=== PATIENT | male | born 1935 | race Caucasian/White ===

== ENCOUNTER 2016-04-09 21:33 | Inpatient (IN) | payer MEDICARE, BC ==
[2016-04-09] MEDS ORDERED: IV VANCOMYCIN PER PHARMACY 1 EACH MISC MISCELLANE PRN (22:04)
[2016-04-09] MEDS ORDERED: ACETAMINOPHEN TAB 325 MG TAB PO STA (22:04)
[2016-04-09] MEDS ORDERED: PIPERACILLIN-TAZOBACTAM 3.375 GM in DEXTROSE/WATER 1 50ML.BAG IVPB STA (22:04)
--- NOTE | 2016-04-09 22:09 | ED ---
Fever HPI - General Chief Complaint: Recheck/Abnormal Lab/Rx Stated Complaint: Fever Time Seen by Provider: 04/09/16 21:39 Source: patient, EMS, RN notes reviewed Mode of arrival: EMS Limitations: no limitations - History of Present Illness Initial Comments: This patient is a 80-year-old man who comes in to be evaluated for 2 days of fever. The patient states that the symptoms started yesterday in the afternoon. He also states he is feeling more fatigued. The patient is concerned he may have urinary tract infection. Patient has history of having to perform intermittent straight cath due to what sounds like neurogenic bladder. The patient had not noted any change in his urine. Patient is denying other symptoms of infection. MD Complaint: fever Onset/Timin -: days(s) Temperature Source: subjective Associated Symptoms: chills Treatments Prior to Arrival: none - Related Data Home Medications Medication Instructions Recorded Confirmed Furosemide [Lasix] 20 mg PO BID 07/17/15 11/17/15 ALPRAZolam [Xanax] 0.25 mg PO TID 11/17/15 11/17/15 Previous Rx's Medication Instructions Recorded Acetaminophen Tab [Tylenol] 650 mg PO Q6HR PRN #0 tab 07/21/15 Aspirin EC [Ecotrin Low Dose] 81 mg PO DAILY #30 tablet. 07/21/15 Insulin NPH Hum/Reg Insulin Hm See Protocol SQ AC-TID #1 vial 07/21/15 [NovoLIN 70-30 100 UNIT/ML VIAL] Nitroglycerin Sl Tabs [Nitrostat] 0.4 mg SUBLINGUAL Q5M PRN #25 tab 07/21/15 Atorvastatin [Lipitor] 40 mg PO DAILY #30 tab 11/20/15 Clopidogrel [Plavix] 75 mg PO DAILY #30 tab 11/20/15 Isosorbide Mononitrate ER [Imdur] 30 mg PO DAILY #30 tab.er.24h 11/20/15 Levofloxacin [Levaquin] 750 mg PO DAILY #7 tab 11/20/15 Lisinopril [Zestril] 5 mg PO BID #60 tab 11/20/15 Metoprolol Tartrate [Lopressor] 25 mg PO BID #60 tab 11/20/15 Allergies Allergy/AdvReac Type Severity Reaction Status Date / Time Iodinated Contrast Media - AdvReac Rash/Hives Verified 11/17/15 22:51 Oral and Review of Systems ROS Statement: Those systems with pertinent positive or pertinent negative responses have been documented in the HPI. ROS Other: All systems not noted in ROS Statement are negative. Constitutional: Reports: fever, chills, weakness Eyes: Denies: eye pain ENT: Denies: throat pain, congestion Respiratory: Denies: cough, dyspnea, hemoptysis Cardiovascular: Denies: chest pain, edema, syncope Endocrine: Reports: fatigue Gastrointestinal: Denies: abdominal pain, nausea, vomiting, diarrhea Genitourinary: Reports: as per HPI. Denies: hematuria, testicular pain Musculoskeletal: Denies: back pain Skin: Denies: rash Neurological: Denies: headache, weakness Past Medical History Past Medical History: Coronary Artery Disease (CAD), Chest Pain / Angina, CVA/ TIA, Diabetes Mellitus, Hypertension, Myocardial Infarction ([place]), Vascular Disorder Additional Past Medical History / Comment(s): URINARY RETENTION from effects from stroke REQUIRING SELF CATH,NEUROPATHY, PER OLD HX: PVD, X3 PR'S [id number]- 2007, NEUROPATHY, CVA/TIA- left arm weakness Last Myocardial Infarction Date:: 2007 History of Any Multi-Drug Resistant Organisms: None Reported Past Surgical History: Coronary Bypass/CABG, Heart Catheterization Additional Past Surgical History / Comment(s): 5 VESSLEL BYPASS 2006, stent RT leg , nimisha CATARACT SX-LENS IMPLANT Past Anesthesia/Blood Transfusion Reactions: No Reported Reaction Date of Last Stent Placement:: 2011 Past Psychological History: No Psychological Hx Reported Smoking Status: Former smoker Past Alcohol Use History: None Reported Additional Past Alcohol Use History / Comment(s): smoked for 23 yrs- quit smoking 2007- smoked 2 PPD. Heavy etoh in the past - not current. Quit 40 years ago. Past Drug Use History: None Reported - Past Family History Brother(s) Family Medical History: Myocardial Infarction ([place]) Mother Family Medical History: Diabetes Mellitus Additional Family Medical History / Comment(s): AT AGE 93 Father Family Medical History: Myocardial Infarction ([place]) Additional Family Medical History / Comment(s): AT AGE 83 FROM [place]. General Exam General appearance: alert, in no apparent distress Head exam: Present: atraumatic, normocephalic Eye exam: Present: normal appearance. Absent: scleral icterus, conjunctival injection ENT exam: Present: mucous membranes dry Neck exam: Present: normal inspection. Absent: meningismus Respiratory exam: Present: normal lung sounds bilaterally. Absent: respiratory distress, wheezes, rales, rhonchi, stridor Cardiovascular Exam: Present: normal rhythm, tachycardia, normal heart sounds. Absent: systolic murmur, diastolic murmur, rubs, gallop GI/Abdominal exam: Present: soft. Absent: distended, tenderness, guarding, rebound, mass Extremities exam: Present: normal inspection, normal capillary refill. Absent: pedal edema, calf tenderness Back exam: Absent: CVA tenderness (R), CVA tenderness (L) Neurological exam: Present: alert, oriented X3 Skin exam: Present: warm, dry, intact, normal color. Absent: rash Course Vital Signs 04/09/16 04/10/16 04/10/16 21:37 00:06 01:46 Temperature 102.2 F H 100.2 F H Pulse Rate 107 H 88 88 Respiratory 16 20 20 Rate Blood Pressure 120/51 117/48 O2 Sat by Pulse 97 97 Oximetry 04/10/16 04/10/16 04/10/16 02:13 03:06 03:33 Temperature 97.7 F Pulse Rate 85 72 76 Respiratory 18 20 18 Rate Blood Pressure 116/56 142/61 114/50 O2 Sat by Pulse 98 94 L Oximetry 04/10/16 04:38 Temperature 97.5 F L Pulse Rate 78 Respiratory 20 Rate Blood Pressure 127/51 O2 Sat by Pulse 98 Oximetry Medical Decision Making - Medical Decision Making Patient is 80-year-old man who presents with fever and is found to have urinary tract infection. I had arranged admission for the patient. He had started antibiotics. While he was waiting for a room here, he developed substernal pain that radiated towards the neck, which sounded very typical for angina. Patient given morphine, nitroglycerin, heparin started. The EKG did show some ST depressions in leads V3-V6, concerning for ischemia. The patient did have resolution of the symptoms and his EKG showed improvement in the ST depressions. Cardiology consultation is added. The patient's repeat troponin is stable. - Lab Data Result diagrams: 04/10/16 02:58 04/10/16 02:58 Lab Results 04/09/16 04/09/16 04/09/16 Range/Units 21:50 21:50 21:50 WBC 17.3 H (3.8-10.6) k/uL RBC 4.59 (4.30-5.90) m/uL Hgb 12.3 L (13.0-17.5) gm/dL Hct 37.6 L (39.0-53.0) % MCV 81.8 (80.0-100.0) fL MCH 26.8 (25.0-35.0) pg MCHC 32.7 (31.0-37.0) g/dL RDW 15.4 (11.5-15.5) % Plt Count 158 (150-450) k/uL Neutrophils % 87 % Lymphocytes % 7 % Monocytes % 5 % Eosinophils % 0 % Basophils % 0 % Neutrophils # 15.0 H (1.3-7.7) k/uL Lymphocytes # 1.2 (1.0-4.8) k/uL Monocytes # 0.9 (0-1.0) k/uL Eosinophils # 0.0 (0-0.7) k/uL Basophils # 0.1 (0-0.2) k/uL PT (9.0-12.0) sec INR (<1.1) APTT (22.0-30.0) sec Sodium 140 (137-145) mmol/L Potassium 4.6 (3.5-5.1) mmol/L Chloride 104 (98-107) mmol/L Carbon Dioxide 22 (22-30) mmol/L Anion Gap 14 mmol/L BUN 57 H (9-20) mg/dL Creatinine 1.50 H (0.66-1.25) mg/dL Est GFR (MDRD) Af Amer 55 (>60 ml/min/1.73 sqM) Est GFR (MDRD) Non-Af 45 (>60 ml/min/1.73 sqM) Glucose 201 H (74-99) mg/dL Plasma Lactic Acid Trevor (0.7-2.0) mmol/L Calcium 9.2 (8.4-10.2) mg/dL Total Bilirubin 0.9 (0.2-1.3) mg/dL AST 27 (17-59) U/L ALT 39 (21-72) U/L Alkaline Phosphatase 114 (38-126) U/L Total Creatine Kinase 133 (55-170) U/L CK-MB (CK-2) 2.1 (0.0-2.4) ng/mL CK-MB (CK-2) Rel Index 1.6 Troponin I 0.414 H* (0.000-0.034) ng/mL Total Protein 7.2 (6.3-8.2) g/dL Albumin 3.9 (3.5-5.0) g/dL Cortisol 49 ug/dL Urine Color Urine Appearance (Clear) Urine pH (5.0-8.0) Ur Specific [place] (1.001-1.035) Urine Protein (Negative) Urine Glucose (UA) (Negative) Urine Ketones (Negative) Urine Blood (Negative) Urine Nitrate (Negative) Urine Bilirubin (Negative) Urine Urobilinogen (<2.0) mg/dL Ur Leukocyte Esterase (Negative) Urine RBC (0-5) /hpf Urine WBC (0-5) /hpf Urine WBC Clumps (None) /hpf Ur Squamous Epith Cells (0-4) /hpf Amorphous Sediment (None) /hpf Urine Bacteria (None) /hpf Urine Mucus (None) /hpf 04/09/16 04/09/16 04/09/16 Range/Units 21:50 21:50 21:50 WBC (3.8-10.6) k/uL RBC (4.30-5.90) m/uL Hgb (13.0-17.5) gm/dL Hct (39.0-53.0) % MCV (80.0-100.0) fL MCH (25.0-35.0) pg MCHC (31.0-37.0) g/dL RDW (11.5-15.5) % Plt Count (150-450) k/uL Neutrophils % % Lymphocytes % % Monocytes % % Eosinophils % % Basophils % % Neutrophils # (1.3-7.7) k/uL Lymphocytes # (1.0-4.8) k/uL Monocytes # (0-1.0) k/uL Eosinophils # (0-0.7) k/uL Basophils # (0-0.2) k/uL PT 11.7 (9.0-12.0) sec INR 1.2 (<1.1) APTT 25.7 (22.0-30.0) sec Sodium (137-145) mmol/L Potassium (3.5-5.1) mmol/L Chloride (98-107) mmol/L Carbon Dioxide (22-30) mmol/L Anion Gap mmol/L BUN (9-20) mg/dL Creatinine (0.66-1.25) mg/dL Est GFR (MDRD) Af Amer (>60 ml/min/1.73 sqM) Est GFR (MDRD) Non-Af (>60 ml/min/1.73 sqM) Glucose (74-99) mg/dL Plasma Lactic Acid Trevor 1.2 (0.7-2.0) mmol/L Calcium (8.4-10.2) mg/dL Total Bilirubin (0.2-1.3) mg/dL AST (17-59) U/L ALT (21-72) U/L Alkaline Phosphatase (38-126) U/L Total Creatine Kinase (55-170) U/L CK-MB (CK-2) (0.0-2.4) ng/mL CK-MB (CK-2) Rel Index Troponin I (0.000-0.034) ng/mL Total Protein (6.3-8.2) g/dL Albumin (3.5-5.0) g/dL Cortisol ug/dL Urine Color Yellow Urine Appearance Cloudy (Clear) Urine pH 5.5 (5.0-8.0) Ur Specific [place] 1.009 (1.001-1.035) Urine Protein 1+ H (Negative) Urine Glucose (UA) Negative (Negative) Urine Ketones Negative (Negative) Urine Blood Moderate H (Negative) Urine Nitrate Positive (Negative) Urine Bilirubin Negative (Negative) Urine Urobilinogen <2.0 (<2.0) mg/dL Ur Leukocyte Esterase Large H (Negative) Urine RBC 5 (0-5) /hpf Urine WBC 96 H (0-5) /hpf Urine WBC Clumps Few H (None) /hpf Ur Squamous Epith Cells <1 (0-4) /hpf Amorphous Sediment Rare H (None) /hpf Urine Bacteria Few H (None) /hpf Urine Mucus Rare H (None) /hpf - EKG Data -: EKG Interpreted by Tx EKG shows normal: sinus rhythm, axis (Normal), intervals (The PA interval was 232 ms consistent with a first-degree AV block other intervals normal), QRS complexes (Normal), ST-T waves (Normal) Critical Care Time Critical Care Time: Yes (45 minutes) Disposition Clinical Impression: Urinary tract infection, Sepsis, Acute coronary syndrome Disposition: ADMITTED IP TO THIS HOSP Condition: Serious
[2016-04-09] MEDS ORDERED: VANCOMYCIN 1,250 MG in SODIUM CHLORIDE 0.9% 250 ML IVPB ONE (22:30)
[2016-04-09 22:38] LABS: Basophils # (A) 0.1 k/uL (0-0.2); Basophils % (A) 0 %; CH 27.4; CHCM 33.6; Eosinophils % (A) 0 %; HCT 37.6 % (39.0-53.0); HDW 2.66; HGB 12.3 gm/dL (13.0-17.5); Luc # (Auto) 0.13; Luc % (Auto) 1; Lymphocytes # (A) 1.2 k/uL (1.0-4.8); Lymphocytes % (A) 7 %; MCH 26.8 pg (25.0-35.0); MCHC 32.7 g/dL (31.0-37.0); MCV 81.8 fL (80.0-100.0); Mean Platelet Volume 7.7; Monocytes # (A) 0.9 k/uL (0-1.0); Monocytes % (A) 5 %; Neutrophils % (A) 87 %; RBC 4.59 m/uL (4.30-5.90); RDW 15.4 % (11.5-15.5); WBC 17.3 k/uL (3.8-10.6); WBC (Perox) 17.29
[2016-04-09 22:44] LABS: Amorphous Sediment,Urine Rare /hpf; Appearance,Urine Cloudy (Clear); Bacteria,Urine Few /hpf; Bilirubin,Urine Negative (Negative); Glucose,Urine (UA) Negative (Negative); Ketones,Urine Negative (Negative); Leukocyte Esterase,Urine Large (Negative); Mucus,Urine Rare /hpf; Nitrite,Urine Positive (Negative); PH, Urine 5.5 (5.0-8.0); Particle Count 50505; Protein,Urine 1+ (Negative); RBC,Urine 5 /hpf (0-5); Specific Gravity,Urine 1.009 (1.001-1.035); Squamous Epithelial Cell,Urine <1 /hpf (0-4); UA Billing (MACRO vs. MICRO) MICRO; Urobilinogen,Urine <2.0 mg/dL (<2.0); WBC,Urine 96 /hpf (0-5)
[2016-04-09 22:46] LABS: INR 1.2 (<1.1); Partial Thromboplastin Time 25.7 sec (22.0-30.0); Prothrombin Time 11.7 sec (9.0-12.0)
[2016-04-09 22:48] LABS: Calcium 9.2 mg/dL (8.4-10.2); Potassium 4.6 mmol/L (3.5-5.1); Total Bilirubin 0.9 mg/dL (0.2-1.3); Total Protein 7.2 g/dL (6.3-8.2)
--- NOTE | 2016-04-09 23:06 | XR ---
EXAMINATION TYPE: XR chest 1V portable DATE OF EXAM: 04/09/2016 10:58 PM COMPARISON: 11/17/2015 HISTORY: Fever history of CAD [place] hypertension. TECHNIQUE: Single frontal view of the chest is obtained. FINDINGS: Mild chronic changes are noted in both lungs with scarring and atelectasis in the left lung base. There is no focal air space opacity, pleural effusion, or pneumothorax seen. The cardiac silhouette size is within normal limits. Postsurgical changes of sternotomy are present. The osseous structures are intact. IMPRESSION: 1. No active pulmonary infiltrates. 2. No significant interval change.
[2016-04-09 23:12] LABS: Creatine Kinase MB 2.1 ng/mL (0.0-2.4)
[2016-04-09 23:14] LABS: Troponin I 0.414 ng/mL (0.000-0.034)
[2016-04-09] MEDS ORDERED: NALOXONE 0.4 MG/ML 1 ML VIAL IV PRN (23:52)
[2016-04-09] MEDS ORDERED: DOCUSATE 100 MG CAP PO PRN (23:52)
[2016-04-09] MEDS ORDERED: ONDANSETRON 4 MG/2 ML VIAL IVP PRN (23:52)
[2016-04-10] MEDS ORDERED: HYDROcodone/APAP 5-325MG 1 EACH TAB PO STA
[2016-04-10] MEDS: ACETAMINOPHEN TAB 325 MG TAB PO PRN ×2 (00:08→16:13)
[2016-04-10] MEDS ORDERED: ASPIRIN 81 MG CHEW PO STA (01:11)
[2016-04-10] MEDS ORDERED: HEPARIN SODIUM,PORCINE 5,000 UNIT/ML 1 ML VIAL IV ONE (01:12)
[2016-04-10] MEDS ORDERED: HEPARIN SODIUM,PORCINE 5,000 UNIT/ML 1 ML VIAL IV PRN (01:12)
[2016-04-10] MEDS: NITROGLYCERIN SL TABS 0.4 MG TAB SUBLINGUAL PRN ×2 (01:14→01:19)
[2016-04-10] MEDS ORDERED: HEPARIN SODIUM,PORCINE/D5W PMX 25,000 UNIT in DEXTROSE/WATER 1 500ML.BAG IV SCH (01:15)
[2016-04-10] MEDS ORDERED: MORPHINE SULFATE 4 MG/ML SYRINGE IV STA ×2 (01:27→02:48)
[2016-04-10] MEDS ORDERED: NITROGLYCERIN-D5W PMX 50 MG in DEXTROSE/WATER 1 250ML.BAG IV SCH ×2 (03:00→14:30)
[2016-04-10 03:13] LABS: Basophils % (A) 0 %; CH 26.6; CHCM 31.5; Eosinophils % (A) 0 %; HCT 35.3 % (39.0-53.0); HDW 2.46; HGB 11.2 gm/dL (13.0-17.5); Luc # (Auto) 0.17; Luc % (Auto) 1; Lymphocytes # (A) 2.4 k/uL (1.0-4.8); Lymphocytes % (A) 15 %; MCH 26.9 pg (25.0-35.0); MCHC 31.7 g/dL (31.0-37.0); MCV 84.8 fL (80.0-100.0); Mean Platelet Volume 7.2; Monocytes # (A) 0.6 k/uL (0-1.0); Monocytes % (A) 4 %; Neutrophils % (A) 80 %; RBC 4.17 m/uL (4.30-5.90); RDW 14.9 % (11.5-15.5); WBC 16.2 k/uL (3.8-10.6); WBC (Perox) 16.94
[2016-04-10 03:47] LABS: Creatine Kinase MB 1.6 ng/mL (0.0-2.4); Troponin I 0.349 ng/mL (0.000-0.034)
[2016-04-10 04:06] LABS: Calcium 8.4 mg/dL (8.4-10.2); Potassium 4.4 mmol/L (3.5-5.1)
[2016-04-10 08:32] LABS: Glucose,Whole Blood 219 mg/dL (75-99)
[2016-04-10] MEDS ORDERED: ISOSORBIDE MONONITRATE ER 30 MG TAB.ER.24H PO SCH (09:00)
[2016-04-10] MEDS ORDERED: METOPROLOL TARTRATE 25 MG TAB PO SCH (09:00)
[2016-04-10 10:07] LABS: Creatine Kinase MB 3.3 ng/mL (0.0-2.4); Troponin I 0.415 ng/mL (0.000-0.034)
[2016-04-10 13:23] LABS: Hemoglobin A1C 9.3 % (4.2-6.1)
[2016-04-10] MEDS: SODIUM CHLORIDE 0.9% 500 ML IV SCH ×4 (14:05→15:08)
[2016-04-10] MEDS: SODIUM CHLORIDE 0.9% 1,000 ML IV SCH ×3 (14:30→16:04)
[2016-04-10] MEDS: INSULIN LISPRO (humaLOG) 300 UNIT/3 ML VIAL SQ SCH ×4 (15:09→21:13)
[2016-04-10 15:23] VITALS: BMI 24.2
[2016-04-10] MEDS: HYDROmorphone 1 MG/ML 1 ML SYRINGE IVP PRN (15:31)
[2016-04-10] MEDS: PIPERACILLIN-TAZOBACTAM 3.375 GM in DEXTROSE/WATER 1 50ML.BAG IVPB SCH ×2 (15:36→18:39)
[2016-04-10] MEDS: ASPIRIN 81 MG CHEW PO SCH (15:41)
[2016-04-10] MEDS: FAMOTIDINE 20 MG TAB PO SCH ×2 (15:41→20:22)
[2016-04-10] MEDS: FUROSEMIDE 20 MG TAB PO SCH ×2 (15:41→20:21)
[2016-04-10] MEDS: ATORVASTATIN 40 MG TAB PO SCH (15:41)
[2016-04-10] MEDS: ALPRAZolam 0.25 MG TAB PO SCH ×3 (15:41→21:13)
[2016-04-10] MEDS: LISINOPRIL 5 MG TAB PO SCH ×2 (15:42→20:21)
[2016-04-10] MEDS ORDERED: TEMAZEPAM 15 MG CAP PO PRN (15:55)
[2016-04-10] MEDS ORDERED: HYDROcodone/APAP 5-325MG 1 EACH TAB PO PRN (15:55)
--- NOTE | 2016-04-10 15:57 | P.CRDCN ---
History of Present Illness History of present illness: 80-year-old male patient presenting with 2 days of fever and UTI. While in the emergency room he started experiencing chest discomfort radiating to the jaw. He was treated with IV nitroglycerin and IV heparin and the discomfort resolved. He states that when he came back up here he started experiencing chest discomfort once again. He is currently on IV nitro and heparin At this time he has a history of fever for the last 2 days he has received IV antibiotics he has a UTI no nausea vomiting diarrhea no muscular skeletal discomfort no dizziness lightheadedness no undue shortness of breath he's complain of chest discomfort with associated ECG changes while on heparin and nitro Medication list was reviewed and as documented in the chart. He did not receive his cardiac medications while he was in the emergency room Cardiac catheterization from June 2015 revealed severe triple-vessel coronary artery disease with a patent SVG to the diagonal, patent MEZA to the LAD but occluded saphenous vein graft to the OM and RCA 2-D echo last year shows left ventricular ejection fraction of 50% Labs are reviewed. White count is elevated at 16.2, platelets are normal, BUN 52 creatinine 1.7 Troponins are abnormal a 0.4, 0.3, 0.4 Impression Urinary tract infection on IV antibiotics with elevated white count and febrile state Chest discomfort associated with ST depression and abnormal chronic enzymes initially relieved with nitroglycerin and IV heparin Hypertension. Patient just got his medications Acute myocardial infarction with ST depression associated with chest discomfort despite IV nitro and heparin Suggest Continue aspirin and Plavix, increase metoprolol Increase lisinopril Blood pressure control I spoke to Dr. Calles regarding coronary angiogram given the fact that he continues to have recurrent chest discomfort with ECG changes despite IV heparin and nitroglycerin Past Medical History Past Medical History: Coronary Artery Disease (CAD), Chest Pain / Angina, CVA/ TIA, Diabetes Mellitus, Hypertension, Myocardial Infarction ([place]), Vascular Disorder Additional Past Medical History / Comment(s): URINARY RETENTION from effects from stroke REQUIRING SELF CATH,NEUROPATHY, PER OLD HX: PVD, X3 DE'S [id number]- 2007, NEUROPATHY, CVA/TIA- left arm weakness Last Myocardial Infarction Date:: 2007 History of Any Multi-Drug Resistant Organisms: None Reported Past Surgical History: Coronary Bypass/CABG, Heart Catheterization Additional Past Surgical History / Comment(s): 5 VESSLEL BYPASS 2006, stent RT leg , nimisha CATARACT SX-LENS IMPLANT Past Anesthesia/Blood Transfusion Reactions: No Reported Reaction Date of Last Stent Placement:: 2011 Past Psychological History: No Psychological Hx Reported Smoking Status: Former smoker Past Alcohol Use History: None Reported Additional Past Alcohol Use History / Comment(s): smoked for 23 yrs- quit smoking 2007- smoked 2 PPD. Heavy etoh in the past - not current. Quit 40 years ago. Past Drug Use History: None Reported - Past Family History Brother(s) Family Medical History: Myocardial Infarction ([place]) Mother Family Medical History: Diabetes Mellitus Additional Family Medical History / Comment(s): AT AGE 93 Father Family Medical History: Myocardial Infarction ([place]) Additional Family Medical History / Comment(s): AT AGE 83 FROM [place]. Medications and Allergies Home Medications Medication Instructions Recorded Confirmed Type ALPRAZolam [Xanax] 0.25 mg PO TID 11/17/15 04/10/16 History Furosemide [Lasix] 40 mg PO DAILY 04/10/16 04/10/16 History Lisinopril [Zestril] 5 mg PO DAILY 04/10/16 04/10/16 History Pregabalin [Lyrica] 25 mg PO DAILY 04/10/16 04/10/16 History Allergies Allergy/AdvReac Type Severity Reaction Status Date / Time Iodinated Contrast Media - AdvReac Rash/Hives Verified 04/10/16 11:21 Oral and Physical Exam Vitals: Vital Signs Temp Pulse Resp BP Pulse Ox 04/10/16 14:41 102 H 186/84 97 04/10/16 13:52 101.5 F H 04/10/16 13:47 114 H 18 179/85 96 04/10/16 12:46 100 20 147/67 95 04/10/16 11:46 106 H 20 191/77 99 04/10/16 11:45 100.4 F H 04/10/16 10:46 90 20 161/64 100 04/10/16 09:46 76 20 136/66 97 04/10/16 08:46 82 20 164/108 90 L 04/10/16 07:46 74 18 143/57 94 L 04/10/16 06:46 78 16 150/86 98 04/10/16 04:38 97.5 F L 78 20 127/51 98 04/10/16 03:33 76 18 114/50 94 L 04/10/16 03:06 72 20 142/61 98 04/10/16 02:13 97.7 F 85 18 116/56 04/10/16 01:46 88 20 117/48 97 04/10/16 00:06 100.2 F H 88 20 120/51 97 Intake and Output 04/10/16 04/10/16 04/10/16 06:59 14:59 22:59 Output Total 1000 Balance -1000 Output: Urine 1000 Uretheral (Alves) 1000 Other: Weight 68.039 kg Patient Weight 04/11/16 06:59 Weight 68.039 kg Results 04/10/16 02:58 04/10/16 02:58 Cardiac Enzymes 04/10/16 04/10/16 Range/Units 02:58 08:46 CK-MB (CK-2) 1.6 3.3 H* (0.0-2.4) ng/mL Troponin I 0.349 H* 0.415 H* (0.000-0.034) ng/mL Coagulation 04/10/16 04/10/16 Range/Units 08:46 14:55 APTT 34.8 H 29.8 (22.0-30.0) sec CBC 04/10/16 Range/Units 02:58 WBC 16.2 H (3.8-10.6) k/uL RBC 4.17 L (4.30-5.90) m/uL Hgb 11.2 L (13.0-17.5) gm/dL Hct 35.3 L (39.0-53.0) % Plt Count 168 (150-450) k/uL Comprehensive Metabolic Panel 04/10/16 Range/Units 02:58 Sodium 142 (137-145) mmol/L Potassium 4.4 (3.5-5.1) mmol/L Chloride 110 H (98-107) mmol/L Carbon Dioxide 18 L (22-30) mmol/L BUN 52 H (9-20) mg/dL Creatinine 1.70 H (0.66-1.25) mg/dL Glucose 216 H (74-99) mg/dL Calcium 8.4 (8.4-10.2) mg/dL Current Medications Generic Name Dose Route Start Last Admin Trade Name Freq PRN Reason Stop Dose Admin Acetaminophen 650 mg 04/09/16 23:52 04/10/16 00:08 Tylenol Tab PO 650 mg Q6HR PRN Administration Mild Pain or Fever > 100.5 Acetaminophen/Hydrocodone Bitart 1 each 04/10/16 15:55 [place] 5-325 PO Q6HR PRN Pain Alprazolam 0.25 mg 04/10/16 09:00 04/10/16 15:41 Xanax PO 0.25 mg TID KODY Administration Aspirin 81 mg 04/10/16 09:00 04/10/16 15:41 Aspirin PO 81 mg DAILY KODY Administration Atorvastatin Calcium 40 mg 04/10/16 09:00 04/10/16 15:41 Lipitor PO 40 mg DAILY KODY Administration Clopidogrel Bisulfate 75 mg 04/10/16 09:00 Plavix PO DAILY [facility] Docusate Sodium 100 mg 04/09/16 23:52 Colace PO BID PRN Constipation Famotidine 20 mg 04/10/16 09:00 04/10/16 15:41 Pepcid PO 20 mg BID KODY Administration Furosemide 20 mg 04/10/16 09:00 04/10/16 15:41 Lasix PO 20 mg BID KODY Administration Heparin Sodium (Porcine) 0 unit 04/10/16 01:12 Heparin IV PER PROTOCOL PRN Low PTT Protocol Hydromorphone HCl 0.5 mg 04/10/16 15:14 04/10/16 15:31 Dilaudid IVP 0.5 mg Q4HR PRN Administration Pain Sodium Chloride 1,000 mls @ 125 mls/hr 04/09/16 23:45 04/10/16 14:48 Saline 0.9% IV Not Given .Q8H [facility] Piperacillin/Tazobactam/ 50 mls @ 12.5 mls/hr 04/10/16 08:00 04/10/16 15:36 Dextrose 3.375 gm/ IV Solution IVPB Not Given Q8HR [facility] Heparin Sodium/Dextrose 25,000 500 mls @ 16.32 mls/hr 04/10/16 01:15 01:22 unit/ IV Solution IV 12 units/kg/hr .Q24H [facility] 16.32 mls/hr Protocol Administration 12 UNITS/KG/HR Vancomycin HCl 1,250 mg/ 250 mls @ 125 mls/hr 04/10/16 23:00 Sodium Chloride IVPB Q24H [facility] Nitroglycerin/Dextrose 50 mg/ 250 mls @ 6 mls/hr 04/10/16 14:30 IV Solution IV .Q24H [facility] Protocol 20 MCG/MIN Insulin Human Lispro 0 unit 04/10/16 07:30 04/10/16 15:36 Humalog SQ Not Given ACHS [facility] Protocol Lisinopril 5 mg 04/10/16 09:00 04/10/16 15:42 Zestril PO 5 mg BID [facility] Administration Metoprolol Tartrate 25 mg 04/10/16 09:00 04/10/16 15:42 Lopressor PO 25 mg BID [facility] Administration Naloxone HCl 0.2 mg 04/09/16 23:52 Narcan IV Q2M PRN Opioid Reversal Nitroglycerin 0.4 mg 04/09/16 23:54 04/10/16 01:19 Nitrostat SUBLINGUAL 0.4 mg Q5M PRN Administration Chest Pain Ondansetron HCl 4 mg 04/09/16 23:52 Zofran IVP Q8HR PRN Nausea And Vomiting Pantoprazole Sodium 40 mg 04/11/16 07:30 Protonix PO AC-BRKFST [facility] Pregabalin 25 mg 04/11/16 09:00 Lyrica PO DAILY [facility] Temazepam 15 mg 04/10/16 15:55 Restoril PO HS PRN Insomnia Intake and Output 04/10/16 04/10/16 04/10/16 06:59 14:59 22:59 Output Total 1000 Balance -1000 Output: Urine 1000 Uretheral (Alves) 1000 Other: Weight 68.039 kg Patient Weight 04/11/16 06:59 Weight 68.039 kg 04/10/16 02:58 04/10/16 02:58
[2016-04-10] MEDS: METOPROLOL TARTRATE 50 MG TAB PO SCH ×2 (16:13→21:13)
[2016-04-10] MEDS: CLOPIDOGREL 75 MG TAB PO SCH (16:13)
[2016-04-10] MEDS ORDERED: METOPROLOL TARTRATE 25 MG TAB PO STA (16:15)
[2016-04-10] MEDS ORDERED: diphenhydrAMINE 50 MG/ML 1 ML VIAL IVP STA (16:25)
[2016-04-10] MEDS ORDERED: FAMOTIDINE 20 MG/2 ML VIAL IV STA (16:25)
[2016-04-10] MEDS ORDERED: methylPREDNISolone SOD SUCCI 125 MG/2 ML VIAL IV STA (16:25)
[2016-04-10] MEDS ORDERED: IV FLUID CONTINUATION 925 ML IV ONE (16:45)
[2016-04-10] MEDS ORDERED: IV FLUID CONTINUATION 950 ML IV ONE (16:45)
[2016-04-10] MEDS ORDERED: LIDOCAINE 2% INJ 20 MG/ML (20 ML MDV) ONE (16:46)
[2016-04-10] MEDS ORDERED: methylPREDNISolone SOD SUCCI 125 MG/2 ML VIAL ONE (16:51)
[2016-04-10] MEDS ORDERED: diphenhydrAMINE 50 MG/ML 1 ML VIAL ONE (16:51)
[2016-04-10] MEDS ORDERED: methylPREDNISolone SOD SUCCI 125 MG/2 ML VIAL IVP ONE (16:55)
[2016-04-10] MEDS ORDERED: diphenhydrAMINE 50 MG/ML 1 ML VIAL IVP ONE (16:55)
[2016-04-10] MEDS ORDERED: LIDOCAINE 2% INJ 20 MG/ML SQ ONE (17:08)
[2016-04-10] MEDS ORDERED: IODIXANOL 320 MG/ML 100 ML INTRAARTER ONE (17:35)
[2016-04-10] MEDS ORDERED: RX INFO: IV CONTRAST WAS GIVEN 1 EACH MISC MISCELLANE PRN (17:38)
[2016-04-10] MEDS ORDERED: SODIUM CHLORIDE 0.9% 1,000 ML IV SCH (17:45)
[2016-04-10 18:15] LABS: Glucose,Whole Blood 219 mg/dL (75-99)
--- NOTE | 2016-04-10 18:52 | HP ---
DATE OF ADMISSION: I am covering for Dr. Duff. The chief complaints are feeling weak and afebrile. HISTORY OF PRESENT ILLNESS: This 80-year-old gentleman with a past medical history of multiple medical problems of CVA, TIA, history of CAD, diabetes mellitus, history of hypertension, history of myocardial infarction, history of urinary retention, CAD, CABG, history of cardiac catheterization, history of nicotine dependence being followed by Dr. Duff and Dr. Garcias in the outpatient setting was complaining of fever and weakness for the last 2 days. The patient apparently had intermittent straight catheterization for neurogenic bladder. The patient came to the [place] emergency room and was evaluated. Patient has elevated white count and elevated creatinine and also features of UTI. Patient admitted for further evaluation and treatment. Patient also complained of chest pain, which is felt in the anterior part of the chest which is rather pressure-type of pain without any radiating or associated symptoms. The patient received multiple medications for the pain. The troponins were also elevated to 0.414 and 0.415 indicating acute xnw-TQ-[id number] myocardial infarction. EKG showed left LVH and as well as diffuse ST-T changes. PAST MEDICAL HISTORY: History of CAD, history of CVA, TIA, history of diabetes, hypertension, myocardial infarction, history of urinary retention, history of neurogenic bladder, history of CAD, CABG, cardiac catheterization. Medications prior to admission include home medications are: 1. Lyrica 25 mg p.o. daily. 2. Nitrostat 0.4 sublingual p.r.n. 3. Lopressor 25 mg p.o. b.i.d. 4. Zestril 5 mg p.o. daily. 5. Imdur 30 mg p.o. daily. 6. Novolin N 70/30 t.i.d. 7. Lasix 40 mg p.o. daily. 8. Plavix 75 mg p.o. daily. 9. Lipitor 40 mg daily. 10. Ecotrin 81 mg p.o. daily. 11. Tylenol 650 q.6 p.r.n. 12. Xanax 0.25 t.i.d. ALLERGIES: IODINATED CONTRAST DYES. FAMILY HISTORY: History of diabetes in the family. SOCIAL HISTORY: Previous history of smoking. No history of smoking or alcohol intake. REVIEW OF SYSTEMS: ENT: No diminished hearing or diminished vision. CARDIOVASCULAR: As mentioned earlier. RESPIRATORY: No cough. GI: No nausea. : As mentioned earlier. NERVOUS SYSTEM: No numbness or weakness. ALLERGY/IMMUNOLOGY: No asthma or hayfever. MUSCULOSKELETAL: As mentioned earlier. HEMATOLOGY: No history of anemia. ENDOCRINE: No diabetes or hypothyroidism. CONSTITUTIONAL: As mentioned earlier. DERMATOLOGY: Negative. PSYCHIATRY: As mentioned earlier. PHYSICAL EXAM: The patient is alert and oriented x3. Pulse is 114, blood pressure 170/85, respirations 18, temperature 101.5, pulse ox 96% on 2 L. HEENT: Conjunctivae normal, oral mucosa moist. NECK: No jugular venous distension, no carotid bruit, no lymph node enlargement. CARDIOVASCULAR: S1, S2, muffled. No S3, no S4. RESPIRATORY: Breath sounds diminished at the bases. A few scattered rhonchi, no crackles. Abdomen is soft, nontender. No mass palpable. No hepatitis. EXTREMITIES: Legs no edema, no swelling. NERVOUS SYSTEM: Higher functions as mentioned. Moves all 4 limbs. No focal motor deficits. LYMPHATICS: No lymph node enlargement in the neck, axillae or groin. SKIN: No ulcerations, bleeding or rashes. JOINTS: No active deformity. LABS: WBC is 16.8, hemoglobin is 11.2, creatinine is 1.6. Accu-Cheks are noted. Troponins are noted. ASSESSMENT: 1. Acute chest pain with possible acute [id number] myocardial infarction with troponin 0.414. 2. Possible urinary tract infection with sepsis, present on admission, possibly during . 3. Increased creatinine, possibly acute on chronic kidney failure. 4. Anemia, normocytic. 5. Increased WBC. 6. History of coronary artery disease, coronary artery bypass grafting. 7. History of cerebrovascular accident, transient ischemic attack. 8. Diabetes mellitus type 2. 9. Hypertension. 10. History of myocardial infarction. 11. History of urinary retention with self-catheterization. 12. Remote history of nicotine dependence. 13. Remote history of Ethyl alcohol. 14. FULL CODE. RECOMMENDATION: In this 80-year-old gentleman who presented with multiple complex medical issues, will monitor the patient closely. Continue with the current medications. Continue with the symptomatic treatment. Continue with antiplatelet agents and beta blockers. We will follow the patient closely with Cardiology. The patient was started on Zosyn and vanco. Will obtain the cultures. Guarded prognosis because of multiple complex medical issues. Further recommendations to follow. Discussed with the patient. Home medications are reconciliation was performed last night. Dr. Fred Duff will follow. [facility]
[2016-04-10 20:56] LABS: Glucose,Whole Blood 248 mg/dL (75-99)
[2016-04-11] MEDS: VANCOMYCIN 1,250 MG in SODIUM CHLORIDE 0.9% 250 ML IVPB SCH ×2 (02:03→21:56)
[2016-04-11] MEDS: SODIUM CHLORIDE 0.9% 1,000 ML IV SCH ×4 (02:11→15:54)
[2016-04-11] MEDS: PIPERACILLIN-TAZOBACTAM 3.375 GM in DEXTROSE/WATER 1 50ML.BAG IVPB SCH ×4 (04:06→23:15)
[2016-04-11 06:14] LABS: Basophils % (A) 0 %; CH 26.5; CHCM 30.3; Eosinophils % (A) 0 %; HCT 38.5 % (39.0-53.0); HDW 2.58; HGB 11.9 gm/dL (13.0-17.5); Hypochromasia Moderate; Luc # (Auto) 0.04; Luc % (Auto) 0; Lymphocytes % (A) 8 %; MCH 27.3 pg (25.0-35.0); MCV 87.9 fL (80.0-100.0); Mean Platelet Volume 7.1; Monocytes # (A) 0.3 k/uL (0-1.0); Monocytes % (A) 3 %; Neutrophils # (A) 10.6 k/uL (1.3-7.7); Neutrophils % (A) 88 %; RBC 4.38 m/uL (4.30-5.90); RDW 15.3 % (11.5-15.5); WBC (Perox) 12.51
[2016-04-11 06:25] LABS: Glucose,Whole Blood 301 mg/dL (75-99)
[2016-04-11 06:26] LABS: Calcium 8.4 mg/dL (8.4-10.2); Potassium 4.4 mmol/L (3.5-5.1)
[2016-04-11] MEDS: INSULIN LISPRO (humaLOG) 300 UNIT/3 ML VIAL SQ SCH ×4 (06:48→21:47)
[2016-04-11] MEDS ORDERED: PANTOPRAZOLE 40 MG TABLET PO SCH (07:30)
[2016-04-11] MEDS: ALPRAZolam 0.25 MG TAB PO SCH ×3 (09:10→21:47)
[2016-04-11] MEDS: METOPROLOL TARTRATE 50 MG TAB PO SCH ×2 (09:11→21:47)
[2016-04-11] MEDS: ISOSORBIDE MONONITRATE ER 30 MG TAB.ER.24H PO SCH (09:11)
[2016-04-11] MEDS: ATORVASTATIN 40 MG TAB PO SCH (09:11)
[2016-04-11] MEDS: ASPIRIN 81 MG CHEW PO SCH (09:11)
[2016-04-11] MEDS: CLOPIDOGREL 75 MG TAB PO SCH (09:11)
[2016-04-11] MEDS: FAMOTIDINE 20 MG TAB PO SCH (09:11)
[2016-04-11] MEDS: FUROSEMIDE 20 MG TAB PO SCH (09:11)
[2016-04-11] MEDS: LISINOPRIL 5 MG TAB PO SCH ×2 (09:11→21:47)
[2016-04-11] MEDS: PREGABALIN 25 MG CAP PO SCH (09:12)
--- NOTE | 2016-04-11 09:21 | P.NPCON ---
History of Present Illness - Reason for Consult acute renal failure - History of Present Illness Reason for consultation: Acute kidney injury History of present illness: Patient is a 80-year-old male seen in renal consultation for acute kidney injury. 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 Creatinine today is 1.4. He does have history of urinary retention and performs self catheterizations at home. He presented with fever as well as a urinary tract infection. He did complete course of oral antibiotics at home but is unsure as to the name of the antibiotic. He is currently maintained on IV Zosyn and vancomycin. He subsequently developed chest pain and underwent a cardiac catheterization on April 10. No interventions were done but he was noted to have disease of the circumflex. Currently denies any active chest pain or shortness of breath. Denies any vomiting or diarrhea. Appetite is fair. Does take pain medications [id number] but is unsure of the name. Admits to good urine output. No hematuria or dysuria. Vital signs are stable. General: The patient appeared well nourished and normally developed. HEENT: Head exam is unremarkable. Neck is without jugular venous distension. LUNGS: Lungs are clear to auscultation and percussion. Breath sounds decreased. HEART: Rate and Rhythm are regular. First and second heart sounds normal. No murmurs, rubs or gallops. ABDOMEN: Abdominal exam reveals normal bowel sounds. Non-tender and non- distended. No evidence of peritonitis. EXTREMITITES: No clubbing, cyanosis, or edema. Past Medical History Past Medical History: Coronary Artery Disease (CAD), Chest Pain / Angina, CVA/ TIA, Diabetes Mellitus, Hypertension, Myocardial Infarction (MS), Vascular Disorder Additional Past Medical History / Comment(s): URINARY RETENTION from effects from stroke REQUIRING SELF CATH,NEUROPATHY, PER OLD HX: PVD, X3 MS'S [id number]- 2007, NEUROPATHY, CVA/TIA- left arm weakness Last Myocardial Infarction Date:: 2007 History of Any Multi-Drug Resistant Organisms: None Reported Past Surgical History: Coronary Bypass/CABG, Heart Catheterization Additional Past Surgical History / Comment(s): 5 VESSLEL BYPASS 2006, stent RT leg , nimisha CATARACT SX-LENS IMPLANT Past Anesthesia/Blood Transfusion Reactions: No Reported Reaction Date of Last Stent Placement:: 2011 Past Psychological History: No Psychological Hx Reported Smoking Status: Former smoker Past Alcohol Use History: None Reported Additional Past Alcohol Use History / Comment(s): smoked for 23 yrs- quit smoking 2007- smoked 2 PPD. Heavy etoh in the past - not current. Quit 40 years ago. Past Drug Use History: None Reported - Past Family History Brother(s) Family Medical History: Myocardial Infarction (MS) Mother Family Medical History: Diabetes Mellitus Additional Family Medical History / Comment(s): AT AGE 93 Father Family Medical History: Myocardial Infarction (MS) Additional Family Medical History / Comment(s): AT AGE 83 FROM MS. Medications and Allergies Home Medications Medication Instructions Recorded Confirmed Type ALPRAZolam [Xanax] 0.25 mg PO TID 11/17/15 04/10/16 History Furosemide [Lasix] 40 mg PO DAILY 04/10/16 04/10/16 History Lisinopril [Zestril] 5 mg PO DAILY 04/10/16 04/10/16 History Pregabalin [Lyrica] 25 mg PO DAILY 04/10/16 04/10/16 History Allergies Allergy/AdvReac Type Severity Reaction Status Date / Time Iodinated Contrast Media - AdvReac Rash/Hives Verified 04/10/16 11:21 Oral and Physical Exam Vitals: Vital Signs Temp Pulse Pulse Resp BP BP Pulse Ox 04/11/16 04:00 97.0 F L 73 16 171/73 92 L 04/11/16 00:00 98.1 F 65 17 140/63 96 04/10/16 20:45 76 16 145/63 93 L 04/10/16 20:00 97.4 F L 76 16 126/60 94 L 04/10/16 19:15 76 16 109/56 04/10/16 18:45 76 16 138/64 04/10/16 18:30 74 16 120/57 04/10/16 18:15 77 16 158/74 04/10/16 18:00 97.1 F L 72 12 123/60 04/10/16 17:26 20 04/10/16 16:23 99.8 F H 04/10/16 16:00 112 H 16 04/10/16 14:45 101.4 F H 112 H 16 191/79 95 04/10/16 14:41 102 H 186/84 97 01/22/17 13:52 101.5 F H 04/10/16 13:47 114 H 18 179/85 96 04/10/16 12:46 100 20 147/67 95 04/10/16 11:46 106 H 20 191/77 99 04/10/16 11:45 100.4 F H 04/10/16 10:46 90 20 161/64 100 04/10/16 09:46 76 20 136/66 97 Intake and Output 04/10/16 04/11/16 04/11/16 22:59 06:59 14:59 Intake Total 100 1300 100 Output Total 1700 Balance 100 -400 100 Intake: IV 100 1300 Piperacillin-Tazobactam 3 50 .375 gm In Dextrose/Water 1 50ml.bag @ 12.5 mls/hr IVPB Q8HR [facility] Rx#: [id number] Sodium Chloride 0.9% 1, 1000 000 ml @ 100 mls/hr IV . Q10H [facility] Rx#:[id number] Vancomycin 1,250 mg In 250 Sodium Chloride 0.9% 250 ml @ 125 mls/hr IVPB Q24H [facility] Rx#:[id number] Oral 100 Output: Urine 1700 Uretheral (Alves) 400 Other: Voiding Method Indwelling Catheter Indwelling Catheter # Bowel Movements 1 Weight 68 kg Results - Lab Results Most recent lab results Calcium 8.4 mg/dL (8.4-10.2) 04/11/16 05:47 04/11/16 05:47 04/11/16 05:47 Assessment and Plan Plan: Assessment: #1. Nonoliguric acute kidney injury mostly prerenal in nature secondary to sepsis and NSTEMI. Creatinine was 1.7 yesterday and is improved to 1.4 today. #2. Chronic kidney disease stage III secondary to diabetic kidney disease with baseline creatinine in the range of 1.2-1.4. #3. Chronic urinary retention. Patient performs self catheterizations. #4. Non-ST elevated myocardial infarction. #5. Urinary tract infection. #6. Hypertension with chronic kidney disease. #7. Diastolic CHF. #8. Hyperchloremic metabolic acidosis secondary to IV fluids. Plan: I will decrease rate of IV fluids to 75 mL an hour. Avoid nephrotoxic agents and hypotensive episodes. Follow-up cultures. Currently on antibiotics. Monitor vancomycin levels. It appears patient will need intervention to the circumflex. At that time, fluids will continue at 75 mL an hour. I will also give him 4 doses of Mucomyst. Continue to monitor renal function and urine output. Start oral sodium bicarbonate 650 mg twice daily. Thank you for the consultation. I will continue to follow the patient with you during his hospital stay.
[2016-04-11] MEDS: SODIUM BICARBONATE TAB 650 MG TAB PO SCH ×2 (10:25→21:47)
[2016-04-11 11:38] LABS: Glucose,Whole Blood 301 mg/dL (75-99)
--- NOTE | 2016-04-11 12:23 | P.PN ---
Subjective Principal diagnosis: Urinary tract infection; acute non-ST elevation myocardial infarction Patient is 80-year-old white male with complex medical history admitted with sepsis secondary to of urinary tract infection, chest pain secondary to acute non-ST elevation myocardial infarction, and acute on chronic renal failure. Last night patient underwent heart catheterization with evidence of disease of the circumflex, no interventions were done. Patient is evaluated from selective care unit. Denies chills, fevers, nausea, vomiting, shortness of breath, chest pain, abdominal pain, constipation, or diarrhea. Alves catheter has been inserted, urine output adequate. Afebrile. WBC decreased to 12. Hemoglobin stable at 11.9. Creatinine decreased to 1.4. Glucose 315. Objective - Vital Signs Vital signs: Vital Signs Temp 96.9 F L 04/11/16 08:00 Pulse 78 04/11/16 08:00 Resp 16 04/11/16 04:00 BP 175/70 04/11/16 08:00 Pulse Ox 94 L 04/11/16 08:00 Intake & Output 04/10/16 04/11/16 04/11/16 18:59 06:59 18:59 Intake Total 100 1300 100 Output Total 1000 1700 Balance -900 -400 100 Weight 68.039 kg 68 kg Intake: IV 100 1300 Piperacillin-Tazobactam 3 50 .375 gm In Dextrose/Water 1 50ml.bag @ 12.5 mls/hr IVPB Q8HR [facility] Rx#: [id number] Sodium Chloride 0.9% 1, 1000 000 ml @ 100 mls/hr IV . Q10H [facility] Rx#:[id number] Vancomycin 1,250 mg In 250 Sodium Chloride 0.9% 250 ml @ 125 mls/hr IVPB Q24H [facility] Rx#:[id number] Oral 100 Output: Urine 1000 1700 Uretheral (Alves) 1000 400 Other: Voiding Method Indwelling Catheter Indwelling Catheter Indwelling Catheter # Bowel Movements 1 - Exam GENERAL: Pt awake and alert, well-appearing, well-nourished, and in no acute distress. HEAD: Atraumatic, normocephalic. EYES: Pupils equal and round. Sclera anicteric, conjunctiva are normal. ENT: Moist mucous membranes. NECK:Normal range of motion, supple without lymphadenopathy or JVD. LUNGS: Breath sounds clear to auscultation bilaterally. No wheezes, rales, or rhonchi. HEART: Heart S1, S2, no S3 or S4. Regular rate and rhythm. No murmurs, rubs or gallops. ABDOMEN: Soft, nontender, nondistended, normoactive bowel sounds. No guarding, no rebound. No masses or organomegaly appreciated. EXTREMITIES: 2+ peripheral pulses. No edema. No calf tenderness. NEUROLOGICAL: Pt oriented x 3. Cranial nerves II through XII grossly intact. Strength and sensation grossly intact. PSYCH: Normal mood, normal affect. SKIN: Warm, dry, intact. Normal turgor. No rashes or lesions. - Labs CBC & Chem 7: 04/11/16 05:47 04/11/16 05:47 Labs: Abnormal Lab Results - Last 24 Hours (Table) 04/10/16 04/10/16 04/10/16 Range/Units 02:58 18:11 20:54 WBC (3.8-10.6) k/uL Hgb (13.0-17.5) gm/dL Hct (39.0-53.0) % Neutrophils # (1.3-7.7) k/uL Chloride (98-107) mmol/L Carbon Dioxide (22-30) mmol/L BUN (9-20) mg/dL Creatinine (0.66-1.25) mg/dL Glucose (74-99) mg/dL POC Glucose (mg/dL) 219 H 248 H (75-99) mg/dL Hemoglobin A1c 9.3 H (4.2-6.1) % 04/11/16 04/11/16 04/11/16 Range/Units 05:47 05:47 06:23 WBC 12.0 H (3.8-10.6) k/uL Hgb 11.9 L (13.0-17.5) gm/dL Hct 38.5 L (39.0-53.0) % Neutrophils # 10.6 H (1.3-7.7) k/uL Chloride 111 H (98-107) mmol/L Carbon Dioxide 18 L (22-30) mmol/L BUN 43 H (9-20) mg/dL Creatinine 1.40 H (0.66-1.25) mg/dL Glucose 315 H (74-99) mg/dL POC Glucose (mg/dL) 301 H (75-99) mg/dL Hemoglobin A1c (4.2-6.1) % 04/11/16 Range/Units 11:37 WBC (3.8-10.6) k/uL Hgb (13.0-17.5) gm/dL Hct (39.0-53.0) % Neutrophils # (1.3-7.7) k/uL Chloride (98-107) mmol/L Carbon Dioxide (22-30) mmol/L BUN (9-20) mg/dL Creatinine (0.66-1.25) mg/dL Glucose (74-99) mg/dL POC Glucose (mg/dL) 301 H (75-99) mg/dL Hemoglobin A1c (4.2-6.1) % Assessment and Plan Plan: Impression and plan: 1. Acute chest pain secondary to acute non-ST elevation myocardial infarction status post heart catheterization with no intervention at this point. Patient will need intervention once infection is cleared. Cardiology consult in place, recommendations noted. Continue Imdur. 2. Sepsis suspect secondary to urinary tract infection, present on admission. Continue IV antibiotics in the form of Zosyn and vancomycin. Await results of urine and blood cultures. 3. Acute renal failure secondary to sepsis and non-STEMI. Creatinine improved from 1.7-1.4. Nephrology consult in place, recommendations noted. IV fluids has been cut down to 75 mL an hour, patient has been started on sodium bicarbonate. Patient will be given 4 doses of Mucomyst. 4. Chronic kidney failure, stage III secondary to diabetic kidney disease with baseline creatinine in the range of 1.2-1.4. 5. Anemia, normocytic. 6. Leukocytosis. 7. History of coronary artery disease and coronary artery bypass grafting. Continue aspirin. 8. History of cerebrovascular accident, transient ischemic attack. Continue aspirin and Plavix. 9. Diabetes mellitus type 2. Continue Accu-Cheks before meals at bedtime with Humalog sliding scale. Continue consistent carbohydrate diet. Consult to childbirth educator in place. 10. Hypertension with chronic kidney disease. Continue metoprolol, lisinopril.. 11. Chronic diastolic congestive heart failure. Ejection fraction 50%. Continue Lasix. 12. Hyperchloremic metabolic acidosis secondary to IV fluids. IV fluids has been decreased to 75 mL an hour. 13. Hyperlipidemia. Continue Lipitor. 14. 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 Continue Lyrica. 15. History of myocardial infarction. 16. History of neurogenic bladder and urinary retention with self- catheterization. 17. History of remote alcohol abuse. 18. DVT prophylaxis. Continue subcu heparin. Continue pneumatic compression sleeves. 19. GI prophylaxis. Continue Pepcid. 20. Repeat CBC and BMP in a.m. The above impression and plan have been discussed and directed by Dr. Duff. Beatrice KIMBROUGH acting as scribe for Dr. Duff.
--- NOTE | 2016-04-11 13:02 | CC ---
DATE OF SERVICE: PERFORMING PHYSICIAN: Caden Garcias M.D. job development specialist. PROCEDURE PERFORMED: 1. Selective left and right coronary angiogram. 2. SVG to diag angiogram. 3. MEZA to LAD angiogram. INDICATION: This is a pleasant 80-year-old gentleman who is known to have coronary artery disease, peripheral arterial disease, hypertension, and dyslipidemia presented to the hospital complaining of chest discomfort. The last heart catheterization was performed in June 2015 and at that point it showed severe disease involving the left and right coronary system with patent venograph to diagonal and patent MEZA to the LAD. These are the two grafts identified at that time. This time he presented to the hospital with symptoms of UTI, but he was experiencing chest discomfort and EKG changes consistent with ischemia. He was seen and evaluated by Dr. Le who recommended proceeding with a heart catheterization. Approach: Right common femoral artery. COMPLICATIONS: None. Level of sedation: Moderate. PROCEDURE DESCRIPTION: After obtaining an informed consent, the patient was brought to the cardiac cath lab radiology technician. The right common femoral artery was cannulated using micropuncture technique. The micropuncture wire passed easily. Then I placed 6 Mongolian sheath in the right common femoral artery. After that, I did selective left and right coronary angiogram using JL4 and JR4 catheters. SVG to diagonal angiogram and MEZA to LAD angiogram was performed using the JR4 catheter. The procedure was completed without any complication. SELECTIVE CORONARY ANGIOGRAM: 1. The left main is a moderate caliber vessel. The distal left main has critical disease, appeared to be in the range of 70%. It bifurcates into the left anterior descending artery, and left circumflex. 2. The left circumflex: The ostial and proximal left circumflex has a tight lesion appeared to have a tight lesion appeared to be in the range of 80% to 90%. The mid left circumflex and distal left circumflex appeared to have mild disease only. In the proximal portion, the left circumflex gives rise into 2 small diagonal branches obtuse marginal branches. Distally bifurcates into PDA branch and PLV branches. 3. Left anterior descending artery: 100% occluded from the ostium. 4. The RCA is 100% occluded in the midportion. CORONARY BYPASS ANGIOGRAM: 1. Vein graft to diagonal is patent. 2. MEZA to LAD is patent. CONCLUSION: 1. Severe left main coronary artery disease. 2. Occluded right coronary artery. 3. The left internal mammary artery to the left anterior descending coronary artery is patent. 4. The saphenous vein graft to diagonal is patent. 5. The saphenous vein graft to left circumflex seems to be occluded. POSTPROCEDURE MANAGEMENT: The patient will benefit from PCI of the left circumflex coronary artery which seems to unprotected. I will do that once his UTI symptoms have improved and also once he is hydrated enough in view of the chronic kidney disease. At the same time, we will maximize medical treatment at this point.
--- NOTE | 2016-04-11 14:59 | P.PN ---
Subjective Principal diagnosis: Fever and UTI This is a pleasant 80-year-old gentleman who presented to the hospital with 2 days of fever and UTI. While in the emergency room patient started experiencing some chest discomfort with radiation to the jaw. He was treated with IV nitroglycerin and heparin and the discomfort resolved. On arrival to the floor patient again began developing chest pain, had associated EKG changes in spite of being on nitroglycerin and heparin drips, for this reason patient was taken to the cardiac catheterization lab. Cardiac catheterization revealed severe left main coronary artery disease with occluded right coronary artery, left internal mammary artery to the LAD was patent, SVG to the diagonal patent, SVG to the circumflex occluded. It is felt that the patient would benefit from PCI of the left circumflex artery which seems to be unprotected. Once the symptoms of UTI and fever have subsided this will be performed. Overall patient was seen and examined today, denies any further chest discomfort. BUN is 43, creatinine 1.4. Blood pressure 160/70, heart rate in the 60s. Objective - Vital Signs Vital signs: Vital Signs Temp 96.9 F L 04/11/16 08:00 Pulse 65 04/11/16 12:00 Resp 16 04/11/16 04:00 BP 164/70 04/11/16 12:00 Pulse Ox 95 04/11/16 12:00 Intake & Output 04/10/16 04/11/16 04/11/16 18:59 06:59 18:59 Intake Total 100 1300 750 Output Total 1000 1700 Balance -900 -400 750 Weight 68.039 kg 68 kg 68 kg Intake: IV 100 1300 650 Piperacillin-Tazobactam 3 50 50 .375 gm In Dextrose/Water 1 50ml.bag @ 12.5 mls/hr IVPB Q8HR [facility] Rx#: [id number] Sodium Chloride 0.9% 1, 1000 600 000 ml @ 100 mls/hr IV . Q10H [facility] Rx#:[id number] Vancomycin 1,250 mg In 250 Sodium Chloride 0.9% 250 ml @ 125 mls/hr IVPB Q24H [facility] Rx#:[id number] Oral 100 Output: Urine 1000 1700 Uretheral (Alves) 1000 400 Other: Voiding Method Indwelling Catheter Indwelling Catheter Indwelling Catheter # Bowel Movements 1 - Exam PHYSICAL EXAMINATION: HEENT: Head is atraumatic, normocephalic. Pupils equal, round. Neck is supple. There is no elevated jugular venous pressure. HEART EXAMINATION: Heart S1, S2 normal. No murmur or gallop heard. CHEST EXAMINATION: Lungs are clear to auscultation and precussion. No chest wall tenderness is noted on palpation or with deep breathing. ABDOMEN: Soft, nontender. Bowel sounds are heard. No organomegaly noted. Right groin soft, no evidence of any hematoma. EXTREMITIES: 2+ peripheral pulses with no evidence of peripheral edema and no calf tenderness noted. NEUROLOGIC patient is awake, alert and oriented -3. . - Labs CBC & Chem 7: 04/11/16 05:47 04/11/16 05:47 Labs: Abnormal Lab Results - Last 24 Hours (Table) 04/10/16 04/10/16 04/11/16 Range/Units 18:11 20:54 05:47 WBC 12.0 H (3.8-10.6) k/uL Hgb 11.9 L (13.0-17.5) gm/dL Hct 38.5 L (39.0-53.0) % Neutrophils # 10.6 H (1.3-7.7) k/uL Chloride (98-107) mmol/L Carbon Dioxide (22-30) mmol/L BUN (9-20) mg/dL Creatinine (0.66-1.25) mg/dL Glucose (74-99) mg/dL POC Glucose (mg/dL) 219 H 248 H (75-99) mg/dL 04/11/16 04/11/16 04/11/16 Range/Units 05:47 06:23 11:37 WBC (3.8-10.6) k/uL Hgb (13.0-17.5) gm/dL Hct (39.0-53.0) % Neutrophils # (1.3-7.7) k/uL Chloride 111 H (98-107) mmol/L Carbon Dioxide 18 L (22-30) mmol/L BUN 43 H (9-20) mg/dL Creatinine 1.40 H (0.66-1.25) mg/dL Glucose 315 H (74-99) mg/dL POC Glucose (mg/dL) 301 H 301 H (75-99) mg/dL Assessment and Plan (1) S/P cardiac cath Status: Acute (2) Acute coronary syndrome Status: Acute (3) Sepsis Status: Acute (4) Urinary tract infection Status: Acute (5) Diabetes mellitus Status: Acute (6) Fever Status: Acute Plan: From cardiology's perspective, we'll continue the patient on his current medications. Once he is stable from a sepsis and UTI perspective, he will undergo circumflex stenting. DNP note has been reviewed, I agree with a documented findings and plan of care. Patient was seen and examined.
--- NOTE | 2016-04-11 16:02 | CDI ---
In responding to this query, please exercise your independent professional judgment. The [facility] Coding Staff and Clinical Documentation Specialists appreciate your assistance in clarifying documentation, maintaining compliance with coding guidelines, accurately documenting patients condition and capturing severity of illness. The fact that a question is asked does not imply that any particular answer is desired or expected. Communication forms are a method of clarifying documentation and are not made part of the Legal Health Record. Thank you in advance for your clarification. Last Revision, January [address] [facility] [address] Documentation Clarification Form Date: 04/11/2016 3:56:00 PM From: Mitzy Gupta Admit Date: 04/09/2016 11:52:00 PM Patient Name: Fred Patton Visit Number: [id number] Dr. Fred Duff and Beatrice Patterson NP History/Risk Factors: Patient self caths Urinary retention Neurogenic bladder CVA history Diabetes Mellitus type 2 Clinical Indicators: Vital Signs: temp 102.2, hr 107, rr 16 WBC: 17.3 Urinalysis: cloudy, 1+ protein, moderate blood, +nitrate, large leuks, wbc 96 Urine Culture: gram negative bacilli (preliminary report) Treatment: Antibiotics: IV Zosyn, IV Vancomycin IV fluids Please document the condition that these clinical indicators signify, whether Present on Admission, and cause if known: UTI If due to catheter, device or implant, please document Contaminated specimen Unable to determine Other Please document in your progress notes and discharge summary in order to capture severity of illness and risk of mortality. Include clinical findings that support your diagnosis. FYI: Press F11 to launch patient chart. Place X here if this finding has no clinical significance, is not applicable or if you are not able to provide any additional documentation. TUAN
[2016-04-11 16:55] LABS: Glucose,Whole Blood 258 mg/dL (75-99)
[2016-04-11 20:45] LABS: Glucose,Whole Blood 209 mg/dL (75-99)
[2016-04-11] MEDS: HEPARIN SODIUM,PORCINE 5,000 UNIT/ML 1 ML VIAL SQ SCH (21:46)
[2016-04-12] MEDS: SODIUM CHLORIDE 0.9% 1,000 ML IV SCH ×2 (05:54→17:22)
[2016-04-12 06:22] LABS: Glucose,Whole Blood 284 mg/dL (75-99)
[2016-04-12] MEDS: INSULIN LISPRO (humaLOG) 300 UNIT/3 ML VIAL SQ SCH ×6 (06:35→20:37)
[2016-04-12 06:56] LABS: Basophils % (A) 0 %; CH 27.2; Eosinophils % (A) 0 %; HCT 36.5 % (39.0-53.0); HDW 2.85; HGB 11.8 gm/dL (13.0-17.5); Luc # (Auto) 0.09; Luc % (Auto) 1; Lymphocytes # (A) 1.4 k/uL (1.0-4.8); Lymphocytes % (A) 11 %; MCH 26.8 pg (25.0-35.0); MCHC 32.2 g/dL (31.0-37.0); MCV 83.1 fL (80.0-100.0); Mean Platelet Volume 7.8; Monocytes # (A) 0.8 k/uL (0-1.0); Monocytes % (A) 6 %; Neutrophils # (A) 10.9 k/uL (1.3-7.7); Neutrophils % (A) 82 %; RBC 4.39 m/uL (4.30-5.90); RDW 15.5 % (11.5-15.5); WBC 13.3 k/uL (3.8-10.6); WBC (Perox) 13.13
[2016-04-12 07:08] LABS: Calcium 8.4 mg/dL (8.4-10.2); Potassium 4.1 mmol/L (3.5-5.1)
[2016-04-12] MEDS: PIPERACILLIN-TAZOBACTAM 3.375 GM in DEXTROSE/WATER 1 50ML.BAG IVPB SCH ×3 (08:46→23:57)
[2016-04-12] MEDS: ASPIRIN 81 MG CHEW PO SCH (08:53)
[2016-04-12] MEDS: ALPRAZolam 0.25 MG TAB PO SCH (08:53)
[2016-04-12] MEDS: CLOPIDOGREL 75 MG TAB PO SCH (08:53)
[2016-04-12] MEDS: ATORVASTATIN 40 MG TAB PO SCH (08:53)
[2016-04-12] MEDS: FAMOTIDINE 20 MG TAB PO SCH (08:54)
[2016-04-12] MEDS: LISINOPRIL 5 MG TAB PO SCH (08:56)
[2016-04-12] MEDS: ISOSORBIDE MONONITRATE ER 30 MG TAB.ER.24H PO SCH (08:56)
[2016-04-12] MEDS: HEPARIN SODIUM,PORCINE 5,000 UNIT/ML 1 ML VIAL SQ SCH ×2 (08:56→20:36)
[2016-04-12] MEDS: METOPROLOL TARTRATE 50 MG TAB PO SCH ×2 (08:57→20:36)
[2016-04-12] MEDS: SODIUM BICARBONATE TAB 650 MG TAB PO SCH ×2 (08:57→20:36)
[2016-04-12] MEDS: PREGABALIN 25 MG CAP PO SCH (08:57)
--- NOTE | 2016-04-12 09:35 | P.PN ---
Subjective Patient is seen in follow-up for acute kidney injury on chronic kidney disease. 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 Renal function is mildly worsened today with creatinine at 1.6. He underwent a cardiac catheterization in April 10 which revealed diffuse coronary artery disease. He will require another catheterization this admission for intervention of the left circumflex coronary artery. Currently resting in bed. Denies any active chest pain or shortness of breath. Admits to good urine output. Vital signs are stable. General: The patient appeared well nourished and normally developed. HEENT: Head exam is unremarkable. Neck is without jugular venous distension. LUNGS: Lungs are clear to auscultation and percussion. Breath sounds decreased. HEART: Rate and Rhythm are regular. First and second heart sounds normal. No murmurs, rubs or gallops. ABDOMEN: Abdominal exam reveals normal bowel sounds. Non-tender and non- distended. No evidence of peritonitis. EXTREMITITES: No clubbing, cyanosis, or edema. Objective - Vital Signs Vital signs: Vital Signs Temp 97.5 F L 04/12/16 07:44 Pulse 89 04/12/16 07:44 Resp 28 H 04/12/16 07:44 BP 178/80 04/12/16 08:13 Pulse Ox 93 L 04/12/16 07:44 Intake & Output 04/11/16 04/12/16 04/12/16 18:59 06:59 18:59 Intake Total 1030 350 180 Output Total 2100 750 Balance 1030 -1750 -570 Weight 68 kg 67.5 kg Intake: IV 650 110 Piperacillin-Tazobactam 3 50 50 .375 gm In Dextrose/Water 1 50ml.bag @ 12.5 mls/hr IVPB Q8HR [facility] Rx#: [id number] Sodium Chloride 0.9% 1, 600 000 ml @ 100 mls/hr IV . Q10H [facility] Rx#:[id number] Vancomycin 1,250 mg In 60 Sodium Chloride 0.9% 250 ml @ 125 mls/hr IVPB Q24H [facility] Rx#:[id number] Oral 380 240 180 Output: Urine 2100 750 Other: Voiding Method Indwelling Catheter Indwelling Catheter Indwelling Catheter - Labs CBC & Chem 7: 04/12/16 06:37 04/12/16 06:37 Labs: Abnormal Lab Results - Last 24 Hours (Table) 04/11/16 04/11/16 04/11/16 Range/Units 11:37 16:53 20:42 WBC (3.8-10.6) k/uL Hgb (13.0-17.5) gm/dL Hct (39.0-53.0) % Neutrophils # (1.3-7.7) k/uL Chloride (98-107) mmol/L Carbon Dioxide (22-30) mmol/L BUN (9-20) mg/dL Creatinine (0.66-1.25) mg/dL Glucose (74-99) mg/dL POC Glucose (mg/dL) 301 H 258 H 209 H (75-99) mg/dL 04/12/16 04/12/16 04/12/16 Range/Units 06:17 06:37 06:37 WBC 13.3 H (3.8-10.6) k/uL Hgb 11.8 L (13.0-17.5) gm/dL Hct 36.5 L (39.0-53.0) % Neutrophils # 10.9 H (1.3-7.7) k/uL Chloride 110 H (98-107) mmol/L Carbon Dioxide 20 L (22-30) mmol/L BUN 40 H (9-20) mg/dL Creatinine 1.60 H (0.66-1.25) mg/dL Glucose 288 H (74-99) mg/dL POC Glucose (mg/dL) 284 H (75-99) mg/dL Assessment and Plan Plan: Assessment: #1. Nonoliguric acute kidney injury mostly prerenal in nature secondary to sepsis and NSTEMI. Renal function worsened with creatinine at 1.6 today. This is related to an element of contrast-induced nephropathy which she received on April 10. #2. Chronic kidney disease stage III secondary to diabetic kidney disease with baseline creatinine in the range of 1.2-1.4. #3. Chronic urinary retention. Patient performs self catheterizations. Currently has a Alves catheter. #4. Non-ST elevated myocardial infarction. #5. Urinary tract infection. Urine culture positive for gram-negative bacilli. #6. Hypertension with chronic kidney disease. #7. Diastolic CHF. #8. Hyperchloremic metabolic acidosis secondary to IV fluids. Plan: I will decrease rate of IV fluids to 50 mL an hour. Avoid nephrotoxic agents and hypotensive episodes. Hold diuretics. Follow-up cultures. Currently on antibiotics. Monitor vancomycin levels. It appears patient will need intervention to the circumflex. At that time, fluids will continue at 75 mL an hour. I will also give him 4 doses of Mucomyst. Continue to monitor renal function and urine output. Maintain oral sodium bicarbonate 650 mg twice daily.
[2016-04-12] MEDS: FUROSEMIDE 20 MG TAB PO SCH (10:22)
[2016-04-12 11:50] LABS: Glucose,Whole Blood 222 mg/dL (75-99)
--- NOTE | 2016-04-12 12:23 | P.PN ---
Subjective Principal diagnosis: Urinary tract infection; acute non-ST elevation myocardial infarction Patient is 80-year-old white male with complex medical history admitted with sepsis secondary to of urinary tract infection, chest pain secondary to acute non-ST elevation myocardial infarction, and acute on chronic renal failure. Patient is status post heart catheterization with evidence of severe left main coronary artery disease with occluded right coronary artery, left internal mammary artery to the LAD was patent, SVG to the diagonal patent, SVG to the circumflex occluded. Plan to perform PCI of the left circumflex artery 1 to and fever has subsided. Upon examination, patient denies chills, fevers, nausea, vomiting, shortness of breath, chest pain, abdominal pain, constipation , or diarrhea. Urine output adequate. Afebrile. WBC increased to 13.3 from 12. Hemoglobin stable at 11.8. Creatinine increased to 1.6. Urine culture positive for Klebsiella pneumoniae. Objective - Vital Signs Vital signs: Vital Signs Temp 97.1 F L 04/12/16 11:06 Pulse 67 04/12/16 11:06 Resp 20 04/12/16 11:06 BP 158/66 04/12/16 11:06 Pulse Ox 91 L 04/12/16 11:06 Intake & Output 04/11/16 04/12/16 04/12/16 18:59 06:59 18:59 Intake Total 1030 350 180 Output Total 2100 750 Balance 1030 -1750 -570 Weight 68 kg 67.5 kg Intake: IV 650 110 Piperacillin-Tazobactam 3 50 50 .375 gm In Dextrose/Water 1 50ml.bag @ 12.5 mls/hr IVPB Q8HR [facility] Rx#: [id number] Sodium Chloride 0.9% 1, 600 000 ml @ 100 mls/hr IV . Q10H [facility] Rx#:[id number] Vancomycin 1,250 mg In 60 Sodium Chloride 0.9% 250 ml @ 125 mls/hr IVPB Q24H [facility] Rx#:[id number] Oral 380 240 180 Output: Urine 2100 750 Other: Voiding Method Indwelling Catheter Indwelling Catheter Indwelling Catheter - Exam GENERAL: Pt awake and alert, well-appearing, well-nourished, and in no acute distress. HEAD: Atraumatic, normocephalic. EYES: Pupils equal and round. Sclera anicteric, conjunctiva are normal. ENT: Moist mucous membranes. NECK:Normal range of motion, supple without lymphadenopathy or JVD. LUNGS: Breath sounds clear to auscultation bilaterally. No wheezes, rales, or rhonchi. HEART: Heart S1, S2, no S3 or S4. Regular rate and rhythm. No murmurs, rubs or gallops. ABDOMEN: Soft, nontender, nondistended, normoactive bowel sounds. No guarding, no rebound. No masses or organomegaly appreciated. EXTREMITIES: 2+ peripheral pulses. No edema. No calf tenderness. NEUROLOGICAL: Pt oriented x 3. Cranial nerves II through XII grossly intact. Strength and sensation grossly intact. PSYCH: Normal mood, normal affect. SKIN: Warm, dry, intact. Normal turgor. No rashes or lesions. - Labs CBC & Chem 7: 04/12/16 06:37 04/12/16 06:37 Labs: Abnormal Lab Results - Last 24 Hours (Table) 04/11/16 04/11/16 04/12/16 Range/Units 16:53 20:42 06:17 WBC (3.8-10.6) k/uL Hgb (13.0-17.5) gm/dL Hct (39.0-53.0) % Neutrophils # (1.3-7.7) k/uL Chloride (98-107) mmol/L Carbon Dioxide (22-30) mmol/L BUN (9-20) mg/dL Creatinine (0.66-1.25) mg/dL Glucose (74-99) mg/dL POC Glucose (mg/dL) 258 H 209 H 284 H (75-99) mg/dL 04/12/16 04/12/16 04/12/16 Range/Units 06:37 06:37 11:47 WBC 13.3 H (3.8-10.6) k/uL Hgb 11.8 L (13.0-17.5) gm/dL Hct 36.5 L (39.0-53.0) % Neutrophils # 10.9 H (1.3-7.7) k/uL Chloride 110 H (98-107) mmol/L Carbon Dioxide 20 L (22-30) mmol/L BUN 40 H (9-20) mg/dL Creatinine 1.60 H (0.66-1.25) mg/dL Glucose 288 H (74-99) mg/dL POC Glucose (mg/dL) 222 H (75-99) mg/dL Assessment and Plan Plan: Impression and plan: 1. Acute chest pain secondary to acute non-ST elevation myocardial infarction status post heart catheterization with no intervention at this point. Patient will need intervention once infection is cleared. Cardiology consult in place, recommendations noted. 2. Sepsis suspect secondary to urinary tract infection, present on admission. Continue IV antibiotics in the form of Zosyn. Will discontinue vancomycin. Urine culture with evidence of Klebsiella pneumoniae. 3. Acute renal failure secondary to sepsis and non-STEMI and contrast induced. Creatinine slightly worsened to 1.6 from 1.4. Nephrology consult in place, recommendations noted. Continue sodium bicarbonate. Patient will be given 4 doses of Mucomyst. 4. Chronic kidney failure, stage III secondary to diabetic kidney disease with baseline creatinine in the range of 1.2-1.4. 5. Anemia, normocytic. 6. Leukocytosis. WBC increased to 13.3 from 12. 7. History of coronary artery disease and coronary artery bypass grafting. Continue aspirin. 8. History of cerebrovascular accident, transient ischemic attack. Continue aspirin and Plavix. 9. Diabetes mellitus type 2. Initiate Lantus protocol. Continue Accu-Cheks before meals at bedtime with Humalog sliding scale. Continue consistent carbohydrate diet. Consult to patient educator in place. 10. Hypertension with chronic kidney disease. Continue metoprolol, lisinopril. 11. Chronic diastolic congestive heart failure. Ejection fraction 50%. Lasix at this time has been discontinued secondary to renal failure. 12. Hyperchloremic metabolic acidosis secondary to IV fluids. IV fluids has been decreased to 50 mL an hour. 13. Hyperlipidemia. Continue Lipitor. 14. 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 Continue Lyrica. 15. History of myocardial infarction. 16. History of neurogenic bladder and urinary retention with self- catheterization. 17. History of remote alcohol abuse. 18. DVT prophylaxis. Continue subcu heparin. Continue pneumatic compression sleeves. 19. GI prophylaxis. Continue Pepcid. 20. Repeat CBC and BMP in a.m. The above impression and plan have been discussed and directed by Dr. Duff. Beatrice KIMBROUGH acting as scribe for Dr. Duff.
[2016-04-12] MEDS ORDERED: NITROGLYCERIN SL TABS 0.4 MG TAB SUBLINGUAL PRN (14:15)
[2016-04-12] MEDS ORDERED: SODIUM CHLORIDE 0.9% 1,000 ML in EMPTY BAG 1 BAG IV ONE (14:15)
[2016-04-12] MEDS ORDERED: ALPRAZolam 0.25 MG TAB PO PRN (14:15)
[2016-04-12] MEDS ORDERED: ASPIRIN 325 MG TAB PO STA (14:15)
[2016-04-12] MEDS ORDERED: ATORVASTATIN 80 MG TAB PO STA (14:15)
[2016-04-12] MEDS ORDERED: ALPRAZolam 0.5 MG TAB PO PRN (14:15)
--- NOTE | 2016-04-12 14:18 | P.PN ---
Subjective Principal diagnosis: Fever and UTI This is a pleasant 80-year-old gentleman who presented to the hospital with 2 days of fever and UTI. While in the emergency room patient started experiencing some chest discomfort with radiation to the jaw. He was treated with IV nitroglycerin and heparin and the discomfort resolved. On arrival to the floor patient again began developing chest pain, had associated EKG changes in spite of being on nitroglycerin and heparin drips, for this reason patient was taken to the cardiac catheterization lab. Cardiac catheterization revealed severe left main coronary artery disease with occluded right coronary artery, left internal mammary artery to the LAD was patent, SVG to the diagonal patent, SVG to the circumflex occluded. It is felt that the patient would benefit from PCI of the left circumflex artery which seems to be unprotected. Patient has remained afebrile, white blood cell count today 13, creatinine 1.6. Currently receiving IV fluids at 75 mL an hour. Blood pressure 178/80 earlier this morning, 158/66 now. We will add Norvasc to his medication regime and decrease the Lisinopril to once daily. Patient will be scheduled tomorrow to undergo intervention of the circumflex artery by Dr. Calles. The risks and the benefits were explained to the patient in detail. We will check lytes BUN and creatinine in the morning. Objective - Vital Signs Vital signs: Vital Signs Temp 97.1 F L 04/12/16 11:06 Pulse 79 04/12/16 12:00 Resp 20 04/12/16 11:06 BP 158/66 04/12/16 11:06 Pulse Ox 91 L 04/12/16 11:06 Intake & Output 04/11/16 04/12/16 04/12/16 18:59 06:59 18:59 Intake Total 1030 350 180 Output Total 2100 750 Balance 1030 1750 -570 Weight 68 kg 67.5 kg Intake: IV 650 110 Piperacillin-Tazobactam 3 50 50 .375 gm In Dextrose/Water 1 50ml.bag @ 12.5 mls/hr IVPB Q8HR [facility] Rx#: [id number] Sodium Chloride 0.9% 1, 600 000 ml @ 100 mls/hr IV . Q10H [facility] Rx#:[id number] Vancomycin 1,250 mg In 60 Sodium Chloride 0.9% 250 ml @ 125 mls/hr IVPB Q24H [facility] Rx#:[id number] Oral 380 240 180 Output: Urine 2100 750 Other: Voiding Method Indwelling Catheter Indwelling Catheter Indwelling Catheter - Exam PHYSICAL EXAMINATION: HEENT: Head is atraumatic, normocephalic. Pupils equal, round. Neck is supple. There is no elevated jugular venous pressure. HEART EXAMINATION: Heart S1, S2 normal. No murmur or gallop heard. CHEST EXAMINATION: Lungs are clear to auscultation and precussion. No chest wall tenderness is noted on palpation or with deep breathing. ABDOMEN: Soft, nontender. Bowel sounds are heard. No organomegaly noted. Right groin soft, no evidence of any hematoma. EXTREMITIES: 2+ peripheral pulses with no evidence of peripheral edema and no calf tenderness noted. NEUROLOGIC patient is awake, alert and oriented -3. . - Labs CBC & Chem 7: 04/12/16 06:37 04/12/16 06:37 Labs: Abnormal Lab Results - Last 24 Hours (Table) 04/11/16 04/11/16 04/12/16 Range/Units 16:53 20:42 06:17 WBC (3.8-10.6) k/uL Hgb (13.0-17.5) gm/dL Hct (39.0-53.0) % Neutrophils # (1.3-7.7) k/uL Chloride (98-107) mmol/L Carbon Dioxide (22-30) mmol/L BUN (9-20) mg/dL Creatinine (0.66-1.25) mg/dL Glucose (74-99) mg/dL POC Glucose (mg/dL) 258 H 209 H 284 H (75-99) mg/dL 04/12/16 04/12/16 04/12/16 Range/Units 06:37 06:37 11:47 WBC 13.3 H (3.8-10.6) k/uL Hgb 11.8 L (13.0-17.5) gm/dL Hct 36.5 L (39.0-53.0) % Neutrophils # 10.9 H (1.3-7.7) k/uL Chloride 110 H (98-107) mmol/L Carbon Dioxide 20 L (22-30) mmol/L BUN 40 H (9-20) mg/dL Creatinine 1.60 H (0.66-1.25) mg/dL Glucose 288 H (74-99) mg/dL POC Glucose (mg/dL) 222 H (75-99) mg/dL Assessment and Plan (1) S/P cardiac cath Status: Acute (2) Acute coronary syndrome Status: Acute (3) Sepsis Status: Acute (4) Urinary tract infection Status: Acute (5) Diabetes mellitus Status: Acute (6) Fever Status: Acute Plan: From cardiology's perspective, we will add Norvasc to the patient's medication regime, decreased LLOYD inhibitor to once daily. Check lytes BUN and creatinine in the morning. Patient will be scheduled tomorrow to undergo PCI of the circumflex artery by Dr. Calles. DNP note has been reviewed, I agree with a documented findings and plan of care. Patient was seen and examined.
[2016-04-12 16:44] LABS: Glucose,Whole Blood 97 mg/dL (75-99)
[2016-04-12] MEDS: amLODIPine 10 MG TAB PO SCH (17:20)
[2016-04-12 20:34] LABS: Glucose,Whole Blood 155 mg/dL (75-99)
[2016-04-12] MEDS: ACETYLCYSTEINE 800 MG/4 ML VIAL PO SCH (20:37)
[2016-04-12] MEDS ORDERED: INSULIN GLARGINE 100 UNIT/ML 10 ML VIAL SQ SCH (21:00)
[2016-04-12] MEDS ORDERED: VANCOMYCIN TROUGH DUE 1 EACH MISC MISCELLANE ONE (22:00)
[2016-04-13] MEDS: PIPERACILLIN-TAZOBACTAM 3.375 GM in DEXTROSE/WATER 1 50ML.BAG IVPB SCH ×3 (00:20→17:13)
[2016-04-13] MEDS: INSULIN LISPRO (humaLOG) 300 UNIT/3 ML VIAL SQ SCH ×7 (06:33→21:35)
[2016-04-13] MEDS: SODIUM CHLORIDE 0.9% 1,000 ML IV SCH ×2 (06:34→21:33)
[2016-04-13 06:37] LABS: Basophils % (A) 0 %; CH 26.8; CHCM 32.1; Eosinophils # (A) 0.2 k/uL (0-0.7); Eosinophils % (A) 2 %; HCT 37.6 % (39.0-53.0); HDW 2.76; HGB 11.6 gm/dL (13.0-17.5); Luc # (Auto) 0.15; Luc % (Auto) 1; Lymphocytes # (A) 1.7 k/uL (1.0-4.8); Lymphocytes % (A) 16 %; MCH 25.9 pg (25.0-35.0); MCHC 30.9 g/dL (31.0-37.0); MCV 83.9 fL (80.0-100.0); Mean Platelet Volume 6.9; Monocytes # (A) 0.6 k/uL (0-1.0); Monocytes % (A) 5 %; Neutrophils # (A) 8.2 k/uL (1.3-7.7); Neutrophils % (A) 76 %; RBC 4.48 m/uL (4.30-5.90); RDW 15.3 % (11.5-15.5); WBC 10.7 k/uL (3.8-10.6); WBC (Perox) 10.99
[2016-04-13] MEDS: HEPARIN SODIUM,PORCINE 5,000 UNIT/ML 1 ML VIAL SQ SCH ×2 (06:39→21:32)
[2016-04-13] MEDS: ISOSORBIDE MONONITRATE ER 30 MG TAB.ER.24H PO SCH (06:40)
[2016-04-13] MEDS: LISINOPRIL 5 MG TAB PO SCH (06:40)
[2016-04-13] MEDS: ASPIRIN 81 MG CHEW PO SCH (06:40)
[2016-04-13] MEDS: FAMOTIDINE 20 MG TAB PO SCH (06:40)
[2016-04-13] MEDS: ATORVASTATIN 40 MG TAB PO SCH (06:40)
[2016-04-13] MEDS: CLOPIDOGREL 75 MG TAB PO SCH (06:40)
[2016-04-13] MEDS: amLODIPine 10 MG TAB PO SCH (06:40)
[2016-04-13] MEDS: ACETYLCYSTEINE 800 MG/4 ML VIAL PO SCH ×2 (06:40→22:00)
[2016-04-13] MEDS: METOPROLOL TARTRATE 50 MG TAB PO SCH ×2 (06:41→21:33)
[2016-04-13] MEDS: PREGABALIN 25 MG CAP PO SCH (06:41)
[2016-04-13 06:48] LABS: Calcium 8.9 mg/dL (8.4-10.2); Potassium 3.7 mmol/L (3.5-5.1)
[2016-04-13 06:57] LABS: Glucose,Whole Blood 225 mg/dL (75-99)
[2016-04-13] MEDS: SODIUM BICARBONATE TAB 650 MG TAB PO SCH ×2 (07:31→21:33)
[2016-04-13] MEDS ORDERED: methylPREDNISolone SOD SUCCI 125 MG/2 ML VIAL IVP ONE (08:15)
--- NOTE | 2016-04-13 09:17 | P.PN ---
Subjective Patient is seen in follow-up for acute kidney injury on chronic kidney disease. 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 Renal function is improved today with creatinine down to 1.48. He underwent a cardiac catheterization in April 10 which revealed diffuse coronary artery disease. He will require another catheterization this admission for intervention of the left circumflex coronary artery. Currently resting in bed. Denies any active chest pain or shortness of breath. Admits to good urine output. Vital signs are stable. General: The patient appeared well nourished and normally developed. HEENT: Head exam is unremarkable. Neck is without jugular venous distension. LUNGS: Lungs are clear to auscultation and percussion. Breath sounds decreased. HEART: Rate and Rhythm are regular. First and second heart sounds normal. No murmurs, rubs or gallops. ABDOMEN: Abdominal exam reveals normal bowel sounds. Non-tender and non- distended. No evidence of peritonitis. EXTREMITITES: No clubbing, cyanosis, or edema. Objective - Vital Signs Vital signs: Vital Signs Temp 97.8 F 04/13/16 08:57 Pulse 84 04/13/16 08:34 Resp 16 04/13/16 08:57 BP 154/72 04/13/16 08:57 Pulse Ox 91 L 04/13/16 08:57 Intake & Output 04/12/16 04/13/16 04/13/16 18:59 06:59 18:59 Intake Total 624 700 Output Total 1750 1800 Balance -1126 -1100 Weight 70.6 kg Intake: IV 700 0.9 600 Piperacillin-Tazobactam 3 100 .375 gm In Dextrose/Water 1 50ml.bag @ 12.5 mls/hr IVPB Q8HR [facility] Rx#: [id number] Oral 624 Output: Urine 1750 1800 Other: Voiding Method Indwelling Catheter Indwelling Catheter Indwelling Catheter - Labs CBC & Chem 7: 04/13/16 05:55 04/13/16 05:55 Labs: Abnormal Lab Results - Last 24 Hours (Table) 04/12/16 04/12/16 04/13/16 Range/Units 11:47 20:32 05:55 WBC 10.7 H (3.8-10.6) k/uL Hgb 11.6 L (13.0-17.5) gm/dL Hct 37.6 L (39.0-53.0) % MCHC 30.9 L (31.0-37.0) g/dL Neutrophils # 8.2 H (1.3-7.7) k/uL BUN (9-20) mg/dL Creatinine (0.66-1.25) mg/dL Glucose (74-99) mg/dL POC Glucose (mg/dL) 222 H 155 H (75-99) mg/dL 04/13/16 04/13/16 Range/Units 05:55 06:56 WBC (3.8-10.6) k/uL Hgb (13.0-17.5) gm/dL Hct (39.0-53.0) % MCHC (31.0-37.0) g/dL Neutrophils # (1.3-7.7) k/uL BUN 26 H (9-20) mg/dL Creatinine 1.48 H (0.66-1.25) mg/dL Glucose 220 H (74-99) mg/dL POC Glucose (mg/dL) 225 H (75-99) mg/dL Assessment and Plan Plan: Assessment: #1. Nonoliguric acute kidney injury mostly prerenal in nature secondary to sepsis and NSTEMI. Also component of contrast-induced nephropathy (cath April 10). Renal function improved with creatinine at 1.48 today. #2. Chronic kidney disease stage III secondary to diabetic kidney disease with baseline creatinine in the range of 1.2-1.4. #3. Chronic urinary retention. Patient performs self catheterizations. Currently has a Alves catheter. #4. Non-ST elevated myocardial infarction. #5. Urinary tract infection. Urine culture positive for Klebsiella. #6. Hypertension with chronic kidney disease. #7. Diastolic CHF. #8. Hyperchloremic metabolic acidosis secondary to IV fluids. Improved. Plan: Maintain normal saline to be run at 75 mL an hour. Avoid nephrotoxic agents and hypotensive episodes. Hold diuretics. Currently on antibiotics. Monitor vancomycin levels. It appears patient will need intervention to the circumflex - possibly today - continue IV fluids at 75 mL an hour. Also receiving mucomyst. Continue to monitor renal function and urine output. Maintain oral sodium bicarbonate 650 mg twice daily. Continue to monitor renal function and urine output closely.
[2016-04-13 12:15] LABS: Glucose,Whole Blood 249 mg/dL (75-99)
--- NOTE | 2016-04-13 12:58 | P.PN ---
Subjective Principal diagnosis: Urinary tract infection; acute non-ST elevation myocardial infarction Patient is 80-year-old white male with complex medical history admitted with sepsis secondary to of urinary tract infection, chest pain secondary to acute non-ST elevation myocardial infarction, and acute on chronic renal failure. Patient is status post heart catheterization with evidence of severe left main coronary artery disease with occluded right coronary artery, left internal mammary artery to the LAD was patent, SVG to the diagonal patent, SVG to the circumflex occluded. Plan to perform PCI of the left circumflex artery today or tomorrow. Upon examination, patient denies chills, fevers, nausea, vomiting, shortness of breath, chest pain, abdominal pain, constipation, or diarrhea. Urine output adequate. Afebrile. WBC to 10.7. Hemoglobin stable at 11.6. Creatinine improved to 1.48 from 1.6. Urine culture positive for Klebsiella pneumoniae. Objective - Vital Signs Vital signs: Vital Signs Temp 97.8 F 04/13/16 08:57 Pulse 84 04/13/16 08:34 Resp 16 04/13/16 08:57 BP 154/72 04/13/16 08:57 Pulse Ox 91 L 04/13/16 08:57 Intake & Output 04/12/16 04/13/16 04/13/16 18:59 06:59 18:59 Intake Total 624 700 Output Total 1750 1800 Balance -1126 -1100 Weight 70.6 kg Intake: IV 700 0.9 600 Piperacillin-Tazobactam 3 100 .375 gm In Dextrose/Water 1 50ml.bag @ 12.5 mls/hr IVPB Q8HR [facility] Rx#: [id number] Oral 624 Output: Urine 1750 1800 Other: Voiding Method Indwelling Catheter Indwelling Catheter Indwelling Catheter - Exam GENERAL: Pt awake and alert, well-appearing, well-nourished, and in no acute distress. HEAD: Atraumatic, normocephalic. EYES: Pupils equal and round. Sclera anicteric, conjunctiva are normal. ENT: Moist mucous membranes. NECK:Normal range of motion, supple without lymphadenopathy or JVD. LUNGS: Breath sounds clear to auscultation bilaterally. No wheezes, rales, or rhonchi. HEART: Heart S1, S2, no S3 or S4. Regular rate and rhythm. No murmurs, rubs or gallops. ABDOMEN: Soft, nontender, nondistended, normoactive bowel sounds. No guarding, no rebound. No masses or organomegaly appreciated. EXTREMITIES: 2+ peripheral pulses. No edema. No calf tenderness. NEUROLOGICAL: Pt oriented x 3. Cranial nerves II through XII grossly intact. Strength and sensation grossly intact. PSYCH: Normal mood, normal affect. SKIN: Warm, dry, intact. Normal turgor. No rashes or lesions. - Labs CBC & Chem 7: 04/13/16 05:55 04/13/16 05:55 Labs: Abnormal Lab Results - Last 24 Hours (Table) 04/12/16 04/13/16 04/13/16 Range/Units 20:32 05:55 05:55 WBC 10.7 H (3.8-10.6) k/uL Hgb 11.6 L (13.0-17.5) gm/dL Hct 37.6 L (39.0-53.0) % MCHC 30.9 L (31.0-37.0) g/dL Neutrophils # 8.2 H (1.3-7.7) k/uL BUN 26 H (9-20) mg/dL Creatinine 1.48 H (0.66-1.25) mg/dL Glucose 220 H (74-99) mg/dL POC Glucose (mg/dL) 155 H (75-99) mg/dL 04/13/16 04/13/16 Range/Units 06:56 12:05 WBC (3.8-10.6) k/uL Hgb (13.0-17.5) gm/dL Hct (39.0-53.0) % MCHC (31.0-37.0) g/dL Neutrophils # (1.3-7.7) k/uL BUN (9-20) mg/dL Creatinine (0.66-1.25) mg/dL Glucose (74-99) mg/dL POC Glucose (mg/dL) 225 H 249 H (75-99) mg/dL Assessment and Plan Plan: Impression and plan: 1. Acute chest pain secondary to acute non-ST elevation myocardial infarction status post heart catheterization with findings of severe left main coronary artery disease with occluded right coronary artery, left internal mammary artery to the LAD was patent, SVG to the diagonal patent, SVG to circumflex occluded. Patient is scheduled for heart catheterization today for PCI of the left circumflex artery. Cardiology consult in place, recommendations noted. 2. Sepsis suspect secondary to urinary tract infection, present on admission, suspect secondary to history of neurogenic bladder with self-catheterization. Continue IV antibiotics in the form of Zosyn. Urine culture with evidence of Klebsiella pneumoniae. 3. Acute renal failure secondary to sepsis and non-STEMI and contrast induced. Creatinine improved to 1.48 from 1.6. Nephrology consult in place, recommendations noted. Continue sodium bicarbonate. 4. Chronic kidney failure, stage III secondary to diabetic kidney disease with baseline creatinine in the range of 1.2-1.4. 5. Anemia, normocytic. 6. Leukocytosis. WBC decreased to 10.7 from 13.3. 7. History of coronary artery disease and coronary artery bypass grafting. Continue aspirin. 8. History of cerebrovascular accident, transient ischemic attack. Continue aspirin and Plavix. 9. Diabetes mellitus type 2, blood sugars uncontrolled. Increase Lantus to 25 units at bedtime. Continue Accu-Cheks before meals at bedtime with Humalog sliding scale. Continue consistent carbohydrate diet. Consult to nurse educator in place. 10. Hypertension with chronic kidney disease. Continue metoprolol, lisinopril. 11. Chronic diastolic congestive heart failure. Ejection fraction 50%. Lasix at this time has been discontinued secondary to renal failure. 12. Hyperchloremic metabolic acidosis secondary to IV fluids. IV fluids has increased to 75 mL an hour pending heart catheterization. Continue Mucomyst. 13. Hyperlipidemia. Continue Lipitor. 14. 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 Continue Lyrica. 15. History of myocardial infarction. 16. History of neurogenic bladder and urinary retention with self- catheterization. 17. History of remote alcohol abuse. 18. DVT prophylaxis. Continue subcu heparin. Continue pneumatic compression sleeves. 19. GI prophylaxis. Continue Pepcid. 20. Repeat CBC and BMP in a.m. The above impression and plan have been discussed and directed by Dr. Duff. Beatrice KIMBROUGH acting as scribe for Dr. Duff.
--- NOTE | 2016-04-13 15:45 | P.PN ---
Subjective Principal diagnosis: Fever and UTI This is a pleasant 80-year-old gentleman who presented to the hospital with 2 days of fever and UTI. While in the emergency room patient started experiencing some chest discomfort with radiation to the jaw. He was treated with IV nitroglycerin and heparin and the discomfort resolved. On arrival to the floor patient again began developing chest pain, had associated EKG changes in spite of being on nitroglycerin and heparin drips, for this reason patient was taken to the cardiac catheterization lab. Cardiac catheterization revealed severe left main coronary artery disease with occluded right coronary artery, left internal mammary artery to the LAD was patent, SVG to the diagonal patent, SVG to the circumflex occluded. It is felt that the patient would benefit from PCI of the left circumflex artery which seems to be unprotected. Patient has remained afebrile, white blood cell count today 10, creatinine 1.4. Currently receiving IV fluids at 75 mL an hour. Patient was originally scheduled to undergo cardiac catheterization today, this will be performed tomorrow morning now first case by Dr. Calles. Objective - Vital Signs Vital signs: Vital Signs Temp 97.8 F 04/13/16 08:57 Pulse 84 04/13/16 08:34 Resp 16 04/13/16 08:57 BP 154/72 04/13/16 08:57 Pulse Ox 91 L 04/13/16 08:57 Intake & Output 04/12/16 04/13/16 04/13/16 18:59 06:59 18:59 Intake Total 624 700 Output Total 1750 1800 Balance -1126 -1100 Weight 70.6 kg Intake: IV 700 0.9 600 Piperacillin-Tazobactam 3 100 .375 gm In Dextrose/Water 1 50ml.bag @ 12.5 mls/hr IVPB Q8HR [facility] Rx#: [id number] Oral 624 Output: Urine 1750 1800 Other: Voiding Method Indwelling Catheter Indwelling Catheter Indwelling Catheter - Exam PHYSICAL EXAMINATION: HEENT: Head is atraumatic, normocephalic. Pupils equal, round. Neck is supple. There is no elevated jugular venous pressure. HEART EXAMINATION: Heart S1, S2 normal. No murmur or gallop heard. CHEST EXAMINATION: Lungs are clear to auscultation and precussion. No chest wall tenderness is noted on palpation or with deep breathing. ABDOMEN: Soft, nontender. Bowel sounds are heard. No organomegaly noted. Right groin soft, no evidence of any hematoma. EXTREMITIES: 2+ peripheral pulses with no evidence of peripheral edema and no calf tenderness noted. NEUROLOGIC patient is awake, alert and oriented -3. . - Labs CBC & Chem 7: 04/13/16 05:55 04/13/16 05:55 Labs: Abnormal Lab Results - Last 24 Hours (Table) 04/12/16 04/13/16 04/13/16 Range/Units 20:32 05:55 05:55 WBC 10.7 H (3.8-10.6) k/uL Hgb 11.6 L (13.0-17.5) gm/dL Hct 37.6 L (39.0-53.0) % MCHC 30.9 L (31.0-37.0) g/dL Neutrophils # 8.2 H (1.3-7.7) k/uL BUN 26 H (9-20) mg/dL Creatinine 1.48 H (0.66-1.25) mg/dL Glucose 220 H (74-99) mg/dL POC Glucose (mg/dL) 155 H (75-99) mg/dL 04/13/16 04/13/16 Range/Units 06:56 12:05 WBC (3.8-10.6) k/uL Hgb (13.0-17.5) gm/dL Hct (39.0-53.0) % MCHC (31.0-37.0) g/dL Neutrophils # (1.3-7.7) k/uL BUN (9-20) mg/dL Creatinine (0.66-1.25) mg/dL Glucose (74-99) mg/dL POC Glucose (mg/dL) 225 H 249 H (75-99) mg/dL Assessment and Plan (1) S/P cardiac cath Status: Acute (2) Acute coronary syndrome Status: Acute (3) Sepsis Status: Acute (4) Urinary tract infection Status: Acute (5) Diabetes mellitus Status: Acute (6) Fever Status: Acute Plan: From cardiology's perspective, patient will undergo PCI tomorrow morning at 7: 30. DNP note has been reviewed, I agree with a documented findings and plan of care. Patient was seen and examined.
[2016-04-13 17:30] LABS: Glucose,Whole Blood 223 mg/dL (75-99)
[2016-04-13] MEDS: INSULIN GLARGINE 100 UNIT/ML 10 ML VIAL SQ SCH (21:32)
[2016-04-13 21:36] LABS: Glucose,Whole Blood 146 mg/dL (75-99)
[2016-04-14] MEDS: HYDROmorphone 1 MG/ML 1 ML SYRINGE IVP PRN (00:15)
[2016-04-14] MEDS: predniSONE 10 MG TAB PO SCH ×4 (05:44→20:59)
[2016-04-14] MEDS: diphenhydrAMINE 25 MG CAP PO SCH ×4 (05:44→20:59)
[2016-04-14 05:58] LABS: Glucose,Whole Blood 127 mg/dL (75-99)
[2016-04-14] MEDS: INSULIN LISPRO (humaLOG) 300 UNIT/3 ML VIAL SQ SCH ×7 (06:04→21:00)
[2016-04-14] MEDS: ATORVASTATIN 40 MG TAB PO SCH (06:07)
[2016-04-14] MEDS: PREGABALIN 25 MG CAP PO SCH (06:07)
[2016-04-14] MEDS: ISOSORBIDE MONONITRATE ER 30 MG TAB.ER.24H PO SCH (06:07)
[2016-04-14] MEDS: SODIUM BICARBONATE TAB 650 MG TAB PO SCH ×2 (06:07→20:59)
[2016-04-14] MEDS: FAMOTIDINE 20 MG TAB PO SCH (06:08)
[2016-04-14] MEDS: METOPROLOL TARTRATE 50 MG TAB PO SCH ×2 (06:08→21:00)
[2016-04-14] MEDS: LISINOPRIL 5 MG TAB PO SCH (06:08)
[2016-04-14] MEDS: HEPARIN SODIUM,PORCINE 5,000 UNIT/ML 1 ML VIAL SQ SCH ×2 (06:08→21:01)
[2016-04-14] MEDS: ASPIRIN 81 MG CHEW PO SCH (06:08)
[2016-04-14] MEDS: amLODIPine 10 MG TAB PO SCH (06:08)
[2016-04-14] MEDS: CLOPIDOGREL 75 MG TAB PO SCH (06:08)
[2016-04-14 06:29] LABS: Basophils % (A) 0 %; CH 26.8; Eosinophils # (A) 0.2 k/uL (0-0.7); Eosinophils % (A) 2 %; HCT 35.6 % (39.0-53.0); HDW 2.76; HGB 11.5 gm/dL (13.0-17.5); Luc # (Auto) 0.19; Luc % (Auto) 2; Lymphocytes # (A) 1.4 k/uL (1.0-4.8); Lymphocytes % (A) 13 %; MCH 27.1 pg (25.0-35.0); MCHC 32.2 g/dL (31.0-37.0); MCV 84.2 fL (80.0-100.0); Mean Platelet Volume 6.6; Monocytes # (A) 0.6 k/uL (0-1.0); Monocytes % (A) 6 %; Neutrophils # (A) 8.2 k/uL (1.3-7.7); Neutrophils % (A) 77 %; RBC 4.23 m/uL (4.30-5.90); RDW 15.5 % (11.5-15.5); WBC 10.6 k/uL (3.8-10.6); WBC (Perox) 11.36
[2016-04-14 06:46] LABS: Calcium 8.9 mg/dL (8.4-10.2); Potassium 3.8 mmol/L (3.5-5.1)
[2016-04-14] MEDS ORDERED: IV FLUID CONTINUATION 1,000 ML IV ONE (07:23)
[2016-04-14] MEDS ORDERED: MIDAZOLAM 2 MG/2 ML VIAL IV ONE (07:45)
[2016-04-14] MEDS ORDERED: MIDAZOLAM 2 MG/2 ML VIAL ONE (07:46)
[2016-04-14] MEDS ORDERED: LIDOCAINE 2% INJ 20 MG/ML SQ ONE (07:50)
[2016-04-14] MEDS ORDERED: BIVALIRUDIN 250 MG in SODIUM CHLORIDE 0.9% 50 ML IV ONE (07:53)
[2016-04-14] MEDS ORDERED: BIVALIRUDIN BOLUS 250 MG/50 ML IV ONE (07:53)
[2016-04-14] MEDS ORDERED: HYDROmorphone 2 MG/ML 1 ML SYRINGE ONE (08:22)
[2016-04-14] MEDS: HYDROmorphone 2 MG/ML 1 ML SYRINGE IV ONE (08:24)
[2016-04-14] MEDS ORDERED: CLOPIDOGREL 75 MG TAB ONE (09:27)
[2016-04-14] MEDS ORDERED: ATROPINE SULFATE 0.1 MG/ML 10ML SYRINGE IV PRN (09:33)
[2016-04-14] MEDS ORDERED: MAG HYDROX/AL HYDROX/SIMETH 30 ML CUP PO PRN (09:33)
[2016-04-14] MEDS ORDERED: ZOLPIDEM 5 MG TAB PO PRN (09:33)
[2016-04-14] MEDS ORDERED: RX INFO: IV CONTRAST WAS GIVEN 1 EACH MISC MISCELLANE PRN (09:33)
[2016-04-14] MEDS ORDERED: NITROGLYCERIN SL TABS 0.4 MG TAB SUBLINGUAL PRN (09:33)
[2016-04-14] MEDS ORDERED: CLOPIDOGREL 75 MG TAB PO ONE (09:36)
[2016-04-14] MEDS ORDERED: SODIUM CHLORIDE 0.9% 1,000 ML IV ONE (09:36)
[2016-04-14] MEDS ORDERED: IODIXANOL 320 MG/ML 100 ML INTRAARTER ONE (09:37)
[2016-04-14] MEDS ORDERED: SODIUM CHLORIDE 0.9% 1,000 ML IV SCH (09:45)
--- NOTE | 2016-04-14 10:24 | PTCA ---
DATE OF SERVICE: 04/14/2016 PERFORMING PHYSICIAN: Caden Garcias M.D., Senior Production Manager. PROCEDURE PERFORMED: Unsuccessful balloon angioplasty of the proximal left circumflex coronary artery. INDICATION: This is a pleasant 80-year-old gentleman who came into the hospital 2 days ago with acute [id number] myocardial infarction. He underwent a heart catheterization and was found to have critical disease involving heavily calcified unprotected left circumflex coronary artery. APPROACH: Right common femoral artery. COMPLICATIONS: None. LEVEL OF SEDATION: Moderate. PROCEDURE DESCRIPTION: After obtaining an informed consent, the patient was brought to the Cardiac Braille Teacher. The right groin was prepped in the usual sterile fashion with local analgesia was achieved by injecting 2% Xylocaine subcutaneously into the right groin. The right common femoral artery was cannulated using micropuncture technique. The micropuncture wire passed easily, then I placed 6 Swazi sheath in the right common femoral artery. Subsequently, I did start anticoagulation using Angiomax. After that, I took JL 3.5 guiding catheter and the left main was engaged. I wired the left circumflex using a whisper wire. I tried initially to advance 2.0 x 12 mm balloon and I was unable. Then I tried 1.5 and I was unable. Then I tried 1.2 and I was able to do balloon angioplasty of the ostial and proximal left circumflex. Subsequently, I ballooned it using 20 x 12 mm balloon. I tried to advance 2.75 x 18 mm stent and I was unable to d it. I did use a silva wire, which was a run-through wire and I was unable. I attempted using different stent, which was the Promus and I was unable as well. Then I tried Integrity stent and I was unable. I tried also the guideliner and I was unable to cross the lesion with a stent. At that point, I decided to stop. POSTPROCEDURE MANAGEMENT: 1. Dual antiplatelet therapy. 2. Risk factor modifications. 3. Follow up with the patient.
--- NOTE | 2016-04-14 11:19 | P.PN ---
Subjective Patient is seen in follow-up for acute kidney injury on chronic kidney disease. 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 Renal function is relatively stable today with creatinine at 1.57. He underwent a cardiac catheterization in April 10 which revealed diffuse coronary artery disease. He underwent another cardiac catheterization today but the stent could not be placed. Currently resting in bed. Denies any active chest pain or shortness of breath. He is nonoliguric. Vital signs are stable. General: The patient appeared well nourished and normally developed. HEENT: Head exam is unremarkable. Neck is without jugular venous distension. LUNGS: Lungs are clear to auscultation and percussion. Breath sounds decreased. HEART: Rate and Rhythm are regular. First and second heart sounds normal. No murmurs, rubs or gallops. ABDOMEN: Abdominal exam reveals normal bowel sounds. Non-tender and non- distended. No evidence of peritonitis. EXTREMITITES: No clubbing, cyanosis, or edema. Objective - Vital Signs Vital signs: Vital Signs Temp 97.7 F 04/14/16 10:13 Pulse 72 04/14/16 10:30 Resp 16 04/14/16 10:30 BP 167/72 04/14/16 10:30 Pulse Ox 93 L 04/14/16 10:30 Intake & Output 04/13/16 04/14/16 04/14/16 18:59 06:59 18:59 Intake Total 1100 690 295.55 Output Total 800 700 Balance 300 -10 295.55 Weight 65.7 kg Intake: IV 350 690 295.55 0.9 300 640 Piperacillin-Tazobactam 3 50 50 .375 gm In Dextrose/Water 1 50ml.bag @ 12.5 mls/hr IVPB Q8HR [facility] Rx#: [id number] Oral 750 0 Output: Urine 800 700 Other: Voiding Method Indwelling Catheter Indwelling Catheter Indwelling Catheter - Labs CBC & Chem 7: 04/14/16 06:03 04/14/16 06:03 Labs: Abnormal Lab Results - Last 24 Hours (Table) 04/13/16 04/13/16 04/13/16 Range/Units 12:05 17:13 21:35 RBC (4.30-5.90) m/uL Hgb (13.0-17.5) gm/dL Hct (39.0-53.0) % Neutrophils # (1.3-7.7) k/uL Sodium (137-145) mmol/L BUN (9-20) mg/dL Creatinine (0.66-1.25) mg/dL Glucose (74-99) mg/dL POC Glucose (mg/dL) 249 H 223 H 146 H (75-99) mg/dL 04/14/16 04/14/16 04/14/16 Range/Units 05:55 06:03 06:03 RBC 4.23 L (4.30-5.90) m/uL Hgb 11.5 L (13.0-17.5) gm/dL Hct 35.6 L (39.0-53.0) % Neutrophils # 8.2 H (1.3-7.7) k/uL Sodium 146 H (137-145) mmol/L BUN 22 H (9-20) mg/dL Creatinine 1.57 H (0.66-1.25) mg/dL Glucose 132 H (74-99) mg/dL POC Glucose (mg/dL) 127 H (75-99) mg/dL Assessment and Plan Plan: Assessment: #1. Nonoliguric acute kidney injury mostly prerenal in nature secondary to sepsis and NSTEMI. Also component of contrast-induced nephropathy (cath April 10). Renal function stable. #2. Chronic kidney disease stage III secondary to diabetic kidney disease with baseline creatinine in the range of 1.2-1.4. #3. Chronic urinary retention. Patient performs self catheterizations. Currently has a Alves catheter. #4. Coronary artery disease status post cardiac catheterization on April 10 as well as April 14. #5. Urinary tract infection. Urine culture positive for Klebsiella. #6. Hypertension with chronic kidney disease. #7. Diastolic CHF. #8. Hyperchloremic metabolic acidosis secondary to IV fluids. Improved. Plan: Maintain normal saline to be run at 75 mL an hour. Avoid nephrotoxic agents and hypotensive episodes. Hold diuretics. Complete course of Mucomyst. Last dose today. Continue to monitor renal function and urine output. Maintain oral sodium bicarbonate 650 mg twice daily. Continue to monitor renal function and urine output closely.
[2016-04-14] MEDS: SODIUM CHLORIDE 0.9% 1,000 ML IV SCH (11:22)
[2016-04-14] MEDS: PIPERACILLIN-TAZOBACTAM 3.375 GM in DEXTROSE/WATER 1 50ML.BAG IVPB SCH ×3 (11:22→23:42)
[2016-04-14] MEDS: ACETYLCYSTEINE 800 MG/4 ML VIAL PO SCH (11:27)
[2016-04-14 11:52] LABS: Glucose,Whole Blood 174 mg/dL (75-99)
--- NOTE | 2016-04-14 12:19 | P.PN ---
Subjective Principal diagnosis: Urinary tract infection; acute non-ST elevation myocardial infarction Patient is 80-year-old white male with complex medical history admitted with sepsis secondary to of urinary tract infection, chest pain secondary to acute non-ST elevation myocardial infarction, and acute on chronic renal failure. Patient underwent heart catheterization on 04/10/2016 with evidence of critical disease involving heavily calcified unprotected left circumflex coronary artery. This morning patient underwent another heart catheterization with unsuccessful balloon angioplasty of the proximal left circumflex coronary artery. Upon examination, patient denies chills, fevers, nausea, vomiting, shortness of breath, chest pain, abdominal pain, constipation, or diarrhea. Right groin puncture site dry and intact. Urine output adequate. Afebrile. WBC to 10.6. Hemoglobin stable at 11.5. Creatinine 1.57 from 1.48 yesterday. Patient continues on IV antibiotics for urine culture positive for Klebsiella pneumoniae. Objective - Vital Signs Vital signs: Vital Signs Temp 97.8 F 04/14/16 11:48 Pulse 74 04/14/16 11:48 Resp 16 04/14/16 11:48 BP 186/77 04/14/16 11:48 Pulse Ox 94 L 04/14/16 11:48 Intake & Output 04/13/16 04/14/16 04/14/16 18:59 06:59 18:59 Intake Total 1100 690 295.55 Output Total 800 700 Balance 300 -10 295.55 Weight 65.7 kg Intake: IV 350 690 295.55 0.9 300 640 Piperacillin-Tazobactam 3 50 50 .375 gm In Dextrose/Water 1 50ml.bag @ 12.5 mls/hr IVPB Q8HR [facility] Rx#: [id number] Oral 750 0 Output: Urine 800 700 Other: Voiding Method Indwelling Catheter Indwelling Catheter Indwelling Catheter - Exam GENERAL: Pt awake and alert, well-appearing, well-nourished, and in no acute distress. HEAD: Atraumatic, normocephalic. EYES: Pupils equal and round. Sclera anicteric, conjunctiva are normal. ENT: Moist mucous membranes. NECK:Normal range of motion, supple without lymphadenopathy or JVD. LUNGS: Breath sounds clear to auscultation bilaterally. No wheezes, rales, or rhonchi. HEART: Heart S1, S2, no S3 or S4. Regular rate and rhythm. No murmurs, rubs or gallops. ABDOMEN: Soft, nontender, nondistended, normoactive bowel sounds. No guarding, no rebound. No masses or organomegaly appreciated. EXTREMITIES: 2+ peripheral pulses. No edema. No calf tenderness. Right groin puncture site dry, intact, soft. NEUROLOGICAL: Pt oriented x 3. Cranial nerves II through XII grossly intact. Strength and sensation grossly intact. PSYCH: Normal mood, normal affect. SKIN: Warm, dry, intact. Normal turgor. No rashes or lesions. - Labs CBC & Chem 7: 04/14/16 06:03 04/14/16 06:03 Labs: Abnormal Lab Results - Last 24 Hours (Table) 04/13/16 04/13/16 04/13/16 Range/Units 12:05 17:13 21:35 RBC (4.30-5.90) m/uL Hgb (13.0-17.5) gm/dL Hct (39.0-53.0) % Neutrophils # (1.3-7.7) k/uL Sodium (137-145) mmol/L BUN (9-20) mg/dL Creatinine (0.66-1.25) mg/dL Glucose (74-99) mg/dL POC Glucose (mg/dL) 249 H 223 H 146 H (75-99) mg/dL 04/14/16 04/14/16 04/14/16 Range/Units 05:55 06:03 06:03 RBC 4.23 L (4.30-5.90) m/uL Hgb 11.5 L (13.0-17.5) gm/dL Hct 35.6 L (39.0-53.0) % Neutrophils # 8.2 H (1.3-7.7) k/uL Sodium 146 H (137-145) mmol/L BUN 22 H (9-20) mg/dL Creatinine 1.57 H (0.66-1.25) mg/dL Glucose 132 H (74-99) mg/dL POC Glucose (mg/dL) 127 H (75-99) mg/dL 04/14/16 Range/Units 11:45 RBC (4.30-5.90) m/uL Hgb (13.0-17.5) gm/dL Hct (39.0-53.0) % Neutrophils # (1.3-7.7) k/uL Sodium (137-145) mmol/L BUN (9-20) mg/dL Creatinine (0.66-1.25) mg/dL Glucose (74-99) mg/dL POC Glucose (mg/dL) 174 H (75-99) mg/dL Assessment and Plan Plan: Impression and plan: 1. Acute chest pain secondary to acute non-ST elevation myocardial infarction status post heart catheterization on 04/10/2016 with findings of critical disease involving heavily calcified unprotected left circumflex coronary artery. Patient is status post heart catheterization on 04/14/2016 was unsuccessful balloon angioplasty of the proximal left circumflex coronary artery. Cardiology consult in place, recommendations noted. 2. Sepsis suspect secondary to urinary tract infection, present on admission, suspect secondary to history of neurogenic bladder with self-catheterization. Continue IV antibiotics in the form of Zosyn. Urine culture with evidence of Klebsiella pneumoniae. 3. Acute renal failure secondary to sepsis and non-STEMI and contrast induced. Creatinine 1.57 from 1.48 yesterday. Nephrology consult in place, recommendations noted. Continue sodium bicarbonate. Continue IV fluids at 75 mL an hour. 4. Chronic kidney failure, stage III secondary to diabetic kidney disease with baseline creatinine in the range of 1.2-1.4. 5. Anemia, normocytic. 6. Leukocytosis, present on admission, resolved. 7. History of coronary artery disease and coronary artery bypass grafting. Continue aspirin and Plavix. 8. History of cerebrovascular accident, transient ischemic attack. Continue aspirin and Plavix. 9. Diabetes mellitus type 2, blood sugars better controlled. Continue Lantus 25 units at bedtime. Continue Accu-Cheks before meals at bedtime with Humalog sliding scale. Continue consistent carbohydrate diet. Consult to nursing educator in place. 10. Hypertension with chronic kidney disease. Continue metoprolol, lisinopril , and Norvasc. 11. Chronic diastolic congestive heart failure. Ejection fraction 50%. Lasix at this time has been discontinued secondary to renal failure. 12. Hyperchloremic metabolic acidosis secondary to IV fluids, improved. 13. Hyperlipidemia. Continue Lipitor. 14. 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 Continue Lyrica. 15. History of myocardial infarction. 16. History of neurogenic bladder and urinary retention with self- catheterization. 17. History of remote alcohol abuse. 18. DVT prophylaxis. Continue subcu heparin. Continue pneumatic compression sleeves. 19. GI prophylaxis. Continue Pepcid. 20. Repeat CBC and BMP in a.m. The above impression and plan have been discussed and directed by Dr. Duff. Beatrice KIMBROUGH acting as scribe for Dr. Duff.
[2016-04-14 16:55] LABS: Glucose,Whole Blood 170 mg/dL (75-99)
[2016-04-14 20:41] LABS: Glucose,Whole Blood 208 mg/dL (75-99)
[2016-04-14] MEDS: INSULIN GLARGINE 100 UNIT/ML 10 ML VIAL SQ SCH (21:00)
[2016-04-14 23:55] LABS: Glucose,Whole Blood 246 mg/dL (75-99)
[2016-04-15] MEDS: SODIUM CHLORIDE 0.9% 1,000 ML IV SCH ×5 (05:21→21:30)
[2016-04-15 06:28] LABS: Calcium 8.6 mg/dL (8.4-10.2); Potassium 3.7 mmol/L (3.5-5.1)
[2016-04-15 06:31] LABS: Glucose,Whole Blood 219 mg/dL (75-99)
[2016-04-15 06:56] LABS: Basophils % (A) 0 %; CH 26.9; CHCM 32.3; Eosinophils % (A) 0 %; HCT 34.1 % (39.0-53.0); HDW 2.78; HGB 10.7 gm/dL (13.0-17.5); Luc # (Auto) 0.16; Luc % (Auto) 1; Lymphocytes # (A) 1.1 k/uL (1.0-4.8); Lymphocytes % (A) 9 %; MCH 26.2 pg (25.0-35.0); MCHC 31.3 g/dL (31.0-37.0); MCV 83.7 fL (80.0-100.0); Mean Platelet Volume 6.8; Monocytes # (A) 0.6 k/uL (0-1.0); Monocytes % (A) 5 %; Neutrophils # (A) 10.7 k/uL (1.3-7.7); Neutrophils % (A) 85 %; RBC 4.07 m/uL (4.30-5.90); RDW 15.4 % (11.5-15.5); WBC 12.7 k/uL (3.8-10.6); WBC (Perox) 13.32
[2016-04-15] MEDS: PIPERACILLIN-TAZOBACTAM 3.375 GM in DEXTROSE/WATER 1 50ML.BAG IVPB SCH ×2 (07:05→19:19)
[2016-04-15] MEDS: HEPARIN SODIUM,PORCINE 5,000 UNIT/ML 1 ML VIAL SQ SCH ×2 (07:06→21:28)
[2016-04-15] MEDS: diphenhydrAMINE 25 MG CAP PO SCH ×2 (07:06→21:29)
[2016-04-15] MEDS: PREGABALIN 25 MG CAP PO SCH (07:06)
[2016-04-15] MEDS: LISINOPRIL 5 MG TAB PO SCH (07:06)
[2016-04-15] MEDS: SODIUM BICARBONATE TAB 650 MG TAB PO SCH ×2 (07:07→21:23)
[2016-04-15] MEDS: ATORVASTATIN 40 MG TAB PO SCH (07:07)
[2016-04-15] MEDS: ISOSORBIDE MONONITRATE ER 30 MG TAB.ER.24H PO SCH (07:07)
[2016-04-15] MEDS: amLODIPine 10 MG TAB PO SCH (07:07)
[2016-04-15] MEDS: METOPROLOL TARTRATE 50 MG TAB PO SCH ×2 (07:07→21:23)
[2016-04-15] MEDS: predniSONE 10 MG TAB PO SCH ×2 (07:07→21:29)
[2016-04-15] MEDS: ASPIRIN 81 MG CHEW PO SCH (07:08)
[2016-04-15] MEDS: CLOPIDOGREL 75 MG TAB PO SCH (07:08)
[2016-04-15] MEDS: INSULIN LISPRO (humaLOG) 300 UNIT/3 ML VIAL SQ SCH ×7 (07:08→21:27)
[2016-04-15] MEDS: FAMOTIDINE 20 MG TAB PO SCH (07:08)
--- NOTE | 2016-04-15 07:54 | P.PN ---
Subjective Patient is seen in follow-up for acute kidney injury on chronic kidney disease. 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 Renal function is improved today with creatinine at 1.4. He underwent a cardiac catheterization in April 10 which revealed diffuse coronary artery disease. He underwent another cardiac catheterization on April 14 but the stent could not be placed. Currently resting in bed. Denies any active chest pain or shortness of breath. He is nonoliguric. Vital signs are stable. General: The patient appeared well nourished and normally developed. HEENT: Head exam is unremarkable. Neck is without jugular venous distension. LUNGS: Lungs are clear to auscultation and percussion. Breath sounds decreased. HEART: Rate and Rhythm are regular. First and second heart sounds normal. No murmurs, rubs or gallops. ABDOMEN: Abdominal exam reveals normal bowel sounds. Non-tender and non- distended. No evidence of peritonitis. EXTREMITITES: No clubbing, cyanosis, or edema. Objective - Vital Signs Vital signs: Vital Signs Temp 97.5 F L 04/15/16 04:00 Pulse 72 04/15/16 04:00 Resp 17 04/15/16 04:00 BP 148/71 04/15/16 04:00 Pulse Ox 98 04/15/16 04:00 Intake & Output 04/14/16 04/15/16 04/15/16 18:59 06:59 18:59 Intake Total 515.55 850 Output Total 1300 700 Balance -784.45 150 Weight 66 kg Intake: IV 295.55 850 0.9 800 Piperacillin-Tazobactam 3 50 .375 gm In Dextrose/Water 1 50ml.bag @ 12.5 mls/hr IVPB Q8HR [facility] Rx#: [id number] Oral 220 Output: Urine 1300 700 Other: Voiding Method Indwelling Catheter Indwelling Catheter - Labs CBC & Chem 7: 04/15/16 05:49 04/15/16 05:49 Labs: Abnormal Lab Results - Last 24 Hours (Table) 04/14/16 04/14/16 04/14/16 Range/Units 11:45 16:42 20:32 WBC (3.8-10.6) k/uL RBC (4.30-5.90) m/uL Hgb (13.0-17.5) gm/dL Hct (39.0-53.0) % Neutrophils # (1.3-7.7) k/uL Chloride (98-107) mmol/L BUN (9-20) mg/dL Creatinine (0.66-1.25) mg/dL Glucose (74-99) mg/dL POC Glucose (mg/dL) 174 H 170 H 208 H (75-99) mg/dL 04/14/16 04/15/16 04/15/16 Range/Units 23:41 05:49 05:49 WBC 12.7 H (3.8-10.6) k/uL RBC 4.07 L (4.30-5.90) m/uL Hgb 10.7 L (13.0-17.5) gm/dL Hct 34.1 L (39.0-53.0) % Neutrophils # 10.7 H (1.3-7.7) k/uL Chloride 108 H (98-107) mmol/L BUN 24 H (9-20) mg/dL Creatinine 1.40 H (0.66-1.25) mg/dL Glucose 218 H (74-99) mg/dL POC Glucose (mg/dL) 246 H (75-99) mg/dL 04/15/16 Range/Units 06:25 WBC (3.8-10.6) k/uL RBC (4.30-5.90) m/uL Hgb (13.0-17.5) gm/dL Hct (39.0-53.0) % Neutrophils # (1.3-7.7) k/uL Chloride (98-107) mmol/L BUN (9-20) mg/dL Creatinine (0.66-1.25) mg/dL Glucose (74-99) mg/dL POC Glucose (mg/dL) 219 H (75-99) mg/dL Assessment and Plan Plan: Assessment: #1. Nonoliguric acute kidney injury mostly prerenal in nature secondary to sepsis and NSTEMI. Also component of contrast-induced nephropathy (cath April 10 and April 14). Renal function stable. #2. Chronic kidney disease stage III secondary to diabetic kidney disease with baseline creatinine in the range of 1.2-1.4. #3. Chronic urinary retention. Patient performs self catheterizations. Currently has a Alves catheter. #4. Coronary artery disease status post cardiac catheterization on April 10 as well as April 14. #5. Urinary tract infection. Urine culture positive for Klebsiella. #6. Hypertension with chronic kidney disease. #7. Diastolic CHF. #8. Hyperchloremic metabolic acidosis secondary to IV fluids. Improved. Plan: Decrease normal saline to be run at 50 mL an hour. Avoid nephrotoxic agents and hypotensive episodes. Hold diuretics. S/p mucomyst. Continue to monitor renal function and urine output. Maintain oral sodium bicarbonate 650 mg twice daily. Continue to monitor renal function and urine output closely.
[2016-04-15] MEDS ORDERED: LIDOCAINE 2% INJ 20 MG/ML (20 ML MDV) ONE (11:27)
[2016-04-15] MEDS ORDERED: methylPREDNISolone SOD SUCCI 125 MG/2 ML VIAL ONE (11:27)
[2016-04-15] MEDS ORDERED: MIDAZOLAM 2 MG/2 ML VIAL ONE ×2 (11:27→12:14)
[2016-04-15] MEDS ORDERED: diphenhydrAMINE 50 MG/ML 1 ML VIAL ONE (11:27)
[2016-04-15] MEDS ORDERED: methylPREDNISolone SOD SUCCI 125 MG/2 ML VIAL IV ONE (11:50)
[2016-04-15] MEDS ORDERED: diphenhydrAMINE 50 MG/ML 1 ML VIAL IVP ONE (11:51)
[2016-04-15] MEDS ORDERED: MIDAZOLAM 2 MG/2 ML VIAL IV ONE ×2 (11:52)
[2016-04-15] MEDS ORDERED: LIDOCAINE 2% INJ 20 MG/ML SQ ONE (11:57)
[2016-04-15] MEDS ORDERED: BIVALIRUDIN BOLUS 250 MG/50 ML IV ONE (12:10)
[2016-04-15] MEDS ORDERED: BIVALIRUDIN 250 MG in SODIUM CHLORIDE 0.9% 50 ML IV ONE (12:13)
[2016-04-15] MEDS: MIDAZOLAM 2 MG/2 ML VIAL IV ONE ×2 (12:18→12:59)
[2016-04-15] MEDS ORDERED: HYDROmorphone 2 MG/ML 1 ML SYRINGE IV ONE ×2 (12:36→12:38)
[2016-04-15] MEDS ORDERED: HYDROmorphone 2 MG/ML 1 ML SYRINGE ONE (12:37)
[2016-04-15] MEDS: HYDROmorphone 2 MG/ML 1 ML SYRINGE IV ONE ×2 (12:41→12:42)
[2016-04-15] MEDS ORDERED: fentaNYL (PF) 50 MCG/ML 2 ML AMP ONE (12:43)
[2016-04-15] MEDS ORDERED: fentaNYL (PF) 50 MCG/ML 2 ML AMP IV ONE (12:44)
[2016-04-15] MEDS ORDERED: CLOPIDOGREL 75 MG TAB ONE (12:57)
[2016-04-15] MEDS ORDERED: NITROGLYCERIN 1000MCG/10ML SYRINGE INTRACORON ONE (13:04)
[2016-04-15] MEDS ORDERED: FLUMAZENIL 0.1 MG/ML 5 ML VIAL IVP ONE (13:10)
[2016-04-15] MEDS: FLUMAZENIL 0.1 MG/ML 5 ML VIAL IVP ONE ×2 (13:13→13:15)
[2016-04-15] MEDS ORDERED: CLOPIDOGREL 75 MG TAB PO ONE (13:19)
[2016-04-15] MEDS ORDERED: ATROPINE SULFATE 0.1 MG/ML 10ML SYRINGE IV PRN (13:24)
[2016-04-15] MEDS ORDERED: MAG HYDROX/AL HYDROX/SIMETH 30 ML CUP PO PRN (13:24)
[2016-04-15] MEDS ORDERED: ZOLPIDEM 5 MG TAB PO PRN (13:24)
[2016-04-15] MEDS ORDERED: NITROGLYCERIN SL TABS 0.4 MG TAB SUBLINGUAL PRN (13:24)
[2016-04-15] MEDS ORDERED: RX INFO: IV CONTRAST WAS GIVEN 1 EACH MISC MISCELLANE PRN (13:24)
--- NOTE | 2016-04-15 13:24 | P.PN ---
Subjective Principal diagnosis: Urinary tract infection; acute non-ST elevation myocardial infarction Patient is 80-year-old white male with complex medical history admitted with sepsis secondary to of urinary tract infection, chest pain secondary to acute non-ST elevation myocardial infarction, and acute on chronic renal failure. Patient underwent heart catheterization on 04/10/2016 with evidence of critical disease involving heavily calcified unprotected left circumflex coronary artery. On 04/14/2016, underwent another heart catheterization with unsuccessful balloon angioplasty of the proximal left circumflex coronary artery. Patient is scheduled to undergo another cardiac catheterization today. Upon examination, patient denies chills, fevers, nausea, vomiting, shortness of breath, chest pain, abdominal pain, constipation, or diarrhea. Right groin puncture site dry and intact. Urine output adequate. Afebrile. WBC increased to 12.7. Hemoglobin stable at 10.7. Creatinine decreased to 1.4 from 1.57 yesterday. Patient continues on IV antibiotics for urine culture positive for Klebsiella pneumoniae. Objective - Vital Signs Vital signs: Vital Signs Temp 97.8 F 04/15/16 11:30 Pulse 61 04/15/16 08:09 Resp 17 04/15/16 11:30 BP 165/74 04/15/16 11:30 Pulse Ox 94 L 04/15/16 11:30 Intake & Output 04/14/16 04/15/16 04/15/16 18:59 06:59 18:59 Intake Total 515.55 850 Output Total 1300 700 Balance -784.45 150 Weight 66 kg Intake: IV 295.55 850 0.9 800 Piperacillin-Tazobactam 3 50 .375 gm In Dextrose/Water 1 50ml.bag @ 12.5 mls/hr IVPB Q8HR [facility] Rx#: [id number] Oral 220 Output: Urine 1300 700 Other: Voiding Method Indwelling Catheter Indwelling Catheter Indwelling Catheter - Exam GENERAL: Pt awake and alert, well-appearing, well-nourished, and in no acute distress. HEAD: Atraumatic, normocephalic. EYES: Pupils equal and round. Sclera anicteric, conjunctiva are normal. ENT: Moist mucous membranes. NECK:Normal range of motion, supple without lymphadenopathy or JVD. LUNGS: Breath sounds clear to auscultation bilaterally. No wheezes, rales, or rhonchi. HEART: Heart S1, S2, no S3 or S4. Regular rate and rhythm. No murmurs, rubs or gallops. ABDOMEN: Soft, nontender, nondistended, normoactive bowel sounds. No guarding, no rebound. No masses or organomegaly appreciated. EXTREMITIES: 2+ peripheral pulses. No edema. No calf tenderness. Right groin puncture site dry, intact, soft. NEUROLOGICAL: Pt oriented x 3. Cranial nerves II through XII grossly intact. Strength and sensation grossly intact. PSYCH: Normal mood, normal affect. SKIN: Warm, dry, intact. Normal turgor. No rashes or lesions. - Labs CBC & Chem 7: 04/15/16 05:49 04/15/16 05:49 Labs: Abnormal Lab Results - Last 24 Hours (Table) 04/14/16 04/14/16 04/14/16 Range/Units 16:42 20:32 23:41 WBC (3.8-10.6) k/uL RBC (4.30-5.90) m/uL Hgb (13.0-17.5) gm/dL Hct (39.0-53.0) % Neutrophils # (1.3-7.7) k/uL Chloride (98-107) mmol/L BUN (9-20) mg/dL Creatinine (0.66-1.25) mg/dL Glucose (74-99) mg/dL POC Glucose (mg/dL) 170 H 208 H 246 H (75-99) mg/dL 04/15/16 04/15/16 04/15/16 Range/Units 05:49 05:49 06:25 WBC 12.7 H (3.8-10.6) k/uL RBC 4.07 L (4.30-5.90) m/uL Hgb 10.7 L (13.0-17.5) gm/dL Hct 34.1 L (39.0-53.0) % Neutrophils # 10.7 H (1.3-7.7) k/uL Chloride 108 H (98-107) mmol/L BUN 24 H (9-20) mg/dL Creatinine 1.40 H (0.66-1.25) mg/dL Glucose 218 H (74-99) mg/dL POC Glucose (mg/dL) 219 H (75-99) mg/dL Assessment and Plan Plan: Impression and plan: 1. Acute chest pain secondary to acute non-ST elevation myocardial infarction status post heart catheterization on 04/10/2016 with findings of critical disease involving heavily calcified unprotected left circumflex coronary artery. Patient is status post heart catheterization on 04/14/2016 with unsuccessful balloon angioplasty of the proximal left circumflex coronary artery. Patient is scheduled for another heart catheterization today. Cardiology consult in place, recommendations noted. 2. Sepsis suspect secondary to urinary tract infection, present on admission, suspect secondary to history of neurogenic bladder with self-catheterization. Continue IV antibiotics in the form of Zosyn. Urine culture with evidence of Klebsiella pneumoniae. 3. Acute renal failure secondary to sepsis and non-STEMI and contrast induced. Creatinine 1.4 from 1.57. Nephrology consult in place, recommendations noted. Continue sodium bicarbonate. Continue IV fluids at 50 mL an hour. 4. Chronic kidney failure, stage III secondary to diabetic kidney disease with baseline creatinine in the range of 1.2-1.4. 5. Anemia, normocytic. 6. Leukocytosis, suspect reactive. WBC 12.7. 7. History of coronary artery disease and coronary artery bypass grafting. Continue aspirin and Plavix. 8. History of cerebrovascular accident, transient ischemic attack. Continue aspirin and Plavix. 9. Diabetes mellitus type 2, blood sugars better controlled. Continue Lantus 25 units at bedtime. Continue Accu-Cheks before meals at bedtime with Humalog sliding scale. Continue consistent carbohydrate diet. Consult to masseur/masseuse in place. 10. Hypertension with chronic kidney disease. Continue metoprolol, lisinopril , and Norvasc. 11. Chronic diastolic congestive heart failure. Ejection fraction 50%. Lasix at this time has been discontinued secondary to renal failure. 12. Hyperchloremic metabolic acidosis secondary to IV fluids, improved. 13. Hyperlipidemia. Continue Lipitor. 14. 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 Continue Lyrica. 15. History of myocardial infarction. 16. History of neurogenic bladder and urinary retention with self- catheterization. 17. History of remote alcohol abuse. 18. DVT prophylaxis. Continue subcu heparin. Continue pneumatic compression sleeves. 19. GI prophylaxis. Continue Pepcid. 20. Repeat CBC and BMP in a.m. The above impression and plan have been discussed and directed by Dr. Duff. Beatrice KIMBROUGH acting as scribe for Dr. Duff.
[2016-04-15] MEDS ORDERED: IODIXANOL 320 MG/ML 100 ML INTRAARTER ONE (13:27)
[2016-04-15] MEDS ORDERED: SODIUM CHLORIDE 0.9% 1,000 ML IV SCH (13:30)
--- NOTE | 2016-04-15 14:24 | PCN ---
DATE OF PROCEDURE: April 15, 2016. Performing physician: Caden Garcias M.D., call center agent. PROCEDURE PERFORMED: 1. Successful placement of transvenous temporary pacemaker. 2. An atherectomy of the left main and left circumflex coronary artery. 3. Successful stenting of the distal left main and proximal left circumflex using 2.75 x 28 mm Xience DARVIN with a good angiographic results. 4. Successful stenting of the ostial and proximal left main coronary artery using a 3.0 x 12 mm Xience DARVIN with a good angiographic results. INDICATION: This is a pleasant 80-year-old gentleman who was admitted to the hospital with acute non-ST elevation myocardial infarction and underwent a heart catheterization and was found to have critical disease involving unprotected left circumflex coronary artery. He underwent yesterday an attempted angioplasty of the left circumflex but because of the artery was heavily calcified it was unsuccessful. He was brought today to undergo an atherectomy of the left circumflex and left main. Approach: Right common femoral artery. COMPLICATIONS: None. Level of sedation: Moderate. PROCEDURE DESCRIPTION: After obtaining informed consent, the patient was brought to the cardiac analytical lab analyst. The right common femoral artery was cannulated using micropuncture technique. Micropuncture passed easily. Then I placed 6 [place] sheath in the right common femoral artery. Subsequently, I placed a 6 [place] sheath in the right common femoral vein. After that, I did a place transvenous temporary pacemaker in the right ventricle. At that point, anticoagulation was initiated using Angiomax. After that, I engaged the left main using JL 3.5 guiding catheter. I wired the left circumflex using a Whisper wire. Then I did exchange my Whisper into ViperWire using 1.5 cm over the wire balloon. After that, I did multiple runs of orbital atherectomy of the left main and left circumflex. I did use the CSI device. Subsequently I did balloon angioplasty using 2.5 x 12 mm balloon. After that, I deployed in left circumflex 2.75 x 28 mm Xience DARVIN, where the stent was positioned under fluoroscopy guidance, then it was deployed under 14 atmospheres for 20 seconds. After that, I post dilated that stent using 2.75 mm NC balloon. The following angiogram showed what seems to be haziness, and also tight lesion in the left main, which I decided to stent. So I deployed 3.0 x 12 mm stent, which was inflated under 12 atmospheres for 20 seconds. Then the area of overlap between the 2 stents was dilated using stent balloon. The procedure was completed without any complication. POSTPROCEDURE MANAGEMENT: 1. Dual antiplatelet therapy. 2. Risk factor modifications. 3. Follow up with the patient.
[2016-04-15 17:13] LABS: Glucose,Whole Blood 210 mg/dL (75-99)
[2016-04-15 20:35] LABS: Glucose,Whole Blood 288 mg/dL (75-99)
[2016-04-15] MEDS: INSULIN GLARGINE 100 UNIT/ML 10 ML VIAL SQ SCH (21:24)
[2016-04-16] MEDS: PIPERACILLIN-TAZOBACTAM 3.375 GM in DEXTROSE/WATER 1 50ML.BAG IVPB SCH ×3 (02:12→17:31)
[2016-04-16 06:59] LABS: Glucose,Whole Blood 197 mg/dL (75-99)
[2016-04-16] MEDS: INSULIN LISPRO (humaLOG) 300 UNIT/3 ML VIAL SQ SCH ×7 (07:07→22:39)
[2016-04-16] MEDS: LISINOPRIL 5 MG TAB PO SCH (08:39)
[2016-04-16] MEDS: predniSONE 10 MG TAB PO SCH ×2 (08:39→22:41)
[2016-04-16] MEDS: PREGABALIN 25 MG CAP PO SCH (08:39)
[2016-04-16] MEDS: SODIUM BICARBONATE TAB 650 MG TAB PO SCH ×2 (08:39→22:39)
[2016-04-16] MEDS: METOPROLOL TARTRATE 50 MG TAB PO SCH (08:39)
[2016-04-16] MEDS: amLODIPine 10 MG TAB PO SCH (08:41)
[2016-04-16] MEDS: CLOPIDOGREL 75 MG TAB PO SCH (08:41)
[2016-04-16] MEDS: ASPIRIN 81 MG CHEW PO SCH (08:41)
[2016-04-16] MEDS: ATORVASTATIN 40 MG TAB PO SCH (08:41)
[2016-04-16] MEDS: FAMOTIDINE 20 MG TAB PO SCH (08:42)
[2016-04-16] MEDS: ISOSORBIDE MONONITRATE ER 30 MG TAB.ER.24H PO SCH (08:42)
[2016-04-16] MEDS: HEPARIN SODIUM,PORCINE 5,000 UNIT/ML 1 ML VIAL SQ SCH ×2 (08:42→22:41)
[2016-04-16] MEDS: diphenhydrAMINE 25 MG CAP PO SCH ×2 (08:45→22:41)
[2016-04-16 08:50] LABS: Anion Gap 15 mmol/L; Blood Urea Nitrogen 26 mg/dL (9-20); Calcium 8.9 mg/dL (8.4-10.2); Carbon Dioxide 23 mmol/L (22-30); Chloride 109 mmol/L (98-107); Glucose 165 mg/dL (74-99); Non-African American GFR(MDRD) 52 (>60 ml/min/1.73 sqM); Potassium 3.9 mmol/L (3.5-5.1); Sodium 147 mmol/L (137-145)
[2016-04-16 08:52] LABS: Basophils % (A) 0 %; CH 26.7; CHCM 31.7; Eosinophils % (A) 0 %; HCT 36.3 % (39.0-53.0); HDW 2.82; HGB 11.5 gm/dL (13.0-17.5); Hypochromasia Slight; Luc # (Auto) 0.13; Luc % (Auto) 1; Lymphocytes % (A) 15 %; MCH 26.8 pg (25.0-35.0); MCHC 31.6 g/dL (31.0-37.0); MCV 84.8 fL (80.0-100.0); Mean Platelet Volume 7.1; Monocytes # (A) 0.7 k/uL (0-1.0); Monocytes % (A) 5 %; Neutrophils # (A) 10.5 k/uL (1.3-7.7); Neutrophils % (A) 79 %; RBC 4.28 m/uL (4.30-5.90); RDW 15.7 % (11.5-15.5); WBC 13.3 k/uL (3.8-10.6); WBC (Perox) 14.07
--- NOTE | 2016-04-16 09:41 | P.PN ---
Subjective Patient is seen in follow-up for acute kidney injury on chronic kidney disease. 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 Renal function is improved today with creatinine at 1.32. He underwent a cardiac catheterization in April 10 which revealed diffuse coronary artery disease. He underwent another cardiac catheterization on April 14 but the stent could not be placed due to calcified vessel. He underwent placement of a transvenous temporary pacemaker as well as atherectomy of the left main and left circumflex coronary artery along with stenting of the distal left main and proximal left circumflex artery on April 15. Currently resting in bed. Denies any active chest pain or shortness of breath. He is nonoliguric. Vital signs are stable. General: The patient appeared well nourished and normally developed. HEENT: Head exam is unremarkable. Neck is without jugular venous distension. LUNGS: Lungs are clear to auscultation and percussion. Breath sounds decreased. HEART: Rate and Rhythm are regular. First and second heart sounds normal. No murmurs, rubs or gallops. ABDOMEN: Abdominal exam reveals normal bowel sounds. Non-tender and non- distended. No evidence of peritonitis. EXTREMITITES: No clubbing, cyanosis, or edema. Objective - Vital Signs Vital signs: Vital Signs Temp 97.1 F L 04/16/16 08:00 Pulse 76 04/16/16 08:00 Resp 14 04/16/16 04:00 BP 156/74 04/16/16 08:00 Pulse Ox 95 04/16/16 08:00 Intake & Output 04/15/16 04/16/16 04/16/16 18:59 06:59 18:59 Intake Total 410 50 Balance 410 50 Weight 66.3 kg Intake: IV 188 50 Piperacillin-Tazobactam 3 50 .375 gm In Dextrose/Water 1 50ml.bag @ 12.5 mls/hr IVPB Q8HR [facility] Rx#: [id number] Oral 222 Other: Voiding Method Indwelling Catheter Indwelling Catheter - Labs CBC & Chem 7: 04/16/16 08:04 04/16/16 08:04 Labs: Abnormal Lab Results - Last 24 Hours (Table) 04/15/16 04/15/16 04/16/16 Range/Units 17:05 20:29 06:52 WBC (3.8-10.6) k/uL RBC (4.30-5.90) m/uL Hgb (13.0-17.5) gm/dL Hct (39.0-53.0) % RDW (11.5-15.5) % Neutrophils # (1.3-7.7) k/uL Sodium (137-145) mmol/L Chloride (98-107) mmol/L BUN (9-20) mg/dL Creatinine (0.66-1.25) mg/dL Glucose (74-99) mg/dL POC Glucose (mg/dL) 210 H 288 H 197 H (75-99) mg/dL 04/16/16 04/16/16 Range/Units 08:04 08:04 WBC 13.3 H (3.8-10.6) k/uL RBC 4.28 L (4.30-5.90) m/uL Hgb 11.5 L (13.0-17.5) gm/dL Hct 36.3 L (39.0-53.0) % RDW 15.7 H (11.5-15.5) % Neutrophils # 10.5 H (1.3-7.7) k/uL Sodium 147 H (137-145) mmol/L Chloride 109 H (98-107) mmol/L BUN 26 H (9-20) mg/dL Creatinine 1.32 H (0.66-1.25) mg/dL Glucose 165 H (74-99) mg/dL POC Glucose (mg/dL) (75-99) mg/dL Assessment and Plan Plan: Assessment: #1. Nonoliguric acute kidney injury mostly prerenal in nature secondary to sepsis and NSTEMI. Also component of contrast-induced nephropathy (cath April 10 and April 14; left main and circumflex stents placed on April 15) . Renal function stable. #2. Chronic kidney disease stage III secondary to diabetic kidney disease with baseline creatinine in the range of 1.2-1.4. #3. Chronic urinary retention. Patient performs self catheterizations. Currently has a Alves catheter. #4. Coronary artery disease status post cardiac catheterization on April 10 as well as April 14. Stents placed on April 15. #5. Urinary tract infection. Urine culture positive for Klebsiella. #6. Hypertension with chronic kidney disease. #7. Diastolic CHF. #8. Hyperchloremic metabolic acidosis secondary to IV fluids. Improved. #9. Hypernatremia. Plan: I will change IV fluids to half-normal saline to be run at 75 mL an hour. Avoid nephrotoxic agents and hypotensive episodes. Hold diuretics. S/p mucomyst. Continue to monitor renal function and urine output. Maintain oral sodium bicarbonate 650 mg twice daily. Continue to monitor renal function and urine output closely.
[2016-04-16 12:39] LABS: Glucose,Whole Blood 87 mg/dL (75-99)
[2016-04-16] MEDS: SODIUM CHLORIDE 0.45% 1,000 ML IV SCH (12:52)
[2016-04-16] MEDS ORDERED: LISINOPRIL 5 MG TAB PO STA (14:22)
--- NOTE | 2016-04-16 14:22 | P.PN ---
Subjective This is a pleasant 80-year-old male patient who was admitted to the hospital with acute non-ST elevation myocardial infarction and underwent heart catheterization and was found to have critical disease involving left circumflex. On he underwent an attempted angioplasty of the left circumflex but because the artery was heavily calcified it was unsuccessful. Yesterday he underwent repeat catheterization with arthrectomy of the left main and left circumflex coronary arteries and successful stenting of the distal left main and proximal left circumflex and successful stenting of the ostial and proximal left main. Upon examination today, patient is resting comfortably in bed. He denies complaints of chest discomfort, shortness of breath, palpitations, dizziness or edema. Objective - Vital Signs Vital signs: Vital Signs Temp 97.1 F L 04/16/16 08:00 Pulse 76 04/16/16 08:00 Resp 14 04/16/16 04:00 BP 156/74 04/16/16 08:00 Pulse Ox 95 04/16/16 08:00 Intake & Output 04/15/16 04/16/16 04/16/16 18:59 06:59 18:59 Intake Total 410 50 Balance 410 50 Weight 66.3 kg Intake: IV 188 50 Piperacillin-Tazobactam 3 50 .375 gm In Dextrose/Water 1 50ml.bag @ 12.5 mls/hr IVPB Q8HR [facility] Rx#: [id number] Oral 222 Other: Voiding Method Indwelling Catheter Indwelling Catheter Indwelling Catheter - Exam PHYSICAL EXAMINATION: HEENT: Head is atraumatic, normocephalic. Pupils equal, round. Neck is supple. There is no elevated jugular venous pressure. HEART EXAMINATION: Heart sounds regular, S1 and S2 normal. No murmur or gallop heard. CHEST EXAMINATION: Lungs are clear to auscultation and precussion. No chest wall tenderness is noted on palpation or with deep breathing. ABDOMEN: Soft, nontender. Bowel sounds are heard. No organomegaly noted. EXTREMITIES: 2+ peripheral pulses with no evidence of peripheral edema and no calf tenderness noted. NEUROLOGIC patient is awake, alert and oriented x3. . - Labs CBC & Chem 7: 04/16/16 08:04 04/16/16 08:04 Labs: Abnormal Lab Results - Last 24 Hours (Table) 04/15/16 04/15/16 04/16/16 Range/Units 17:05 20:29 06:52 WBC (3.8-10.6) k/uL RBC (4.30-5.90) m/uL Hgb (13.0-17.5) gm/dL Hct (39.0-53.0) % RDW (11.5-15.5) % Neutrophils # (1.3-7.7) k/uL Sodium (137-145) mmol/L Chloride (98-107) mmol/L BUN (9-20) mg/dL Creatinine (0.66-1.25) mg/dL Glucose (74-99) mg/dL POC Glucose (mg/dL) 210 H 288 H 197 H (75-99) mg/dL 04/16/16 04/16/16 Range/Units 08:04 08:04 WBC 13.3 H (3.8-10.6) k/uL RBC 4.28 L (4.30-5.90) m/uL Hgb 11.5 L (13.0-17.5) gm/dL Hct 36.3 L (39.0-53.0) % RDW 15.7 H (11.5-15.5) % Neutrophils # 10.5 H (1.3-7.7) k/uL Sodium 147 H (137-145) mmol/L Chloride 109 H (98-107) mmol/L BUN 26 H (9-20) mg/dL Creatinine 1.32 H (0.66-1.25) mg/dL Glucose 165 H (74-99) mg/dL POC Glucose (mg/dL) (75-99) mg/dL Assessment and Plan Plan: Assessment and plan #1 acute non-ST elevation myocardial infarction, status post arthrectomy and stenting of the left main and left circumflex #2 urinary tract infection #3 diabetes #4 hypertension Dredge Operator perspective, will increase lisinopril to 10 mg daily, stop metoprolol and start the patient on carvedilol 6.25 mg by mouth twice a day. Despite patient to be discharged within the next 24 hours. Further recommendations to follow. WELL DRILL OPERATOR note has been reviewed, I agree with a documented findings and plan of care. Patient was seen and examined.
[2016-04-16 17:20] LABS: Glucose,Whole Blood 182 mg/dL (75-99)
[2016-04-16] MEDS: CARVEDILOL 6.25 MG TAB PO SCH (17:31)
--- NOTE | 2016-04-16 20:13 | PN ---
DATE OF SERVICE: 04/16/2016 I am covering for Dr. Duff. This 80-year-old gentleman was admitted with urinary tract infection and sepsis, ST segment elevation myocardial infarction, had cardiac catheterization. On the second attempt the patient underwent multiple stenting procedures, including atherectomy of the left main, left circumflex coronary artery and stenting of the distal left main and proximal left circumflex and as well as stenting of the ostium and proximal left main coronary artery also. The patient also underwent a temporary transvenous pacemaker during the procedure. Patient has been closely monitored at this time. As far as the UTIs concerned, the patient has grown Klebsiella pneumonia, which is poly sensitive except to ampicillin and nitrofurantoin. The patient also requiring Alves catheter. Patient does self-catheterization at home. The patient was started on Zosyn. PAST MEDICAL HISTORY: Reviewed. REVIEW OF SYSTEMS: CARDIOVASCULAR: As mentioned earlier. RESPIRATORY: As mentioned earlier. GI: As mentioned earlier. : No dysuria. NERVOUS SYSTEM: No numbness, weakness. Current medications are reviewed and include: 1. Tylenol 650 q.6 p.r.n. 2. [place] 5 mg q.6 p.r.n. 3. Maalox 30 mL q.4 p.r.n. 4. Xanax 0.5 q.6. 5. Norvasc 10 mg. 6. Aspirin 81 mg. 7. Lipitor. 8. Atropine. 9. Coreg. 10. Plavix. 11. Benadryl. 12. Colace. 13. Pepcid. 14. Heparin. 15. Dilaudid. 16. Lantus. 17. Humalog to scale. 18. Imdur. 19. Zestril. 20. Narcan. 21. Nitrostat. 22. Zofran. 23. Zosyn IV. 24. Ambien. PHYSICAL EXAMINATION: The patient is alert and oriented x3. Pulse is 76, blood pressure 150/74, respirations 20, temperature 97.1, pulse ox 94% on room air. HEENT: Conjunctivae normal. NECK: No jugular venous distention. CARDIOVASCULAR: S1 and S2, muffled. RESPIRATORY: Breath sounds diminished at the bases. A few scattered rhonchi and crackles. ABDOMEN: Soft, nontender. No mass palpable. LEGS: No edema, no swelling. NERVOUS SYSTEM: Higher function as mentioned. Moves all four limbs. No focal motor deficits. LYMPHATIC: No lymphadenopathy in the neck, axillae or groin. SKIN: No ulcer, rash or bleeding. LABS: WBC 13, hemoglobin 11.4. Sodium 147, creatinine is 1.32. ASSESSMENT: 1. Acute non-ST segment elevation myocardial infarction, status post cardiac catheterization and stenting of the left distal main and proximal left circumflex and as well as ostial and proximal left main coronary artery. 2. Status post atherectomy. 3. Urinary tract infection with sepsis, possible Klebsiella pneumonia, present on admission. 4. Increased creatinine, possibly acute on chronic kidney failure stage III. 5. Anemia, normocytic. 6. Increased WBC. 7. History of coronary artery disease, coronary artery bypass grafting. 8. History of cerebrovascular accident, transient ischemic attack. 9. Diabetes mellitus type 2. 10. Hypertension. 11. History of myocardial infarction. 12. History of urinary retention, self-catheterization. 13. Remote history nicotine dependence. 14. History of remote history of EtOH. 15. FULL CODE. 16. Mild hyponatremia. RECOMMENDATIONS AND DISCUSSION: In this 80-year-old gentleman who presented. Continue the current medications, continue symptomatic treatment. Continue dual antiplatelet treatment. Otherwise, at this time I would also recommend repeat labs. Increase ambulation. Closely follow with cardiology. Dual antiplatelet treatment. Continue with Lipitor. Guarded prognosis. Further recommendations to follow.
[2016-04-16 22:17] LABS: Glucose,Whole Blood 225 mg/dL (75-99)
[2016-04-16] MEDS: INSULIN GLARGINE 100 UNIT/ML 10 ML VIAL SQ SCH (22:40)
[2016-04-17 00:12] VITALS: RESP 16
[2016-04-17] MEDS: PIPERACILLIN-TAZOBACTAM 3.375 GM in DEXTROSE/WATER 1 50ML.BAG IVPB SCH ×2 (01:28→10:30)
[2016-04-17] MEDS: SODIUM CHLORIDE 0.45% 1,000 ML IV SCH ×2 (01:32→12:35)
[2016-04-17 06:22] LABS: Glucose,Whole Blood 107 mg/dL (75-99)
[2016-04-17 06:54] LABS: Anion Gap 10 mmol/L; Blood Urea Nitrogen 24 mg/dL (9-20); Calcium 8.6 mg/dL (8.4-10.2); Carbon Dioxide 26 mmol/L (22-30); Chloride 109 mmol/L (98-107); Glucose 95 mg/dL (74-99); Non-African American GFR(MDRD) 53 (>60 ml/min/1.73 sqM); Potassium 3.2 mmol/L (3.5-5.1); Sodium 145 mmol/L (137-145)
[2016-04-17] MEDS: INSULIN LISPRO (humaLOG) 300 UNIT/3 ML VIAL SQ SCH ×4 (07:06→12:37)
[2016-04-17] MEDS: CARVEDILOL 6.25 MG TAB PO SCH (07:07)
[2016-04-17] MEDS ORDERED: POTASSIUM CHLORIDE ER 20 MEQ TAB.ER PO STA (08:37)
[2016-04-17] MEDS ORDERED: LISINOPRIL 10 MG TAB PO SCH (09:00)
--- NOTE | 2016-04-17 09:10 | P.PN ---
Subjective Patient is seen in follow-up for acute kidney injury on chronic kidney disease. 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 Renal function is improved today with creatinine at 1.32. He underwent a cardiac catheterization in April 10 which revealed diffuse coronary artery disease. He underwent another cardiac catheterization on April 14 but the stent could not be placed due to calcified vessel. He underwent placement of a transvenous temporary pacemaker as well as atherectomy of the left main and left circumflex coronary artery along with stenting of the distal left main and proximal left circumflex artery on April 15. Currently resting in bed. Denies any active chest pain or shortness of breath. He is nonoliguric. Vital signs are stable. General: The patient appeared well nourished and normally developed. HEENT: Head exam is unremarkable. Neck is without jugular venous distension. LUNGS: Lungs are clear to auscultation and percussion. Breath sounds decreased. HEART: Rate and Rhythm are regular. First and second heart sounds normal. No murmurs, rubs or gallops. ABDOMEN: Abdominal exam reveals normal bowel sounds. Non-tender and non- distended. No evidence of peritonitis. EXTREMITITES: No clubbing, cyanosis, or edema. Objective - Vital Signs Vital signs: Vital Signs Temp 97.8 F 04/17/16 04:00 Pulse 79 04/17/16 04:00 Resp 16 04/17/16 04:00 BP 161/80 04/17/16 04:00 Pulse Ox 95 04/17/16 04:00 Intake & Output 04/16/16 04/17/16 04/17/16 18:59 06:59 18:59 Intake Total 50 180 Output Total 500 Balance -450 180 Weight 65.8 kg Intake: IV 50 Piperacillin-Tazobactam 3 50 .375 gm In Dextrose/Water 1 50ml.bag @ 12.5 mls/hr IVPB Q8HR [facility] Rx#: [id number] Oral 180 Output: Urine 500 Other: Voiding Method Indwelling Catheter Self-Catheterization - Labs CBC & Chem 7: 04/16/16 08:04 04/17/16 06:19 Labs: Abnormal Lab Results - Last 24 Hours (Table) 04/16/16 04/16/16 04/17/16 Range/Units 17:11 22:14 05:58 Potassium (3.5-5.1) mmol/L Chloride (98-107) mmol/L BUN (9-20) mg/dL Creatinine (0.66-1.25) mg/dL POC Glucose (mg/dL) 182 H 225 H 107 H (75-99) mg/dL 04/17/16 Range/Units 06:19 Potassium 3.2 L (3.5-5.1) mmol/L Chloride 109 H (98-107) mmol/L BUN 24 H (9-20) mg/dL Creatinine 1.30 H (0.66-1.25) mg/dL POC Glucose (mg/dL) (75-99) mg/dL Assessment and Plan Plan: Assessment: #1. Nonoliguric acute kidney injury mostly prerenal in nature secondary to sepsis and NSTEMI. Also component of contrast-induced nephropathy (cath April 10 and April 14; left main and circumflex stents placed on April 15) . Renal function stable. #2. Chronic kidney disease stage III secondary to diabetic kidney disease with baseline creatinine in the range of 1.2-1.4. #3. Chronic urinary retention. Patient performs self catheterizations. Currently has a Alves catheter. #4. Coronary artery disease status post cardiac catheterization on April 10 as well as April 14. Stents placed on April 15. #5. Urinary tract infection. Urine culture positive for Klebsiella. #6. Hypertension with chronic kidney disease. #7. Diastolic CHF. #8. Hyperchloremic metabolic acidosis secondary to IV fluids. Improved. #9. Hypernatremia. Improving. Plan: Continue half-normal saline to be run at 75 mL an hour. Avoid nephrotoxic agents and hypotensive episodes. Hold diuretics. S/p mucomyst. Continue to monitor renal function and urine output. Maintain oral sodium bicarbonate 650 mg twice daily. Continue to monitor renal function and urine output closely. Stable to be discharged home from nephrology standpoint. Repeat basic metabolic panel in 1 week and to follow-up as an outpatient in the next 1-2 weeks.
[2016-04-17] MEDS: amLODIPine 10 MG TAB PO SCH (09:23)
[2016-04-17] MEDS: CLOPIDOGREL 75 MG TAB PO SCH (09:23)
[2016-04-17] MEDS: ASPIRIN 81 MG CHEW PO SCH (09:23)
[2016-04-17] MEDS: HEPARIN SODIUM,PORCINE 5,000 UNIT/ML 1 ML VIAL SQ SCH (09:23)
[2016-04-17] MEDS: ATORVASTATIN 40 MG TAB PO SCH (09:23)
[2016-04-17] MEDS: FAMOTIDINE 20 MG TAB PO SCH (09:24)
[2016-04-17] MEDS: predniSONE 10 MG TAB PO SCH (09:24)
[2016-04-17] MEDS: ISOSORBIDE MONONITRATE ER 30 MG TAB.ER.24H PO SCH (09:24)
[2016-04-17] MEDS: SODIUM BICARBONATE TAB 650 MG TAB PO SCH (09:24)
[2016-04-17] MEDS: diphenhydrAMINE 25 MG CAP PO SCH (09:24)
[2016-04-17] MEDS: PREGABALIN 25 MG CAP PO SCH (09:24)
[2016-04-17 09:29] VITALS: TEMP 96.4
[2016-04-17] MEDS ORDERED: CARVEDILOL 6.25 MG TAB PO ONE (11:00)
[2016-04-17 12:07] LABS: Glucose,Whole Blood 116 mg/dL (75-99)
--- NOTE | 2016-04-17 13:55 | PN ---
Mr. Fox is doing well. He denies any chest discomfort, dizziness, lightheadedness. He is afebrile, 96.4 degrees Fahrenheit. His pulse rate is in the 70s. His blood pressure is still elevated and I increased the dose of carvedilol as well as Lisinopril. Head and neck examination is normal. Heart sounds are normal. Lungs are clear to auscultation. He is very anxious and wants to leave. IMPRESSION: 1. Non- ST segment elevation myocardial infarction, cardiac catheterization and percutaneous intervention. 2. Diabetes. 3. Uncontrolled hypertension. SUGGEST: Continue aspirin and atorvastatin. Increase carvedilol to 12.5 mg twice daily. Continue Plavix. Continue isosorbide and increase Lisinopril to 10 mg daily. Follow up with primary check scaler next week and further maximization of antihypertensive therapy.
[2016-04-17 14:22] VITALS: BP 181/81; PULSE 81
[2016-04-17] MEDS ORDERED: CARVEDILOL 12.5 MG TAB PO SCH (17:30)
--- NOTE | 2016-04-18 14:57 | DS ---
DATE OF ADMISSION: 04/09/2016 DATE OF DISCHARGE: 04/17/2016 DATE OF SERVICE: 04/17/2016 FINAL DIAGNOSES: 1. Acute non-ST elevation myocardial infarction as well as cardiac catheterization and stenting of the left distal main and as proximal left circumflex as well as ostial and proximal left main coronary artery. 2. Status post atherectomy. 3. Urinary tract infection with sepsis, possibly with Klebsiella pneumonia, present on admission. 4. Increased creatinine, possible acute on chronic baseline kidney failure with chronic kidney disease stage III. 5. Anemia, normocytic anemia of chronic disease. 6. Increased WBC, possibly secondary to sepsis. 7. History of coronary artery disease, coronary artery bypass grafting. 8. History of cerebrovascular accident and transient ischemic attack. 9. Diabetes mellitus type 2. 10. Hypertension. 11. History of myocardial infarction. 12. History of urinary retention and self-catheterization. 13. Remote history of nicotine dependence. 14. Mild hyponatremia, possibly hypovolemic. 15. Remote history of Ethyl alcohol. 16. FULL CODE. DISCHARGE DISPOSITION: The patient will be discharged in a stable condition with guarded prognosis. Total time taken of 35 minutes. Discharged cleared by Cardiology. HISTORY OF PRESENT ILLNESS: This 80-year-old gentleman with a past medical history of multiple medical problems followed by Dr. Duff in the outpatient setting, admitted with features of known ST-elevated myocardial infarction. Patient had cardiac catheterization in two sessions. The patient had as detailed above. The patient improved significantly. Patient also with CHF features treated also. Overall the patient made significant improvement. Cardiology saw the patient. Dr. Laughlin also saw the patient in consultation. Currently, on exam vitals are stable. CARDIOVASCULAR SYSTEM: S1, S2, muffled. ABDOMEN: Soft. NERVOUS SYSTEM: No focal deficits. The patient will be discharged in a stable condition: 1. Diet is cardiac. 2. Activity limited until followup. 3. Follow up with Dr. Garcias in 1 week. 4. Follow up with Dr. Fred Duff in 2 to 3 days. 5. Followup labs CBC, BMP with Dr. Duff. Medications are: 1. Xanax 0.25 t.i.d. p.r.n. 2. Tylenol 650 q.6 p.r.n. 3. Augmentin 500 mg one p.o. b.i.d. for 3 more days. 4. Ecotrin 81 mg p.o. daily. 5. Lipitor 40 mg p.o. daily. 6. Coreg 12.5 mg b.i.d. 7. Plavix 75 mg p.o. daily. 8. Lasix 40 mg p.o. daily. 9. Lantus 25 units subQ q.h.s. 10. NPH a.c. t.i.d. as before. 11. Imdur ER 30 mg p.o. daily. 12. Zestril 10 mg p.o. daily. 13. Nitrostat 0.4 sublingual p.r.n. 14. Lyrica 25 mg p.o. daily. 15. Norvasc 10 mg daily. 16. Prednisone 10 mg p.o. b.i.d. for 10 days to be continued in the outpatient setting.
== END 2016-04-17 15:38 | disposition home or self-care (01) | DRG 246 ==
LOC: EC 21:33 → 6SEL 23:52
PROVIDERS: ADMIT Family Medicine; ATTEND Family Medicine
PROC: 4A023N7 Measurement of Cardiac Sampling and Pressure, Left Heart, Percutaneous Approach (ICD-10-PCS; 2016-04-10)
PROC: B212YZZ Fluoroscopy of Single Coronary Artery Bypass Graft using Other Contrast (ICD-10-PCS; 2016-04-10)
PROC: B218YZZ Fluoroscopy of Left Internal Mammary Bypass Graft using Other Contrast (ICD-10-PCS; 2016-04-10)
PROC: B211YZZ Fluoroscopy of Multiple Coronary Arteries using Other Contrast (ICD-10-PCS; 2016-04-10)
PROC: 02703ZZ Dilation of Coronary Artery, One Artery, Percutaneous Approach (ICD-10-PCS; 2016-04-14)
PROC: 027135Z Dilation of Coronary Artery, Two Arteries with Two Drug-eluting Intraluminal Devices, Percutaneous Approach (ICD-10-PCS; principal; 2016-04-15 12:00)
PROC: X2C1361 Extirpation of Matter from Coronary Artery, Two Arteries using Orbital Atherectomy Technology, Percutaneous Approach, New Technology Group 1 (ICD-10-PCS; 2016-04-15 12:00)
DX: I21.4 Non-ST elevation (NSTEMI) myocardial infarction (principal); A41.9 Sepsis, unspecified organism; R65.20 Severe sepsis without septic shock; N17.9 Acute kidney failure, unspecified; E87.0 Hyperosmolality and hypernatremia; E87.2 Acidosis; I50.32 Chronic diastolic (congestive) heart failure; I25.810 Atherosclerosis of coronary artery bypass graft(s) without angina pectoris; I13.0 Hypertensive heart and chronic kidney disease with heart failure and stage 1 through stage 4 chronic kidney disease, or unspecified chronic kidney disease; I69.954 Hemiplegia and hemiparesis following unspecified cerebrovascular disease affecting left non-dominant side; T83.511A Infection and inflammatory reaction due to indwelling urethral catheter, initial encounter; N39.0 Urinary tract infection, site not specified; E11.22 Type 2 diabetes mellitus with diabetic chronic kidney disease; N18.3 Chronic kidney disease, stage 3 (moderate); E11.40 Type 2 diabetes mellitus with diabetic neuropathy, unspecified; D63.8 Anemia in other chronic diseases classified elsewhere; B96.1 Klebsiella pneumoniae [K. pneumoniae] as the cause of diseases classified elsewhere; E78.5 Hyperlipidemia, unspecified; I25.10 Atherosclerotic heart disease of native coronary artery without angina pectoris; I25.2 Old myocardial infarction; N14.1 Nephropathy induced by other drugs, medicaments and biological substances; N31.9 Neuromuscular dysfunction of bladder, unspecified; T50.8X5A Adverse effect of diagnostic agents, initial encounter; R33.8 Other retention of urine; E11.51 Type 2 diabetes mellitus with diabetic peripheral angiopathy without gangrene; I69.998 Other sequelae following unspecified cerebrovascular disease; Z79.02 Long term (current) use of antithrombotics/antiplatelets; Z79.4 Long term (current) use of insulin; Z79.82 Long term (current) use of aspirin; Z79.899 Other long term (current) drug therapy; Z87.891 Personal history of nicotine dependence; Z95.1 Presence of aortocoronary bypass graft; Z91.041 Radiographic dye allergy status
CPT/HCPCS: 36415; 51702; 71010; 80048; 80053; 80202; 81001; 82533; 82550; 82553; 83036; 83605; 84484; 85025; 85347; 85610; 85730; 87040; 87077; 87086; 87186; 92920; 93005; 93455; 96365; 96366; 96367; 96375; 96376; 99291

== ENCOUNTER 2016-07-19 15:59 | Emergency (ER) | payer MEDICARE, BC ==
[2016-07-19] MEDS ORDERED: HYDROcodone/APAP 5-325MG 1 EACH TAB PO STA (16:14)
--- NOTE | 2016-07-19 16:19 | ED ---
Extremity Problem HPI - General Chief complaint: Extremity Problem,Nontraumatic Stated complaint: Left Leg Pain Time Seen by Provider: 07/19/16 16:10 Source: patient, EMS, RN notes reviewed Mode of arrival: EMS Limitations: no limitations - History of Present Illness Initial comments: 80-year-old male presents emergency Department chief complaint left leg pain. Patient states she's had ongoing left leg pain but was worse today. Patient states that he took a nap. When had the increased pain primarily in his foot states it radiates up and also leg. Patient states that he has diabetic neuropathy. Patient did not take anything for the pain. He states he cannot tolerate this pain and so he called EMS. Patient denies any trauma. Patient denies any changes discoloration patient states that he has NO KNOWN DRUG ALLERGIES. Patient denies any back pain. Patient denies saddle anesthesias or urinary incontinence or retention - Related Data Home Medications Medication Instructions Recorded Confirmed Furosemide [Lasix] 40 mg PO DAILY 04/10/16 07/19/16 Previous Rx's Medication Instructions Recorded Insulin NPH Hum/Reg Insulin Hm See Protocol SQ AC-TID #1 vial 07/21/15 [NovoLIN 70-30 100 UNIT/ML VIAL] Nitroglycerin Sl Tabs [Nitrostat] 0.4 mg SUBLINGUAL Q5M PRN #25 tab 07/21/15 Atorvastatin [Lipitor] 40 mg PO DAILY #30 tab 11/20/15 Clopidogrel [Plavix] 75 mg PO DAILY #30 tab 11/20/15 Isosorbide Mononitrate ER [Imdur] 30 mg PO DAILY #30 tab.er.24h 11/20/15 Carvedilol [Coreg*] 12.5 mg PO BID-W/MEALS #60 tab 04/17/16 Lisinopril [Zestril] 10 mg PO DAILY #30 tab 04/17/16 amLODIPine [Norvasc] 10 mg PO DAILY #30 tab 04/17/16 Allergies Allergy/AdvReac Type Severity Reaction Status Date / Time Iodinated Contrast Media - AdvReac Rash/Hives Verified 07/19/16 16:41 Oral and Review of Systems ROS Statement: Those systems with pertinent positive or pertinent negative responses have been documented in the HPI. ROS Other: All systems not noted in ROS Statement are negative. Past Medical History Past Medical History: Coronary Artery Disease (CAD), Chest Pain / Angina, CVA/ TIA, Diabetes Mellitus, Hypertension, Myocardial Infarction ([place]), Vascular Disorder Additional Past Medical History / Comment(s): URINARY RETENTION from effects from stroke REQUIRING SELF CATH,NEUROPATHY, PER OLD HX: PVD, X3 [place] [id number]- 2007, NEUROPATHY, CVA/TIA- left arm weakness Last Myocardial Infarction Date:: 2007 History of Any Multi-Drug Resistant Organisms: None Reported Past Surgical History: Coronary Bypass/CABG, Heart Catheterization Additional Past Surgical History / Comment(s): 5 VESSLEL BYPASS 2006, stent RT leg , nimisha CATARACT SX-LENS IMPLANT, angioplasty june 2016 Past Anesthesia/Blood Transfusion Reactions: No Reported Reaction Date of Last Stent Placement:: 2011 Past Psychological History: No Psychological Hx Reported Smoking Status: Former smoker Past Alcohol Use History: Rare Additional Past Alcohol Use History / Comment(s): smoked for 23 yrs- quit smoking 2007- smoked 2 PPD. Heavy etoh in the past - not current. Quit 40 years ago. Past Drug Use History: None Reported - Past Family History Brother(s) Family Medical History: Myocardial Infarction ([place]) Mother Family Medical History: Diabetes Mellitus Additional Family Medical History / Comment(s): AT AGE 93 Father Family Medical History: Myocardial Infarction ([place]) Additional Family Medical History / Comment(s): AT AGE 83 FROM [place]. General Exam Limitations: no limitations General appearance: alert, in no apparent distress Respiratory exam: Present: normal lung sounds bilaterally. Absent: respiratory distress, wheezes, rales, rhonchi, stridor Cardiovascular Exam: Present: regular rate, normal rhythm, normal heart sounds. Absent: systolic murmur, diastolic murmur, rubs, gallop, clicks Extremities exam: Present: other (Left leg there is tenderness noted to the foot no obvious deformity no erythema pedal pulses equal bilaterally +2 years old scars noted to left lower leg there is no calf tenderness patient has full range of motion all joints and full strength.) Back exam: Present: full ROM. Absent: tenderness, paraspinal tenderness, vertebral tenderness Neurological exam: Present: alert, oriented X3, CN II-XII intact, reflexes normal. Absent: motor sensory deficit Course Vital Signs 07/19/16 07/19/16 16:06 16:22 Temperature 98 F 98.2 F Pulse Rate 79 76 Respiratory 18 16 Rate Blood Pressure 142/63 116/54 O2 Sat by Pulse 91 L 98 Oximetry Medical Decision Making - Medical Decision Making 80-year-old male presented for left leg pain. Patient states pain is improved after [place]. Patient states that he has had pain like this in the past. Patient ultrasound, x-ray within normal is. Patient has pedal pulses palpable and March on his foot. Patient's pulses are palpable to me and nursing staff. Patient will be discharged at this time with follow-up return parameters were discussed. Family In the room agrees to plan. Disposition Clinical Impression: Pain in left leg, Neuropathy Disposition: HOME SELF-CARE Condition: Stable Instructions: Leg Pain (ED) Additional Instructions: Please return to the Emergency Department if symptoms worsen or any other concerns. Time of Disposition: 17:14
[2016-07-19 16:23] VITALS: TEMP 98.2
--- NOTE | 2016-07-19 16:35 | XR ---
Left foot HISTORY: Difficulty walking, diabetic. Pain 3 views of the left foot correlated to prior exam one February 2018 No significant interval change is evident. Degenerative changes present at the first metatarsophalang eal joint. Alignment and bone mineralization, joint spaces are stable. No evident periostitis to sugg est osteomyelitis. Enthesophyte present at the insertion of the Achilles tendon. IMPRESSION: Stable exam. Additional findings above.
--- NOTE | 2016-07-19 17:18 | US ---
EXAMINATION TYPE: US venous doppler duplex LE LT DATE OF EXAM: 07/19/2016 4:15 PM COMPARISON: Left lower extremity venous ultrasound June 18, 2013 CLINICAL HISTORY: Pain. Left leg pain, no swelling, no h/o dvt SIDE PERFORMED: Left TECHNIQUE: The lower extremity deep venous system is examined utilizing real time linear array sonog janie with graded compression, doppler sonography and color-flow sonography. VESSELS IMAGED: External Iliac Vein (EIV) Common Femoral Vein Deep Femoral Vein Greater Saphenous Vein * Femoral Vein Popliteal Vein Small Saphenous Vein * Proximal Calf Veins (* superficial vessels) Left Leg: Appears negative for DVT Grayscale, color doppler, spectral doppler imaging performed of the deep veins of the lower extremiti es. There is normal flow, compressibility, vascular waveforms bilaterally IMPRESSION: No ultrasound evidence for acute DVT in the left lower extremity on today's study. No sig nificant change from prior.
[2016-07-19 17:28] VITALS: BP 107/52; PULSE 67; RESP 18
== END 2016-07-19 17:28 | disposition home or self-care (01) ==
LOC: EC 15:59
DX: M79.605 Pain in left leg (principal); E11.40 Type 2 diabetes mellitus with diabetic neuropathy, unspecified; I25.2 Old myocardial infarction; I25.10 Atherosclerotic heart disease of native coronary artery without angina pectoris; Z87.891 Personal history of nicotine dependence; Z79.899 Other long term (current) drug therapy; Z91.041 Radiographic dye allergy status
CPT/HCPCS: 99284

== ENCOUNTER 2016-07-20 10:08 | Inpatient (IN) | payer MEDICARE, BC ==
[2016-07-20] MEDS ORDERED: SODIUM CHLORIDE 0.9% 1,000 ML IV STA ×3 (10:22→11:37)
[2016-07-20 10:23] LABS: Glucose,Whole Blood 596 mg/dL (75-99)
--- NOTE | 2016-07-20 10:26 | ED ---
General Adult HPI - General Stated complaint: Weakness Time Seen by Provider: 07/20/16 10:15 Source: patient, RN notes reviewed Mode of arrival: EMS Limitations: no limitations - History of Present Illness Initial comments: Patient is a pleasant 80-year-old male presenting to the emergency department complaining of left-sided weakness. Patient is a poor historian. Patient states he has had chronic left leg weakness for over a year. Patient states it just started yesterday morning when he woke. Patient states it has been persistent since that time. Patient states he is unable to stand up to Cath himself. Patient complains of weakness of both the left leg and left arm. Patient states left arm may be new. No confusion. No neck or back pain. No visual problems. Patient states he was in the hospital for the same problem yesterday - Related Data Home Medications Medication Instructions Recorded Confirmed Furosemide [Lasix] 40 mg PO DAILY 04/10/16 07/20/16 HYDROcodone/APAP 5-325MG [[place] 1 tab PO Q8H PRN 07/20/16 07/20/16 5-325] Previous Rx's Medication Instructions Recorded Insulin NPH Hum/Reg Insulin Hm See Protocol SQ AC-TID #1 vial 07/21/15 [NovoLIN 70-30 100 UNIT/ML VIAL] Nitroglycerin Sl Tabs [Nitrostat] 0.4 mg SUBLINGUAL Q5M PRN #25 tab 07/21/15 Atorvastatin [Lipitor] 40 mg PO DAILY #30 tab 11/20/15 Clopidogrel [Plavix] 75 mg PO DAILY #30 tab 11/20/15 Isosorbide Mononitrate ER [Imdur] 30 mg PO DAILY #30 tab.er.24h 11/20/15 Carvedilol [Coreg*] 12.5 mg PO BID-W/MEALS #60 tab 04/17/16 Lisinopril [Zestril] 10 mg PO DAILY #30 tab 04/17/16 amLODIPine [Norvasc] 10 mg PO DAILY #30 tab 04/17/16 Allergies Allergy/AdvReac Type Severity Reaction Status Date / Time Iodinated Contrast Media - AdvReac Rash/Hives Verified 07/20/16 11:07 Oral and Review of Systems ROS Statement: Those systems with pertinent positive or pertinent negative responses have been documented in the HPI. ROS Other: All systems not noted in ROS Statement are negative. Constitutional: Denies: fever Eyes: Denies: eye pain ENT: Denies: ear pain Respiratory: Denies: cough Cardiovascular: Denies: chest pain Endocrine: Denies: fatigue Gastrointestinal: Denies: abdominal pain Genitourinary: Reports: urgency Musculoskeletal: Denies: back pain Skin: Denies: rash Neurological: Reports: weakness, paresthesias. Denies: headache, confusion Past Medical History Past Medical History: Coronary Artery Disease (CAD), Chest Pain / Angina, CVA/ TIA, Diabetes Mellitus, Hypertension, [place]ocardial Infarction ([place]), Vascular Disorder Additional Past Medical History / Comment(s): URINARY RETENTION from effects from stroke REQUIRING SELF CATH,NEUROPATHY, PER OLD HX: PVD, X3 [place] [id number]- 2007, NEUROPATHY, CVA/TIA- left arm weakness Last Myocardial Infarction Date:: 2007 History of Any Multi-Drug Resistant Organisms: None Reported Past Surgical History: Coronary Bypass/CABG, Heart Catheterization Additional Past Surgical History / Comment(s): 5 VESSLEL BYPASS 2006, stent RT leg , nimisha CATARACT SX-LENS IMPLANT, angioplasty june 2016 Past Anesthesia/Blood Transfusion Reactions: No Reported Reaction Date of Last Stent Placement:: 2011 Past Psychological History: No Psychological Hx Reported Smoking Status: Former smoker Past Alcohol Use History: Rare Additional Past Alcohol Use History / Comment(s): smoked for 23 yrs- quit smoking 2007- smoked 2 PPD. Heavy etoh in the past - not current. Quit 40 years ago. Past Drug Use History: None Reported - Past Family History Brother(s) Family Medical History: Myocardial Infarction ([place]) Mother Family Medical History: Diabetes Mellitus Additional Family Medical History / Comment(s): AT AGE 93 Father Family Medical History: Myocardial Infarction ([place]) Additional Family Medical History / Comment(s): AT AGE 83 FROM [place]. General Exam Limitations: no limitations General appearance: alert, in no apparent distress Head exam: Present: atraumatic Eye exam: Present: normal appearance, PERRL, EOMI. Absent: nystagmus ENT exam: Present: normal oropharynx Neck exam: Present: normal inspection Respiratory exam: Present: normal lung sounds bilaterally Cardiovascular Exam: Present: regular rate, normal rhythm GI/Abdominal exam: Present: soft. Absent: tenderness Extremities exam: Present: normal inspection Back exam: Present: normal inspection. Absent: tenderness Neurological exam: Present: alert, CN II-XII intact. Absent: motor sensory deficit Expanded Speech: Present: fluid speech Cranial nerves: EOM's Intact: Normal, Facial Sensation: Normal Sensory exam: Upper Extremity Light Touch: Normal, Lower Extremity Light Touch: Normal Motor strength exam: RUE: 5, LUE: 5, RLE: 5, LLE: 5 Psychiatric exam: Present: normal affect, normal mood Skin exam: Present: normal color Course Vital Signs 07/20/16 07/20/16 10:36 10:51 Temperature 97 F L Pulse Rate 77 76 Respiratory 20 18 Rate Blood Pressure 190/78 161/70 O2 Sat by Pulse 100 Oximetry EKG Findings - EKG Comments: EKG Findings:: Normal sinus rhythm at 80. MI 180. QRS 112. QT 398. QTC 459. Normal axis. Normal QRS. Nonspecific ST-T. Medical Decision Making - Medical Decision Making Patient reevaluated and resting comfortably in bed. Patient and family were updated on results and plan. Case was discussed with Dr. Duff, who will admit his patient with consult for Dr. Neff. IV insulin drip will be started. Patient does qualify for severe sepsis criteria. IV antibiotics will be started. Lactic acid will be added. - Lab Data Result diagrams: 07/20/16 10:20 07/20/16 10:20 Lab Results 07/20/16 07/20/16 07/20/16 Range/Units 10:20 10:20 10:20 WBC 12.4 H (3.8-10.6) k/uL RBC 4.44 (4.30-5.90) m/uL Hgb 12.0 L (13.0-17.5) gm/dL Hct 37.8 L (39.0-53.0) % MCV 85.0 (80.0-100.0) fL MCH 27.1 (25.0-35.0) pg MCHC 31.8 (31.0-37.0) g/dL RDW 14.1 (11.5-15.5) % Plt Count 277 (150-450) k/uL Neutrophils % 83 % Lymphocytes % 12 % Monocytes % 3 % Eosinophils % 1 % Basophils % 0 % Neutrophils # 10.3 H (1.3-7.7) k/uL Lymphocytes # 1.5 (1.0-4.8) k/uL Monocytes # 0.4 (0-1.0) k/uL Eosinophils # 0.1 (0-0.7) k/uL Basophils # 0.0 (0-0.2) k/uL PT (9.0-12.0) sec INR (<1.1) APTT (22.0-30.0) sec Sodium 129 L (137-145) mmol/L Potassium 5.4 H (3.5-5.1) mmol/L Chloride 93 L (98-107) mmol/L Carbon Dioxide 24 (22-30) mmol/L Anion Gap 12 mmol/L BUN 81 H* (9-20) mg/dL Creatinine 2.08 H (0.66-1.25) mg/dL Est GFR (MDRD) Af Amer 38 (>60 ml/min/1.73 sqM) Est GFR (MDRD) Non-Af 31 (>60 ml/min/1.73 sqM) Glucose 604 H* (74-99) mg/dL POC Glucose (mg/dL) (75-99) mg/dL POC Glu [place] ID Calcium 9.9 (8.4-10.2) mg/dL Phosphorus 4.2 (2.5-4.5) mg/dL Magnesium 2.5 H (1.6-2.3) mg/dL Total Bilirubin 0.8 (0.2-1.3) mg/dL AST 11 L (17-59) U/L ALT 23 (21-72) U/L Alkaline Phosphatase 149 H (38-126) U/L Total Creatine Kinase 21 L (55-170) U/L CK-MB (CK-2) 0.8 (0.0-2.4) ng/mL CK-MB (CK-2) Rel Index 3.8 Troponin I <0.012 (0.000-0.034) ng/mL Total Protein 7.6 (6.3-8.2) g/dL Albumin 4.1 (3.5-5.0) g/dL Free T4 1.65 (0.78-2.19) ng/dL Urine Color Urine Appearance (Clear) Urine pH (5.0-8.0) Ur Specific [place] (1.001-1.035) Urine Protein (Negative) Urine Glucose (UA) (Negative) Urine Ketones (Negative) Urine Blood (Negative) Urine Nitrite (Negative) Urine Bilirubin (Negative) Urine Urobilinogen (<2.0) mg/dL Ur Leukocyte Esterase (Negative) Urine WBC (0-5) /hpf Urine WBC Clumps (None) /hpf Ur Squamous Epith Cells (0-4) /hpf Urine Bacteria (None) /hpf Hyaline Casts (0-2) /lpf Urine Mucus (None) /hpf Acetone, Qual Positive (Negative) 07/20/16 07/20/16 07/20/16 Range/Units 10:20 10:22 10:45 WBC (3.8-10.6) k/uL RBC (4.30-5.90) m/uL Hgb (13.0-17.5) gm/dL Hct (39.0-53.0) % MCV (80.0-100.0) fL MCH (25.0-35.0) pg MCHC (31.0-37.0) g/dL RDW (11.5-15.5) % Plt Count (150-450) k/uL Neutrophils % % Lymphocytes % % Monocytes % % Eosinophils % % Basophils % % Neutrophils # (1.3-7.7) k/uL Lymphocytes # (1.0-4.8) k/uL Monocytes # (0-1.0) k/uL Eosinophils # (0-0.7) k/uL Basophils # (0-0.2) k/uL PT 11.1 (9.0-12.0) sec INR 1.1 (<1.1) APTT 24.1 (22.0-30.0) sec Sodium (137-145) mmol/L Potassium (3.5-5.1) mmol/L Chloride (98-107) mmol/L Carbon Dioxide (22-30) mmol/L Anion Gap mmol/L BUN (9-20) mg/dL Creatinine (0.66-1.25) mg/dL Est GFR (MDRD) Af Amer (>60 ml/min/1.73 sqM) Est GFR (MDRD) Non-Af (>60 ml/min/1.73 sqM) Glucose (74-99) mg/dL POC Glucose (mg/dL) 596 H (75-99) mg/dL POC Glu [place] ID Charisse Ovalle Calcium (8.4-10.2) mg/dL Phosphorus (2.5-4.5) mg/dL Magnesium (1.6-2.3) mg/dL Total Bilirubin (0.2-1.3) mg/dL AST (17-59) U/L ALT (21-72) U/L Alkaline Phosphatase (38-126) U/L Total Creatine Kinase (55-170) U/L CK-MB (CK-2) (0.0-2.4) ng/mL CK-MB (CK-2) Rel Index Troponin I (0.000-0.034) ng/mL Total Protein (6.3-8.2) g/dL Albumin (3.5-5.0) g/dL Free T4 (0.78-2.19) ng/dL Urine Color Light Yellow Urine Appearance Cloudy (Clear) Urine pH 5.0 (5.0-8.0) Ur Specific [place] 1.013 (1.001-1.035) Urine Protein Trace H (Negative) Urine Glucose (UA) 4+ H (Negative) Urine Ketones Trace H (Negative) Urine Blood Trace H (Negative) Urine Nitrite Negative (Negative) Urine Bilirubin Negative (Negative) Urine Urobilinogen <2.0 (<2.0) mg/dL Ur Leukocyte Esterase Large H (Negative) Urine WBC 176 H (0-5) /hpf Urine WBC Clumps Occasional H (None) /hpf Ur Squamous Epith Cells 1 (0-4) /hpf Urine Bacteria Few H (None) /hpf Hyaline Casts 6 H (0-2) /lpf Urine Mucus Rare H (None) /hpf Acetone, Qual (Negative) - Radiology Data Radiology results: report reviewed (Computed tomography scan of the brain reveals no acute process. Age-related atrophy and chronic small vessel changes noted.), image reviewed (Chest x-ray shows no acute process) Critical Care Time Critical Care Time: Yes Total Critical Care Time: 34 Disposition Clinical Impression: Urinary tract infection, Diabetic ketoacidosis, Dehydration, Severe sepsis Disposition: ADMITTED IP TO THIS [facility] Condition: Serious
[2016-07-20 10:45] LABS: Basophils % (A) 0 %; CH 27.4; CHCM 32.4; Eosinophils # (A) 0.1 k/uL (0-0.7); Eosinophils % (A) 1 %; HCT 37.8 % (39.0-53.0); HDW 2.69; Luc # (Auto) 0.14; Luc % (Auto) 1; Lymphocytes # (A) 1.5 k/uL (1.0-4.8); Lymphocytes % (A) 12 %; MCH 27.1 pg (25.0-35.0); MCHC 31.8 g/dL (31.0-37.0); Mean Platelet Volume 7.1; Monocytes # (A) 0.4 k/uL (0-1.0); Monocytes % (A) 3 %; Neutrophils # (A) 10.3 k/uL (1.3-7.7); Neutrophils % (A) 83 %; RBC 4.44 m/uL (4.30-5.90); RDW 14.1 % (11.5-15.5); WBC 12.4 k/uL (3.8-10.6); WBC (Perox) 12.44
[2016-07-20 10:52] LABS: INR 1.1 (<1.1); Partial Thromboplastin Time 24.1 sec (22.0-30.0); Prothrombin Time 11.1 sec (9.0-12.0)
[2016-07-20 11:04] LABS: Appearance,Urine Cloudy (Clear); Bacteria,Urine Few /hpf; Bilirubin,Urine Negative (Negative); Glucose,Urine (UA) 4+ (Negative); Ketones,Urine Trace (Negative); Leukocyte Esterase,Urine Large (Negative); Mucus,Urine Rare /hpf; Nitrite,Urine Negative (Negative); Particle Count 5735; Protein,Urine Trace (Negative); Specific Gravity,Urine 1.013 (1.001-1.035); Squamous Epithelial Cell,Urine 1 /hpf (0-4); UA Billing (MACRO vs. MICRO) MICRO; Urobilinogen,Urine <2.0 mg/dL (<2.0); WBC,Urine 176 /hpf (0-5)
[2016-07-20 11:06] LABS: Creatine Kinase 21 U/L (55-170)
[2016-07-20 11:08] LABS: ALT 23 U/L (21-72); AST 11 U/L (17-59); Alkaline Phosphatase 149 U/L (38-126); Anion Gap 12 mmol/L; Calcium 9.9 mg/dL (8.4-10.2); Carbon Dioxide 24 mmol/L (22-30); Chloride 93 mmol/L (98-107); Magnesium 2.5 mg/dL (1.6-2.3); Non-African American GFR(MDRD) 31 (>60 ml/min/1.73 sqM); Phosphorous 4.2 mg/dL (2.5-4.5); Potassium 5.4 mmol/L (3.5-5.1); Sodium 129 mmol/L (137-145); Total Bilirubin 0.8 mg/dL (0.2-1.3); Total Protein 7.6 g/dL (6.3-8.2)
[2016-07-20 11:20] LABS: Creatine Kinase MB 0.8 ng/mL (0.0-2.4); Troponin I <0.012 ng/mL (0.000-0.034)
[2016-07-20 11:21] LABS: Blood Urea Nitrogen 81 mg/dL (9-20); Glucose 604 mg/dL (74-99)
--- NOTE | 2016-07-20 11:22 | CT ---
EXAMINATION TYPE: CT brain wo con DATE OF EXAM: 07/20/2016 11:09 AM COMPARISON: 02/17/2014 HISTORY: Generalized weakness CT DLP: [address] of the brain was performed. The ventricles, basal cisterns and sulci overlying the cerebral convexities demonstrate moderate enla rgement. Remote insult left occipital lobe. There is no evidence for intracranial hemorrhage or sulcal effacement. There is decreased attenuation about the periventricular white matter and deep white matter of both c erebral hemispheres, compatible with chronic small vessel ischemia. Differential diagnosis does inclu de demyelination. No mass effects are seen.No midline shift. Osseous calvarium is intact. If symptoms persist consider MRI. IMPRESSION: 1. Age related atrophic and chronic small vessel ischemic change without acute intracranial process s een at this time.
--- NOTE | 2016-07-20 11:23 | XR ---
EXAMINATION TYPE: XR chest 2V DATE OF EXAM: 07/20/2016 11:13 AM COMPARISON: 04/09/2016 HISTORY: Shortness of breath TECHNIQUE: Frontal and lateral views of the chest are obtained. FINDINGS: Scattered senescent parenchymal changes noted. Hyperinflation compatible with COPD. No evidence for infiltrate. No evidence for atelectasis. Heart size is stable. Mediastinal structures are stable and grossly unremarkable. No evidence for hilar prominence. Degenerative changes dorsal spine. IMPRESSION: 1. No evidence for acute pulmonary disease.
[2016-07-20] MEDS ORDERED: SODIUM CHLORIDE 0.9% 1,000 ML IV ONE (11:35)
[2016-07-20] MEDS ORDERED: INSULIN REGULAR BOLUS (FROM DRIP BAG) IV ONE (11:35)
[2016-07-20] MEDS ORDERED: INSULIN REGULAR 100 UNIT in SODIUM CHLORIDE 0.9% 100 ML IV SCH (11:45)
[2016-07-20] MEDS ORDERED: SODIUM CHLORIDE 0.9% 1,000 ML IV SCH (11:45)
[2016-07-20 12:13] LABS: Glucose,Whole Blood 554 mg/dL (75-99)
[2016-07-20 12:38] LABS: Glucose,Whole Blood 499 mg/dL (75-99)
[2016-07-20 13:05] LABS: Glucose,Whole Blood 442 mg/dL (75-99)
[2016-07-20 13:45] LABS: Glucose,Whole Blood 396 mg/dL (75-99)
[2016-07-20 14:02] LABS: Glucose,Whole Blood 360 mg/dL (75-99)
[2016-07-20 14:50] VITALS: BMI 23.0
[2016-07-20 14:52] LABS: Phosphorous 3.1 mg/dL (2.5-4.5); Potassium 4.2 mmol/L (3.5-5.1)
--- NOTE | 2016-07-20 15:22 | P.GSHP ---
History of Present Illness H&P Date: 07/20/16 Chief Complaint: Left-sided weakness This 80-year-old gentleman lives at home. He takes care of his own blood sugars at home, but appears to have been doing a poor job of it. He was admitted with sugars in the 500s. He tells me that the sugars had been going up and he had not really attended to it. He has a long history of some weakness of the left leg. He feels that this has gotten somewhat worse during this. Of time and he is barely able to walk. He feels that there is some numbness of his left arm. This does not appear to be an acute episode but more a gradual progression. - Constitutional Constitutional: Reports fatigue, Reports weakness, Denies chills, Denies fever - EENT Eyes: denies blurred vision, denies pain Ears, nose, mouth and throat: Denies headache, Denies sore throat - Cardiovascular Cardiovascular: Reports decreased exercise tolerance, Denies chest pain, Denies edema, Denies orthopnea, Denies paroxysmal nocturnal dyspnea, Denies shortness of breath - Respiratory Respiratory: Denies cough, Denies dyspnea, Denies hemoptysis - Gastrointestinal Gastrointestinal: Denies abdominal pain, Denies coffee ground emesis, Denies diarrhea, Denies hematemesis, Denies jaundice, Denies melena, Denies nausea, Denies vomiting - Genitourinary (Female) Genitourinary: Denies dysuria, Denies hematuria - Genitourinary (Male) Genitourinary: Denies dysuria, Denies hematuria - Musculoskeletal Musculoskeletal: Denies myalgias - Integumentary Integumentary: Denies pruritus, Denies rash - Neurological Comment: See chief complaint. Patient denies visual or speech deficits Neurological: Reports numbness, Reports weakness, Denies paresthesias, Denies transient paralysis - Psychiatric Psychiatric: Denies anxiety, Denies depression - Endocrine Endocrine: Denies fatigue, Denies weight change Past Medical History Past Medical History: Coronary Artery Disease (CAD), Chest Pain / Angina, CVA/ TIA, Diabetes Mellitus, Hypertension, Myocardial Infarction ([place]), Renal Disease , Vascular Disorder Additional Past Medical History / Comment(s): URINARY RETENTION pt thinks possible from effects from stroke as well as L arm/leg weakness, REQUIRING SELF CATH, IDDM type II, bilateral NEUROPATHY hands and feet, PVD, [place]'S with last one being 04/09/16, CKD stage III, normocytic anemia, UTIs. Last Myocardial Infarction Date:: 2016 History of Any Multi-Drug Resistant Organisms: None Reported Past Surgical History: Coronary Bypass/CABG, Heart Catheterization, Heart Catheterization With Stent Additional Past Surgical History / Comment(s): 5 VESSLEL BYPASS 2006, stent RT leg , arthrectomy/stent March 2016, bilateral cataract removal with lens implants. Past Anesthesia/Blood Transfusion Reactions: No Reported Reaction Date of Last Stent Placement:: 2016 Past Psychological History: No Psychological Hx Reported Additional Psychological History / Comment(s): Pt resides with his spouse. His kosude-tb-ogj is their evp sales and is with them daily. Pt normally can ambulate with a walker. He no longer drives. His evp sales takes him to appts. His evp sales manages his medications. Smoking Status: Former smoker Past Alcohol Use History: Rare Additional Past Alcohol Use History / Comment(s): smoked for many yrs- quit smoking 2008- smoked 2 PPD. Heavy etoh in the past - not current-quit 40 years ago. Past Drug Use History: None Reported - Past Family History Brother(s) Family Medical History: Myocardial Infarction ([place]) Mother Family Medical History: Diabetes Mellitus Additional Family Medical History / Comment(s): AT AGE 93 Father Family Medical History: Myocardial Infarction ([place]) Additional Family Medical History / Comment(s): AT AGE 83 FROM [place]. Medications and Allergies Home Medications Medication Instructions Recorded Confirmed Type Furosemide [Lasix] 40 mg PO DAILY 04/10/16 07/20/16 History HYDROcodone/APAP 5-325MG [Ivel 1 tab PO Q8H PRN 07/20/16 07/20/16 History 5-325] Allergies Allergy/AdvReac Type Severity Reaction Status Date / Time Iodinated Contrast Media - AdvReac Rash/Hives Verified 07/20/16 11:07 Oral and Surgical - Exam Osteopathic Statement: *. No significant issues noted on an osteopathic structural exam other than those noted in the History and Physical/Consult. Vital Signs Temp Pulse Resp BP 97 F L 77 20 190/78 07/20/16 10:36 07/20/16 10:36 07/20/16 10:36 07/20/16 10:36 - General well developed, well nourished, no distress - Eyes normal ocular movement, no icteric - ENT no hearing loss, no congestion - Neck no masses, trachea midline carotid bruit: left - Respiratory normal respiratory effort, clear to auscultation - Abdomen Abdomen: soft, non tender, no guarding, no rigid, no rebound - Integumentary no rash, no abnormal pigmentation - Neurologic no disoriented, no combative - Psychiatric oriented to time, oriented to person, oriented to place, speech is normal, memory intact Results - Labs 07/20/16 10:20 07/20/16 14:04 Abnormal Lab Results - Last 24 Hours (Table) 07/20/16 07/20/16 07/20/16 Range/Units 12:03 12:34 13:03 BUN (9-20) mg/dL Creatinine (0.66-1.25) mg/dL Glucose (74-99) mg/dL POC Glucose (mg/dL) 554 H 499 H 442 H (75-99) mg/dL 07/20/16 07/20/16 07/20/16 Range/Units 13:24 14:00 14:04 BUN 67 H (9-20) mg/dL Creatinine 1.68 H (0.66-1.25) mg/dL Glucose 330 H (74-99) mg/dL POC Glucose (mg/dL) 396 H 360 H (75-99) mg/dL Diabetes panel 07/20/16 Range/Units 14:04 Sodium 137 (137-145) mmol/L Potassium 4.2 (3.5-5.1) mmol/L Chloride 103 (98-107) mmol/L Carbon Dioxide 24 (22-30) mmol/L BUN 67 H (9-20) mg/dL Creatinine 1.68 H (0.66-1.25) mg/dL Glucose 330 H (74-99) mg/dL Calcium panel 07/20/16 Range/Units 14:04 Phosphorus 3.1 (2.5-4.5) mg/dL Pituitary panel 07/20/16 Range/Units 14:04 Sodium 137 (137-145) mmol/L Potassium 4.2 (3.5-5.1) mmol/L Chloride 103 (98-107) mmol/L Carbon Dioxide 24 (22-30) mmol/L BUN 67 H (9-20) mg/dL Creatinine 1.68 H (0.66-1.25) mg/dL Glucose 330 H (74-99) mg/dL Adrenal panel 07/20/16 Range/Units 14:04 Sodium 137 (137-145) mmol/L Potassium 4.2 (3.5-5.1) mmol/L Chloride 103 (98-107) mmol/L Carbon Dioxide 24 (22-30) mmol/L BUN 67 H (9-20) mg/dL Creatinine 1.68 H (0.66-1.25) mg/dL Glucose 330 H (74-99) mg/dL Assessment and Plan (1) Weakness of left side of body Status: Acute Plan: This patient's symptoms are a bit vague. He is a poor historian. They seem to be somewhat more insidious in onset than acute. It is possible that this is a progression due to his elevated blood sugars. I would recommend a carotid duplex. He tells me this was done recently and the family service caseworker's office. Depending on the findings of this duplex we would consider whether or not to perform an MRA. I do feel that his other general medical problems are far more pressing at this time. I will be happy to follow him as an outpatient once he is stabilized. I am quite concerned about his ability to take care of himself at home.
[2016-07-20] MEDS ORDERED: INSULIN NPH 300 UNIT/3 ML VIAL SQ ONE (15:26)
[2016-07-20] MEDS ORDERED: D5-0.45% NACL WITH KCL 20MEQ/L 1,000 ML IV SCH (15:30)
[2016-07-20 15:32] LABS: Glucose,Whole Blood 290 mg/dL (75-99)
[2016-07-20] MEDS ORDERED: NITROGLYCERIN SL TABS 0.4 MG TAB SUBLINGUAL PRN (15:44)
[2016-07-20 16:02] LABS: Glucose,Whole Blood 286 mg/dL (75-99)
[2016-07-20 16:29] LABS: Glucose,Whole Blood 249 mg/dL (75-99)
[2016-07-20] MEDS: INSULIN LISPRO (humaLOG) 300 UNIT/3 ML VIAL SQ SCH ×3 (17:18→21:34)
[2016-07-20] MEDS: ISOSORBIDE MONONITRATE ER 30 MG TAB.ER.24H PO SCH (17:19)
[2016-07-20] MEDS: ATORVASTATIN 40 MG TAB PO SCH (17:19)
[2016-07-20] MEDS: CLOPIDOGREL 75 MG TAB PO SCH (17:19)
[2016-07-20] MEDS: amLODIPine 10 MG TAB PO SCH (17:19)
[2016-07-20] MEDS: CARVEDILOL 12.5 MG TAB PO SCH (17:19)
[2016-07-20 18:49] LABS: Phosphorous 2.9 mg/dL (2.5-4.5); Potassium 4.3 mmol/L (3.5-5.1)
[2016-07-20] MEDS: INSULIN GLARGINE 100 UNIT/ML 10 ML VIAL SQ SCH (21:14)
[2016-07-20] MEDS: HYDROcodone/APAP 5-325MG 1 EACH TAB PO PRN (21:27)
[2016-07-20] MEDS: HEPARIN SODIUM,PORCINE 5,000 UNIT/ML 1 ML VIAL SQ SCH (21:28)
[2016-07-20 21:36] LABS: Glucose,Whole Blood 171 mg/dL (75-99)
[2016-07-20] MEDS: SODIUM CHLORIDE 0.9% 1,000 ML IV SCH (21:43)
[2016-07-21 06:20] LABS: Glucose,Whole Blood 122 mg/dL (75-99)
[2016-07-21] MEDS: INSULIN LISPRO (humaLOG) 300 UNIT/3 ML VIAL SQ SCH ×7 (06:38→21:26)
[2016-07-21] MEDS: CARVEDILOL 12.5 MG TAB PO SCH ×2 (06:49→17:34)
[2016-07-21] MEDS: ATORVASTATIN 40 MG TAB PO SCH (08:42)
[2016-07-21] MEDS: ISOSORBIDE MONONITRATE ER 30 MG TAB.ER.24H PO SCH (08:42)
[2016-07-21] MEDS: FAMOTIDINE 20 MG TAB PO SCH (08:42)
[2016-07-21] MEDS: CLOPIDOGREL 75 MG TAB PO SCH (08:42)
[2016-07-21] MEDS: amLODIPine 10 MG TAB PO SCH (08:42)
[2016-07-21] MEDS: HEPARIN SODIUM,PORCINE 5,000 UNIT/ML 1 ML VIAL SQ SCH ×2 (08:43→20:29)
[2016-07-21] MEDS: HYDROcodone/APAP 5-325MG 1 EACH TAB PO PRN ×2 (08:51→20:29)
[2016-07-21 09:57] LABS: Basophils % (A) 0 %; CH 27.5; CHCM 33.8; Eosinophils # (A) 0.1 k/uL (0-0.7); Eosinophils % (A) 1 %; HCT 31.4 % (39.0-53.0); HGB 10.6 gm/dL (13.0-17.5); Luc # (Auto) 0.17; Luc % (Auto) 2; Lymphocytes # (A) 1.8 k/uL (1.0-4.8); Lymphocytes % (A) 15 %; MCH 27.5 pg (25.0-35.0); MCHC 33.7 g/dL (31.0-37.0); MCV 81.8 fL (80.0-100.0); Mean Platelet Volume 6.9; Monocytes # (A) 0.6 k/uL (0-1.0); Monocytes % (A) 5 %; Neutrophils % (A) 77 %; RBC 3.84 m/uL (4.30-5.90); WBC 11.7 k/uL (3.8-10.6); WBC (Perox) 11.47
[2016-07-21 10:01] LABS: Anion Gap 8 mmol/L; Blood Urea Nitrogen 47 mg/dL (9-20); Calcium 9.1 mg/dL (8.4-10.2); Carbon Dioxide 25 mmol/L (22-30); Chloride 108 mmol/L (98-107); Glucose 154 mg/dL (74-99); Non-African American GFR(MDRD) 54 (>60 ml/min/1.73 sqM); Potassium 4.4 mmol/L (3.5-5.1); Sodium 141 mmol/L (137-145)
[2016-07-21 10:49] LABS: Hemoglobin A1C 13.5 % (4.2-6.1)
[2016-07-21 11:34] LABS: Glucose,Whole Blood 160 mg/dL (75-99)
--- NOTE | 2016-07-21 12:33 | P.CRDCN ---
History of Present Illness Consult date: 07/21/16 Chief complaint: stroke History of present illness: This is a pleasant 80-year-old gentleman with a past medical history significant for CAD and prior bypass and stenting with the loss the stent of the left circumflex was performed a few months ago, hypertension, dyslipidemia, as well as multiple comorbid conditions presented to the emergency room complaining of left sided weakness. The patient was in his usual state of health until about a few days ago when he suddenly felt left arm and left leg weakness. It seems that the left leg is more pronounced than the left arm. Beside that he noticed some slurred speech. No visual disturbance. He did not have any symptoms of chest pain or discomfort or difficulty breathing. The patient is known to have carotid artery disease where the loss carotid duplex study was performed in January 2016 in our office and showed an intermediate bilateral carotid disease. He just underwent carotid Doppler Study recently as well as in the office and we will obtain a copy. The patient I did not hear any carotid bruit. But definitely the patient has left arm and left leg weakness. He has been maintaining normal sinus mechanism during his hospitalization. I do feel that we need to do a carotid CTA for the patient. We'll await for the input from the neurology service. We'll continue following up with him. Past Medical History Past Medical History: Coronary Artery Disease (CAD), Chest Pain / Angina, CVA/ TIA, Diabetes Mellitus, Hypertension, Myocardial Infarction ([place]), Renal Disease , Vascular Disorder Additional Past Medical History / Comment(s): URINARY RETENTION pt thinks possible from effects from stroke as well as L arm/leg weakness, REQUIRING SELF CATH, IDDM type II, bilateral NEUROPATHY hands and feet, PVD, [place]'S with last one being 04/09/16, CKD stage III, normocytic anemia, UTIs. Last Myocardial Infarction Date:: 2016 History of Any Multi-Drug Resistant Organisms: None Reported Past Surgical History: Coronary Bypass/CABG, Heart Catheterization, Heart Catheterization With Stent Additional Past Surgical History / Comment(s): 5 VESSLEL BYPASS 2006, stent RT leg , arthrectomy/stent March 2016, bilateral cataract removal with lens implants. Past Anesthesia/Blood Transfusion Reactions: No Reported Reaction Date of Last Stent Placement:: 2016 Past Psychological History: No Psychological Hx Reported Additional Psychological History / Comment(s): Pt resides with his spouse. His flcinc-ot-fay is their associate professor and is with them daily. Pt normally can ambulate with a walker. He no longer drives. His associate professor takes him to app. His associate professor manages his medications. Smoking Status: Former smoker Past Alcohol Use History: Rare Additional Past Alcohol Use History / Comment(s): smoked for many yrs- quit smoking 2008- smoked 2 PPD. Heavy etoh in the past - not current-quit 40 years ago. Past Drug Use History: None Reported - Past Family History Brother(s) Family Medical History: Myocardial Infarction ([place]) Mother Family Medical History: Diabetes Mellitus Additional Family Medical History / Comment(s): AT AGE 93 Father Family Medical History: Myocardial Infarction ([place]) Additional Family Medical History / Comment(s): AT AGE 83 FROM [place]. Medications and Allergies Home Medications Medication Instructions Recorded Confirmed Type Furosemide [Lasix] 40 mg PO DAILY 04/10/16 07/20/16 History HYDROcodone/APAP 5-325MG [[place] 1 tab PO Q8H PRN 07/20/16 07/20/16 History 5-325] Allergies Allergy/AdvReac Type Severity Reaction Status Date / Time Iodinated Contrast Media - AdvReac Rash/Hives Verified 07/20/16 11:07 Oral and Physical Exam Vitals: Vital Signs Temp Pulse Pulse Resp BP BP Pulse Ox 07/21/16 11:52 70 17 95/50 95 07/21/16 08:00 96.8 F L 73 18 132/56 96 07/21/16 04:00 97.1 F L 75 16 130/61 94 L 07/21/16 00:00 97.5 F L 72 17 103/55 97 07/20/16 20:00 97.4 F L 68 16 140/67 97 07/20/16 16:00 89 18 07/20/16 13:44 97.2 F L 89 18 188/76 07/20/16 12:47 97.5 F L 85 18 161/67 97 Intake and Output 07/20/16 07/21/16 07/21/16 22:59 06:59 14:59 Intake Total 880 800 Output Total 1500 800 Balance -620 -800 800 Intake: Intake, IV Titration 160 80 Amount Sodium Chloride 0.9% 1, 160 80 000 ml @ 20 mls/hr IV . Q24H [facility] Rx#:[id number] Oral 720 720 Output: Urine 1500 800 Uretheral (Alves) 500 Other: Voiding Method Indwelling Catheter Indwelling Catheter Indwelling Catheter # Voids 0 1 - Constitutional General appearance: no acute distress - Respiratory Respiratory: bilateral: CTA - Cardiovascular Rhythm: regular Heart sounds: normal: S1, S2 Results 07/21/16 09:29 07/21/16 09:29 CBC 07/21/16 Range/Units 09:29 WBC 11.7 H (3.8-10.6) k/uL RBC 3.84 L (4.30-5.90) m/uL Hgb 10.6 L (13.0-17.5) gm/dL Hct 31.4 L (39.0-53.0) % Plt Count 243 (150-450) k/uL Comprehensive Metabolic Panel 07/20/16 07/20/16 07/21/16 Range/Units 14:04 18:16 09:29 Sodium 137 138 141 (137-145) mmol/L Potassium 4.2 4.3 4.4 (3.5-5.1) mmol/L Chloride 103 105 108 H (98-107) mmol/L Carbon Dioxide 24 25 25 (22-30) mmol/L BUN 67 H 62 H 47 H (9-20) mg/dL Creatinine 1.68 H 1.43 H 1.29 H (0.66-1.25) mg/dL Glucose 330 H 246 H 154 H (74-99) mg/dL Calcium 9.1 (8.4-10.2) mg/dL Current Medications Generic Name Dose Route Start Last Admin Trade Name Freq PRN Reason Stop Dose Admin Hydrocodone Bitart/Acetaminophen 1 each 07/20/16 15:44 07/21/16 08:51 [place] 5-325 PO 1 each Q8H PRN Administration Pain Amlodipine Besylate 10 mg 07/20/16 16:00 07/21/16 08:42 Norvasc PO 10 mg DAILY [facility] Administration Atorvastatin Calcium 40 mg 07/20/16 16:00 07/21/16 08:42 Lipitor PO 40 mg DAILY K[facility] Administration Carvedilol 12.5 mg 07/20/16 17:30 07/21/16 06:49 Coreg PO 12.5 mg BID-W/MEALS [facility] Administration Clopidogrel Bisulfate 75 mg 07/20/16 16:00 07/21/16 08:42 Plavix PO 75 mg DAILY [facility] Administration Famotidine 20 mg 07/21/16 09:00 07/21/16 08:42 Pepcid PO 20 mg DAILY K[facility] Administration Heparin Sodium (Porcine) 5,000 unit 07/20/16 21:00 07/21/16 08:43 Heparin SQ 5,000 unit Q12HR [facility] Administration Ceftriaxone Sodium 1,000 mg/ 50 mls @ 100 mls/hr 07/20/16 21:00 07/21/16 09: 07 Sodium Chloride IVPB 100 mls/hr Q12HR [facility] Administration Sodium Chloride 1,000 mls @ 20 mls/hr 07/20/16 21:16 07/20/16 21:43 Saline 0.9% IV 20 mls/hr .Q24H [facility] Administration Insulin Glargine 18 unit 07/20/16 21:00 07/20/16 21:14 Lantus SQ 18 unit HS K[facility] Administration Insulin Human Lispro 6 unit 07/20/16 17:30 07/21/16 12:05 Humalog SQ 6 unit AC-TID K[facility] Administration Insulin Human Lispro 0 unit 07/20/16 17:30 07/21/16 12:06 Humalog SQ 1 unit ACHS K[facility] Administration Protocol Isosorbide Mononitrate 30 mg 07/20/16 16:00 07/21/16 08:42 Imdur PO 30 mg DAILY K[facility] Administration Nitroglycerin 0.4 mg 07/20/16 15:44 Nitrostat SUBLINGUAL Q5M PRN Chest Pain Intake and Output 07/20/16 07/21/16 07/21/16 22:59 06:59 14:59 Intake Total 880 800 Output Total 1500 800 Balance -620 -800 800 Intake: Intake, IV Titration 160 80 Amount Sodium Chloride 0.9% 1, 160 80 000 ml @ 20 mls/hr IV . Q24H [facility] Rx#:[id number] Oral 720 720 Output: Urine 1500 800 Uretheral (Alves) 500 Other: Voiding Method Indwelling Catheter Indwelling Catheter Indwelling Catheter # Voids 0 1 07/21/16 09:29 07/21/16 09:29 Assessment and Plan Plan: Assessment #1 left sided weakness #2 known bilateral carotid disease #3 CAD and prior revascularization #4 multiple comorbid conditions Plan #1 I would suggest proceeding with a carotid CTA #2 continue the current medical treatment #3 follow-up with the patient
[2016-07-21] MEDS ORDERED: RX INFO: IV CONTRAST WAS GIVEN 1 EACH MISC MISCELLANE PRN (15:11)
--- NOTE | 2016-07-21 15:16 | P.HPIM ---
History of Present Illness H&P Date: 07/21/16 Chief Complaint: Left-sided weakness Patient is a 80-year-old male, patient of Dr. Duff in the outpatient setting, with complex medical history significant for coronary artery disease with stent placement and previous coronary artery bypass surgery, myocardial infarction, neuropathy, peripheral vascular disease, urinary tract infection with sepsis, chronic kidney disease stage III, anemia of chronic disease, CVA and TIA, diabetes mellitus type 2, hypertension, urinary retention and self catheterization. Patient presented to the emergency department with complaints of left upper and lower extremity weakness and numbness more so in the left leg. Patient does have a history of chronic weakness to left upper and lower extremity from previous CVA. CT of brain with no acute process. Chest x-ray with no evidence of acute cardiopulmonary process. Patient was found to have evidence of a urinary tract infection, diabetic ketoacidosis, dehydration, and severe sepsis. Patient was started on the DKA protocol, fluid resuscitated with 2.5 L of fluids, started on IV antibiotics and admitted to the selective care unit with consult to vascular surgeon and cardiology service. Upon examination, patient is just getting back from ambulating with a walker in the room requiring 2 person assist. Patient complains of left lower extremity numbness and burning. Patient states he does have a history of neuropathy and is being treated with Neurontin. Patient denies chills, fevers, nausea, vomiting, shortness of breath, chest pain, or abdominal pain. Patient reports decreased appetite for about a week. Patient is afebrile. Blood pressure 132/ 56. Oxygen 96% on room air. WBC decreased to 11.7. Hemoglobin 10.6 from 12 yesterday. BUN and creatinine improved from yesterday. Patient has been transitioned off the DKA protocol to subcu insulin. Preliminary urine and blood cultures pending. Patient has been evaluated by Dr. Neff from vascular service who recommended a carotid duplex if not already done. Per chart, had a carotid artery duplex done in January 2016 with evidence of an intermediate bilateral carotid disease; patient recently underwent another carotid Doppler with results pending from [facility] network [facility] office. Aerial Sprayer recommended that patient undergo a carotid CTA. Neurology consult in place, recommendations pending. Past Medical History Past Medical History: Coronary Artery Disease (CAD), Chest Pain / Angina, CVA/ TIA, Diabetes Mellitus, Hypertension, Myocardial Infarction ([place]), Renal Disease , Vascular Disorder Additional Past Medical History / Comment(s): URINARY RETENTION pt thinks possible from effects from stroke as well as L arm/leg weakness, REQUIRING SELF CATH, IDDM type II, bilateral NEUROPATHY hands and feet, PVD, [place]'S with last one being 04/09/16, CKD stage III, normocytic anemia, UTIs. Last Myocardial Infarction Date:: 2016 History of Any Multi-Drug Resistant Organisms: None Reported Past Surgical History: Coronary Bypass/CABG, Heart Catheterization, Heart Catheterization With Stent Additional Past Surgical History / Comment(s): 5 VESSLEL BYPASS 2006, stent RT leg , arthrectomy/stent March 2016, bilateral cataract removal with lens implants. Past Anesthesia/Blood Transfusion Reactions: No Reported Reaction Date of Last Stent Placement:: 2016 Past Psychological History: No Psychological Hx Reported Additional Psychological History / Comment(s): Pt resides with his spouse. His otbosk-li-sgr is their servicenow administrator and is with them daily. Pt normally can ambulate with a walker. He no longer drives. His servicenow administrator takes him to app. His servicenow administrator manages his medications. Smoking Status: Former smoker Past Alcohol Use History: Rare Additional Past Alcohol Use History / Comment(s): smoked for many yrs- quit smoking 2008- smoked 2 PPD. Heavy etoh in the past - not current-quit 40 years ago. Past Drug Use History: None Reported - Past Family History Brother(s) Family Medical History: Myocardial Infarction ([place]) Mother Family Medical History: Diabetes Mellitus Additional Family Medical History / Comment(s): AT AGE 93 Father Family Medical History: Myocardial Infarction ([place]) Additional Family Medical History / Comment(s): AT AGE 83 FROM [place]. Medications and Allergies Home Medications Medication Instructions Recorded Confirmed Type Furosemide [Lasix] 40 mg PO DAILY 04/10/16 07/20/16 History HYDROcodone/APAP 5-325MG [[place] 1 tab PO Q8H PRN 07/20/16 07/20/16 History 5-325] Allergies Allergy/AdvReac Type Severity Reaction Status Date / Time Iodinated Contrast Media - AdvReac Rash/Hives Verified 07/20/16 11:07 Oral and Physical Exam Vitals: Vital Signs Temp Pulse Resp BP Pulse Ox 07/21/16 11:52 70 17 95/50 95 07/21/16 08:00 96.8 F L 73 18 132/56 96 07/21/16 04:00 97.1 F L 75 16 130/61 94 L 07/21/16 00:00 97.5 F L 72 17 103/55 97 07/20/16 20:00 97.4 F L 68 16 140/67 97 07/20/16 16:00 89 18 Intake and Output 07/20/16 07/21/16 07/21/16 22:59 06:59 14:59 Intake Total 880 800 Output Total 1500 800 Balance -620 -800 800 Intake: Intake, IV Titration 160 80 Amount Sodium Chloride 0.9% 1, 160 80 000 ml @ 20 mls/hr IV . Q24H [facility] Rx#:[id number] Oral 720 720 Output: Urine 1500 800 Uretheral (Alves) 500 Other: Voiding Method Indwelling Catheter Indwelling Catheter Indwelling Catheter # Voids 0 1 GENERAL: Pt awake and alert, frail looking, in no acute distress. HEAD: Atraumatic, normocephalic. EYES: Pupils equal, round, and reactive to light, extraocular movements intact, sclera anicteric, conjunctiva are normal. ENT: Moist mucous membranes. NECK:Supple without lymphadenopathy or JVD. LUNGS: Breath sounds clear to auscultation bilaterally. No wheezes, rales, or rhonchi. HEART: Heart S1, S2, no S3 or S4. Regular rate and rhythm. No murmurs, rubs or gallops. ABDOMEN: Soft, nontender, nondistended, normoactive bowel sounds. No guarding, no rebound. No masses or organomegaly appreciated. EXTREMITIES: 2+ peripheral pulses. No edema.No calf tenderness. NEUROLOGICAL: Pt oriented x 3. No gross focal deficits. Decreased strength and sensation to left lower extremity. PSYCH: Normal mood, normal affect. SKIN: Warm, dry, intact. Normal turgor. No rashes or lesions. Results CBC & Chem 7: 07/21/16 09:29 07/21/16 09:29 Labs: Abnormal Lab Results - Last 24 Hours (Table) 07/20/16 07/20/16 07/20/16 Range/Units 14:04 15:11 15:58 WBC (3.8-10.6) k/uL RBC (4.30-5.90) m/uL Hgb (13.0-17.5) gm/dL Hct (39.0-53.0) % Neutrophils # (1.3-7.7) k/uL Chloride (98-107) mmol/L BUN 67 H (9-20) mg/dL Creatinine 1.68 H (0.66-1.25) mg/dL Glucose 330 H (74-99) mg/dL POC Glucose (mg/dL) 290 H 286 H (75-99) mg/dL 07/20/16 07/20/16 07/20/16 Range/Units 16:26 18:16 21:32 WBC (3.8-10.6) k/uL RBC (4.30-5.90) m/uL Hgb (13.0-17.5) gm/dL Hct (39.0-53.0) % Neutrophils # (1.3-7.7) k/uL Chloride (98-107) mmol/L BUN 62 H (9-20) mg/dL Creatinine 1.43 H (0.66-1.25) mg/dL Glucose 246 H (74-99) mg/dL POC Glucose (mg/dL) 249 H 171 H (75-99) mg/dL 07/21/16 07/21/16 07/21/16 Range/Units 06:18 09:29 09:29 WBC 11.7 H (3.8-10.6) k/uL RBC 3.84 L (4.30-5.90) m/uL Hgb 10.6 L (13.0-17.5) gm/dL Hct 31.4 L (39.0-53.0) % Neutrophils # 9.0 H (1.3-7.7) k/uL Chloride 108 H (98-107) mmol/L BUN 47 H (9-20) mg/dL Creatinine 1.29 H (0.66-1.25) mg/dL Glucose 154 H (74-99) mg/dL POC Glucose (mg/dL) 122 H (75-99) mg/dL 07/21/16 Range/Units 11:32 WBC (3.8-10.6) k/uL RBC (4.30-5.90) m/uL Hgb (13.0-17.5) gm/dL Hct (39.0-53.0) % Neutrophils # (1.3-7.7) k/uL Chloride (98-107) mmol/L BUN (9-20) mg/dL Creatinine (0.66-1.25) mg/dL Glucose (74-99) mg/dL POC Glucose (mg/dL) 160 H (75-99) mg/dL Microbiology - Last 24 Hours (Table) 07/20/16 11:55 Blood Culture - Preliminary Blood No Growth after 24 hours Chest x-ray: report reviewed CT Scan - head: report reviewed Thrombosis Risk Factor Assmnt - DVT/VTE Prophylaxis DVT/VTE Prophylaxis: Pharmacologic Prophylaxis ordered - Choose All That Apply Any of the Below Risk Factors Present?: Yes Each Factor Represents 1 point: Sepsis (< 1month) Other Risk Factors: Yes Each Risk Factor Represents 3 Points: Age 75 years or older Other congenital or acquired thrombophilia - If yes, enter type in comment: No Thrombosis Risk Factor Assessment Total Risk Factor Score: 4 Thrombosis Risk Factor Assessment Level: Moderate Risk Assessment and Plan Plan: Impression: 1. Diabetic ketoacidosis, present on admission, suspect secondary to sepsis and poor oral intake. 2. Severe sepsis suspected secondary to urinary tract infection in a patient with chronic urinary retention who self caths at home. Urine and blood culture pending. Continue IV ceftriaxone. 3. Acute kidney failure suspect secondary to intravascular volume depletion secondary to dehydration. Creatinine 1.29 from 1.43 yesterday. 4. Anemia of chronic disease suspect secondary to renal disease. Continue to monitor. 5. Diabetes mellitus, insulin requiring, uncontrolled. Hemoglobin A1c 13.5. ContinueLantus 18 units subcu at bedtime, Humalog 6 units before meals 3 times a day, Humalog sliding scale, consistent carbohydrate diet. Consult commercial attache in place. 6. Acute on chronic upper and lower left extremity weakness, present on admission. Report from recent ultrasound carotid Doppler requested. Patient may benefit from carotid CTA. Consult neurology. 7. Bilateral carotid disease. 8. Coronary artery disease with previous stent placement and history of coronary artery bypass grafting. 9. Chronic kidney disease stage III, secondary to diabetic kidney disease with baseline creatinine in the range of 1.2-1.4.. 10. History of cerebrovascular accident and transient ischemic attack. Continue aspirin and Plavix. 11. History of chronic diastolic congestive heart failure. 12. History of recent urinary tract infection with sepsis with Klebsiella pneumoniae.of urinary tract infection with sepsis. 13. Hypertension with chronic kidney disease. Continue Coreg 12.5 mg by mouth daily, Norvasc 10 mg daily. 14. Chronic diastolic congestive heart failure. Last known ejection fraction 50%. Lasix currently on hold for acute renal failure. 15. Hyperlipidemia. Continue Lipitor 40 mg PO daily. 16. 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 16. History of neurogenic bladder and urinary retention from previous CVA with self-catheterization. Alves catheter has been placed. 17. History of remote alcohol abuse. 18. DVT prophylaxis. Continue subcu heparin. Continue bilateral МАРИНА hose. 19. GI prophylaxis. Continue Pepcid. 20. Repeat CBC and BMP in a.m. The above impression and plan have been discussed and directed by Dr. Duff. Beatrice KIMBROUGH acting as scribe for Dr. Duff.
[2016-07-21] MEDS ORDERED: diphenhydrAMINE 50 MG/ML 1 ML VIAL IVP ONE (15:19)
[2016-07-21] MEDS ORDERED: FAMOTIDINE 20 MG/2 ML VIAL IV ONE (15:19)
[2016-07-21] MEDS ORDERED: methylPREDNISolone SOD SUCCI 125 MG/2 ML VIAL IV ONE (15:19)
[2016-07-21] MEDS ORDERED: diphenhydrAMINE 50 MG/ML 1 ML VIAL ONE (15:43)
[2016-07-21 17:15] LABS: Glucose,Whole Blood 157 mg/dL (75-99)
--- NOTE | 2016-07-21 17:17 | CT ---
EXAMINATION TYPE: CT angio neck DATE OF EXAM: 07/21/2016 5:10 PM COMPARISON: NONE HISTORY: Patient poor historian. Patient has carotid stenosis. CT DLP: 349 mGycm CONTRAST: CTA cervical carotids is performed with IV Contrast, patient injected with 65 mL of Visipaque 320. Contrast CTA of the cervical carotids was performed 3-D reconstruction imaging obtained at a separate workstation. Right carotid system: Mild plaque is seen of the right common carotid artery. There is moderate plaq ue also noted at the carotid bulb and proximal right ICA. Estimated diameter reduction is greater th an 70%. ECA is patent. Right vertebral artery appears unremarkable. Left carotid system: Mild plaque is seen of the left common carotid artery. There is mild plaque als o noted at the carotid bulb. Estimated diameter reduction is 50%. ECA is patent. Left vertebral ar maria esther appears unremarkable. Emphysematous changes upper lobes. IMPRESSION: 1. Estimated diameter reduction Right ICA 70% 2. Estimated diameter reduction Left ICA 50%
--- NOTE | 2016-07-21 18:23 | P.CNNES ---
History of Present Illness Consult date: 07/21/16 Reason for Consult: Patient being evaluated for left-sided weakness. History of Present Illness: This patient is a 80-year-old right-handed white male who was admitted to Hospital with symptoms of acute on chronic left sided weakness. Apparently he has a complicated past medical history with multiple medical conditions including severe diabetes mellitus and coronary artery disease. Patient was brought into the emergency room yesterday and was noted to be in DKA. His blood sugars were over 600. He was treated and admitted to the hospital. He complained of left arm and leg weakness as well as increasing paresthesias involving the left arm and leg. He states he was unable to walk with his walker for 2 days prior to admission. He states that there was weakness in the leg as well as severe pain. He also had some amount of slurred speech off and on over the last 24 hours. Patient does have a history of bilateral carotid artery disease. He was seen by vascular surgery who recommended a CTA angiogram. This was completed today and the right ICA 70% stenosis in the left ICA 50% stenosis. Patient was sent for a computed tomography scan of the brain on admission through the ER. CAT scan revealed age-related atrophy and chronic small vessel ischemic changes. No acute intracranial process was detected. Patient states he continues to have left arm and leg weakness. There is also numbness associated with the symptom. He does have uncontrolled diabetes mellitus and his hemoglobin A1c this admission is noted to be 13.5. Patient apparently has not been compliant in controlling his diabetes at home. He does have several stroke risk factors. He has a history of having undergone 5 vessel coronary artery bypass grafting in the past. He does complain of pain in the left leg which may be secondary to diabetic neuropathy. He does not experience the same pain in the right leg. He is unable to take Neurontin due to side effects. Apparently the pain is been treated with Narco. Patient does have history of previous stroke which she suffered several years ago. He has been on Plavix and aspirin for secondary stroke prevention. He should continue on the same. He does require further diabetic education to bring his blood sugars under better control. This may be contributing to diabetic neuropathy pain. Given his multiple stroke risk factors would recommend MRI of the brain for further evaluation. His overall prognosis at this time remains very guarded. Patient is now admitted and neurology has been consulted for further evaluation and recommendations. Review of Systems Constitutional: Denies chills, Denies fever Eyes: denies blurred vision, denies pain Ears, nose, mouth and throat: Denies headache, Denies sore throat Cardiovascular: Denies chest pain, Denies shortness of breath Respiratory: Denies cough Gastrointestinal: Denies abdominal pain, Denies diarrhea, Denies nausea, Denies vomiting Musculoskeletal: Denies myalgias Integumentary: Denies pruritus, Denies rash Neurological: Reports burning pain, Reports tingling, Denies numbness, Denies weakness Psychiatric: Denies anxiety, Denies depression Endocrine: Denies fatigue, Denies weight change Past Medical History Past Medical History: Coronary Artery Disease (CAD), Chest Pain / Angina, CVA/ TIA, Diabetes Mellitus, Hypertension, Myocardial Infarction ([place]), Renal Disease , Vascular Disorder Additional Past Medical History / Comment(s): URINARY RETENTION pt thinks possible from effects from stroke as well as L arm/leg weakness, REQUIRING SELF CATH, IDDM type II, bilateral NEUROPATHY hands and feet, PVD, [place]'S with last one being 04/09/16, CKD stage III, normocytic anemia, UTIs. Last Myocardial Infarction Date:: 2016 History of Any Multi-Drug Resistant Organisms: None Reported Past Surgical History: Coronary Bypass/CABG, Heart Catheterization, Heart Catheterization With Stent Additional Past Surgical History / Comment(s): 5 VESSLEL BYPASS 2006, stent RT leg , arthrectomy/stent March 2016, bilateral cataract removal with lens implants. Past Anesthesia/Blood Transfusion Reactions: No Reported Reaction Date of Last Stent Placement:: 2016 Past Psychological History: No Psychological Hx Reported Additional Psychological History / Comment(s): Pt resides with his spouse. His rgvmtu-zu-[id number] is their corporate relations manager and is with them daily. Pt normally can ambulate with a walker. He no longer drives. His corporate relations manager takes him to app. His corporate relations manager manages his medications. Smoking Status: Former smoker Past Alcohol Use History: Rare Additional Past Alcohol Use History / Comment(s): smoked for many yrs- quit smoking 2008- smoked 2 PPD. Heavy etoh in the past - not current-quit 40 years ago. Past Drug Use History: None Reported - Past Family History Brother(s) Family Medical History: Myocardial Infarction ([place]) Mother Family Medical History: Diabetes Mellitus Additional Family Medical History / Comment(s): AT AGE 93 Father Family Medical History: Myocardial Infarction ([place]) Additional Family Medical History / Comment(s): AT AGE 83 FROM [place]. Medications and Allergies Home Medications Medication Instructions Recorded Confirmed Type Furosemide [Lasix] 40 mg PO DAILY 04/10/16 07/20/16 History HYDROcodone/APAP 5-325MG [[place] 1 tab PO Q8H PRN 07/20/16 07/20/16 History 5-325] Allergies Allergy/AdvReac Type Severity Reaction Status Date / Time Iodinated Contrast Media - AdvReac Rash/Hives Verified 07/20/16 11:07 Oral and Physical Examination - Vital Signs Vital Signs: Vital Signs Temp Pulse Resp BP Pulse Ox 07/21/16 15:34 97 F L 77 17 133/76 95 07/21/16 15:23 70 17 07/21/16 11:52 70 17 95/50 95 07/21/16 08:00 96.8 F L 73 18 132/56 96 07/21/16 04:00 97.1 F L 75 16 130/61 94 L 07/21/16 00:00 97.5 F L 72 17 103/55 97 07/20/16 20:00 97.4 F L 68 16 140/67 97 Intake and Output 07/21/16 07/21/16 07/21/16 06:59 14:59 22:59 Intake Total 800 Output Total 800 Balance -800 800 Intake: Intake, IV Titration 80 Amount Sodium Chloride 0.9% 1, 80 000 ml @ 20 mls/hr IV . Q24H [facility] Rx#:[id number] Oral 720 Output: Urine 800 Other: Voiding Method Indwelling Catheter Indwelling Catheter Indwelling Catheter # Voids 1 - Constitutional General appearance: average body habitus, cooperative - EENT EENT: PERRL, mucous membranes moist - Respiratory Respiratory: lungs clear, normal breath sounds - Cardiovascular Cardiovascular: regular rate, normal S1, normal S2 Extremities: no peripheral edema bilaterally - Gastrointestinal Gastrointestinal: normoactive bowel sounds - Integumentary Integumentary: normal - Neurologic Cranial nerve examination: PERRL, EOMI, VFF, V1/V2/V3 grossly intact, face symmetric, tongue midline, intact gag reflex, intact corneal reflex, normal palatal elevation Speech examination: intact Sensorimotor examination: intact Detailed motor examination: grossly full strength in all extremities Reflex and gait examination: intact Reflexes: 1+: ankle, bicep, knee, tricep - Musculoskeletal Musculoskeletal: no pain - Psychiatric Psychiatric: mood/affect appropriate, cooperative Results - Laboratory Findings CBC and BMP: 07/21/16 09:29 07/21/16 09:29 Abnormal Lab Findings: Abnormal Labs 07/20/16 07/20/16 07/20/16 12:03 12:34 13:03 WBC RBC Hgb Hct Neutrophils # Chloride BUN Creatinine Glucose POC Glucose (mg/dL) 554 H 499 H 442 H 07/20/16 07/20/16 07/20/16 13:24 14:00 14:04 WBC RBC Hgb Hct Neutrophils # Chloride BUN 67 H Creatinine 1.68 H Glucose 330 H POC Glucose (mg/dL) 396 H 360 H 07/20/16 07/20/16 07/20/16 15:11 15:58 16:26 WBC RBC Hgb Hct Neutrophils # Chloride BUN Creatinine Glucose POC Glucose (mg/dL) 290 H 286 H 249 H 07/20/16 07/20/16 07/21/16 18:16 21:32 06:18 WBC RBC Hgb Hct Neutrophils # Chloride BUN 62 H Creatinine 1.43 H Glucose 246 H POC Glucose (mg/dL) 171 H 122 H 07/21/16 07/21/16 07/21/16 09:29 09:29 11:32 WBC 11.7 H RBC 3.84 L Hgb 10.6 L Hct 31.4 L Neutrophils # 9.0 H Chloride 108 H BUN 47 H Creatinine 1.29 H Glucose 154 H POC Glucose (mg/dL) 160 H Assessment and Plan (1) Acute right arterial ischemic stroke, MCA (middle cerebral artery) Status: Acute Code(s): I63.511 - CEREB INFRC D/T UNSP OCCLS OR STENOS OF RIGHT MID CEREB ART (2) Diabetic ketoacidosis Status: Acute Code(s): E13.10 - OTH DIABETES MELLITUS WITH KETOACIDOSIS WITHOUT COMA (3) Weakness of left side of body Status: Acute Code(s): R53.1 - WEAKNESS (4) Diabetes mellitus Status: Acute Code(s): E11.9 - TYPE 2 DIABETES MELLITUS WITHOUT COMPLICATIONS (5) Neuropathy Status: Acute Code(s): G62.9 - POLYNEUROPATHY, UNSPECIFIED Plan: This patient is a 80-year-old male who was admitted hospital with symptoms of acute on chronic worsening of left-sided weakness. He complained of left leg and arm weakness as well as numbness mostly involving his left lower extremity. He has a history of uncontrolled diabetes mellitus. His hemoglobin A1c on admission was 13.5. In admission he was found to have evidence of diabetic ketoacidosis with blood sugars over 600. Apparently he has been noncompliant in taking his diabetic medications at home. He underwent a computed tomography scan of the brain which failed to reveal any acute changes. He underwent a CTA angiogram of the neck today but results are as noted above. Patient continues to have symptoms of left-sided leg weakness and numbness. As noted computed tomography scan of the brain failed to reveal any acute stroke or hemorrhage. We would recommend MRI of the brain for further evaluation. As a history of previous stroke and should continue on Plavix and aspirin for secondary stroke prevention. Would recommend very tight control of his diabetes and blood sugars. He had been candidate for diabetic education. Patient has been seen by vascular surgery and their recommendations have been noted. Will await further recommendations from cardiology. His overall prognosis at this time remains very guarded. Time with Patient: Greater than 30
[2016-07-21] MEDS: INSULIN GLARGINE 100 UNIT/ML 10 ML VIAL SQ SCH (20:28)
[2016-07-21 21:24] LABS: Glucose,Whole Blood 335 mg/dL (75-99)
[2016-07-22] MEDS: SODIUM CHLORIDE 0.9% 1,000 ML IV SCH ×2 (05:56→21:02)
[2016-07-22 06:30] LABS: Glucose,Whole Blood 311 mg/dL (75-99)
[2016-07-22] MEDS: CARVEDILOL 12.5 MG TAB PO SCH ×2 (06:51→17:08)
[2016-07-22] MEDS: INSULIN LISPRO (humaLOG) 300 UNIT/3 ML VIAL SQ SCH ×7 (06:52→20:54)
[2016-07-22] MEDS: CLOPIDOGREL 75 MG TAB PO SCH (07:51)
[2016-07-22] MEDS: ATORVASTATIN 40 MG TAB PO SCH (07:51)
[2016-07-22] MEDS: HEPARIN SODIUM,PORCINE 5,000 UNIT/ML 1 ML VIAL SQ SCH ×2 (07:51→20:53)
[2016-07-22] MEDS: amLODIPine 10 MG TAB PO SCH (07:51)
[2016-07-22] MEDS: ISOSORBIDE MONONITRATE ER 30 MG TAB.ER.24H PO SCH (07:51)
[2016-07-22] MEDS: FAMOTIDINE 20 MG TAB PO SCH (07:52)
--- NOTE | 2016-07-22 11:47 | MR ---
EXAMINATION TYPE: MR brain wo con DATE OF EXAM: 07/22/2016 11:32 AM. COMPARISON: Previous study dated 02/18/2014. HISTORY: Left-sided weakness. Technique: Multiplanar, multiecho imaging of the brain was obtained without intravenous contrast. FINDINGS: There are generalized changes of sulcal prominence and ventriculomegaly, compatible with a trophic change. Midline structures are unremarkable. There is a normal craniocervical junction. Echoplanar diffusion imaging is normal. There are normal vascular flow voids. The orbits are unremarkable. There is no evidence of a CP angle mass lesion. There is evidence of a left occipital infarct. This is unchanged from previous. A right thalamic lacu luca infarct is less obvious on today's examination. There is both confluent and punctate periventricu lar white matter change. This has not changed appreciably from the previous study. There is no mass e ffect, midline shift or intracranial blood. IMPRESSION: 1. NO ACUTE INTRACRANIAL ABNORMALITY. 2. EVIDENCE OF OLD INFARCTS IN THE LEFT OCCIPITAL LOBE WELL THE RIGHT THALAMUS. 3. ATROPHIC CHANGE. 4. BOTH PUNCTATE AND CONFLUENT PERIVENTRICULAR WHITE MATTER CHANGE COMPATIBLE WITH A COMBINATION OF S MALL VESSEL DISEASE AND CHRONIC ISCHEMIC CHANGE.
[2016-07-22 11:49] LABS: Glucose,Whole Blood 355 mg/dL (75-99)
[2016-07-22 12:38] LABS: Anion Gap 14 mmol/L; Blood Urea Nitrogen 42 mg/dL (9-20); Calcium 9.6 mg/dL (8.4-10.2); Carbon Dioxide 20 mmol/L (22-30); Chloride 106 mmol/L (98-107); Glucose 346 mg/dL (74-99); Non-African American GFR(MDRD) 53 (>60 ml/min/1.73 sqM); Sodium 140 mmol/L (137-145)
--- NOTE | 2016-07-22 13:12 | P.PN ---
Subjective Principal diagnosis: Left-sided weakness This gentleman is currently sitting up in bed in no apparent distress. Denies any questions or concerns at this point. Objective - Vital Signs Vital signs: Vital Signs Temp 97 F L 07/22/16 07:48 Pulse 75 07/22/16 11:49 Resp 16 07/22/16 11:49 BP 135/77 07/22/16 11:49 Pulse Ox 96 07/22/16 11:49 Intake & Output 07/21/16 07/22/16 07/22/16 18:59 06:59 18:59 Intake Total 800 450 480 Balance 800 450 480 Weight 58.967 kg Intake: Intake, IV Titration 80 210 Amount Sodium Chloride 0.9% 1, 80 160 000 ml @ 20 mls/hr IV . Q24H [facility] Rx#:[id number] cefTRIAXone 1,000 mg In 50 Sodium Chloride 0.9% 50 ml @ 100 mls/hr IVPB Q12HR [facility] Rx#:[id number] Oral 720 240 480 Other: Voiding Method Indwelling Catheter Indwelling Catheter Indwelling Catheter - Constitutional General appearance: Present: cooperative, no acute distress - Respiratory Details: On sounds diminished bilaterally. Respirations even, nonlabored. Currently on room air. - Cardiovascular Details: S1, S2 present. Regular rate and rhythm, normal sinus rhythm on telemetry. - Gastrointestinal Gastrointestinal Comment(s): Abdomen soft, nontender, nondistended. Active bowel sounds 4 quadrants. Tolerating diet. - Genitourinary Genitourinary Comment(s): Leak present draining clear, yellow urine. - Musculoskeletal Musculoskeletal: Present: strength equal bilaterally - Psychiatric Psychiatric Comment(s): Alert and oriented to person, place. Unsure of date. Psychiatric: Present: appropriate affect, intact judgment & insight - Allied health notes Allied health notes reviewed: nursing - Labs CBC & Chem 7: 07/21/16 09:29 07/21/16 09:29 Labs: Abnormal Lab Results - Last 24 Hours (Table) 07/21/16 07/21/16 07/22/16 Range/Units 17:03 21:22 06:28 POC Glucose (mg/dL) 157 H 335 H 311 H (75-99) mg/dL 07/22/16 Range/Units 11:47 POC Glucose (mg/dL) 355 H (75-99) mg/dL Microbiology - Last 24 Hours (Table) 07/20/16 11:55 Blood Culture - Preliminary Blood No Growth after 24 hours - Imaging and Cardiology CTA of the neck reviewed. Carotid Dopplers from cardiology office dated January 2016 reviewed. Assessment and Plan (1) Weakness of left side of body Status: Acute Plan: The patient was seen and examined. He is currently doing well, states he's feeling much better than when he came in. The plan was discussed with Dr. Neff. Carotid duplex from cardiology office in January 2016 was reviewed. CTA of the neck was reviewed. We feel that this patient has other medical problems which need to be addressed at this time, however the patient should follow up with Dr. Neff one week after discharge secondary to the findings on the CTA of his neck. His discharge plan was updated as such. Time with Patient: Greater than 30
[2016-07-22 13:41] LABS: Basophils % (A) 0 %; CH 27.1; CHCM 32.2; Eosinophils % (A) 0 %; HCT 35.3 % (39.0-53.0); HGB 11.7 gm/dL (13.0-17.5); Luc # (Auto) 0.08; Luc % (Auto) 1; Lymphocytes # (A) 1.1 k/uL (1.0-4.8); Lymphocytes % (A) 6 %; MCH 27.9 pg (25.0-35.0); MCV 84.5 fL (80.0-100.0); Mean Platelet Volume 7.2; Monocytes # (A) 0.6 k/uL (0-1.0); Monocytes % (A) 3 %; Neutrophils % (A) 90 %; RBC 4.17 m/uL (4.30-5.90); RDW 13.9 % (11.5-15.5); WBC 17.8 k/uL (3.8-10.6); WBC (Perox) 17.59
--- NOTE | 2016-07-22 14:52 | P.PN ---
Subjective A pleasant 80-year-old gentleman with a past medical history significant for CAD and prior bypass and stenting hypertension, and dyslipidemia ABDs. Send to the emergency room Department with complaints of left-sided weakness. He also noticed some slurred speech. Patient is known to have carotid artery disease last carotid duplex study performed in January 2016 showed intermediate bilateral carotid disease. He underwent a carotid CTA that showed estimated reduction of the right ICA to be 70% and left ICA to be 50 %. Upon examination today, patient is resting comfortably in bed. He says he feels quite a bit better. He feels his strength is improving. Objective - Vital Signs Vital signs: Vital Signs Temp 97 F L 07/22/16 07:48 Pulse 75 07/22/16 11:49 Resp 16 07/22/16 11:49 BP 135/77 07/22/16 11:49 Pulse Ox 96 07/22/16 11:49 Intake & Output 07/21/16 07/22/16 07/22/16 18:59 06:59 18:59 Intake Total 440 495 2256 Balance 364 284 0398 Weight 58.967 kg Intake: Intake, IV Titration 80 210 50 Amount Sodium Chloride 0.9% 1, 80 160 000 ml @ 20 mls/hr IV . Q24H [facility] Rx#:[id number] cefTRIAXone 1,000 mg In 50 50 Sodium Chloride 0.9% 50 ml @ 100 mls/hr IVPB Q12HR [facility] Rx#:[id number] Oral 720 240 960 Other: Voiding Method Indwelling Catheter Indwelling Catheter Indwelling Catheter - Exam PHYSICAL EXAMINATION: HEENT: Head is atraumatic, normocephalic. Pupils equal, round. Neck is supple. There is no elevated jugular venous pressure. HEART EXAMINATION: Heart sounds regular, S1 and S2 normal. No murmur or gallop heard. CHEST EXAMINATION: Lungs are clear to auscultation and precussion. No chest wall tenderness is noted on palpation or with deep breathing. ABDOMEN: Soft, nontender. Bowel sounds are heard. No organomegaly noted. EXTREMITIES: 2+ peripheral pulses with no evidence of peripheral edema and no calf tenderness noted. NEUROLOGIC patient is awake, alert and oriented x3. . - Labs CBC & Chem 7: 07/22/16 12:15 07/22/16 12:15 Labs: Abnormal Lab Results - Last 24 Hours (Table) 07/21/16 07/21/16 07/22/16 Range/Units 17:03 21:22 06:28 WBC (3.8-10.6) k/uL RBC (4.30-5.90) m/uL Hgb (13.0-17.5) gm/dL Hct (39.0-53.0) % Neutrophils # (1.3-7.7) k/uL Carbon Dioxide (22-30) mmol/L BUN (9-20) mg/dL Creatinine (0.66-1.25) mg/dL Glucose (74-99) mg/dL POC Glucose (mg/dL) 157 H 335 H 311 H (75-99) mg/dL 07/22/16 07/22/16 07/22/16 Range/Units 11:47 12:15 12:15 WBC 17.8 H (3.8-10.6) k/uL RBC 4.17 L (4.30-5.90) m/uL Hgb 11.7 L (13.0-17.5) gm/dL Hct 35.3 L (39.0-53.0) % Neutrophils # 16.0 H (1.3-7.7) k/uL Carbon Dioxide 20 L (22-30) mmol/L BUN 42 H (9-20) mg/dL Creatinine 1.30 H (0.66-1.25) mg/dL Glucose 346 H (74-99) mg/dL POC Glucose (mg/dL) 355 H (75-99) mg/dL Microbiology - Last 24 Hours (Table) 07/20/16 11:55 Blood Culture - Preliminary Blood No Growth after 48 hours Assessment and Plan Plan: Assessment and plan #1 left-sided weakness #2 Bilateral carotid disease, right greater than left #3 coronary artery disease #4 diabetes From a cardiac standpoint, we agree that further follow-up as an outpatient regarding CTA of the carotids is necessary. Patient may require carotid stenting in the future. Further recommendations to follow. MARKETING TECHNOLOGY COORDINATOR note has been reviewed, I agree with a documented findings and plan of care. Patient was seen and examined.
--- NOTE | 2016-07-22 16:06 | P.PN ---
Subjective Patient is a 80-year-old male, patient of Dr. Duff in the outpatient setting, with complex medical history significant for coronary artery disease with stent placement and previous coronary artery bypass surgery, myocardial infarction, neuropathy, peripheral vascular disease, urinary tract infection with sepsis, chronic kidney disease stage III, anemia of chronic disease, CVA and TIA, diabetes mellitus type 2, hypertension, urinary retention and self catheterization. Patient presented to the emergency department with complaints of left upper and lower extremity weakness and numbness more so in the left leg. Patient does have a history of chronic weakness to left upper and lower extremity from previous CVA. CT of brain with no acute process. Chest x-ray with no evidence of acute cardiopulmonary process. Patient was found to have evidence of a urinary tract infection, diabetic ketoacidosis, dehydration, and severe sepsis. Patient was started on the DKA protocol, fluid resuscitated with 2.5 L of fluids, started on IV antibiotics and admitted to the selective care unit with consult to vascular surgeon and cardiology service. Upon examination, patient is just getting back from ambulating with a walker in the room requiring 2 person assist. Patient complains of left lower extremity numbness and burning. Patient states he does have a history of neuropathy and is being treated with Neurontin. Patient denies chills, fevers, nausea, vomiting, shortness of breath, chest pain, or abdominal pain. Patient reports decreased appetite for about a week. Patient is afebrile. Blood pressure 132/ 56. Oxygen 96% on room air. WBC decreased to 11.7. Hemoglobin 10.6 from 12 yesterday. BUN and creatinine improved from yesterday. Patient has been transitioned off the DKA protocol to subcu insulin. Preliminary urine and blood cultures pending. Patient has been evaluated by Dr. Neff from vascular service who recommended a carotid duplex if not already done. Per chart, had a carotid artery duplex done in January 2016 with evidence of an intermediate bilateral carotid disease; patient recently underwent another carotid Doppler with results pending from sheeter waxer operator office. Broadband Engineer recommended that patient undergo a carotid CTA. Neurology consult in place, recommendations pending. 07/22/2016: Patient is evaluated on selective care unit. Patient continues to complain of left lower extremity numbness and burning. Patient reports overall improvement since admission. No new complaints overnight. Patient did undergo a CTA of the carotids with evidence of 70% stenosis to the right ICA and 50% stenosis to the left ICA. MRI of brain with no evidence of intracranial abnormality; evidence of old infarcts in the left occipital lobe as well as the right; atrophic change; small vessel disease and chronic ischemic changes. Dr. Neff from cardiovascular service has evaluated patient and is recommending the patient follow-up one week after discharge to discuss findings on CTA of neck as patient may require carotid stenting in the future. Labs reviewed: WBC increased to 17.8; hemoglobin stable at 11.7; creatinine stable at 1.3; blood sugars elevated in the 300s; preliminary urine culture with gram-negative bacilli, strep agalactiae. Afebrile. Blood pressure 135/77. 98% on room air. Did have a discussion with mother who states the patient is unable to manage insulin pump at home and she has concerns that he is unable to self cath at home secondary to weakness. Objective - Vital Signs Vital signs: Vital Signs Temp 97.3 F L 07/22/16 15:26 Pulse 80 07/22/16 15:26 Resp 16 07/22/16 15:26 BP 135/66 07/22/16 15:26 Pulse Ox 98 07/22/16 15:26 Intake & Output 07/21/16 07/22/16 07/22/16 18:59 06:59 18:59 Intake Total 274 001 0774 Balance 979 604 3873 Weight 58.967 kg Intake: Intake, IV Titration 80 210 50 Amount Sodium Chloride 0.9% 1, 80 160 000 ml @ 20 mls/hr IV . Q24H [facility] Rx#:[id number] cefTRIAXone 1,000 mg In 50 50 Sodium Chloride 0.9% 50 ml @ 100 mls/hr IVPB Q12HR [facility] Rx#:[id number] Oral 720 240 960 Other: Voiding Method Indwelling Catheter Indwelling Catheter Indwelling Catheter - Exam GENERAL: Pt awake and alert, frail looking, in no acute distress. HEAD: Atraumatic, normocephalic. EYES: Pupils equal, round, and reactive to light, extraocular movements intact, sclera anicteric, conjunctiva are normal. ENT: Moist mucous membranes. NECK:Supple without lymphadenopathy or JVD. LUNGS: Breath sounds clear to auscultation bilaterally. No wheezes, rales, or rhonchi. HEART: Heart S1, S2, no S3 or S4. Regular rate and rhythm. No murmurs, rubs or gallops. ABDOMEN: Soft, nontender, nondistended, normoactive bowel sounds. No guarding, no rebound. No masses or organomegaly appreciated. EXTREMITIES: 2+ peripheral pulses. No edema.No calf tenderness. NEUROLOGICAL: Pt oriented x 3. No gross focal deficits. Decreased strength and sensation to left lower extremity. PSYCH: Normal mood, normal affect. SKIN: Warm, dry, intact. Normal turgor. No rashes or lesions. - Labs CBC & Chem 7: 07/22/16 12:15 07/22/16 12:15 Labs: Abnormal Lab Results - Last 24 Hours (Table) 07/21/16 07/21/16 07/22/16 Range/Units 17:03 21:22 06:28 WBC (3.8-10.6) k/uL RBC (4.30-5.90) m/uL Hgb (13.0-17.5) gm/dL Hct (39.0-53.0) % Neutrophils # (1.3-7.7) k/uL Carbon Dioxide (22-30) mmol/L BUN (9-20) mg/dL Creatinine (0.66-1.25) mg/dL Glucose (74-99) mg/dL POC Glucose (mg/dL) 157 H 335 H 311 H (75-99) mg/dL 07/22/16 07/22/16 07/22/16 Range/Units 11:47 12:15 12:15 WBC 17.8 H (3.8-10.6) k/uL RBC 4.17 L (4.30-5.90) m/uL Hgb 11.7 L (13.0-17.5) gm/dL Hct 35.3 L (39.0-53.0) % Neutrophils # 16.0 H (1.3-7.7) k/uL Carbon Dioxide 20 L (22-30) mmol/L BUN 42 H (9-20) mg/dL Creatinine 1.30 H (0.66-1.25) mg/dL Glucose 346 H (74-99) mg/dL POC Glucose (mg/dL) 355 H (75-99) mg/dL Microbiology - Last 24 Hours (Table) 07/20/16 11:55 Blood Culture - Preliminary Blood No Growth after 48 hours Assessment and Plan Plan: Impression: 1. Diabetic ketoacidosis, present on admission, suspect secondary to sepsis and poor oral intake, resolved. 2. Severe sepsis suspected secondary to urinary tract infection in a patient with chronic urinary retention who self caths at home. Continue to follow urine culture and blood culture. Continue IV ceftriaxone. 3. Acute kidney failure suspect secondary to intravascular volume depletion secondary to dehydration, resolved. Creatinine stable at 1.3. 4. Anemia of chronic disease suspect secondary to renal disease. Continue to monitor. 5. Diabetes mellitus, insulin requiring, uncontrolled. Hemoglobin A1c 13.5. Increase Lantus to 23 units subcu at bedtime, increase Humalog to 10 units before meals 3 times a day, continue Humalog sliding scale, consistent carbohydrate diet. Consult asthma educator in place for concerns of inability to take care of insulin pump at home. 6. Acute on chronic upper and lower left extremity weakness, present on admission. MRI of brain with no acute process. Neurology on consult, recommendations noted. 7. Bilateral carotid artery disease, right greater than left. Follow-up with Dr. Neff in the outpatient setting for possible stenting. 8. Coronary artery disease with previous stent placement and history of coronary artery bypass grafting. 9. Chronic kidney disease stage III, secondary to diabetic kidney disease with baseline creatinine in the range of 1.2-1.4.. 10. History of cerebrovascular accident and transient ischemic attack. Continue aspirin and Plavix. 11. History of chronic diastolic congestive heart failure. 12. History of recent urinary tract infection with sepsis with Klebsiella pneumoniae.of urinary tract infection with sepsis. 13. Hypertension with chronic kidney disease. Continue Coreg 12.5 mg by mouth daily, Norvasc 10 mg daily. 14. Chronic diastolic congestive heart failure. Last known ejection fraction 50%. Lasix currently on hold for acute renal failure. 15. Hyperlipidemia. Continue Lipitor 40 mg PO daily. 16. 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 Continue Neurontin. 16. History of neurogenic bladder and urinary retention from previous CVA with self-catheterization. Alves catheter has been placed. 17. History of remote alcohol abuse. 18. DVT prophylaxis. Continue subcu heparin. Continue bilateral МАРИНА hose. 19. GI prophylaxis. Continue Pepcid. 20. Repeat CBC and BMP in a.m. The above impression and plan have been discussed and directed by Dr. Duff. Beatrice KIMBROUGH acting as scribe for Dr. Duff.
[2016-07-22 16:31] LABS: Glucose,Whole Blood 350 mg/dL (75-99)
[2016-07-22] MEDS: HYDROcodone/APAP 5-325MG 1 EACH TAB PO PRN (17:07)
--- NOTE | 2016-07-22 17:18 | P.PN ---
Subjective This patient is a 80-year-old right-handed white male who was seen in neurology consultation yesterday for evaluation of left-sided weakness and some slurred speech. Patient was admitted for possibility of TIA versus stroke diagnosis. He was sent for MRI of the brain today which was completed and reveals no evidence of acute intracranial abnormality. There was evidence of an old left occipital lobe stroke as well as an old right thalamic infarct. Confluent periventricular white matter ischemic changes were noted. We reviewed the results of the MRI today with the patient. He has a known history of carotid artery disease and his last carotid duplex study performed in January 2016 revealed intermediate bilateral carotid disease. He underwent a carotid CTA Thang Marcelino study which revealed right ICA to be 70% and left ICA to be 50% stenosis. He is being followed by Dr. Asencio from vascular surgery for this condition. Patient has noted some improvement with this left-sided weakness today. We reviewed the MRI once again which fails to reveal any evidence of acute stroke. Patient will be following up with cardiology and vascular surgery in the outpatient setting. Patient continues to have difficulty with left lower extremity numbness and burning pain. This is likely secondary to his neuropathy. He should follow-up with vascular surgery. We are recommending tight control of his diabetes. He does have an insulin pump and may require reeducation. We will continue close neurological follow-up for the patient. His overall prognosis remains guarded. Objective - Vital Signs Vital signs: Vital Signs Temp 97 F L 07/22/16 07:48 Pulse 75 07/22/16 11:49 Resp 16 07/22/16 14:55 BP 135/77 07/22/16 11:49 Pulse Ox 96 07/22/16 11:49 Intake & Output 07/21/16 07/22/16 07/22/16 18:59 06:59 18:59 Intake Total 519 641 5914 Balance 573 312 6719 Weight 58.967 kg Intake: Intake, IV Titration 80 210 50 Amount Sodium Chloride 0.9% 1, 80 160 000 ml @ 20 mls/hr IV . Q24H [facility] Rx#:[id number] cefTRIAXone 1,000 mg In 50 50 Sodium Chloride 0.9% 50 ml @ 100 mls/hr IVPB Q12HR [facility] Rx#:[id number] Oral 720 240 960 Other: Voiding Method Indwelling Catheter Indwelling Catheter Indwelling Catheter - Exam Physical examination: PHYSICAL EXAMINATION: Patient is resting comfortably in bed. VITAL SIGNS: Blood pressure is [135/77]. Heart rate is [75]. Respiration is [16] . Temperature is [97.0]. HEENT: Head is atraumatic, neck is supple, there were no carotid bruits. CHEST: Lungs are clear to auscultation and percussion. CARDIAC: S1, S2 normal rate and rhythm. There is no murmur. ABDOMEN: Soft and nontender. Bowel sounds are present. EXTREMITIES: There is no pedal edema. Peripheral pulses are present. Neurological examination: Patient's neurological examination is unchanged from yesterday. He continues to experience pain in his left lower extremity. - Labs CBC & Chem 7: 07/22/16 12:15 07/22/16 12:15 Labs: Abnormal Lab Results - Last 24 Hours (Table) 07/21/16 07/21/16 07/22/16 Range/Units 17:03 21:22 06:28 WBC (3.8-10.6) k/uL RBC (4.30-5.90) m/uL Hgb (13.0-17.5) gm/dL Hct (39.0-53.0) % Neutrophils # (1.3-7.7) k/uL Carbon Dioxide (22-30) mmol/L BUN (9-20) mg/dL Creatinine (0.66-1.25) mg/dL Glucose (74-99) mg/dL POC Glucose (mg/dL) 157 H 335 H 311 H (75-99) mg/dL 07/22/16 07/22/16 07/22/16 Range/Units 11:47 12:15 12:15 WBC 17.8 H (3.8-10.6) k/uL RBC 4.17 L (4.30-5.90) m/uL Hgb 11.7 L (13.0-17.5) gm/dL Hct 35.3 L (39.0-53.0) % Neutrophils # 16.0 H (1.3-7.7) k/uL Carbon Dioxide 20 L (22-30) mmol/L BUN 42 H (9-20) mg/dL Creatinine 1.30 H (0.66-1.25) mg/dL Glucose 346 H (74-99) mg/dL POC Glucose (mg/dL) 355 H (75-99) mg/dL Microbiology - Last 24 Hours (Table) 07/20/16 11:55 Blood Culture - Preliminary Blood No Growth after 48 hours Assessment and Plan (1) Acute right arterial ischemic stroke, MCA (middle cerebral artery) Status: Acute Code(s): I63.511 - CEREB INFRC D/T UNSP OCCLS OR STENOS OF RIGHT MID CEREB ART (2) Diabetic ketoacidosis Status: Acute Code(s): E13.10 - OTH DIABETES MELLITUS WITH KETOACIDOSIS WITHOUT COMA (3) Weakness of left side of body Status: Acute Code(s): R53.1 - WEAKNESS (4) Diabetes mellitus Status: Acute Code(s): E11.9 - TYPE 2 DIABETES MELLITUS WITHOUT COMPLICATIONS (5) Neuropathy Status: Acute Code(s): G62.9 - POLYNEUROPATHY, UNSPECIFIED Plan: This patient is a 80-year-old gentleman who was admitted for symptoms of acute left-sided weakness and slurred speech. He was admitted for a workup for possible TIA versus stroke. He underwent a CTA angiogram results of which are noted above. He has a left ICA stenosis of 50% and right ICA stenosis of 70%. He is being followed closely by vascular surgery. They're recommending outpatient follow-up for the patient. Patient was sent for MRI of the brain today further evaluation of acute stroke. MRI reveals no acute intracranial abnormality. Old infarction in the left occipital and right thalamic region was noted. We reviewed the results of the MRI today with the patient. He is to continue with ongoing therapy both inpatient and as outpatient. We will maintain him on aspirin therapy for secondary stroke prevention. Patient's left leg pain is felt to be secondary to history of neuropathy. He may continue on gabapentin as before. We will continue close neurological follow- up with the patient during this admission.
[2016-07-22] MEDS ORDERED: INSULIN GLARGINE 100 UNIT/ML 10 ML VIAL SQ SCH ×3 (17:45→21:00)
--- NOTE | 2016-07-22 18:52 | EEG ---
DATE OF SERVICE: 07/22/2016 INDICATION FOR EXAMINATION: This patient is a 80-year-old male being evaluated for acute TIA and left-sided symptoms of weakness and numbness. AGE: 80. EEG FINDINGS: A routine 21-channel awake digital EEG recording was accomplished utilizing the 10-20 international system with bipolar and referential montages. The background activity in the most alert resting state consists of a low to medium amplitude, fairly well developed and well sustained 6 Hz activity over the posterior head regions. This posterior rhythm attenuates to eye opening. There is a small amount of low amplitude 18-20 Hz beta activity seen maximally over the anterior head regions. Muscle and movement artifact was observed on a few occasions during the tracing. Hyperventilation was not performed. Photic stimulation at flash frequencies of 2-30 Hz produced a minimal occipital driving response. No epileptiform discharges were seen. IMPRESSION: This EEG is moderately abnormal in a diffuse fashion due to slowing of the EEG background. The EEG failed to reveal any focal, lateralized or epileptiform abnormalities. Clinical correlation is recommended.
[2016-07-22 20:54] LABS: Glucose,Whole Blood 312 mg/dL (75-99)
[2016-07-23] MEDS: HYDROcodone/APAP 5-325MG 1 EACH TAB PO PRN ×2 (00:27→12:16)
[2016-07-23 05:37] LABS: Glucose,Whole Blood 286 mg/dL (75-99)
[2016-07-23 05:46] LABS: Basophils % (A) 0 %; CH 27.2; CHCM 33.4; Eosinophils # (A) 0.1 k/uL (0-0.7); Eosinophils % (A) 1 %; HCT 34.2 % (39.0-53.0); HDW 2.89; HGB 11.5 gm/dL (13.0-17.5); Luc # (Auto) 0.13; Luc % (Auto) 1; Lymphocytes # (A) 1.6 k/uL (1.0-4.8); Lymphocytes % (A) 14 %; MCH 27.7 pg (25.0-35.0); MCHC 33.8 g/dL (31.0-37.0); Mean Platelet Volume 6.9; Monocytes # (A) 0.5 k/uL (0-1.0); Monocytes % (A) 4 %; Neutrophils % (A) 80 %; RBC 4.16 m/uL (4.30-5.90); RDW 14.1 % (11.5-15.5); WBC 11.3 k/uL (3.8-10.6); WBC (Perox) 11.78
[2016-07-23 06:04] LABS: Anion Gap 9 mmol/L; Blood Urea Nitrogen 39 mg/dL (9-20); Calcium 9.5 mg/dL (8.4-10.2); Carbon Dioxide 25 mmol/L (22-30); Chloride 105 mmol/L (98-107); Glucose 287 mg/dL (74-99); Non-African American GFR(MDRD) 58 (>60 ml/min/1.73 sqM); Potassium 4.4 mmol/L (3.5-5.1); Sodium 139 mmol/L (137-145)
[2016-07-23] MEDS: INSULIN LISPRO (humaLOG) 300 UNIT/3 ML VIAL SQ SCH ×4 (07:07→12:18)
[2016-07-23] MEDS: CARVEDILOL 12.5 MG TAB PO SCH (07:07)
[2016-07-23 09:25] VITALS: RESP 18
[2016-07-23] MEDS: amLODIPine 10 MG TAB PO SCH (09:25)
[2016-07-23] MEDS: ATORVASTATIN 40 MG TAB PO SCH (09:25)
[2016-07-23] MEDS: FAMOTIDINE 20 MG TAB PO SCH (09:26)
[2016-07-23] MEDS: ISOSORBIDE MONONITRATE ER 30 MG TAB.ER.24H PO SCH (09:26)
[2016-07-23] MEDS: CLOPIDOGREL 75 MG TAB PO SCH (09:26)
[2016-07-23] MEDS: HEPARIN SODIUM,PORCINE 5,000 UNIT/ML 1 ML VIAL SQ SCH (09:26)
[2016-07-23 11:42] VITALS: BP 141/65; PULSE 65; TEMP 96.9
[2016-07-23 11:53] LABS: Glucose,Whole Blood 255 mg/dL (75-99)
--- NOTE | 2016-07-23 12:17 | P.PN ---
Subjective A pleasant 80-year-old gentleman with a past medical history significant for CAD and prior bypass and stenting hypertension, and dyslipidemia ABDs. Send to the emergency room Department with complaints of left-sided weakness. He also noticed some slurred speech. Patient is known to have carotid artery disease last carotid duplex study performed in January 2016 showed intermediate bilateral carotid disease. He underwent a carotid CTA that showed estimated reduction of the right ICA to be 70% and left ICA to be 50 %. Upon examination today, patient is resting comfortably in bed. He is quite anxious to go home. Objective - Vital Signs Vital signs: Vital Signs Temp 96.9 F L 07/23/16 11:41 Pulse 65 07/23/16 11:41 Resp 18 07/23/16 11:41 BP 141/65 07/23/16 11:41 Pulse Ox 96 07/23/16 11:41 Intake & Output 07/22/16 07/23/16 07/23/16 18:59 06:59 18:59 Intake Total 1610 750 200 Output Total 1400 Balance 1610 -650 200 Weight 58.967 kg 62.6 kg Intake: IV 90 Sodium Chloride 0.9% 1, 40 000 ml @ 20 mls/hr IV . Q24H [facility] Rx#:[id number] cefTRIAXone 1,000 mg In 50 Sodium Chloride 0.9% 50 ml @ 100 mls/hr IVPB Q12HR [facility] Rx#:[id number] Intake, IV Titration 50 Amount cefTRIAXone 1,000 mg In 50 Sodium Chloride 0.9% 50 ml @ 100 mls/hr IVPB Q12HR [facility] Rx#:[id number] Oral 1560 660 200 Output: Urine 1400 Other: Voiding Method Indwelling Catheter Indwelling Catheter Indwelling Catheter # Voids 2 - Exam PHYSICAL EXAMINATION: HEENT: Head is atraumatic, normocephalic. Pupils equal, round. Neck is supple. There is no elevated jugular venous pressure. HEART EXAMINATION: Heart sounds regular, S1 and S2 normal. No murmur or gallop heard. CHEST EXAMINATION: Lungs are clear to auscultation and precussion. No chest wall tenderness is noted on palpation or with deep breathing. ABDOMEN: Soft, nontender. Bowel sounds are heard. No organomegaly noted. EXTREMITIES: 2+ peripheral pulses with no evidence of peripheral edema and no calf tenderness noted. NEUROLOGIC patient is awake, alert and oriented x3. . - Labs CBC & Chem 7: 07/23/16 05:35 07/23/16 05:35 Labs: Abnormal Lab Results - Last 24 Hours (Table) 07/22/16 07/22/16 07/22/16 Range/Units 12:15 12:15 16:29 WBC 17.8 H (3.8-10.6) k/uL RBC 4.17 L (4.30-5.90) m/uL Hgb 11.7 L (13.0-17.5) gm/dL Hct 35.3 L (39.0-53.0) % Neutrophils # 16.0 H (1.3-7.7) k/uL Carbon Dioxide 20 L (22-30) mmol/L BUN 42 H (9-20) mg/dL Creatinine 1.30 H (0.66-1.25) mg/dL Glucose 346 H (74-99) mg/dL POC Glucose (mg/dL) 350 H (75-99) mg/dL 07/22/16 07/23/16 07/23/16 Range/Units 20:51 05:34 05:35 WBC 11.3 H (3.8-10.6) k/uL RBC 4.16 L (4.30-5.90) m/uL Hgb 11.5 L (13.0-17.5) gm/dL Hct 34.2 L (39.0-53.0) % Neutrophils # 9.0 H (1.3-7.7) k/uL Carbon Dioxide (22-30) mmol/L BUN (9-20) mg/dL Creatinine (0.66-1.25) mg/dL Glucose (74-99) mg/dL POC Glucose (mg/dL) 312 H 286 H (75-99) mg/dL 07/23/16 07/23/16 Range/Units 05:35 11:46 WBC (3.8-10.6) k/uL RBC (4.30-5.90) m/uL Hgb (13.0-17.5) gm/dL Hct (39.0-53.0) % Neutrophils # (1.3-7.7) k/uL Carbon Dioxide (22-30) mmol/L BUN 39 H (9-20) mg/dL Creatinine (0.66-1.25) mg/dL Glucose 287 H (74-99) mg/dL POC Glucose (mg/dL) 255 H (75-99) mg/dL Microbiology - Last 24 Hours (Table) 07/20/16 11:55 Blood Culture - Preliminary Blood No Growth after 48 hours Assessment and Plan Plan: Assessment and plan #1 left-sided weakness #2 Bilateral carotid disease, right greater than left #3 coronary artery disease #4 diabetes From a cardiac standpoint, we agree that further follow-up as an outpatient regarding CTA of the carotids is necessary. Patient may require carotid stenting in the future. He is stable for discharge from our stand-point. We will follow-up as an outpatient. 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 Patient was seen and examined.
--- NOTE | 2016-07-23 14:27 | P.DS ---
Providers Date of admission: 07/20/16 11:35 Attending physician: Fred Duff Consults: 07/20/16 11:39 Consult Physician Urgent Consulting Provider: Hemal Neff Consult Reason/Comments: Peripheral vascular disease Do you want consulting provider notified?: Yes 07/21/16 08:30 Consult Physician Urgent Consulting Provider: Caden Garcias Consult Reason/Comments: vascular disease Do you want consulting provider notified?: Yes 07/21/16 15:51 Consult Physician Urgent Consulting Provider: Lucero Jack Consult Reason/Comments: extremity weakness, possible cta carotids? Do you want consulting provider notified?: Yes Primary care physician: Fred Duff Hospital Course: 80-year-old gentleman is admitted to the hospital with progressive worsening of left-sided weakness. Patient currently has had a previous stroke with the some residual weakness on the left lower x-ray. At baseline patient does state to have no significant abnormalities with ambulation is able to get around his house with a walker. There was some concerns over slurred speech hence was admitted to the hospital for evaluation of CVA. Patient apparently was also noted to be in DKA per the previous notes A carotid study was noted to have a right ICA of 70% left ICA 50% stenosis MRI was done which revealed old stroke no acute strokes were noted. Today in cross coverage for Dr. Duff patient was seen at bedside states to be doing well denies having any fevers headaches blurry vision nausea vomiting any new focal signs of weakness or numbness Gen. appearance oriented 3 does not appear to be in distress Heart S1-S2 heard no murmurs appreciated No carotid bruit appreciated Air movement is diminished however no wheezing rhonchi or crackles appreciated Abdomen soft nontender no organomegaly Alves catheters in place Lower extremity is no edema noted Neuro cranial nerves to till 12 grossly intact muscle strength on the left lower extremities 4 out of 5 left upper x-ray is 4 out of 5 in distal strength right upper and lower extremities are 5 out of 5 Discharge diagnosis #1 DKA on admission which is improved #2 acute metabolic encephalopathy secondary to above #3 history of CVA with left-sided weakness with an acute component however is improved at this time #4 CAD #5 carotid stenosis #6 urinary retention with self-catheterization. Continue Alves till evaluation with the home care on Monday Follow-up with Dr. Duff in 1 week Follow-up with Dr. Calles for evaluation of carotid disease in 4 weeks Levemir is increased 28 units NovoLog 10 3 times a day Patient Condition at Discharge: Serious Plan - Discharge Summary New Discharge Prescriptions: Insulin Glargine [Lantus] 28 unit SQ HS #1 vial Discharge Medication List Nitroglycerin Sl Tabs [Nitrostat] 0.4 mg SUBLINGUAL Q5M PRN #25 tab 07/21/15 [Rx ] Atorvastatin [Lipitor] 40 mg PO DAILY #30 tab 11/20/15 [Rx] Clopidogrel [Plavix] 75 mg PO DAILY #30 tab 11/20/15 [Rx] Isosorbide Mononitrate ER [Imdur] 30 mg PO DAILY #30 tab.er.24h 11/20/15 [Rx] Furosemide [Lasix] 40 mg PO DAILY 04/10/16 [History] Carvedilol [Coreg*] 12.5 mg PO BID-W/MEALS #60 tab 04/17/16 [Rx] Lisinopril [Zestril] 10 mg PO DAILY #30 tab 04/17/16 [Rx] amLODIPine [Norvasc] 10 mg PO DAILY #30 tab 04/17/16 [Rx] HYDROcodone/APAP 5-325MG [[place] 5-325] 1 tab PO Q8H PRN 07/20/16 [History] Famotidine [Pepcid] 20 mg PO DAILY tab 07/23/16 [Rx] INSULIN LISPRO (humaLOG) [humaLOG (formulary)] 0 unit SQ ACHS vial 07/23/16 [Rx ] INSULIN LISPRO (humaLOG) [humaLOG (formulary)] 10 unit SQ AC-TID vial 07/23/16 [Rx] Insulin Glargine [Lantus] 28 unit SQ HS #1 vial 07/23/16 [Rx] Follow up Appointment(s)/Referral(s): Caden Garcias MD [STAFF PHYSICIAN] - 4 Weeks (Please call to make an appointment) Fred Duff DO [Primary Care Provider] - 1-2 days Hemal Neff DO [Doctor of Osteopathic Medicine] - 1 Week Activity/Diet/Wound Care/Special Instructions: Home Care - [facility] - [phone]
== END 2016-07-23 15:27 | disposition home health service (06) | DRG 871 ==
LOC: EC 10:08 → 6SEL 11:35
PROVIDERS: ADMIT Family Medicine; ATTEND Family Medicine
PROC: 0T9B70Z Drainage of Bladder with Drainage Device, Via Natural or Artificial Opening (ICD-10-PCS; principal; 2016-07-20)
DX: A41.9 Sepsis, unspecified organism (principal); G93.41 Metabolic encephalopathy; E13.10 Other specified diabetes mellitus with ketoacidosis without coma; N17.9 Acute kidney failure, unspecified; I50.32 Chronic diastolic (congestive) heart failure; I13.0 Hypertensive heart and chronic kidney disease with heart failure and stage 1 through stage 4 chronic kidney disease, or unspecified chronic kidney disease; I69.354 Hemiplegia and hemiparesis following cerebral infarction affecting left non-dominant side; N39.0 Urinary tract infection, site not specified; I65.23 Occlusion and stenosis of bilateral carotid arteries; R65.20 Severe sepsis without septic shock; N18.3 Chronic kidney disease, stage 3 (moderate); T50.1X5A Adverse effect of loop [high-ceiling] diuretics, initial encounter; R33.8 Other retention of urine; N31.8 Other neuromuscular dysfunction of bladder; I69.398 Other sequelae of cerebral infarction; E11.51 Type 2 diabetes mellitus with diabetic peripheral angiopathy without gangrene; E11.40 Type 2 diabetes mellitus with diabetic neuropathy, unspecified; R47.81 Slurred speech; T38.3X6A Underdosing of insulin and oral hypoglycemic [antidiabetic] drugs, initial encounter; R26.2 Difficulty in walking, not elsewhere classified; I67.9 Cerebrovascular disease, unspecified; I25.10 Atherosclerotic heart disease of native coronary artery without angina pectoris; D63.8 Anemia in other chronic diseases classified elsewhere; E86.0 Dehydration; E11.22 Type 2 diabetes mellitus with diabetic chronic kidney disease; E78.5 Hyperlipidemia, unspecified; I25.2 Old myocardial infarction; Z79.899 Other long term (current) drug therapy; Z98.42 Cataract extraction status, left eye; Z98.41 Cataract extraction status, right eye; Z96.1 Presence of intraocular lens; Z95.5 Presence of coronary angioplasty implant and graft; Z95.1 Presence of aortocoronary bypass graft; Z83.3 Family history of diabetes mellitus; Z82.49 Family history of ischemic heart disease and other diseases of the circulatory system; Z87.891 Personal history of nicotine dependence; Z91.041 Radiographic dye allergy status; Z79.4 Long term (current) use of insulin; Z71.3 Dietary counseling and surveillance; Z86.19 Personal history of other infectious and parasitic diseases; Z87.440 Personal history of urinary (tract) infections; Z91.14 Patient's other noncompliance with medication regimen; Z95.820 Peripheral vascular angioplasty status with implants and grafts; Z91.19 Patient's noncompliance with other medical treatment and regimen; Z96.0 Presence of urogenital implants; Z79.02 Long term (current) use of antithrombotics/antiplatelets; Z79.82 Long term (current) use of aspirin; Z79.891 Long term (current) use of opiate analgesic
CPT/HCPCS: 36415; 51798; 70450; 70498; 70551; 71020; 80048; 80051; 80053; 81001; 82009; 82550; 82553; 82565; 82947; 83036; 83605; 83735; 84100; 84439; 84443; 84481; 84484; 84520; 85025; 85610; 85730; 87040; 87077; 87086; 87186; 93005; 95819; 96360; 99291

== ENCOUNTER 2018-04-14 13:57 | Observation (INO) | payer MEDICARE, BC ==
--- NOTE | 2018-04-14 23:04 | XR ---
EXAMINATION TYPE: 2 views chest DATE OF EXAM: 04/14/2018 COMPARISON: 07/20/2016 HISTORY: 82-year-old male with dizziness and diarrhea FINDINGS: Median sternotomy wires are present with post-CABG RIBS. Heart upper limits of normal in size. The de nsities over the lungs likely due to portable technique and underpenetration. Strandy atelectasis low er lungs. No definite consolidation or pleural effusion. IMPRESSION: Limited portable exam. Post-CABG changes. Borderline heart size. No definite acute process.
[2018-04-14] MEDS ORDERED: ACETAMINOPHEN TAB 325 MG TAB PO PRN (23:10)
[2018-04-14] MEDS ORDERED: HYDROcodone/APAP 5-325MG 1 EACH TAB PO PRN (23:10)
[2018-04-14] MEDS ORDERED: ONDANSETRON 4 MG/2 ML VIAL IVP PRN (23:11)
[2018-04-14] MEDS ORDERED: MORPHINE SULFATE 4 MG/ML SYRINGE IVP PRN (23:11)
[2018-04-14] MEDS ORDERED: SODIUM CHLORIDE 0.9% 1,000 ML IV SCH (23:15)
[2018-04-14 23:30] VITALS: BMI 24.3
[2018-04-15] MEDS ORDERED: CARVEDILOL 12.5 MG TAB PO STA (00:05)
[2018-04-15 00:26] LABS: Appearance,Urine Cloudy (Clear); Bacteria,Urine Few /hpf; Bilirubin,Urine Negative (Negative); Blood,Urine Negative (Negative); Color,Urine Yellow; Glucose,Urine (UA) 1+ (Negative); Hyaline Casts,Urine 3 /lpf (0-2); Ketones,Urine Negative (Negative); Leukocyte Esterase,Urine Large (Negative); Nitrite,Urine Negative (Negative); Protein,Urine Negative (Negative); RBC,Urine <1 /hpf (0-5); Specific Gravity,Urine 1.009 (1.001-1.035); Urobilinogen,Urine <2.0 mg/dL (<2.0); WBC,Urine 24 /hpf (0-5)
[2018-04-15 00:43] LABS: Albumin 4.2 g/dL (3.5-5.0); Calcium 9.8 mg/dL (8.4-10.2); Potassium 5.2 mmol/L (3.5-5.1); Total Bilirubin 0.6 mg/dL (0.2-1.3); Total Protein 7.5 g/dL (6.3-8.2)
[2018-04-15 00:51] LABS: Creatine Kinase 32 U/L (55-170); Creatine Kinase MB 0.7 ng/mL (0.0-2.4); Troponin I <0.012 ng/mL (0.000-0.034)
[2018-04-15 01:01] LABS: INR 0.9 (<1.2); Partial Thromboplastin Time 23.7 sec (22.0-30.0); Prothrombin Time 10.2 sec (9.0-12.0)
[2018-04-15 01:54] VITALS: RESP 16; TEMP 98
[2018-04-15 05:52] LABS: Basophils % (A) 0 %; Eosinophils # (A) 0.3 k/uL (0-0.7); Eosinophils % (A) 3 %; HCT 38.8 % (39.0-53.0); Lymphocytes # (A) 2.2 k/uL (1.0-4.8); Lymphocytes % (A) 24 %; MCH 28.8 pg (25.0-35.0); MCHC 33.4 g/dL (31.0-37.0); MCV 86.1 fL (80.0-100.0); Mean Platelet Volume 6.8; Monocytes # (A) 0.4 k/uL (0-1.0); Monocytes % (A) 5 %; Neutrophils # (A) 6.2 k/uL (1.3-7.7); Neutrophils % (A) 67 %; Platelet Count 198 k/uL (150-450); RDW 14.2 % (11.5-15.5); WBC 9.2 k/uL (3.8-10.6)
[2018-04-15 07:06] LABS: Glucose,Whole Blood 192 mg/dL (75-99)
[2018-04-15 07:26] VITALS: BP 133/62; PULSE 62
[2018-04-15] MEDS: INSULIN ASPART 100 UNIT/ML 1 ML 10 ML VIAL SQ SCH ×2 (08:25→13:51)
[2018-04-15] MEDS ORDERED: NITROGLYCERIN SL TABS 0.4 MG TAB SUBLINGUAL PRN (14:42)
--- NOTE | 2018-04-15 15:18 | P.CRDCN ---
History of Present Illness Consult date: 04/15/18 Chief complaint: Presyncopal History of present illness: This is a pleasant 82-year-old gentleman with history of coronary artery disease and multiple coronary artery stenting who I follow in the office as an outpatient, peripheral vascular disease, carotid disease, as well as multiple comorbid conditions who was admitted to the hospital with presyncope. The patient has been doing very well from the cardiac vascular standpoint of view, and he has been compensating very well for the last few years. He was in his usual state of health until yesterday when he did have an episode of diarrhea and subsequently he felt weak and about to lose his consciousness. He did not have a clear-cut syncope. No symptoms of chest pain or chest discomfort. No shortness of breath. No feeling of heart racing or fluttering. The workup overall came in to be unremarkable. The EKG showed sinus bradycardia with a resting heart rate in the 50s. He is on carvedilol for that. The cardiac enzymes came in to be unremarkable. From a cardiac vascular standpoint of view, I do feel that the patient can be discharged home. I we lowered the dose of Coreg to 6.25 mg by mouth twice a day and increase the dose of Imdur to 60 mg by mouth daily. Past Medical History Past Medical History: Coronary Artery Disease (CAD), Chest Pain / Angina, CVA/ TIA, Diabetes Mellitus, Hypertension, Myocardial Infarction ([place]), Renal Disease , Vascular Disorder Additional Past Medical History / Comment(s): URINARY RETENTION pt thinks possible from effects from stroke as well as L arm/leg weakness, REQUIRING SELF CATH, IDDM type II, bilateral NEUROPATHY hands and feet, PVD, [place]'S with last one being 04/09/16, CKD stage III, normocytic anemia, UTIs. Last Myocardial Infarction Date:: 2016 History of Any Multi-Drug Resistant Organisms: None Reported Past Surgical History: Coronary Bypass/CABG, Heart Catheterization, Heart Catheterization With Stent Additional Past Surgical History / Comment(s): 5 VESSLEL BYPASS 2006, stent RT leg , arthrectomy/stent March 2016, bilateral cataract removal with lens implants. Past Anesthesia/Blood Transfusion Reactions: No Reported Reaction Date of Last Stent Placement:: 2016 Past Psychological History: No Psychological Hx Reported Additional Psychological History / Comment(s): Pt resides with his spouse. His [id number] is their hand folder and is with them daily. Pt normally can ambulate with a walker. He no longer drives. His hand folder takes him to [facility]. His hand folder manages his medications. Smoking Status: Former smoker Past Alcohol Use History: Rare Additional Past Alcohol Use History / Comment(s): smoked for many yrs- quit smoking 2008- smoked 2 PPD. Heavy etoh in the past - not current-quit 40 years ago. Past Drug Use History: None Reported - Past Family History Brother(s) Family Medical History: Myocardial Infarction ([place]) Mother Family Medical History: Diabetes Mellitus Additional Family Medical History / Comment(s): AT AGE 93 Father Family Medical History: Myocardial Infarction ([place]) Additional Family Medical History / Comment(s): AT AGE 83 FROM [place]. Medications and Allergies Home Medications Medication Instructions Recorded Confirmed Type Nitroglycerin Sl Tabs [Nitrostat] 0.4 mg SUBLINGUAL Q5M PRN #25 tab 07/21/15 Rx Atorvastatin [Lipitor] 40 mg PO DAILY #30 tab 11/20/15 04/14/18 Rx Clopidogrel [Plavix] 75 mg PO DAILY #30 tab 11/20/15 04/14/18 Rx Isosorbide Mononitrate ER [Imdur] 30 mg PO DAILY #30 tab.er.24h 11/20/15 Rx Furosemide [Lasix] 40 mg PO DAILY 04/10/16 04/14/18 History Carvedilol [Coreg*] 12.5 mg PO BID-W/MEALS #60 tab 04/17/16 04/14/18 Rx Lisinopril [Zestril] 10 mg PO DAILY #30 tab 04/17/16 04/14/18 Rx amLODIPine [Norvasc] 10 mg PO DAILY #30 tab 04/17/16 04/14/18 Rx Insulin NPH Hum/Reg Insulin Hm See Protocol SQ DIRECTED 04/14/18 04/14/18 History [Novolin 70-30 Flexpen] Allergies Allergy/AdvReac Type Severity Reaction Status Date / Time Iodinated Contrast- Oral and AdvReac Rash/Hives Verified 04/14/18 23:32 IV Dye Physical Exam Vitals: Vital Signs Temp Pulse Resp BP Pulse Ox 04/15/18 07:24 98.0 F 62 16 133/62 98 04/15/18 01:00 98.0 F 71 16 126/73 98 04/14/18 22:00 98.3 F 73 18 179/67 99 Intake and Output 04/15/18 04/15/18 04/15/18 06:59 14:59 22:59 Intake Total 540 Output Total 475 Balance 65 Intake: Intake, IV Titration 300 Amount Sodium Chloride 0.9% 1, 300 000 ml @ 50 mls/hr IV . Q20H [facility] Rx#:[id number] Oral 240 Output: Urine 475 Uretheral (Alves) 475 Other: Voiding Method Self-Catheterization Self-Catheterization # Voids 1 Weight 68.18 kg - Constitutional General appearance: no acute distress - Respiratory Respiratory: bilateral: CTA - Cardiovascular Rhythm: regular Heart sounds: normal: S1, S2 Results 04/14/18 13:45 04/14/18 13:45 Cardiac Enzymes 04/14/18 04/14/18 Range/Units 13:45 13:45 AST 17 (17-59) U/L CK-MB (CK-2) 0.7 (0.0-2.4) ng/mL Troponin I <0.012 (0.000-0.034) ng/mL Coagulation 04/14/18 Range/Units 13:45 PT 10.2 (9.0-12.0) sec APTT 23.7 (22.0-30.0) sec CBC 04/14/18 Range/Units 13:45 WBC 9.2 (3.8-10.6) k/uL RBC 4.50 (4.30-5.90) m/uL Hgb 13.0 (13.0-17.5) gm/dL Hct 38.8 L (39.0-53.0) % Plt Count 198 (150-450) k/uL Comprehensive Metabolic Panel 04/14/18 Range/Units 13:45 Sodium 141 (137-145) mmol/L Potassium 5.2 H (3.5-5.1) mmol/L Chloride 103 (98-107) mmol/L Carbon Dioxide 26 (22-30) mmol/L BUN 41 H (9-20) mg/dL Creatinine 2.11 H (0.66-1.25) mg/dL Glucose 196 H (74-99) mg/dL Calcium 9.8 (8.4-10.2) mg/dL AST 17 (17-59) U/L ALT 25 (21-72) U/L Alkaline Phosphatase 100 (38-126) U/L Total Protein 7.5 (6.3-8.2) g/dL Albumin 4.2 (3.5-5.0) g/dL Current Medications Generic Name Dose Route Start Last Admin Trade Name Freq PRN Reason Stop Dose Admin Acetaminophen 650 mg 04/14/18 23:10 Tylenol Tab PO Q6HR PRN Fever and/ or Pain Hydrocodone Bitart/Acetaminophen 1 each 04/14/18 23:10 04/14/18 23:19 [place] 5-325 PO 1 each Q4HR PRN Administration Pain Amlodipine Besylate 10 mg 04/16/18 09:00 Norvasc PO DAILY [facility] Clopidogrel Bisulfate 75 mg 04/16/18 09:00 Plavix PO DAILY K[facility] Sodium Chloride 1,000 mls @ 50 mls/hr 04/14/18 23:15 04/14/18 23:19 Saline 0.9% IV 50 mls/hr .Q20H K[facility] Administration Insulin Aspart 0 unit 04/15/18 07:30 04/15/18 13:51 Novolog SQ 2 unit ACHS K[facility] Administration Protocol Morphine Sulfate 4 mg 04/14/18 23:11 Morphine Sulfate (Inj) IVP Q4HR PRN Severe Pain Nitroglycerin 0.4 mg 04/15/18 14:42 Nitrostat SUBLINGUAL Q5M PRN Chest Pain Ondansetron HCl 4 mg 04/14/18 23:11 Zofran IVP Q8HR PRN Nausea And Vomiting Intake and Output 04/15/18 04/15/18 04/15/18 06:59 14:59 22:59 Intake Total 540 Output Total 475 Balance 65 Intake: Intake, IV Titration 300 Amount Sodium Chloride 0.9% 1, 300 000 ml @ 50 mls/hr IV . Q20H [facility] Rx#:[id number] Oral 240 Output: Urine 475 Uretheral (Alves) 475 Other: Voiding Method Self-Catheterization Self-Catheterization # Voids 1 Weight 68.18 kg 04/14/18 13:45 04/14/18 13:45 Assessment and Plan Assessment: Assessment #1 presyncope #2 diarrhea which has improved #3 coronary artery disease and prior stenting #4 carotid disease #5 sinus bradycardia Plan #1 the patient can be discharged home #2 I will decrease the dose of Coreg to 6.25 mg by mouth twice a day #3 increase the dose of Imdur to 60 mg by mouth daily
[2018-04-15] MEDS ORDERED: CARVEDILOL 12.5 MG TAB PO SCH (17:30)
[2018-04-15] MEDS ORDERED: CARVEDILOL 6.25 MG TAB PO SCH (17:30)
--- NOTE | 2018-04-15 18:00 | P.DS ---
Providers Date of admission: 04/14/18 19:45 Attending physician: Fred Duff Consults: 04/14/18 23:53 Consult Physician Routine Consulting Provider: Caden Garcias Consult Reason/Comments: syncope Do you want consulting provider notified?: Yes, Notify in am Primary care physician: Fred Duff [place] Hospital Course: Patient left AGAINST MEDICAL ADVICE Plan - Discharge Summary Discharge Rx Participant: Yes New Discharge Prescriptions: No Action Nitroglycerin Sl Tabs [Nitrostat] 0.4 mg SUBLINGUAL Q5M PRN #25 tab PRN Reason: Chest Pain Atorvastatin [Lipitor] 40 mg PO DAILY #30 tab Clopidogrel [Plavix] 75 mg PO DAILY #30 tab Isosorbide Mononitrate ER [Imdur] 30 mg PO DAILY #30 tab.er.24h Furosemide [Lasix] 40 mg PO DAILY Carvedilol [Coreg*] 12.5 mg PO BID-W/MEALS #60 tab Lisinopril [Zestril] 10 mg PO DAILY #30 tab amLODIPine [Norvasc] 10 mg PO DAILY #30 tab Insulin NPH Hum/Reg Insulin Hm [Novolin 70-30 Flexpen] See Protocol SQ DIRECTED Discharge Medication List Nitroglycerin Sl Tabs [Nitrostat] 0.4 mg SUBLINGUAL Q5M PRN #25 tab 07/21/15 [Rx ] Atorvastatin [Lipitor] 40 mg PO DAILY #30 tab 11/20/15 [Rx] Clopidogrel [Plavix] 75 mg PO DAILY #30 tab 11/20/15 [Rx] Isosorbide Mononitrate ER [Imdur] 30 mg PO DAILY #30 tab.er.24h 11/20/15 [Rx] Furosemide [Lasix] 40 mg PO DAILY 04/10/16 [History] Carvedilol [Coreg*] 12.5 mg PO BID-W/MEALS #60 tab 04/17/16 [Rx] Lisinopril [Zestril] 10 mg PO DAILY #30 tab 04/17/16 [Rx] amLODIPine [Norvasc] 10 mg PO DAILY #30 tab 04/17/16 [Rx] Insulin NPH Hum/Reg Insulin Hm [Novolin 70-30 Flexpen] See Protocol SQ DIRECTED 04/14/18 [History] Follow up Appointment(s)/Referral(s): Caden Garcias MD [STAFF PHYSICIAN] - 3 Weeks (Office Closed please call and schedule an appointment in 3-4 weeks.) Fred Duff DO [Primary Care Provider] - 1 Week (Office Closed please call and schedule an appointment in 1 week.) Patient Instructions/Handouts: Syncope (DC) Discharge Disposition: Left Against Medical Advice
--- NOTE | 2018-04-15 18:00 | P.HPIM ---
History of Present Illness 82-year-old the gentleman with history of coronary artery disease peripheral vascular disease came in with the few episodes of diarrhea which resolved at this time, resulting in some lightheadedness and near syncopal episode without any actual syncope. Patient was not started on any of his antidepressants medications patient is on Lasix, amlodipine, Coreg, LLOYD inhibitor. Once he started on these medications patient can become lightheaded again patient's orthostatic vitals are negative. I wanted to start some of these medications and titrate them by tomorrow. And probably discharge at that time but patient declined to stay wanted to leave AGAINST MEDICAL ADVICE. Coreg dose was decreased by Dr. Garcias because of mild sinus bradycardia. Patient's baseline creatinine is around 1.6 now around 2.1 probably because left Lasix and LLOYD inhibitor may have contributed to his lightheadedness along with diarrhea. Review of Systems REVIEW OF SYSTEMS: CONSTITUTIONAL: No fever, no malaise, no fatigue. HEENT: No recent visual problems or hearing problems. Denied any sore throat. CARDIOVASCULAR: No chest pain, orthopnea, PND, no palpitations, no syncope. PULMONARY: No shortness of breath, no cough, no hemoptysis. GASTROINTESTINAL: No diarrhea, no nausea, no vomiting, no abdominal pain. NEUROLOGICAL: No headaches, no weakness, no numbness. HEMATOLOGICAL: Denies any bleeding or petechiae. GENITOURINARY: Denies any burning micturition, frequency, or urgency. MUSCULOSKELETAL/RHEUMATOLOGICAL: Denies any joint pain, swelling, or any muscle pain. ENDOCRINE: Denies any polyuria or polydipsia. The rest of the 14-point review of systems is negative. Past Medical History Past Medical History: Coronary Artery Disease (CAD), Chest Pain / Angina, CVA/ TIA, Diabetes Mellitus, Hypertension, Myocardial Infarction ([place]), Renal Disease , Vascular Disorder Additional Past Medical History / Comment(s): URINARY RETENTION pt thinks possible from effects from stroke as well as L arm/leg weakness, REQUIRING SELF CATH, IDDM type II, bilateral NEUROPATHY hands and feet, PVD, [place]'S with last one being 04/09/16, CKD stage III, normocytic anemia, UTIs. Last Myocardial Infarction Date:: 2016 History of Any Multi-Drug Resistant Organisms: None Reported Past Surgical History: Coronary Bypass/CABG, Heart Catheterization, Heart Catheterization With Stent Additional Past Surgical History / Comment(s): 5 VESSLEL BYPASS 2006, stent RT leg , arthrectomy/stent March 2016, bilateral cataract removal with lens implants. Past Anesthesia/Blood Transfusion Reactions: No Reported Reaction Date of Last Stent Placement:: 2016 Past Psychological History: No Psychological Hx Reported Additional Psychological History / Comment(s): Pt resides with his spouse. His [id number] is their welder assembler and is with them daily. Pt normally can ambulate with a walker. He no longer drives. His welder assembler takes him to [employer]. His welder assembler manages his medications. Smoking Status: Former smoker Past Alcohol Use History: Rare Additional Past Alcohol Use History / Comment(s): smoked for many yrs- quit smoking 2008- smoked 2 PPD. Heavy etoh in the past - not current-quit 40 years ago. Past Drug Use History: None Reported - Past Family History Brother(s) Family Medical History: Myocardial Infarction ([place]) Mother Family Medical History: Diabetes Mellitus Additional Family Medical History / Comment(s): AT AGE 93 Father Family Medical History: Myocardial Infarction ([place]) Additional Family Medical History / Comment(s): AT AGE 83 FROM [place]. Medications and Allergies Home Medications Medication Instructions Recorded Confirmed Type Nitroglycerin Sl Tabs [Nitrostat] 0.4 mg SUBLINGUAL Q5M PRN #25 tab 07/21/15 Rx Atorvastatin [Lipitor] 40 mg PO DAILY #30 tab 11/20/15 04/14/18 Rx Clopidogrel [Plavix] 75 mg PO DAILY #30 tab 11/20/15 04/14/18 Rx Isosorbide Mononitrate ER [Imdur] 30 mg PO DAILY #30 tab.er.24h 11/20/15 Rx Furosemide [Lasix] 40 mg PO DAILY 04/10/16 04/14/18 History Carvedilol [Coreg*] 12.5 mg PO BID-W/MEALS #60 tab 04/17/16 04/14/18 Rx Lisinopril [Zestril] 10 mg PO DAILY #30 tab 04/17/16 04/14/18 Rx amLODIPine [Norvasc] 10 mg PO DAILY #30 tab 04/17/16 04/14/18 Rx Insulin NPH Hum/Reg Insulin Hm See Protocol SQ DIRECTED 04/14/18 04/14/18 History [Novolin 70-30 Flexpen] Allergies Allergy/AdvReac Type Severity Reaction Status Date / Time Iodinated Contrast- Oral and AdvReac Rash/Hives Verified 04/14/18 23:32 IV Dye Physical Exam Vitals: Vital Signs Temp Pulse Resp BP Pulse Ox 04/15/18 07:24 98.0 F 62 16 133/62 98 04/15/18 01:00 98.0 F 71 16 126/73 98 04/14/18 22:00 98.3 F 73 18 179/67 99 Intake and Output 04/15/18 04/15/18 04/15/18 06:59 14:59 22:59 Intake Total 540 Output Total 475 Balance 65 Intake: Intake, IV Titration 300 Amount Sodium Chloride 0.9% 1, 300 000 ml @ 50 mls/hr IV . Q20H KODY Rx#:[id number] Oral 240 Output: Urine 475 Uretheral (Alves) 475 Other: Voiding Method Self-Catheterization Self-Catheterization # Voids 1 Weight 68.18 kg PHYSICAL EXAMINATION: GENERAL: The patient is alert and oriented x3, not in any acute distress. Well developed, well nourished. HEENT: Pupils are round and equally reacting to light. EOMI. No scleral icterus. No conjunctival pallor. Normocephalic, atraumatic. No pharyngeal erythema. No thyromegaly. CARDIOVASCULAR: S1 and S2 present. No murmurs, rubs, or gallops. PULMONARY: Chest is clear to auscultation, no wheezing or crackles. ABDOMEN: Soft, nontender, nondistended, normoactive bowel sounds. No palpable organomegaly. MUSCULOSKELETAL: No joint swelling or deformity. EXTREMITIES: No cyanosis, clubbing, or pedal edema. NEUROLOGICAL: Gross neurological examination did not reveal any focal deficits. SKIN: No rashes. Results CBC & Chem 7: 04/14/18 13:45 04/14/18 13:45 Labs: Abnormal Lab Results - Last 24 Hours (Table) 04/14/18 04/14/18 04/14/18 Range/Units 13:45 13:45 13:45 Hct 38.8 L (39.0-53.0) % Potassium 5.2 H (3.5-5.1) mmol/L BUN 41 H (9-20) mg/dL Creatinine 2.11 H (0.66-1.25) mg/dL Glucose 196 H (74-99) mg/dL POC Glucose (mg/dL) (75-99) mg/dL Total Creatine Kinase 32 L (55-170) U/L Urine Glucose (UA) (Negative) Ur Leukocyte Esterase (Negative) Urine WBC (0-5) /hpf Urine WBC Clumps (None) /hpf Urine Bacteria (None) /hpf Hyaline Casts (0-2) /lpf 04/14/18 04/15/18 Range/Units 13:45 07:03 Hct (39.0-53.0) % Potassium (3.5-5.1) mmol/L BUN (9-20) mg/dL Creatinine (0.66-1.25) mg/dL Glucose (74-99) mg/dL POC Glucose (mg/dL) 192 H (75-99) mg/dL Total Creatine Kinase (55-170) U/L Urine Glucose (UA) 1+ H (Negative) Ur Leukocyte Esterase Large H (Negative) Urine WBC 24 H (0-5) /hpf Urine WBC Clumps Few H (None) /hpf Urine Bacteria Few H (None) /hpf Hyaline Casts 3 H (0-2) /lpf Thrombosis Risk Factor Assmnt - Choose All That Apply Any of the Below Risk Factors Present?: No Other Risk Factors: Yes Each Risk Factor Represents 3 Points: Age 75 years or older Thrombosis Risk Factor Assessment Total Risk Factor Score: 3 Thrombosis Risk Factor Assessment Level: Moderate Risk Assessment and Plan Plan: -Near syncopal episode and dizziness probably secondary to his diarrhea which improved now which also resulted in acute renal failure. Patient's medications need to be titrated in spite of not getting any of his antidepressants medications patient blood pressure remained near normal wanted to start some of his medications titrated these medications by tomorrow but patient declined to stay may leave AGAINST MEDICAL ADVICE. -Mild sinus bradycardia beta jaylyn dose was recommended to cut down same thing was informed to the patient -Mild acute renal failure on chronic kidney disease stage 3-4: I did not have enough time to address acute renal failure issue as patient doesn't want to stay in the hospital. -Diabetic nephropathy -Type 2 diabetes mellitus -Hyperlipidemia Of coronary artery disease -Peripheral vascular disease The patient's leaves AMA I requested him to follow with Dr. Fred Duff and Dr. Garcias closely as an outpatient
[2018-04-16] MEDS ORDERED: ISOSORBIDE MONONITRATE ER 30 MG TAB.ER.24H PO SCH (09:00)
[2018-04-16] MEDS ORDERED: CLOPIDOGREL 75 MG TAB PO SCH (09:00)
[2018-04-16] MEDS ORDERED: amLODIPine 10 MG TAB PO SCH (09:00)
[2018-04-16] MEDS ORDERED: ISOSORBIDE MONONITRATE ER 60 MG TAB.ER.24H PO SCH (09:00)
== END 2018-04-15 15:50 | disposition left against medical advice (07) ==
LOC: EC 13:57 → 4SSUR 19:45
PROVIDERS: ADMIT Family Medicine; ATTEND Family Medicine
DX: R55 Syncope and collapse (principal); N17.9 Acute kidney failure, unspecified; I25.10 Atherosclerotic heart disease of native coronary artery without angina pectoris; R42 Dizziness and giddiness; R19.7 Diarrhea, unspecified; R00.1 Bradycardia, unspecified; I12.9 Hypertensive chronic kidney disease with stage 1 through stage 4 chronic kidney disease, or unspecified chronic kidney disease; N18.4 Chronic kidney disease, stage 4 (severe); E11.22 Type 2 diabetes mellitus with diabetic chronic kidney disease; E11.21 Type 2 diabetes mellitus with diabetic nephropathy; E11.42 Type 2 diabetes mellitus with diabetic polyneuropathy; E11.51 Type 2 diabetes mellitus with diabetic peripheral angiopathy without gangrene; E78.5 Hyperlipidemia, unspecified; I69.354 Hemiplegia and hemiparesis following cerebral infarction affecting left non-dominant side; R33.9 Retention of urine, unspecified; D64.9 Anemia, unspecified; I65.29 Occlusion and stenosis of unspecified carotid artery; Z79.02 Long term (current) use of antithrombotics/antiplatelets; Z79.899 Other long term (current) drug therapy; Z79.4 Long term (current) use of insulin; Z91.041 Radiographic dye allergy status; I25.2 Old myocardial infarction; Z95.1 Presence of aortocoronary bypass graft; Z95.5 Presence of coronary angioplasty implant and graft; Z87.440 Personal history of urinary (tract) infections; Z98.42 Cataract extraction status, left eye; Z98.41 Cataract extraction status, right eye; Z96.1 Presence of intraocular lens; Z95.828 Presence of other vascular implants and grafts; Z87.891 Personal history of nicotine dependence; Z82.49 Family history of ischemic heart disease and other diseases of the circulatory system; Z83.3 Family history of diabetes mellitus; Z53.21 Procedure and treatment not carried out due to patient leaving prior to being seen by health care provider
CPT/HCPCS: 99285; 36415; 86900; 86901; 80053; 82550; 82553; 84484; 85025; 85610; 85730; 86850; 81001; 71046; G0378 ×2

== ENCOUNTER 2018-06-13 17:03 | Inpatient (IN) | payer MEDICARE, BC ==
[2018-06-13] MEDS ORDERED: SODIUM CHLORIDE 0.9% 1,000 ML IV STA (17:07)
--- NOTE | 2018-06-13 17:23 | ED ---
Weakness HPI - General Chief complaint: Weakness Stated complaint: Weakness Time Seen by Provider: 06/13/18 17:04 Source: patient, EMS, RN notes reviewed, old records reviewed Mode of arrival: EMS Limitations: no limitations - History of Present Illness Initial comments: This is a 2-year-old male the ER for evaluation. Patient's coming to ER from home. Patient presents today with a history of self-catheterization known urinary tract infection, states he has had fevers and continues to feel weak lightheaded and dizzy with a decreased appetite. Patient is on a second antibiotic for known infection and he feels like his symptoms of just progressiv radha getting worse. Denies any shortness of breath cough or congestion no body aches or pains no abdominal pain. MD Complaint: generalized weakness -: days(s) Location: generalized Severity: moderate Severity scale (1-10): 6 Quality: other (No pain) Consistency: constant Improves with: none Worsens with: none Context: recent illness Associated Symptoms: fever/chills, loss of appetite - Related Data Home Medications Medication Instructions Recorded Confirmed Furosemide [Lasix] 40 mg PO DAILY 04/10/16 06/13/18 Insulin NPH Hum/Reg Insulin Hm See Protocol SQ DIRECTED 04/14/18 06/13/18 [Novolin 70-30 Flexpen] Nitrofurantoin Monohyd/M-Cryst 100 mg PO BID 06/13/18 06/13/18 [Macrobid] Previous Rx's Medication Instructions Recorded Clopidogrel [Plavix] 75 mg PO DAILY #30 tab 11/20/15 Isosorbide Mononitrate ER [Imdur] 30 mg PO DAILY #30 tab.er.24h 11/20/15 Lisinopril [Zestril] 10 mg PO DAILY #30 tab 04/17/16 amLODIPine [Norvasc] 10 mg PO DAILY #30 tab 04/17/16 Allergies Allergy/AdvReac Type Severity Reaction Status Date / Time Iodinated Contrast- Oral and AdvReac Rash/Hives Verified 06/13/18 17:53 IV Dye Review of Systems ROS Statement: Those systems with pertinent positive or pertinent negative responses have been documented in the HPI. ROS Other: All systems not noted in ROS Statement are negative. Past Medical History Past Medical History: Coronary Artery Disease (CAD), Chest Pain / Angina, CVA/TIA, Diabetes Mellitus, Hypertension, Myocardial Infarction ([place]), Renal Disease, Vascular Disorder Additional Past Medical History / Comment(s): URINARY RETENTION pt thinks possible from effects from stroke as well as L arm/leg weakness, REQUIRING SELF CATH, IDDM type II, bilateral NEUROPATHY hands and feet, PVD, [place]'S with last one being 04/09/16, CKD stage III, normocytic anemia, UTIs. Last Myocardial Infarction Date:: 2016 History of Any Multi-Drug Resistant Organisms: None Reported Past Surgical History: Coronary Bypass/CABG, Heart Catheterization, Heart Cathet erization With Stent Additional Past Surgical History / Comment(s): 5 VESSLEL BYPASS 2006, stent RT leg , arthrectomy/stent March 2016, bilateral cataract removal with lens implants. Past Anesthesia/Blood Transfusion Reactions: No Reported Reaction Date of Last Stent Placement:: 2016 Past Psychological History: No Psychological Hx Reported Smoking Status: Former smoker Past Alcohol Use History: None Reported Past Drug Use History: None Reported - Past Family History Brother(s) Family Medical History: Myocardial Infarction ([place]) Mother Family Medical History: Diabetes Mellitus Additional Family Medical History / Comment(s): AT AGE 93 Father Family Medical History: Myocardial Infarction ([place]) Additional Family Medical History / Comment(s): AT AGE 83 FROM [place]. General Exam Limitations: no limitations General appearance: alert, in no apparent distress Head exam: Present: atraumatic, normocephalic, normal inspection Eye exam: Present: normal appearance, PERRL, EOMI. Absent: scleral icterus, conjunctival injection, periorbital swelling ENT exam: Present: normal exam, mucous membranes dry Neck exam: Present: normal inspection. Absent: tenderness, meningismus, lymphadenopathy Respiratory exam: Present: normal lung sounds bilaterally. Absent: respiratory distress, wheezes, rales, rhonchi, stridor Cardiovascular Exam: Present: regular rate, normal rhythm, normal heart sounds. Absent: systolic murmur, diastolic murmur, rubs, gallop, clicks GI/Abdominal exam: Present: soft, normal bowel sounds. Absent: distended, tenderness, guarding, rebound, rigid Extremities exam: Present: normal inspection, full ROM, normal capillary refill. Absent: tenderness, pedal edema, joint swelling, calf tenderness Back exam: Present: normal inspection Neurological exam: Present: alert, oriented X3, CN II-XII intact Psychiatric exam: Present: normal affect, normal mood Skin exam: Present: warm, dry, intact, normal color. Absent: rash Course Vital Signs 06/13/18 17:09 Temperature 98.8 F Pulse Rate 92 Respiratory 18 Rate Blood Pressure 160/65 - Reevaluation(s) Reevaluation #1: 06/13/18 19:13 Medical record is reviewed Reevaluation #2: 06/13/18 19:13 Patient still continuing to feel better with hydration EKG Findings - EKG Comments: EKG Findings:: EKG shows normal sinus rhythm rate of 90, MN 194, QRS 04, QTc 450 Medical Decision Making - Medical Decision Making 82 male the ER for weakness known UTI on a second antibiotic. Patient still has positive urinary tract infection in the ER will culture and place patient on IV antibiotics. Patient does have significant white count at 25, will admit for failure of outpatient treatment - Lab Data Result diagrams: 06/13/18 17:29 06/13/18 17:29 Lab Results 06/13/18 06/13/18 06/13/18 Range/Units 17:29 17:29 17:29 WBC 25.8 H (3.8-10.6) k/uL RBC 4.19 L (4.30-5.90) m/uL Hgb 11.5 L (13.0-17.5) gm/dL Hct 35.8 L (39.0-53.0) % MCV 85.4 (80.0-100.0) fL MCH 27.5 (25.0-35.0) pg MCHC 32.2 (31.0-37.0) g/dL RDW 13.8 (11.5-15.5) % Plt Count 181 (150-450) k/uL Neutrophils % 93 % Lymphocytes % 4 % Monocytes % 2 % Eosinophils % 0 % Basophils % 0 % Neutrophils # 24.1 H (1.3-7.7) k/uL Lymphocytes # 0.9 L (1.0-4.8) k/uL Monocytes # 0.6 (0-1.0) k/uL Eosinophils # 0.0 (0-0.7) k/uL Basophils # 0.1 (0-0.2) k/uL PT (9.0-12.0) sec INR (<1.2) APTT (22.0-30.0) sec Sodium 136 L (137-145) mmol/L Potassium 5.2 H (3.5-5.1) mmol/L Chloride 105 (98-107) mmol/L Carbon Dioxide 20 L (22-30) mmol/L Anion Gap 11 mmol/L BUN 47 H (9-20) mg/dL Creatinine 1.89 H (0.66-1.25) mg/dL Est GFR (CKD-EPI)AfAm 38 (>60 ml/min/1.73 sqM) Est GFR (CKD-EPI)NonAf 33 (>60 ml/min/1.73 sqM) Glucose 353 H (74-99) mg/dL Plasma Lactic Acid Trevor 1.9 (0.7-2.0) mmol/L Calcium 9.2 (8.4-10.2) mg/dL Phosphorus 3.2 (2.5-4.5) mg/dL Magnesium 1.8 (1.6-2.3) mg/dL Total Bilirubin 0.5 (0.2-1.3) mg/dL AST 20 (17-59) U/L ALT 29 (21-72) U/L Alkaline Phosphatase 95 (38-126) U/L Troponin I (0.000-0.034) ng/mL NT-Pro-B Natriuret Pep pg/mL Total Protein 6.4 (6.3-8.2) g/dL Albumin 3.6 (3.5-5.0) g/dL Urine Color Urine Appearance (Clear) Urine pH (5.0-8.0) Ur Specific [place] (1.001-1.035) Urine Protein (Negative) Urine Glucose (UA) (Negative) Urine Ketones (Negative) Urine Blood (Negative) Urine Nitrite (Negative) Urine Bilirubin (Negative) Urine Urobilinogen (<2.0) mg/dL Ur Leukocyte Esterase (Negative) Urine WBC (0-5) /hpf Urine WBC Clumps (None) /hpf Ur Squamous Epith Cells (0-4) /hpf Urine Bacteria (None) /hpf Hyaline Casts (0-2) /lpf Urine Mucus (None) /hpf 06/13/18 06/13/18 06/13/18 Range/Units 17:29 17:29 17:29 WBC (3.8-10.6) k/uL RBC (4.30-5.90) m/uL Hgb (13.0-17.5) gm/dL Hct (39.0-53.0) % MCV (80.0-100.0) fL MCH (25.0-35.0) pg MCHC (31.0-37.0) g/dL RDW (11.5-15.5) % Plt Count (150-450) k/uL Neutrophils % % Lymphocytes % % Monocytes % % Eosinophils % % Basophils % % Neutrophils # (1.3-7.7) k/uL Lymphocytes # (1.0-4.8) k/uL Monocytes # (0-1.0) k/uL Eosinophils # (0-0.7) k/uL Basophils # (0-0.2) k/uL PT 11.0 (9.0-12.0) sec INR 1.0 (<1.2) APTT 25.7 (22.0-30.0) sec Sodium (137-145) mmol/L Potassium (3.5-5.1) mmol/L Chloride (98-107) mmol/L Carbon Dioxide (22-30) mmol/L Anion Gap mmol/L BUN (9-20) mg/dL Creatinine (0.66-1.25) mg/dL Est GFR (CKD-EPI)AfAm (>60 ml/min/1.73 sqM) Est GFR (CKD-EPI)NonAf (>60 ml/min/1.73 sqM) Glucose (74-99) mg/dL Plasma Lactic Acid Trevor (0.7-2.0) mmol/L Calcium (8.4-10.2) mg/dL Phosphorus (2.5-4.5) mg/dL Magnesium (1.6-2.3) mg/dL Total Bilirubin (0.2-1.3) mg/dL AST (17-59) U/L ALT (21-72) U/L Alkaline Phosphatase (38-126) U/L Troponin I <0.012 (0.000-0.034) ng/mL NT-Pro-B Natriuret Pep pg/mL Total Protein (6.3-8.2) g/dL Albumin (3.5-5.0) g/dL Urine Color Yellow Urine Appearance Cloudy (Clear) Urine pH 5.0 (5.0-8.0) Ur Specific [place] 1.014 (1.001-1.035) Urine Protein 1+ H (Negative) Urine Glucose (UA) 3+ H (Negative) Urine Ketones Trace H (Negative) Urine Blood Negative (Negative) Urine Nitrite Negative (Negative) Urine Bilirubin Negative (Negative) Urine Urobilinogen <2.0 (<2.0) mg/dL Ur Leukocyte Esterase Large H (Negative) Urine WBC 65 H (0-5) /hpf Urine WBC Clumps Moderate H (None) /hpf Ur Squamous Epith Cells <1 (0-4) /hpf Urine Bacteria Many H (None) /hpf Hyaline Casts 4 H (0-2) /lpf Urine Mucus Rare H (None) /hpf 06/13/18 Range/Units 17:29 WBC (3.8-10.6) k/uL RBC (4.30-5.90) m/uL Hgb (13.0-17.5) gm/dL Hct (39.0-53.0) % MCV (80.0-100.0) fL MCH (25.0-35.0) pg MCHC (31.0-37.0) g/dL RDW (11.5-15.5) % Plt Count (150-450) k/uL Neutrophils % % Lymphocytes % % Monocytes % % Eosinophils % % Basophils % % Neutrophils # (1.3-7.7) k/uL Lymphocytes # (1.0-4.8) k/uL Monocytes # (0-1.0) k/uL Eosinophils # (0-0.7) k/uL Basophils # (0-0.2) k/uL PT (9.0-12.0) sec INR (<1.2) APTT (22.0-30.0) sec Sodium (137-145) mmol/L Potassium (3.5-5.1) mmol/L Chloride (98-107) mmol/L Carbon Dioxide (22-30) mmol/L Anion Gap mmol/L BUN (9-20) mg/dL Creatinine (0.66-1.25) mg/dL Est GFR (CKD-EPI)AfAm (>60 ml/min/1.73 sqM) Est GFR (CKD-EPI)NonAf (>60 ml/min/1.73 sqM) Glucose (74-99) mg/dL Plasma Lactic Acid Trevor (0.7-2.0) mmol/L Calcium (8.4-10.2) mg/dL Phosphorus (2.5-4.5) mg/dL Magnesium (1.6-2.3) mg/dL Total Bilirubin (0.2-1.3) mg/dL AST (17-59) U/L ALT (21-72) U/L Alkaline Phosphatase (38-126) U/L Troponin I (0.000-0.034) ng/mL NT-Pro-B Natriuret Pep 2150 pg/mL Total Protein (6.3-8.2) g/dL Albumin (3.5-5.0) g/dL Urine Color Urine Appearance (Clear) Urine pH (5.0-8.0) Ur Specific [place] (1.001-1.035) Urine Protein (Negative) Urine Glucose (UA) (Negative) Urine Ketones (Negative) Urine Blood (Negative) Urine Nitrite (Negative) Urine Bilirubin (Negative) Urine Urobilinogen (<2.0) mg/dL Ur Leukocyte Esterase (Negative) Urine WBC (0-5) /hpf Urine WBC Clumps (None) /hpf Ur Squamous Epith Cells (0-4) /hpf Urine Bacteria (None) /hpf Hyaline Casts (0-2) /lpf Urine Mucus (None) /hpf - Radiology Data Radiology results: report reviewed (Chest x-rays negative for acute disease), image reviewed Disposition Clinical Impression: Weakness, UTI (urinary tract infection), Failure of outpatient treatment Disposition: ADMITTED IP TO THIS [facility] Condition: Fair Is patient prescribed a controlled substance at d/c from ED?: No Referrals: Fred Duff DO [Primary Care Provider] - 1-2 days
[2018-06-13 17:57] LABS: Basophils # (A) 0.1 k/uL (0-0.2); Basophils % (A) 0 %; Eosinophils % (A) 0 %; HCT 35.8 % (39.0-53.0); HGB 11.5 gm/dL (13.0-17.5); Lymphocytes # (A) 0.9 k/uL (1.0-4.8); Lymphocytes % (A) 4 %; MCH 27.5 pg (25.0-35.0); MCHC 32.2 g/dL (31.0-37.0); MCV 85.4 fL (80.0-100.0); Mean Platelet Volume 6.9; Monocytes # (A) 0.6 k/uL (0-1.0); Monocytes % (A) 2 %; Neutrophils # (A) 24.1 k/uL (1.3-7.7); Neutrophils % (A) 93 %; Platelet Count 181 k/uL (150-450); RBC 4.19 m/uL (4.30-5.90); RDW 13.8 % (11.5-15.5); WBC 25.8 k/uL (3.8-10.6)
[2018-06-13 17:59] LABS: Appearance,Urine Cloudy (Clear); Bacteria,Urine Many /hpf; Bilirubin,Urine Negative (Negative); Blood,Urine Negative (Negative); Color,Urine Yellow; Glucose,Urine (UA) 3+ (Negative); Hyaline Casts,Urine 4 /lpf (0-2); Ketones,Urine Trace (Negative); Leukocyte Esterase,Urine Large (Negative); Mucus,Urine Rare /hpf; Nitrite,Urine Negative (Negative); Protein,Urine 1+ (Negative); Specific Gravity,Urine 1.014 (1.001-1.035); Squamous Epithelial Cell,Urine <1 /hpf (0-4); Urobilinogen,Urine <2.0 mg/dL (<2.0)
[2018-06-13 18:04] LABS: Albumin 3.6 g/dL (3.5-5.0); Calcium 9.2 mg/dL (8.4-10.2); Magnesium 1.8 mg/dL (1.6-2.3); Phosphorus 3.2 mg/dL (2.5-4.5); Potassium 5.2 mmol/L (3.5-5.1); Total Bilirubin 0.5 mg/dL (0.2-1.3); Total Protein 6.4 g/dL (6.3-8.2)
[2018-06-13 18:09] LABS: Partial Thromboplastin Time 25.7 sec (22.0-30.0)
--- NOTE | 2018-06-13 19:07 | XR ---
EXAMINATION TYPE: XR chest 2V DATE OF EXAM: 06/13/2018 COMPARISON: 04/14/2018 HISTORY: Weakness TECHNIQUE: Frontal and lateral views of the chest are obtained. FINDINGS: Heart size is normal. Lungs are clear of consolidation. There are sternal wires. There are chest leads. Bony thorax is intact. There is no heart failure. IMPRESSION: No active cardiopulmonary disease. No adverse change compared to old exam. There is khurram ring of the minimal pleural reaction on the left side compared to old exam.
[2018-06-13] MEDS ORDERED: SODIUM CHLORIDE 0.9% 1,000 ML IV ONE (19:11)
[2018-06-13] MEDS ORDERED: AMPICILLIN-SULBACTAM 1.5 GM in SODIUM CHLORIDE 0.9% 50 ML IVPB STA (19:11)
[2018-06-13] MEDS: NITROGLYCERIN SL TABS 0.4 MG TAB SUBLINGUAL PRN ×2 (21:27→22:49)
[2018-06-13 21:32] LABS: Glucose,Whole Blood 307 mg/dL (75-99)
[2018-06-13] MEDS: GABAPENTIN 100 MG CAP PO PRN (22:50)
[2018-06-13] MEDS ORDERED: INSULIN ASPART (NovoLOG) 100 UNIT/ML VIAL SQ ONE (22:57)
[2018-06-14] MEDS: AMPICILLIN-SULBACTAM 3 GM in SODIUM CHLORIDE 0.9% 100 ML IVPB SCH ×4 (01:23→17:47)
[2018-06-14 04:28] VITALS: BMI 23.8
[2018-06-14 07:24] LABS: Glucose,Whole Blood 197 mg/dL (75-99)
[2018-06-14] MEDS: GABAPENTIN 100 MG CAP PO PRN (08:52)
[2018-06-14] MEDS: INSULIN ASPART (NovoLOG) 100 UNIT/ML VIAL SQ SCH ×4 (08:52→20:48)
[2018-06-14] MEDS: ACETAMINOPHEN TAB 325 MG TAB PO PRN (08:56)
[2018-06-14] MEDS ORDERED: ENOXAPARIN 40 MG/0.4 ML SYRINGE SQ SCH (09:00)
[2018-06-14 12:10] LABS: Glucose,Whole Blood 191 mg/dL (75-99)
[2018-06-14] MEDS: INSULN ASP PRT/INSULIN ASPART 100 UNIT/ML 10 ML VIAL SQ SCH ×2 (12:35→17:51)
[2018-06-14] MEDS: NITROGLYCERIN SL TABS 0.4 MG TAB SUBLINGUAL PRN ×2 (16:08→18:19)
[2018-06-14 17:01] LABS: Glucose,Whole Blood 254 mg/dL (75-99)
[2018-06-14 18:26] LABS: Hemoglobin A1C 11.3 % (4.0-6.0)
[2018-06-14 19:05] LABS: Glucose,Whole Blood 214 mg/dL (75-99)
[2018-06-14 20:12] LABS: Glucose,Whole Blood 179 mg/dL (75-99)
--- NOTE | 2018-06-15 00:25 | HP ---
HISTORY AND PHYSICAL I am covering for Dr. Duff. DATE OF SERVICE: 06/14/2018. CHIEF COMPLAINT: Weakness. HISTORY OF PRESENT ILLNESS: This 82-year-old gentleman with a past medical history of multiple medical problems including history of CAD, chest pain, history of CVA, TIA, diabetes, hypertension, myocardial infarction, history of CAD, CABG, history of CAD and stent, being followed by Dr. Duff in the outpatient setting was apparently treated for UTI recently. The patient had fevers and the patient also had self catheterization for urinary obstruction. Because of increasing weakness and tiredness patient came to [facility] and was admitted for further evaluation and treatment. Features of UTI suspected. Cultures are pending. The patient was started on broad spectrum IV antibiotics. There is no history headache or loss of consciousness or seizures. PAST MEDICAL HISTORY: History of CAD, history of CVA, TIA, diabetes mellitus type 2, hypertension, history of myocardial infarction, history of urinary retention. MEDICATIONS: Prior to admission include home medications are: 1. Macrobid 100 mg p.o. b.i.d. 2. Norvasc 10 mg p.o. daily. 3. Zestril 10 mg p.o. 4. Imdur 30 mg p.o. daily. 5. Insulin NPH 70/30 p.r.n. 6. Lasix 40 mg. 7. Plavix 10 mg p.o. daily. ALLERGIES: IODINATED CONTRAST DYES. FAMILY HISTORY: History of diabetes in the family. SOCIAL HISTORY: Previous history of smoking. No history of current smoking or alcohol intake. REVIEW OF SYSTEMS: ENT: No diminished hearing or vision. CARDIOVASCULAR: No angina. GI: As mentioned. : As mentioned. LEGS: No edema. NERVOUS: No numbness or weakness. ALLERGY: No hayfever. MUSCULOSKELETAL: As mentioned. ENDOCRINE: Diabetes. CONSTITUTIONAL: As mentioned earlier. HEMATOLOGY: Negative. PSYCHIATRY: As mentioned. PHYSICAL EXAMINATION: Alert oriented x3. Pulse is 99. Blood pressure 160/77, respirations 19, temperature 99.1, pulse ox 94% on room air. HEENT: Conjunctivae normal. NECK: No JVD. CARDIOVASCULAR: S1 and S2 muffled. LUNGS: Breath sounds diminished in the bases. Scattered rhonchi and crackles. ABDOMEN: Soft, nontender. No mass palpable. LEGS: No edema. No swelling. NERVOUS SYSTEM: Higher functions as mentioned. Moves all limbs equally. SKIN: No rashes. JOINTS: No arthropathy. LABS: WBC 24.8, hemoglobin 11, sodium 130, potassium 5.2, creatinine is 1.89, glucose 307. UA noted. ASSESSMENT: 1. Acute urinary tract infection with sepsis present on admission with failure of outpatient treatment. 2. Urinary obstruction, on self-catheterization. 3. Diabetes type 2. 4. Increased creatinine with chronic kidney disease stage III. 5. Hyponatremia. 6. Hyperkalemia. 7. History of CAD. 8. History of cerebrovascular accident, transient ischemic attack. 9. Diabetes mellitus type 2. 10.Hypertension. 11.History of myocardial infarction. 12.History of vascular disorder with peripheral vascular disease. 13.History of CAD, CABG, stent. RECOMMENDATIONS AND DISCUSSION: This 82-year-old gentleman presented with multiple complex medical issues. Will monitor the patient closely, continue the current management and continue with broad-spectrum IV antibiotics. Obtain cultures. Also recommend resume home medications. DVT prophylaxis. Guarded prognosis because of multiple complex medical issues. Further recommendations to follow. MMODL / IJN: [id number] /
[2018-06-15] MEDS: AMPICILLIN-SULBACTAM 3 GM in SODIUM CHLORIDE 0.9% 100 ML IVPB SCH (05:00)
[2018-06-15 06:43] LABS: Glucose,Whole Blood 151 mg/dL (75-99)
[2018-06-15] MEDS: INSULIN ASPART (NovoLOG) 100 UNIT/ML VIAL SQ SCH ×4 (07:54→20:27)
[2018-06-15] MEDS: INSULN ASP PRT/INSULIN ASPART 100 UNIT/ML 10 ML VIAL SQ SCH ×2 (07:55→17:21)
[2018-06-15] MEDS: ISOSORBIDE MONONITRATE ER 30 MG TAB.ER.24H PO SCH (07:56)
[2018-06-15] MEDS: amLODIPine 10 MG TAB PO SCH (07:56)
[2018-06-15] MEDS: CLOPIDOGREL 75 MG TAB PO SCH (07:56)
[2018-06-15] MEDS: LISINOPRIL 10 MG TAB PO SCH (07:56)
[2018-06-15] MEDS: FUROSEMIDE 40 MG TAB PO SCH (07:57)
[2018-06-15] MEDS: ENOXAPARIN 30 MG/0.3 ML SYRINGE SQ SCH (07:57)
[2018-06-15] MEDS: GABAPENTIN 100 MG CAP PO PRN ×2 (08:51→19:12)
[2018-06-15] MEDS ORDERED: ENOXAPARIN 40 MG/0.4 ML SYRINGE SQ SCH (09:00)
--- NOTE | 2018-06-15 09:54 | P.CONS ---
History of Present Illness - Reason for Consult Consult date: 06/15/18 UTI - History of Present Illness This is an 82-year-old male who gives history of doing self- catheterization for the past 5 years due to urinary retention. He does not follow with a urologist. He states he came in the hospital due to weakness, fever and chills, lightheadedness and dizziness with decreased appetite. He states he has chronic decubitus increased appetite. He progressively was getting worse and came into [facility] emergency center for evaluation. He was afebrile, white count of 25.8, hemoglobin 11.5, platelet count 181. Sodium 136, potassium 5.2, chloride 105, CO2 20, BUN 47, creatinine 1.89. Blood sugars running in the 300s, hemoglobin A1c 11.3. ProBNP 2149, urinalysis was cloudy, leukoesterase moderate, white cells 65, wbc clumps moderate, bacteria many. Urine culture is positive for gram-negative bacilli and blood culture showing no growth after 24 hours. Patient did have an outpatient urine culture on June 06 that was klebsiella pansensitive except for ampicillin. A chest x-ray showed no acute cardiopulmonary process. Patient states he is still not feeling much improvement since he has been admitted. He continues to have decreased appetite and generalized weakness. He did have a recent fall where he lost his balance and cause injury to the left hand. Regarding his diabetes, he states for the past couple months his blood sugars up and running in the 200s consistently. He does not keep track of his hemoglobin A1c. Review of Systems All systems: negative Constitutional: Reports anorexia, Reports chills, Reports fatigue, Reports fever, Reports lethargy, Reports malaise, Reports poor appetite, Reports weakness Eyes: denies blurred vision, denies pain Ears, nose, mouth and throat: Denies dysphagia, Denies headache, Denies nasal congestion, Denies nasal discharge, Denies sore throat, Denies vertigo Cardiovascular: Denies chest pain, Denies shortness of breath Respiratory: Denies cough Gastrointestinal: Reports loss of appetite, Denies abdominal pain, Denies diarrhea, Denies nausea, Denies vomiting Genitourinary: Reports urinary retention, Denies dysuria, Denies flank pain Musculoskeletal: Reports gait dysfunction, Reports muscle weakness, Denies myalgias Integumentary: Reports wounds, Denies pruritus, Denies rash Neurological: Denies aphasia, Denies change in mentation, Denies confusion, Denies head injury, Denies numbness, Denies seizures, Denies weakness Psychiatric: Denies anxiety, Denies depression Endocrine: Denies fatigue, Denies weight change Past Medical History Past Medical History: Coronary Artery Disease (CAD), Chest Pain / Angina, CVA/TIA, Diabetes Mellitus, Hypertension, Myocardial Infarction (NE), Renal Disease, Vascular Disorder Additional Past Medical History / Comment(s): URINARY RETENTION pt thinks possible from effects from stroke as well as L arm/leg weakness, REQUIRING SELF CATH, IDDM type II, bilateral NEUROPATHY hands and feet, PVD, NE'S with last one being 04/09/16, CKD stage III, normocytic anemia, UTIs. Last Myocardial Infarction Date:: 2016 History of Any Multi-Drug Resistant Organisms: None Reported Past Surgical History: Coronary Bypass/CABG, Heart Catheterization, Heart Catheterization With Stent Additional Past Surgical History / Comment(s): 5 VESSLEL BYPASS 2006, stent RT leg , arthrectomy/stent March 2016, bilateral cataract removal with lens implants. Past Anesthesia/Blood Transfusion Reactions: No Reported Reaction Date of Last Stent Placement:: 2016 Past Psychological History: No Psychological Hx Reported Additional Psychological History / Comment(s): Pt resides with his spouse. His [id number] is their size worker and is with them daily. Pt normally can amb ulate with a walker. He no longer drives. His size worker takes him to appts. His size worker manages his medications. Smoking Status: Former smoker Past Alcohol Use History: None Reported Additional Past Alcohol Use History / Comment(s): Patient was a smoker one to 2 packs per day for 56 years and quit 10 years ago. Heavy etoh in the past - not current-quit 40 years ago. He denies any alcohol intake at this time. No mar ijuana or illicit drug use. 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 He lives at home with his . No pets in the home and no recent travel. He was in the [employer] stationed in [place]. Past Drug Use History: None Reported - Past Family History Brother(s) Family Medical History: Myocardial Infarction (NE) Mother Family Medical History: Diabetes Mellitus Additional Family Medical History / Comment(s): AT AGE 93 Father Family Medical History: Myocardial Infarction (NE) Additional Family Medical History / Comment(s): AT AGE 83 FROM NE. Medications and Allergies Home Medications Medication Instructions Recorded Confirmed Type Clopidogrel [Plavix] 75 mg PO DAILY #30 tab 11/20/15 06/13/18 Rx Isosorbide Mononitrate ER [Imdur] 30 mg PO DAILY #30 tab.er.24h 11/20/15 06/13/18 Rx Furosemide [Lasix] 40 mg PO DAILY 04/10/16 06/13/18 History Lisinopril [Zestril] 10 mg PO DAILY #30 tab 04/17/16 06/13/18 Rx amLODIPine [Norvasc] 10 mg PO DAILY #30 tab 04/17/16 06/13/18 Rx Insulin NPH Hum/Reg Insulin Hm See Protocol SQ DIRECTED 04/14/18 06/13/18 History [Novolin 70-30 Flexpen] Nitrofurantoin Monohyd/M-Cryst 100 mg PO BID 06/13/18 06/13/18 History [Macrobid] Allergies Allergy/AdvReac Type Severity Reaction Status Date / Time Iodinated Contrast- Oral and AdvReac Rash/Hives Verified 06/13/18 17:53 IV Dye Physical Exam Vitals: Vital Signs Temp Pulse Resp BP Pulse Ox 06/15/18 07:00 98.8 F 80 16 147/65 93 L 06/15/18 01:09 98.6 F 90 16 162/70 92 L 06/14/18 22:08 99.6 F 06/14/18 18:18 99.1 F 99 19 160/67 93 L 06/14/18 16:30 88 115/61 06/14/18 14:54 98.9 F 70 16 117/50 98 Intake and Output 06/14/18 06/15/18 06/15/18 22:59 06:59 14:59 Output Total 820 600 Balance -820 -600 Output: Urine 820 600 Uretheral (Alves) 600 Other: Voiding Method Self-Catheterization Gen: This is a thin 82-year-old male. Patient is resting in bed and appears to be tired but in no acute distress. HEENT: Head is atraumatic, normocephalic. Pupils equal, round. Sclerae is anicteric. Conjunctiva pink. Mucous members of the mouth are moist. Dentures are in place. NECK: Supple. No JVD. No lymphadenopathy. No thyromegaly. LUNGS: Clear to auscultation. No wheezes or rhonchi. No intercostal retracti ons. HEART: Regular rate and rhythm. No murmur. ABDOMEN: Soft. Bowel sounds are present. No masses. No tenderness. No suprapubic tenderness. No flank tenderness. EXTREMITIES: No pedal edema. No calf tenderness. Dorsalis pedis +1 bilaterally. NEUROLOGICAL: Patient is awake, alert and oriented x3. Cranial nerves 2 through 12 are grossly intact. Results Results: Laboratory Results WBC 25.8 k/uL (3.8-10.6) H 06/13/18 17: RBC 4.19 m/uL (4.30-5.90) L 06/13/18 17:29 Hgb 11.5 gm/dL (13.0-17.5) L 06/13/18 17: Hct 35.8 % (39.0-53.0) L 06/13/18 17: MCV 85.4 fL (80.0-100.0) 06/13/18 17: MCH 27.5 pg (25.0-35.0) 06/13/18 17: MCHC 32.2 g/dL (31.0-37.0) 06/13/18 17:29 RDW 13.8 % (11.5-15.5) 06/13/18 17:29 Plt Count 181 k/uL (150-450) 06/13/18 17:29 Neutrophils % 93 % 06/13/18 17: Lymphocytes % 4 % 06/13/18 17:29 Monocytes % 2 % 06/13/18 17:29 Eosinophils % 0 % 06/13/18 17: Basophils % 0 % 06/13/18 17:29 Neutrophils # 24.1 k/uL (1.3-7.7) H 06/13/18 17:29 Lymphocytes # 0.9 k/uL (1.0-4.8) L 06/13/18 17: Monocytes # 0.6 k/uL (0-1.0) 06/13/18 17: Eosinophils # 0.0 k/uL (0-0.7) 06/13/18 17:29 Basophils # 0.1 k/uL (0-0.2) 06/13/18 17:29 PT 11.0 sec (9.0-12.0) 06/13/18 17: INR 1.0 (<1.2) 06/13/18 17:29 APTT 25.7 sec (22.0-30.0) 06/13/18 17:29 Sodium 136 mmol/L (137-145) L 06/13/18 17:29 Potassium 5.2 mmol/L (3.5-5.1) H 06/13/18 17:29 Chloride 105 mmol/L (98-107) 06/13/18 17:29 Carbon Dioxide 20 mmol/L (22-30) L 06/13/18 17:29 Anion Gap 11 mmol/L 06/13/18 17:29 BUN 47 mg/dL (9-20) H 06/13/18 17:29 Creatinine 1.89 mg/dL (0.66-1.25) H 06/13/18 17:29 Est GFR (CKD-EPI)AfAm 38 (>60 ml/min/1.73 sqM) 06/13/18 17:29 Est GFR (CKD-EPI)NonAf 33 (>60 ml/min/1.73 sqM) 06/13/18 17:29 Glucose 353 mg/dL (74-99) H 06/13/18 17:29 POC Glucose (mg/dL) 151 mg/dL (75-99) H 06/15/18 06:42 POC Glu [employer] Resources District Manager ID Mita Fay 06/15/18 06:[address] Glu mg/dL 278 06/14/18 07:30 Hemoglobin A1c 11.3 % (4.0-6.0) H 06/14/18 07:30 Plasma Lactic Acid Trevor 1.9 mmol/L (0.7-2.0) 06/13/18 17:29 Calcium 9.2 mg/dL (8.4-10.2) 06/13/18 17:29 Phosphorus 3.2 mg/dL (2.5-4.5) 06/13/18 17:29 Magnesium 1.8 mg/dL (1.6-2.3) 06/13/18 17:29 Total Bilirubin 0.5 mg/dL (0.2-1.3) 06/13/18 17:29 AST 20 U/L (17-59) 06/13/18 17:29 ALT 29 U/L (21-72) 06/13/18 17:29 Alkaline Phosphatase 95 U/L (38-126) 06/13/18 17:29 Troponin I <0.012 ng/mL (0.000-0.034) 06/13/18 17: NT-Pro-B Natriuret Pep 2150 pg/mL 06/13/18 17:29 Total Protein 6.4 g/dL (6.3-8.2) 06/13/18 17: Albumin 3.6 g/dL (3.5-5.0) 06/13/18 17: Urine Color Yellow 06/13/18 17:29 Urine Appearance Cloudy (Clear) 06/13/18 17:29 Urine pH 5.0 (5.0-8.0) 06/13/18 17:29 Ur Specific Gilbert 1.014 (1.001-1.035) 06/13/18 17:29 Urine Protein 1+ (Negative) H 06/13/18 17:29 Urine Glucose (UA) 3+ (Negative) H 06/13/18 17:29 Urine Ketones Trace (Negative) H 06/13/18 17: Urine Blood Negative (Negative) 06/13/18 17: Urine Nitrite Negative (Negative) 06/13/18 17:29 Urine Bilirubin Negative (Negative) 06/13/18 17:29 Urine Urobilinogen <2.0 mg/dL (<2.0) 06/13/18 17:29 Ur Leukocyte Esterase Large (Negative) H 06/13/18 17:29 Urine WBC 65 /hpf (0-5) H 06/13/18 17:29 Urine WBC Clumps Moderate /hpf (None) H 06/13/18 17:29 Ur Squamous Epith Cells <1 /hpf (0-4) 06/13/18 17:29 Urine Bacteria Many /hpf (None) H 06/13/18 17:29 Hyaline Casts 4 /lpf (0-2) H 06/13/18 17:29 Urine Mucus Rare /hpf (None) H 06/13/18 17:29 CBC & Chem 7: 06/13/18 17:29 06/13/18 17:29 Labs: Abnormal Lab Results - Last 24 Hours (Table) 06/14/18 06/14/18 06/14/18 Range/Units 07:30 12:06 16:58 POC Glucose (mg/dL) 191 H 254 H (75-99) mg/dL Hemoglobin A1c 11.3 H (4.0-6.0) % 06/14/18 06/14/18 06/15/18 Range/Units 19:04 20:10 06:42 POC Glucose (mg/dL) 214 H 179 H 151 H (75-99) mg/dL Hemoglobin A1c (4.0-6.0) % Microbiology - Last 24 Hours (Table) 06/13/18 17:29 Blood Culture - Preliminary Blood No Growth after 24 hours 06/13/18 17:29 Urine Culture - Preliminary Urine,Voided Gram Neg Bacilli Assessment and Plan Plan: This is an 82-year-old male who presents to the hospital with signs of sepsis secondary to catheter associated urinary tract infection from self-cath eterization. He has been on Unasyn which will be changed to Rocephin as patient had a recent outpatient urine culture positive for Klebsiella that was pansensitive except for ampicillin. Urine culture on this admission is showing gram-negative bacilli. Blood cultures no growth after 24 hours. The patient understands he needs in improved blood sugar control. Continue supportive care. Further recommendations as patient progresses. The above dictated assessment and findings were discussed with Dr. Fan. The impression and plan of care have been directed as dictated. Aydee Rodriguez nurse practitioner acting as scribe for Dr. Fan.
[2018-06-15 11:08] LABS: Glucose,Whole Blood 236 mg/dL (75-99)
[2018-06-15] MEDS ORDERED: ARTIFICIAL TEARS-HYPROMELLOSE DROPS 15 ML BTL BOTH EYES PRN (15:42)
[2018-06-15 17:15] LABS: Glucose,Whole Blood 205 mg/dL (75-99)
--- NOTE | 2018-06-15 17:44 | PN ---
PROGRESS NOTE I am covering for Dr. Duff. DATE OF SERVICE: 06/15/2018 This 82-year-old gentleman who was admitted with UTI with failure of outpatient treatment has been closely monitored. Patient was started on IV antibiotics. The cultures showed gram-negative bacilli, but final ID is pending. No chest pain. No palpitations. No fever. PHYSICAL EXAMINATION: Alert and oriented x3. Pulse 82, blood pressure 161/67, respirations 15, temperature 97.5, pulse ox 94% on room air. HEENT: Conjunctivae normal. NECK: No jugular venous distention. CARDIOVASCULAR SYSTEM: S1, S2 muffled. RESPIRATORY SYSTEM: Breath sounds diminished at the bases. No rhonchi. No crackles. ABDOMEN: Soft, non-tender. No mass palpable. LEGS: No edema. No swelling. NERVOUS SYSTEM: Higher functions as mentioned earlier. Moves all 4 limbs. No focal motor or sensory deficit. LYMPHATICS: No lymph node palpable in neck, axillae or groin. SKIN: No ulcer, rash, bleeding. JOINTS: No active deforming arthropathy. REVIEW OF SYSTEMS: CARDIOVASCULAR SYSTEM: No angina, palpitations. RESPIRATORY SYSTEM: As mentioned earlier. GI: As mentioned earlier. : As mentioned earlier. NERVOUS SYSTEM: Diffusely weak. CURRENT MEDICATIONS: Reviewed. They include: 1. Tylenol 650 q.6 p.r.n. 2. Norvasc 5 mg. 3. Artificial Tears. 4. Rocephin 1 gram daily. 5. Plavix 75 mg daily. 6. Lovenox 30 mg subcutaneously. 7. Lasix 40 mg p.o. daily. 8. Neurontin 100 mg p.o. t.i.d. 9. NovoLog Mix. 10.Imdur. 11.Zestril. LABS: WBC 25.8, hemoglobin 11.5, sodium 136, potassium 5.2, creatinine 1.89. Glucose noted. UA noted. ASSESSMENT: 1. Acute urinary tract infection with sepsis, present on admission, with failure of outpatient treatment. 2. Urinary obstruction, on self-catheterization. 3. Increased white count. 4. Anemia, normocytic; anemia of chronic disease. 5. Hyponatremia. 6. Mild hyperkalemia. 7. Increased creatinine with chronic kidney disease, stage III. 8. Diabetes mellitus, type 2, uncontrolled, with hemoglobin A1c 11.3. 9. Hypercalcemia. 10.History of coronary artery disease. 11.History of cerebrovascular accident, transient ischemic attack. 12.Hypertension. 13.History of myocardial infarction. 14.History of vascular disorder with peripheral vascular disease. 15.History of coronary artery disease, coronary artery bypass grafting, stent. RECOMMENDATIONS AND DISCUSSION: In this 82-year-old gentleman who presented with multiple complex medical issues, we will monitor the patient closely, continue the current management, continue with symptomatic treatment. I recommend continuing with IV Rocephin. I would also recommend continuing with antibiotics and follow the cultures. I would also recommend insulin because of uncontrolled hemoglobin A1c. I would recommend 20 Lantus and meal coverage also. The prognosis is guarded because of multiple complex medical issues. Further recommendations to follow. The patient will be ideally discharged home on probably a single dose of long-acting insulin at this time. RUIZ / CHAPARRITA: [id number] /
[2018-06-15 18:17] LABS: Basophils % (A) 0 %; Eosinophils # (A) 0.2 k/uL (0-0.7); Eosinophils % (A) 2 %; HCT 35.3 % (39.0-53.0); HGB 11.8 gm/dL (13.0-17.5); Lymphocytes # (A) 1.3 k/uL (1.0-4.8); Lymphocytes % (A) 13 %; MCH 28.2 pg (25.0-35.0); MCHC 33.5 g/dL (31.0-37.0); MCV 84.3 fL (80.0-100.0); Mean Platelet Volume 7.4; Monocytes # (A) 0.4 k/uL (0-1.0); Monocytes % (A) 4 %; Neutrophils # (A) 8.4 k/uL (1.3-7.7); Neutrophils % (A) 80 %; Platelet Count 171 k/uL (150-450); RBC 4.19 m/uL (4.30-5.90); RDW 13.8 % (11.5-15.5); WBC 10.5 k/uL (3.8-10.6)
[2018-06-15 18:33] LABS: Calcium 8.8 mg/dL (8.4-10.2); Potassium 4.3 mmol/L (3.5-5.1)
[2018-06-15 20:01] LABS: Glucose,Whole Blood 173 mg/dL (75-99)
[2018-06-15] MEDS: INSULIN DETEMIR (LEVEMIR) 100 UNIT/ML SYR SQ SCH (20:29)
[2018-06-15] MEDS: ACETAMINOPHEN TAB 325 MG TAB PO PRN (20:34)
--- NOTE | 2018-06-15 23:16 | P.CON ---
Consult Note - . Consult date: 06/15/18 Assessment/Plan:: This is an 82-year-old male who gives history of doing self- catheterization for the past 5 years due to urinary retention. He does not follow with a urologist. He states he came in the hospital due to weakness, fever and chills, lightheadedness and dizziness with decreased appetite. He states he has chronic decubitus increased appetite. He progressively was getting worse and came into [facility] emergency center for evaluation. He was afebrile, white count of 25.8, hemoglobin 11.5, platelet count 181. Sodium 136, potassium 5.2, chloride 105, CO2 20, BUN 47, creatinine 1.89. Blood sugars running in the 300s, hemoglobin A1c 11.3. ProBNP 2149, urinalysis was cloudy, leukoesterase moderate, white cells 65, wbc clumps moderate, bacteria many. Urine culture is positive for gram-negative bacilli and blood culture showing no growth after 24 hours. Patient did have an outpatient urine culture on June 06 that was klebsiella pansensitive except for ampicillin. A chest x-ray showed no acute cardiopulmonary process. Patient states he is still not feeling much improvement since he has been admitted. He continues to have decreased appetite and generalized weakness. He did have a recent fall where he lost his balance and cause injury to the left hand. Regarding his diabetes, he states for the past couple months his blood sugars up and running in the 200s consistently. He does not keep track of his hemoglobin A1c. Please see the consult note as dictated by nurse practitioner Delilah Aydee Rodriguez. 82-year-old male who has urinary retention and utilizes straight catheterization 5 times per day. Relates that he uses a fresh catheter every time it does use a fresh package of lubricant every time. Presents to Hospital evidence of gram- negative sepsis and gram-negative urinary tract infection. He is starting to feel better once hydration and antibiotic therapy has occurred. He did have a fall before admission and feels much more stable now. He does have chronic hyperglycemia and elevated hemoglobin A1c. We discussed the elevated blood sugar results in clinic. Which then increases urinary tract infections. Hopefully he will be able to have improved glucose control which may reduce his infections. He has a highly susceptible Klebsiella and likely will be discharged home on oral therapy such as cefuroxime when ready. I agree with evaluation, assessment and plan as dictated by nurse practitioner Mrs. Aydee Rodriguez.
[2018-06-16] MEDS: ACETAMINOPHEN TAB 325 MG TAB PO PRN ×2 (02:14→18:52)
[2018-06-16 07:06] LABS: Glucose,Whole Blood 83 mg/dL (75-99)
[2018-06-16 07:35] LABS: Basophils % (A) 0 %; Eosinophils # (A) 0.2 k/uL (0-0.7); Eosinophils % (A) 2 %; HCT 35.2 % (39.0-53.0); HGB 11.1 gm/dL (13.0-17.5); Lymphocytes # (A) 1.5 k/uL (1.0-4.8); Lymphocytes % (A) 17 %; MCHC 31.5 g/dL (31.0-37.0); MCV 82.4 fL (80.0-100.0); Mean Platelet Volume 6.9; Monocytes # (A) 0.5 k/uL (0-1.0); Monocytes % (A) 6 %; Neutrophils # (A) 6.7 k/uL (1.3-7.7); Neutrophils % (A) 74 %; Platelet Count 194 k/uL (150-450); RBC 4.27 m/uL (4.30-5.90); RDW 13.5 % (11.5-15.5); WBC 9.1 k/uL (3.8-10.6)
[2018-06-16 07:41] LABS: Calcium 8.9 mg/dL (8.4-10.2); Potassium 4.1 mmol/L (3.5-5.1)
[2018-06-16] MEDS: INSULIN ASPART (NovoLOG) 100 UNIT/ML VIAL SQ SCH ×4 (08:08→20:50)
[2018-06-16] MEDS: INSULN ASP PRT/INSULIN ASPART 100 UNIT/ML 10 ML VIAL SQ SCH ×3 (08:08→12:07)
[2018-06-16] MEDS: CLOPIDOGREL 75 MG TAB PO SCH (08:18)
[2018-06-16] MEDS: LISINOPRIL 10 MG TAB PO SCH (08:18)
[2018-06-16] MEDS: ISOSORBIDE MONONITRATE ER 30 MG TAB.ER.24H PO SCH (08:19)
[2018-06-16] MEDS: ENOXAPARIN 30 MG/0.3 ML SYRINGE SQ SCH (08:19)
[2018-06-16] MEDS: amLODIPine 10 MG TAB PO SCH (08:19)
[2018-06-16] MEDS: FUROSEMIDE 40 MG TAB PO SCH (08:19)
[2018-06-16 11:57] LABS: Glucose,Whole Blood 247 mg/dL (75-99)
[2018-06-16 17:10] LABS: Glucose,Whole Blood 190 mg/dL (75-99)
[2018-06-16] MEDS: GABAPENTIN 100 MG CAP PO PRN (18:56)
[2018-06-16 20:16] LABS: Glucose,Whole Blood 205 mg/dL (75-99)
[2018-06-16] MEDS ORDERED: LISINOPRIL 10 MG TAB PO STA (20:40)
[2018-06-16] MEDS: INSULIN DETEMIR (LEVEMIR) 100 UNIT/ML SYR SQ SCH (20:50)
--- NOTE | 2018-06-16 22:12 | PN ---
PROGRESS NOTE I am covering for Dr. Duff. DATE OF SERVICE: 06/16/2018 DATE OF SERVICE: This 82-year-old gentleman admitted with UTI, had Klebsiella pneumoniae which is sensitive to multiple antibiotics. No chest pain. No palpitations. No fever. EXAM: Alert and oriented x3. Pulse 73, blood pressure is 174/69, respiratory 20, Temperature 98.2, pulse ox 94% on room air. HEENT: Conjunctivae normal. NECK: No jugular venous distention. CARDIOVASCULAR: S1, S2 muffled. RESPIRATORY: Breath sounds diminished in the bases. No rhonchi. No crackles. ABDOMEN is soft, nontender. No mass palpable. LEGS are no edema. No swelling. CENTRAL NERVOUS SYSTEM: No focal deficits. LABS: Labs are at this time WBC 9.1, hemoglobin 11.1 otherwise noted. ASSESSMENT: 1. Acute urinary tract infection with sepsis present on admission with failure of outpatient treatment with Klebsiella pneumonia. Related to possibly self catheterization. 2. Ureteral obstruction, self catheterization. 3. Increased WBC. 4. Anemia, normocytic anemia chronic disease. 5. Hyponatremia. 6. Mild hyperkalemia. 7. Increased creatinine with chronic kidney disease stage III. 8. Diabetes type 2, uncontrolled, with hemoglobin A1c 11.3. 9. Hypercalcemia. 10.History of coronary artery disease. 11.History of cerebrovascular accident, transient ischemic attack. 12.Hypertension. 13.History of myocardial infarction. 14.History of vascular disorder with peripheral vascular disease. 15.Coronary artery disease, coronary artery bypass grafting, stent. RECOMMENDATIONS AND DISCUSSION: Recommend to continue current medications, continue to monitor, and symptomatic treatment. Currently the blood sugar is better controlled. I would recommend continue the antibiotics and closely follow with you. Currently patient is on Rocephin. Will closely follow with Infectious Disease. Guarded prognosis. Further recommendations to follow. MMODL / IJN: [id number] /
--- NOTE | 2018-06-17 00:20 | P.PN ---
Subjective Progress Note Date: 06/16/18 This is an 82-year-old male who gives history of doing self- catheterization for the past 5 years due to urinary retention. He does not follow with a urologist. He states he came in the hospital due to weakness, fever and chills, lightheadedness and dizziness with decreased appetite. He states he has chronic decubitus increased appetite. He progressively was getting worse and came into [facility] emergency center for evaluation. He was afebrile, white count of 25.8, hemoglobin 11.5, platelet count 181. Sodium 136, potassium 5.2, chloride 105, CO2 20, BUN 47, creatinine 1.89. Blood sugars running in the 300s, hemoglobin A1c 11.3. ProBNP 2149, urinalysis was cloudy, leukoesterase moderate, white cells 65, wbc clumps moderate, bacteria many. Urine culture is positive for gram-negative bacilli and blood culture showing no growth after 24 hours. Patient did have an outpatient urine culture on June 06 that was klebsiella pansensitive except for ampicillin. A chest x-ray showed no acute cardiopulmonary process. Patient states he is still not feeling much improvement since he has been admitted. He continues to have decreased appetite and generalized weakness. He did have a recent fall where he lost his balance and cause injury to the left hand. Regarding his diabetes, he states for the past couple months his blood sugars up and running in the 200s consistently. He does not keep track of his hemoglobin A1c. 06/16/2018 the patient is feeling somewhat better. He is denying intramucosal. He is working to improve his appetite. He's having no difficulty with straight catheterization. Objective - Vital Signs Vital signs: Vital Signs Temp 98.2 F 06/16/18 19:33 Pulse 90 06/16/18 19:33 Resp 18 06/16/18 19:33 BP 174/62 06/16/18 19:33 Pulse Ox 93 L 06/16/18 19:33 Intake & Output 06/16/18 06/16/18 06/17/18 06:59 18:59 06:59 Intake Total 430 100 540 Output Total 1500 1000 300 Balance -1070 -900 240 Intake: Intake, IV Titration 150 100 Amount cefTRIAXone 1 gm In 150 100 Sodium Chloride 0.9% 50 ml @ 100 mls/hr IVPB Q24HR [facility] Rx#:[id number] Oral 280 540 Output: Urine 1500 1000 300 Straight 300 Uretheral (Alves) 1500 500 Other: Voiding Method Self-Catheterization Self-Catheterization Self-Catheterization - Exam Gen: This is a thin 82-year-old male. Patient is resting in bed and appears to be tired but in no acute distress. HEENT: Head is atraumatic, normocephalic. Pupils equal, round. Sclerae is anicteric. Conjunctiva pink. Mucous members of the mouth are moist. Dentures are in place. NECK: Supple. No JVD. No lymphadenopathy. No thyromegaly. LUNGS: Clear to auscultation. No wheezes or rhonchi. No intercostal retractions. HEART: Regular rate and rhythm. No murmur. ABDOMEN: Soft. Bowel sounds are present. No masses. No tenderness. No suprapubic tenderness. No flank tenderness. EXTREMITIES: No pedal edema. No calf tenderness. Dorsalis pedis +1 bilaterally. NEUROLOGICAL: Patient is awake, alert and oriented x3 - Labs CBC & Chem 7: 06/16/18 06:27 06/16/18 06:27 Labs: Abnormal Lab Results - Last 24 Hours (Table) 06/16/18 06/16/18 06/16/18 Range/Units 06:27 06:27 11:45 RBC 4.27 L (4.30-5.90) m/uL Hgb 11.1 L (13.0-17.5) gm/dL Hct 35.2 L (39.0-53.0) % Chloride 112 H (98-107) mmol/L BUN 27 H (9-20) mg/dL Glucose 73 L (74-99) mg/dL POC Glucose (mg/dL) 247 H (75-99) mg/dL 06/16/18 06/16/18 Range/Units 17:08 20:04 RBC (4.30-5.90) m/uL Hgb (13.0-17.5) gm/dL Hct (39.0-53.0) % Chloride (98-107) mmol/L BUN (9-20) mg/dL Glucose (74-99) mg/dL POC Glucose (mg/dL) 190 H 205 H (75-99) mg/dL Microbiology - Last 24 Hours (Table) 06/13/18 17:29 Blood Culture - Preliminary Blood No Growth after 72 hours Laboratory Results WBC 9.1 k/uL (3.8-10.6) 06/16/18 06:27 RBC 4.27 m/uL (4.30-5.90) L 06/16/18 06:27 Hgb 11.1 gm/dL (13.0-17.5) L 06/16/18 06:27 Hct 35.2 % (39.0-53.0) L 06/16/18 06:27 MCV 82.4 fL (80.0-100.0) 06/16/18 06:27 MCH 26.0 pg (25.0-35.0) 06/16/18 06: MCHC 31.5 g/dL (31.0-37.0) 06/16/18 06:27 RDW 13.5 % (11.5-15.5) 06/16/18 06:27 Plt Count 194 k/uL (150-450) 06/16/18 06:27 Neutrophils % 74 % 06/16/18 06:27 Lymphocytes % 17 % 06/16/18 06:27 Monocytes % 6 % 06/16/18 06:27 Eosinophils % 2 % 06/16/18 06:27 Basophils % 0 % 06/16/18 06:27 Neutrophils # 6.7 k/uL (1.3-7.7) 06/16/18 06:27 Lymphocytes # 1.5 k/uL (1.0-4.8) 06/16/18 06:27 Monocytes # 0.5 k/uL (0-1.0) 06/16/18 06:27 Eosinophils # 0.2 k/uL (0-0.7) 06/16/18 06:27 Basophils # 0.0 k/uL (0-0.2) 06/16/18 06:27 PT 11.0 sec (9.0-12.0) 06/13/18 17: INR 1.0 (<1.2) 06/13/18 17:29 APTT 25.7 sec (22.0-30.0) 06/13/18 17:29 Sodium 142 mmol/L (137-145) 06/16/18 06:27 Potassium 4.1 mmol/L (3.5-5.1) 06/16/18 06:27 Chloride 112 mmol/L (98-107) H 06/16/18 06:27 Carbon Dioxide 22 mmol/L (22-30) 06/16/18 06:27 Anion Gap 8 mmol/L 06/16/18 06:27 BUN 27 mg/dL (9-20) H 06/16/18 06:27 Creatinine 1.17 mg/dL (0.66-1.25) 06/16/18 06:27 Est GFR (CKD-EPI)AfAm 67 (>60 ml/min/1.73 sqM) 06/16/18 06:27 Est GFR (CKD-EPI)NonAf 58 (>60 ml/min/1.73 sqM) 06/16/18 06:27 Glucose 73 mg/dL (74-99) L 06/16/18 06:27 POC Glucose (mg/dL) 205 mg/dL (75-99) H 06/16/18 20:04 POC Glu [employer] Associate Maty Fuentes 06/16/18 20:[address] Glu mg/dL 278 06/14/18 07:30 Hemoglobin A1c 11.3 % (4.0-6.0) H 06/14/18 07:30 Plasma Lactic Acid Trevor 1.9 mmol/L (0.7-2.0) 06/13/18 17:29 Calcium 8.9 mg/dL (8.4-10.2) 06/16/18 06:27 Phosphorus 3.2 mg/dL (2.5-4.5) 06/13/18 17:29 Magnesium 1.8 mg/dL (1.6-2.3) 06/13/18 17:29 Total Bilirubin 0.5 mg/dL (0.2-1.3) 06/13/18 17:29 AST 20 U/L (17-59) 06/13/18 17:29 ALT 29 U/L (21-72) 06/13/18 17:29 Alkaline Phosphatase 95 U/L (38-126) 06/13/18 17:29 Troponin I <0.012 ng/mL (0.000-0.034) 06/13/18 17:29 NT-Pro-B Natriuret Pep 2150 pg/mL 06/13/18 17:29 Total Protein 6.4 g/dL (6.3-8.2) 06/13/18 17: Albumin 3.6 g/dL (3.5-5.0) 06/13/18 17: Urine Color Yellow 06/13/18 17:29 Urine Appearance Cloudy (Clear) 06/13/18 17: Urine pH 5.0 (5.0-8.0) 06/13/18 17: Ur Specific [place] 1.014 (1.001-1.035) 06/13/18 17: Urine Protein 1+ (Negative) H 06/13/18 17: Urine Glucose (UA) 3+ (Negative) H 06/13/18 17: Urine Ketones Trace (Negative) H 06/13/18 17: Urine Blood Negative (Negative) 06/13/18 17: Urine Nitrite Negative (Negative) 06/13/18 17: Urine Bilirubin Negative (Negative) 06/13/18 17: Urine Urobilinogen <2.0 mg/dL (<2.0) 06/13/18 17:29 Ur Leukocyte Esterase Large (Negative) H 06/13/18 17:29 Urine WBC 65 /hpf (0-5) H 06/13/18 17:29 Urine WBC Clumps Moderate /hpf (None) H 06/13/18 17:29 Ur Squamous Epith Cells <1 /hpf (0-4) 06/13/18 17:29 Urine Bacteria Many /hpf (None) H 06/13/18 17: Hyaline Casts 4 /lpf (0-2) H 06/13/18 17:29 Urine Mucus Rare /hpf (None) H 06/13/18 17:29 Microbiology 06/13/18 17:29 Blood Blood Culture - Preliminary No Growth after 72 hours 06/13/18 17:29 Urine,Voided Urine Culture - Final Klebsiella pneumoniae Assessment and Plan (1) Acute urinary tract infection Narrative/Plan: 82-year-old male who has urinary retention and utilizes straight catheterization 5 times per day. Relates that he uses a fresh catheter every time it does use a fresh package of lubricant every time. Presents to Hospital evidence of gram- negative sepsis and gram-negative urinary tract infection. He is starting to feel better once hydration and antibiotic therapy has occurred. He did have a fall before admission and feels much more stable now. He does have chronic hyperglycemia and elevated hemoglobin A1c. We discussed the elevated blood sugar results in clinic. Which then increases urinary tract infections. Hopefully he will be able to have improved glucose control which may reduce his infections. He has a highly susceptible Klebsiella and likely will be discharged home on oral therapy such as cefuroxime when ready. 06/16/2018 patient is feeling somewhat better today. He is tolerating nutrition better. Blood sugars remained somewhat high but they are improving. We again discussed the importance of improved glucose control to reduce the risk of infection. He is using a fresh catheter every time. He does not reuse the packets of lubricants all of which help reduce the risk of infection. Transition to oral antibiotic therapy and for discharge likely tomorrow if there are no other acute changes. Current Visit: No Status: Acute Priority: High Code(s): N39.0 - URINARY TRACT INFECTION, SITE NOT SPECIFIED SNOMED Code(s): 971887421 (2) Urinary retention Current Visit: No Status: Acute Priority: Medium Code(s): R33.9 - RETENTION OF URINE, UNSPECIFIED SNOMED Code(s): 491540612
[2018-06-17 01:54] VITALS: RESP 16
[2018-06-17 07:11] LABS: Glucose,Whole Blood 108 mg/dL (75-99)
[2018-06-17 08:08] LABS: Basophils % (A) 0 %; Eosinophils # (A) 0.2 k/uL (0-0.7); Eosinophils % (A) 2 %; HCT 35.7 % (39.0-53.0); HGB 11.2 gm/dL (13.0-17.5); Lymphocytes # (A) 1.7 k/uL (1.0-4.8); Lymphocytes % (A) 20 %; MCH 26.1 pg (25.0-35.0); MCHC 31.3 g/dL (31.0-37.0); MCV 83.4 fL (80.0-100.0); Mean Platelet Volume 7.1; Monocytes # (A) 0.5 k/uL (0-1.0); Monocytes % (A) 5 %; Neutrophils % (A) 70 %; Platelet Count 219 k/uL (150-450); RBC 4.29 m/uL (4.30-5.90); RDW 13.6 % (11.5-15.5); WBC 8.5 k/uL (3.8-10.6)
[2018-06-17 08:26] LABS: Potassium 3.9 mmol/L (3.5-5.1)
[2018-06-17 08:29] VITALS: BP 167/72; PULSE 71; TEMP 98.7
[2018-06-17] MEDS: CLOPIDOGREL 75 MG TAB PO SCH (08:37)
[2018-06-17] MEDS: ISOSORBIDE MONONITRATE ER 30 MG TAB.ER.24H PO SCH (08:37)
[2018-06-17] MEDS: amLODIPine 10 MG TAB PO SCH (08:37)
[2018-06-17] MEDS: FUROSEMIDE 40 MG TAB PO SCH (08:37)
[2018-06-17] MEDS: ENOXAPARIN 30 MG/0.3 ML SYRINGE SQ SCH (08:37)
[2018-06-17] MEDS: INSULIN ASPART (NovoLOG) 100 UNIT/ML VIAL SQ SCH ×2 (08:38→12:01)
[2018-06-17] MEDS: ACETAMINOPHEN TAB 325 MG TAB PO PRN (08:42)
[2018-06-17] MEDS: GABAPENTIN 100 MG CAP PO PRN (08:42)
[2018-06-17 11:58] LABS: Glucose,Whole Blood 125 mg/dL (75-99)
[2018-06-17] MEDS ORDERED: LISINOPRIL 10 MG TAB PO SCH (21:00)
--- NOTE | 2018-06-18 00:12 | DS ---
DISCHARGE SUMMARY DATE OF SERVICE: 06/17/2018. FINAL DIAGNOSES: 1. Acute urinary tract infection with sepsis present on admission with failure of outpatient treatment with Klebsiella pneumonia related possibly to self catheterization. 2. Urinary obstructions self catheterization. 3. Increased WBC. 4. Anemia, normocytic anemia of chronic disease. 5. Hyponatremia. 6. Mild hyperkalemia. 7. Increased creatinine with chronic kidney stage III. 8. Diabetes type 2, uncontrolled with a hemoglobin A1c 11.2. 9. Hypercalcemia. 10.History of coronary artery disease. 11.History of cerebrovascular accident, transient ischemic attack. 12.Hypertension. 13.History of myocardial infarction. 14.History of vascular disorder with peripheral vascular disease. 15.History of coronary artery disease, coronary artery bypass grafting, stent. DISCHARGE DISPOSITION: The patient is being discharged in stable condition with guarded prognosis. HISTORY OF PRESENT ILLNESS: This 82-year-old gentleman with past medical history of multiple medical problems as mentioned earlier being followed by in the outpatient setting, presented with UTI, Klebsiella grown from the culture, treated with IV antibiotic, Dr. Fan, Infectious Disease saw the patient and care was coordinated. The patient improved significantly but however the blood sugar is uncontrolled. The patient is rather noncompliant with medications. Recommended sterile techniques for self catheterization. On exam vitals are stable. Cardiovascular: S1, S2. Abdomen soft. Nervous System: No focal deficits. DISCHARGE ADVICE AND MEDICATIONS: 1. Diet is cardiac diet. 2. Activity limited until followup. 3. Follow up with Dr. Duff in 2-3 days. MEDICATIONS ARE: As follows medications are: 1. Lasix 40 mg p.o. daily. 2. Insulin NPH as before . 3. Ceftin 500 mg p.o. b.i.d. 4. Imdur 30 mg. 5. Levemir 20 units subcu q.h.s. 6. Norvasc 10 mg p.o. daily. 7. Plavix 75 mg daily. 8. Zestril 10 mg p.o. daily. Once again, the patient is being discharged in stable condition with guarded prognosis. MMODL / IJN: [id number] / MTDD
== END 2018-06-17 15:46 | disposition home or self-care (01) | DRG 698 ==
LOC: EC 17:03 → 4SSUR 19:11
PROVIDERS: ADMIT Hospitalist; ATTEND Hospitalist
DX: T83.518A Infection and inflammatory reaction due to other urinary catheter, initial encounter (principal); A41.89 Other specified sepsis; E87.1 Hypo-osmolality and hyponatremia; D63.8 Anemia in other chronic diseases classified elsewhere; E11.22 Type 2 diabetes mellitus with diabetic chronic kidney disease; E11.51 Type 2 diabetes mellitus with diabetic peripheral angiopathy without gangrene; E11.65 Type 2 diabetes mellitus with hyperglycemia; E83.52 Hypercalcemia; E87.5 Hyperkalemia; I12.9 Hypertensive chronic kidney disease with stage 1 through stage 4 chronic kidney disease, or unspecified chronic kidney disease; I25.10 Atherosclerotic heart disease of native coronary artery without angina pectoris; I25.2 Old myocardial infarction; N18.3 Chronic kidney disease, stage 3 (moderate); Z79.02 Long term (current) use of antithrombotics/antiplatelets; Z79.899 Other long term (current) drug therapy; Z82.49 Family history of ischemic heart disease and other diseases of the circulatory system; Z83.3 Family history of diabetes mellitus; Z86.73 Personal history of transient ischemic attack (TIA), and cerebral infarction without residual deficits; Z87.891 Personal history of nicotine dependence; Z91.14 Patient's other noncompliance with medication regimen; Z95.1 Presence of aortocoronary bypass graft; Z95.5 Presence of coronary angioplasty implant and graft; Z96.1 Presence of intraocular lens; Z98.41 Cataract extraction status, right eye; Z98.42 Cataract extraction status, left eye; Z91.041 Radiographic dye allergy status; Z79.4 Long term (current) use of insulin; N13.9 Obstructive and reflux uropathy, unspecified
CPT/HCPCS: 36415; 71046; 80048; 80053; 81001; 83036; 83605; 83735; 83880; 84100; 84484; 85025; 85610; 85730; 87040; 87077; 87086; 87186; 93005; 96361; 96365; 99285

== ENCOUNTER 2021-05-08 17:54 | Inpatient (IN) | payer MEDICARE, BC ==
[2021-05-08] MEDS ORDERED: SODIUM CHLORIDE 0.9% 1,000 ML IV STA ×2 (18:23→20:38)
[2021-05-08] MEDS ORDERED: HYDROmorphone 1 MG/ML 1 ML SYRINGE IVP STA (18:23)
--- NOTE | 2021-05-08 18:26 | ED ---
Weakness HPI - General Chief complaint: Weakness Stated complaint: weakness Time Seen by Provider: 05/08/21 18:00 Source: patient, EMS, RN notes reviewed, old records reviewed Mode of arrival: EMS Limitations: no limitations - History of Present Illness Initial comments: This is an 85-year-old male with a history of multiple medical issues including peripheral neuropathy heart disease who presented by EMS with complaints of lower extremity weakness which is worse than usual today. He was unable himself out of bed today. EMS was called he was no trauma reported. Patient is complaining of 10/10 bilateral foot pain he believes is secondary to his neuropathy. He did not take any medications since this morning No fevers chills nausea vomiting sweats no chest pain of note patient does self cath himself. MD Complaint: generalized weakness, difficulty walking - Related Data Home Medications Medication Instructions Recorded Confirmed Furosemide [Lasix] 40 mg PO DAILY 04/10/16 06/13/18 Insulin NPH Hum/Reg Insulin Hm See Protocol SQ DIRECTED 04/14/18 06/13/18 [Novolin 70-30 Flexpen] Previous Rx's Medication Instructions Recorded Clopidogrel [Plavix] 75 mg PO DAILY #30 tab 11/20/15 Isosorbide Mononitrate ER [Imdur] 30 mg PO DAILY #30 tab.er.24h 11/20/15 amLODIPine [Norvasc] 10 mg PO DAILY #30 tab 04/17/16 lisinopriL [Zestril] 10 mg PO DAILY #30 tab 04/17/16 Cefuroxime Axetil [Ceftin] 500 mg PO BID #14 tab 06/17/18 Insulin Detemir (Levemir) [Levemir] 20 unit SQ HS #1 vial 06/17/18 Allergies Allergy/AdvReac Type Severity Reaction Status Date / Time Iodinated Contrast Media AdvReac Rash/Hives Verified 05/08/21 18:02 Review of Systems ROS Statement: Those systems with pertinent positive or pertinent negative responses have been documented in the HPI. ROS Other: All systems not noted in ROS Statement are negative. Past Medical History Past Medical History: Coronary Artery Disease (CAD), Chest Pain / Angina, CVA/TIA, Diabetes Mellitus, Hypertension, Myocardial Infarction (LA), Renal Disease, Vascular Disorder Additional Past Medical History / Comment(s): URINARY RETENTION pt thinks possible from effects from stroke as well as L arm/leg weakness, REQUIRING SELF CATH, IDDM type II, bilateral NEUROPATHY hands and feet, PVD, LA'S with last one being 04/09/16, CKD stage III, normocytic anemia, UTIs. Last Myocardial Infarction Date:: 2016 History of Any Multi-Drug Resistant Organisms: None Reported Past Surgical History: Coronary Bypass/CABG, Heart Catheterization, Heart Catheterization With Stent Additional Past Surgical History / Comment(s): 5 VESSLEL BYPASS 2006, stent RT leg , arthrectomy/stent March 2016, bilateral cataract removal with lens implants. Past Anesthesia/Blood Transfusion Reactions: No Reported Reaction Date of Last Stent Placement:: 2016 Past Psychological History: No Psychological Hx Reported Smoking Status: Never smoker Past Alcohol Use History: None Reported Past Drug Use History: None Reported - Past Family History Brother(s) Family Medical History: Myocardial Infarction ([place]) Mother Family Medical History: Diabetes Mellitus Additional Family Medical History / Comment(s): AT AGE 93 Father Family Medical History: Myocardial Infarction ([place]) Additional Family Medical History / Comment(s): AT AGE 83 FROM [place]. General Exam - General Exam Comments Initial Comments: This is a well-developed well-nourished awake alert oriented 3 male Limitations: no limitations General appearance: alert, in no apparent distress Head exam: Present: atraumatic, normocephalic, normal inspection Eye exam: Present: normal appearance, PERRL, EOMI. Absent: scleral icterus, conjunctival injection, periorbital swelling ENT exam: Present: mucous membranes dry Neck exam: Present: normal inspection. Absent: tenderness, meningismus, lymphadenopathy Respiratory exam: Present: normal lung sounds bilaterally. Absent: respiratory distress, wheezes, rales, rhonchi, stridor Cardiovascular Exam: Present: regular rate, normal rhythm, normal heart sounds. Absent: systolic murmur, diastolic murmur, rubs, gallop, clicks GI/Abdominal exam: Present: soft, normal bowel sounds. Absent: distended, tenderness, guarding, rebound, rigid, bruit, pulsatile mass Rectal exam: Present: deferred exam: Present: normal inspection Extremities exam: Present: full ROM, normal capillary refill, other (Stasis dermatitis changes). Absent: tenderness, pedal edema, joint swelling, calf tenderness Back exam: Present: normal inspection Neurological exam: Present: alert, oriented X3, CN II-XII intact Psychiatric exam: Present: normal affect, normal mood Skin exam: Present: warm, dry, intact, normal color. Absent: rash Course Vital Signs 05/08/21 17:55 Temperature 98.3 F Pulse Rate 72 Respiratory 18 Rate Blood Pressure 125/46 O2 Sat by Pulse 98 Oximetry Medical Decision Making - Medical Decision Making I did discuss findings with patient family patient does demonstrate evidence of UTI as well as dehydration and the aforementioned weakness. Patient will be admitted to Dr. Obrien's group. - Lab Data Result diagrams: 05/08/21 18:56 05/08/21 18:56 Lab Results 05/08/21 05/08/21 05/08/21 Range/Units 18:56 18:56 18:56 WBC 6.2 (3.8-10.6) k/uL RBC 4.35 (4.30-5.90) m/uL Hgb 12.2 L (13.0-17.5) gm/dL Hct 37.3 L (39.0-53.0) % MCV 85.8 (80.0-100.0) fL MCH 28.1 (25.0-35.0) pg MCHC 32.7 (31.0-37.0) g/dL RDW 14.0 (11.5-15.5) % Plt Count 221 (150-450) k/uL MPV 7.4 Neutrophils % 70 % Lymphocytes % 16 % Monocytes % 9 % Eosinophils % 2 % Basophils % 1 % Neutrophils # 4.4 (1.3-7.7) k/uL Lymphocytes # 1.0 (1.0-4.8) k/uL Monocytes # 0.6 (0-1.0) k/uL Eosinophils # 0.1 (0-0.7) k/uL Basophils # 0.1 (0-0.2) k/uL Sodium 135 L (137-145) mmol/L Potassium 4.5 (3.5-5.1) mmol/L Chloride 103 (98-107) mmol/L Carbon Dioxide 23 (22-30) mmol/L Anion Gap 9 mmol/L BUN 44 H (9-20) mg/dL Creatinine 1.80 H (0.66-1.25) mg/dL Est GFR (CKD-EPI)AfAm 39 (>60 ml/min/1.73 sqM) Est GFR (CKD-EPI)NonAf 34 (>60 ml/min/1.73 sqM) Glucose 204 H (74-99) mg/dL Calcium 9.0 (8.4-10.2) mg/dL Magnesium 2.1 (1.6-2.3) mg/dL Total Bilirubin 0.5 (0.2-1.3) mg/dL AST 21 (17-59) U/L ALT 16 (4-49) U/L Alkaline Phosphatase 113 (38-126) U/L Creatine Kinase 37 L (55-170) U/L Troponin I (0.000-0.034) ng/mL Total Protein 6.7 (6.3-8.2) g/dL Albumin 3.4 L (3.5-5.0) g/dL Urine Color Light Yellow Urine Appearance Cloudy (Clear) Urine pH 5.5 (5.0-8.0) Ur Specific [place] 1.008 (1.001-1.035) Urine Protein Trace H (Negative) Urine Glucose (UA) 2+ H (Negative) Urine Ketones Negative (Negative) Urine Blood Negative (Negative) Urine Nitrite Negative (Negative) Urine Bilirubin Negative (Negative) Urine Urobilinogen <2.0 (<2.0) mg/dL Ur Leukocyte Esterase Large H (Negative) Urine RBC 2 (0-5) /hpf Urine WBC 81 H (0-5) /hpf Urine Bacteria Many H (None) /hpf Urine Mucus Rare H (None) /hpf 05/08/21 Range/Units 18:56 WBC (3.8-10.6) k/uL RBC (4.30-5.90) m/uL Hgb (13.0-17.5) gm/dL Hct (39.0-53.0) % MCV (80.0-100.0) fL MCH (25.0-35.0) pg MCHC (31.0-37.0) g/dL RDW (11.5-15.5) % Plt Count (150-450) k/uL MPV Neutrophils % % Lymphocytes % % Monocytes % % Eosinophils % % Basophils % % Neutrophils # (1.3-7.7) k/uL Lymphocytes # (1.0-4.8) k/uL Monocytes # (0-1.0) k/uL Eosinophils # (0-0.7) k/uL Basophils # (0-0.2) k/uL Sodium (137-145) mmol/L Potassium (3.5-5.1) mmol/L Chloride (98-107) mmol/L Carbon Dioxide (22-30) mmol/L Anion Gap mmol/L BUN (9-20) mg/dL Creatinine (0.66-1.25) mg/dL Est GFR (CKD-EPI)AfAm (>60 ml/min/1.73 sqM) Est GFR (CKD-EPI)NonAf (>60 ml/min/1.73 sqM) Glucose (74-99) mg/dL Calcium (8.4-10.2) mg/dL Magnesium (1.6-2.3) mg/dL Total Bilirubin (0.2-1.3) mg/dL AST (17-59) U/L ALT (4-49) U/L Alkaline Phosphatase (38-126) U/L Creatine Kinase (55-170) U/L Troponin I 0.023 (0.000-0.034) ng/mL Total Protein (6.3-8.2) g/dL Albumin (3.5-5.0) g/dL Urine Color Urine Appearance (Clear) Urine pH (5.0-8.0) Ur Specific [place] (1.001-1.035) Urine Protein (Negative) Urine Glucose (UA) (Negative) Urine Ketones (Negative) Urine Blood (Negative) Urine Nitrite (Negative) Urine Bilirubin (Negative) Urine Urobilinogen (<2.0) mg/dL Ur Leukocyte Esterase (Negative) Urine RBC (0-5) /hpf Urine WBC (0-5) /hpf Urine Bacteria (None) /hpf Urine Mucus (None) /hpf - Radiology Data Radiology results: report reviewed (Imaging reviewed no acute findings.), image reviewed Disposition Clinical Impression: Urinary tract infection, Dehydration, Weakness, Renal insufficiency Disposition: [facility] Condition: Fair Referrals: Fred Duff DO [Primary Care Provider] - 1-2 days
[2021-05-08] MEDS ORDERED: LIDOCAINE URO-JET JELLY 2% 5 ML KIT URETHRAL ONE (18:58)
[2021-05-08 19:07] LABS: Basophils # (A) 0.1 k/uL (0-0.2); Basophils % (A) 1 %; Eosinophils # (A) 0.1 k/uL (0-0.7); Eosinophils % (A) 2 %; HCT 37.3 % (39.0-53.0); HGB 12.2 gm/dL (13.0-17.5); Lymphocytes % (A) 16 %; MCH 28.1 pg (25.0-35.0); MCHC 32.7 g/dL (31.0-37.0); MCV 85.8 fL (80.0-100.0); Mean Platelet Volume 7.4; Monocytes # (A) 0.6 k/uL (0-1.0); Monocytes % (A) 9 %; Neutrophils # (A) 4.4 k/uL (1.3-7.7); Neutrophils % (A) 70 %; Platelet Count 221 k/uL (150-450); RBC 4.35 m/uL (4.30-5.90); WBC 6.2 k/uL (3.8-10.6)
[2021-05-08 19:16] LABS: Albumin 3.4 g/dL (3.5-5.0); Magnesium 2.1 mg/dL (1.6-2.3); Potassium 4.5 mmol/L (3.5-5.1); Total Bilirubin 0.5 mg/dL (0.2-1.3); Total Protein 6.7 g/dL (6.3-8.2)
[2021-05-08 19:29] LABS: Appearance,Urine Cloudy (Clear); Bacteria,Urine Many /hpf; Bilirubin,Urine Negative (Negative); Blood,Urine Negative (Negative); Color,Urine Light Yellow; Glucose,Urine (UA) 2+ (Negative); Ketones,Urine Negative (Negative); Leukocyte Esterase,Urine Large (Negative); Mucus,Urine Rare /hpf; Nitrite,Urine Negative (Negative); PH, Urine 5.5 (5.0-8.0); Protein,Urine Trace (Negative); RBC,Urine 2 /hpf (0-5); Specific Gravity,Urine 1.008 (1.001-1.035); Urobilinogen,Urine <2.0 mg/dL (<2.0); WBC,Urine 81 /hpf (0-5)
--- NOTE | 2021-05-08 20:03 | XR ---
EXAMINATION TYPE: XR chest 2V DATE OF EXAM: 05/08/2021 COMPARISON: 06/13/2018 HISTORY: Weakness TECHNIQUE: FINDINGS: There is some mild linear interstitial density in the left mid and lower lung field. Right lung is clear. There are sternal wires. There is no heart failure. Heart size is normal. There is no pleural effusion. IMPRESSION: Mild subsegmental atelectasis or scarring in the left midlung without much change compare d to old exam. No heart failure.
[2021-05-08] MEDS ORDERED: cefTRIAXone IN SWFI 1,000 MG/10 ML SYRINGE IVP STA (20:32)
[2021-05-08] MEDS ORDERED: NALOXONE 0.4 MG/ML 1 ML VIAL IV PRN (20:35)
[2021-05-08 22:56] LABS: Glucose,Whole Blood 223 mg/dL (75-99)
[2021-05-08] MEDS: INSULIN DETEMIR (LEVEMIR) 100 UNIT/ML SYR SQ SCH (23:06)
[2021-05-09] MEDS: ACETAMINOPHEN TAB 325 MG TAB PO PRN ×3 (05:52→23:54)
[2021-05-09 07:05] LABS: Glucose,Whole Blood 166 mg/dL (75-99)
[2021-05-09] MEDS: HYDROcodone/APAP 5-325MG 1 EACH TAB PO PRN ×2 (08:41→16:30)
[2021-05-09] MEDS: INSULIN ASPART (NovoLOG) 100 UNIT/ML VIAL SQ SCH ×4 (08:42→20:47)
[2021-05-09] MEDS ORDERED: amLODIPine 10 MG TAB PO SCH (09:00)
[2021-05-09 10:46] LABS: Basophils % (A) 0 %; Eosinophils % (A) 0 %; HCT 34.9 % (39.0-53.0); HGB 11.3 gm/dL (13.0-17.5); Lymphocytes # (A) 1.2 k/uL (1.0-4.8); Lymphocytes % (A) 25 %; MCH 27.8 pg (25.0-35.0); MCHC 32.5 g/dL (31.0-37.0); MCV 85.7 fL (80.0-100.0); Mean Platelet Volume 7.4; Monocytes # (A) 0.4 k/uL (0-1.0); Monocytes % (A) 7 %; Neutrophils # (A) 3.2 k/uL (1.3-7.7); Neutrophils % (A) 65 %; Platelet Count 204 k/uL (150-450); RBC 4.08 m/uL (4.30-5.90); RDW 14.5 % (11.5-15.5)
[2021-05-09 10:59] LABS: African American GFR (CKD) 42 (>60 ml/min/1.73 sqM); Anion Gap 8 mmol/L; Blood Urea Nitrogen 44 mg/dL (9-20); C Reactive Protein 3.9 mg/dL (<1.0); Calcium 8.3 mg/dL (8.4-10.2); Carbon Dioxide 24 mmol/L (22-30); Chloride 104 mmol/L (98-107); Glucose 138 mg/dL (74-99); LDH 335 U/L (313-618); Non-African American GFR(CKD) 36 (>60 ml/min/1.73 sqM); Potassium 4.1 mmol/L (3.5-5.1); Sodium 136 mmol/L (137-145)
[2021-05-09] MEDS: CHOLECALCIFEROL 25 MCG (1000 IU) TABLET PO SCH (11:00)
[2021-05-09 11:24] LABS: Glucose,Whole Blood 116 mg/dL (75-99)
[2021-05-09] MEDS: CLOPIDOGREL 75 MG TAB PO SCH (11:44)
[2021-05-09] MEDS: ASCORBIC ACID 500 MG TAB PO SCH (11:44)
[2021-05-09] MEDS: ISOSORBIDE MONONITRATE ER 30 MG TAB.ER.24H PO SCH (11:44)
[2021-05-09] MEDS: FUROSEMIDE 40 MG TAB PO SCH (11:44)
[2021-05-09] MEDS: lisinopriL 10 MG TAB PO SCH (11:44)
[2021-05-09] MEDS: amLODIPine 10 MG TAB PO SCH (11:44)
[2021-05-09] MEDS: ENOXAPARIN 30 MG/0.3 ML SYRINGE SQ SCH (11:45)
--- NOTE | 2021-05-09 12:11 | P.HPIM ---
History of Present Illness H&P Date: 05/09/21 Chief Complaint: Weakness 85-year-old male with a history of multiple medical issues including peripheral neuropathy, CAD, CVA/TIA, diabetes mellitus, hypertension, who presented by EMS with complaints of lower extremity weakness which is worse than usual today. He was unable himself out of bed today. EMS was called he was no trauma reported. Patient is complaining of 10/10 bilateral foot pain he believes is secondary to his neuropathy. He did not take any medications since this morning No fevers chills nausea vomiting sweats no chest pain of note patient does self cath himself. Workup in ED reveals a positive UA; blood work reveals sodium of 135, potassium of 4.5, BUN 44/1.80, blood glucose of 204, MCV 66.2, hemoglobin 12.2 and platelet count of 221; chest x-ray is unremarkable; COVID-19 PCR is positive Patient is admitted for further treatment of UTI and renal insufficiency Review of Systems REVIEW OF SYSTEMS: CONSTITUTIONAL: No fever, no malaise, no fatigue. HEENT: No recent visual problems or hearing problems. Denied any sore throat. CARDIOVASCULAR: No chest pain, orthopnea, PND, no palpitations, no syncope. PULMONARY: No shortness of breath, no cough, no hemoptysis. GASTROINTESTINAL: No diarrhea, no nausea, no vomiting, no abdominal pain. NEUROLOGICAL: No headaches, no weakness, no numbness. HEMATOLOGICAL: Denies any bleeding or petechiae. GENITOURINARY: Denies any burning micturition, frequency, or urgency. MUSCULOSKELETAL/RHEUMATOLOGICAL: Denies any joint pain, swelling, or any muscle pain. ENDOCRINE: Denies any polyuria or polydipsia. The rest of the 14-point review of systems is negative. Past Medical History Past Medical History: Coronary Artery Disease (CAD), Chest Pain / Angina, CVA/TIA, Diabetes Mellitus, Hypertension, Myocardial Infarction ([place]), Renal Disease, Vascular Disorder Additional Past Medical History / Comment(s): URINARY RETENTION pt thinks possible from effects from stroke as well as L arm/leg weakness, REQUIRING SELF CATH, IDDM type II, bilateral NEUROPATHY hands and feet, PVD, [place]'S with last one being 04/09/16, CKD stage III, normocytic anemia, UTIs. Last Myocardial Infarction Date:: 2016 History of Any Multi-Drug Resistant Organisms: None Reported Past Surgical History: Coronary Bypass/CABG, Heart Catheterization, Heart Catheterization With Stent Additional Past Surgical History / Comment(s): 5 VESSLEL BYPASS 2006, stent RT leg , arthrectomy/stent March 2016, bilateral cataract removal with lens implants. Past Anesthesia/Blood Transfusion Reactions: No Reported Reaction Date of Last Stent Placement:: 2016 Past Psychological History: No Psychological Hx Reported Additional Psychological History / Comment(s): Pt resides with his spouse. His xdhvby-mr-pqf is their pipeline inspector and is with them daily. Pt normally can ambulate with a walker. He no longer drives. His pipeline inspector takes him to [employer] His pipeline inspector manages his medications. Smoking Status: Never smoker Past Alcohol Use History: None Reported Additional Past Alcohol Use History / Comment(s): Patient was a smoker one to 2 packs per day for 56 years and quit 10 years ago. Heavy etoh in the past - not current-quit 40 years ago. He denies any alcohol intake at this time. No marijuana or illicit drug use. 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 He lives at home with his . No pets in the home and no recent travel. He was in the [employer] stationed in [facility]. Past Drug Use History: None Reported - Past Family History Brother(s) Family Medical History: Myocardial Infarction ([place]) Mother Family Medical History: Diabetes Mellitus Additional Family Medical History / Comment(s): AT AGE 93 Father Family Medical History: Myocardial Infarction ([place]) Additional Family Medical History / Comment(s): AT AGE 83 FROM [place]. Medications and Allergies Home Medications Medication Instructions Recorded Confirmed Type Clopidogrel [Plavix] 75 mg PO DAILY #30 tab 11/20/15 05/09/21 Rx Isosorbide Mononitrate ER [Imdur] 30 mg PO DAILY #30 tab.er.24h 11/20/15 05/09/21 Rx Furosemide [Lasix] 40 mg PO DAILY 04/10/16 05/09/21 History amLODIPine [Norvasc] 10 mg PO DAILY #30 tab 04/17/16 05/09/21 Rx lisinopriL [Zestril] 10 mg PO DAILY #30 tab 04/17/16 05/09/21 Rx Atorvastatin [Lipitor] 40 mg PO HS 05/09/21 05/09/21 History Insulin Aspart Protam & Aspart 10 unit SQ DAILY 05/09/21 05/09/21 History [NovoLOG MIX 70-30 Flexpen] Insulin Aspart Protam & Aspart 12 unit SQ HS 05/09/21 05/09/21 History [NovoLOG MIX 70-30 Flexpen] Insulin Aspart Protam & Aspart See Protocol SQ HS 05/09/21 05/09/21 History [NovoLOG MIX 70-30 Flexpen] Levothyroxine Sodium [Synthroid] 50 mcg PO AC-BRKFST 05/09/21 05/09/21 History carvediloL [Coreg] 6.25 mg PO BID 05/09/21 05/09/21 History Allergies Allergy/AdvReac Type Severity Reaction Status Date / Time Iodinated Contrast Media AdvReac Rash/Hives Verified 05/09/21 09:43 Physical Exam Vitals: Vital Signs Temp Pulse Pulse Resp BP BP Pulse Ox 05/09/21 05:55 99.0 F 87 17 159/68 93 L 05/09/21 02:00 100.6 F H 88 18 172/75 92 L 05/08/21 22:20 96 17 05/08/21 21:40 98.5 F 96 17 169/69 91 L 05/08/21 20:53 97.6 F 79 18 145/74 92 L 05/08/21 17:55 98.3 F 72 18 125/46 98 Intake and Output 05/08/21 05/09/21 05/09/21 22:59 06:59 14:59 Intake Total 700 Balance 700 Intake: Intake, IV Titration 700 Amount Sodium Chloride 0.9% 1, 700 000 ml @ 100 mls/hr IV . Q10H STA Rx#:[id number] Other: Voiding Method Indwelling Catheter Weight 65.771 kg PHYSICAL EXAMINATION: GENERAL: The patient is alert and oriented x3, not in any acute distress. Well developed, well nourished. HEENT: Pupils are round and equally reacting to light. EOMI. No scleral icterus. No conjunctival pallor. Normocephalic, atraumatic. No pharyngeal erythema. No thyromegaly. CARDIOVASCULAR: S1 and S2 present. No murmurs, rubs, or gallops. PULMONARY: Chest is clear to auscultation, no wheezing or crackles. ABDOMEN: Soft, nontender, nondistended, normoactive bowel sounds. No palpable organomegaly. MUSCULOSKELETAL: No joint swelling or deformity. EXTREMITIES: No cyanosis, clubbing, or pedal edema. NEUROLOGICAL: Gross neurological examination did not reveal any focal deficits. SKIN: No rashes. Results CBC & Chem 7: 05/09/21 10:25 05/09/21 10:25 Labs: Abnormal Lab Results - Last 24 Hours (Table) 05/08/21 05/08/21 05/08/21 Range/Units 18:56 18:56 18:56 Hgb 12.2 L (13.0-17.5) gm/dL Hct 37.3 L (39.0-53.0) % Sodium 135 L (137-145) mmol/L BUN 44 H (9-20) mg/dL Creatinine 1.80 H (0.66-1.25) mg/dL Glucose 204 H (74-99) mg/dL POC Glucose (mg/dL) (75-99) mg/dL Creatine Kinase 37 L (55-170) U/L Albumin 3.4 L (3.5-5.0) g/dL Urine Protein Trace H (Negative) Urine Glucose (UA) 2+ H (Negative) Ur Leukocyte Esterase Large H (Negative) Urine WBC 81 H (0-5) /hpf Urine Bacteria Many H (None) /hpf Urine Mucus Rare H (None) /hpf Coronavirus (PCR) (Not Detectd) 05/08/21 05/08/21 05/09/21 Range/Units 20:41 22:47 07:03 Hgb (13.0-17.5) gm/dL Hct (39.0-53.0) % Sodium (137-145) mmol/L BUN (9-20) mg/dL Creatinine (0.66-1.25) mg/dL Glucose (74-99) mg/dL POC Glucose (mg/dL) 223 H 166 H (75-99) mg/dL Creatine Kinase (55-170) U/L Albumin (3.5-5.0) g/dL Urine Protein (Negative) Urine Glucose (UA) (Negative) Ur Leukocyte Esterase (Negative) Urine WBC (0-5) /hpf Urine Bacteria (None) /hpf Urine Mucus (None) /hpf Coronavirus (PCR) Detected A (Not Detectd) Microbiology - Last 24 Hours (Table) 05/08/21 18:56 Urine Culture - Preliminary Urine,Voided Thrombosis Risk Factor Assmnt - Choose All That Apply Other Risk Factors: Yes Each Risk Factor Represents 3 Points: Age 75 years or older Thrombosis Risk Factor Assessment Total Risk Factor Score: 3 Thrombosis Risk Factor Assessment Level: Moderate Risk Assessment and Plan Assessment: 1. COVID-19 infection - Patient doesn't exhibit any respiratory symptoms at this time; patient reports that he is agreeable to vitamin treatment for COVID-19 but would not be willing if needed to be initiated on Remdesivir; we will order inflammatory markers including calcitonin, CRP, LDH, d-dimer, ferritin; further recommendations once testing is available - Patient will be initiated on subcu Lovenox and COVID-19 vitamin cocktail - Pulmonary consult for any further recommendations 2. UTI; patient is placed on ceftriaxone 1 g IV daily; we will monitor CBC and pro-calcitonin; further recommendations once urine culture is available 3. Acute renal injury; IV fluid hydration with normal saline; monitor strict SARATH's, daily weights, renal function and electrolytes; avoid nephrotoxins and hypotension; we will hold lisinopril if renal function deteriorates 4. Weakness/debility; likely related to COVID-19 infection 5. Hyperglycemia/diabetes mellitus type 2; uncontrolled; we will continue with home regimen; monitor Accu-Cheks every before meals and at bedtime with insulin sliding scale 6. Hypertension; amlodipine 10 mg daily, lisinopril 10 mg daily and Imdur 30 mg daily; plan to hold lisinopril if renal function deteriorates 7. CAD/CHF; patient remains on Plavix, Imdur and Lasix 40 mg daily; we will hold Lasix if renal function deteriorates DVT prophylaxis; SCDs/subcu Lovenox CODE STATUS; DO NOT RESUSCITATE
[2021-05-09 16:26] LABS: Glucose,Whole Blood 196 mg/dL (75-99)
--- NOTE | 2021-05-09 17:01 | P.CNPUL ---
History of Present Illness Consult date: 05/09/21 Requesting physician: See Obrien Reason for consult: other Chief complaint: Urinary tract infection, dehydration, and weakness. History of present illness: Pulmonary consult dated 05/09/2021. 85-year-old male who sees Dr. Fred Duff is a primary. The patient presented to the emergency room, yesterday, complaining of weakness. The patient was noted to have a urinary tract infection. He is being treated with Rocephin for the UTI. He did test positive for coronavirus. He is un-vaccinated. He denies any symptoms related to coronavirus infection, such as shortness of breath, chest congestion, cough, and fever. The patient's primary issues related to leg pain, generalized weakness, and difficulty walking. The patient is a DO NOT RESUSCITATE patient. The patient is not on any supplemental oxygen. He is getting saline at 10 mL an hour. He is also getting IV Rocephin as mentioned above. He has a history of coronary disease, angina, CVA, diabetes, hypertension, myocardial infarction, urinary retention, neuropathy, stage III chronic kidney disease, and anemia. The patient has also had bypass grafting, and heart catheterization with stents. White count 5, hemoglobin 11.3, hematocrit 34.9, and platelet count 204,000. D-dimer is 0.71. Sodium 136, potassium 4.1, chlorides 104, CO2 24, anion gap 8, BUN 44, creatinine 1.70. C- reactive protein is 3.9. Calcium 8.3, and LDH is 335. Urinalysis was positive for trace protein, large positive leukocyte esterase, 81 WBCs, and many bacteria. Testing for coronavirus was positive. Chest x-ray was essentially normal save for some very mild atelectasis in the left midlung. This was not a new finding. Review of Systems REVIEW OF SYSTEMS: CONSTITUTIONAL: Weakness NEUROLOGIC: [ Negative.] HEENT: [ Negative.] CARDIAC: [Negative.] PULMONARY: [Negative.] GI: [Negative.] : Possible bladder infection. RHEUMATOLOGIC: Leg pain IMMUNOLOGIC: [ Negative.] ENDOCRINE: [Negative. ] DERMATOLOGIC: [Negative.] Past Medical History Past Medical History: Coronary Artery Disease (CAD), Chest Pain / Angina, CVA/TIA, Diabetes Mellitus, Hypertension, Myocardial Infarction ([place]), Renal Disease, Vascular Disorder Additional Past Medical History / Comment(s): URINARY RETENTION pt thinks possible from effects from stroke as well as L arm/leg weakness, REQUIRING SELF CATH, IDDM type II, bilateral NEUROPATHY hands and feet, PVD, [place]'S with last one being 04/09/16, CKD stage III, normocytic anemia, UTIs. Last Myocardial Infarction Date:: 2016 History of Any Multi-Drug Resistant Organisms: None Reported Past Surgical History: Coronary Bypass/CABG, Heart Catheterization, Heart Catheterization With Stent Additional Past Surgical History / Comment(s): 5 VESSLEL BYPASS 2006, stent RT leg , arthrectomy/stent March 2016, bilateral cataract removal with lens implants. Past Anesthesia/Blood Transfusion Reactions: No Reported Reaction Date of Last Stent Placement:: 2016 Past Psychological History: No Psychological Hx Reported Additional Psychological History / Comment(s): Pt resides with his spouse. His urcyxv-ad-nxe is their fresh foods technician and is with them daily. Pt normally can ambulate with a walker. He no longer drives. His fresh foods technician takes him to app. His fresh foods technician manages his medications. Smoking Status: Never smoker Past Alcohol Use History: None Reported Additional Past Alcohol Use History / Comment(s): Patient was a smoker one to 2 packs per day for 56 years and quit 10 years ago. Heavy etoh in the past - not current-quit 40 years ago. He denies any alcohol intake at this time. No marijuana or illicit drug use. 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 He lives at home with his . No pets in the home and no recent travel. He was in the [employer] stationed in [facility]. Past Drug Use History: None Reported - Past Family History Brother(s) Family Medical History: Myocardial Infarction ([place]) Mother Family Medical History: Diabetes Mellitus Additional Family Medical History / Comment(s): AT AGE 93 Father Family Medical History: Myocardial Infarction ([place]) Additional Family Medical History / Comment(s): AT AGE 83 FROM [place]. Medications and Allergies Home Medications Medication Instructions Recorded Confirmed Type Clopidogrel [Plavix] 75 mg PO DAILY #30 tab 11/20/15 05/09/21 Rx Isosorbide Mononitrate ER [Imdur] 30 mg PO DAILY #30 tab.er.24h 11/20/15 2 Rx Furosemide [Lasix] 40 mg PO DAILY 04/10/16 05/09/21 History amLODIPine [Norvasc] 10 mg PO DAILY #30 tab 04/17/16 05/09/21 Rx lisinopriL [Zestril] 10 mg PO DAILY #30 tab 04/17/16 05/09/21 Rx Atorvastatin [Lipitor] 40 mg PO HS 05/09/21 05/09/21 History Insulin Aspart Protam & Aspart 10 unit SQ DAILY 05/09/21 05/09/21 History [NovoLOG MIX 70-30 Flexpen] Insulin Aspart Protam & Aspart 12 unit SQ HS 05/09/21 05/09/21 History [NovoLOG MIX 70-30 Flexpen] Insulin Aspart Protam & Aspart See Protocol SQ HS 05/09/21 05/09/21 History [NovoLOG MIX 70-30 Flexpen] Levothyroxine Sodium [Synthroid] 50 mcg PO AC-BRKFST 05/09/21 05/09/21 History carvediloL [Coreg] 6.25 mg PO BID 05/09/21 05/09/21 History Allergies Allergy/AdvReac Type Severity Reaction Status Date / Time Iodinated Contrast Media AdvReac Rash/Hives Verified 05/09/21 09:43 Physical Exam Osteopathic Statement: *. No significant issues noted on an osteopathic structural exam other than those noted in the History and Physical/Consult. Vitals: Vital Signs Temp Pulse Pulse Resp BP BP Pulse Ox 05/09/21 14:20 98.5 F 69 17 146/69 90 L 05/09/21 08:48 98.8 F 72 17 128/66 92 L 05/09/21 05:55 99.0 F 87 17 159/68 93 L 05/09/21 02:00 100.6 F H 88 18 172/75 92 L 05/08/21 22:20 96 17 05/08/21 21:40 98.5 F 96 17 169/69 91 L 05/08/21 20:53 97.6 F 79 18 145/74 92 L 05/08/21 17:55 98.3 F 72 18 125/46 98 Intake and Output 05/09/21 05/09/21 05/09/21 06:59 14:59 22:59 Intake Total 700 Balance 700 Intake: Intake, IV Titration 700 Amount Sodium Chloride 0.9% 1, 700 000 ml @ 100 mls/hr IV . Q10H STA Rx#:[id number] No acute distress, oriented 3. Currently not on any supplemental oxygen. HEENT examination is grossly unremarkable. Neck supple. Full range of motion. No adenopathy thyromegaly or neck vein distention. Cardiovascular examination reveals regular rhythm rate. S1-S2 normal. No S3 or S4. No discernible murmur noted. Heart rate 69 bpm. Lungs reveal clear breath sounds. Breath sounds are equal bilaterally. No adventitious lung sounds including wheezes rhonchi or crackles. Room air saturation is 93%. Abdomen soft bowel sounds are heard. No masses or tenderness. Extremities are intact. No cyanosis clubbing or edema. Skin is without rash or lesion. Neurologic examination is brief but nonfocal. Results - Laboratory Findings CBC and BMP: 05/09/21 10:25 05/09/21 10:25 PT/INR, D-dimer D-Dimer 0.71 mg/L FEU (<0.60) H 05/09/21 10:25 Abnormal lab findings: Abnormal Labs 05/08/21 05/08/21 05/08/21 18:56 18:56 18:56 RBC Hgb 12.2 L Hct 37.3 L D-Dimer Sodium 135 L BUN 44 H Creatinine 1.80 H Glucose 204 H POC Glucose (mg/dL) Calcium Creatine Kinase 37 L C-Reactive Protein Albumin 3.4 L Urine Protein Trace H Urine Glucose (UA) 2+ H Ur Leukocyte Esterase Large H Urine WBC 81 H Urine Bacteria Many H Urine Mucus Rare H Coronavirus (PCR) 05/08/21 05/08/21 05/09/21 20:41 22:47 07:03 RBC Hgb Hct D-Dimer Sodium BUN Creatinine Glucose POC Glucose (mg/dL) 223 H 166 H Calcium Creatine Kinase C-Reactive Protein Albumin Urine Protein Urine Glucose (UA) Ur Leukocyte Esterase Urine WBC Urine Bacteria Urine Mucus Coronavirus (PCR) Detected A 05/09/21 05/09/21 05/09/21 10:25 10:25 10:25 RBC 4.08 L Hgb 11.3 L Hct 34.9 L D-Dimer 0.71 H Sodium 136 L BUN 44 H Creatinine 1.70 H Glucose 138 H POC Glucose (mg/dL) Calcium 8.3 L Creatine Kinase C-Reactive Protein 3.9 H Albumin Urine Protein Urine Glucose (UA) Ur Leukocyte Esterase Urine WBC Urine Bacteria Urine Mucus Coronavirus (PCR) 05/09/21 05/09/21 11:22 16:23 RBC Hgb Hct D-Dimer Sodium BUN Creatinine Glucose POC Glucose (mg/dL) 116 H 196 H Calcium Creatine Kinase C-Reactive Protein Albumin Urine Protein Urine Glucose (UA) Ur Leukocyte Esterase Urine WBC Urine Bacteria Urine Mucus Coronavirus (PCR) - Diagnostic Findings Chest x-ray: image reviewed Assessment and Plan Assessment: Urinary tract infection, currently on Rocephin. Patient tested positive for coronavirus, likely incidental. History of CAD, with previous bypass grafting, as well as catheterization with stent placement. Prior history of myocardial infarction. History of diabetes with diabetic neuropathy. History of CVA. History of hypertension. History of stage III chronic kidney disease. History of urinary retention. History of anemia. Plan: Plan dated 05/09/2021. The patient is currently on vitamin C, vitamin D3, and zinc. The patient is getting Lovenox, for DVT prophylaxis. The patient does not need Decadron. The patient is getting Rocephin for suspected urinary tract infection. Microbiology is currently pending or negative. We will continue to follow make recommendations were appropriate. Chest x-ray stable. No additional recommendations at this time. Prognosis is guarded. Time with Patient: Less than 30
[2021-05-09 20:47] LABS: Glucose,Whole Blood 92 mg/dL (75-99)
[2021-05-09] MEDS: INSULIN DETEMIR (LEVEMIR) 100 UNIT/ML SYR SQ SCH (20:47)
[2021-05-10 07:24] LABS: Glucose,Whole Blood 56 mg/dL (75-99)
[2021-05-10] MEDS: INSULIN ASPART (NovoLOG) 100 UNIT/ML VIAL SQ SCH ×4 (07:55→21:54)
[2021-05-10] MEDS: ASCORBIC ACID 500 MG TAB PO SCH (08:04)
[2021-05-10] MEDS: CHOLECALCIFEROL 25 MCG (1000 IU) TABLET PO SCH (08:04)
[2021-05-10] MEDS: ACETAMINOPHEN TAB 325 MG TAB PO PRN (08:05)
[2021-05-10] MEDS: FUROSEMIDE 40 MG TAB PO SCH (08:05)
[2021-05-10] MEDS: ISOSORBIDE MONONITRATE ER 30 MG TAB.ER.24H PO SCH (08:05)
[2021-05-10] MEDS: ENOXAPARIN 30 MG/0.3 ML SYRINGE SQ SCH (08:05)
[2021-05-10] MEDS: CLOPIDOGREL 75 MG TAB PO SCH (08:05)
[2021-05-10] MEDS: lisinopriL 10 MG TAB PO SCH (08:05)
[2021-05-10] MEDS: amLODIPine 10 MG TAB PO SCH (08:05)
[2021-05-10 08:29] LABS: Glucose,Whole Blood 97 mg/dL (75-99)
[2021-05-10 10:26] LABS: African American GFR (CKD) 45.2 (60.0-200.0); Anion Gap 14.9 mmol/L (10.00-18.00); BUN/Creat Ratio 23.31 Ratio (12.00-20.00); Blood Urea Nitrogen 37.3 mg/dL (9.0-27.0); Calcium 8.7 mg/dL (8.7-10.3); Carbon Dioxide 21.1 mmol/L (20.0-27.5); Potassium 4.1 mmol/L (3.5-5.5)
[2021-05-10 11:42] LABS: Glucose,Whole Blood 134 mg/dL (75-99)
--- NOTE | 2021-05-10 12:08 | P.PN ---
Subjective Progress Note Date: 05/10/21 Principal diagnosis: Weakness, COVID-19 infection 85-year-old male who sees Dr. Fred Duff is a primary. The patient presented to the emergency room, yesterday, complaining of weakness. The patient was noted to have a urinary tract infection. He is being treated with Rocephin for the UTI. He did test positive for coronavirus. He is un-vaccinated. He denies any symptoms related to coronavirus infection, such as shortness of breath, chest congestion, cough, and fever. The patient's primary issues related to leg pain, generalized weakness, and difficulty walking. The patient is a DO NOT RESUSCITATE patient. The patient is not on any supplemental oxygen. He is gett ing saline at 10 mL an hour. He is also getting IV Rocephin as mentioned above. He has a history of coronary disease, angina, CVA, diabetes, hypertension, myocardial infarction, urinary retention, neuropathy, stage III chronic kidney disease, and anemia. The patient has also had bypass grafting, and heart catheterization with stents. White count 5, hemoglobin 11.3, hematocrit 34.9, and platelet count 204,000. D-dimer is 0.71. Sodium 136, potassium 4.1, chlorides 104, CO2 24, anion gap 8, BUN 44, creatinine 1.70. C-reactive protein is 3.9. Calcium 8.3, and LDH is 335. Urinalysis was positive for trace protein, large positive leukocyte esterase, 81 WBCs, and many bacteria. Testing for coronavirus was positive. Chest x-ray was essentially normal save for some very mild atelectasis in the left midlung. This was not a new finding. On 05/10/2021 patient seen in follow-up on medical surgical floor, on 3 L of oxygen patient's pulse ox is 97%, lung sounds are diminished, no rhonchi or crackles were appreciated on today's exam, the nursing staff noted that patient doesn't desaturate when the FiO2 was turned down to 2 L. Patient reports a mild cough, but no respiratory distress. No couplets or chest discomfort, he is being treated for an acute urinary tract infection, he did have episodes of low- grade fever with a T-max of 100.5F overnight. Vital signs have been stable ot [facility]. His chest x-ray showed mild subsegmental atelectasis or scarring in the left midlung. Her calcitonin level was negative at 0.13. His LDH was within normal limits at 335, and CRP was 3.9. LFTs were within normal limits, today's labs have been reviewed, electric lites are within normal limits, his creatinine is improving and is down to 1.6, BUN is 37. Patient is currently on Rocephin for antibiotic coverage, currently on home dose Lasix 20 mg daily. Reports no nausea or vomiting. Appears weak. Patient denies being vaccinated against COVID 19 Objective - Vital Signs Vital signs: Vital Signs Temp 100.2 F H 05/10/21 10:00 Pulse 74 05/10/21 10:00 Resp 18 05/10/21 10:00 BP 128/65 05/10/21 10:00 Pulse Ox 97 05/10/21 10:00 Intake & Output 05/09/21 05/10/21 05/10/21 18:59 06:59 18:59 Intake Total 600 600 Output Total 1100 2100 Balance -1100 600 -1500 Intake: Oral 600 600 Output: Urine 1100 2100 Other: Voiding Method Indwelling Catheter # Voids 3 - Exam GENERAL EXAM: Alert, 85-year-old white male, appears weak, requires assistance to sit up in bed satting 97% on 3 L comfortable in no apparent distress. HEAD: Normocephalic/atraumatic. EYES: Normal reaction of pupils, equal size. Conjunctiva pink, sclera white. NOSE: Clear with pink turbinates. THROAT: No erythema or exudates. NECK: No masses, no JVD, no thyroid enlargement, no adenopathy. CHEST: No chest wall deformity. Symmetrical expansion. LUNGS: Equal air entry with bibasilar crackles CVS: Regular rate and rhythm, normal S1 and S2, no gallops, no murmurs, no rubs ABDOMEN: Soft, nontender. No hepatosplenomegaly, normal bowel sounds, no guarding or rigidity. EXTREMITIES: No clubbing, no edema, no cyanosis, 2+ pulses and upper and lower extremities. MUSCULOSKELETAL: Muscle strength and tone normal. SPINE: No scoliosis or deformity SKIN: No rashes CENTRAL NERVOUS SYSTEM: Alert and oriented -3. No focal deficits, tone is normal in all 4 extremities. PSYCHIATRIC: Alert and oriented -3. Appropriate affect. Intact judgment and insight. - Labs CBC & Chem 7: 05/09/21 10:25 05/10/21 05:56 Labs: Abnormal Lab Results - Last 24 Hours (Table) 05/09/21 05/09/21 05/10/21 Range/Units 10:25 16:23 05:56 BUN 37.3 H (9.0-27.0) mg/dL Creatinine 1.6 H (0.6-1.5) mg/dL Est GFR (CKD-EPI)AfAm 45.2 L (60.0-200.0) Est GFR (CKD-EPI)NonAf 39.0 L (60.0-200.0) BUN/Creatinine Ratio 23.31 H (12.00-20.00) Ratio Glucose 49 L* (70-110) mg/dL POC Glucose (mg/dL) 196 H (75-99) mg/dL Procalcitonin 0.13 H (0.02-0.09) ng/mL 05/10/21 05/10/21 Range/Units 07:23 11:40 BUN (9.0-27.0) mg/dL Creatinine (0.6-1.5) mg/dL Est GFR (CKD-EPI)AfAm (60.0-200.0) Est GFR (CKD-EPI)NonAf (60.0-200.0) BUN/Creatinine Ratio (12.00-20.00) Ratio Glucose (70-110) mg/dL POC Glucose (mg/dL) 56 L 134 H (75-99) mg/dL Procalcitonin (0.02-0.09) ng/mL Microbiology - Last 24 Hours (Table) 05/08/21 18:56 Urine Culture - Preliminary Urine,Voided Gram Neg Bacilli Assessment and Plan Plan: Assessment: #1. Acute COVID-19 infection, without clear evidence of pneumonia on the chest x-ray, time of symptom onset is unclear, patient is not a candidate for Remdesivir. Patient is not vaccinated against COVID-19. Patient presented to the emergency department primarily with symptoms of weakness and was discovered to have a urinary tract infection. Does report a mild cough and fever, but no shortness of breath. #2. Acute urinary tract infection currently on Rocephin, urine cultures positiv e for gram-negative bacilli #3. History of CAD with previous bypass grafting, and previous stent placement #4. Prior history of myocardial infarction #5. History of diabetes with diabetic neuropathy #6. History of CVA #7. History of hypertension #8. History of stage III chronic kidney disease #9. History of urinary retention Plan: Vital signs are stable Patient is currently on 2 L of oxygen Reports mild cough, and continues to be febrile Continue antibiotics for acute urinary tract infection We'll obtain a follow-up chest x-ray tomorrow, and follow up inflammatory markers and d-dimer Continue multivitamins, continue prophylactic anticoagulation We'll continue to follow his clinical course and make further recommendations I performed a history & physical examination of the patient and discussed their management with my nurse practitioner, Denisa Kiser. I reviewed the nurse practitioner's note and agree with the documented findings and plan of care. Lung sounds are positive for dim breath sounds throughout the lung bernal. The findings and the impression was discussed with the patient. I attest to the documentation by the nurse practitioner. Time with Patient: Less than 30
--- NOTE | 2021-05-10 15:33 | P.PN ---
Subjective Progress Note Date: 05/10/21 85-year-old male with a history of multiple medical issues including peripheral neuropathy, CAD, CVA/TIA, diabetes mellitus, hypertension, who presented by EMS with complaints of lower extremity weakness which is worse than usual today. He was unable himself out of bed today. EMS was called he was no trauma reported. Patient is complaining of 10/10 bilateral foot pain he believes is secondary to his neuropathy. He did not take any medications since this morning No fevers chills nausea vomiting sweats no chest pain of note patient does self cath himself. Workup in ED reveals a positive UA; blood work reveals sodium of 135, potassium of 4.5, BUN 44/1.80, blood glucose of 204, MCV 66.2, hemoglobin 12.2 and platelet count of 221; chest x-ray is unremarkable; COVID-19 PCR is positive Patient is admitted for further treatment of UTI and renal insufficiency 05/10/2021 Patient is seen in follow-up this morning continues to be closely monitored by pulmonary for COVID-19. Patient continues on 2-3 L via nasal cannula and continues with weakness. Will evaluate for home oxygen and also have PT/OT evaluate the patient for possible ECF. Patient will continue on IV antibiotics in the form of ceftriaxone for urinary tract infection with preliminary culture showing gram-negative bacilli and will await finalization. Patient to continue with indwelling Alves catheter as he normally performs straight catheterizations in the outpatient setting. Patient denies chest pain or worsening shortness of breath. Patient continues with intermittent low-grade temps of 100.2 max and will continue to monitor closely. Venous Doppler along with chest x-ray and repeat labs ordered for the a.m. We'll also order sputum culture which is currently pending. Review of systems: Constitutional: reports of fatigue, no reports of fever, or chills Cardiovascular: No reports of chest pain or palpitations Respiratory: No reports of worsening shortness of breath and cough, with no worsening GI: No reports of nausea, vomiting, or diarrhea : No reports of dysuria or retention Neurovascular: reports of generalized weakness All medications have been reviewed Active Medications Acetaminophen (Acetaminophen Tab 325 Mg Tab) 650 mg PO Q6HR PRN PRN Reason: Mild Pain or Fever > 100.5 Last Admin: 05/10/21 08:05 Dose: 650 mg Documented by: Hydrocodone Bitart/Acetaminophen (Hydrocodone/Apap 5-325mg 1 Each Tab) 1 each PO Q6HR PRN PRN Reason: Pain Last Admin: 05/09/21 16:30 Dose: 1 each Documented by: Amlodipine Besylate (Amlodipine 10 Mg Tab) 10 mg PO DAILY [facility] Last Admin: 05/10/21 08:05 Dose: 10 mg Documented by: Ascorbic Acid (Ascorbic Acid 500 Mg Tab) 500 mg PO DAILY [facility] Last Admin: 05/10/21 08:04 Dose: 500 mg Documented by: Cholecalciferol (Cholecalciferol 25 Mcg (1000 Iu) Tablet) 50 mcg PO DAILY [facility] Last Admin: 05/10/21 08:04 Dose: 50 mcg Documented by: Clopidogrel Bisulfate (Clopidogrel 75 Mg Tab) 75 mg PO DAILY [facility] Last Admin: 05/10/21 08:05 Dose: 75 mg Documented by: Enoxaparin Sodium (Enoxaparin 30 Mg/0.3 Ml Syringe) 30 mg SQ DAILY [facility] Last Admin: 05/10/21 08:05 Dose: 30 mg Documented by: Furosemide (Furosemide 40 Mg Tab) 40 mg PO DAILY [facility] Last Admin: 05/10/21 08:05 Dose: 40 mg Documented by: Ceftriaxone Sodium 1 gm/ (Sodium Chloride) 50 mls @ 100 mls/hr IVPB Q24HR [facility] Last Admin: 05/10/21 08:05 Dose: 100 mls/hr Documented by: Insulin Aspart (Insulin Aspart (Novolog) 100 Unit/Ml Vial) 0 unit SQ ACHS [facility]; Protocol Last Admin: 05/10/21 12:16 Dose: Not Given Documented by: Insulin Detemir (Insulin Detemir (Levemir) 100 Unit/Ml Syr) 20 unit SQ HS [facility] Last Admin: 05/09/21 20:47 Dose: 20 unit Documented by: Isosorbide Mononitrate (Isosorbide Mononitrate Er 30 Mg Tab.Er.24h) 30 mg PO DAILY [facility] Last Admin: 05/10/21 08:05 Dose: 30 mg Documented by: Lisinopril (Lisinopril 10 Mg Tab) 10 mg PO DAILY [facility] Last Admin: 05/10/21 08:05 Dose: 10 mg Documented by: Naloxone HCl (Naloxone 0.4 Mg/Ml 1 Ml Vial) 0.2 mg IV Q2M PRN PRN Reason: Opioid Reversal PHYSICAL EXAMINATION: GENERAL: The patient is alert and oriented, well developed, well nourished. Thin built HEENT: Pupils are round and equally reacting to light. EOMI. does have scleral icterus. No conjunctival pallor. Normocephalic, atraumatic. No pharyngeal erythema. No thyromegaly. CARDIOVASCULAR: S1 and S2 muffled PULMONARY: diminished breath sounds bilaterally with Few scattered rhonchi noted. ABDOMEN: soft. non-Tender on palpation. Non-distended, normoactive bowel sounds. No palpable organomegaly. MUSCULOSKELETAL: No joint swelling or deformity. EXTREMITIES: No cyanosis, clubbing, or pedal edema. NEUROLOGICAL: Gross neurological examination did not reveal any focal deficits. Diffusely weak SKIN: No rashes. Assessment: COVID-19 infection Acute urinary tract infection, present on admission Acute renal injury with chronic kidney disease stage III Weakness debility possibly related to COVID-19 infection History of urinary retention and straight caths in the outpatient setting Diabetes mellitus type 2 uncontrolled with hyperglycemia Hypertension Coronary artery disease history dvt prophylaxis GI prophylaxis No code Plan: Recommend to continue with current medications and symptomatic treatment. Patient continues with 3 L via nasal cannula are following. Patient was COVID- 19 positive and continues on the cutaneous Lovenox and will continue. Patient's plan was to return home although is extremely weak and will have physical therapy evaluate the patient for possible ECF. Continue with indwelling Alves catheter for now as he normally straight cath throughout the day. Recommend continue Accu-Cheks before meals and at bedtime closely and encourage oral intake. Patient is weak and will have physical therapy evaluate the patient for possible ECF versus home care. Repeat labs and chest x-ray ordered for a.m. Due to multiple complex medical issues, prognosis is guarded. The impression and plan of care has been dictated by Hanh Dyson, nurse practitioner as directed. MD Luann I have performed a history and examination and MDM of this patient, discussed the same with the dictator, and agree with the dictator's assessment and plan as written ,documented as a scribe. Based on total visit time, I have performed more than 50% of the visit. Any additional findings or plans will be noted. Objective - Vital Signs Vital signs: Vital Signs Temp 100.2 F H 05/10/21 10:00 Pulse 74 05/10/21 10:00 Resp 18 05/10/21 10:00 BP 128/65 05/10/21 10:00 Pulse Ox 97 05/10/21 10:00 Intake & Output 05/09/21 05/10/21 05/10/21 18:59 06:59 18:59 Intake Total 600 1200 Output Total 1100 2100 Balance -1100 600 -900 Intake: Oral 600 1200 Output: Urine 1100 2100 Other: Voiding Method Indwelling Catheter # Voids 3 - Labs CBC & Chem 7: 05/09/21 10:25 05/10/21 05:56 Labs: Abnormal Lab Results - Last 24 Hours (Table) 05/09/21 05/09/21 05/10/21 Range/Units 10:25 16:23 05:56 BUN 37.3 H (9.0-27.0) mg/dL Creatinine 1.6 H (0.6-1.5) mg/dL Est GFR (CKD-EPI)AfAm 45.2 L (60.0-200.0) Est GFR (CKD-EPI)NonAf 39.0 L (60.0-200.0) BUN/Creatinine Ratio 23.31 H (12.00-20.00) Ratio Glucose 49 L* (70-110) mg/dL POC Glucose (mg/dL) 196 H (75-99) mg/dL Procalcitonin 0.13 H (0.02-0.09) ng/mL 05/10/21 05/10/21 Range/Units 07:23 11:40 BUN (9.0-27.0) mg/dL Creatinine (0.6-1.5) mg/dL Est GFR (CKD-EPI)AfAm (60.0-200.0) Est GFR (CKD-EPI)NonAf (60.0-200.0) BUN/Creatinine Ratio (12.00-20.00) Ratio Glucose (70-110) mg/dL POC Glucose (mg/dL) 56 L 134 H (75-99) mg/dL Procalcitonin (0.02-0.09) ng/mL Microbiology - Last 24 Hours (Table) 05/08/21 18:56 Urine Culture - Preliminary Urine,Voided Gram Neg Bacilli
[2021-05-10] MEDS: HYDROcodone/APAP 5-325MG 1 EACH TAB PO PRN (16:47)
[2021-05-10 20:14] LABS: Glucose,Whole Blood 264 mg/dL (75-99)
[2021-05-10 21:20] LABS: Glucose,Whole Blood 204 mg/dL (75-99)
[2021-05-10] MEDS: INSULIN DETEMIR (LEVEMIR) 100 UNIT/ML SYR SQ SCH (21:54)
[2021-05-11 07:17] LABS: Glucose,Whole Blood 52 mg/dL (75-99)
[2021-05-11 07:57] LABS: Glucose,Whole Blood 112 mg/dL (75-99)
--- NOTE | 2021-05-11 08:39 | XR ---
EXAMINATION TYPE: XR chest 1V portable DATE OF EXAM: 05/11/2021 COMPARISON: X-ray dated 05/08/2021 HISTORY: Covid 19 TECHNIQUE: Single frontal view of the chest is obtained. FINDINGS: More apparent heterogeneous opacity in the left mid to lower lung zone. Grossly unremarkable remainde r of the lungs. No sizable pleural effusion or definite pneumothorax. Unchanged cardiomediastinal silhouette, aortic atherosclerotic calcifications and sternotomy sutures. No gross aggressive bone lesion. IMPRESSION: More apparent heterogeneous opacity in the left mid to lower lung zone as described above, recommend follow-up to complete resolution.
--- NOTE | 2021-05-11 08:42 | US ---
EXAMINATION TYPE: US venous doppler duplex LE DATE OF EXAM: 05/11/2021 7:32 AM COMPARISON: LLE US CLINICAL HISTORY: elevated d-dimer. Elevated d dimer. SIDE PERFORMED: Bilateral TECHNIQUE: The lower extremity deep venous system is examined utilizing real time linear array sonog janie with graded compression, doppler sonography and color-flow sonography. VESSELS IMAGED BILATERALLY: Common Femoral Vein Deep Femoral Vein Greater Saphenous Vein * Femoral Vein Popliteal Vein Small Saphenous Vein * Proximal Calf Veins (* superficial vessels) Right Leg: No evidence of DVT in veins imaged at this time. Left Leg: No evidence of DVT in veins imaged at this time. IMPRESSION: No evidence of DVT of the lower extremities down to the upper calf bilaterally.
[2021-05-11 09:15] LABS: Basophils # (A) 0.01 X 10*3/uL (0.00-0.10); Basophils % (A) 0.2 %; Eosinophils # (A) 0.03 X 10*3/uL (0.04-0.35); Eosinophils % (A) 0.6 %; HCT 38.8 % (39.6-50.0); HGB 12.2 g/dL (13.0-17.0); Immature Grans, Automated 0.6 %; Lymphocytes # (A) 1.63 X 10*3/uL (0.90-5.00); Lymphocytes % (A) 35.2 %; MCH 26.5 pg (27.0-32.0); MCHC 31.4 g/dL (32.0-37.0); MCV 84.3 fL (80.0-97.0); Mean Platelet Volume 9.6 fL (9.5-12.2); Monocytes # (A) 0.43 X 10*3/uL (0.20-1.00); Monocytes % (A) 9.3 %; NRBC Per 100 WBC 0 /100 WBCS (0.0-0.0); Neutrophils % (A) 54.1 %; Platelet Count 167 X 10*3/uL (140-440); RDW 14.4 % (11.5-14.5); WBC 4.63 X 10*3/uL (4.50-10.00)
[2021-05-11 09:17] LABS: Anion Gap 13.5 mmol/L (10.00-18.00); BUN/Creat Ratio 21.76 Ratio (12.00-20.00); C Reactive Protein 5.2 mg/dL (0.00-0.80); Calcium 8.6 mg/dL (8.7-10.3); Carbon Dioxide 25.5 mmol/L (20.0-27.5); Non-African American GFR(CKD) 36.2 (60.0-200.0); Potassium 4.5 mmol/L (3.5-5.5)
[2021-05-11 10:10] VITALS: BP 154/64; PULSE 79; RESP 16; TEMP 99.5
[2021-05-11] MEDS: INSULIN ASPART (NovoLOG) 100 UNIT/ML VIAL SQ SCH ×2 (10:16→12:33)
[2021-05-11] MEDS: CHOLECALCIFEROL 25 MCG (1000 IU) TABLET PO SCH (10:19)
[2021-05-11] MEDS: ENOXAPARIN 30 MG/0.3 ML SYRINGE SQ SCH (10:19)
[2021-05-11] MEDS: ASCORBIC ACID 500 MG TAB PO SCH (10:19)
[2021-05-11] MEDS: amLODIPine 10 MG TAB PO SCH (10:20)
[2021-05-11] MEDS: FUROSEMIDE 40 MG TAB PO SCH (10:20)
[2021-05-11] MEDS: lisinopriL 10 MG TAB PO SCH (10:20)
[2021-05-11] MEDS: CLOPIDOGREL 75 MG TAB PO SCH (10:20)
[2021-05-11] MEDS: ISOSORBIDE MONONITRATE ER 30 MG TAB.ER.24H PO SCH (10:21)
--- NOTE | 2021-05-11 10:46 | CDI ---
Documentation Clarification Form Date: 05/11/2021 10:33:39 AM From: Cathi Centeno CCS, CCDS Admit Date: 05/10/2021 09:04:00 AM Patient Name: Fred Patton Visit Number: [id number] Discharge Date: ATTENTION: The Clinical Documentation Specialists (CDI) and [facility] Coding Staff appreciate your assistance in clarifying documentation. Please respond to the clarification below the line at the bottom and electronically sign. The CDI & [facility] Coding staff will review the response and follow-up if needed. Please note: Queries are made part of the Legal Health Record. If you have any questions, please contact the author of this message via ITS. Dr. Janice Oakley: CHF is documented in the 05/09 History & Physical without further specificity. Additional information regarding the Type & Acuity of CHF is requested. 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 Clinical Indicators: Presented to the ED on 05/08 via EMS with weakness & difficulty walking. Admit with UTI and Dehydration. 05/08 VS: T 98.3, P 72, R 18, BP 125/46, PO 98 RA - 92 RA, BMI: 23.4 05/08 LAB: Hgb 12.2, Hct 37.3; Na 135, BUN 44, Creatinine 1.80, Glucose 204, Creatine Kinase 37, albumin 3.4. BNP: not done. 05/08 CXR: Mild subsegmental atelectasis or scarring in the left mid lung without much change compared to old exam. No heart failure. No ECHO since 07/18/15: Systolic function is low normal EF 500-55%, Mild mitral & tricuspid regurgitation, no evidence of pulmonary hypertension. Treatment 05/08: Blood glucose monitoring, Fall precautions, Insulin sliding scale, Neuro Assessment, urinary straight catheter, O2 2Lnc, IV Dilaudid 1 mg x1, IV Na Cl 130 mls/hr q7H, IV Rocephin 1,000 mg x1, IV Na Cl 100 mls/hr q10H, po Plavix, Lasix, Imdur, Zestril Daily. Home meds: Insulin sq, Zestril, Coreg, Synthroid, Imdur, Lasix 40 mg Daily, Plavix, Lipitor, Norvasc In your professional opinion, can you please clarify the Acuity and Type of CHF if known? [ ] Acute Systolic Heart Failure [ ] Chronic Systolic Heart Failure [ ] Acute on Chronic Systolic Heart Failure [ ] Other, please specify [ ] Unable to determine (Template Last Revised: April 2020) Unable to determine MTDD
[2021-05-11 11:45] LABS: Glucose,Whole Blood 96 mg/dL (75-99)
--- NOTE | 2021-05-11 11:58 | P.PN ---
Subjective Progress Note Date: 05/11/21 85-year-old male who sees Dr. Fred Duff is a primary. The patient presented to the emergency room, yesterday, complaining of weakness. The patient was noted to have a urinary tract infection. He is being treated with Rocephin for the UTI. He did test positive for coronavirus. He is un-vaccinated. He denies any symptoms related to coronavirus infection, such as shortness of breath, chest congestion, cough, and fever. The patient's primary issues related to leg pain, generalized weakness, and difficulty walking. The patient is a DO NOT RESUSCITATE patient. The patient is not on any supplemental oxygen. He is getting saline at 10 mL an hour. He is also getting IV Rocephin as mentioned above. He has a history of coronary disease, angina, CVA, diabetes, hypertension, myocardial infarction, urinary retention, neuropathy, stage III chronic kidney disease, and anemia. The patient has also had bypass grafting, and heart catheterization with stents. White count 5, hemoglobin 11.3, hemat ocrit 34.9, and platelet count 204,000. D-dimer is 0.71. Sodium 136, potassium 4.1, chlorides 104, CO2 24, anion gap 8, BUN 44, creatinine 1.70. C-reactive protein is 3.9. Calcium 8.3, and LDH is 335. Urinalysis was positive for trace protein, large positive leukocyte esterase, 81 WBCs, and many bacteria. Testing for coronavirus was positive. Chest x-ray was essentially normal save for some very mild atelectasis in the left midlung. This was not a new finding. On 05/10/2021 patient seen in follow-up on medical surgical floor, on 3 L of oxygen patient's pulse ox is 97%, lung sounds are diminished, no rhonchi or crackles were appreciated on today's exam, the nursing staff noted that patient doesn't desaturate when the FiO2 was turned down to 2 L. Patient reports a mild cough, but no respiratory distress. No couplets or chest discomfort, he is being treated for an acute urinary tract infection, he did have episodes of low- grade fever with a T-max of 100.5F overnight. Vital signs have been stable otherwise. His chest x-ray showed mild subsegmental atelectasis or scarring in the left midlung. Her calcitonin level was negative at 0.13. His LDH was within normal limits at 335, and CRP was 3.9. LFTs were within normal limits, today's labs have been reviewed, electric lites are within normal limits, his creatinine is improving and is down to 1.6, BUN is 37. Patient is currently on Rocephin for antibiotic coverage, currently on home dose Lasix 20 mg daily. Reports no nausea or vomiting. Appears weak. Patient denies being vaccinated against COVID 19 The patient is seen today 05/11/2021 in follow-up on the regular medical floor. He is currently resting fairly comfortably in bed. He denies any worsening shortness of breath, cough or congestion. He is maintaining O2 saturations in the 90s on room air. His chest x-ray had shown a left lower lobe infiltrate. He really has no pulmonary complaints. He was found to be positive for COVID- 19. He is also found to have a urinary tract infection secondary to Klebsiella pneumonia. Remains on ceftriaxone. White count 4.6. Hemoglobin 12.2. D-dimer 0.72. Sodium 142. Potassium 4.5. Creatinine 1.7. Glucose 57. C-reactive protein 5.2. LDH 157. Lovenox for DVT prophylaxis. Remains on vitamin supplements. Chest x-ray continues to show opacity in the left mid to lower lung field. Dopplers of the lower extremity were negative for DVT. Objective - Vital Signs Vital signs: Vital Signs Temp 99.5 F 05/11/21 10:00 Pulse 79 05/11/21 10:00 Resp 16 05/11/21 10:00 BP 154/64 05/11/21 10:00 Pulse Ox 98 05/11/21 10:00 Intake & Output 05/10/21 05/11/21 05/11/21 18:59 06:59 18:59 Intake Total 1200 600 Output Total 2100 800 Balance -900 -800 600 Intake: Oral 1200 600 Output: Urine 2100 800 Other: Voiding Method Indwelling Catheter Indwelling Catheter - Exam GENERAL EXAM: Alert, pleasant, weak 85-year-old male patient, on room air, c omfortable in no apparent distress. HEAD: Normocephalic. EYES: Normal reaction of pupils, equal size. NOSE: Clear with pink turbinates. THROAT: No erythema or exudates. NECK: No masses, no JVD. CHEST: No chest wall deformity. LUNGS: Equal air entry with crackles in the left lung base. CVS: S1 and S2 normal with no audible murmur, regular rhythm. ABDOMEN: No hepatosplenomegaly, normal bowel sounds, no guarding or rigidity. SPINE: No scoliosis or deformity SKIN: No rashes CENTRAL NERVOUS SYSTEM: No focal deficits, tone is normal in all 4 extremities. EXTREMITIES: There is no peripheral edema. No clubbing, no cyanosis. Peripheral pulses are intact. - Labs CBC & Chem 7: 05/11/21 05:19 05/11/21 05:19 Labs: Abnormal Lab Results - Last 24 Hours (Table) 05/10/21 05/10/21 05/11/21 Range/Units 20:12 21:19 05:19 Hgb (13.0-17.0) g/dL Hct (39.6-50.0) % MCH (27.0-32.0) pg MCHC (32.0-37.0) g/dL Eosinophils # (0.04-0.35) X 10*3/uL D-Dimer 0.72 H (<0.60) mg/L FEU BUN (9.0-27.0) mg/dL Creatinine (0.6-1.5) mg/dL Est GFR (CKD-EPI)AfAm (60.0-200.0) Est GFR (CKD-EPI)NonAf (60.0-200.0) BUN/Creatinine Ratio (12.00-20.00) Ratio Glucose (70-110) mg/dL POC Glucose (mg/dL) 264 H 204 H (75-99) mg/dL Calcium (8.7-10.3) mg/dL C-Reactive Protein (0.00-0.80) mg/dL 05/11/21 05/11/21 05/11/21 Range/Units 05:19 05:19 07:16 Hgb 12.2 L (13.0-17.0) g/dL Hct 38.8 L (39.6-50.0) % MCH 26.5 L (27.0-32.0) pg MCHC 31.4 L (32.0-37.0) g/dL Eosinophils # 0.03 L (0.04-0.35) X 10*3/uL D-Dimer (<0.60) mg/L FEU BUN 37.0 H (9.0-27.0) mg/dL Creatinine 1.7 H (0.6-1.5) mg/dL Est GFR (CKD-EPI)AfAm 42.0 L (60.0-200.0) Est GFR (CKD-EPI)NonAf 36.2 L (60.0-200.0) BUN/Creatinine Ratio 21.76 H (12.00-20.00) Ratio Glucose 57 L (70-110) mg/dL POC Glucose (mg/dL) 52 L (75-99) mg/dL Calcium 8.6 L (8.7-10.3) mg/dL C-Reactive Protein 5.20 H (0.00-0.80) mg/dL 05/11/21 Range/Units 07:55 Hgb (13.0-17.0) g/dL Hct (39.6-50.0) % MCH (27.0-32.0) pg MCHC (32.0-37.0) g/dL Eosinophils # (0.04-0.35) X 10*3/uL D-Dimer (<0.60) mg/L FEU BUN (9.0-27.0) mg/dL Creatinine (0.6-1.5) mg/dL Est GFR (CKD-EPI)AfAm (60.0-200.0) Est GFR (CKD-EPI)NonAf (60.0-200.0) BUN/Creatinine Ratio (12.00-20.00) Ratio Glucose (70-110) mg/dL POC Glucose (mg/dL) 112 H (75-99) mg/dL Calcium (8.7-10.3) mg/dL C-Reactive Protein (0.00-0.80) mg/dL Microbiology - Last 24 Hours (Table) 05/08/21 18:56 Urine Culture - Final Urine,Voided Klebsiella pneumoniae Assessment and Plan Assessment: 1 Acute COVID-19 infection, without clear evidence of pneumonia on the chest x- ray, time of symptom onset is unclear, patient is not a candidate for Remdesivir. Patient is not vaccinated against COVID-19. Patient presented to the emergency department primarily with symptoms of weakness and was discovered to have a urinary tract infection. Does report a mild cough and fever, but no shortness of breath. 2 Acute urinary tract infection currently on Rocephin, urine cultures positive for Klebsiella pneumoniae 3 History of CAD with previous bypass grafting, and previous stent placement 4 Prior history of myocardial infarction 5 History of diabetes with diabetic neuropathy 6 History of CVA 7 History of hypertension 8 History of stage III chronic kidney disease 9 History of urinary retention Plan: The patient was seen and evaluated Chest x-ray and labs reviewed Remains on room air Continued on ceftriaxone for Klebsiella pneumoniae UTI Lovenox for DVT prophylaxis Vitamin supplements PT/OT to evaluate for possible subacute rehab versus home with home care Cleared for discharge once cleared medically I, the cosigning physician, performed a history & physical examination of the patient. Lungs sounds with crackles in the left lung base. Maintaining good O2 saturations in the 90s on room air. I discussed the assessment and plan of care with my nurse practitioner, Maribel Ramos. I attest to the above note as dictated by her. I have personally seen and examined the patient, performed the documentation and the assessment and plan as written. Number of minutes spent on the visit: 10.
[2021-05-11] MEDS ORDERED: INSULIN DETEMIR (LEVEMIR) 100 UNIT/ML SYR SQ SCH (21:00)
--- NOTE | 2021-05-13 12:57 | P.DS ---
Providers Date of admission: 05/10/21 09:04 Expected date of discharge: 05/11/21 Attending physician: Fred Duff Consults: 05/09/21 09:20 Consult Physician Routine Consulting Provider: Lee Abel Consult Reason/Comments: COVID 19 infection Do you want consulting provider notified?: Yes Primary care physician: Fred Duff Hospital Course: Final Diagnoses: Acute COVID-19 infection Acute hypoxic respiratory failure secondary to the above Acute on chronic kidney disease, stage III Acute UTI with Klebsiella pneumonia in a patient with history of urinary retention CAD with history of NM, CABG Hypertension Diabetes mellitus II Diabetic neuropathy History of CVA Hospital course: This is an 85-year-old gentleman admitted with acute COVID-19 infection, acute UTI and multiple other medical issues. Maintained on Covid cocktail, ceftriaxone for Klebsiella pneumoniae UTI. Significant clinical improvement. Patient will require O2 at discharge; O2 sat at rest 94%, 84% on room air with exertion. Cleared by pulmonary for discharge. Patient will be discharged home today in a stable condition with guarded prognosis. The impression and plan of care has been dictated as directed. : I performed a history and examination of this patient, discussed the same with the dictator. I agree with the dictator's note ,documented as a scribe. Any additional findings or plans will be noted. Patient Condition at Discharge: Stable Plan - Discharge Summary Discharge Rx Participant: Yes New Discharge Prescriptions: New Cefuroxime Axetil [Ceftin] 500 mg PO BID 5 Days #10 tab Acetaminophen Tab [Tylenol] 650 mg PO Q6HR PRN tab PRN Reason: Mild Pain Or Fever > 100.5 Continue Clopidogrel [Plavix] 75 mg PO DAILY #30 tab Isosorbide Mononitrate ER [Imdur] 30 mg PO DAILY #30 tab.er.24h Furosemide [Lasix] 40 mg PO DAILY lisinopriL [Zestril] 10 mg PO DAILY #30 tab amLODIPine [Norvasc] 10 mg PO DAILY #30 tab Levothyroxine Sodium [Synthroid] 50 mcg PO AC-BRKFST Insulin Aspart Protam & Aspart [NovoLOG MIX 70-30 Flexpen] 12 unit SQ HS carvediloL [Coreg] 6.25 mg PO BID Atorvastatin [Lipitor] 40 mg PO HS Insulin Aspart Protam & Aspart [NovoLOG MIX 70-30 Flexpen] 10 unit SQ DAILY Insulin Aspart Protam & Aspart [NovoLOG MIX 70-30 Flexpen] See Protocol SQ HS Discharge Medication List Clopidogrel [Plavix] 75 mg PO DAILY #30 tab 11/20/15 [Rx] Isosorbide Mononitrate ER [Imdur] 30 mg PO DAILY #30 tab.er.24h 11/20/15 [Rx] Furosemide [Lasix] 40 mg PO DAILY 04/10/16 [History] amLODIPine [Norvasc] 10 mg PO DAILY #30 tab 04/17/16 [Rx] lisinopriL [Zestril] 10 mg PO DAILY #30 tab 04/17/16 [Rx] Atorvastatin [Lipitor] 40 mg PO HS 05/09/21 [History] Insulin Aspart Protam & Aspart [NovoLOG MIX 70-30 Flexpen] 10 unit SQ DAILY 05/09/21 [History] Insulin Aspart Protam & Aspart [NovoLOG MIX 70-30 Flexpen] 12 unit SQ HS 05/09/21 [History] Insulin Aspart Protam & Aspart [NovoLOG MIX 70-30 Flexpen] See Protocol SQ HS 05/09/21 [History] Levothyroxine Sodium [Synthroid] 50 mcg PO AC-BRKFST 05/09/21 [History] carvediloL [Coreg] 6.25 mg PO BID 05/09/21 [History] Acetaminophen Tab [Tylenol] 650 mg PO Q6HR PRN tab 05/11/21 [Rx] Cefuroxime Axetil [Ceftin] 500 mg PO BID 5 Days #10 tab 05/11/21 [Rx] Follow up Appointment(s)/Referral(s): Fred Duff DO [Primary Care Provider] - 05/18/21 10:50 am [facility] [NON-STAFF] - As Needed (oxygen) Care,Kate Senior [NON-STAFF] - As Needed Discharge Disposition: HOME SELF-CARE
== END 2021-05-11 16:29 | disposition home or self-care (01) | DRG 177 ==
LOC: EC 17:54 → 4SSUR 20:35 → OBSVTOIN 05-10 09:04
PROVIDERS: ADMIT Family Medicine; ATTEND Family Medicine
DX: U07.1 COVID-19 (principal); J96.01 Acute respiratory failure with hypoxia; N39.0 Urinary tract infection, site not specified; I13.0 Hypertensive heart and chronic kidney disease with heart failure and stage 1 through stage 4 chronic kidney disease, or unspecified chronic kidney disease; J98.11 Atelectasis; N17.9 Acute kidney failure, unspecified; Z66 Do not resuscitate; N18.30 Chronic kidney disease, stage 3 unspecified; B96.1 Klebsiella pneumoniae [K. pneumoniae] as the cause of diseases classified elsewhere; R33.9 Retention of urine, unspecified; E11.22 Type 2 diabetes mellitus with diabetic chronic kidney disease; E11.42 Type 2 diabetes mellitus with diabetic polyneuropathy; E11.51 Type 2 diabetes mellitus with diabetic peripheral angiopathy without gangrene; E11.65 Type 2 diabetes mellitus with hyperglycemia; E86.0 Dehydration; I25.10 Atherosclerotic heart disease of native coronary artery without angina pectoris; I25.2 Old myocardial infarction; D63.1 Anemia in chronic kidney disease; I50.9 Heart failure, unspecified; Z95.820 Peripheral vascular angioplasty status with implants and grafts; Z79.02 Long term (current) use of antithrombotics/antiplatelets; Z79.4 Long term (current) use of insulin; Z79.890 Hormone replacement therapy; Z79.899 Other long term (current) drug therapy; Z82.49 Family history of ischemic heart disease and other diseases of the circulatory system; Z83.3 Family history of diabetes mellitus; Z86.73 Personal history of transient ischemic attack (TIA), and cerebral infarction without residual deficits; Z87.891 Personal history of nicotine dependence; Z95.1 Presence of aortocoronary bypass graft; Z95.5 Presence of coronary angioplasty implant and graft; Z96.1 Presence of intraocular lens; Z98.41 Cataract extraction status, right eye; Z98.42 Cataract extraction status, left eye; Z98.890 Other specified postprocedural states; Z91.041 Radiographic dye allergy status
CPT/HCPCS: 36415; 71045; 71046; 80048; 80053; 81001; 82550; 82728; 83615; 83735; 84145; 84484; 85025; 85379; 86140; 87077; 87086; 87186; 87635; 93970; 96361; 96374; 99285

== ENCOUNTER 2021-05-14 10:46 | Inpatient (IN) | payer MEDICARE, BC ==
[2021-05-14] MEDS ORDERED: SODIUM CHLORIDE 0.9% 500 ML 500 ML IV STA (11:04)
--- NOTE | 2021-05-14 11:09 | ED ---
Weakness HPI - General Source: RN notes reviewed <Ronak Bradley - Last Filed: 05/14/21 14:59> <Pamela Morocho - Last Filed: 05/16/21 23:46> - General Stated complaint: Weakness Time Seen by Provider: 05/14/21 10:57 - History of Present Illness Initial comments: This is a pleasant 85-year-old male who presents emergency department complaining generalized weakness. Patient states he was seen here early in the week and was put on antibiotics for urinary tract infection. Patient does use a self catheter for BPH. Patient also diabetic. Patient has been taking the Atarax appropriately but states last night he had a hard time getting up and felt generally weak. He denied any chest pain or shortness of breath. Patient states that he has had this happen before and had to have a Alves catheter placed with didn't have to get up as often. Patient denies any fever. No headache, no fever or chills, no changes in vision or hearing, no sore throat or difficulty with speech, no neck pain, no chest pain or shortness of breath, no abdominal pain, no nausea or vomiting, no changes in urination or bowel movements, no numbness or tingling, no extremity pain, no skin rashes or lesions. Patient is oxygen dependent, 2 L/m nasal cannula (Ronak Bradley) - Related Data Home Medications Medication Instructions Recorded Confirmed Furosemide [Lasix] 40 mg PO DAILY 04/10/16 05/14/21 Atorvastatin [Lipitor] 40 mg PO HS 05/09/21 05/14/21 Insulin Aspart Protam & Aspart 10 unit SQ DAILY 05/09/21 05/14/21 [NovoLOG MIX 70-30 Flexpen] Insulin Aspart Protam & Aspart 12 unit SQ HS 05/09/21 05/14/21 [NovoLOG MIX 70-30 Flexpen] Insulin Aspart Protam & Aspart See Protocol SQ HS 05/09/21 05/14/21 [NovoLOG MIX 70-30 Flexpen] Levothyroxine Sodium [Synthroid] 50 mcg PO AC-BRKFST 05/09/21 05/14/21 carvediloL [Coreg] 6.25 mg PO BID 05/09/21 05/14/21 lisinopriL [Zestril] 5 mg PO DAILY 05/14/21 05/14/21 Previous Rx's Medication Instructions Recorded Clopidogrel [Plavix] 75 mg PO DAILY #30 tab 11/20/15 Isosorbide Mononitrate ER [Imdur] 30 mg PO DAILY #30 tab.er.24h 11/20/15 amLODIPine [Norvasc] 10 mg PO DAILY #30 tab 04/17/16 Acetaminophen Tab [Tylenol] 650 mg PO Q6HR PRN tab 05/11/21 Cefuroxime Axetil [Ceftin] 500 mg PO BID 5 Days #10 tab 05/11/21 Allergies Allergy/AdvReac Type Severity Reaction Status Date / Time Iodinated Contrast Media AdvReac Rash/Hives Verified 05/14/21 11:25 Review of Systems ROS Other: All systems not noted in ROS Statement are negative. <Ronak Bradley - Last Filed: 05/14/21 14:59> ROS Other: All systems not noted in ROS Statement are negative. <Pamela Morocho - Last Filed: 05/16/21 23:46> ROS Statement: Those systems with pertinent positive or pertinent negative responses have been documented in the HPI. Past Medical History Past Medical History: Coronary Artery Disease (CAD), Chest Pain / Angina, CVA/T IA, Diabetes Mellitus, Hypertension, Myocardial Infarction (ND), Renal Disease, Vascular Disorder Additional Past Medical History / Comment(s): URINARY RETENTION pt thinks pos sible from effects from stroke as well as L arm/leg weakness, REQUIRING SELF CATH, IDDM type II, bilateral NEUROPATHY hands and feet, PVD, ND'S with last one being 04/09/16, CKD stage III, normocytic anemia, UTIs. Last Myocardial Infarction Date:: 2016 History of Any Multi-Drug Resistant Organisms: None Reported Past Surgical History: Coronary Bypass/CABG, Heart Catheterization, Heart Catheterization With Stent Additional Past Surgical History / Comment(s): 5 VESSLEL BYPASS 2006, stent RT leg , arthrectomy/stent March 2016, bilateral cataract removal with lens implants. Past Anesthesia/Blood Transfusion Reactions: No Reported Reaction Date of Last Stent Placement:: 2016 Past Psychological History: No Psychological Hx Reported Additional Psychological History / Comment(s): Pt resides with his spouse. His [id number] is their chef de partie and is with them daily. Pt normally can ambulate with a walker. He no longer drives. His chef de partie takes him to appts. His chef de partie manages his medications. Smoking Status: Never smoker Past Alcohol Use History: None Reported Additional Past Alcohol Use History / Comment(s): Patient was a smoker one to 2 packs per day for 56 years and quit 10 years ago. Heavy etoh in the past - not current-quit 40 years ago. He denies any alcohol intake at this time. No marijuana or illicit drug use. 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 He lives at home with his . No pets in the home and no recent travel. He was in the [employer] stationed in [facility]. Past Drug Use History: None Reported - Past Family History Brother(s) Family Medical History: Myocardial Infarction (ND) Mother Family Medical History: Diabetes Mellitus Additional Family Medical History / Comment(s): AT AGE 93 Father Family Medical History: Myocardial Infarction (ND) Additional Family Medical History / Comment(s): AT AGE 83 FROM [place]. <Ronak Bradley - Last Filed: 05/14/21 14:59> General Exam General appearance: alert, in no apparent distress Head exam: Present: atraumatic, normocephalic, normal inspection Eye exam: Present: normal appearance, PERRL, EOMI. Absent: scleral icterus, conjunctival injection, periorbital swelling ENT exam: Present: normal exam, normal oropharynx, mucous membranes moist, TM's normal bilaterally Neck exam: Present: normal inspection. Absent: tenderness, meningismus, lymphadenopathy Respiratory exam: Present: normal lung sounds bilaterally. Absent: respiratory distress, wheezes, rales, rhonchi, stridor Cardiovascular Exam: Present: regular rate, normal rhythm, normal heart sounds. Absent: systolic murmur, diastolic murmur, rubs, gallop, clicks GI/Abdominal exam: Present: soft, normal bowel sounds. Absent: distended, tenderness, guarding, rebound, rigid Extremities exam: Present: normal inspection, full ROM, normal capillary refill. Absent: tenderness, pedal edema, joint swelling, calf tenderness Back exam: Present: normal inspection, CVA tenderness (R), CVA tenderness (L), other (Patient has tenderness to palpation across the lower abdomen, most prominently in the suprapubic area.) Neurological exam: Present: alert, oriented X3, CN II-XII intact Psychiatric exam: Present: normal affect, normal mood Skin exam: Present: warm, dry, intact, normal color. Absent: rash <KirkRonak - Last Filed: 05/14/21 14:59> - General Exam Comments Initial Comments: Deconditioned appearing elderly male in minimal distress. Patient appears to be L but not toxic. Capillary refill is 3-4 seconds. (Ronak Bradley) Course <KirkRonak - Last Filed: 05/14/21 14:59> Vital Signs 05/14/21 05/14/21 05/14/21 11:08 12:23 13:40 Temperature 98.4 F Pulse Rate 74 82 Respiratory 18 18 Rate Blood Pressure 158/51 161/85 O2 Sat by Pulse 100 94 L 85 L Oximetry 05/14/21 05/14/21 05/14/21 13:42 14:18 17:35 Temperature Pulse Rate 85 68 Respiratory 18 18 Rate Blood Pressure 161/98 154/90 O2 Sat by Pulse 95 100 100 Oximetry - Reevaluation(s) Reevaluation #1: 05/14/21 1300 Medical record is reviewed Symptoms are improved patient really has no significant complaints other than generalized weakness. Patient now on 2 L nasal oxygen which he wears at home. Patient is informed of results and questions answered Patient in no distress 05/14/21 14:48 Patient reevaluated again at 2:48 PM and is stable for admission. Case was discussed with the attending physician. (Ronak Bradley) EKG Findings - EKG Comments: EKG Findings:: EKG reveals an indeterminate axis, right bundle branch block, rate of 77, QRS duration 148 ms, QTC of IA interval normal. Patient has an RSR pattern in V1, V2, V3. Nonspecific changes. Patient does have a change in morphology from the previous EKG in 2019 <Ronak Bradley - Last Filed: 05/14/21 14:59> Medical Decision Making - Lab Data Result diagrams: 05/14/21 11:49 05/14/21 11:49 <KirkRonak - Last Filed: 05/14/21 14:59> - Lab Data Result diagrams: 05/14/21 11:49 05/14/21 11:49 <Pamela Morocho - Last Filed: 05/16/21 23:46> - Medical Decision Making Patient presented with generalized fatigue, stated that he was being treated for urinary tract infection. Urinalysis here is actually getting better. However the patient tested positive for COVID-19 as well as having an elevated troponin. Patient has nonspecific EKG changes when compared to the previous study. Discussed with the patient's PCP. Patient be admitted with cardiology consultation. The case was discussed in detail with ED attending physician. Presentation, findings, treatment plan discussed in detail. All findings discussed with patient, all questions answered. Patient's clinical presentation is not consistent with infectious process of the cardiopulmonary etiology. Does not seem to be consistent with pulmonary embolism. (Ronak Bradley) I was available for consultation in the emergency department. The history and physical exam were done by the midlevel provider. I was consulted for this patients care. I reviewed the case with the midlevel provider and based on their presentation of the patient, I agree with the assessment, medical decision making and plan of care as documented. Chart was dictated using [email or web address] dictation software. Attempts were made to correct any dictation errors however some typographical errors may persist. Patient was seen during a national state of emergency due to the Covid-19 pandemic. (Pamela Morocho) - Lab Data Lab Results 05/14/21 05/14/21 05/14/21 Range/Units 11:46 11:49 11:49 WBC 3.7 L (3.8-10.6) k/uL RBC 4.14 L (4.30-5.90) m/uL Hgb 11.6 L (13.0-17.5) gm/dL Hct 35.4 L (39.0-53.0) % MCV 85.6 (80.0-100.0) fL MCH 28.1 (25.0-35.0) pg MCHC 32.8 (31.0-37.0) g/dL RDW 14.0 (11.5-15.5) % Plt Count 132 L (150-450) k/uL MPV 7.4 Neutrophils % 60 % Lymphocytes % 30 % Monocytes % 8 % Eosinophils % 1 % Basophils % 1 % Neutrophils # 2.2 (1.3-7.7) k/uL Lymphocytes # 1.1 (1.0-4.8) k/uL Monocytes # 0.3 (0-1.0) k/uL Eosinophils # 0.0 (0-0.7) k/uL Basophils # 0.0 (0-0.2) k/uL Sodium 138 (137-145) mmol/L Potassium 5.0 (3.5-5.1) mmol/L Chloride 105 (98-107) mmol/L Carbon Dioxide 23 (22-30) mmol/L Anion Gap 10 mmol/L BUN 60 H (9-20) mg/dL Creatinine 1.91 H (0.66-1.25) mg/dL Est GFR (CKD-EPI)AfAm 36 (>60 ml/min/1.73 sqM) Est GFR (CKD-EPI)NonAf 32 (>60 ml/min/1.73 sqM) Glucose 156 H (74-99) mg/dL Plasma Lactic Acid Tervor (0.7-2.0) mmol/L Calcium 8.7 (8.4-10.2) mg/dL Total Bilirubin 0.6 (0.2-1.3) mg/dL AST 59 (17-59) U/L ALT 35 (4-49) U/L Alkaline Phosphatase 114 (38-126) U/L Troponin I (0.000-0.034) ng/mL NT-Pro-B Natriuret Pep pg/mL Total Protein 6.7 (6.3-8.2) g/dL Albumin 3.2 L (3.5-5.0) g/dL Lipase 111 (23-300) U/L Procalcitonin (0.02-0.09) ng/mL Urine Color Yellow Urine Appearance Clear (Clear) Urine pH 5.0 (5.0-8.0) Ur Specific Rexford 1.012 (1.001-1.035) Urine Protein 1+ H (Negative) Urine Glucose (UA) Negative (Negative) Urine Ketones Trace H (Negative) Urine Blood Trace H (Negative) Urine Nitrite Negative (Negative) Urine Bilirubin Negative (Negative) Urine Urobilinogen <2.0 (<2.0) mg/dL Ur Leukocyte Esterase Negative (Negative) Urine RBC 1 (0-5) /hpf Urine WBC 3 (0-5) /hpf Ur Squamous Epith Cells <1 (0-4) /hpf Hyaline Casts 3 H (0-2) /lpf Urine Mucus Rare H (None) /hpf Coronavirus (PCR) (Not Detectd) 05/14/21 05/14/21 05/14/21 Range/Units 11:49 11:49 11:49 WBC (3.8-10.6) k/uL RBC (4.30-5.90) m/uL Hgb (13.0-17.5) gm/dL Hct (39.0-53.0) % MCV (80.0-100.0) fL MCH (25.0-35.0) pg MCHC (31.0-37.0) g/dL RDW (11.5-15.5) % Plt Count (150-450) k/uL MPV Neutrophils % % Lymphocytes % % Monocytes % % Eosinophils % % Basophils % % Neutrophils # (1.3-7.7) k/uL Lymphocytes # (1.0-4.8) k/uL Monocytes # (0-1.0) k/uL Eosinophils # (0-0.7) k/uL Basophils # (0-0.2) k/uL Sodium (137-145) mmol/L Potassium (3.5-5.1) mmol/L Chloride (98-107) mmol/L Carbon Dioxide (22-30) mmol/L Anion Gap mmol/L BUN (9-20) mg/dL Creatinine (0.66-1.25) mg/dL Est GFR (CKD-EPI)AfAm (>60 ml/min/1.73 sqM) Est GFR (CKD-EPI)NonAf (>60 ml/min/1.73 sqM) Glucose (74-99) mg/dL Plasma Lactic Acid Trevor 1.0 (0.7-2.0) mmol/L Calcium (8.4-10.2) mg/dL Total Bilirubin (0.2-1.3) mg/dL AST (17-59) U/L ALT (4-49) U/L Alkaline Phosphatase (38-126) U/L Troponin I 0.069 H* (0.000-0.034) ng/mL NT-Pro-B Natriuret Pep 2860 pg/mL Total Protein (6.3-8.2) g/dL Albumin (3.5-5.0) g/dL Lipase (23-300) U/L Procalcitonin (0.02-0.09) ng/mL Urine Color Urine Appearance (Clear) Urine pH (5.0-8.0) Ur Specific Rexford (1.001-1.035) Urine Protein (Negative) Urine Glucose (UA) (Negative) Urine Ketones (Negative) Urine Blood (Negative) Urine Nitrite (Negative) Urine Bilirubin (Negative) Urine Urobilinogen (<2.0) mg/dL Ur Leukocyte Esterase (Negative) Urine RBC (0-5) /hpf Urine WBC (0-5) /hpf Ur Squamous Epith Cells (0-4) /hpf Hyaline Casts (0-2) /lpf Urine Mucus (None) /hpf Coronavirus (PCR) (Not Detectd) 05/14/21 05/14/21 Range/Units 11:49 12:21 WBC (3.8-10.6) k/uL RBC (4.30-5.90) m/uL Hgb (13.0-17.5) gm/dL Hct (39.0-53.0) % MCV (80.0-100.0) fL MCH (25.0-35.0) pg MCHC (31.0-37.0) g/dL RDW (11.5-15.5) % Plt Count (150-450) k/uL MPV Neutrophils % % Lymphocytes % % Monocytes % % Eosinophils % % Basophils % % Neutrophils # (1.3-7.7) k/uL Lymphocytes # (1.0-4.8) k/uL Monocytes # (0-1.0) k/uL Eosinophils # (0-0.7) k/uL Basophils # (0-0.2) k/uL Sodium (137-145) mmol/L Potassium (3.5-5.1) mmol/L Chloride (98-107) mmol/L Carbon Dioxide (22-30) mmol/L Anion Gap mmol/L BUN (9-20) mg/dL Creatinine (0.66-1.25) mg/dL Est GFR (CKD-EPI)AfAm (>60 ml/min/1.73 sqM) Est GFR (CKD-EPI)NonAf (>60 ml/min/1.73 sqM) Glucose (74-99) mg/dL Plasma Lactic Acid Trevor (0.7-2.0) mmol/L Calcium (8.4-10.2) mg/dL Total Bilirubin (0.2-1.3) mg/dL AST (17-59) U/L ALT (4-49) U/L Alkaline Phosphatase (38-126) U/L Troponin I (0.000-0.034) ng/mL NT-Pro-B Natriuret Pep pg/mL Total Protein (6.3-8.2) g/dL Albumin (3.5-5.0) g/dL Lipase (23-300) U/L Procalcitonin 0.17 H (0.02-0.09) ng/mL Urine Color Urine Appearance (Clear) Urine pH (5.0-8.0) Ur Specific [place] (1.001-1.035) Urine Protein (Negative) Urine Glucose (UA) (Negative) Urine Ketones (Negative) Urine Blood (Negative) Urine Nitrite (Negative) Urine Bilirubin (Negative) Urine Urobilinogen (<2.0) mg/dL Ur Leukocyte Esterase (Negative) Urine RBC (0-5) /hpf Urine WBC (0-5) /hpf Ur Squamous Epith Cells (0-4) /hpf Hyaline Casts (0-2) /lpf Urine Mucus (None) /hpf Coronavirus (PCR) Detected A (Not Detectd) Disposition Time of Disposition: 14:46 <Ronak Bradley - Last Filed: 05/14/21 14:59> <Pamela Morocho - Last Filed: 05/16/21 23:46> Clinical Impression: COVID-19, General weakness, Elevated troponin Disposition: ADMITTED IP TO THIS HOSP Condition: Fair
[2021-05-14 11:58] LABS: Basophils % (A) 1 %; Eosinophils % (A) 1 %; HCT 35.4 % (39.0-53.0); HGB 11.6 gm/dL (13.0-17.5); Lymphocytes # (A) 1.1 k/uL (1.0-4.8); Lymphocytes % (A) 30 %; MCH 28.1 pg (25.0-35.0); MCHC 32.8 g/dL (31.0-37.0); MCV 85.6 fL (80.0-100.0); Mean Platelet Volume 7.4; Monocytes # (A) 0.3 k/uL (0-1.0); Monocytes % (A) 8 %; Neutrophils # (A) 2.2 k/uL (1.3-7.7); Neutrophils % (A) 60 %; Platelet Count 132 k/uL (150-450); RBC 4.14 m/uL (4.30-5.90); WBC 3.7 k/uL (3.8-10.6)
[2021-05-14] MEDS ORDERED: MORPHINE SULFATE 4 MG/ML SYRINGE IV STA (12:17)
[2021-05-14] MEDS ORDERED: ONDANSETRON 4 MG/2 ML VIAL IVP STA (12:17)
[2021-05-14 12:18] LABS: Appearance,Urine Clear (Clear); Bilirubin,Urine Negative (Negative); Blood,Urine Trace (Negative); Color,Urine Yellow; Glucose,Urine (UA) Negative (Negative); Hyaline Casts,Urine 3 /lpf (0-2); Ketones,Urine Trace (Negative); Leukocyte Esterase,Urine Negative (Negative); Mucus,Urine Rare /hpf; Nitrite,Urine Negative (Negative); Protein,Urine 1+ (Negative); RBC,Urine 1 /hpf (0-5); Specific Gravity,Urine 1.012 (1.001-1.035); Squamous Epithelial Cell,Urine <1 /hpf (0-4); Urobilinogen,Urine <2.0 mg/dL (<2.0); WBC,Urine 3 /hpf (0-5)
--- NOTE | 2021-05-14 12:18 | CT ---
EXAMINATION TYPE: CT abdomen pelvis wo con DATE OF EXAM: 05/14/2021 COMPARISON: None HISTORY: pain CT DLP: 486.2 mGycm Examination of the solid and hollow viscera is limited given the lack of contrast. FINDINGS: LUNG BASES: No evidence for nodule. No evidence for infiltrate. LIVER/GB: The gallbladder is unremarkable. No space-occupying hepatic lesion. PANCREAS: No pancreatic mass identified. No inflammatory process seen. SPLEEN: No evidence for splenomegaly. No intrasplenic lesions seen. ADRENALS: No adrenal nodules identified. No evidence for thickening. KIDNEYS: No evidence for renal mass. Small nonobstructing renal calculi are seen bilaterally. Vascula r calcifications are also noted. No hydronephrosis. Alves balloon catheter is in place. BOWEL: Appendix has a normal appearance. No evidence of bowel obstruction. No inflammatory process. Lymph nodes: No evidence for adenopathy greater than 1 cm. Abdominal aorta: Atheromatous changes seen. No evidence for aneurysm. Genital organs: No significant abnormality. Other: No significant abnormality. IMPRESSION: 1. No acute intra-abdominal process seen at this time.
--- NOTE | 2021-05-14 12:25 | XR ---
EXAMINATION TYPE: XR chest 1V DATE OF EXAM: 05/14/2021 HISTORY: Shortness of breath. COMPARISON: 05/11/2021 TECHNIQUE: Single view of the chest is submitted. FINDINGS: Demonstrated are scattered senescent parenchymal change. Persistent lingular infiltrate identified. The heart is stable. Hilar and mediastinal structures are within normal limits. Degenerative changes are seen of the dorsal spine. IMPRESSION: 1. Persistent lingular infiltrate identified.
[2021-05-14 12:26] LABS: Albumin 3.2 g/dL (3.5-5.0); Calcium 8.7 mg/dL (8.4-10.2); Total Bilirubin 0.6 mg/dL (0.2-1.3); Total Protein 6.7 g/dL (6.3-8.2)
[2021-05-14] MEDS ORDERED: ASPIRIN 81 MG PO STA (13:37)
[2021-05-14] MEDS ORDERED: NALOXONE 0.4 MG/ML 1 ML VIAL IV PRN (14:50)
[2021-05-14] MEDS ORDERED: ALBUTEROL HFA INHALER INHALATION PRN (14:50)
[2021-05-14] MEDS ORDERED: ACETAMINOPHEN TAB 325 MG TAB PO PRN (14:50)
[2021-05-14] MEDS ORDERED: ONDANSETRON 4 MG/2 ML VIAL IVP PRN (14:50)
[2021-05-14] MEDS ORDERED: ENOXAPARIN 80 MG/0.8 ML SYRINGE SQ SCH (15:00)
[2021-05-14] MEDS: ENOXAPARIN 30 MG/0.3 ML SYRINGE SQ SCH (17:36)
[2021-05-14] MEDS: dexAMETHasone 2 MG TAB PO SCH (17:36)
[2021-05-14 20:34] LABS: Glucose,Whole Blood 138 mg/dL (75-99)
[2021-05-14] MEDS: INSULN ASP PRT/INSULIN ASPART 100 UNIT/ML 10 ML VIAL SQ SCH ×2 (20:39→20:52)
[2021-05-14] MEDS: INSULIN ASPART (NovoLOG) 100 UNIT/ML VIAL SQ SCH (20:42)
[2021-05-14] MEDS: carvediloL 6.25 MG TAB PO SCH (20:42)
[2021-05-14] MEDS ORDERED: ATORVASTATIN 40 MG TAB PO SCH (21:00)
[2021-05-14 22:02] VITALS: RESP 16
[2021-05-15 00:27] VITALS: TEMP 98.2
[2021-05-15] MEDS: carvediloL 6.25 MG TAB PO SCH (06:26)
[2021-05-15] MEDS: INSULIN ASPART (NovoLOG) 100 UNIT/ML VIAL SQ SCH ×2 (06:26→12:38)
[2021-05-15 06:27] LABS: Glucose,Whole Blood 200 mg/dL (75-99)
[2021-05-15] MEDS ORDERED: LEVOTHYROXINE 50 MCG TAB PO SCH (07:30)
[2021-05-15] MEDS ORDERED: INSULN ASP PRT/INSULIN ASPART 100 UNIT/ML 10 ML VIAL SQ SCH (09:00)
[2021-05-15] MEDS ORDERED: amLODIPine 10 MG TAB PO SCH (09:00)
[2021-05-15] MEDS ORDERED: ISOSORBIDE MONONITRATE ER 30 MG TAB.ER.24H PO SCH (09:00)
[2021-05-15] MEDS ORDERED: CLOPIDOGREL 75 MG TAB PO SCH (09:00)
--- NOTE | 2021-05-15 09:33 | P.HPIM ---
History of Present Illness Patient is 85-year-old male came in with the comments of generalized weakness unable to take care of himself at home. Patient was discharged couple days ago after he was treated for COVID-19. Patient the denied any fever chills. P [place] doesn't have any chest pain patient has mildly elevated troponin of 0.06 not high enough to say acute myocardial infarction EKG showed some nonspecific ST-T wave changes and right bundle branch block changes. Patient was a valid by cardiology they're not recommending any further workup regarding cardiac perspective and they do not believe patient has an acute myocardial infarction. Patient the lives with his who has Parkinson's cannot take care of him as well. Patient at was evaluated by physical therapy and occupational therapy before his discharge and they recommended home physical therapy. I'm consulting physical therapy again here if they cleared him for discharge with home care patient will be discharged are as patient will end up staying in the hospital to be placed in subacute rehabilitation. There is no other symptoms at this time. She was discharged on Kristi Derrell presently on 2 L and saturating at 98% probably will not need that 2 L either. REVIEW OF SYSTEMS: CONSTITUTIONAL: No feve. HEENT: No recent visual problems or hearing problems. Denied any sore throat. CARDIOVASCULAR: No chest pain, orthopnea, PND, no palpitations, no syncope. PULMONARY: No shortness of breath, no cough, no hemoptysis. GASTROINTESTINAL: No diarrhea, no nausea, no vomiting, no abdominal pain. NEUROLOGICAL: No headaches, no weakness, no numbness. HEMATOLOGICAL: Denies any bleeding or petechiae. GENITOURINARY: Denies any burning micturition, frequency, or urgency. MUSCULOSKELETAL/RHEUMATOLOGICAL: Denies any joint pain, swelling, or any muscle pain. ENDOCRINE: Denies any polyuria or polydipsia. The rest of the 14-point review of systems is negative. PHYSICAL EXAMINATION: GENERAL: The patient is alert and oriented x3, not in any acute distress. Well d eveloped, well nourished. HEENT: Pupils are round and equally reacting to light. EOMI. No scleral icterus. No conjunctival pallor. Normocephalic, atraumatic. No pharyngeal erythema. No thyromegaly. CARDIOVASCULAR: S1 and S2 present. No murmurs, rubs, or gallops. PULMONARY: Chest is clear to auscultation, no wheezing or crackles. ABDOMEN: Soft, nontender, nondistended, normoactive bowel sounds. No palpable organomegaly. MUSCULOSKELETAL: No joint swelling or deformity. EXTREMITIES: No cyanosis, clubbing, or pedal edema. NEUROLOGICAL: Gross neurological examination did not reveal any focal deficits. SKIN: No rashes. Assessment and plan - generalized weakness: Secondary to his hospitalization and COVID-19 which was recent, plan as mentioned above physical therapy outpatient therapy evaluation depending on that evaluation patient will be discharged with home PT today or if needed patient will be discharged on Monday to subacute rehabilitation. Recent urinary tract infection with Klebsiella for which patient is on Ceftin which she will complete the course of therapy. -Chronic kidney disease is stage IV second possible diabetic nephropathy next and-type 2 diabetes mellitus -Highly in normal potassium levels patient is on lisinopril because of this I'm going to repeat the basic metabolic profile as an outpatient to make sure patient is not becoming hypokalemic. Next and-hypertension patient on multiple medications including amlodipine and lisinopril and a beta jaylyn -Coronary artery disease with history of MT and CABG in the past -Type 2 diabetes mellitus -Diabetic neuropathy and nephropathy DVT prophylaxis: Lovenox if he stays in the hospital Past Medical History Past Medical History: Coronary Artery Disease (CAD), Chest Pain / Angina, CVA/TIA, Diabetes Mellitus, Hypertension, Myocardial Infarction ([place]), Renal Disease, Vascular Disorder Additional Past Medical History / Comment(s): urinary retention requiring self- catheterization, pt thinks possible from effects from stroke as well as L arm/leg weakness, IDDM type II, bilateral neuropathy of hands and feet, PVD, [place] - 04/09/16, CKD stage III, normocytic anemia, UTIs Last Myocardial Infarction Date:: 2016 History of Any Multi-Drug Resistant Organisms: None Reported Past Surgical History: Coronary Bypass/CABG, Heart Catheterization, Heart Catheterization With Stent Additional Past Surgical History / Comment(s): 5 VESSEL BYPASS 2006, stent RT leg , arthrectomy/stent March 2016, bilateral cataract removal with lens implants Past Anesthesia/Blood Transfusion Reactions: No Reported Reaction Date of Last Stent Placement:: 2016 Past Psychological History: No Psychological Hx Reported Smoking Status: Former smoker Past Drug Use History: None Reported - Past Family History Brother(s) Family Medical History: Myocardial Infarction ([place]) Mother Family Medical History: Diabetes Mellitus Additional Family Medical History / Comment(s): AT AGE 93 Father Family Medical History: Myocardial Infarction ([place]) Additional Family Medical History / Comment(s): AT AGE 83 FROM [place]. Medications and Allergies Home Medications Medication Instructions Recorded Confirmed Type Clopidogrel [Plavix] 75 mg PO DAILY #30 tab 11/20/15 05/14/21 Rx Isosorbide Mononitrate ER [Imdur] 30 mg PO DAILY #30 tab.er.24h 11/20/15 05/14/21 Rx Furosemide [Lasix] 40 mg PO DAILY 04/10/16 05/14/21 History amLODIPine [Norvasc] 10 mg PO DAILY #30 tab 04/17/16 05/14/21 Rx Atorvastatin [Lipitor] 40 mg PO HS 05/09/21 05/14/21 History Insulin Aspart Protam & Aspart 10 unit SQ DAILY 05/09/21 05/14/21 History [NovoLOG MIX 70-30 Flexpen] Insulin Aspart Protam & Aspart 12 unit SQ HS 05/09/21 05/14/21 History [NovoLOG MIX 70-30 Flexpen] Insulin Aspart Protam & Aspart See Protocol SQ HS 05/09/21 05/14/21 History [NovoLOG MIX 70-30 Flexpen] Levothyroxine Sodium [Synthroid] 50 mcg PO AC-BRKFST 05/09/21 05/14/21 History carvediloL [Coreg] 6.25 mg PO BID 05/09/21 05/14/21 History Acetaminophen Tab [Tylenol] 650 mg PO Q6HR PRN tab 05/11/21 05/14/21 Rx Cefuroxime Axetil [Ceftin] 500 mg PO BID 5 Days #10 tab 05/11/21 05/14/21 Rx lisinopriL [Zestril] 5 mg PO DAILY 05/14/21 05/14/21 History Allergies Allergy/AdvReac Type Severity Reaction Status Date / Time Iodinated Contrast Media AdvReac Rash/Hives Verified 05/14/21 11:25 Physical Exam Vitals: Vital Signs Temp Pulse Pulse Resp BP BP Pulse Ox 05/15/21 04:00 98.2 F 56 L 16 142/66 98 05/15/21 00:00 98.2 F 60 16 134/61 97 05/14/21 20:00 98.7 F 71 16 178/73 99 05/14/21 17:35 68 18 154/90 100 05/14/21 14:18 85 18 161/98 100 05/14/21 13:42 95 05/14/21 13:40 85 L 05/14/21 12:23 82 18 161/85 94 L 05/14/21 11:08 98.4 F 74 18 158/51 100 Intake and Output 05/14/21 05/15/21 05/15/21 22:59 06:59 14:59 Intake Total 10 Output Total 350 Balance 10 -350 Intake: IV 10 Invasive Line 1 10 Output: Urine 350 Other: Voiding Method Indwelling Catheter Indwelling Catheter Weight 63.503 kg Results CBC & Chem 7: 05/14/21 11:49 05/14/21 11:49 Labs: Abnormal Lab Results - Last 24 Hours (Table) 05/14/21 05/14/21 05/14/21 Range/Units 11:46 11:49 11:49 WBC 3.7 L (3.8-10.6) k/uL RBC 4.14 L (4.30-5.90) m/uL Hgb 11.6 L (13.0-17.5) gm/dL Hct 35.4 L (39.0-53.0) % Plt Count 132 L (150-450) k/uL BUN 60 H (9-20) mg/dL Creatinine 1.91 H (0.66-1.25) mg/dL Glucose 156 H (74-99) mg/dL POC Glucose (mg/dL) (75-99) mg/dL Troponin I (0.000-0.034) ng/mL Albumin 3.2 L (3.5-5.0) g/dL Procalcitonin (0.02-0.09) ng/mL Urine Protein 1+ H (Negative) Urine Ketones Trace H (Negative) Urine Blood Trace H (Negative) Hyaline Casts 3 H (0-2) /lpf Urine Mucus Rare H (None) /hpf Coronavirus (PCR) (Not Detectd) 05/14/21 05/14/21 05/14/21 Range/Units 11:49 11:49 12:21 WBC (3.8-10.6) k/uL RBC (4.30-5.90) m/uL Hgb (13.0-17.5) gm/dL Hct (39.0-53.0) % Plt Count (150-450) k/uL BUN (9-20) mg/dL Creatinine (0.66-1.25) mg/dL Glucose (74-99) mg/dL POC Glucose (mg/dL) (75-99) mg/dL Troponin I 0.069 H* (0.000-0.034) ng/mL Albumin (3.5-5.0) g/dL Procalcitonin 0.17 H (0.02-0.09) ng/mL Urine Protein (Negative) Urine Ketones (Negative) Urine Blood (Negative) Hyaline Casts (0-2) /lpf Urine Mucus (None) /hpf Coronavirus (PCR) Detected A (Not Detectd) 05/14/21 05/14/21 05/14/21 Range/Units 16:22 18:51 20:31 WBC (3.8-10.6) k/uL RBC (4.30-5.90) m/uL Hgb (13.0-17.5) gm/dL Hct (39.0-53.0) % Plt Count (150-450) k/uL BUN (9-20) mg/dL Creatinine (0.66-1.25) mg/dL Glucose (74-99) mg/dL POC Glucose (mg/dL) 138 H (75-99) mg/dL Troponin I 0.068 H* 0.067 H* (0.000-0.034) ng/mL Albumin (3.5-5.0) g/dL Procalcitonin (0.02-0.09) ng/mL Urine Protein (Negative) Urine Ketones (Negative) Urine Blood (Negative) Hyaline Casts (0-2) /lpf Urine Mucus (None) /hpf Coronavirus (PCR) (Not Detectd) 05/15/21 Range/Units 06:24 WBC (3.8-10.6) k/uL RBC (4.30-5.90) m/uL Hgb (13.0-17.5) gm/dL Hct (39.0-53.0) % Plt Count (150-450) k/uL BUN (9-20) mg/dL Creatinine (0.66-1.25) mg/dL Glucose (74-99) mg/dL POC Glucose (mg/dL) 200 H (75-99) mg/dL Troponin I (0.000-0.034) ng/mL Albumin (3.5-5.0) g/dL Procalcitonin (0.02-0.09) ng/mL Urine Protein (Negative) Urine Ketones (Negative) Urine Blood (Negative) Hyaline Casts (0-2) /lpf Urine Mucus (None) /hpf Coronavirus (PCR) (Not Detectd) Thrombosis Risk Factor Assmnt - Choose All That Apply Any of the Below Risk Factors Present?: No Other Risk Factors: Yes Each Risk Factor Represents 3 Points: Age 75 years or older Other congenital or acquired thrombophilia - If yes, enter type in comment: No Thrombosis Risk Factor Assessment Total Risk Factor Score: 3 Thrombosis Risk Factor Assessment Level: Moderate Risk
--- NOTE | 2021-05-15 09:33 | P.DS ---
Providers Date of admission: 05/14/21 14:51 Attending physician: Fred Duff Consults: 05/14/21 14:50 Consult Physician Urgent Consulting Provider: Caden Garcias Consult Reason/Comments: Elevated troponin Do you want consulting provider notified?: Yes Primary care physician: Fred Duff Hospital Course: Possible discharge after evaluation with physical therapy and occupational therapy please refer to my history of present illness from today for further details Patient Condition at Discharge: Fair Plan - Discharge Summary Discharge Rx Participant: Yes New Discharge Prescriptions: No Action Clopidogrel [Plavix] 75 mg PO DAILY #30 tab Isosorbide Mononitrate ER [Imdur] 30 mg PO DAILY #30 tab.er.24h Furosemide [Lasix] 40 mg PO DAILY amLODIPine [Norvasc] 10 mg PO DAILY #30 tab Levothyroxine Sodium [Synthroid] 50 mcg PO AC-BRKFST Insulin Aspart Protam & Aspart [NovoLOG MIX 70-30 Flexpen] 12 unit SQ HS Cefuroxime Axetil [Ceftin] 500 mg PO BID 5 Days #10 tab lisinopriL [Zestril] 5 mg PO DAILY carvediloL [Coreg] 6.25 mg PO BID Atorvastatin [Lipitor] 40 mg PO HS Insulin Aspart Protam & Aspart [NovoLOG MIX 70-30 Flexpen] 10 unit SQ DAILY Insulin Aspart Protam & Aspart [NovoLOG MIX 70-30 Flexpen] See Protocol SQ HS Acetaminophen Tab [Tylenol] 650 mg PO Q6HR PRN tab PRN Reason: Mild Pain Or Fever > 100.5 Discharge Medication List Clopidogrel [Plavix] 75 mg PO DAILY #30 tab 11/20/15 [Rx] Isosorbide Mononitrate ER [Imdur] 30 mg PO DAILY #30 tab.er.24h 11/20/15 [Rx] Furosemide [Lasix] 40 mg PO DAILY 04/10/16 [History] amLODIPine [Norvasc] 10 mg PO DAILY #30 tab 04/17/16 [Rx] Atorvastatin [Lipitor] 40 mg PO HS 05/09/21 [History] Insulin Aspart Protam & Aspart [NovoLOG MIX 70-30 Flexpen] 10 unit SQ DAILY 05/09/21 [History] Insulin Aspart Protam & Aspart [NovoLOG MIX 70-30 Flexpen] 12 unit SQ HS 05/09/21 [History] Insulin Aspart Protam & Aspart [NovoLOG MIX 70-30 Flexpen] See Protocol SQ HS 05/09/21 [History] Levothyroxine Sodium [Synthroid] 50 mcg PO AC-BRKFST 05/09/21 [History] carvediloL [Coreg] 6.25 mg PO BID 05/09/21 [History] Acetaminophen Tab [Tylenol] 650 mg PO Q6HR PRN tab 05/11/21 [Rx] Cefuroxime Axetil [Ceftin] 500 mg PO BID 5 Days #10 tab 05/11/21 [Rx] lisinopriL [Zestril] 5 mg PO DAILY 05/14/21 [History] Follow up Appointment(s)/Referral(s): Fred Duff DO [Primary Care Provider] - 3 Days Ambulatory/Diagnostic Orders: Basic Metabolic Panel [LAB.AMB] Time Frame: 3 Days, Location: None Selected Discharge Disposition: HOME WITH HOME HEALTH SERVICES
[2021-05-15] MEDS: dexAMETHasone 2 MG TAB PO SCH (09:44)
[2021-05-15] MEDS: ENOXAPARIN 30 MG/0.3 ML SYRINGE SQ SCH (10:54)
[2021-05-15 11:53] LABS: Glucose,Whole Blood 246 mg/dL (75-99)
[2021-05-15 13:42] VITALS: BP 139/64; PULSE 57
--- NOTE | 2021-05-15 14:55 | CONS ---
CONSULTATION Fred Patton is an 85-year-old gentleman who was admitted to the hospital and is positive for COVID. This gentleman has history of CAD, prior bypass surgery and PCI, but CAD has been stable. He does not have any anginal symptoms. He was discharged a few days ago after being treated for COVID pneumonia. He comes into the hospital this time complaining of generalized weakness and lack of energy. He has no chest pain or shortness of breath. Troponin profile does not suggest myocardial injury. He is resting comfortably without symptoms with room-air oxygen saturation of about 94%. PAST MEDICAL HISTORY: 1. CAD with prior bypass surgery and PCI. 2. Hypertension. 3. Hyperlipidemia. 4. Type 2 diabetes mellitus. MEDICATIONS: Medications at home include Plavix, Imdur, Lasix, amlodipine, Lipitor, insulin, levothyroxine, carvedilol. ALLERGIES: IODINE. PHYSICAL EXAMINATION: Blood pressure is 138/70, pulse rate is 58 per minute, regular. HEENT unremarkable. Fundus was not examined. Neck is supple. There is no JVD. I do not hear a carotid bruit. Heart exam reveals S1, S2 with a short systolic murmur. No significant gallops. Lungs revealed decent air entry. Abdomen is soft, nontender. Lower extremities reveal diminished pulses. Central nervous system grossly within normal limits. EKG revealed sinus mechanism with a right bundle branch block pattern and repolarization abnormality. Laboratory data reveal that his troponin profile is not suggestive of myocardial injury; the numbers are all 0.063 values. IMPRESSION: 1. Generalized weakness. 2. Stable coronary artery disease with no evidence of any acute myocardial injury. 3. History of recent COVID pneumonia. RECOMMENDATIONS: From a cardiac standpoint, no intervention is necessary. Same medical regimen. He can be discharged and he may benefit from some physical therapy to improve his conditioning and strength for his muscles. Patient can be discharged today. MMODL / IJN: [id number] /
[2021-05-15] MEDS ORDERED: HEPARIN SODIUM,PORCINE/PF 5,000 UNIT/0.5 ML SYRINGE SQ SCH (16:00)
== END 2021-05-15 14:00 | disposition home health service (06) | DRG 178 ==
LOC: EC 10:46 → 3SCARD 14:51
PROVIDERS: ADMIT Family Medicine; ATTEND Family Medicine
DX: U07.1 COVID-19 (principal); N39.0 Urinary tract infection, site not specified; N18.4 Chronic kidney disease, stage 4 (severe); R53.1 Weakness; I12.9 Hypertensive chronic kidney disease with stage 1 through stage 4 chronic kidney disease, or unspecified chronic kidney disease; E11.22 Type 2 diabetes mellitus with diabetic chronic kidney disease; I25.10 Atherosclerotic heart disease of native coronary artery without angina pectoris; E11.51 Type 2 diabetes mellitus with diabetic peripheral angiopathy without gangrene; I45.10 Unspecified right bundle-branch block; N40.0 Benign prostatic hyperplasia without lower urinary tract symptoms; E78.5 Hyperlipidemia, unspecified; E11.40 Type 2 diabetes mellitus with diabetic neuropathy, unspecified; I25.2 Old myocardial infarction; Z79.02 Long term (current) use of antithrombotics/antiplatelets; Z79.4 Long term (current) use of insulin; Z79.890 Hormone replacement therapy; Z79.899 Other long term (current) drug therapy; Z82.49 Family history of ischemic heart disease and other diseases of the circulatory system; Z83.3 Family history of diabetes mellitus; Z86.73 Personal history of transient ischemic attack (TIA), and cerebral infarction without residual deficits; Z87.01 Personal history of pneumonia (recurrent); Z87.891 Personal history of nicotine dependence; Z95.1 Presence of aortocoronary bypass graft; Z96.1 Presence of intraocular lens; Z98.41 Cataract extraction status, right eye; Z98.42 Cataract extraction status, left eye; Z99.81 Dependence on supplemental oxygen; Z91.041 Radiographic dye allergy status; Z95.820 Peripheral vascular angioplasty status with implants and grafts
CPT/HCPCS: 36415; 71045; 74176; 80053; 81001; 83605; 83690; 83880; 84100; 84145; 84484; 85025; 87635; 93005; 96361; 96374; 96375; 99285

== ENCOUNTER 2021-05-17 16:05 | Inpatient (IN) | payer MEDICARE, BC ==
[2021-05-17] MEDS ORDERED: SODIUM CHLORIDE 0.9% 1,000 ML IV STA (16:30)
[2021-05-17] MEDS ORDERED: SODIUM CHLORIDE 0.9% 500 ML 500 ML IV STA (16:30)
--- NOTE | 2021-05-17 16:34 | ED ---
Weakness HPI - General Stated complaint: covid+, weakness Time Seen by Provider: 05/17/21 16:08 Source: EMS, RN notes reviewed, old records reviewed Mode of arrival: EMS - History of Present Illness Initial comments: 85-year-old male was diagnosed with COVID-19 3 days ago for an I EMS today because of generalized weakness he apparently fell and could not get himself up the floor. He did sustain an abrasion to left forearm as well as right great toe. He's not been eating and drinking very well. He is been refusing wears oxygen at home he was 88% on room air per paramedics this did improve to 96 on oxygen. He purely slipped off the bed and could not get up. His could not assist him. He was found have a temperature 101.2 blood pressure is 180/96 to have a right bundle-branch block. Glucose levels around 300. No nausea no vomiting no other current complaints MD Complaint: generalized weakness - Related Data Home Medications Medication Instructions Recorded Confirmed Furosemide [Lasix] 40 mg PO DAILY 04/10/16 05/14/21 Atorvastatin [Lipitor] 40 mg PO HS 05/09/21 05/14/21 Insulin Aspart Protam & Aspart 10 unit SQ DAILY 05/09/21 05/14/21 [NovoLOG MIX 70-30 Flexpen] Insulin Aspart Protam & Aspart 12 unit SQ HS 05/09/21 05/14/21 [NovoLOG MIX 70-30 Flexpen] Insulin Aspart Protam & Aspart See Protocol SQ HS 05/09/21 05/14/21 [NovoLOG MIX 70-30 Flexpen] Levothyroxine Sodium [Synthroid] 50 mcg PO AC-BRKFST 05/09/21 05/14/21 carvediloL [Coreg] 6.25 mg PO BID 05/09/21 05/14/21 lisinopriL [Zestril] 5 mg PO DAILY 05/14/21 05/14/21 Previous Rx's Medication Instructions Recorded Clopidogrel [Plavix] 75 mg PO DAILY #30 tab 11/20/15 Isosorbide Mononitrate ER [Imdur] 30 mg PO DAILY #30 tab.er.24h 11/20/15 amLODIPine [Norvasc] 10 mg PO DAILY #30 tab 04/17/16 Acetaminophen Tab [Tylenol] 650 mg PO Q6HR PRN tab 05/11/21 Cefuroxime Axetil [Ceftin] 500 mg PO BID 5 Days #10 tab 05/11/21 Allergies Allergy/AdvReac Type Severity Reaction Status Date / Time Iodinated Contrast Media AdvReac Rash/Hives Verified 05/14/21 11:25 Review of Systems ROS Statement: Those systems with pertinent positive or pertinent negative responses have been documented in the HPI. ROS Other: All systems not noted in ROS Statement are negative. Past Medical History Past Medical History: Coronary Artery Disease (CAD), Chest Pain / Angina, CVA/TIA, Diabetes Mellitus, Hypertension, Myocardial Infarction ([place]), Renal Disease, Vascular Disorder Additional Past Medical History / Comment(s): urinary retention requiring self- catheterization, pt thinks possible from effects from stroke as well as L arm/leg weakness, IDDM type II, bilateral neuropathy of hands and feet, PVD, [place] - 04/09/16, CKD stage III, normocytic anemia, UTIs Last Myocardial Infarction Date:: 2016 History of Any Multi-Drug Resistant Organisms: None Reported Past Surgical History: Coronary Bypass/CABG, Heart Catheterization, Heart Catheterization With Stent Additional Past Surgical History / Comment(s): 5 VESSEL BYPASS 2006, stent RT leg , arthrectomy/stent March 2016, bilateral cataract removal with lens implants Past Anesthesia/Blood Transfusion Reactions: No Reported Reaction Date of Last Stent Placement:: 2016 Past Psychological History: No Psychological Hx Reported Smoking Status: Former smoker Past Drug Use History: None Reported - Past Family History Brother(s) Family Medical History: Myocardial Infarction ([place]) Mother Family Medical History: Diabetes Mellitus Additional Family Medical History / Comment(s): AT AGE 93 Father Family Medical History: Myocardial Infarction ([place]) Additional Family Medical History / Comment(s): AT AGE 83 FROM [place]. General Exam - General Exam Comments Initial Comments: Well-developed well-nourished awake alert somewhat confused male Limitations: altered mental status General appearance: alert, anxious Head exam: Present: atraumatic, normocephalic, normal inspection Eye exam: Present: normal appearance, PERRL, EOMI. Absent: scleral icterus, conjunctival injection, periorbital swelling ENT exam: Present: mucous membranes dry Neck exam: Present: normal inspection, full ROM, other. Absent: tenderness, meningismus, lymphadenopathy Respiratory exam: Present: decreased breath sounds (No stridor JVD or bruits). Absent: respiratory distress, wheezes, rales, rhonchi, stridor Cardiovascular Exam: Present: regular rate, normal rhythm, normal heart sounds. Absent: systolic murmur, diastolic murmur, rubs, gallop, clicks GI/Abdominal exam: Present: soft, normal bowel sounds. Absent: distended, tenderness, guarding, rebound, rigid Rectal exam: Present: deferred Extremities exam: Present: full ROM, normal capillary refill, other (Skin also seen to the proximal lateral forearm with evidence of avulsion injury to the great toe and a right). Absent: tenderness, pedal edema, joint swelling, calf tenderness Back exam: Present: normal inspection. Absent: tenderness Neurological exam: Present: alert, altered, CN II-XII intact Psychiatric exam: Present: normal affect, anxious Skin exam: Present: warm, dry, normal color. Absent: intact, rash Course Vital Signs 05/17/21 16:27 Temperature 101.5 F H Pulse Rate 86 Respiratory 20 Rate O2 Sat by Pulse 97 Oximetry Medical Decision Making - Medical Decision Making I did discuss the case with Dr. Duff patient will be admitted he does have a history of UTI urine is pending at this time patient does have a fever started - Lab Data Result diagrams: 05/17/21 17:07 05/17/21 17:07 Lab Results 05/17/21 05/17/21 05/17/21 Range/Units 17:07 17:07 17:07 WBC 6.9 (3.8-10.6) k/uL RBC 4.55 (4.30-5.90) m/uL Hgb 12.7 L (13.0-17.5) gm/dL Hct 38.3 L (39.0-53.0) % MCV 84.1 (80.0-100.0) fL MCH 27.9 (25.0-35.0) pg MCHC 33.1 (31.0-37.0) g/dL RDW 13.9 (11.5-15.5) % Plt Count 194 (150-450) k/uL MPV 7.9 Neutrophils % 77 % Lymphocytes % 14 % Monocytes % 7 % Eosinophils % 0 % Basophils % 1 % Neutrophils # 5.3 (1.3-7.7) k/uL Lymphocytes # 1.0 (1.0-4.8) k/uL Monocytes # 0.5 (0-1.0) k/uL Eosinophils # 0.0 (0-0.7) k/uL Basophils # 0.1 (0-0.2) k/uL D-Dimer (<0.60) mg/L FEU Sodium 136 L (137-145) mmol/L Potassium 5.1 (3.5-5.1) mmol/L Chloride 104 (98-107) mmol/L Carbon Dioxide 20 L (22-30) mmol/L Anion Gap 12 mmol/L BUN 95 H (9-20) mg/dL Creatinine 2.15 H (0.66-1.25) mg/dL Est GFR (CKD-EPI)AfAm 32 (>60 ml/min/1.73 sqM) Est GFR (CKD-EPI)NonAf 27 (>60 ml/min/1.73 sqM) Glucose 286 H (74-99) mg/dL Plasma Lactic Acid Trevor 1.3 (0.7-2.0) mmol/L Calcium 8.7 (8.4-10.2) mg/dL Magnesium 2.5 H (1.6-2.3) mg/dL Total Bilirubin 0.8 (0.2-1.3) mg/dL AST 48 (17-59) U/L ALT 36 (4-49) U/L Alkaline Phosphatase 116 (38-126) U/L Ammonia <9 (<30) umol/L Creatine Kinase 73 (55-170) U/L Troponin I (0.000-0.034) ng/mL Total Protein 7.0 (6.3-8.2) g/dL Albumin 3.6 (3.5-5.0) g/dL 05/17/21 05/17/21 Range/Units 17:07 17:07 WBC (3.8-10.6) k/uL RBC (4.30-5.90) m/uL Hgb (13.0-17.5) gm/dL Hct (39.0-53.0) % MCV (80.0-100.0) fL MCH (25.0-35.0) pg MCHC (31.0-37.0) g/dL RDW (11.5-15.5) % Plt Count (150-450) k/uL MPV Neutrophils % % Lymphocytes % % Monocytes % % Eosinophils % % Basophils % % Neutrophils # (1.3-7.7) k/uL Lymphocytes # (1.0-4.8) k/uL Monocytes # (0-1.0) k/uL Eosinophils # (0-0.7) k/uL Basophils # (0-0.2) k/uL D-Dimer 1.30 H (<0.60) mg/L FEU Sodium (137-145) mmol/L Potassium (3.5-5.1) mmol/L Chloride (98-107) mmol/L Carbon Dioxide (22-30) mmol/L Anion Gap mmol/L BUN (9-20) mg/dL Creatinine (0.66-1.25) mg/dL Est GFR (CKD-EPI)AfAm (>60 ml/min/1.73 sqM) Est GFR (CKD-EPI)NonAf (>60 ml/min/1.73 sqM) Glucose (74-99) mg/dL Plasma Lactic Acid Trevor (0.7-2.0) mmol/L Calcium (8.4-10.2) mg/dL Magnesium (1.6-2.3) mg/dL Total Bilirubin (0.2-1.3) mg/dL AST (17-59) U/L ALT (4-49) U/L Alkaline Phosphatase (38-126) U/L Ammonia (<30) umol/L Creatine Kinase (55-170) U/L Troponin I 0.035 H* (0.000-0.034) ng/mL Total Protein (6.3-8.2) g/dL Albumin (3.5-5.0) g/dL - EKG Data -: EKG Interpreted by Sc EKG Comments: Sinus rhythm 88 appear of QRS duration 1 4070 QT since QTC 393/439 possible left atrial enlargement rate exodeviation right bundle-branch block pattern - Radiology Data Radiology results: report reviewed (Image reviewed no acute findings), image reviewed Disposition Clinical Impression: Dehydration, Febrile illness, acute, Suspected UTI, Acute kidney injury, Failure to thrive in adult Disposition: ADMITTED IP TO THIS [facility] Condition: Fair Referrals: Fred Duff DO [Primary Care Provider] - 1-2 days
[2021-05-17 17:21] LABS: Basophils # (A) 0.1 k/uL (0-0.2); Basophils % (A) 1 %; Eosinophils % (A) 0 %; HCT 38.3 % (39.0-53.0); HGB 12.7 gm/dL (13.0-17.5); Lymphocytes % (A) 14 %; MCH 27.9 pg (25.0-35.0); MCHC 33.1 g/dL (31.0-37.0); MCV 84.1 fL (80.0-100.0); Mean Platelet Volume 7.9; Monocytes # (A) 0.5 k/uL (0-1.0); Monocytes % (A) 7 %; Neutrophils # (A) 5.3 k/uL (1.3-7.7); Neutrophils % (A) 77 %; Platelet Count 194 k/uL (150-450); RBC 4.55 m/uL (4.30-5.90); RDW 13.9 % (11.5-15.5); WBC 6.9 k/uL (3.8-10.6)
[2021-05-17] MEDS ORDERED: ACETAMINOPHEN TAB 325 MG TAB PO STA (17:22)
[2021-05-17 17:32] LABS: Albumin 3.6 g/dL (3.5-5.0); Calcium 8.7 mg/dL (8.4-10.2); Magnesium 2.5 mg/dL (1.6-2.3); Potassium 5.1 mmol/L (3.5-5.1); Total Bilirubin 0.8 mg/dL (0.2-1.3)
[2021-05-17 17:34] LABS: Lactic Acid, Venous 1.3 mmol/L (0.7-2.0)
--- NOTE | 2021-05-17 18:20 | XR ---
EXAMINATION TYPE: XR chest 2V DATE OF EXAM: 05/17/2021 COMPARISON: 05/14/2021 HISTORY: Weakness TECHNIQUE: 2 views FINDINGS: There is no heart failure nor confluent pneumonic infiltrate. There are sternal wires. Cost ophrenic angles are clear. There are chest leads. There is some coarsening of the interstitial markin gs. IMPRESSION: Mild pulmonary fibrotic changes. No obvious heart failure. No significant change.
--- NOTE | 2021-05-17 18:30 | CT ---
EXAMINATION TYPE: CT brain wo con DATE OF EXAM: 05/17/2021 COMPARISON: 07/20/2016 HISTORY: ams, confusion, +covid CT DLP: 1133.4 mGycm Automated exposure control for dose reduction was used. There is some cerebral cortical atrophy. There is no mass effect nor midline shift. There is enlargem ent of the ventricles. There is hypodensity in the left medial occipital lobe related to old infarct. The calvarium is intact. The skull base is intact. There is normal aeration of the mastoid sinuses. IMPRESSION: Cerebral atrophy and chronic small vessel ischemia. 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 No sign ificant change compared to old exam.
[2021-05-17] MEDS ORDERED: cefTRIAXone IN SWFI 1,000 MG/10 ML SYRINGE IVP STA (19:07)
[2021-05-17] MEDS ORDERED: NALOXONE 0.4 MG/ML 1 ML VIAL IV PRN (19:08)
[2021-05-17] MEDS ORDERED: ACETAMINOPHEN TAB 325 MG TAB PO PRN (19:08)
[2021-05-17 21:10] LABS: Appearance,Urine Clear (Clear); Bilirubin,Urine Negative (Negative); Blood,Urine Negative (Negative); Color,Urine Light Yellow; Glucose,Urine (UA) Trace (Negative); Ketones,Urine Negative (Negative); Leukocyte Esterase,Urine Negative (Negative); Nitrite,Urine Negative (Negative); PH, Urine 5.5 (5.0-8.0); Protein,Urine Trace (Negative); Specific Gravity,Urine 1.011 (1.001-1.035); Urobilinogen,Urine <2.0 mg/dL (<2.0)
[2021-05-17] MEDS: carvediloL 6.25 MG TAB PO SCH ×2 (23:00→23:15)
[2021-05-17] MEDS: ATORVASTATIN 40 MG TAB PO SCH (23:15)
[2021-05-17] MEDS: INSULN ASP PRT/INSULIN ASPART 100 UNIT/ML 10 ML VIAL SQ SCH (23:51)
[2021-05-17] MEDS: SODIUM CHLORIDE 0.9% 1,000 ML IV SCH (23:52)
[2021-05-18] MEDS: amLODIPine 10 MG TAB PO SCH (08:04)
[2021-05-18] MEDS: CLOPIDOGREL 75 MG TAB PO SCH (08:04)
[2021-05-18] MEDS: SODIUM CHLORIDE 0.9% 1,000 ML IV SCH ×3 (08:04→20:52)
[2021-05-18] MEDS: LEVOTHYROXINE 50 MCG TAB PO SCH (08:04)
[2021-05-18] MEDS: carvediloL 6.25 MG TAB PO SCH ×2 (08:05→17:43)
[2021-05-18] MEDS: ISOSORBIDE MONONITRATE ER 30 MG TAB.ER.24H PO SCH (08:05)
[2021-05-18 08:25] LABS: Glucose,Whole Blood 241 mg/dL (75-99)
[2021-05-18] MEDS ORDERED: lisinopriL 5 MG TAB PO SCH (09:00)
[2021-05-18] MEDS ORDERED: FUROSEMIDE 40 MG TAB PO SCH (09:00)
[2021-05-18] MEDS: INSULN ASP PRT/INSULIN ASPART 100 UNIT/ML 10 ML VIAL SQ SCH ×2 (10:12→20:52)
[2021-05-18] MEDS ORDERED: ACETAMINOPHEN TAB 325 MG TAB PO PRN (12:23)
--- NOTE | 2021-05-18 12:56 | P.HPIM ---
History of Present Illness H&P Date: 05/18/21 Chief Complaint: Increasing weakness, status post fall This is an 85-year-old gentleman with past medical history of recent covid, recent uti,CAD,AK, CABG, CVA, chronic urinary retention with self- catheterization , recurrent UTIs -history of Klebsiella, chronic kidney disease stage IV, chronic anemia diabetes mellitus, chronic neuropathy in hands and feet, hypertension, hyperlipidemia, peripheral vascular disease and multiple other medical issues presented to the ER via EMS secondary to increasing generalized weakness, status post fall and could not get up off the floor. Patient has O2 at home and has been refusing to wear O2, 88% on room air upon paramedics arrival. T-max 101.5, WBC within normal limits. Denies nausea vomiting or diarrhea. EKG sinus with right bundle branch block. Troponin 0.035, decreased from prior admission. Denies chest pain, palpitations. Hemoglobin 12.7, platelets 194. D-dimer 1.3 (recent Covid). Sodium 136, potassium 5.1, bicarb 20, BUN 95, creatinine 2.15, hyperglycemic with blood sugars mid 200s to 280s, lactic acid 1.3, phosphorus 5.6,, magnesium 2.5, creatinine kinase 73. UA reported trace glucose, trace protein and negative for nitrate, negative leukocytes. Past Medical History Past Medical History: Coronary Artery Disease (CAD), Chest Pain / Angina, CVA/TIA, Diabetes Mellitus, Hypertension, Myocardial Infarction (AK), Renal Disease, Vascular Disorder Additional Past Medical History / Comment(s): Pt recently admitted to [facility] on 05/14/21 with generalized weakness/UTI/Klebsiella/abnormal potassium levels. Other hx: Urinary retention requiring self-catheterization, pt thinks possible from effects from stroke as well as L arm/leg weakness, IDDM type II, bilateral neuropathy of hands and feet, PVD, AK - 04/09/16, diabetic nephropathy CKD stage III/IV, normocytic anemia, UTIs Last Myocardial Infarction Date:: 2016 History of Any Multi-Drug Resistant Organisms: None Reported Past Surgical History: Coronary Bypass/CABG, Heart Catheterization, Heart Catheterization With Stent Additional Past Surgical History / Comment(s): 5 VESSEL BYPASS 2006, stent RT leg , arthrectomy/stent March 2016, bilateral cataract removal with lens implants Past Anesthesia/Blood Transfusion Reactions: No Reported Reaction Date of Last Stent Placement:: 2017 Smoking Status: Former smoker - Past Family History Brother(s) Family Medical History: Myocardial Infarction (AK) Mother Family Medical History: Diabetes Mellitus Additional Family Medical History / Comment(s): AT AGE 93 Father Family Medical History: Myocardial Infarction (AK) Additional Family Medical History / Comment(s): AT AGE 83 FROM AK. Medications and Allergies Home Medications Medication Instructions Recorded Confirmed Type Clopidogrel [Plavix] 75 mg PO DAILY #30 tab 11/20/15 05/17/21 Rx Isosorbide Mononitrate ER [Imdur] 30 mg PO DAILY #30 tab.er.24h 11/20/15 05/17/21 Rx Furosemide [Lasix] 40 mg PO DAILY 04/10/16 05/17/21 History amLODIPine [Norvasc] 10 mg PO DAILY #30 tab 04/17/16 05/17/21 Rx Atorvastatin [Lipitor] 40 mg PO HS 05/09/21 05/17/21 History Insulin Aspart Protam & Aspart 10 unit SQ DAILY 05/09/21 05/17/21 History [NovoLOG MIX 70-30 Flexpen] Insulin Aspart Protam & Aspart 12 unit SQ HS 05/09/21 05/17/21 History [NovoLOG MIX 70-30 Flexpen] Insulin Aspart Protam & Aspart See Protocol SQ HS 05/09/21 05/17/21 History [NovoLOG MIX 70-30 Flexpen] Levothyroxine Sodium [Synthroid] 50 mcg PO AC-BRKFST 05/09/21 05/17/21 History carvediloL [Coreg] 6.25 mg PO BID-W/MEALS 05/09/21 05/17/21 History Acetaminophen Tab [Tylenol] 650 mg PO Q6HR PRN tab 05/11/21 05/17/21 Rx lisinopriL [Zestril] 5 mg PO DAILY 05/14/21 05/17/21 History Allergies Allergy/AdvReac Type Severity Reaction Status Date / Time Iodinated Contrast Media AdvReac Rash/Hives Verified 05/17/21 21:09 Physical Exam Vitals: Vital Signs Temp Pulse Resp BP Pulse Ox 05/18/21 09:02 98.8 F 76 16 125/67 96 05/18/21 06:00 79 18 123/80 98 05/18/21 05:09 60 16 117/60 99 05/18/21 04:00 78 20 138/98 97 05/17/21 22:33 72 16 147/90 96 05/17/21 21:33 99.3 F 72 16 139/90 96 05/17/21 20:33 75 18 128/51 95 05/17/21 18:33 74 16 134/117 96 05/17/21 16:27 101.5 F H 86 20 97 Intake and Output 05/17/21 05/18/21 05/18/21 22:59 06:59 14:59 Output Total 700 800 Balance -700 -800 Output: Urine 700 800 Other: # Voids 1 Weight 70.307 kg 70.307 kg PHYSICAL EXAM: VITAL SIGNS: As above GENERAL: Sitting up in bed, no acute distress HEENT: Conjunctivae normal. eyes normal. Oral mucosa moist NECK: No JVD. No thyroid enlargement. No LNs CARDIOVASCULAR: S1, S2 regular. Systolic murmur RESPIRATION: Breath sounds diminished in the bases. No rhonchi or crackles. No bronchial breathing. ABDOMEN: Soft, nontender.No guarding. no masses palpable. No rebound, r igidity, guarding .Bowel sounds heard. LEGS: No edema. no swelling. Diminished pulses. PSYCHIATRY: Alert and oriented X3, mood and affect normal. NERVOUS SYSTEM: Cranial N 2-12 grossly normal. Moves all 4 limbs. Diffuse weakness, No focal deficits. Strength and sensation grossly intact.. Skin: Warm and dry, no rash Results CBC & Chem 7: 05/17/21 17:07 05/17/21 17:07 Labs: Abnormal Lab Results - Last 24 Hours (Table) 05/17/21 05/17/21 05/17/21 Range/Units 17:07 17:07 17:07 Hgb 12.7 L (13.0-17.5) gm/dL Hct 38.3 L (39.0-53.0) % D-Dimer (<0.60) mg/L FEU Sodium 136 L (137-145) mmol/L Carbon Dioxide 20 L (22-30) mmol/L BUN 95 H (9-20) mg/dL Creatinine 2.15 H (0.66-1.25) mg/dL Glucose 286 H (74-99) mg/dL POC Glucose (mg/dL) (75-99) mg/dL Magnesium 2.5 H (1.6-2.3) mg/dL Troponin I 0.035 H* (0.000-0.034) ng/mL Urine Protein (Negative) Urine Glucose (UA) (Negative) 05/17/21 05/17/21 05/18/21 Range/Units 17:07 20:40 08:21 Hgb (13.0-17.5) gm/dL Hct (39.0-53.0) % D-Dimer 1.30 H (<0.60) mg/L FEU Sodium (137-145) mmol/L Carbon Dioxide (22-30) mmol/L BUN (9-20) mg/dL Creatinine (0.66-1.25) mg/dL Glucose (74-99) mg/dL POC Glucose (mg/dL) 241 H (75-99) mg/dL Magnesium (1.6-2.3) mg/dL Troponin I (0.000-0.034) ng/mL Urine Protein Trace H (Negative) Urine Glucose (UA) Trace H (Negative) Thrombosis Risk Factor Assmnt - Choose All That Apply Any of the Below Risk Factors Present?: Yes Other Risk Factors: Yes Each Risk Factor Represents 3 Points: Age 75 years or older Other congenital or acquired thrombophilia - If yes, enter type in comment: No Thrombosis Risk Factor Assessment Total Risk Factor Score: 3 Thrombosis Risk Factor Assessment Level: Moderate Risk Assessment and Plan Assessment: Increasing generalized weakness, status post fall,slip with inability to regain standing back up independently. Possible Recurrent acute UTI, cultures pending, in a patient with chronic urinary retention,self caths 5 times a day Recent UTI with Klebsiella pneumonia in a patient with history of urinary retention Chronic hypoxic respiratory failure, ER report states patient refusing to wear O2 at home, 88% on room air per paramedics. Dehydration Acute on Chronic kidney disease, stage IV, baseline 1.5 Abnormal troponin, secondary to the above, decreased from recent admission Hyponatremia Recent COVID-19 infection CAD with history of [place], CABG Hypertension Diabetes mellitus II Diabetic neuropathy History of CVA Diabetic neuropathy and nephropathy Plan: Continue on current medication regime ,monitoring and symptomatic treatment. VQ, D-dimer more elevated than on prior admission( recent Covid).Urine and blood cultures ordered. Alves catheter ordered. IV fluids, antibiotics. GI prophylaxis with PPI. PT/OT consulted for potential subacute rehab at discharge. Social work consulted, spouse has parkinson's disease. Prognosis guarded given multiple complex medical issues. The impression and plan of care has been dictated as directed. : I performed a history and examination of this patient, discussed the same with the dictator. I agree with the dictator's note ,documented as a scribe. Any additional findings or plans will be noted.
[2021-05-18] MEDS: PANTOPRAZOLE 40 MG/10 ML VIAL IVP SCH (13:27)
[2021-05-18] MEDS: traMADol 50 MG TAB PO PRN ×2 (13:28→23:56)
[2021-05-18] MEDS: ENOXAPARIN 40 MG/0.4 ML SYRINGE SQ SCH (14:38)
--- NOTE | 2021-05-18 14:48 | NM ---
EXAMINATION TYPE: NM pul perfusion DATE OF EXAM: 05/18/2021 COMPARISON: Chest x-ray dated 05/17/2021 HISTORY: Elevated d-dimer and cough Following administration of 5.2 mCi Tc 99m MAA. Images obtained post injection. FINDINGS: There is decreased uptake at the apical segment of the right upper lobe. Subsegmental small defects a re noted in the left upper lobe noted on the posterior image. IMPRESSION: Nondiagnostic for pulmonary embolus
--- NOTE | 2021-05-18 15:30 | US ---
EXAMINATION TYPE: US venous doppler duplex LE BI DATE OF EXAM: 05/18/2021 3:21 PM COMPARISON: Recent ultrasound 10 days ago CLINICAL HISTORY: bilateral leg pain. pain SIDE PERFORMED: Bilateral TECHNIQUE: The lower extremity deep venous system is examined utilizing real time linear array sonog janie with graded compression, doppler sonography and color-flow sonography. VESSELS IMAGED: Common Femoral Vein Deep Femoral Vein Greater Saphenous Vein * Femoral Vein Popliteal Vein Small Saphenous Vein * Proximal Calf Veins (* superficial vessels) Right Leg: Negative for DVT Left Leg: Negative for DVT Grayscale, color doppler, spectral doppler imaging performed of the deep veins of the bilateral lower extremities. There is normal flow, compressibility, vascular waveforms. IMPRESSION: No acute DVT in either lower extremity. No significant change from prior.
[2021-05-18 17:48] LABS: Glucose,Whole Blood 174 mg/dL (75-99)
[2021-05-18 20:35] LABS: Glucose,Whole Blood 162 mg/dL (75-99)
[2021-05-18] MEDS: ATORVASTATIN 40 MG TAB PO SCH (20:52)
[2021-05-19] MEDS: SODIUM CHLORIDE 0.9% 1,000 ML IV SCH ×3 (04:26→13:03)
[2021-05-19 06:20] LABS: Glucose,Whole Blood 136 mg/dL (75-99)
[2021-05-19] MEDS: LEVOTHYROXINE 50 MCG TAB PO SCH (06:27)
[2021-05-19] MEDS: carvediloL 6.25 MG TAB PO SCH ×2 (06:27→16:13)
[2021-05-19 07:23] LABS: Basophils # (A) 0.1 k/uL (0-0.2); Basophils % (A) 1 %; Eosinophils % (A) 1 %; HCT 37.6 % (39.0-53.0); HGB 11.7 gm/dL (13.0-17.5); Hypochromasia Slight; Lymphocytes # (A) 1.2 k/uL (1.0-4.8); Lymphocytes % (A) 26 %; MCH 27.2 pg (25.0-35.0); MCHC 31.1 g/dL (31.0-37.0); MCV 87.3 fL (80.0-100.0); Mean Platelet Volume 7.6; Monocytes # (A) 0.3 k/uL (0-1.0); Monocytes % (A) 6 %; Neutrophils # (A) 2.9 k/uL (1.3-7.7); Neutrophils % (A) 65 %; Platelet Count 170 k/uL (150-450); RBC 4.31 m/uL (4.30-5.90); RDW 14.3 % (11.5-15.5); WBC 4.5 k/uL (3.8-10.6)
[2021-05-19 07:40] LABS: Calcium 8.3 mg/dL (8.4-10.2); Potassium 5.4 mmol/L (3.5-5.1)
[2021-05-19] MEDS: INSULN ASP PRT/INSULIN ASPART 100 UNIT/ML 10 ML VIAL SQ SCH ×2 (09:20→20:59)
[2021-05-19] MEDS: PANTOPRAZOLE 40 MG/10 ML VIAL IVP SCH (09:20)
[2021-05-19] MEDS: ENOXAPARIN 40 MG/0.4 ML SYRINGE SQ SCH (09:20)
[2021-05-19] MEDS: amLODIPine 10 MG TAB PO SCH (09:21)
[2021-05-19] MEDS: CLOPIDOGREL 75 MG TAB PO SCH (09:21)
[2021-05-19] MEDS: ISOSORBIDE MONONITRATE ER 30 MG TAB.ER.24H PO SCH (09:21)
[2021-05-19 12:06] LABS: Glucose,Whole Blood 185 mg/dL (75-99)
[2021-05-19 15:17] VITALS: BMI 24.3
[2021-05-19 17:16] LABS: Glucose,Whole Blood 172 mg/dL (75-99)
--- NOTE | 2021-05-19 17:24 | P.PN ---
Subjective Progress Note Date: 05/19/21 This is an 85-year-old gentleman with past medical history of recent covid, recent uti,CAD,[place], CABG, CVA, chronic urinary retention with self- catheterization , recurrent UTIs -history of Klebsiella, chronic kidney disease stage IV, chronic anemia diabetes mellitus, chronic neuropathy in hands and feet, hypertension, hyperlipidemia, peripheral vascular disease and multiple other medical issues presented to the ER via EMS secondary to increasing generalized weakness, status post fall and could not get up off the floor. Patient has O2 at home and has been refusing to wear O2, 88% on room air upon paramedics arrival. T-max 101.5, WBC within normal limits. Denies nausea vomiting or diarrhea. EKG sinus with right bundle branch block. Troponin 0.035, decreased from prior admission. Denies chest pain, palpitations. Hemoglobin 12.7, platelets 194. D-dimer 1.3 (recent Covid). Sodium 136, potassium 5.1, bicarb 20, BUN 95, creatinine 2.15, hyperglycemic with blood sugars mid 200s to 280s, lactic acid 1.3, phosphorus 5.6,, magnesium 2.5, creatinine kinase 73. UA reported trace glucose, trace protein and negative for nitrate, negative leukocytes. 05-19-21 reports interrupted sleep, tired. Denies nausea vomiting or diarrhea. Denies abdominal pain. Denies chest pain, palpitations or shortness of breath. Afebrile normal WBC. Continues on IV fluid hydration with sodium normalized, renal function improving, new baseline. Blood sugars controlled. VQ reported nondiagnostic for pulmonary embolism, Doppler bilateral lower extremities reported negative for DVT. Covid PCR positive. Maintaining O2 sats in the low 90s on room air. Objective - Vital Signs Vital signs: Vital Signs Temp 97.8 F 05/18/21 23:41 Pulse 71 05/19/21 16:00 Resp 16 05/19/21 16:00 BP 160/94 05/19/21 12:00 Pulse Ox 91 L 05/19/21 16:00 Intake & Output 05/18/21 05/19/21 05/19/21 18:59 06:59 18:59 Output Total 1600 800 600 Balance -1600 -800 -600 Weight 70.307 kg 70.307 kg Output: Urine 1600 800 600 Uretheral (Alves) 800 Other: Voiding Method Indwelling Catheter Indwelling Catheter - Exam PHYSICAL EXAM: VITAL SIGNS: As above GENERAL: Sitting up in bed, tired, arousable ,no acute distress HEENT: Conjunctivae normal. eyes normal. Oral mucosa moist NECK: No JVD. No thyroid enlargement. No LNs CARDIOVASCULAR: S1, S2 regular. Systolic murmur RESPIRATION: Breath sounds diminished in the bases. No rhonchi or crackles. ABDOMEN: Soft, nontender.No guarding. no masses palpable. No rebound, rigidity, guarding .Bowel sounds heard. LEGS: No edema. no swelling. Diminished pulses. PSYCHIATRY: Alert and oriented X2, mood and affect normal. NERVOUS SYSTEM: Cranial N 2-12 grossly normal. Moves all 4 limbs. Diffuse weakness, No focal deficits. Strength and sensation grossly intact.. Skin: Warm and dry, no rash - Labs CBC & Chem 7: 05/19/21 06:53 05/19/21 06:53 Labs: Abnormal Lab Results - Last 24 Hours (Table) 05/18/21 05/18/21 05/19/21 Range/Units 17:47 20:33 04:30 Hgb (13.0-17.5) gm/dL Hct (39.0-53.0) % Potassium (3.5-5.1) mmol/L Chloride (98-107) mmol/L BUN (9-20) mg/dL Creatinine (0.66-1.25) mg/dL Glucose (74-99) mg/dL POC Glucose (mg/dL) 174 H 162 H (75-99) mg/dL Calcium (8.4-10.2) mg/dL Coronavirus (PCR) Detected A (Not Detectd) 05/19/21 05/19/21 05/19/21 Range/Units 06:18 06:53 06:53 Hgb 11.7 L (13.0-17.5) gm/dL Hct 37.6 L (39.0-53.0) % Potassium 5.4 H (3.5-5.1) mmol/L Chloride 114 H (98-107) mmol/L BUN 59 H (9-20) mg/dL Creatinine 1.41 H (0.66-1.25) mg/dL Glucose 133 H (74-99) mg/dL POC Glucose (mg/dL) 136 H (75-99) mg/dL Calcium 8.3 L (8.4-10.2) mg/dL Coronavirus (PCR) (Not Detectd) 05/19/21 Range/Units 11:35 Hgb (13.0-17.5) gm/dL Hct (39.0-53.0) % Potassium (3.5-5.1) mmol/L Chloride (98-107) mmol/L BUN (9-20) mg/dL Creatinine (0.66-1.25) mg/dL Glucose (74-99) mg/dL POC Glucose (mg/dL) 185 H (75-99) mg/dL Calcium (8.4-10.2) mg/dL Coronavirus (PCR) (Not Detectd) Microbiology - Last 24 Hours (Table) 05/17/21 17:07 Blood Culture - Preliminary Blood No Growth after 24 hours Assessment and Plan Assessment: Acute Covid 19 infection, in a patient with recent Covid initially detected on 05/08/21. Increasing generalized weakness, status post fall,slip with inability to regain standing back up independently. Possible Recurrent acute UTI, cultures pending, in a patient with chronic urinary retention,self caths 5 times a day Recent UTI with Klebsiella pneumonia in a patient with history of urinary retention Chronic hypoxic respiratory failure, ER report states patient refusing to wear O2 at home, 88% on room air per paramedics. Dehydration Acute on Chronic kidney disease, stage IV, baseline 1.5 Abnormal troponin, secondary to the above, decreased from recent admission Hyponatremia CAD with history of [place], CABG Hypertension Diabetes mellitus II Diabetic neuropathy History of CVA Diabetic neuropathy and nephropathy Plan: Continue on current medication regime ,monitoring and symptomatic treatment. COVID PCR positive, Inflammatory markers added on, pulmonary consulted. Urine and blood cultures pending. IV fluids decreased, empiric antibiotics. PT recommending subacute rehab at discharge. Prognosis guarded given multiple complex medical issues. The impression and plan of care has been dictated as directed. : I performed a history and examination of this patient, discussed the same with the dictator. I agree with the dictator's note ,documented as a scribe. Any additional findings or plans will be noted.
[2021-05-19] MEDS: DEXAMETHASONE SOD PHOSPHATE 10 MG/ML 1 ML VIAL IVP SCH (18:05)
[2021-05-19] MEDS: CHOLECALCIFEROL 25 MCG (1000 IU) TABLET PO SCH (18:06)
[2021-05-19] MEDS: traMADol 50 MG TAB PO PRN (18:08)
[2021-05-19] MEDS: ZINC SULFATE 220 MG CAP PO SCH (18:09)
[2021-05-19 20:55] LABS: Glucose,Whole Blood 226 mg/dL (75-99)
[2021-05-19] MEDS: ATORVASTATIN 40 MG TAB PO SCH (20:58)
[2021-05-19] MEDS: ASCORBIC ACID 500 MG TAB PO SCH (20:58)
[2021-05-20 06:02] LABS: Glucose,Whole Blood 204 mg/dL (75-99)
[2021-05-20] MEDS: carvediloL 6.25 MG TAB PO SCH ×2 (06:35→16:59)
[2021-05-20] MEDS: LEVOTHYROXINE 50 MCG TAB PO SCH (06:35)
[2021-05-20] MEDS: CHOLECALCIFEROL 25 MCG (1000 IU) TABLET PO SCH (09:16)
[2021-05-20] MEDS: CLOPIDOGREL 75 MG TAB PO SCH (09:16)
[2021-05-20] MEDS: ISOSORBIDE MONONITRATE ER 30 MG TAB.ER.24H PO SCH (09:16)
[2021-05-20] MEDS: ASCORBIC ACID 500 MG TAB PO SCH ×2 (09:16→20:55)
[2021-05-20] MEDS: PANTOPRAZOLE 40 MG/10 ML VIAL IVP SCH (09:16)
[2021-05-20] MEDS: DEXAMETHASONE SOD PHOSPHATE 10 MG/ML 1 ML VIAL IVP SCH (09:16)
[2021-05-20] MEDS: ZINC SULFATE 220 MG CAP PO SCH (09:16)
[2021-05-20] MEDS: amLODIPine 10 MG TAB PO SCH (09:16)
[2021-05-20] MEDS: INSULN ASP PRT/INSULIN ASPART 100 UNIT/ML 10 ML VIAL SQ SCH ×2 (09:17→12:18)
[2021-05-20] MEDS: ENOXAPARIN 40 MG/0.4 ML SYRINGE SQ SCH (09:17)
[2021-05-20] MEDS: traMADol 50 MG TAB PO PRN ×2 (09:29→20:55)
[2021-05-20 11:28] LABS: Glucose,Whole Blood 398 mg/dL (75-99)
--- NOTE | 2021-05-20 12:39 | P.CNPUL ---
<Rachel,Maribel - Last Filed: 05/20/21 12:27> History of Present Illness Consult date: 05/20/21 Requesting physician: Fred Duff Reason for consult: dyspnea, abnormal CXR/CT Chief complaint: Generalized weakness, falls History of present illness: This is an 85-year-old male patient who follows with Dr. Duff as his primary care physician. He has a history of coronary disease, angina, CVA, diabetes, hypertension, myocardial infarction, urinary retention, neuropathy, stage III chronic kidney disease, and anemia. The patient has also had bypass grafting, and heart catheterization with stents. He's had frequent admissions to the hospital recently for dehydration, weakness, and had tested positive for COVID- 19. He was initially positive on 05/08/2019. He performs self catheterizations and frequent UTI secondary to Klebsiella pneumoniae, Chest x-ray reveals some mild pulmonary fibrotic changes. No significant change compared to previous on 05/14/2021. Computed tomography scan of the brain revealed cerebral peripheral atrophy and chronic small vessel ischemia. 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 No acute abnormalities. VQ scan room was nondiagnostic for pulmonary embolus. Dopplers of the lower extremities are negative for DVT. White count 4.5. Hemoglobin 11.7. Platelets 170,000. D-dimer 0.72. Sodium 143. Potassium 5.4. BUN 59. Creatinine 1.41. Glucose 133. Ferritin 604. LDH 393. C-reactive protein 5.1. Crohn advised by PCR positive. He is seen today in consultation on the selective care unit. He is currently resting flat in bed. Awake and alert in no acute distress. Denies any worsening shortness of breath, cough or congestion. He is maintaining O2 saturations in the mid to upper 90s on 2 L/m per nasal cannula. His been afebrile. Hemodynamically stable. He's been initiated on ceftriaxone, Decadron, Lovenox, vitamin supplements. Review of Systems REVIEW OF SYSTEMS: CONSTITUTIONAL: Denies weakness with falls. Denies any recent significant weight loss or weight gain. EYES: Denies change in vision. EARS, NOSE, MOUTH, THROAT: Denies headaches, denies sore throat. CARDIOVASCULAR: Denies chest pain, palpitations or syncopal episodes. RESPIRATORY: Denies shortness of breath, cough, congestion or hemoptysis. GASTROINTESTINAL: Denies change in appetite, denies abdominal pain GENITOURINARY: Denies hematuria, denies infections. MUSKULOSKELETAL: Denies pain, denies swelling. INTEGUMENTARY: Denies rash, denies eczema. NEUROLOGICAL: Denies recent memory loss, no recent seizure activity. PSYCHIATRIC: Denies anxiety, denies depression. HEMATOLOGIC/LYMPHATIC: Denies anemia, denies enlarged lymph nodes. Past Medical History Past Medical History: Coronary Artery Disease (CAD), Chest Pain / Angina, CVA/TIA, Diabetes Mellitus, Hypertension, Myocardial Infarction (MT), Renal Disease, Vascular Disorder Additional Past Medical History / Comment(s): Pt recently admitted to [facility] on 05/14/21 with generalized weakness/UTI/Klebsiella/abnormal potassium levels. Other hx: Urinary retention requiring self-catheterization, pt thinks possible from effects from stroke as well as L arm/leg weakness, IDDM type II, bilateral neuropathy of hands and feet, PVD, MT - 04/09/16, diabetic nephropathy CKD stage III/IV, normocytic anemia, UTIs Last Myocardial Infarction Date:: 2016 History of Any Multi-Drug Resistant Organisms: None Reported Past Surgical History: Coronary Bypass/CABG, Heart Catheterization, Heart Catheterization With Stent Additional Past Surgical History / Comment(s): 5 VESSEL BYPASS 2006, stent RT leg , arthrectomy/stent March 2016, bilateral cataract removal with lens implants Past Anesthesia/Blood Transfusion Reactions: No Reported Reaction Date of Last Stent Placement:: 2016 Smoking Status: Former smoker - Past Family History Brother(s) Family Medical History: Myocardial Infarction (MT) Mother Family Medical History: Diabetes Mellitus Additional Family Medical History / Comment(s): AT AGE 93 Father Family Medical History: Myocardial Infarction (MT) Additional Family Medical History / Comment(s): AT AGE 83 FROM MT. Medications and Allergies Home Medications Medication Instructions Recorded Confirmed Type Clopidogrel [Plavix] 75 mg PO DAILY #30 tab 11/20/15 05/17/21 Rx Isosorbide Mononitrate ER [Imdur] 30 mg PO DAILY #30 tab.er.24h 11/20/15 05/17/21 Rx Furosemide [Lasix] 40 mg PO DAILY 04/10/16 05/17/21 History amLODIPine [Norvasc] 10 mg PO DAILY #30 tab 04/17/16 05/17/21 Rx Atorvastatin [Lipitor] 40 mg PO HS 05/09/21 05/17/21 History Insulin Aspart Protam & Aspart 10 unit SQ DAILY 05/09/21 05/17/21 History [NovoLOG MIX 70-30 Flexpen] Insulin Aspart Protam & Aspart 12 unit SQ HS 05/09/21 05/17/21 History [NovoLOG MIX 70-30 Flexpen] Insulin Aspart Protam & Aspart See Protocol SQ HS 05/09/21 05/17/21 History [NovoLOG MIX 70-30 Flexpen] Levothyroxine Sodium [Synthroid] 50 mcg PO AC-BRKFST 05/09/21 05/17/21 History carvediloL [Coreg] 6.25 mg PO BID-W/MEALS 05/09/21 05/17/21 History Acetaminophen Tab [Tylenol] 650 mg PO Q6HR PRN tab 05/11/21 05/17/21 Rx lisinopriL [Zestril] 5 mg PO DAILY 05/14/21 05/17/21 History Allergies Allergy/AdvReac Type Severity Reaction Status Date / Time Iodinated Contrast Media AdvReac Rash/Hives Verified 05/17/21 21:09 Physical Exam Vitals: Vital Signs Temp Pulse Resp BP Pulse Ox 05/20/21 12:00 97.3 F L 73 16 166/88 97 05/20/21 08:00 76 16 140/66 96 05/20/21 06:37 160/74 05/20/21 03:35 78 16 144/64 90 L 05/20/21 02:00 16 05/19/21 23:10 71 16 135/60 91 L 05/19/21 20:00 97.9 F 70 16 151/67 91 L 05/19/21 16:00 71 16 91 L Intake and Output 05/19/21 05/20/21 05/20/21 22:59 06:59 14:59 Intake Total 368 480 120 Output Total 600 600 Balance -232 -120 120 Intake: Intake, IV Titration 50 Amount Sodium Chloride 0.9% 1, 50 000 ml @ 50 mls/hr IV . Q20H [facility] Rx#:[id number] Oral 318 480 120 Output: Urine 600 600 Other: Voiding Method Indwelling Catheter Indwelling Catheter Indwelling Catheter Weight 70.307 kg GENERAL EXAM: Alert, frail, on 85-year-old gentleman, on 2 L nasal cannula, comfortable in no apparent distress. HEAD: Normocephalic. EYES: Normal reaction of pupils, equal size. NOSE: Clear with pink turbinates. THROAT: No erythema or exudates. NECK: No masses, no JVD. CHEST: No chest wall deformity. LUNGS: Equal air entry with faint crackles in the posterior base. CVS: S1 and S2 normal with no audible murmur, regular rhythm. ABDOMEN: No hepatosplenomegaly, normal bowel sounds, no guarding or rigidity. SPINE: No scoliosis or deformity SKIN: No rashes CENTRAL NERVOUS SYSTEM: No focal deficits, tone is normal in all 4 extremities. EXTREMITIES: There is no peripheral edema. No clubbing, no cyanosis. Peripheral pulses are intact. Results - Laboratory Findings CBC and BMP: 05/19/21 06:53 05/19/21 06:53 PT/INR, D-dimer D-Dimer 0.72 mg/L FEU (<0.60) H 05/19/21 17:24 Abnormal lab findings: Abnormal Labs 05/17/21 05/17/21 05/17/21 17:07 17:07 17:07 Hgb 12.7 L Hct 38.3 L D-Dimer Sodium 136 L Potassium Chloride Carbon Dioxide 20 L BUN 95 H Creatinine 2.15 H Glucose 286 H POC Glucose (mg/dL) Calcium Magnesium 2.5 H Ferritin Troponin I 0.035 H* C-Reactive Protein Urine Protein Urine Glucose (UA) Coronavirus (PCR) 05/17/21 05/17/21 05/18/21 17:07 20:40 08:21 Hgb Hct D-Dimer 1.30 H Sodium Potassium Chloride Carbon Dioxide BUN Creatinine Glucose POC Glucose (mg/dL) 241 H Calcium Magnesium Ferritin Troponin I C-Reactive Protein Urine Protein Trace H Urine Glucose (UA) Trace H Coronavirus (PCR) 05/18/21 05/18/21 05/19/21 17:47 20:33 04:30 Hgb Hct D-Dimer Sodium Potassium Chloride Carbon Dioxide BUN Creatinine Glucose POC Glucose (mg/dL) 174 H 162 H Calcium Magnesium Ferritin Troponin I C-Reactive Protein Urine Protein Urine Glucose (UA) Coronavirus (PCR) Detected A 05/19/21 05/19/21 05/19/21 06:18 06:53 06:53 Hgb 11.7 L Hct 37.6 L D-Dimer Sodium Potassium 5.4 H Chloride 114 H Carbon Dioxide BUN 59 H Creatinine 1.41 H Glucose 133 H POC Glucose (mg/dL) 136 H Calcium 8.3 L Magnesium Ferritin Troponin I C-Reactive Protein Urine Protein Urine Glucose (UA) Coronavirus (PCR) 05/19/21 05/19/21 05/19/21 11:35 17:14 17:24 Hgb Hct D-Dimer Sodium Potassium Chloride Carbon Dioxide BUN Creatinine Glucose POC Glucose (mg/dL) 185 H 172 H Calcium Magnesium Ferritin 604.0 H Troponin I C-Reactive Protein Urine Protein Urine Glucose (UA) Coronavirus (PCR) 05/19/21 05/19/21 05/19/21 17:24 17:24 20:54 Hgb Hct D-Dimer 0.72 H Sodium Potassium Chloride Carbon Dioxide BUN Creatinine Glucose POC Glucose (mg/dL) 226 H Calcium Magnesium Ferritin Troponin I C-Reactive Protein 5.1 H Urine Protein Urine Glucose (UA) Coronavirus (PCR) 05/20/21 05/20/21 06:00 11:26 Hgb Hct D-Dimer Sodium Potassium Chloride Carbon Dioxide BUN Creatinine Glucose POC Glucose (mg/dL) 204 H 398 H Calcium Magnesium Ferritin Troponin I C-Reactive Protein Urine Protein Urine Glucose (UA) Coronavirus (PCR) - Diagnostic Findings Chest x-ray: image reviewed Assessment and Plan Assessment: 1 Generalized weakness with falls secondary to dehydration and ongoing COVID-19 infection 2 Acute on chronic renal failure, history of stage III chronic kidney disease 3 Recurrent urinary tract infection currently on Rocephin, recent urine cultures positive for Klebsiella pneumoniae 4 History of CAD with previous bypass grafting, and previous stent placement 5 Prior history of myocardial infarction 6 History of diabetes with diabetic neuropathy 7 History of CVA 8 History of hypertension 9 History of urinary retention with self-catheterization Plan: The patient was seen and evaluated Chest x-ray and labs reviewed Stable from the pulmonary standpoint Continue Decadron, Lovenox, vitamin supplements We will continue to follow and make further recommendations based on his clinical status I, the cosigning physician, performed a history & physical examination of the patient. Lungs sounds with faint crackles in the posterior bases. Maintaining good O2 saturations in the 90s on 2 L/m per nasal cannula. I discussed the assessment and plan of care with my nurse practitioner, Maribel Ramos. I attest to the above consultation as dictated by her. I have personally seen and examined the patient, performed the documentation and the assessment and plan as written. Number of minutes spent on the visit: 20. <Uday Baez - Last Filed: 05/20/21 13:02> Physical Exam Vitals: Vital Signs Temp Pulse Resp BP Pulse Ox 05/20/21 12:00 97.3 F L 73 16 166/88 97 05/20/21 08:00 76 16 140/66 96 05/20/21 06:37 160/74 05/20/21 03:35 78 16 144/64 90 L 05/20/21 02:00 16 05/19/21 23:10 71 16 135/60 91 L 05/19/21 20:00 97.9 F 70 16 151/67 91 L 05/19/21 16:00 71 16 91 L Intake and Output 05/19/21 05/20/21 05/20/21 22:59 06:59 14:59 Intake Total 368 480 240 Output Total 600 600 Balance -232 -120 240 Intake: Intake, IV Titration 50 Amount Sodium Chloride 0.9% 1, 50 000 ml @ 50 mls/hr IV . Q20H [facility] Rx#:[id number] Oral 318 480 240 Output: Urine 600 600 Other: Voiding Method Indwelling Catheter Indwelling Catheter Indwelling Catheter Weight 70.307 kg Results - Laboratory Findings CBC and BMP: 05/19/21 06:53 05/19/21 06:53 PT/INR, D-dimer D-Dimer 0.72 mg/L FEU (<0.60) H 05/19/21 17:24 Abnormal lab findings: Abnormal Labs 05/17/21 05/17/21 05/17/21 17:07 17:07 17:07 Hgb 12.7 L Hct 38.3 L D-Dimer Sodium 136 L Potassium Chloride Carbon Dioxide 20 L BUN 95 H Creatinine 2.15 H Glucose 286 H POC Glucose (mg/dL) Calcium Magnesium 2.5 H Ferritin Troponin I 0.035 H* C-Reactive Protein Urine Protein Urine Glucose (UA) Coronavirus (PCR) 05/17/21 05/17/21 05/18/21 17:07 20:40 08:21 Hgb Hct D-Dimer 1.30 H Sodium Potassium Chloride Carbon Dioxide BUN Creatinine Glucose POC Glucose (mg/dL) 241 H Calcium Magnesium Ferritin Troponin I C-Reactive Protein Urine Protein Trace H Urine Glucose (UA) Trace H Coronavirus (PCR) 05/18/21 05/18/21 05/19/21 17:47 20:33 04:30 Hgb Hct D-Dimer Sodium Potassium Chloride Carbon Dioxide BUN Creatinine Glucose POC Glucose (mg/dL) 174 H 162 H Calcium Magnesium Ferritin Troponin I C-Reactive Protein Urine Protein Urine Glucose (UA) Coronavirus (PCR) Detected A 05/19/21 05/19/21 05/19/21 06:18 06:53 06:53 Hgb 11.7 L Hct 37.6 L D-Dimer Sodium Potassium 5.4 H Chloride 114 H Carbon Dioxide BUN 59 H Creatinine 1.41 H Glucose 133 H POC Glucose (mg/dL) 136 H Calcium 8.3 L Magnesium Ferritin Troponin I C-Reactive Protein Urine Protein Urine Glucose (UA) Coronavirus (PCR) 05/19/21 05/19/21 05/19/21 11:35 17:14 17:24 Hgb Hct D-Dimer Sodium Potassium Chloride Carbon Dioxide BUN Creatinine Glucose POC Glucose (mg/dL) 185 H 172 H Calcium Magnesium Ferritin 604.0 H Troponin I C-Reactive Protein Urine Protein Urine Glucose (UA) Coronavirus (PCR) 05/19/21 05/19/21 05/19/21 17:24 17:24 20:54 Hgb Hct D-Dimer 0.72 H Sodium Potassium Chloride Carbon Dioxide BUN Creatinine Glucose POC Glucose (mg/dL) 226 H Calcium Magnesium Ferritin Troponin I C-Reactive Protein 5.1 H Urine Protein Urine Glucose (UA) Coronavirus (PCR) 05/20/21 05/20/21 06:00 11:26 Hgb Hct D-Dimer Sodium Potassium Chloride Carbon Dioxide BUN Creatinine Glucose POC Glucose (mg/dL) 204 H 398 H Calcium Magnesium Ferritin Troponin I C-Reactive Protein Urine Protein Urine Glucose (UA) Coronavirus (PCR) Assessment and Plan Assessment: I have personally seen and examined the patient and reviewed the documentation. I performed a joint evaluation with the nurse practitioner in this evaluation was done more than 30 minutes. I fully agree with the documentation above and the plan of care. The patient's overall respiratory status is stable. Nevertheless, the patient has multiple medical problems and comorbidities. He came in with dehydration and acute kidney injury which is improving. No clear indication of another recurrent UTI although this is something that needs to be watched for. His correlation infections chronic and his test remains positive. Nevertheless, no signs of any further respiratory decompensation. Week performance status. Consider placement.
[2021-05-20 16:46] LABS: Glucose,Whole Blood 327 mg/dL (75-99)
[2021-05-20] MEDS: INSULIN ASPART (NovoLOG) 100 UNIT/ML VIAL SQ SCH ×2 (16:59→20:55)
[2021-05-20] MEDS: SODIUM CHLORIDE 0.9% 1,000 ML IV SCH (17:03)
[2021-05-20 20:40] LABS: Glucose,Whole Blood 217 mg/dL (75-99)
[2021-05-20] MEDS: ATORVASTATIN 40 MG TAB PO SCH (20:55)
[2021-05-20] MEDS ORDERED: INSULN ASP PRT/INSULIN ASPART 100 UNIT/ML 10 ML VIAL SQ SCH (21:00)
[2021-05-21 06:14] LABS: Glucose,Whole Blood 139 mg/dL (75-99)
[2021-05-21] MEDS: INSULIN ASPART (NovoLOG) 100 UNIT/ML VIAL SQ SCH ×2 (06:32→12:15)
[2021-05-21] MEDS: LEVOTHYROXINE 50 MCG TAB PO SCH (06:32)
[2021-05-21] MEDS: carvediloL 6.25 MG TAB PO SCH (06:32)
[2021-05-21] MEDS: SODIUM CHLORIDE 0.9% 1,000 ML IV SCH (06:33)
[2021-05-21] MEDS ORDERED: PANTOPRAZOLE 40 MG TABLET PO SCH (07:30)
[2021-05-21] MEDS ORDERED: INSULN ASP PRT/INSULIN ASPART 100 UNIT/ML 10 ML VIAL SQ SCH (09:00)
[2021-05-21 09:52] VITALS: TEMP 97.8
[2021-05-21] MEDS: ZINC SULFATE 220 MG CAP PO SCH (09:52)
[2021-05-21] MEDS: CHOLECALCIFEROL 25 MCG (1000 IU) TABLET PO SCH (09:52)
[2021-05-21] MEDS: CLOPIDOGREL 75 MG TAB PO SCH (09:52)
[2021-05-21] MEDS: amLODIPine 10 MG TAB PO SCH (09:52)
[2021-05-21] MEDS: ISOSORBIDE MONONITRATE ER 30 MG TAB.ER.24H PO SCH (09:52)
[2021-05-21] MEDS: ENOXAPARIN 40 MG/0.4 ML SYRINGE SQ SCH (09:52)
[2021-05-21] MEDS: ASCORBIC ACID 500 MG TAB PO SCH (09:52)
[2021-05-21] MEDS: DEXAMETHASONE SOD PHOSPHATE 10 MG/ML 1 ML VIAL IVP SCH (09:53)
[2021-05-21] MEDS ORDERED: FUROSEMIDE 40 MG TAB PO SCH (11:30)
--- NOTE | 2021-05-21 11:34 | P.DS ---
Providers Date of admission: 05/17/21 19:08 Expected date of discharge: 05/21/21 Attending physician: Fred Duff Consults: 05/19/21 17:11 Consult Physician Routine Consulting Provider: Uday Baez Consult Reason/Comments: Covid Do you want consulting provider notified?: Yes Primary care physician: Fred uDff [facility] Course: Final Diagnoses: Ongoing Covid 19 infection, in a patient with recent Covid initially detected on 05/08/21. Chest x-ray reported no significant change from prior on 05/14/2021. Acute on chronic hypoxic respiratory failure, ER report states patient refusing to wear O2 at home, 88% on room air per paramedics. Increasing generalized weakness, status post fall,slip with inability to regain standing back up independently. Recurrent acute UTI, ruled out, culture reported no growth after 18 hours, in a patient with chronic urinary retention,self caths 5 times a day Recent UTI with Klebsiella pneumonia in a patient with history of urinary reten tion Dehydration, improved with IV fluid hydration Acute on Chronic kidney disease, stage IV, baseline 1.5 Abnormal troponin, secondary to the above, decreased from recent admission Hyponatremia CAD with history of NH, CABG Hypertension Diabetes mellitus II Diabetic neuropathy History of CVA Diabetic neuropathy and nephropathy Hospital course:This is an 85-year-old gentleman with past medical history of recent covid, recent uti,CAD,NH, CABG, CVA, chronic urinary retention with self- catheterization , recurrent UTIs -history of Klebsiella, chronic kidney disease stage IV, chronic anemia diabetes mellitus, chronic neuropathy in hands and feet, hypertension, hyperlipidemia, peripheral vascular disease and multiple other medical issues presented to the ER via EMS secondary to increasing gene ralized weakness, status post fall and could not get up off the floor. Patient has O2 at home and has been refusing to wear O2, 88% on room air upon paramedics arrival. T-max 101.5, WBC within normal limits. Denies nausea vomiting or diarrhea. EKG sinus with right bundle branch block. Troponin 0.035, decreased from prior admission. Denies chest pain, palpitations. Hemoglobin 12.7, platelets 194. D-dimer 1.3 (recent Covid). Sodium 136, potassium 5.1, bicarb 20, BUN 95, creatinine 2.15, hyperglycemic with blood sugars mid 200s to 280s, lactic acid 1.3, phosphorus 5.6,, magnesium 2.5, creatinine kinase 73. UA reported trace glucose, trace protein and negative for nitrate, negative leukocytes. 3 reports interrupted sleep, tired. Denies nausea vomiting or diarrhea. Denies abdominal pain. Denies chest pain, palpitations or shortness of breath. Afebrile normal WBC. Continues on IV fluid hydration with sodium normalized, renal function improving, new baseline. Blood sugars controlled. VQ reported nondiagnostic for pulmonary embolism, Doppler bilateral lower extremities reported negative for DVT. Covid PCR positive. Maintaining O2 sats in the low 90s on room air. Hemodynamically stable . Maintained on vitamin supplements, Decadron . Ceftriaxone discontinued as urine culture reported no growth .Afebrile .Maintaining O2 sats in the high 90s on 2 L nasal cannula.Significant clinical improvement. Cleared by pulmonary for discharge. Recent creatinine 1.41, repeat BMP in progress. Denies chest pain, palpitations or increasing shortness of breath. Patient will be discharged to [facility] subacute rehab today in a stable condition with guarded prognosis. The impression and plan of care has been dictated as directed. : I performed a history and examination of this patient, discussed the same with the dictator. I agree with the dictator's note ,documented as a scribe. Any additional findings or plans will be noted. Patient Condition at Discharge: Stable Plan - Discharge Summary Discharge Rx Participant: No New Discharge Prescriptions: New Dexamethasone [Decadron] 6 mg PO DAILY #7 tablet Zinc Sulfate [Orazinc] 220 mg PO DAILY cap Pantoprazole [Protonix] 40 mg PO AC-BRKFST tab Cholecalciferol [Vitamin D3 (25 Mcg = 1000 Iu)] 50 mcg PO DAILY tablet traMADol HCl [Ultram] 50 mg PO TID PRN #9 tab PRN Reason: Moderate Pain Ascorbic Acid [Vitamin C] 500 mg PO BID tab INSULIN LISPRO (HumaLOG) [humaLOG] 0 unit SQ ACHS #10 ml Continue Clopidogrel [Plavix] 75 mg PO DAILY #30 tab Isosorbide Mononitrate ER [Imdur] 30 mg PO DAILY #30 tab.er.24h Furosemide [Lasix] 40 mg PO DAILY amLODIPine [Norvasc] 10 mg PO DAILY #30 tab Levothyroxine Sodium [Synthroid] 50 mcg PO AC-BRKFST Insulin Aspart Protam & Aspart [NovoLOG MIX 70-30 Flexpen] 12 unit SQ HS lisinopriL [Zestril] 5 mg PO DAILY carvediloL [Coreg] 6.25 mg PO BID-W/MEALS Atorvastatin [Lipitor] 40 mg PO HS Insulin Aspart Protam & Aspart [NovoLOG MIX 70-30 Flexpen] 10 unit SQ DAILY Insulin Aspart Protam & Aspart [NovoLOG MIX 70-30 Flexpen] See Protocol SQ HS Acetaminophen Tab [Tylenol] 650 mg PO Q6HR PRN tab PRN Reason: Mild Pain Or Fever > 100.5 Discharge Medication List Clopidogrel [Plavix] 75 mg PO DAILY #30 tab 11/20/15 [Rx] Isosorbide Mononitrate ER [Imdur] 30 mg PO DAILY #30 tab.er.24h 11/20/15 [Rx] Furosemide [Lasix] 40 mg PO DAILY 04/10/16 [History] amLODIPine [Norvasc] 10 mg PO DAILY #30 tab 04/17/16 [Rx] Atorvastatin [Lipitor] 40 mg PO HS 05/09/21 [History] Insulin Aspart Protam & Aspart [NovoLOG MIX 70-30 Flexpen] 10 unit SQ DAILY 05/09/21 [History] Insulin Aspart Protam & Aspart [NovoLOG MIX 70-30 Flexpen] 12 unit SQ HS 05/09/21 [History] Insulin Aspart Protam & Aspart [NovoLOG MIX 70-30 Flexpen] See Protocol SQ HS 05/09/21 [History] Levothyroxine Sodium [Synthroid] 50 mcg PO AC-BRKFST 05/09/21 [History] carvediloL [Coreg] 6.25 mg PO BID-W/MEALS 05/09/21 [History] Acetaminophen Tab [Tylenol] 650 mg PO Q6HR PRN tab 05/11/21 [Rx] lisinopriL [Zestril] 5 mg PO DAILY 05/14/21 [History] Ascorbic Acid [Vitamin C] 500 mg PO BID tab 05/21/21 [Rx] Cholecalciferol [Vitamin D3 (25 Mcg = 1000 Iu)] 50 mcg PO DAILY tablet 05/21/21 [Rx] Dexamethasone [Decadron] 6 mg PO DAILY #7 tablet 05/21/21 [Rx] INSULIN LISPRO (HumaLOG) [humaLOG] 0 unit SQ ACHS #10 ml 05/21/21 [Rx] Pantoprazole [Protonix] 40 mg PO AC-BRKFST tab 05/21/21 [Rx] Zinc Sulfate [Orazinc] 220 mg PO DAILY cap 05/21/21 [Rx] traMADol HCl [Ultram] 50 mg PO TID PRN #9 tab 05/21/21 [Rx] Follow up Appointment(s)/Referral(s): Fred Duff DO [Primary Care Provider] - 1 Week (After discharge from subacute rehab) Kate Alvarez [NON-STAFF] - Activity/Diet/Wound Care/Special Instructions: Creatinine pending [facility] CBC,BMP in 3 days Discharge Disposition: TRANSFER TO SNF/ECF
[2021-05-21 11:55] LABS: Glucose,Whole Blood 230 mg/dL (75-99)
[2021-05-21 12:15] VITALS: BP 193/83; PULSE 75; RESP 16
[2021-05-21] MEDS ORDERED: lisinopriL 5 MG TAB PO SCH (12:30)
[2021-05-21 12:39] LABS: Calcium 8.4 mg/dL (8.4-10.2); Potassium 5.1 mmol/L (3.5-5.1)
--- NOTE | 2021-05-21 14:17 | P.PN ---
<Denisa Kiser M - Last Filed: 05/21/21 14:09> Subjective Progress Note Date: 05/21/21 Principal diagnosis: Generalized weakness, falls This is an 85-year-old male patient who follows with Dr. Duff as his primary care physician. He has a history of coronary disease, angina, CVA, diabetes, hypertension, myocardial infarction, urinary retention, neuropathy, stage III chronic kidney disease, and anemia. The patient has also had bypass grafting, and heart catheterization with stents. He's had frequent admissions to the hospital recently for dehydration, weakness, and had tested positive for COVID- 19. He was initially positive on 05/08/2019. He performs self catheterizations and frequent UTI secondary to Klebsiella pneumoniae, Chest x-ray reveals some mild pulmonary fibrotic changes. No significant change compared to previous on 05/14/2021. Computed tomography scan of the brain revealed cerebral peripheral atrophy and chronic small vessel ischemia. 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 No acute abnormalities. VQ scan room was nondiagnostic for pulmonary embolus. Dopplers of the lower extremities are negative for DVT. White count 4.5. Hemoglobin 11.7. Platelets 170,000. D-dimer 0.72. Sodium 143. Potassium 5.4. BUN 59. Creatinine 1.41. Glucose 133. Ferritin 604. LDH 393. C-reactive protein 5.1. Crohn advised by PCR positive. He is seen today in co nsultation on the selective care unit. He is currently resting flat in bed. Awake and alert in no acute distress. Denies any worsening shortness of breath, cough or congestion. He is maintaining O2 saturations in the mid to upper 90s on 2 L/m per nasal cannula. His been afebrile. Hemodynamically stable. He's been initiated on ceftriaxone, Decadron, Lovenox, vitamin supplements. On 05/21/2021 patient seen in follow-up on selective care unit, he is resting in bed, continues of oxygen his pulse ox is 97%, he denies any worsening dyspnea, occasional cough, no phlegm production, no chest discomfort, denies any acute events overnight, has no specific complaints. His lower extremity Dopplers were completed showing no evidence of DVT. He remains on prophylactic dose of Lovenox, and Decadron 6 mg daily. Denies nausea vomiting or diarrhea, tolerating oral intake, his renal function is improving on today's labs. His repeat urinalysis showed no clear evidence of urinary tract infection. Objective - Vital Signs Vital signs: Vital Signs Temp 97.8 F 05/21/21 09:49 Pulse 75 05/21/21 12:00 Resp 16 05/21/21 12:00 BP 193/83 05/21/21 12:00 Pulse Ox 92 L 05/21/21 12:00 Intake & Output 05/20/21 05/21/21 05/21/21 18:59 06:59 18:59 Intake Total 950 485 780 Output Total 1200 650 Balance -250 485 130 Weight 70.307 kg Intake: Intake, IV Titration 50 Amount cefTRIAXone 1 gm In 50 Sodium Chloride 0.9% 50 ml @ 100 mls/hr IVPB Q24HR [facility] Rx#:[id number] Oral 900 485 780 Output: Urine 1200 650 Other: Voiding Method Indwelling Catheter Indwelling Catheter Indwelling Catheter - Exam GENERAL EXAM: Alert, very pleasant 85-year-old white male, resting in bed, currently on 2 L of oxygen pulse ox is 97% comfortable in no apparent distress. HEAD: Normocephalic/atraumatic. EYES: Normal reaction of pupils, equal size. Conjunctiva pink, sclera white. NOSE: Clear with pink turbinates. THROAT: No erythema or exudates. NECK: No masses, no JVD, no thyroid enlargement, no adenopathy. CHEST: No chest wall deformity. Symmetrical expansion. LUNGS: Equal air entry with no crackles, wheeze, rhonchi or dullness. CVS: Regular rate and rhythm, normal S1 and S2, no gallops, no murmurs, no rubs ABDOMEN: Soft, nontender. No hepatosplenomegaly, normal bowel sounds, no guarding or rigidity. EXTREMITIES: No clubbing, no edema, no cyanosis, 2+ pulses and upper and lower extremities. MUSCULOSKELETAL: Muscle strength and tone normal. SPINE: No scoliosis or deformity SKIN: No rashes CENTRAL NERVOUS SYSTEM: Alert and oriented -3. No focal deficits, tone is normal in all 4 extremities. PSYCHIATRIC: Alert and oriented -3. Appropriate affect. Intact judgment and insight. - Labs CBC & Chem 7: 05/19/21 06:53 05/21/21 10:59 Labs: Abnormal Lab Results - Last 24 Hours (Table) 05/20/21 05/20/21 05/21/21 Range/Units 16:45 20:35 06:11 Chloride (98-107) mmol/L BUN (9-20) mg/dL Creatinine (0.66-1.25) mg/dL Glucose (74-99) mg/dL POC Glucose (mg/dL) 327 H 217 H 139 H (75-99) mg/dL 05/21/21 05/21/21 Range/Units 10:59 11:54 Chloride 113 H (98-107) mmol/L BUN 33 H (9-20) mg/dL Creatinine 1.31 H (0.66-1.25) mg/dL Glucose 221 H (74-99) mg/dL POC Glucose (mg/dL) 230 H (75-99) mg/dL Microbiology - Last 24 Hours (Table) 05/18/21 15:35 Urine Culture - Final Urine,Catheterized 05/17/21 17:07 Blood Culture - Preliminary Blood No Growth after 72 hours Assessment and Plan Plan: Assessment: 1 Generalized weakness with falls secondary to dehydration and ongoing COVID-19 infection 2 Acute on chronic renal failure, history of stage III chronic kidney disease 3 Recurrent urinary tract infection currently on Rocephin, recent urine cultures positive for Klebsiella pneumoniae 4 History of CAD with previous bypass grafting, and previous stent placement 5 Prior history of myocardial infarction 6 History of diabetes with diabetic neuropathy 7 History of CVA 8 History of hypertension 9 History of urinary retention with self-catheterization Plan: Patient has remained stable from pulmonary perspective No worsening dyspnea, or hypoxia Vital signs have been stable Weaning FiO2 Today's labs have been noted Increase activity as tolerated Continue Decadron, continue prophylactic anticoagulation and multivitamins Repeat urinalysis showed no clear evidence of urinary tract infection Patient is being considered for discharge to subacute rehab possibly today I have personally seen and examined the patient, performed the documentation and the assessment and plan as written. Number of minutes spent on the visit: [10] Time with Patient: Less than 30 <Uday Baez - Last Filed: 05/21/21 15:29> Objective - Vital Signs Vital signs: Vital Signs Temp 97.8 F 05/21/21 09:49 Pulse 75 05/21/21 12:00 Resp 16 05/21/21 12:00 BP 193/83 05/21/21 12:00 Pulse Ox 92 L 05/21/21 12:00 Intake & Output 05/20/21 05/21/21 05/21/21 18:59 06:59 18:59 Intake Total 950 485 780 Output Total 1200 1100 Balance -250 485 -320 Weight 70.307 kg Intake: Intake, IV Titration 50 Amount cefTRIAXone 1 gm In 50 Sodium Chloride 0.9% 50 ml @ 100 mls/hr IVPB Q24HR [facility] Rx#:[id number] Oral 900 485 780 Output: Urine 1200 1100 Other: Voiding Method Indwelling Catheter Indwelling Catheter Indwelling Catheter - Labs CBC & Chem 7: 05/19/21 06:53 05/21/21 10:59 Labs: Abnormal Lab Results - Last 24 Hours (Table) 05/20/21 05/20/21 05/21/21 Range/Units 16:45 20:35 06:11 Chloride (98-107) mmol/L BUN (9-20) mg/dL Creatinine (0.66-1.25) mg/dL Glucose (74-99) mg/dL POC Glucose (mg/dL) 327 H 217 H 139 H (75-99) mg/dL 05/21/21 05/21/21 Range/Units 10:59 11:54 Chloride 113 H (98-107) mmol/L BUN 33 H (9-20) mg/dL Creatinine 1.31 H (0.66-1.25) mg/dL Glucose 221 H (74-99) mg/dL POC Glucose (mg/dL) 230 H (75-99) mg/dL Microbiology - Last 24 Hours (Table) 05/18/21 15:35 Urine Culture - Final Urine,Catheterized 05/17/21 17:07 Blood Culture - Preliminary Blood No Growth after 72 hours Assessment and Plan Plan: I have personally seen and examined the patient and reviewed the documentation. I performed a joint evaluation with the nurse practitioner in this evaluation was done more than 150 minutes. I fully agree with the documentation above and the plan of CARE.
--- NOTE | 2021-05-21 16:06 | P.PN ---
Subjective Progress Note Date: 05/20/21 This is an 85-year-old gentleman with past medical history of recent covid, recent uti,CAD,MO, CABG, CVA, chronic urinary retention with self- catheterization , recurrent UTIs -history of Klebsiella, chronic kidney disease stage IV, chronic anemia diabetes mellitus, chronic neuropathy in hands and feet, hypertension, hyperlipidemia, peripheral vascular disease and multiple other medical issues presented to the ER via EMS secondary to increasing generalized weakness, status post fall and could not get up off the floor. Patient has O2 at home and has been refusing to wear O2, 88% on room air upon paramedics arrival. T-max 101.5, WBC within normal limits. Denies nausea vomiting or diarrhea. EKG sinus with right bundle branch block. Troponin 0.035, decreased from prior admission. Denies chest pain, palpitations. Hemoglobin 12.7, platelets 194. D-dimer 1.3 (recent Covid). Sodium 136, potassium 5.1, bicarb 20, BUN 95, creatinine 2.15, hyperglycemic with blood sugars mid 200s to 280s, lactic acid 1.3, phosphorus 5.6,, magnesium 2.5, creatinine kinase 73. UA reported trace glucose, trace protein and negative for nitrate, negative leukocytes. 05-19-21 reports interrupted sleep, tired. Denies nausea vomiting or diarrhea. Denies abdominal pain. Denies chest pain, palpitations or shortness of breath. Afebrile normal WBC. Continues on IV fluid hydration with sodium normalized, renal function improving, new baseline. Blood sugars controlled. VQ reported nondiagnostic for pulmonary embolism, Doppler bilateral lower extremities reported negative for DVT. Covid PCR positive. Maintaining O2 sats in the low 90s on room air. 05/20/2021 continues on Covid cocktail, maintaining O2 sats in the 90s on 2 L nasal cannula. Afebrile. Final urine culture pending currently on empiric ceft riaxone. Denies chest pain, palpitations or increased shortness of breath. Objective - Vital Signs Vital signs: Vital Signs Temp 97.3 F L 05/20/21 12:00 Pulse 73 05/20/21 12:00 Resp 16 05/20/21 12:00 BP 166/88 05/20/21 12:00 Pulse Ox 97 05/20/21 12:00 Intake & Output 03/05/1105/20/21 05/20/21 18:59 06:59 18:59 Intake Total 118 730 240 Output Total 600 1200 Balance -482 -470 240 Weight 70.307 kg Intake: Intake, IV Titration 50 Amount Sodium Chloride 0.9% 1, 50 000 ml @ 50 mls/hr IV . Q20H [facility] Rx#:[id number] Oral 118 680 240 Output: Urine 600 1200 Other: Voiding Method Indwelling Catheter Indwelling Catheter Indwelling Catheter - Exam PHYSICAL EXAM: VITAL SIGNS: As above GENERAL: Alert and oriented 2 ,Sitting up in bed, tired, NAD HEENT: Conjunctivae normal. eyes normal. Oral mucosa moist NECK: supple, No JVD. CARDIOVASCULAR: S1, S2 regular. Systolic murmur RESPIRATION: Breath sounds diminished in the bases. ABDOMEN: Soft, nontender.No guarding. No rebound, rigidity, guarding .Bowel sounds heard. LEGS: No edema. no swelling. Diminished pulses. NERVOUS SYSTEM: Cranial N 2-12 grossly normal.Diffuse weakness, No focal deficits. Strength and sensation grossly intact. Skin: Warm and dry, no rash - Labs CBC & Chem 7: 05/19/21 06:53 05/21/21 10:59 Labs: Abnormal Lab Results - Last 24 Hours (Table) 05/19/21 05/19/21 05/19/21 Range/Units 17:14 17:24 17:24 D-Dimer 0.72 H (<0.60) mg/L FEU POC Glucose (mg/dL) 172 H (75-99) mg/dL Ferritin 604.0 H (22.0-322.0) ng/mL C-Reactive Protein (<1.0) mg/dL 05/19/21 05/19/21 05/20/21 Range/Units 17:24 20:54 06:00 D-Dimer (<0.60) mg/L FEU POC Glucose (mg/dL) 226 H 204 H (75-99) mg/dL Ferritin (22.0-322.0) ng/mL C-Reactive Protein 5.1 H (<1.0) mg/dL 05/20/21 Range/Units 11:26 D-Dimer (<0.60) mg/L FEU POC Glucose (mg/dL) 398 H (75-99) mg/dL Ferritin (22.0-322.0) ng/mL C-Reactive Protein (<1.0) mg/dL Microbiology - Last 24 Hours (Table) 05/18/21 15:35 Urine Culture - Preliminary Urine,Catheterized 05/17/21 17:07 Blood Culture - Preliminary Blood No Growth after 48 hours Assessment and Plan Assessment: Ongoing Covid 19 infection, in a patient with recent Covid initially detected on 05/08/21. Acute on chronic hypoxic respiratory failure, secondary to the above Increasing generalized weakness, status post fall,slip with inability to regain standing back up independently. Possible Recurrent acute UTI, cultures pending, in a patient with chronic urinary retention,self caths 5 times a day Recent UTI with Klebsiella pneumonia in a patient with history of urinary retention Dehydration Acute on Chronic kidney disease, stage IV, baseline 1.5 Abnormal troponin, secondary to the above, decreased from recent admission Hyponatremia CAD with history of MO, CABG Hypertension Diabetes mellitus II Diabetic neuropathy History of CVA Diabetic neuropathy and nephropathy Plan: Continue on current medication regime ,monitoring and symptomatic treatment. Continues on Covid cocktail. Urine and blood cultures finalizing.empiric antibiotics. Discharge planning in progress pending pulmonary clearance. The impression and plan of care has been dictated as directed. : I performed a history and examination of this patient, discussed the same with the dictator. I agree with the dictator's note ,documented as a scribe. Any additional findings or plans will be noted.
== END 2021-05-21 15:50 | DRG 177 ==
LOC: EC 16:05 → 3SCARD 19:08
PROVIDERS: ADMIT Family Medicine; ATTEND Family Medicine
DX: U07.1 COVID-19 (principal); J96.21 Acute and chronic respiratory failure with hypoxia; N17.9 Acute kidney failure, unspecified; N39.0 Urinary tract infection, site not specified; N18.4 Chronic kidney disease, stage 4 (severe); I69.354 Hemiplegia and hemiparesis following cerebral infarction affecting left non-dominant side; I45.10 Unspecified right bundle-branch block; E11.22 Type 2 diabetes mellitus with diabetic chronic kidney disease; E11.40 Type 2 diabetes mellitus with diabetic neuropathy, unspecified; E86.0 Dehydration; R62.7 Adult failure to thrive; E11.51 Type 2 diabetes mellitus with diabetic peripheral angiopathy without gangrene; E11.65 Type 2 diabetes mellitus with hyperglycemia; I12.9 Hypertensive chronic kidney disease with stage 1 through stage 4 chronic kidney disease, or unspecified chronic kidney disease; E78.5 Hyperlipidemia, unspecified; R29.6 Repeated falls; D63.1 Anemia in chronic kidney disease; S50.812A Abrasion of left forearm, initial encounter; S90.411A Abrasion, right great toe, initial encounter; W19.XXXA Unspecified fall, initial encounter; R33.9 Retention of urine, unspecified; I25.119 Atherosclerotic heart disease of native coronary artery with unspecified angina pectoris; Z96.1 Presence of intraocular lens; Z87.440 Personal history of urinary (tract) infections; I25.2 Old myocardial infarction; Z79.02 Long term (current) use of antithrombotics/antiplatelets; Z79.4 Long term (current) use of insulin; Z79.890 Hormone replacement therapy; Z79.899 Other long term (current) drug therapy; Z82.49 Family history of ischemic heart disease and other diseases of the circulatory system; Z83.3 Family history of diabetes mellitus; Z87.891 Personal history of nicotine dependence; Z95.1 Presence of aortocoronary bypass graft; Z95.5 Presence of coronary angioplasty implant and graft; Z98.41 Cataract extraction status, right eye; Z98.42 Cataract extraction status, left eye; Z91.041 Radiographic dye allergy status
CPT/HCPCS: 36415; 70450; 71046; 78580; 80048; 80053; 81003; 82140; 82550; 82728; 83605; 83615; 83735; 83880; 84484; 85025; 85379; 86140; 87040; 87086; 87635; 93005; 93970; 96361; 96374; 99285

== ENCOUNTER 2021-06-07 01:38 | Inpatient (IN) | payer MEDICARE, BC ==
[2021-06-07] MEDS ORDERED: SODIUM CHLORIDE 0.9% 1,000 ML IV STA (01:43)
[2021-06-07] MEDS ORDERED: SODIUM CHLORIDE 0.9% 500 ML 500 ML IV STA (01:43)
--- NOTE | 2021-06-07 02:15 | ED ---
Chest Pain HPI - General Chief Complaint: Chest Pain Stated Complaint: Fall, confusion, chest pain Time Seen by Provider: 06/07/21 01:40 Source: EMS, RN notes reviewed, old records reviewed Mode of arrival: EMS Limitations: no limitations - History of Present Illness Initial Comments: This is an 85-year-old male to the ER for evaluation. Patient presents today for eval and weakness. Patient does have recent hospital admission for similar type symptoms. Patient not acting appropriately feels weak and short of breath occasional chest pain no current chest pain. No fever cough or congestion, no nausea vomiting or diarrhea patient has history of diabetes high blood pressure prior [place] CAD - Related Data Home Medications Medication Instructions Recorded Confirmed Furosemide [Lasix] 40 mg PO DAILY 04/10/16 05/17/21 Atorvastatin [Lipitor] 40 mg PO HS 05/09/21 05/17/21 Insulin Aspart Protam & Aspart 10 unit SQ DAILY 05/09/21 05/17/21 [NovoLOG MIX 70-30 Flexpen] Insulin Aspart Protam & Aspart 12 unit SQ HS 05/09/21 05/17/21 [NovoLOG MIX 70-30 Flexpen] Insulin Aspart Protam & Aspart See Protocol SQ HS 05/09/21 05/17/21 [NovoLOG MIX 70-30 Flexpen] Levothyroxine Sodium [Synthroid] 50 mcg PO AC-BRKFST 05/09/21 05/17/21 carvediloL [Coreg] 6.25 mg PO BID-W/MEALS 05/09/21 05/17/21 lisinopriL [Zestril] 5 mg PO DAILY 05/14/21 05/17/21 Previous Rx's Medication Instructions Recorded Clopidogrel [Plavix] 75 mg PO DAILY #30 tab 11/20/15 Isosorbide Mononitrate ER [Imdur] 30 mg PO DAILY #30 tab.er.24h 11/20/15 amLODIPine [Norvasc] 10 mg PO DAILY #30 tab 04/17/16 Acetaminophen Tab [Tylenol] 650 mg PO Q6HR PRN tab 05/11/21 Ascorbic Acid [Vitamin C] 500 mg PO BID tab 05/21/21 Cholecalciferol [Vitamin D3 (25 50 mcg PO DAILY tablet 05/21/21 Mcg = 1000 Iu)] Dexamethasone [Decadron] 6 mg PO DAILY #7 tablet 05/21/21 INSULIN LISPRO (HumaLOG) [humaLOG] 0 unit SQ ACHS #10 ml 05/21/21 Pantoprazole [Protonix] 40 mg PO AC-BRKFST tab 05/21/21 Zinc Sulfate [Orazinc] 220 mg PO DAILY cap 05/21/21 traMADol HCl [Ultram] 50 mg PO TID PRN #9 tab 05/21/21 Allergies Allergy/AdvReac Type Severity Reaction Status Date / Time Iodinated Contrast Media AdvReac Rash/Hives Verified 05/17/21 21:09 Review of Systems ROS Statement: Those systems with pertinent positive or pertinent negative responses have been documented in the HPI. ROS Other: All systems not noted in ROS Statement are negative. EKG Findings - EKG Comments: EKG Findings:: EKG shows sinus rhythm 89 OR 180 QRS 136 QTc 454 Past Medical History Past Medical History: Coronary Artery Disease (CAD), Chest Pain / Angina, CVA/TIA, Diabetes Mellitus, Hypertension, Myocardial Infarction (VT), Renal Disease, Vascular Disorder Additional Past Medical History / Comment(s): Pt recently admitted to [facility] on 05/14/21 with generalized weakness/UTI/Klebsiella/abnormal potassium levels. Other hx: Urinary retention requiring self-catheterization, pt thinks possible from effects from stroke as well as L arm/leg weakness, IDDM type II, bilateral neuropathy of hands and feet, PVD, VT - 04/09/16, diabetic nephropathy CKD stage III/IV, normocytic anemia, UTIs Last Myocardial Infarction Date:: 2016 History of Any Multi-Drug Resistant Organisms: None Reported Past Surgical History: Coronary Bypass/CABG, Heart Catheterization, Heart Catheterization With Stent Additional Past Surgical History / Comment(s): 5 VESSEL BYPASS 2006, stent RT leg , arthrectomy/stent March 2016, bilateral cataract removal with lens implants Past Anesthesia/Blood Transfusion Reactions: No Reported Reaction Date of Last Stent Placement:: 2016 Past Psychological History: No Psychological Hx Reported Smoking Status: Former smoker - Past Family History Brother(s) Family Medical History: Myocardial Infarction (VT) Mother Family Medical History: Diabetes Mellitus Additional Family Medical History / Comment(s): AT AGE 93 Father Family Medical History: Myocardial Infarction (VT) Additional Family Medical History / Comment(s): AT AGE 83 FROM VT. General Exam General appearance: alert, in no apparent distress Head exam: Present: atraumatic, normocephalic, normal inspection Eye exam: Present: normal appearance, PERRL, EOMI. Absent: scleral icterus, conjunctival injection, periorbital swelling ENT exam: Present: normal exam, mucous membranes moist Neck exam: Present: normal inspection. Absent: tenderness, meningismus, lymphadenopathy Respiratory exam: Present: normal lung sounds bilaterally. Absent: respiratory distress, wheezes, rales, rhonchi, stridor Cardiovascular Exam: Present: regular rate, normal rhythm, normal heart sounds. Absent: systolic murmur, diastolic murmur, rubs, gallop, clicks GI/Abdominal exam: Present: soft, normal bowel sounds. Absent: distended, tenderness, guarding, rebound, rigid Extremities exam: Present: normal inspection, full ROM, normal capillary refill. Absent: tenderness, pedal edema, joint swelling, calf tenderness Back exam: Present: normal inspection Neurological exam: Present: alert, oriented X3, CN II-XII intact Psychiatric exam: Present: normal affect, normal mood Skin exam: Present: warm, dry, intact, normal color. Absent: rash Course Vital Signs 06/07/21 06/07/21 01:45 01:52 Temperature 99.4 F 99.4 F Pulse Rate 90 91 Respiratory 18 18 Rate Blood Pressure 120/53 120/53 O2 Sat by Pulse 94 L 94 L Oximetry - Reevaluation(s) Reevaluation #1: 06/07/21 03:39 Medical record is reviewed Reevaluation #2: 06/07/21 03:39 Patient denying chest pain or shortness of breath Reevaluation #3: 06/07/21 03:39 Patient informed results and questions answered - Consultations Consultation #1: Spoke with [facility] regarding findings and agreed to admit this patient Chest Pain MDM - MDM 85 male DF for evaluation patient Dese for evaluation regards to some weakness. Patient found to have some dehydration significantly elevated troponin no EKG c hanges. Patient. Will be admitted For trending of troponin cardiology evaluation Disposition Clinical Impression: Tachycardia, Urinary retention, Dehydration, Weakness Disposition: ADMITTED IP TO THIS HOSP Condition: Good Is patient prescribed a controlled substance at d/c from ED?: No Referrals: Fred Duff DO [Primary Care Provider] - 1-2 days
[2021-06-07 02:45] LABS: Partial Thromboplastin Time 23.7 sec (22.0-30.0); Prothrombin Time 11.1 sec (9.0-12.0)
--- NOTE | 2021-06-07 02:47 | XR ---
EXAMINATION TYPE: XR chest 1V portable DATE OF EXAM: 06/07/2021 COMPARISON: 05/17/2021 HISTORY: Weakness TECHNIQUE: FINDINGS: There is no heart failure no confluent pneumonic infiltrate. Costophrenic angles are clear. There are sternal wires. There are chest leads. IMPRESSION: No active cardiopulmonary disease. There is clearing of the mild pulmonary interstitial i nfiltrate in the lower lung bernal compared to old exam
[2021-06-07 02:53] LABS: Basophils # (A) 0.1 k/uL (0-0.2); Basophils % (A) 1 %; Eosinophils % (A) 0 %; HGB 10.9 gm/dL (13.0-17.5); Lymphocytes # (A) 0.6 k/uL (1.0-4.8); Lymphocytes % (A) 4 %; MCHC 33.1 g/dL (31.0-37.0); MCV 84.6 fL (80.0-100.0); Monocytes # (A) 0.4 k/uL (0-1.0); Monocytes % (A) 2 %; Neutrophils % (A) 93 %; Platelet Count 127 k/uL (150-450); RDW 15.5 % (11.5-15.5); WBC 16.2 k/uL (3.8-10.6)
[2021-06-07 02:55] LABS: Albumin 2.7 g/dL (3.5-5.0); Calcium 8.2 mg/dL (8.4-10.2); Magnesium 1.9 mg/dL (1.6-2.3); Phosphorus 2.6 mg/dL (2.5-4.5); Potassium 4.2 mmol/L (3.5-5.1); Total Bilirubin 1.2 mg/dL (0.2-1.3); Total Protein 5.4 g/dL (6.3-8.2)
[2021-06-07] MEDS ORDERED: LORazepam 2 MG/ML INJ IV PRN (03:35)
[2021-06-07] MEDS ORDERED: ONDANSETRON 4 MG/2 ML VIAL IVP PRN (03:35)
[2021-06-07] MEDS ORDERED: NALOXONE 0.4 MG/ML 1 ML VIAL IV PRN (03:35)
[2021-06-07 03:40] LABS: Appearance,Urine Turbid (Clear); Bacteria,Urine Moderate /hpf; Bilirubin,Urine Negative (Negative); Blood,Urine Negative (Negative); Color,Urine Yellow; Glucose,Urine (UA) 3+ (Negative); Ketones,Urine Negative (Negative); Leukocyte Esterase,Urine Large (Negative); Mucus,Urine Occasional /hpf; Nitrite,Urine Negative (Negative); Protein,Urine 3+ (Negative); RBC,Urine 25 /hpf (0-5); Specific Gravity,Urine 1.015 (1.001-1.035); Urobilinogen,Urine <2.0 mg/dL (<2.0); WBC,Urine 122 /hpf (0-5)
[2021-06-07] MEDS: SODIUM CHLORIDE 0.9% 1,000 ML IV SCH ×3 (05:33→19:29)
[2021-06-07] MEDS ORDERED: HEPARIN SODIUM 1,000 UN/ML (10ML VL) IV ONE (09:41)
[2021-06-07] MEDS: HEPARIN SOD,PORK IN 0.45% NACL 25,000 UNIT in 0.45% NACL 1 250ML.BAG IV SCH (10:17)
[2021-06-07] MEDS: PANTOPRAZOLE 40 MG/10 ML VIAL IVP SCH (10:21)
[2021-06-07] MEDS: MORPHINE SULFATE 4 MG/ML SYRINGE IV PRN ×2 (10:22→23:38)
[2021-06-07] MEDS: ASPIRIN 81 MG PO SCH (10:26)
[2021-06-07] MEDS: carvediloL 3.125 MG TAB PO SCH ×2 (10:26→18:55)
--- NOTE | 2021-06-07 10:49 | P.CRDCN ---
History of Present Illness Consult date: 06/07/21 History of present illness: HISTORY OF PRESENT ILLNESS: This is a 85-year-old male with a past medical history significant for coronary artery disease with previous CABG and PCI, diabetes, hypertension, hyperlipidemia, TIA, and hypothyroidism. Patient follows in the office with Dr. Garcias. We have been asked to see the patient in consultation for abnormal troponins. Patient examined at the bedside. The patient presented to the hospital with generalized weakness and symptoms of a urinary tract infection. The patient denies having any chest pain or pressure. No shortness of breath. No nausea or vomiting. Denies dizziness or lightheadedness. The patient does report tenderness to his bilateral lower extremities. * EKG reveals sinus mechanism with right bundle branch block * Chest xray no active cardiopulmonary disease. There is clearing of mild pulmonary interstitial infiltrates in the lower lung field compared to old exam. * Laboratory data: WBC 16.2. Hemoglobin 10.9. Platelet count 127. Sodium 131. Potassium 4.2. BUN 53. Creatinine 1.52. Lactic acid 1.5. troponin 0.512. 1.270. 4.150. BNP 8790. * Current home cardiac medications include: medication list not updated at the time of this dictation * Most recent echocardiogram obtained in August 2019 revealed ejection fraction 55%, [id number] mitral regurgitation, mild tricuspid regurgitation * Cardiac catheterization history: 2016 revealing severe left main coronary mindy ry disease. Occluded RCA. MEZA to LAD patent. Saphenous vein graft to diagonal was patent. Saphenous vein graft to left circumflex appears to be occluded. The patient underwent PCI to the left circumflex. REVIEW OF SYSTEMS: At the time of my exam: CONSTITUTIONAL: Denies fever or chills. HEENT: Denies blurred vision, vision changes, or eye pain. Denies hemoptysis CARDIOVASCULAR: Denies chest pain. Denies orthopnea. Denies PND. Denies palpitations RESPIRATORY: Denies shortness of breath. GASTROINTESTINAL: Denies abdominal pain. Denies nausea or vomiting. HEMATOLOGIC: Denies bleeding disorders. GENITOURINARY: Denies any blood in urine. SKIN: Denies pruitis. Denies rash. PHYSICAL EXAM: VITAL SIGNS: Reviewed. GENERAL: Well-developed in no acute distress. HEENT: Head is normocephalic. Pupils are equal, round. Sclerae anicteric. Mucous membranes of the mouth are moist. Neck supple. No JVD or thyromegaly LUNGS: Respirations even and unlabored. Lungs diminished to auscultation bilaterally. HEART: Regular rate and rhythm. S1 and S2 heard. ABDOMEN: Soft. Nondistended. Nontender. EXTREMITIES: Normal range of motion. No clubbing or cyanosis. Peripheral pulses intact. Trace lower extremity edema with chronic discoloration and venous wounds NEUROLOGIC: Awake and alert. Oriented x 3. ASSESSMENT: Urinary tract infection Leukocytosis Abnormal troponins, may be secondary to infectious process, cannot rule out non- STEMI Coronary artery disease with previous CABG and PCI Chronic kidney disease Hypertension Hyperlipidemia Diabetes History of TIA Hypothyroidism PLAN: Obtain 2D echo to assess cardiac structure and function Begin IV heparin Begin aspirin, lipitor, and coreg Resume additional home cardiac medications when medication reconciliation is completed Continue with treatment of UTI NPO at midnight Repeat EKG in AM Will re-evaluate patient tomorrow to determine if patient will require a cardiac cath Further recommendations pending patient course Nurse practitioner note has been reviewed by physician. Signing provider agrees with the documented findings, assessment, and plan of care. Past Medical History Past Medical History: Coronary Artery Disease (CAD), Chest Pain / Angina, CVA/TIA, Diabetes Mellitus, Hypertension, Myocardial Infarction ([place]), Renal Disease, Vascular Disorder Additional Past Medical History / Comment(s): Pt recently admitted to [facility] on 05/14/21 with generalized weakness/UTI/Klebsiella/abnormal potassium levels. Other hx: Urinary retention requiring self-catheterization, pt thinks possible from effects from stroke as well as L arm/leg weakness, IDDM type II, bilateral neuropathy of hands and feet, PVD, [place] - 04/09/16, diabetic nephropathy CKD stage III/IV, normocytic anemia, UTIs Last Myocardial Infarction Date:: 2016 History of Any Multi-Drug Resistant Organisms: None Reported Past Surgical History: Coronary Bypass/CABG, Heart Catheterization, Heart Catheterization With Stent Additional Past Surgical History / Comment(s): 5 VESSEL BYPASS 2006, stent RT leg , arthrectomy/stent March 2016, bilateral cataract removal with lens implants Past Anesthesia/Blood Transfusion Reactions: No Reported Reaction Date of Last Stent Placement:: 2016 Past Psychological History: No Psychological Hx Reported Smoking Status: Former smoker - Past Family History Brother(s) Family Medical History: Myocardial Infarction ([place]) Mother Family Medical History: Diabetes Mellitus Additional Family Medical History / Comment(s): AT AGE 93 Father Family Medical History: Myocardial Infarction ([place]) Additional Family Medical History / Comment(s): AT AGE 83 FROM [place]. Medications and Allergies Home Medications Medication Instructions Recorded Confirmed Type Clopidogrel [Plavix] 75 mg PO DAILY #30 tab 11/20/15 05/17/21 Rx Isosorbide Mononitrate ER [Imdur] 30 mg PO DAILY #30 tab.er.24h 11/20/15 05/17/21 Rx Furosemide [Lasix] 40 mg PO DAILY 04/10/16 05/17/21 History amLODIPine [Norvasc] 10 mg PO DAILY #30 tab 04/17/16 05/17/21 Rx Atorvastatin [Lipitor] 40 mg PO HS 05/09/21 05/17/21 History Insulin Aspart Protam & Aspart 10 unit SQ DAILY 05/09/21 05/17/21 History [NovoLOG MIX 70-30 Flexpen] Insulin Aspart Protam & Aspart 12 unit SQ HS 05/09/21 05/17/21 History [NovoLOG MIX 70-30 Flexpen] Insulin Aspart Protam & Aspart See Protocol SQ HS 05/09/21 05/17/21 History [NovoLOG MIX 70-30 Flexpen] Levothyroxine Sodium [Synthroid] 50 mcg PO AC-BRKFST 05/09/21 05/17/21 History carvediloL [Coreg] 6.25 mg PO BID-W/MEALS 05/09/21 05/17/21 History Acetaminophen Tab [Tylenol] 650 mg PO Q6HR PRN tab 05/11/21 05/17/21 Rx lisinopriL [Zestril] 5 mg PO DAILY 05/14/21 05/17/21 History Ascorbic Acid [Vitamin C] 500 mg PO BID tab 05/21/21 Rx Cholecalciferol [Vitamin D3 (25 50 mcg PO DAILY tablet 05/21/21 Rx Mcg = 1000 Iu)] Dexamethasone [Decadron] 6 mg PO DAILY #7 tablet 05/21/21 Rx INSULIN LISPRO (HumaLOG) [humaLOG] 0 unit SQ ACHS #10 ml 05/21/21 Rx Pantoprazole [Protonix] 40 mg PO AC-BRKFST tab 05/21/21 Rx Zinc Sulfate [Orazinc] 220 mg PO DAILY cap 05/21/21 Rx traMADol HCl [Ultram] 50 mg PO TID PRN #9 tab 05/21/21 Rx Allergies Allergy/AdvReac Type Severity Reaction Status Date / Time Iodinated Contrast Media Allergy Rash/Hives Verified 06/07/21 09:53 Physical Exam Vitals: Vital Signs Temp Pulse Resp BP Pulse Ox 06/07/21 10:27 78 18 135/59 97 06/07/21 06:04 82 18 116/60 95 06/07/21 05:30 90 18 119/57 95 06/07/21 03:43 80 18 125/51 97 06/07/21 01:52 99.4 F 91 18 120/53 94 L 06/07/21 01:45 99.4 F 90 18 120/53 94 L Intake and Output 06/06/21 06/07/21 06/07/21 22:59 06:59 14:59 Other: Weight 72.575 kg Results 06/07/21 02:06 06/07/21 02:06 Cardiac Enzymes 06/07/21 06/07/21 06/07/21 Range/Units 02:06 02:06 04:55 AST 25 (17-59) U/L Troponin I 0.512 H* 1.270 H* (0.000-0.034) ng/mL 06/07/21 Range/Units 07:31 AST (17-59) U/L Troponin I 4.150 H* (0.000-0.034) ng/mL Coagulation 06/07/21 Range/Units 02:06 PT 11.1 (9.0-12.0) sec APTT 23.7 (22.0-30.0) sec CBC 06/07/21 Range/Units 02:06 WBC 16.2 H (3.8-10.6) k/uL RBC 3.90 L (4.30-5.90) m/uL Hgb 10.9 L (13.0-17.5) gm/dL Hct 33.0 L (39.0-53.0) % Plt Count 127 L (150-450) k/uL Comprehensive Metabolic Panel 06/07/21 Range/Units 02:06 Sodium 131 L (137-145) mmol/L Potassium 4.2 (3.5-5.1) mmol/L Chloride 100 (98-107) mmol/L Carbon Dioxide 26 (22-30) mmol/L BUN 53 H (9-20) mg/dL Creatinine 1.52 H (0.66-1.25) mg/dL Glucose 318 H (74-99) mg/dL Calcium 8.2 L (8.4-10.2) mg/dL AST 25 (17-59) U/L ALT 20 (4-49) U/L Alkaline Phosphatase 107 (38-126) U/L Total Protein 5.4 L (6.3-8.2) g/dL Albumin 2.7 L (3.5-5.0) g/dL Current Medications Generic Name Dose Route Start Last Admin Trade Name Freq PRN Reason Stop Dose Admin Aspirin 81 mg 06/07/21 09:45 06/07/21 10:26 Aspirin 81 Mg PO 81 mg DAILY [facility] Administration Atorvastatin Calcium 80 mg 06/07/21 21:00 Atorvastatin 80 Mg Tab PO HS KODY Carvedilol 3.125 mg 06/07/21 09:45 06/07/21 10:26 Carvedilol 3.125 Mg Tab PO 3.125 mg BID-W/MEALS [facility] Administration Heparin Sodium (Porcine) 0 unit 06/07/21 09:41 Heparin Sodium 1,000 Un/Ml (10ml Vl) IV PER PROTOCOL PRN Low PTT Protocol Sodium Chloride 1,000 mls @ 130 mls/hr 06/07/21 03:45 06/07/21 05:33 Saline 0.9% IV Not Given .[id number] [facility] Heparin Sodium/Sodium Chloride 250 mls @ 8.709 mls/hr 06/07/21 09:45 06/07/21 10:17 25,000 unit/ Sodium Chloride IV 12 units/kg/hr .Q24H KODY 8.709 mls/hr Administration Protocol 12 UNITS/KG/HR Lorazepam 0.5 mg 06/07/21 03:35 Lorazepam 2 Mg/Ml Inj IV Q6HR PRN Anxiety Morphine Sulfate 4 mg 06/07/21 03:35 06/07/21 10:22 Morphine Sulfate 4 Mg/Ml Syringe IV 4 mg Q4HR PRN Administration Severe Pain Naloxone HCl 0.2 mg 06/07/21 03:35 Naloxone 0.4 Mg/Ml 1 Ml Vial IV Q2M PRN Opioid Reversal Ondansetron HCl 4 mg 06/07/21 03:35 Ondansetron 4 Mg/2 Ml Vial IVP Q8HR PRN Nausea And Vomiting Pantoprazole Sodium 40 mg 06/07/21 09:00 06/07/21 10:21 Pantoprazole 40 Mg/10 Ml Vial IVP 40 mg DAILY KODY Administration Intake and Output 06/06/21 06/07/21 06/07/21 22:59 06:59 14:59 Other: Weight 72.575 kg 06/07/21 02:06 06/07/21 02:06
[2021-06-07 15:29] LABS: Chol/HDL Ratio 2.39 Ratio; LDL Cholesterol,Calculated 37.9 mg/dL (0.0-131.0)
--- NOTE | 2021-06-07 15:37 | P.HPIM ---
History of Present Illness H&P Date: 06/07/21 Chief Complaint: Chest pain, increasing weakness This is an 85-year-old gentleman with past medical history of covid (05/11), CAD,[place], CABG, CVA, chronic urinary retention with self-catheterization , recurrent UTIs -history of Klebsiella, chronic kidney disease stage IV, chronic anemia diabetes mellitus, chronic neuropathy in hands and feet, hypertension, hyperlipidemia, peripheral vascular disease and multiple other medical issues presented to the ER with increasing generalized weakness accompanied by shortness of breath, occasional intermittent chest pain. Denies fever or chills. Denies cough or congestion. Denies nausea vomiting or diarrhea. Denies abdominal pain. Currently denies chest pain, palpitations. Denies lightheadedness dizziness or focal deficits. Reports she did well in rehab 2 weeks, returned home, progressive weakness and sustained another fall.Troponin 0.512, 1.270, 4.150. EKG reported sinus with right bundle branch block. ProBNP 8790. Chest x-ray reported no acute cardiopulmonary disease, clearing of mild pulmonary interstitial infiltrate in the lower lung bernal compared to prior exam.T-max 99.4, WBC 16.2. Sodium 131 BUN 53, creatinine 1.52 ( baseline creatinine 1.5), glucose 318. UA reported moderate bacteria, few WBC clumps, 122 WBCs, large leukocyte esterase, negative for nitrates with 3+ glucose. Review of Systems ROS Statement: Those systems with pertinent positive or pertinent negative responses have been documented in the HPI. ROS Other: All systems not noted in ROS Statement are negative. Past Medical History Past Medical History: Coronary Artery Disease (CAD), Chest Pain / Angina, CVA/TIA, Diabetes Mellitus, Hypertension, Myocardial Infarction ([place]), Renal Disease, Vascular Disorder Additional Past Medical History / Comment(s): Pt recently admitted to [facility] on 05/14/21 with generalized weakness/UTI/Klebsiella/abnormal potassium levels. Other hx: Urinary retention requiring self-catheterization, pt thinks possible from effects from stroke as well as L arm/leg weakness, IDDM type II, bilateral neuropathy of hands and feet, PVD, [place] - 04/09/16, diabetic nephropathy CKD stage III/IV, normocytic anemia, UTIs Last Myocardial Infarction Date:: 2016 History of Any Multi-Drug Resistant Organisms: None Reported Past Surgical History: Coronary Bypass/CABG, Heart Catheterization, Heart Catheterization With Stent Additional Past Surgical History / Comment(s): 5 VESSEL BYPASS 2006, stent RT leg , arthrectomy/stent March 2016, bilateral cataract removal with lens implants Past Anesthesia/Blood Transfusion Reactions: No Reported Reaction Date of Last Stent Placement:: 2016 Past Psychological History: No Psychological Hx Reported Smoking Status: Former smoker - Past Family History Brother(s) Family Medical History: Myocardial Infarction ([place]) Mother Family Medical History: Diabetes Mellitus Additional Family Medical History / Comment(s): AT AGE 93 Father Family Medical History: Myocardial Infarction ([place]) Additional Family Medical History / Comment(s): AT AGE 83 FROM [place]. Medications and Allergies Home Medications Medication Instructions Recorded Confirmed Type Clopidogrel [Plavix] 75 mg PO DAILY #30 tab 11/20/15 06/07/21 Rx Isosorbide Mononitrate ER [Imdur] 30 mg PO DAILY #30 tab.er.24h 11/20/15 06/07/21 Rx Furosemide [Lasix] 40 mg PO DAILY 04/10/16 06/07/21 History amLODIPine [Norvasc] 10 mg PO DAILY #30 tab 04/17/16 06/07/21 Rx Atorvastatin [Lipitor] 40 mg PO HS 05/09/21 06/07/21 History Insulin Aspart Protam & Aspart 10 unit SQ DAILY 05/09/21 06/07/21 History [NovoLOG MIX 70-30 Flexpen] Insulin Aspart Protam & Aspart 12 unit SQ HS 05/09/21 06/07/21 History [NovoLOG MIX 70-30 Flexpen] Insulin Aspart Protam & Aspart See Protocol SQ HS 05/09/21 06/07/21 History [NovoLOG MIX 70-30 Flexpen] Levothyroxine Sodium [Synthroid] 50 mcg PO AC-BRKFST 05/09/21 06/07/21 History carvediloL [Coreg] 6.25 mg PO BID-W/MEALS 05/09/21 06/07/21 History Acetaminophen Tab [Tylenol] 650 mg PO Q6HR PRN tab 05/11/21 06/07/21 Rx lisinopriL [Zestril] 5 mg PO DAILY 05/14/21 06/07/21 History Ascorbic Acid [Vitamin C] 500 mg PO BID tab 05/21/21 06/07/21 Rx Cholecalciferol [Vitamin D3 (25 50 mcg PO DAILY tablet 05/21/21 06/07/21 Rx Mcg = 1000 Iu)] Pantoprazole [Protonix] 40 mg PO AC-BRKFST tab 05/21/21 06/07/21 Rx Zinc Sulfate [Orazinc] 220 mg PO DAILY cap 05/21/21 06/07/21 Rx traMADol HCl [Ultram] 50 mg PO TID PRN #9 tab 05/21/21 06/07/21 Rx Allergies Allergy/AdvReac Type Severity Reaction Status Date / Time Iodinated Contrast Media Allergy Rash/Hives Verified 06/07/21 09:53 Physical Exam Vitals: Vital Signs Temp Pulse Resp BP Pulse Ox 06/07/21 10:27 78 18 135/59 97 06/07/21 06:04 82 18 116/60 95 06/07/21 05:30 90 18 119/57 95 06/07/21 03:43 80 18 125/51 97 06/07/21 01:52 99.4 F 91 18 120/53 94 L 06/07/21 01:45 99.4 F 90 18 120/53 94 L Intake and Output 06/06/21 06/07/21 06/07/21 22:59 06:59 14:59 Other: Weight 72.575 kg 72.575 kg PHYSICAL EXAM: VITAL SIGNS: As above GENERAL: Sitting up in bed, no acute distress HEENT: Conjunctivae normal. eyes normal. Oral mucosa moist NECK: No JVD. No thyroid enlargement. No LNs CARDIOVASCULAR: S1, S2 regular. Systolic murmur RESPIRATION: Breath sounds diminished in the bases. No rhonchi or crackles. No bronchial breathing. ABDOMEN: Soft, nontender.No guarding. no masses palpable. No rebound, rigidity, guarding .Bowel sounds heard. LEGS: Claudication of bilateral lower extremities with trace edema. Diminished pulses. PSYCHIATRY: Alert and oriented X3, mood and affect normal. NERVOUS SYSTEM: Cranial N 2-12 grossly normal. Diffuse weakness, No focal deficits. Strength and sensation grossly intact. Skin: Warm and dry, no rash Results CBC & Chem 7: 06/07/21 02:06 06/07/21 02:06 Labs: Abnormal Lab Results - Last 24 Hours (Table) 06/07/21 06/07/21 06/07/21 Range/Units 02:06 02:06 02:06 WBC 16.2 H (3.8-10.6) k/uL RBC 3.90 L (4.30-5.90) m/uL Hgb 10.9 L (13.0-17.5) gm/dL Hct 33.0 L (39.0-53.0) % Plt Count 127 L (150-450) k/uL Neutrophils # 15.0 H (1.3-7.7) k/uL Lymphocytes # 0.6 L (1.0-4.8) k/uL Sodium 131 L (137-145) mmol/L BUN 53 H (9-20) mg/dL Creatinine 1.52 H (0.66-1.25) mg/dL Glucose 318 H (74-99) mg/dL Calcium 8.2 L (8.4-10.2) mg/dL Troponin I 0.512 H* (0.000-0.034) ng/mL Total Protein 5.4 L (6.3-8.2) g/dL Albumin 2.7 L (3.5-5.0) g/dL Urine Protein (Negative) Urine Glucose (UA) (Negative) Ur Leukocyte Esterase (Negative) Urine RBC (0-5) /hpf Urine WBC (0-5) /hpf Urine WBC Clumps (None) /hpf Urine Bacteria (None) /hpf Urine Mucus (None) /hpf 06/07/21 06/07/21 06/07/21 Range/Units 03:04 04:55 07:31 WBC (3.8-10.6) k/uL RBC (4.30-5.90) m/uL Hgb (13.0-17.5) gm/dL Hct (39.0-53.0) % Plt Count (150-450) k/uL Neutrophils # (1.3-7.7) k/uL Lymphocytes # (1.0-4.8) k/uL Sodium (137-145) mmol/L BUN (9-20) mg/dL Creatinine (0.66-1.25) mg/dL Glucose (74-99) mg/dL Calcium (8.4-10.2) mg/dL Troponin I 1.270 H* 4.150 H* (0.000-0.034) ng/mL Total Protein (6.3-8.2) g/dL Albumin (3.5-5.0) g/dL Urine Protein 3+ H (Negative) Urine Glucose (UA) 3+ H (Negative) Ur Leukocyte Esterase Large H (Negative) Urine RBC 25 H (0-5) /hpf Urine WBC 122 H (0-5) /hpf Urine WBC Clumps Few H (None) /hpf Urine Bacteria Moderate H (None) /hpf Urine Mucus Occasional H (None) /hpf Microbiology - Last 24 Hours (Table) 06/07/21 03:04 Urine Culture - Preliminary Urine,Voided Thrombosis Risk Factor Assmnt - Choose All That Apply Any of the Below Risk Factors Present?: Yes Each Factor Represents 1 point: Obesity (BMI >25) Other Risk Factors: Yes Each Risk Factor Represents 3 Points: Age 75 years or older Other congenital or acquired thrombophilia - If yes, enter type in comment: No Thrombosis Risk Factor Assessment Total Risk Factor Score: 4 Thrombosis Risk Factor Assessment Level: Moderate Risk Assessment and Plan Assessment: Progressive generalized weakness, status post fall in a patient with history of falls, recently completed 2 weeks of rehab. Elevated troponins, with vague complaints of chest pain.Possible NSTEMI, Cardiology following Possible acute UTI in a patient with history of urinary retention with chronic urinary retention,self caths 5 times a day, cx pending. Leukocytosis secondary to the above Diabetes mellitus II, hyperglycemic Chronic kidney disease, stage IV, baseline 1.5 Abnormal troponin, secondary to the above, decreased from recent admission Hyponatremia Recent COVID-19 infection CAD with history of [place], CABG Hypertension Diabetic neuropathy History of CVA Plan: Continue on current medication regime ,monitoring and symptomatic treatment. Empiric antibiotics for possible acute UTI, cultures pending. NovoLog sliding scale with adjusted long-acting insulin dose to accomodate NPO status at midnight for potential cardiac cath. as per cardiology. Anticoagulated on IV heparin, maintained on beta jaylyn, statin, aspirin. Echo pending. The impression and plan of care has been dictated as directed. : I performed a history and examination of this patient, discussed the same with the dictator. I agree with the dictator's note ,documented as a scribe. Any additional findings or plans will be noted.
[2021-06-07] MEDS: CHOLECALCIFEROL 25 MCG (1000 IU) TABLET PO SCH (16:28)
[2021-06-07] MEDS: LEVOTHYROXINE 50 MCG TAB PO SCH (16:29)
[2021-06-07] MEDS: ZINC SULFATE 220 MG CAP PO SCH (16:29)
[2021-06-07] MEDS: ACETAMINOPHEN TAB 325 MG TAB PO PRN (17:11)
[2021-06-07 17:16] LABS: Glucose,Whole Blood 265 mg/dL (75-99)
[2021-06-07] MEDS: INSULIN ASPART (NovoLOG) 100 UNIT/ML VIAL SQ SCH ×2 (18:55→21:12)
[2021-06-07] MEDS: INSULIN DETEMIR (LEVEMIR) 100 UNIT/ML SYR SQ SCH (18:56)
[2021-06-07 20:08] LABS: Glucose,Whole Blood 223 mg/dL (75-99)
[2021-06-07] MEDS: ATORVASTATIN 80 MG TAB PO SCH (21:11)
[2021-06-07] MEDS: ASCORBIC ACID 500 MG TAB PO SCH (21:12)
[2021-06-08] MEDS: HEPARIN SOD,PORK IN 0.45% NACL 25,000 UNIT in 0.45% NACL 1 250ML.BAG IV SCH (04:28)
[2021-06-08 06:11] LABS: Glucose,Whole Blood 53 mg/dL (75-99)
[2021-06-08 06:29] LABS: Glucose,Whole Blood 56 mg/dL (75-99)
[2021-06-08] MEDS: INSULIN ASPART (NovoLOG) 100 UNIT/ML VIAL SQ SCH ×4 (06:32→20:22)
[2021-06-08] MEDS: carvediloL 3.125 MG TAB PO SCH ×2 (06:36→15:39)
[2021-06-08] MEDS: LEVOTHYROXINE 50 MCG TAB PO SCH (06:36)
[2021-06-08 06:48] LABS: Glucose,Whole Blood 65 mg/dL (75-99)
[2021-06-08] MEDS: INSULIN DETEMIR (LEVEMIR) 100 UNIT/ML SYR SQ SCH (06:54)
[2021-06-08 07:04] LABS: Glucose,Whole Blood 88 mg/dL (75-99)
[2021-06-08 07:58] LABS: Basophils # (A) 0.3 k/uL (0-0.2); Basophils % (A) 1 %; Eosinophils % (A) 0 %; HCT 33.8 % (39.0-53.0); HGB 10.7 gm/dL (13.0-17.5); Hypochromasia Slight; Lymphocytes # (A) 0.5 k/uL (1.0-4.8); Lymphocytes % (A) 3 %; MCH 27.9 pg (25.0-35.0); MCHC 31.7 g/dL (31.0-37.0); Mean Platelet Volume 7.9; Monocytes # (A) 0.5 k/uL (0-1.0); Monocytes % (A) 2 %; Neutrophils # (A) 20.2 k/uL (1.3-7.7); Neutrophils % (A) 93 %; Platelet Count 128 k/uL (150-450); RBC 3.84 m/uL (4.30-5.90); RDW 15.6 % (11.5-15.5); WBC 21.7 k/uL (3.8-10.6)
[2021-06-08 08:09] LABS: Partial Thromboplastin Time 38.7 sec (22.0-30.0)
[2021-06-08 08:14] LABS: Albumin 2.5 g/dL (3.5-5.0); Magnesium 2.1 mg/dL (1.6-2.3); Phosphorus 2.6 mg/dL (2.5-4.5); Potassium 4.2 mmol/L (3.5-5.1); Total Bilirubin 0.9 mg/dL (0.2-1.3); Total Protein 5.5 g/dL (6.3-8.2)
[2021-06-08] MEDS: ASPIRIN 81 MG PO SCH (09:35)
[2021-06-08] MEDS: SODIUM CHLORIDE 0.9% 1,000 ML IV SCH (09:35)
[2021-06-08] MEDS: CHOLECALCIFEROL 25 MCG (1000 IU) TABLET PO SCH (09:35)
[2021-06-08] MEDS: ZINC SULFATE 220 MG CAP PO SCH (09:35)
[2021-06-08] MEDS: ASCORBIC ACID 500 MG TAB PO SCH ×2 (09:35→20:24)
[2021-06-08] MEDS: PANTOPRAZOLE 40 MG/10 ML VIAL IVP SCH (09:35)
[2021-06-08] MEDS: HEPARIN SODIUM 1,000 UN/ML (10ML VL) IV PRN ×2 (09:51→18:38)
--- NOTE | 2021-06-08 10:29 | P.PN ---
Subjective Progress Note Date: 06/08/21 HISTORY OF PRESENT ILLNESS: This is a 85-year-old male with a past medical history significant for coronary artery disease with previous CABG and PCI, diabetes, hypertension, hyperli pidemia, TIA, and hypothyroidism. Patient follows in the office with Dr. Garcias. We have been asked to see the patient in consultation for abnormal troponins. Patient examined at the bedside. The patient presented to the hospital with generalized weakness and symptoms of a urinary tract infection. The patient denies having any chest pain or pressure. No shortness of breath. No nausea or vomiting. Denies dizziness or lightheadedness. The patient does report tenderness to his bilateral lower extremities. * EKG reveals sinus mechanism with right bundle branch block * Chest xray no active cardiopulmonary disease. There is clearing of mild pulmonary interstitial infiltrates in the lower lung field compared to old exam. * Laboratory data: WBC 16.2. Hemoglobin 10.9. Platelet count 127. Sodium 131. Potassium 4.2. BUN 53. Creatinine 1.52. Lactic acid 1.5. troponin 0.512. 1.270. 4.150. BNP 8790. * Current home cardiac medications include: medication list not updated at the time of this dictation * Most recent echocardiogram obtained in August 2019 revealed ejection fraction 55%, [id number]-gu-opvntein mitral regurgitation, mild tricuspid regurgitation * Cardiac catheterization history: 2016 revealing severe left main coronary artery disease. Occluded RCA. MEZA to LAD patent. Saphenous vein graft to diagonal was patent. Saphenous vein graft to left circumflex appears to be occluded. The patient underwent PCI to the left circumflex. 06/08/2021 Patient examined this morning at the bedside. He denies chest pain or pressure. He denies SOB. WBC increased to 21 today. Echo reveals ejection fraction 45-50%, basal posterior LV wall hypokinesis, mid posterior LV wall hypokinesis, yopu-ch-hbmebhwm mitral regurgitation, mild tricuspid regurgitation, and moderate pulmonary hypertension PHYSICAL EXAM: VITAL SIGNS: Reviewed. GENERAL: Well-developed in no acute distress. HEENT: Head is normocephalic. Pupils are equal, round. Sclerae anicteric. Mucous membranes of the mouth are moist. Neck supple. No JVD or thyromegaly LUNGS: Respirations even and unlabored. Lungs diminished to auscultation bilaterally. HEART: Regular rate and rhythm. S1 and S2 heard. ABDOMEN: Soft. Nondistended. Nontender. EXTREMITIES: Normal range of motion. No clubbing or cyanosis. Peripheral pulses intact. Trace lower extremity edema with chronic discoloration and venous wounds NEUROLOGIC: Awake and alert. Oriented x 3. ASSESSMENT: Urinary tract infection Leukocytosis Abnormal troponins, may be secondary to infectious process, cannot rule out non- STEMI Coronary artery disease with previous CABG and PCI Chronic kidney disease Hypertension Hyperlipidemia Diabetes History of TIA Hypothyroidism PLAN: Continue current cardiac medications Add Plavix 75mg daily Continue IV heparin for an additional 24 hours Continue with conservative management at this time Treatment of UTI per internal medicine Further recommendations pending patient course Nurse practitioner note has been reviewed by physician. Signing provider agrees with the documented findings, assessment, and plan of care. Objective - Vital Signs Vital signs: Vital Signs Temp 99.1 F 06/08/21 09:33 Pulse 86 06/08/21 09:33 Resp 17 06/08/21 09:33 BP 111/69 06/08/21 09:33 Pulse Ox 94 L 06/08/21 09:33 Intake & Output 06/07/21 06/08/21 06/08/21 18:59 06:59 18:59 Intake Total 498.359 47.029 Output Total 300 Balance 198.359 47.029 Weight 72.575 kg 72 kg Intake: Intake, IV Titration 498.359 47.029 Amount Heparin Sod,Pork in 0.45% 198.359 47.029 NaCl 25,000 unit In 0.45 % NaCl 1 250ml.bag @ 12 UNITS/KG/HR 8.709 mls/hr IV .Q24H [facility] Rx#: [id number] Sodium Chloride 0.9% 1, 300 000 ml @ 60 mls/hr IV . [id number] [facility] Rx#:[id number] Output: Urine 300 Other: Voiding Method Indwelling Catheter Indwelling Catheter - Labs CBC & Chem 7: 06/08/21 06:56 06/08/21 06:56 Labs: Abnormal Lab Results - Last 24 Hours (Table) 06/07/21 06/07/21 06/07/21 Range/Units 04:55 15:48 17:15 WBC (3.8-10.6) k/uL RBC (4.30-5.90) m/uL Hgb (13.0-17.5) gm/dL Hct (39.0-53.0) % RDW (11.5-15.5) % Plt Count (150-450) k/uL Neutrophils # (1.3-7.7) k/uL Lymphocytes # (1.0-4.8) k/uL Basophils # (0-0.2) k/uL APTT 44.3 H (22.0-30.0) sec Chloride (98-107) mmol/L BUN (9-20) mg/dL Creatinine (0.66-1.25) mg/dL POC Glucose (mg/dL) 265 H (75-99) mg/dL Calcium (8.4-10.2) mg/dL AST (17-59) U/L Troponin I 1.270 H* (0.000-0.034) ng/mL Total Protein (6.3-8.2) g/dL Albumin (3.5-5.0) g/dL 06/07/21 06/08/21 06/08/21 Range/Units 20:07 06:10 06:27 WBC (3.8-10.6) k/uL RBC (4.30-5.90) m/uL Hgb (13.0-17.5) gm/dL Hct (39.0-53.0) % RDW (11.5-15.5) % Plt Count (150-450) k/uL Neutrophils # (1.3-7.7) k/uL Lymphocytes # (1.0-4.8) k/uL Basophils # (0-0.2) k/uL APTT (22.0-30.0) sec Chloride (98-107) mmol/L BUN (9-20) mg/dL Creatinine (0.66-1.25) mg/dL POC Glucose (mg/dL) 223 H 53 L 56 L (75-99) mg/dL Calcium (8.4-10.2) mg/dL AST (17-59) U/L Troponin I (0.000-0.034) ng/mL Total Protein (6.3-8.2) g/dL Albumin (3.5-5.0) g/dL 06/08/21 06/08/21 06/08/21 Range/Units 06:46 06:56 06:56 WBC 21.7 H (3.8-10.6) k/uL RBC 3.84 L (4.30-5.90) m/uL Hgb 10.7 L (13.0-17.5) gm/dL Hct 33.8 L (39.0-53.0) % RDW 15.6 H (11.5-15.5) % Plt Count 128 L (150-450) k/uL Neutrophils # 20.2 H (1.3-7.7) k/uL Lymphocytes # 0.5 L (1.0-4.8) k/uL Basophils # 0.3 H (0-0.2) k/uL APTT (22.0-30.0) sec Chloride 108 H (98-107) mmol/L BUN 44 H (9-20) mg/dL Creatinine 1.59 H (0.66-1.25) mg/dL POC Glucose (mg/dL) 65 L (75-99) mg/dL Calcium 8.0 L (8.4-10.2) mg/dL AST 72 H (17-59) U/L Troponin I (0.000-0.034) ng/mL Total Protein 5.5 L (6.3-8.2) g/dL Albumin 2.5 L (3.5-5.0) g/dL 06/08/21 Range/Units 06:56 WBC (3.8-10.6) k/uL RBC (4.30-5.90) m/uL Hgb (13.0-17.5) gm/dL Hct (39.0-53.0) % RDW (11.5-15.5) % Plt Count (150-450) k/uL Neutrophils # (1.3-7.7) k/uL Lymphocytes # (1.0-4.8) k/uL Basophils # (0-0.2) k/uL APTT 38.7 H (22.0-30.0) sec Chloride (98-107) mmol/L BUN (9-20) mg/dL Creatinine (0.66-1.25) mg/dL POC Glucose (mg/dL) (75-99) mg/dL Calcium (8.4-10.2) mg/dL AST (17-59) U/L Troponin I (0.000-0.034) ng/mL Total Protein (6.3-8.2) g/dL Albumin (3.5-5.0) g/dL Microbiology - Last 24 Hours (Table) 06/07/21 03:04 Urine Culture - Preliminary Urine,Voided
[2021-06-08] MEDS: traMADol 50 MG TAB PO PRN (11:46)
[2021-06-08 11:50] LABS: Glucose,Whole Blood 249 mg/dL (75-99)
[2021-06-08] MEDS: ACETAMINOPHEN TAB 325 MG TAB PO PRN (11:54)
--- NOTE | 2021-06-08 13:00 | ECHOF ---
Referral Reason:LV function, NSTEMI MEASUREMENTS -------- HEIGHT: 162.6 cm WEIGHT: 72.6 kg BP: 116/60 RVIDd: 3.4 cm (< 3.3) IVSd: 1.2 cm (0.6 - 1.1) LVIDd: 4.5 cm (3.9 - 5.3) LVPWd: 1.2 cm (0.6 - 1.1) IVSs: 1.4 cm LVIDs: 3.8 cm LVPWs: 1.6 cm LA Diam: 3.9 cm (2.7 - 3.8) LAESV Index (A-L): 37.11 ml/m Ao Diam: 3.2 cm (2.0 - 3.7) AV Cusp: 2.1 cm (1.5 - 2.6) MV EXCURSION: 15.271 mm (> 18.000) MV EF SLOPE: 55 mm/s (70 - 150) EPSS: 1.3 cm MV E [place]: 1.10 m/s MV DecT: 90 ms MV A [place]: 1.23 m/s MV E/A Ratio: 0.89 RAP: 5.00 mmHg RVSP: 49.56 mmHg FINDINGS -------- Sinus rhythm. This was a technically good study. The left ventricular size is normal. There is borderline concentric left ventricular hypertrophy. Overall left ventricular systolic function is mildly impaired with, an EF between 45 - 50 %. Basal posterior LV wall motion is hypokinetic. Mid posterior LV wall motion is hypokinetic. Interatrial and interventricular septum intact. There is mild aortic valve sclerosis. [id number] mitral regurgitation is present. Mild tricuspid regurgitation present. There is moderate pulmonary hypertension. The right ventric ular systolic pressure, as measured by Doppler, is 49.56mmHg. Trace/mild (physiologic) pulmonic regurgitation. The aortic root size is normal. Normal inferior vena cava with normal inspiratory collapse consistent with estimated right atrial pre ssure of 5 mmHg. The inferior vena cava is mildly dilated. There is no pericardial effusion. CONCLUSIONS -------- 1. The left ventricular size is normal. 2. There is borderline concentric left ventricular hypertrophy. 3. Overall left ventricular systolic function is mildly impaired with, an EF between 45 - 50 %. 4. Basal posterior LV wall motion is hypokinetic. 5. Mid posterior LV wall motion is hypokinetic. 6. There is mild aortic valve sclerosis. 7. Zvdk-jc-qnzqwxep mitral regurgitation is present. 8. Mild tricuspid regurgitation present. 9. There is moderate pulmonary hypertension. 10. The right ventricular systolic pressure, as measured by Doppler, is 49.56mmHg. 11. Trace/mild (physiologic) pulmonic regurgitation. 12. There is no pericardial effusion. FOUNDATION DIGGER: Gertrude Parra RDCS
--- NOTE | 2021-06-08 15:32 | P.PN ---
Subjective Progress Note Date: 06/08/21 This is an 85-year-old gentleman with past medical history of covid (05/11), CAD,[place], CABG, CVA, chronic urinary retention with self-catheterization , recurrent UTIs -history of Klebsiella, chronic kidney disease stage IV, chronic anemia diabetes mellitus, chronic neuropathy in hands and feet, hypertension, hyperlipidemia, peripheral vascular disease and multiple other medical issues presented to the ER with increasing generalized weakness accompanied by shortness of breath, occasional intermittent chest pain. Denies fever or chills. Denies cough or congestion. Denies nausea vomiting or diarrhea. D enies abdominal pain. Currently denies chest pain, palpitations. Denies lightheadedness dizziness or focal deficits. Reports she did well in rehab 2 weeks, returned home, progressive weakness and sustained another fall.Troponin 0.512, 1.270, 4.150. EKG reported sinus with right bundle branch block. ProBNP 8790. Chest x-ray reported no acute cardiopulmonary disease, clearing of mild pulmonary interstitial infiltrate in the lower lung bernal compared to prior exam.T-max 99.4, WBC 16.2. Sodium 131 BUN 53, creatinine 1.52 ( baseline creatinine 1.5), glucose 318. UA reported moderate bacteria, few WBC clumps, 122 WBCs, large leukocyte esterase, negative for nitrates with 3+ glucose. 06/08/2021 Echo Reported mildly impaired LV function, EF 45-50%, hypokinetic basal and mid posterior LV wall, mild to moderate mitral regurgitation, mild tricuspid regurgitation, moderate pulmonary hypertension. Anticoagulated on heparin drip. Denies chest pain, palpitations or shortness of breath.NPO, for potential cardiac cath today as per cardiology. Continues on Rocephin, for acute UTI, culture pending. Hypoglycemic during the pot puller hours, poor appetite. T-max 100.7, blood cultures ordered. Labs pending. Objective - Vital Signs Vital signs: Vital Signs Temp 100.1 F H 06/08/21 11:43 Pulse 84 06/08/21 11:43 Resp 17 06/08/21 11:43 BP 99/58 06/08/21 11:43 Pulse Ox 90 L 06/08/21 11:43 Intake & Output 06/07/21 06/08/21 06/08/21 18:59 06:59 18:59 Intake Total 498.359 47.029 Output Total 300 Balance 198.359 47.029 Weight 72.575 kg 72 kg 72 kg Intake: Intake, IV Titration 498.359 47.029 Amount Heparin Sod,Pork in 0.45% 198.359 47.029 NaCl 25,000 unit In 0.45 % NaCl 1 250ml.bag @ 12 UNITS/KG/HR 8.709 mls/hr IV .Q24H [facility] Rx#: [id number] Sodium Chloride 0.9% 1, 300 000 ml @ 60 mls/hr IV . [id number] [facility] Rx#:[id number] Output: Urine 300 Other: Voiding Method Indwelling Catheter Indwelling Catheter - Exam PHYSICAL EXAM: VITAL SIGNS: As above GENERAL: Alert and oriented 3 ,Laying in bed, fatigued ,no acute distress HEENT: Conjunctivae normal. eyes normal. Oral mucosa moist NECK: No JVD. No LNs CARDIOVASCULAR: S1, S2 regular. Systolic murmur RESPIRATION: Breath sounds diminished in the bases. No rhonchi or crackles. No bronchial breathing. ABDOMEN: Soft, nontender.No guarding. no masses palpable. No rebound, rigidity, guarding .Bowel sounds heard. LEGS: Claudication of bilateral lower extremities with trace edema. Diminished pulses. PSYCHIATRY: Alert and oriented X3, mood and affect normal. NERVOUS SYSTEM: Cranial N 2-12 grossly normal. Diffuse weakness, No focal deficits. Strength and sensation grossly intact. Skin: Warm and dry, no rash - Labs CBC & Chem 7: 06/08/21 06:56 06/08/21 06:56 Labs: Abnormal Lab Results - Last 24 Hours (Table) 06/07/21 06/07/21 06/07/21 Range/Units 15:48 17:15 20:07 WBC (3.8-10.6) k/uL RBC (4.30-5.90) m/uL Hgb (13.0-17.5) gm/dL Hct (39.0-53.0) % RDW (11.5-15.5) % Plt Count (150-450) k/uL Neutrophils # (1.3-7.7) k/uL Lymphocytes # (1.0-4.8) k/uL Basophils # (0-0.2) k/uL APTT 44.3 H (22.0-30.0) sec Chloride (98-107) mmol/L BUN (9-20) mg/dL Creatinine (0.66-1.25) mg/dL POC Glucose (mg/dL) 265 H 223 H (75-99) mg/dL Hemoglobin A1c (0.0-6.0) % Calcium (8.4-10.2) mg/dL AST (17-59) U/L Total Protein (6.3-8.2) g/dL Albumin (3.5-5.0) g/dL 06/08/21 06/08/21 06/08/21 Range/Units 06:10 06:27 06:46 WBC (3.8-10.6) k/uL RBC (4.30-5.90) m/uL Hgb (13.0-17.5) gm/dL Hct (39.0-53.0) % RDW (11.5-15.5) % Plt Count (150-450) k/uL Neutrophils # (1.3-7.7) k/uL Lymphocytes # (1.0-4.8) k/uL Basophils # (0-0.2) k/uL APTT (22.0-30.0) sec Chloride (98-107) mmol/L BUN (9-20) mg/dL Creatinine (0.66-1.25) mg/dL POC Glucose (mg/dL) 53 L 56 L 65 L (75-99) mg/dL Hemoglobin A1c (0.0-6.0) % Calcium (8.4-10.2) mg/dL AST (17-59) U/L Total Protein (6.3-8.2) g/dL Albumin (3.5-5.0) g/dL 06/08/21 06/08/21 06/08/21 Range/Units 06:56 06:56 06:56 WBC 21.7 H (3.8-10.6) k/uL RBC 3.84 L (4.30-5.90) m/uL Hgb 10.7 L (13.0-17.5) gm/dL Hct 33.8 L (39.0-53.0) % RDW 15.6 H (11.5-15.5) % Plt Count 128 L (150-450) k/uL Neutrophils # 20.2 H (1.3-7.7) k/uL Lymphocytes # 0.5 L (1.0-4.8) k/uL Basophils # 0.3 H (0-0.2) k/uL APTT (22.0-30.0) sec Chloride 108 H (98-107) mmol/L BUN 44 H (9-20) mg/dL Creatinine 1.59 H (0.66-1.25) mg/dL POC Glucose (mg/dL) (75-99) mg/dL Hemoglobin A1c 11.1 H (0.0-6.0) % Calcium 8.0 L (8.4-10.2) mg/dL AST 72 H (17-59) U/L Total Protein 5.5 L (6.3-8.2) g/dL Albumin 2.5 L (3.5-5.0) g/dL 06/08/21 06/08/21 Range/Units 06:56 11:49 WBC (3.8-10.6) k/uL RBC (4.30-5.90) m/uL Hgb (13.0-17.5) gm/dL Hct (39.0-53.0) % RDW (11.5-15.5) % Plt Count (150-450) k/uL Neutrophils # (1.3-7.7) k/uL Lymphocytes # (1.0-4.8) k/uL Basophils # (0-0.2) k/uL APTT 38.7 H (22.0-30.0) sec Chloride (98-107) mmol/L BUN (9-20) mg/dL Creatinine (0.66-1.25) mg/dL POC Glucose (mg/dL) 249 H (75-99) mg/dL Hemoglobin A1c (0.0-6.0) % Calcium (8.4-10.2) mg/dL AST (17-59) U/L Total Protein (6.3-8.2) g/dL Albumin (3.5-5.0) g/dL Microbiology - Last 24 Hours (Table) 06/07/21 03:04 Urine Culture - Preliminary Urine,Voided Gram Neg Bacilli Assessment and Plan Assessment: Progressive generalized weakness, status post fall in a patient with history of falls, recently completed 2 weeks of rehab. Elevated troponins, with vague complaints of chest pain.Possible NSTEMI, Cardiology following Acute UTI in a patient with history of urinary retention with chronic urinary retention,self caths 5 times a day, cx pending. Fevers, with elevated WBC, blood cultures ordered, possible acute bacteremia. Leukocytosis secondary to the above Diabetes mellitus II, A1C 11.1, further diabetic teaching in clinic, outpatient Chronic kidney disease, stage IV, baseline 1.5 Abnormal troponin, secondary to the above, decreased from recent admission Hyponatremia, resolved Recent COVID-19 infection CAD with history of [place], CABG Hypertension Diabetic neuropathy History of CVA Plan: Continue on current medication regime ,monitoring and symptomatic treatment. Fevers; Labs, urine culture pending. blood Cultures ordered . Janet rubio antibiotics for UTI. Continue anticoagulation with IV heparin drip, conservative management as per cardiology. The impression and plan of care has been dictated as directed. : I performed a history and examination of this patient, discussed the same with the dictator. I agree with the dictator's note ,documented as a scribe. Any additional findings or plans will be noted.
[2021-06-08 16:30] LABS: Glucose,Whole Blood 130 mg/dL (75-99)
[2021-06-08 19:51] LABS: Glucose,Whole Blood 119 mg/dL (75-99)
[2021-06-08] MEDS: ATORVASTATIN 80 MG TAB PO SCH (20:24)
[2021-06-09] MEDS: SODIUM CHLORIDE 0.9% 1,000 ML IV SCH (04:28)
[2021-06-09 05:58] LABS: Glucose,Whole Blood 147 mg/dL (75-99)
[2021-06-09] MEDS: LEVOTHYROXINE 50 MCG TAB PO SCH (06:28)
[2021-06-09] MEDS: carvediloL 3.125 MG TAB PO SCH ×2 (06:28→17:21)
[2021-06-09] MEDS: INSULIN DETEMIR (LEVEMIR) 100 UNIT/ML SYR SQ SCH (06:28)
[2021-06-09] MEDS: HEPARIN SOD,PORK IN 0.45% NACL 25,000 UNIT in 0.45% NACL 1 250ML.BAG IV SCH (06:29)
[2021-06-09] MEDS: INSULIN ASPART (NovoLOG) 100 UNIT/ML VIAL SQ SCH ×4 (06:29→20:01)
--- NOTE | 2021-06-09 08:22 | XR ---
EXAMINATION TYPE: XR chest 1V portable DATE OF EXAM: 06/09/2021 COMPARISON: X-ray dated 06/07/2021 HISTORY: Hypoxia TECHNIQUE: Single frontal view of the chest is obtained. FINDINGS: Faint patchy opacities seen mainly in the right midlung zone with milder faint opacities in the remai nder of the midlung zones and lower lung zones suggestive of subtle pulmonary infiltration, please co rrelate clinically for underlying infection. Questionable minimal left pleural effusion. No definite pneumothorax. Sternotomy wire sutures. Aortic atherosclerotic calcifications. Slightly increased cardiac transverse diameter. IMPRESSION: Bilateral pulmonary infiltrations as described above, please correlate for pulmonary inf ection. Follow-up to resolution is advised.
[2021-06-09] MEDS ORDERED: FUROSEMIDE 10 MG/ML 4 ML VIAL IV STA (08:38)
[2021-06-09 08:50] LABS: HCT 31.9 % (39.0-53.0); HGB 9.9 gm/dL (13.0-17.5); Hypochromasia Slight; MCH 28.1 pg (25.0-35.0); MCHC 31.2 g/dL (31.0-37.0); Mean Platelet Volume 8.3; Platelet Count 120 k/uL (150-450); RBC 3.55 m/uL (4.30-5.90); RDW 15.4 % (11.5-15.5); WBC 19.8 k/uL (3.8-10.6)
[2021-06-09] MEDS ORDERED: AZITHROMYCIN 500 MG in SODIUM CHLORIDE 0.9% 250 ML IVPB SCH (09:00)
[2021-06-09 09:21] LABS: Calcium 7.5 mg/dL (8.4-10.2); Potassium 4.4 mmol/L (3.5-5.1)
--- NOTE | 2021-06-09 09:26 | P.PN ---
Subjective Progress Note Date: 06/09/21 HISTORY OF PRESENT ILLNESS: This is a 85-year-old male with a past medical history significant for coronary artery disease with previous CABG and PCI, diabetes, hypertension, hyperli pidemia, TIA, and hypothyroidism. Patient follows in the office with Dr. Garcias. We have been asked to see the patient in consultation for abnormal troponins. Patient examined at the bedside. The patient presented to the hospital with generalized weakness and symptoms of a urinary tract infection. The patient denies having any chest pain or pressure. No shortness of breath. No nausea or vomiting. Denies dizziness or lightheadedness. The patient does report tenderness to his bilateral lower extremities. * EKG reveals sinus mechanism with right bundle branch block * Chest xray no active cardiopulmonary disease. There is clearing of mild pulmonary interstitial infiltrates in the lower lung field compared to old exam. * Laboratory data: WBC 16.2. Hemoglobin 10.9. Platelet count 127. Sodium 131. Potassium 4.2. BUN 53. Creatinine 1.52. Lactic acid 1.5. troponin 0.512. 1.270. 4.150. BNP 8790. * Current home cardiac medications include: medication list not updated at the time of this dictation * Most recent echocardiogram obtained in August 2019 revealed ejection fraction 55%, [id number]-vj-[id number] mitral regurgitation, mild tricuspid regurgitation * Cardiac catheterization history: 2016 revealing severe left main coronary artery disease. Occluded RCA. MEZA to LAD patent. Saphenous vein graft to diagonal was patent. Saphenous vein graft to left circumflex appears to be occluded. The patient underwent PCI to the left circumflex. 06/08/2021 Patient examined this morning at the bedside. He denies chest pain or pressure. He denies SOB. WBC increased to 21 today. Echo reveals ejection fraction 45-50%, basal posterior LV wall hypokinesis, mid posterior LV wall hypokinesis, [id number]-be-ffchhdzv mitral regurgitation, mild tricuspid regurgitation, and moderate pulmonary hypertension 06/09/2021 Patient examined this morning at the bedside. Patient denies chest pain or pressure. He denies SOB. Patient is requiring 5L NC to maintain oxygen saturations greater than 92%. Patient was on room air on admission. He is receiving IVF at 60cc/hr. WBC 19.8. BUN 43. Creatinine 1.67. Chest x-ray obtained reveals bilateral pulmonary infiltrates with minimal left pleural e ffusion. PHYSICAL EXAM: VITAL SIGNS: Reviewed. GENERAL: Well-developed in no acute distress. HEENT: Head is normocephalic. Pupils are equal, round. Sclerae anicteric. Mucous membranes of the mouth are moist. Neck supple. No JVD or thyromegaly LUNGS: Respirations even and unlabored. Lungs diminished to auscultation bilaterally with scattered rhonchi and a few crackles at the bases. HEART: Regular rate and rhythm. S1 and S2 heard. EXTREMITIES: Normal range of motion. No clubbing or cyanosis. Peripheral pulses intact. Trace lower extremity edema with chronic discoloration and venous wounds ASSESSMENT: Urinary tract infection Leukocytosis Abnormal troponins, may be secondary to infectious process, cannot rule out non- STEMI Acute on chronic congestive heart failure with borderline/intermediate ejection fraction, 45-50% Acute hypoxic respiratory failure Coronary artery disease with previous CABG and PCI Chronic kidney disease Hypertension Hyperlipidemia Diabetes History of TIA Hypothyroidism PLAN: Continue current cardiac medications Discontinue IV heparin Give Lasix 40mg IV x 1 dose Obtain BNP Discontinue IV fluids Pulmonary consulted for evaluation Continue with conservative management at this time. No plans for cardiac cath at this time. Further recommendations pending patient course Nurse practitioner note has been reviewed by physician. Signing provider agrees with the documented findings, assessment, and plan of care. Objective - Vital Signs Vital signs: Vital Signs Temp 98.3 F 06/09/21 08:00 Pulse 79 06/09/21 08:00 Resp 18 06/09/21 08:00 BP 135/71 06/09/21 08:00 Pulse Ox 93 L 06/09/21 08:00 Intake & Output 06/08/21 06/09/21 06/09/21 18:59 06:59 18:59 Intake Total 375.938 114.062 Output Total 300 450 Balance 75.938 -335.938 Weight 72 kg Intake: Intake, IV Titration 135.938 114.062 Amount Heparin Sod,Pork in 0.45% 135.938 114.062 NaCl 25,000 unit In 0.45 % NaCl 1 250ml.bag @ 12 UNITS/KG/HR 8.709 mls/hr IV .Q24H [facility] Rx#: [id number] Oral 240 Output: Urine 300 450 Other: Voiding Method Indwelling Catheter Indwelling Catheter - Labs CBC & Chem 7: 06/09/21 07:49 06/08/21 06:56 Labs: Abnormal Lab Results - Last 24 Hours (Table) 06/08/21 06/08/21 06/08/21 Range/Units 06:56 11:49 16:28 WBC (3.8-10.6) k/uL RBC (4.30-5.90) m/uL Hgb (13.0-17.5) gm/dL Hct (39.0-53.0) % Plt Count (150-450) k/uL APTT (22.0-30.0) sec POC Glucose (mg/dL) 249 H 130 H (75-99) mg/dL Hemoglobin A1c 11.1 H (0.0-6.0) % 06/08/21 06/08/21 06/09/21 Range/Units 17:31 19:49 00:55 WBC (3.8-10.6) k/uL RBC (4.30-5.90) m/uL Hgb (13.0-17.5) gm/dL Hct (39.0-53.0) % Plt Count (150-450) k/uL APTT 41.0 H 51.6 H (22.0-30.0) sec POC Glucose (mg/dL) 119 H (75-99) mg/dL Hemoglobin A1c (0.0-6.0) % 06/09/21 06/09/21 Range/Units 05:56 07:49 WBC 19.8 H (3.8-10.6) k/uL RBC 3.55 L (4.30-5.90) m/uL Hgb 9.9 L (13.0-17.5) gm/dL Hct 31.9 L (39.0-53.0) % Plt Count 120 L (150-450) k/uL APTT (22.0-30.0) sec POC Glucose (mg/dL) 147 H (75-99) mg/dL Hemoglobin A1c (0.0-6.0) % Microbiology - Last 24 Hours (Table) 06/07/21 03:04 Urine Culture - Preliminary Urine,Voided Gram Neg Bacilli
[2021-06-09] MEDS: CLOPIDOGREL 75 MG TAB PO SCH (09:43)
[2021-06-09] MEDS: ASCORBIC ACID 500 MG TAB PO SCH ×2 (09:43→19:53)
[2021-06-09] MEDS: PANTOPRAZOLE 40 MG/10 ML VIAL IVP SCH (09:43)
[2021-06-09] MEDS: CHOLECALCIFEROL 25 MCG (1000 IU) TABLET PO SCH (09:43)
[2021-06-09] MEDS: ZINC SULFATE 220 MG CAP PO SCH (09:43)
[2021-06-09] MEDS: ASPIRIN 81 MG PO SCH (09:43)
[2021-06-09] MEDS: traMADol 50 MG TAB PO PRN ×2 (09:45→17:45)
--- NOTE | 2021-06-09 10:22 | P.CNPUL ---
History of Present Illness Consult date: 06/09/21 Requesting physician: Fred Duff Reason for consult: dyspnea, hypoxemia, abnormal CXR/CT Chief complaint: Generalized weakness, altered mental status History of present illness: At this and 85-year-old male patient who follows with Dr. Duff as his primary care provider. He has a history of hyper-lipidemia, hypothyroidism, diabetes mellitus with diabetic neuropathy, coronary artery disease with previous coronary artery bypass grafting 5 in 2006 and subsequent stent placements, chronic UTI secondary to urinary retention and the patient self caths 5 times a day, CVA. He also has stenting to the right lower extremity. He is a former smoker. He was discharged to [facility] on 05/21/2021 following an hospitalization for COVID-19 infection and acute on chronic hypoxemic respiratory failure. He presented here on 06/07/2021 with complaints of generalized weakness and some altered mental status and shortness of breath. EKG revealed sinus rhythm with a right bundle branch block. A cardiogram revealed mildly impaired left ventricular systolic function with ejection fraction 45-50%. Mild to moderate mitral regurgitation. Moderate pulmonary hypertension. Chest x-ray showing bilateral pulmonary infiltrates mainly in the right midlung with milder faint opacities in the remainder the mid lung and lower lung. Urine cultures positive for gram-negative bacilli. White count 19. 8. Hemoglobin 9.9. Platelet count 120,000. Sodium 137. Potassium 4.4. BUN 43. Creatinine 1.67. ProBNP 21,700. He has been initiated on ceftriaxone and azithromycin. Lasix 40 mg IVP 1. Currently in a -220 ML balance. He is seen today in consultation on the selective care unit. He is currently resting comfortably in bed. Awake and alert in no acute distress. He denies any worsening shortness of breath, cough or congestion. He is maintaining O2 saturations in the 90s on 5 L high flow nasal cannula. Review of Systems REVIEW OF SYSTEMS: CONSTITUTIONAL: Positive for weakness with falls. Denies any recent significant weight loss or weight gain. EYES: Denies change in vision. EARS, NOSE, MOUTH, THROAT: Denies headaches, denies sore throat. CARDIOVASCULAR: Denies chest pain, palpitations or syncopal episodes. RESPIRATORY: Positive for shortness of breath, no cough, congestion no hemoptysis. GASTROINTESTINAL: Denies change in appetite, denies abdominal pain GENITOURINARY: Denies hematuria, denies infections. MUSKULOSKELETAL: Positive for lower extremity weakness. INTEGUMENTARY: Denies rash, denies eczema. NEUROLOGICAL: Denies recent memory loss, no recent seizure activity. PSYCHIATRIC: Denies anxiety, denies depression. HEMATOLOGIC/LYMPHATIC: Denies anemia, denies enlarged lymph nodes. Past Medical History Past Medical History: Coronary Artery Disease (CAD), Chest Pain / Angina, CVA/TIA, Diabetes Mellitus, Hypertension, Myocardial Infarction ([place]), Renal Disease, Vascular Disorder Additional Past Medical History / Comment(s): Pt recently admitted to [facility] on 05/14/21 with generalized weakness/UTI/Klebsiella/abnormal potassium levels. Other hx: Urinary retention requiring self-catheterization, pt thinks possible from effects from stroke as well as L arm/leg weakness, IDDM type II, bilateral neuropathy of hands and feet, PVD, [place] - 04/09/16, diabetic nephropathy CKD stage III/IV, normocytic anemia, UTIs Last Myocardial Infarction Date:: 2016 History of Any Multi-Drug Resistant Organisms: None Reported Past Surgical History: Coronary Bypass/CABG, Heart Catheterization, Heart Catheterization With Stent Additional Past Surgical History / Comment(s): 5 VESSEL BYPASS 2006, stent RT leg , arthrectomy/stent March 2016, bilateral cataract removal with lens implants Past Anesthesia/Blood Transfusion Reactions: No Reported Reaction Date of Last Stent Placement:: 2016 Past Psychological History: No Psychological Hx Reported Smoking Status: Former smoker - Past Family History Brother(s) Family Medical History: Myocardial Infarction ([place]) Mother Family Medical History: Diabetes Mellitus Additional Family Medical History / Comment(s): AT AGE 93 Father Family Medical History: Myocardial Infarction ([place]) Additional Family Medical History / Comment(s): AT AGE 83 FROM [place]. Medications and Allergies Home Medications Medication Instructions Recorded Confirmed Type Clopidogrel [Plavix] 75 mg PO DAILY #30 tab 11/20/15 06/07/21 Rx Isosorbide Mononitrate ER [Imdur] 30 mg PO DAILY #30 tab.er.24h 11/20/15 06/07/21 Rx Furosemide [Lasix] 40 mg PO DAILY 04/10/16 06/07/21 History amLODIPine [Norvasc] 10 mg PO DAILY #30 tab 04/17/16 06/07/21 Rx Atorvastatin [Lipitor] 40 mg PO HS 05/09/21 06/07/21 History Insulin Aspart Protam & Aspart 10 unit SQ DAILY 05/09/21 06/07/21 History [NovoLOG MIX 70-30 Flexpen] Insulin Aspart Protam & Aspart 12 unit SQ HS 05/09/21 06/07/21 History [NovoLOG MIX 70-30 Flexpen] Insulin Aspart Protam & Aspart See Protocol SQ HS 05/09/21 06/07/21 History [NovoLOG MIX 70-30 Flexpen] Levothyroxine Sodium [Synthroid] 50 mcg PO AC-BRKFST 05/09/21 06/07/21 History carvediloL [Coreg] 6.25 mg PO BID-W/MEALS 05/09/21 06/07/21 History Acetaminophen Tab [Tylenol] 650 mg PO Q6HR PRN tab 05/11/21 06/07/21 Rx lisinopriL [Zestril] 5 mg PO DAILY 05/14/21 06/07/21 History Ascorbic Acid [Vitamin C] 500 mg PO BID tab 05/21/21 06/07/21 Rx Cholecalciferol [Vitamin D3 (25 50 mcg PO DAILY tablet 05/21/21 06/07/21 Rx Mcg = 1000 Iu)] Pantoprazole [Protonix] 40 mg PO AC-BRKFST tab 05/21/21 06/07/21 Rx Zinc Sulfate [Orazinc] 220 mg PO DAILY cap 05/21/21 06/07/21 Rx traMADol HCl [Ultram] 50 mg PO TID PRN #9 tab 05/21/21 06/07/21 Rx Allergies Allergy/AdvReac Type Severity Reaction Status Date / Time Iodinated Contrast Media Allergy Rash/Hives Verified 06/07/21 09:53 Physical Exam Vitals: Vital Signs Temp Pulse Pulse Resp BP BP Pulse Ox 06/09/21 08:00 98.3 F 79 18 135/71 93 L 06/09/21 04:00 98.8 F 90 18 132/63 93 L 06/09/21 02:00 90 16 06/08/21 23:49 98.9 F 71 16 118/54 96 06/08/21 20:00 99.0 F 83 18 129/71 95 06/08/21 15:34 98.8 F 78 17 101/42 92 L 06/08/21 11:43 100.1 F H 84 17 99/58 90 L Intake and Output 06/08/21 06/09/21 06/09/21 22:59 06:59 14:59 Intake Total 328.909 114.062 Output Total 550 200 Balance -221.091 -85.938 Intake: Intake, IV Titration 88.909 114.062 Amount Heparin Sod,Pork in 0.45% 88.909 114.062 NaCl 25,000 unit In 0.45 % NaCl 1 250ml.bag @ 12 UNITS/KG/HR 8.709 mls/hr IV .Q24H [facility] Rx#: [id number] Oral 240 Output: Urine 550 200 Other: Voiding Method Indwelling Catheter Indwelling Catheter GENERAL EXAM: Alert, frail, 85-year-old gentleman, on 5 L nasal cannula, comfortable in no apparent distress. HEAD: Normocephalic. EYES: Normal reaction of pupils, equal size. NOSE: Clear with pink turbinates. THROAT: No erythema or exudates. NECK: No masses, no JVD. CHEST: No chest wall deformity. LUNGS: Equal air entry with faint crackles in the posterior base. CVS: S1 and S2 normal with no audible murmur, regular rhythm. ABDOMEN: No hepatosplenomegaly, normal bowel sounds, no guarding or rigidity. SPINE: No scoliosis or deformity SKIN: No rashes CENTRAL NERVOUS SYSTEM: No focal deficits, tone is normal in all 4 extremities. EXTREMITIES: There is no peripheral edema. Bruising left great toe. No clubbing, no cyanosis. Peripheral pulses are intact. Results - Laboratory Findings CBC and BMP: 06/09/21 07:49 06/09/21 07:49 PT/INR, D-dimer PT 11.0 sec (9.0-12.0) 06/08/21 06:56 INR 1.0 (<1.2) 06/08/21 06:56 Abnormal lab findings: Abnormal Labs 06/07/21 06/07/21 06/07/21 02:06 02:06 02:06 WBC 16.2 H RBC 3.90 L Hgb 10.9 L Hct 33.0 L RDW Plt Count 127 L Neutrophils # 15.0 H Lymphocytes # 0.6 L Basophils # APTT Sodium 131 L Chloride BUN 53 H Creatinine 1.52 H Glucose 318 H POC Glucose (mg/dL) Hemoglobin A1c Calcium 8.2 L AST Troponin I 0.512 H* Total Protein 5.4 L Albumin 2.7 L Urine Protein Urine Glucose (UA) Ur Leukocyte Esterase Urine RBC Urine WBC Urine WBC Clumps Urine Bacteria Urine Mucus 06/07/21 06/07/21 06/07/21 03:04 04:55 07:31 WBC RBC Hgb Hct RDW Plt Count Neutrophils # Lymphocytes # Basophils # APTT Sodium Chloride BUN Creatinine Glucose POC Glucose (mg/dL) Hemoglobin A1c Calcium AST Troponin I 1.270 H* 4.150 H* Total Protein Albumin Urine Protein 3+ H Urine Glucose (UA) 3+ H Ur Leukocyte Esterase Large H Urine RBC 25 H Urine WBC 122 H Urine WBC Clumps Few H Urine Bacteria Moderate H Urine Mucus Occasional H 06/07/21 06/07/21 06/07/21 15:48 17:15 20:07 WBC RBC Hgb Hct RDW Plt Count Neutrophils # Lymphocytes # Basophils # APTT 44.3 H Sodium Chloride BUN Creatinine Glucose POC Glucose (mg/dL) 265 H 223 H Hemoglobin A1c Calcium AST Troponin I Total Protein Albumin Urine Protein Urine Glucose (UA) Ur Leukocyte Esterase Urine RBC Urine WBC Urine WBC Clumps Urine Bacteria Urine Mucus 06/08/21 06/08/21 06/08/21 06:10 06:27 06:46 WBC RBC Hgb Hct RDW Plt Count Neutrophils # Lymphocytes # Basophils # APTT Sodium Chloride BUN Creatinine Glucose POC Glucose (mg/dL) 53 L 56 L 65 L Hemoglobin A1c Calcium AST Troponin I Total Protein Albumin Urine Protein Urine Glucose (UA) Ur Leukocyte Esterase Urine RBC Urine WBC Urine WBC Clumps Urine Bacteria Urine Mucus 06/08/21 06/08/21 06/08/21 06:56 06:56 06:56 WBC 21.7 H RBC 3.84 L Hgb 10.7 L Hct 33.8 L RDW 15.6 H Plt Count 128 L Neutrophils # 20.2 H Lymphocytes # 0.5 L Basophils # 0.3 H APTT Sodium Chloride 108 H BUN 44 H Creatinine 1.59 H Glucose POC Glucose (mg/dL) Hemoglobin A1c 11.1 H Calcium 8.0 L AST 72 H Troponin I Total Protein 5.5 L Albumin 2.5 L Urine Protein Urine Glucose (UA) Ur Leukocyte Esterase Urine RBC Urine WBC Urine WBC Clumps Urine Bacteria Urine Mucus 06/08/21 06/08/21 06/08/21 06:56 11:49 16:28 WBC RBC Hgb Hct RDW Plt Count Neutrophils # Lymphocytes # Basophils # APTT 38.7 H Sodium Chloride BUN Creatinine Glucose POC Glucose (mg/dL) 249 H 130 H Hemoglobin A1c Calcium AST Troponin I Total Protein Albumin Urine Protein Urine Glucose (UA) Ur Leukocyte Esterase Urine RBC Urine WBC Urine WBC Clumps Urine Bacteria Urine Mucus 06/08/21 06/08/21 06/09/21 17:31 19:49 00:55 WBC RBC Hgb Hct RDW Plt Count Neutrophils # Lymphocytes # Basophils # APTT 41.0 H 51.6 H Sodium Chloride BUN Creatinine Glucose POC Glucose (mg/dL) 119 H Hemoglobin A1c Calcium AST Troponin I Total Protein Albumin Urine Protein Urine Glucose (UA) Ur Leukocyte Esterase Urine RBC Urine WBC Urine WBC Clumps Urine Bacteria Urine Mucus 06/09/21 06/09/21 06/09/21 05:56 07:49 07:49 WBC 19.8 H RBC 3.55 L Hgb 9.9 L Hct 31.9 L RDW Plt Count 120 L Neutrophils # Lymphocytes # Basophils # APTT Sodium Chloride BUN 43 H Creatinine 1.67 H Glucose 150 H POC Glucose (mg/dL) 147 H Hemoglobin A1c Calcium 7.5 L AST Troponin I Total Protein Albumin Urine Protein Urine Glucose (UA) Ur Leukocyte Esterase Urine RBC Urine WBC Urine WBC Clumps Urine Bacteria Urine Mucus - Diagnostic Findings Chest x-ray: image reviewed Assessment and Plan Assessment: 1 Acute hypoxic respiratory failure secondary to acute exacerbation of systolic congestive heart failure with ejection fraction 45-50% with positive troponin at 4.1, BNP 21,700, recent admission for ongoing COVID-19 infection 2 Acute recurrent urinary tract infection secondary to gram-negative bacilli 3 Non-ST segment elevation myocardial infarction 4 Recurrent urinary tract infection positive for Klebsiella pneumoniae 5 History of CAD with previous bypass grafting, and previous stent placement 6 Prior history of myocardial infarction with positive troponin this admission at 4.15 7 History of diabetes with diabetic neuropathy 8 History of CVA 9 History of hypertension 10 History of urinary retention with self-catheterization 11 Poor overall functional performance based on the above-mentioned multiple comorbidities 12 Acute on chronic renal failure, history of stage III chronic kidney disease Plan: The patient was seen and evaluated Chest x-ray and labs reviewed Continue ceftriaxone and azithromycin Continue diuretics Overall prognosis is guarded No plans or cardiac catheterization per cardiology Heparin drip discontinued We'll continue to follow and make further recommendations based on his clinical status I have personally seen and examined the patient, performed the documentation and the assessment and plan as written. Number of minutes spent on the visit: 20.
--- NOTE | 2021-06-09 11:30 | CDI ---
Documentation Clarification Form Date: 06/09/2021 11:09 AM From: Leisa Valdes RN CCDS Admit Date: 06/07/2021 03:36:00 AM Patient Name: Fred Patton Visit Number: [id number] Discharge Date: ATTENTION: The Clinical Documentation Specialists (CDI) and [facility] Coding Staff appreciate your assistance in clarifying documentation. Please respond to the clarification below the line at the bottom and electronically sign. The CDI & [facility] Coding staff will review the response and follow-up if needed. Please note: Queries are made part of the Legal Health Record. If you have any questions, please contact the author of this message via ITS. Dr. Fred Duff Acute UTI is documented 06/08, Internal medicine progress note. Additional clarification regarding this diagnosis is requested. History/Risk Factors: 85-year-old male presents to the ED with chest pain. Medical History: Chronic urine retention with self catheterization five times a day, DM, HTN and CKD IV. 06/07, H&P. Clinical Indicators: Vital Signs: 06/07 B/P 120/43, HR 90, Temp 99.4, RR 18, SpO2 94% room air WBC: 06/07 16.2 Urinalysis: 06/07 Leukocyte esterase Large Wbc 122, bacteria moderate Urine Culture: 06/07 Proteus penneri Treatment: 06/07 0.9ns 500 cc bolus x 1. Antibiotics: 06/07 to 06/09 Ceftriaxone 1gm IVPB Q24HR; 06/09 - d/c'd 06/09 Azithromycin 500mg IVPB Daily x 3 bags; 06/09 - current piperacillin Sod/Tazobactam Sod 3.375gm IVPB Q8HR. Please clarify if there is an additional diagnosis associated with the UTI: [ ] UTI only [ X ] UTI secondary to straight catheterization [ ] Other, please specify [ ] Unable to determine (Template Last Revised: May 2020) MTDD
[2021-06-09 11:51] LABS: Glucose,Whole Blood 134 mg/dL (75-99)
--- NOTE | 2021-06-09 13:42 | P.PN ---
Subjective Progress Note Date: 06/09/21 This is an 85-year-old gentleman with past medical history of covid (05/11), CAD,NE, CABG, CVA, chronic urinary retention with self-catheterization , recurrent UTIs -history of Klebsiella, chronic kidney disease stage IV, chronic anemia diabetes mellitus, chronic neuropathy in hands and feet, hypertension, hyperlipidemia, peripheral vascular disease and multiple other medical issues presented to the ER with increasing generalized weakness accompanied by shortness of breath, occasional intermittent chest pain. Denies fever or chills. Denies cough or congestion. Denies nausea vomiting or diarrhea. D enies abdominal pain. Currently denies chest pain, palpitations. Denies lightheadedness dizziness or focal deficits. Reports she did well in rehab 2 weeks, returned home, progressive weakness and sustained another fall.Troponin 0.512, 1.270, 4.150. EKG reported sinus with right bundle branch block. ProBNP 8790. Chest x-ray reported no acute cardiopulmonary disease, clearing of mild pulmonary interstitial infiltrate in the lower lung bernal compared to prior exam.T-max 99.4, WBC 16.2. Sodium 131 BUN 53, creatinine 1.52 ( baseline creatinine 1.5), glucose 318. UA reported moderate bacteria, few WBC clumps, 122 WBCs, large leukocyte esterase, negative for nitrates with 3+ glucose. 06/08/2021 Echo Reported mildly impaired LV function, EF 45-50%, hypokinetic basal and mid posterior LV wall, mild to moderate mitral regurgitation, mild tricuspid regurgitation, moderate pulmonary hypertension. Anticoagulated on heparin drip. Denies chest pain, palpitations or shortness of breath.NPO, for potential cardiac cath today as per cardiology. Continues on Rocephin, for acute UTI, culture pending. 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 T-max 100.7, blood cultures ordered. Labs pending. 06/09/2021 hypoxia worsened, requiring 5-6 L nasal cannula O2 to maintain O2 sats in the high 80s to low 90s. Denies cough, congestion. Chest x-ray pending. Tmax 100.1, labs pending. Currently on azithromycin, ceftriaxone, urine culture finalizing. Blood sugars controlled. Objective - Vital Signs Vital signs: Vital Signs Temp 98.8 F 06/09/21 04:00 Pulse 90 03/23/22 04:00 Resp 18 06/09/21 04:00 BP 132/63 06/09/21 04:00 Pulse Ox 93 L 06/09/21 04:00 Intake & Output 06/08/21 06/09/21 06/09/21 18:59 06:59 18:59 Intake Total 375.938 114.062 Output Total 300 450 Balance 75.938 -335.938 Weight 72 kg Intake: Intake, IV Titration 135.938 114.062 Amount Heparin Sod,Pork in 0.45% 135.938 114.062 NaCl 25,000 unit In 0.45 % NaCl 1 250ml.bag @ 12 UNITS/KG/HR 8.709 mls/hr IV .Q24H REPLACED BY [facility] Rx#: [id number] Oral 240 Output: Urine 300 450 Other: Voiding Method Indwelling Catheter Indwelling Catheter - Exam PHYSICAL EXAM: VITAL SIGNS: As above GENERAL: Alert and oriented 3 ,Laying in bed, tired appearing, fragile,no acute distress HEENT: Conjunctivae normal. eyes normal. Oral mucosa moist. NECK: No JVD. No LNs CARDIOVASCULAR: S1, S2 regular. Systolic murmur RESPIRATION: Breath sounds diminished in the bases. Fine bibasilar crackles. ABDOMEN: Soft, nontender.No guarding. no masses palpable. No rebound, rigidity, guarding .Bowel sounds heard. LEGS: Claudication of bilateral lower extremities with trace edema. Diminished pulses. Left great toe with healed popped blister on tip. PSYCHIATRY: Alert and oriented X3, mood and affect normal. NERVOUS SYSTEM: Cranial N 2-12 grossly normal. Diffuse weakness, No focal deficits. Strength and sensation grossly intact. Skin: Warm and dry, no rash - Labs CBC & Chem 7: 06/09/21 07:49 06/09/21 07:49 Labs: Abnormal Lab Results - Last 24 Hours (Table) 06/08/21 06/08/21 06/08/21 Range/Units 06:56 11:49 16:28 APTT (22.0-30.0) sec POC Glucose (mg/dL) 249 H 130 H (75-99) mg/dL Hemoglobin A1c 11.1 H (0.0-6.0) % 06/08/21 06/08/21 06/09/21 Range/Units 17:31 19:49 00:55 APTT 41.0 H 51.6 H (22.0-30.0) sec POC Glucose (mg/dL) 119 H (75-99) mg/dL Hemoglobin A1c (0.0-6.0) % 06/09/21 Range/Units 05:56 APTT (22.0-30.0) sec POC Glucose (mg/dL) 147 H (75-99) mg/dL Hemoglobin A1c (0.0-6.0) % Microbiology - Last 24 Hours (Table) 06/07/21 03:04 Urine Culture - Preliminary Urine,Voided Gram Neg Bacilli Assessment and Plan Assessment: Acute on chronic CHF exacerbation, systolic dysfunction, EF 45-50% Acute hypoxic respiratory failure secondary to the above Progressive generalized weakness, status post fall in a patient with history of falls, recently completed 2 weeks of rehab. Elevated troponins, with vague complaints of chest pain.Possible NSTEMI, C ardiology following Acute recurrent UTI, gram-negative bacilli,finalizing, in a patient with history of urinary retention with chronic urinary retention,self caths 5 times a day Fevers, with elevated WBC, blood cultures ordered, possible acute bacteremia. Leukocytosis secondary to the above Diabetes mellitus II, A1C 11.1, further diabetic teaching in clinic, outpatient Chronic kidney disease, stage IV, baseline 1.5 Abnormal troponin, secondary to the above, decreased from recent admission Hyponatremia, resolved Recent COVID-19 infection CAD with history of NE, CABG Hypertension Diabetic neuropathy History of CVA Plan: Continue on current medication regime ,monitoring and symptomatic dayanara tment. Labs pending .Maintain antibiotics of ceftriaxone and azithromycin, urine culture finalizing. blood Cultures pending. Conservative management with diuretics as per cardiology. Worsening hypoxia, pulmonary consult in place, recommendations pending. The impression and plan of care has been dictated as directed. : I performed a history and examination of this patient, discussed the same with the dictator. I agree with the dictator's note ,documented as a scribe. Any additional findings or plans will be noted.
[2021-06-09 16:37] LABS: Glucose,Whole Blood 215 mg/dL (75-99)
[2021-06-09] MEDS: PIPERACILLIN-TAZOBACTAM 3.375 GM in SODIUM CHLORIDE 0.9% 100 ML IVPB SCH ×2 (17:20→23:54)
[2021-06-09] MEDS: methylPREDNISolone SOD SUCCI 40 MG/ML 1 ML VIAL IV SCH (18:49)
[2021-06-09 19:20] LABS: Glucose,Whole Blood 186 mg/dL (75-99)
[2021-06-09] MEDS: ATORVASTATIN 80 MG TAB PO SCH (19:53)
[2021-06-09] MEDS: FUROSEMIDE 10 MG/ML 4 ML VIAL IV SCH (19:53)
[2021-06-09] MEDS: ACETAMINOPHEN TAB 325 MG TAB PO PRN (19:53)
[2021-06-10] MEDS: traMADol 50 MG TAB PO PRN ×2 (00:02→19:53)
[2021-06-10] MEDS: methylPREDNISolone SOD SUCCI 40 MG/ML 1 ML VIAL IV SCH ×4 (01:30→23:05)
[2021-06-10 05:19] LABS: Glucose,Whole Blood 184 mg/dL (75-99)
[2021-06-10] MEDS: LEVOTHYROXINE 50 MCG TAB PO SCH (06:03)
[2021-06-10] MEDS: carvediloL 3.125 MG TAB PO SCH ×2 (06:03→17:05)
[2021-06-10] MEDS: INSULIN ASPART (NovoLOG) 100 UNIT/ML VIAL SQ SCH ×4 (06:04→20:16)
[2021-06-10] MEDS: INSULIN DETEMIR (LEVEMIR) 100 UNIT/ML SYR SQ SCH (06:04)
[2021-06-10] MEDS ORDERED: FUROSEMIDE 10 MG/ML 4 ML VIAL IV SCH (09:00)
[2021-06-10] MEDS: FUROSEMIDE 10 MG/ML 4 ML VIAL IV SCH ×3 (09:23→23:05)
[2021-06-10] MEDS: PANTOPRAZOLE 40 MG/10 ML VIAL IVP SCH (09:23)
[2021-06-10] MEDS: CHOLECALCIFEROL 25 MCG (1000 IU) TABLET PO SCH (09:23)
[2021-06-10] MEDS: ASCORBIC ACID 500 MG TAB PO SCH ×2 (09:23→19:54)
[2021-06-10] MEDS: ASPIRIN 81 MG PO SCH (09:24)
[2021-06-10] MEDS: CLOPIDOGREL 75 MG TAB PO SCH (09:24)
[2021-06-10] MEDS: PIPERACILLIN-TAZOBACTAM 3.375 GM in SODIUM CHLORIDE 0.9% 100 ML IVPB SCH ×3 (09:24→23:05)
[2021-06-10] MEDS: ZINC SULFATE 220 MG CAP PO SCH (09:24)
--- NOTE | 2021-06-10 09:36 | P.PN ---
Subjective Progress Note Date: 06/10/21 This is an 85-year-old gentleman with past medical history of covid (05/11), CAD,AZ, CABG, CVA, chronic urinary retention with self-catheterization , recurrent UTIs -history of Klebsiella, chronic kidney disease stage IV, chronic anemia diabetes mellitus, chronic neuropathy in hands and feet, hypertension, hyperlipidemia, peripheral vascular disease and multiple other medical issues presented to the ER with increasing generalized weakness accompanied by shortness of breath, occasional intermittent chest pain. Denies fever or chills. Denies cough or congestion. Denies nausea vomiting or diarrhea. D enies abdominal pain. Currently denies chest pain, palpitations. Denies lightheadedness dizziness or focal deficits. Reports she did well in rehab 2 weeks, returned home, progressive weakness and sustained another fall.Troponin 0.512, 1.270, 4.150. EKG reported sinus with right bundle branch block. ProBNP 8790. Chest x-ray reported no acute cardiopulmonary disease, clearing of mild pulmonary interstitial infiltrate in the lower lung bernal compared to prior exam.T-max 99.4, WBC 16.2. Sodium 131 BUN 53, creatinine 1.52 ( baseline creatinine 1.5), glucose 318. UA reported moderate bacteria, few WBC clumps, 122 WBCs, large leukocyte esterase, negative for nitrates with 3+ glucose. 06/08/2021 Echo Reported mildly impaired LV function, EF 45-50%, hypokinetic basal and mid posterior LV wall, mild to moderate mitral regurgitation, mild tricuspid regurgitation, moderate pulmonary hypertension. Anticoagulated on heparin drip. Denies chest pain, palpitations or shortness of breath.NPO, for potential cardiac cath today as per cardiology. Continues on Rocephin, for acute UTI, culture pending. 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 T-max 100.7, blood cultures ordered. Labs pending. 06/09/2021 hypoxia worsened, requiring 5-6 L nasal cannula O2 to maintain O2 sats in the high 80s to low 90s. Denies cough, congestion. Chest x-ray pending. Tmax 100.1, labs pending. Currently on azithromycin, ceftriaxone, urine culture finalizing. Blood sugars controlled. 06/10/2021 respiratory function continued to decline, required nonrebreather during the night currently weaned down to 10 L high flow nasal cannula. Received additional Lasix. Maintained on scheduled Lasix IV push. Diuresing well with 24-hour I&O reflecting a negative fluid balance. Yesterday's chest x- ray reported bilateral pulmonary infiltrates, greater on the right. T-max 99, labs pending. Urine culture reporting Proteus Penneri, maintained on Zosyn. Preliminary blood cultures no growth at 24 hours . Borderline hypotension, map ranging 69-85. Objective - Vital Signs Vital signs: Vital Signs Temp 97.9 F 06/10/21 03:14 Pulse 69 06/10/21 03:14 Resp 18 06/10/21 03:14 BP 101/63 06/10/21 03:14 Pulse Ox 92 L 06/10/21 06:10 Intake & Output 06/09/21 06/10/21 06/10/21 18:59 06:59 18:59 Intake Total 180 Output Total 751 525 Balance -571 -525 Weight 72 kg 73.5 kg Intake: Oral 180 Output: Urine 750 525 Stool 1 Other: Voiding Method Indwelling Catheter Indwelling Catheter # Bowel Movements 1 - Exam PHYSICAL EXAM: VITAL SIGNS: As above GENERAL: Alert and oriented 3 ,Laying in bed, tired appearing, fragile, respiratory effort increased HEENT: Conjunctivae normal. eyes normal. Oral mucosa moist. NECK: No JVD. No LNs CARDIOVASCULAR: S1, S2 regular. Systolic murmur RESPIRATION: Breath sounds diminished in the bases. Scattered rhonchi, Fine bibasilar crackles. ABDOMEN: Soft, nontender.No guarding. no masses palpable. No rebound, rigidity, guarding .Bowel sounds heard. LEGS: Claudication of bilateral lower extremities with trace edema. Diminished pulses. Left great toe with healed popped blister on tip. PSYCHIATRY: Alert and oriented X3, mood and affect normal. NERVOUS SYSTEM: Cranial N 2-12 grossly normal. Diffuse weakness, No focal deficits. Strength and sensation grossly intact. Skin: Warm and dry, no rash - Labs CBC & Chem 7: 06/09/21 07:49 06/09/21 07:49 Labs: Abnormal Lab Results - Last 24 Hours (Table) 06/09/21 06/09/21 06/09/21 Range/Units 07:49 07:49 11:48 WBC 19.8 H (3.8-10.6) k/uL RBC 3.55 L (4.30-5.90) m/uL Hgb 9.9 L (13.0-17.5) gm/dL Hct 31.9 L (39.0-53.0) % Plt Count 120 L (150-450) k/uL BUN 43 H (9-20) mg/dL Creatinine 1.67 H (0.66-1.25) mg/dL Glucose 150 H (74-99) mg/dL POC Glucose (mg/dL) 134 H (75-99) mg/dL Calcium 7.5 L (8.4-10.2) mg/dL 06/09/21 06/09/21 06/10/21 Range/Units 16:31 19:18 05:15 WBC (3.8-10.6) k/uL RBC (4.30-5.90) m/uL Hgb (13.0-17.5) gm/dL Hct (39.0-53.0) % Plt Count (150-450) k/uL BUN (9-20) mg/dL Creatinine (0.66-1.25) mg/dL Glucose (74-99) mg/dL POC Glucose (mg/dL) 215 H 186 H 184 H (75-99) mg/dL Calcium (8.4-10.2) mg/dL Microbiology - Last 24 Hours (Table) 06/08/21 17:31 Blood Culture - Preliminary Blood No Growth after 24 hours 06/08/21 17:31 Blood Culture - Preliminary Blood No Growth after 24 hours 06/07/21 03:04 Urine Culture - Final Urine,Voided Proteus penneri Assessment and Plan Assessment: Acute on chronic CHF exacerbation, systolic dysfunction, EF 45-50% Acute hypoxic respiratory failure secondary to the above Progressive generalized weakness, status post fall in a patient with history of falls, recently completed 2 weeks of rehab. Elevated troponins, with vague complaints of chest pain.Possible NSTEMI, conservative management as per cardiology . Acute recurrent UTI, gram-negative bacilli,finalizing, in a patient with history of urinary retention with chronic urinary retention,self caths 5 times a day Fevers, with elevated WBC, blood cultures ordered, possible acute bacteremia. Leukocytosis secondary to the above Diabetes mellitus II, A1C 11.1, further diabetic teaching in clinic, outpatient Chronic kidney disease, stage IV, baseline 1.5 Abnormal troponin, secondary to the above, decreased from recent admission Hyponatremia, resolved Recent COVID-19 infection CAD with history of AZ, CABG Hypertension Diabetic neuropathy History of CVA Plan: Continue on current medication regime ,monitoring and symptomatic treatment. Labs pending .encouraged to sit up in chair. maintained diuretics.aggressive pulmonary toileting, continue nebulized bronchodilators, IV steroids, Zosyn. Prognosis guarded given multiple complex medical issues. The impression and plan of care has been dictated as directed. : I performed a history and examination of this patient, discussed the same with the dictator. I agree with the dictator's note ,documented as a scribe. Any additional findings or plans will be noted.
--- NOTE | 2021-06-10 10:23 | CDI ---
Documentation Clarification Form Date: 06/10/2021 10:06:05 AM From: Leisa Valdes RN CCDS Admit Date: 06/07/2021 03:36:00 AM Patient Name: Fred Patton Visit Number: [id number] Discharge Date: ATTENTION: The Clinical Documentation Specialists (CDI) and [facility] Coding Staff appreciate your assistance in clarifying documentation. Please respond to the clarification below the line at the bottom and electronically sign. The CDI & [facility] Coding staff will review the response and follow-up if needed. Please note: Queries are made part of the Legal Health Record. If you have any questions, please contact the author of this message via ITS. Dr. Fred Duff The patient presented with the following clinical indicators. Additional clarification regarding the etiology/cause of the clinical indicators is requested. History/Risk Factors: 85-year-old male presents to the ED with chest pain. Medical History: Chronic urine retention with self-catheterization five times a day, DM, HTN and CKD IV. 06/07, H&P. Clinical Indicators: WBC: 06/07 Neutrophils: 15.0 Blood cultures: 06/08 No growth after 24 Hours Urine culture: 06/07 Proteus penneri Vitals signs: 06/07 B/P 120/53; HR 90; RR 18; Temp 99.4 F Oral; SpO2 94% ra Treatment: Antibiotics: 06/09 dcd 06/09 Azithromycin 500mg IVPB Daily x 3 bags. 06/07 06/09 Ceftriaxone 1 gm IVPB Q24HR; Piperacillin Sod/Tazobactam Sod 3.375gm IVPB Q8HR IV Bolus: 06/07 0.9NS 500cc bolus In your professional opinion, please clarify if these findings signify one of the following conditions: [ X ] Sepsis POA [ ] Sepsis ruled out [ ] Other, please specify [ ] Unable to determine SIRS Criteria: 2 or more of the following may indicate SIRS -Temperature < 96.8F (36C) or > 101.0F (38.3C) -Heart Rate > 90 bpm -Respiratory Rate > 20 breaths/min or PaCO2 < 32 mmHg -White Blood Cell Count > 12,000 or < 4,000 cells/mm3 or > 10% bands (Template Last Reviewed: April 2020) TAUN
--- NOTE | 2021-06-10 10:47 | CDI ---
Documentation Clarification Form Date: 06/10/2021 10:26:35 AM From: Leisa Valdes RN CCDS Admit Date: 06/07/2021 03:36:00 AM Patient Name: Fred Patton Visit Number: [id number] Discharge Date: ATTENTION: The Clinical Documentation Specialists (CDI) and [facility] Coding Staff appreciate your assistance in clarifying documentation. Please respond to the clarification below the line at the bottom and electronically sign. The CDI & [facility] Coding staff will review the response and follow-up if needed. Please note: Queries are made part of the Legal Health Record. If you have any questions, please contact the author of this message via ITS. Dr. Aga Oropeza There is documentation of Abnormal troponins, may be secondary to infectious process cannot rule out non-STEMI, 06/07, Cardiology consult and 06/08 & 06/09 in Cardiology progress notes. Additional clarification is requested. History/Risk Factors: 85-year-old male presents to the ED with chest pain. Medical History: Chronic urine retention with self-catheterization five times a day, DM, HTN, CHF and CKD IV. 06/07, H&P. Clinical Indicators: Troponins: 06/07 0.512 ; 4.150 ECHO: 06/07 EF 45-50%; Basal posterior LV wall motion is hypokinetic. Mid posterior LV wall motion is hypokinetic. There is mild aortic valve sclerosis. Mild to moderate mitral regurgitation is present. Mild tricuspid regurgitation present. Moderate pulmonary hypertension. Right ventricular systolic pressure, as measured by Doppler, is 49.56mmHg. Trace/mild (physiologic) pulmonic regurgitation. Vitals signs: 06/07 B/P 120/53; HR 90; RR 18; Temp 99.4 F Oral; SpO2 94% ra LABS: 06/07 Wbc 16.2; Neutrophils 15.0 Urine culture: 06/07 Proteus penneri Treatment: 06/07 Heparin 4,000 units IVP x 1; 06/07 06/09 Heparin 25,000 unit in sodium IV Q24H; 06/09 Plavix 75mg PO Daily Antibiotics: 06/09 dcd 06/09 Azithromycin 500mg IVPB Daily x 3 bags. 06/07 06/09 Ceftriaxone 1 gm IVPB Q24HR; 06/09 to current Piperacillin Sod/Tazobactam Sod 3.375gm IVPB Q8HR IV Bolus: 06/07 0.9NS 500cc bolus Can you please clarify the abnormal troponins ? [ XXX ] Non STEMI Type 2 due to infectious process [ ] Non - STEMI [ ] Non STEMI ruled out [ ] Other, please specify [ ] Unable to determine (Template Last Revised: May 2020) MTDD
--- NOTE | 2021-06-10 10:52 | P.PN ---
Subjective Progress Note Date: 06/10/21 HISTORY OF PRESENT ILLNESS: This is a 85-year-old male with a past medical history significant for coronary artery disease with previous CABG and PCI, diabetes, hypertension, hyperli pidemia, TIA, and hypothyroidism. Patient follows in the office with Dr. Garcias. We have been asked to see the patient in consultation for abnormal troponins. Patient examined at the bedside. The patient presented to the hospital with generalized weakness and symptoms of a urinary tract infection. The patient denies having any chest pain or pressure. No shortness of breath. No nausea or vomiting. Denies dizziness or lightheadedness. The patient does report tenderness to his bilateral lower extremities. * EKG reveals sinus mechanism with right bundle branch block * Chest xray no active cardiopulmonary disease. There is clearing of mild pulmonary interstitial infiltrates in the lower lung field compared to old exam. * Laboratory data: WBC 16.2. Hemoglobin 10.9. Platelet count 127. Sodium 131. Potassium 4.2. BUN 53. Creatinine 1.52. Lactic acid 1.5. troponin 0.512. 1.270. 4.150. BNP 8790. * Current home cardiac medications include: medication list not updated at the time of this dictation * Most recent echocardiogram obtained in August 2019 revealed ejection fraction 55%, [id number] mitral regurgitation, mild tricuspid regurgitation * Cardiac catheterization history: 2016 revealing severe left main coronary artery disease. Occluded RCA. MEZA to LAD patent. Saphenous vein graft to diagonal was patent. Saphenous vein graft to left circumflex appears to be occluded. The patient underwent PCI to the left circumflex. 06/08/2021 Patient examined this morning at the bedside. He denies chest pain or pressure. He denies SOB. WBC increased to 21 today. Echo reveals ejection fraction 45-50%, basal posterior LV wall hypokinesis, mid posterior LV wall hypokinesis, [id number] mitral regurgitation, mild tricuspid regurgitation, and moderate pulmonary hypertension 06/09/2021 Patient examined this morning at the bedside. Patient denies chest pain or pressure. He denies SOB. Patient is requiring 5L NC to maintain oxygen saturations greater than 92%. Patient was on room air on admission. He is receiving IVF at 60cc/hr. WBC 19.8. BUN 43. Creatinine 1.67. Chest x-ray obtained reveals bilateral pulmonary infiltrates with minimal left pleural e ffusion. 06/10/2021 Patient examined this morning at the bedside. Patient denies chest pain or press ure. He reports SOB this morning. He is on 10-12L HF NC. He has been started on IV lasix 40mg BID. Patient's blood pressure 93/55 this morning. Fluid balance over the last 24 hours is -1 L. PHYSICAL EXAM: VITAL SIGNS: Reviewed. GENERAL: Well-developed in no acute distress. HEENT: Head is normocephalic. Pupils are equal, round. Sclerae anicteric. Mucous membranes of the mouth are moist. Neck supple. No JVD or thyromegaly LUNGS: Respirations even and unlabored. Lungs diminished to auscultation bilaterally with scattered rhonchi and crackles at the bases. HEART: Regular rate and rhythm. S1 and S2 heard. EXTREMITIES: Normal range of motion. No clubbing or cyanosis. Peripheral pulses intact. Trace lower extremity edema with chronic discoloration and venous wounds ASSESSMENT: Urinary tract infection Leukocytosis Abnormal troponins, may be secondary to infectious process, cannot rule out non- STEMI Acute on chronic congestive heart failure with borderline/intermediate ejection fraction, 45-50% Acute hypoxic respiratory failure Coronary artery disease with previous CABG and PCI Chronic kidney disease Hypertension Hyperlipidemia Diabetes History of TIA Hypothyroidism PLAN: Continue current cardiac medications Continue IV lasix. Monitor kidney function. Accurate I&O Continue with conservative management at this time. No plans for cardiac cath at this time. Further recommendations pending patient course Nurse practitioner note has been reviewed by physician. Signing provider agrees with the documented findings, assessment, and plan of care. Objective - Vital Signs Vital signs: Vital Signs Temp 97.9 F 06/10/21 03:14 Pulse 74 06/10/21 08:00 Resp 17 06/10/21 08:00 BP 93/55 06/10/21 08:00 Pulse Ox 92 L 06/10/21 08:00 Intake & Output 06/09/21 06/10/21 06/10/21 18:59 06:59 18:59 Intake Total 180 Output Total 751 525 Balance -571 -525 Weight 72 kg 73.5 kg Intake: Oral 180 Output: Urine 750 525 Stool 1 Other: Voiding Method Indwelling Catheter Indwelling Catheter Indwelling Catheter # Bowel Movements 1 - Labs CBC & Chem 7: 06/09/21 07:49 06/09/21 07:49 Labs: Abnormal Lab Results - Last 24 Hours (Table) 06/09/21 06/09/21 06/09/21 Range/Units 11:48 16:31 19:18 POC Glucose (mg/dL) 134 H 215 H 186 H (75-99) mg/dL 06/10/21 Range/Units 05:15 POC Glucose (mg/dL) 184 H (75-99) mg/dL Microbiology - Last 24 Hours (Table) 06/08/21 17:31 Blood Culture - Preliminary Blood No Growth after 24 hours 06/08/21 17:31 Blood Culture - Preliminary Blood No Growth after 24 hours 06/07/21 03:04 Urine Culture - Final Urine,Voided Proteus penneri
--- NOTE | 2021-06-10 11:24 | P.CONS ---
History of Present Illness - Reason for Consult Consult date: 06/10/21 wound care - History of Present Illness This is an 85-year-old patient with past medical history significant for the artery disease, CVA, hypertension, diabetes, chronic kidney disease stage III/4, peripheral vascular disease. She has 3 ulcerations one to the sacrum that is a stage II pressure ulcer measuring approximately 1 x 1 x 0.1 cm with granulation noted to the wound bed minimal slough wound edges are attached to the wound base there is no tunneling or undermining. Excoriation noted to the site. Right pedal anterior foot ulceration with fatty layer exposure measuring 1.3 x 2.0 x 0.1 cm with significant amount of slough noted within the wound bed and minimal granulation. Wound edges are attached to the wound base. No tunneling or undermining noted. Patient has unstageable pressure ulcer to the left great toe. Has eschar In place. No drainage to the site noted. Review Of Systems: Constitutional: No fever, no chills, no night sweats. No weight change. No weakness, fatigue or lethargy. No daytime sleepiness. Integumentary:reports wounds, no lesions. No rash or pruritus. No unusual bruising. No change in hair or nails. Physical exam: General Appearance: Alert, cooperative, no distress, appears stated age. Skin: See HPI all other Skin color, texture, tugor normal, no rashes or lesions. Neurologic: Alert oriented x3 Assessment: 1. Stage II pressure ulcer sacrum 2. Right anterior foot ulceration with fatty layer exposure nonpressure components. 3. Pressure ulceration left great toe unstageable new 4. Diabetic foot ulcer Plan: 1. Sacrum: Apply honey gel, dry gauze, and border foam. Right anterior foot: Apply honey gel, dry gauze, foam and rolled gauze, secure with tape. Left great toe: No dressings at this time. Patient would benefit from continued wound wound care and outpatient setting. Thank you for the consultation any questions to contact the wound care center DNP note has been reviewed and discussed with Dr. Neff and the impression and plan of care has been directed as dictated. Past Medical History Past Medical History: Coronary Artery Disease (CAD), Chest Pain / Angina, CVA/TIA, Diabetes Mellitus, Hypertension, Myocardial Infarction (RI), Renal Disease, Vascular Disorder Additional Past Medical History / Comment(s): Pt recently admitted to [facility] on 05/14/21 with generalized weakness/UTI/Klebsiella/abnormal potassium levels. Other hx: Urinary retention requiring self-catheterization, pt thinks possible from effects from stroke as well as L arm/leg weakness, IDDM type II, bilateral neuropathy of hands and feet, PVD, RI - 04/09/16, diabetic nephropathy CKD stage III/IV, normocytic anemia, UTIs Last Myocardial Infarction Date:: 2016 History of Any Multi-Drug Resistant Organisms: None Reported Past Surgical History: Coronary Bypass/CABG, Heart Catheterization, Heart Catheterization With Stent Additional Past Surgical History / Comment(s): 5 VESSEL BYPASS 2006, stent RT l eg , arthrectomy/stent March 2016, bilateral cataract removal with lens implants Past Anesthesia/Blood Transfusion Reactions: No Reported Reaction Date of Last Stent Placement:: 2016 Past Psychological History: No Psychological Hx Reported Smoking Status: Former smoker - Past Family History Brother(s) Family Medical History: Myocardial Infarction (RI) Mother Family Medical History: Diabetes Mellitus Additional Family Medical History / Comment(s): AT AGE 93 Father Family Medical History: Myocardial Infarction (RI) Additional Family Medical History / Comment(s): AT AGE 83 FROM [place]. Medications and Allergies Home Medications Medication Instructions Recorded Confirmed Type Clopidogrel [Plavix] 75 mg PO DAILY #30 tab 11/20/15 06/07/21 Rx Isosorbide Mononitrate ER [Imdur] 30 mg PO DAILY #30 tab.er.24h 11/20/15 06/07/21 Rx Furosemide [Lasix] 40 mg PO DAILY 04/10/16 06/07/21 History amLODIPine [Norvasc] 10 mg PO DAILY #30 tab 04/17/16 06/07/21 Rx Atorvastatin [Lipitor] 40 mg PO HS 05/09/21 06/07/21 History Insulin Aspart Protam & Aspart 10 unit SQ DAILY 05/09/21 06/07/21 History [NovoLOG MIX 70-30 Flexpen] Insulin Aspart Protam & Aspart 12 unit SQ HS 05/09/21 06/07/21 History [NovoLOG MIX 70-30 Flexpen] Insulin Aspart Protam & Aspart See Protocol SQ HS 05/09/21 06/07/21 History [NovoLOG MIX 70-30 Flexpen] Levothyroxine Sodium [Synthroid] 50 mcg PO AC-BRKFST 05/09/21 06/07/21 History carvediloL [Coreg] 6.25 mg PO BID-W/MEALS 05/09/21 06/07/21 History Acetaminophen Tab [Tylenol] 650 mg PO Q6HR PRN tab 05/11/21 06/07/21 Rx lisinopriL [Zestril] 5 mg PO DAILY 05/14/21 06/07/21 History Ascorbic Acid [Vitamin C] 500 mg PO BID tab 05/21/21 06/07/21 Rx Cholecalciferol [Vitamin D3 (25 50 mcg PO DAILY tablet 05/21/21 06/07/21 Rx Mcg = 1000 Iu)] Pantoprazole [Protonix] 40 mg PO AC-BRKFST tab 05/21/21 06/07/21 Rx Zinc Sulfate [Orazinc] 220 mg PO DAILY cap 05/21/21 06/07/21 Rx traMADol HCl [Ultram] 50 mg PO TID PRN #9 tab 05/21/21 06/07/21 Rx Allergies Allergy/AdvReac Type Severity Reaction Status Date / Time Iodinated Contrast Media Allergy Rash/Hives Verified 06/07/21 09:53 Physical Exam Vitals: Vital Signs Temp Pulse Resp BP BP Pulse Ox 06/10/21 08:00 74 17 93/55 92 L 06/10/21 06:10 92 L 06/10/21 03:14 97.9 F 69 18 101/63 93 L 06/10/21 01:21 75 06/09/21 23:52 96 06/09/21 23:45 75 18 97/55 94 L 06/09/21 22:07 20 98 06/09/21 21:15 20 06/09/21 21:11 20 93 L 06/09/21 21:09 20 78 L 06/09/21 21:00 93 L 06/09/21 20:00 79 06/09/21 19:46 99.0 F 79 20 122/59 90 L 06/09/21 16:00 98.3 F 83 18 131/63 90 L 06/09/21 14:00 18 06/09/21 12:00 97.6 F 80 20 124/66 88 L Intake and Output 06/09/21 06/10/21 06/10/21 22:59 06:59 14:59 Output Total 751 525 Balance -751 -525 Output: Urine 750 525 Stool 1 Other: Voiding Method Indwelling Catheter Indwelling Catheter Indwelling Catheter Weight 73.5 kg Results CBC & Chem 7: 06/09/21 07:49 06/09/21 07:49 Labs: Abnormal Lab Results - Last 24 Hours (Table) 06/09/21 06/09/21 06/09/21 Range/Units 11:48 16:31 19:18 POC Glucose (mg/dL) 134 H 215 H 186 H (75-99) mg/dL 06/10/21 Range/Units 05:15 POC Glucose (mg/dL) 184 H (75-99) mg/dL Microbiology - Last 24 Hours (Table) 06/08/21 17:31 Blood Culture - Preliminary Blood No Growth after 24 hours 06/08/21 17:31 Blood Culture - Preliminary Blood No Growth after 24 hours 06/07/21 03:04 Urine Culture - Final Urine,Voided Proteus penneri Assessment and Plan (1) Pressure ulcer of sacral region, stage 2 Current Visit: Yes Status: Acute Code(s): L89.152 - PRESSURE ULCER OF SACRAL REGION, STAGE 2 SNOMED Code(s): 000637502 (2) Pressure ulcer of left foot, unstageable Current Visit: Yes Status: Acute Code(s): L89.890 - PRESSURE ULCER OF OTHER SITE, UNSTAGEABLE SNOMED Code(s): 429257412 (3) Non-pressure chronic ulcer of other part of left foot with fat layer exposed Current Visit: Yes Status: Acute Code(s): L97.522 - NON-PRS CHRONIC ULCER OTH PRT LEFT FOOT W FAT LAYER EXPOSED SNOMED Code(s): 882943319 (4) Type 2 diabetes mellitus with foot ulcer Current Visit: Yes Status: Acute Code(s): E11.621 - TYPE 2 DIABETES MELLITUS WITH FOOT ULCER; L97.509 - NON-PRESSURE CHRONIC ULCER OTH PRT UNSP FOOT W UNSP SEVERITY SNOMED Code(s): 112992824
[2021-06-10 11:29] LABS: Calcium 7.3 mg/dL (8.4-10.2); Potassium 4.2 mmol/L (3.5-5.1)
[2021-06-10 11:43] VITALS: BMI 27.8
[2021-06-10 12:03] LABS: Glucose,Whole Blood 345 mg/dL (75-99)
--- NOTE | 2021-06-10 12:30 | P.PN ---
Subjective Progress Note Date: 06/10/21 At this and 85-year-old male patient who follows with Dr. Duff as his primary care provider. He has a history of hyper-lipidemia, hypothyroidism, diabetes mellitus with diabetic neuropathy, coronary artery disease with previous coronary artery bypass grafting 5 in 2006 and subsequent stent placements, chronic UTI secondary to urinary retention and the patient self caths 5 times a day, CVA. He also has stenting to the right lower extremity. He is a former smoker. He was discharged to [facility] on 05/21/2021 following an hospitalization for COVID-19 infection and acute on chronic hypoxemic r espiratory failure. He presented here on 06/07/2021 with complaints of generalized weakness and some altered mental status and shortness of breath. EKG revealed sinus rhythm with a right bundle branch block. A cardiogram revealed mildly impaired left ventricular systolic function with ejection fra ction 45-50%. Mild to moderate mitral regurgitation. Moderate pulmonary hypertension. Chest x-ray showing bilateral pulmonary infiltrates mainly in the right midlung with milder faint opacities in the remainder the mid lung and lower lung. Urine cultures positive for gram-negative bacilli. White count 19.8. Hemoglobin 9.9. Platelet count 120,000. Sodium 137. Potassium 4.4. BUN 43. Creatinine 1.67. ProBNP 21,700. He has been initiated on ceftriaxone and azithromycin. Lasix 40 mg IVP 1. Currently in a -220 ML balance. He is seen today in consultation on the selective care unit. He is currently resting comfortably in bed. Awake and alert in no acute distress. He denies any wo rsening shortness of breath, cough or congestion. He is maintaining O2 saturations in the 90s on 5 L high flow nasal cannula. The patient is seen today 06/10/2021 in follow-up on the selective care unit. He is much more awake and alert today. Sitting up in bed. Denies any worsening shortness of breath, cough or congestion. He did have an episode last evening of acute shortness of breath and was given IV diuretics. He is continued on Lasix 40 mg IV every 8 hours. He is in a -1 L balance. He is currently on 10 L high flow nasal cannula. He also states he had some chest discomfort this m orning. He is still bronchospastic and wheezing. Some crackles in the posterior bases. Follow-up chest x-ray is pending. Procalcitonin is pending. He remains on Zosyn. Objective - Vital Signs Vital signs: Vital Signs Temp 97.9 F 06/10/21 03:14 Pulse 74 06/10/21 08:00 Resp 17 06/10/21 08:00 BP 93/55 06/10/21 08:00 Pulse Ox 92 L 06/10/21 08:00 Intake & Output 06/09/21 06/10/21 06/10/21 18:59 06:59 18:59 Intake Total 180 Output Total 751 525 Balance -571 -525 Weight 72 kg 73.5 kg 73.5 kg Intake: Oral 180 Output: Urine 750 525 Stool 1 Other: Voiding Method Indwelling Catheter Indwelling Catheter Indwelling Catheter # Bowel Movements 1 - Exam GENERAL EXAM: Alert, frail, 85-year-old gentleman, on 10 L nasal cannula, comfortable in no apparent distress. HEAD: Normocephalic. EYES: Normal reaction of pupils, equal size. NOSE: Clear with pink turbinates. THROAT: No erythema or exudates. NECK: No masses, no JVD. CHEST: No chest wall deformity. LUNGS: Equal air entry with end expiratory wheeze, faint crackles in the posterior base. CVS: S1 and S2 normal with no audible murmur, regular rhythm. ABDOMEN: No hepatosplenomegaly, normal bowel sounds, no guarding or rigidity. SPINE: No scoliosis or deformity SKIN: No rashes CENTRAL NERVOUS SYSTEM: No focal deficits, tone is normal in all 4 extremities. EXTREMITIES: There is no peripheral edema. Bruising left great toe. No clubbing, no cyanosis. Peripheral pulses are intact. - Labs CBC & Chem 7: 06/09/21 07:49 06/10/21 10:40 Labs: Abnormal Lab Results - Last 24 Hours (Table) 06/09/21 06/09/21 06/10/21 Range/Units 16:31 19:18 05:15 Sodium (137-145) mmol/L BUN (9-20) mg/dL Creatinine (0.66-1.25) mg/dL Glucose (74-99) mg/dL POC Glucose (mg/dL) 215 H 186 H 184 H (75-99) mg/dL Calcium (8.4-10.2) mg/dL 06/10/21 06/10/21 Range/Units 10:40 11:59 Sodium 135 L (137-145) mmol/L BUN 53 H (9-20) mg/dL Creatinine 1.96 H (0.66-1.25) mg/dL Glucose 284 H (74-99) mg/dL POC Glucose (mg/dL) 345 H (75-99) mg/dL Calcium 7.3 L (8.4-10.2) mg/dL Microbiology - Last 24 Hours (Table) 06/08/21 17:31 Blood Culture - Preliminary Blood No Growth after 24 hours 06/08/21 17:31 Blood Culture - Preliminary Blood No Growth after 24 hours 06/07/21 03:04 Urine Culture - Final Urine,Voided Proteus penneri Assessment and Plan Assessment: 1 Acute hypoxic respiratory failure secondary to acute exacerbation of systolic congestive heart failure with ejection fraction 45-50% with positive troponin at 4.1, BNP 21,700, recent admission for ongoing COVID-19 infection 2 Acute recurrent urinary tract infection secondary to Proteus penneri 3 Non-ST segment elevation myocardial infarction 4 Recurrent urinary tract infection positive for Klebsiella pneumoniae 5 History of CAD with previous bypass grafting, and previous stent placement 6 Prior history of myocardial infarction with positive troponin this admission at 4.15 7 History of diabetes with diabetic neuropathy 8 History of CVA 9 History of hypertension 10 History of urinary retention with self-catheterization 11 Poor overall functional performance based on the above-mentioned multiple comorbidities 12 Acute on chronic renal failure, history of stage III chronic kidney disease Plan: The patient was seen and evaluated Labs reviewed Additional Lasix given and currently on 10 L high flow nasal cannula Continued on IV diuretics Continued on Zosyn Continued on bronchodilators, IV Solu-Medrol Chest x-ray pending Procalcitonin pending Overall prognosis is guarded We'll continue to follow I have personally seen and examined the patient, performed the documentation and the assessment and plan as written. Number of minutes spent on the visit: 10.
[2021-06-10 16:50] LABS: Glucose,Whole Blood 348 mg/dL (75-99)
[2021-06-10] MEDS: ATORVASTATIN 80 MG TAB PO SCH (19:54)
[2021-06-10 20:00] LABS: Glucose,Whole Blood 338 mg/dL (75-99)
--- NOTE | 2021-06-10 22:18 | XR ---
EXAMINATION TYPE: XR chest 1V portable DATE OF EXAM: 06/10/2021 CLINICAL HISTORY: Difficulty breathing progress study. TECHNIQUE: Single AP portable upright view of the chest is obtained. COMPARISON: Chest x-ray from one day earlier FINDINGS: Faint patchy opacities seen mainly in the right midlung zone with milder faint opacities in the remainder of the midlung zones and lower lung zones suggestive of subtle pulmonary infiltration. This bilateral process has mild increased since yesterday's radiograph. Minimal left pleural effusion. No pneumothorax. IMPRESSION: Mild overall worsening in lung inflation pattern.
[2021-06-10] MEDS: ACETAMINOPHEN TAB 325 MG TAB PO PRN (23:04)
[2021-06-11 06:12] LABS: Glucose,Whole Blood 217 mg/dL (75-99)
[2021-06-11] MEDS: LEVOTHYROXINE 50 MCG TAB PO SCH (06:16)
[2021-06-11] MEDS: traMADol 50 MG TAB PO PRN ×2 (06:16→17:54)
[2021-06-11] MEDS: INSULIN DETEMIR (LEVEMIR) 100 UNIT/ML SYR SQ SCH ×2 (06:17→20:33)
[2021-06-11] MEDS: INSULIN ASPART (NovoLOG) 100 UNIT/ML VIAL SQ SCH ×4 (06:17→20:33)
[2021-06-11] MEDS: carvediloL 3.125 MG TAB PO SCH ×2 (06:17→17:10)
[2021-06-11] MEDS: ASPIRIN 81 MG PO SCH (09:00)
[2021-06-11] MEDS: PANTOPRAZOLE 40 MG/10 ML VIAL IVP SCH (09:00)
[2021-06-11] MEDS: FUROSEMIDE 10 MG/ML 4 ML VIAL IV SCH ×2 (09:00→19:54)
[2021-06-11] MEDS: PIPERACILLIN-TAZOBACTAM 3.375 GM in SODIUM CHLORIDE 0.9% 100 ML IVPB SCH ×3 (09:00→23:04)
[2021-06-11] MEDS: CLOPIDOGREL 75 MG TAB PO SCH (09:00)
[2021-06-11] MEDS: ASCORBIC ACID 500 MG TAB PO SCH ×2 (09:00→19:55)
[2021-06-11] MEDS: ZINC SULFATE 220 MG CAP PO SCH (09:00)
[2021-06-11] MEDS: CHOLECALCIFEROL 25 MCG (1000 IU) TABLET PO SCH (09:00)
[2021-06-11] MEDS ORDERED: IPRATROPIUM-ALBUTEROL 3 ML NEB INHALATION PRN (09:27)
[2021-06-11 09:49] LABS: Basophils # (A) 0.1 k/uL (0-0.2); Basophils % (A) 0 %; Eosinophils % (A) 0 %; HCT 31.6 % (39.0-53.0); HGB 9.9 gm/dL (13.0-17.5); Hypochromasia Slight; Lymphocytes # (A) 0.7 k/uL (1.0-4.8); Lymphocytes % (A) 5 %; MCH 27.6 pg (25.0-35.0); MCHC 31.4 g/dL (31.0-37.0); MCV 87.8 fL (80.0-100.0); Mean Platelet Volume 8.5; Monocytes # (A) 0.3 k/uL (0-1.0); Monocytes % (A) 2 %; Neutrophils # (A) 12.6 k/uL (1.3-7.7); Neutrophils % (A) 91 %; Platelet Count 148 k/uL (150-450); RDW 15.6 % (11.5-15.5); WBC 13.8 k/uL (3.8-10.6)
[2021-06-11 10:00] LABS: Calcium 7.4 mg/dL (8.4-10.2); Potassium 3.7 mmol/L (3.5-5.1)
[2021-06-11] MEDS: methylPREDNISolone SOD SUCCI 40 MG/ML 1 ML VIAL IV SCH (11:16)
--- NOTE | 2021-06-11 11:17 | P.PN ---
Subjective Progress Note Date: 06/11/21 HISTORY OF PRESENT ILLNESS: This is a 85-year-old male with a past medical history significant for coronary artery disease with previous CABG and PCI, diabetes, hypertension, hyperli pidemia, TIA, and hypothyroidism. Patient follows in the office with Dr. Garcias. We have been asked to see the patient in consultation for abnormal troponins. Patient examined at the bedside. The patient presented to the hospital with generalized weakness and symptoms of a urinary tract infection. The patient denies having any chest pain or pressure. No shortness of breath. No nausea or vomiting. Denies dizziness or lightheadedness. The patient does report tenderness to his bilateral lower extremities. * EKG reveals sinus mechanism with right bundle branch block * Chest xray no active cardiopulmonary disease. There is clearing of mild pulmonary interstitial infiltrates in the lower lung field compared to old exam. * Laboratory data: WBC 16.2. Hemoglobin 10.9. Platelet count 127. Sodium 131. Potassium 4.2. BUN 53. Creatinine 1.52. Lactic acid 1.5. troponin 0.512. 1.270. 4.150. BNP 8790. * Current home cardiac medications include: medication list not updated at the time of this dictation * Most recent echocardiogram obtained in August 2019 revealed ejection fraction 55%, [id number] mitral regurgitation, mild tricuspid regurgitation * Cardiac catheterization history: 2016 revealing severe left main coronary artery disease. Occluded RCA. MEZA to LAD patent. Saphenous vein graft to diagonal was patent. Saphenous vein graft to left circumflex appears to be occluded. The patient underwent PCI to the left circumflex. 06/08/2021 Patient examined this morning at the bedside. He denies chest pain or pressure. He denies SOB. WBC increased to 21 today. Echo reveals ejection fraction 45-50%, basal posterior LV wall hypokinesis, mid posterior LV wall hypokinesis, [id number] mitral regurgitation, mild tricuspid regurgitation, and moderate pulmonary hypertension 06/09/2021 Patient examined this morning at the bedside. Patient denies chest pain or pressure. He denies SOB. Patient is requiring 5L NC to maintain oxygen saturations greater than 92%. Patient was on room air on admission. He is receiving IVF at 60cc/hr. WBC 19.8. BUN 43. Creatinine 1.67. Chest x-ray obtained reveals bilateral pulmonary infiltrates with minimal left pleural e ffusion. 06/10/2021 Patient examined this morning at the bedside. Patient denies chest pain or press ure. He reports SOB this morning. He is on 10-12L HF NC. He has been started on IV lasix 40mg BID. Patient's blood pressure 93/55 this morning. Fluid balance over the last 24 hours is -1 L. 06/11/2021 Patient examined this morning at the bedside. Patient denies chest pain or pressure. He reports shortness of breath this morning but states it is slightly improved from yesterday. His oxygen has been weaned down to 5 L nasal cannula. The patient remains on IV Lasix 40 mg every 8 hours. Patient's creatinine increased today to 2.30. PHYSICAL EXAM: VITAL SIGNS: Reviewed. GENERAL: Well-developed in no acute distress. HEENT: Head is normocephalic. Pupils are equal, round. Sclerae anicteric. Mucous membranes of the mouth are moist. Neck supple. No JVD or thyromegaly LUNGS: Respirations even and unlabored. Lungs diminished to auscultation bilaterally with expiratory wheezing noted throughout. HEART: Regular rate and rhythm. S1 and S2 heard. EXTREMITIES: Normal range of motion. No clubbing or cyanosis. Peripheral pulses intact. Trace lower extremity edema with chronic discoloration and venous wounds ASSESSMENT: Urinary tract infection Leukocytosis Abnormal troponins, may be secondary to infectious process, cannot rule out non- STEMI Acute on chronic congestive heart failure with borderline/intermediate ejection fraction, 45-50% Acute hypoxic respiratory failure Coronary artery disease with previous CABG and PCI Acute kidney injury Chronic kidney disease Hypertension Hyperlipidemia Diabetes History of TIA Hypothyroidism PLAN: Continue current cardiac medications Decrease IV Lasix to every 12 hours Monitor kidney function Continue with conservative management at this time. No plans for cardiac cath at this time. Further recommendations pending patient course Nurse practitioner note has been reviewed by physician. Signing provider agrees with the documented findings, assessment, and plan of care. Objective - Vital Signs Vital signs: Vital Signs Temp 98.1 F 06/11/21 08:00 Pulse 82 06/11/21 08:00 Resp 24 06/11/21 08:00 BP 133/74 06/11/21 08:00 Pulse Ox 91 L 06/11/21 08:00 Intake & Output 06/10/21 06/11/21 06/11/21 18:59 06:59 18:59 Intake Total 960 Output Total 600 1300 Balance 360 -1300 Weight 73.5 kg 74.6 kg Intake: Oral 960 Output: Urine 600 1300 Other: Voiding Method Indwelling Catheter Indwelling Catheter Indwelling Catheter - Labs CBC & Chem 7: 06/11/21 09:02 06/11/21 09:02 Labs: Abnormal Lab Results - Last 24 Hours (Table) 06/10/21 06/10/21 06/10/21 Range/Units 10:40 10:40 11:59 WBC (3.8-10.6) k/uL RBC (4.30-5.90) m/uL Hgb (13.0-17.5) gm/dL Hct (39.0-53.0) % RDW (11.5-15.5) % Plt Count (150-450) k/uL Neutrophils # (1.3-7.7) k/uL Lymphocytes # (1.0-4.8) k/uL Sodium 135 L (137-145) mmol/L BUN 53 H (9-20) mg/dL Creatinine 1.96 H (0.66-1.25) mg/dL Glucose 284 H (74-99) mg/dL POC Glucose (mg/dL) 345 H (75-99) mg/dL Calcium 7.3 L (8.4-10.2) mg/dL Procalcitonin 0.94 H (0.02-0.09) ng/mL 06/10/21 06/10/21 06/11/21 Range/Units 16:45 19:59 06:11 WBC (3.8-10.6) k/uL RBC (4.30-5.90) m/uL Hgb (13.0-17.5) gm/dL Hct (39.0-53.0) % RDW (11.5-15.5) % Plt Count (150-450) k/uL Neutrophils # (1.3-7.7) k/uL Lymphocytes # (1.0-4.8) k/uL Sodium (137-145) mmol/L BUN (9-20) mg/dL Creatinine (0.66-1.25) mg/dL Glucose (74-99) mg/dL POC Glucose (mg/dL) 348 H 338 H 217 H (75-99) mg/dL Calcium (8.4-10.2) mg/dL Procalcitonin (0.02-0.09) ng/mL 06/11/21 06/11/21 Range/Units 09:02 09:02 WBC 13.8 H (3.8-10.6) k/uL RBC 3.60 L (4.30-5.90) m/uL Hgb 9.9 L (13.0-17.5) gm/dL Hct 31.6 L (39.0-53.0) % RDW 15.6 H (11.5-15.5) % Plt Count 148 L (150-450) k/uL Neutrophils # 12.6 H (1.3-7.7) k/uL Lymphocytes # 0.7 L (1.0-4.8) k/uL Sodium 136 L (137-145) mmol/L BUN 58 H (9-20) mg/dL Creatinine 2.30 H (0.66-1.25) mg/dL Glucose 241 H (74-99) mg/dL POC Glucose (mg/dL) (75-99) mg/dL Calcium 7.4 L (8.4-10.2) mg/dL Procalcitonin (0.02-0.09) ng/mL Microbiology - Last 24 Hours (Table) 06/08/21 17:31 Blood Culture - Preliminary Blood No Growth after 48 hours 06/08/21 17:31 Blood Culture - Preliminary Blood No Growth after 48 hours
[2021-06-11] MEDS: GABAPENTIN 100 MG CAP PO SCH ×2 (11:41→19:54)
[2021-06-11 11:56] LABS: Glucose,Whole Blood 287 mg/dL (75-99)
[2021-06-11] MEDS: IPRATROPIUM-ALBUTEROL 3 ML NEB INHALATION SCH ×3 (12:02→20:24)
[2021-06-11] MEDS: methylPREDNISolone SOD SUCCI 125 MG/2 ML VIAL IV SCH ×3 (12:06→23:04)
--- NOTE | 2021-06-11 12:09 | P.PN ---
Subjective Progress Note Date: 06/11/21 Principal diagnosis: Shortness of breath On 06/11/2021 patient is seen in follow-up on selective care unit, he is resting in bed, she feels more short of breath today. Lung sounds are positive for diffuse wheezes. Patient may have underlying history of COPD, is a former smoker. His chest x-ray findings and laboratory evaluations suggest acute exacerbation of CHF and possible underlying pneumonia is not excluded. He is currently on 5 L of oxygen pulse ox is 94%, he remains on IV Lasix at 40 mg every 8 hours, he remains on Zosyn for possibility of pneumonia, is in -940 mL as fluid balance over the last 24 hours. Patient continues on IV steroids of 40 mg every 8 hours. Patient has been afebrile, blood pressure has been stable. He also being treated for a wound on his right anterior foot, unstageable left great toe ulceration, diabetic foot ulcer, and one services are following. Patient also has a stage II pressure ulcer on his sacrum. Bilateral lower extremities are tender to touch, his right foot is covered with dressings. Today's labs have been reviewed his white blood cell count is improving and is down to 13.8, hemoglobin is 9.9, sodium is 136, the rest of electrolytes are within normal limits, there is been some worsening his renal function his BUN is 58 creatinine is up to 2.3. Pro-calcitonin level was 0.94. His urinalysis also showed evidence of urinary tract infection. Urine culture was positive for Proteus Penneri, sensitivbe to Zosyn, and blood cultures have shown no growth. Objective - Vital Signs Vital signs: Vital Signs Temp 98.0 F 06/11/21 11:44 Pulse 75 06/11/21 11:44 Resp 22 06/11/21 11:44 BP 130/60 06/11/21 11:44 Pulse Ox 90 L 06/11/21 11:44 Intake & Output 06/10/21 06/11/21 06/11/21 18:59 06:59 18:59 Intake Total 960 Output Total 600 1300 Balance 360 -1300 Weight 73.5 kg 74.6 kg Intake: Oral 960 Output: Urine 600 1300 Other: Voiding Method Indwelling Catheter Indwelling Catheter Indwelling Catheter - Exam GENERAL EXAM: Alert, very pleasant, 85-year-old male resting comfortably in bed mildly dyspneic, but no acute distress, currently on 5 L of oxygen pulse ox of 91% comfortable in no apparent distress. HEAD: Normocephalic/atraumatic. EYES: Normal reaction of pupils, equal size. Conjunctiva pink, sclera white. NOSE: Clear with pink turbinates. THROAT: No erythema or exudates. NECK: No masses, no JVD, no thyroid enlargement, no adenopathy. CHEST: No chest wall deformity. Symmetrical expansion. LUNGS: Equal air entry with diffuse wheezes CVS: Regular rate and rhythm, normal S1 and S2, no gallops, no murmurs, no rubs ABDOMEN: Soft, nontender. No hepatosplenomegaly, normal bowel sounds, no guarding or rigidity. EXTREMITIES: No clubbing, no edema, no cyanosis, 2+ pulses and upper and lower extremities. MUSCULOSKELETAL: Muscle strength and tone normal. SPINE: No scoliosis or deformity SKIN: No rashes. Right foot wound is covered with a dressing, the wound was not examined, please refer to the wound care team documentation CENTRAL NERVOUS SYSTEM: Alert and oriented -3. No focal deficits, tone is normal in all 4 extremities. PSYCHIATRIC: Alert and oriented -3. Appropriate affect. Intact judgment and insight. - Labs CBC & Chem 7: 06/11/21 09:02 06/11/21 09:02 Labs: Abnormal Lab Results - Last 24 Hours (Table) 06/10/21 06/10/21 06/10/21 Range/Units 10:40 11:59 16:45 WBC (3.8-10.6) k/uL RBC (4.30-5.90) m/uL Hgb (13.0-17.5) gm/dL Hct (39.0-53.0) % RDW (11.5-15.5) % Plt Count (150-450) k/uL Neutrophils # (1.3-7.7) k/uL Lymphocytes # (1.0-4.8) k/uL Sodium (137-145) mmol/L BUN (9-20) mg/dL Creatinine (0.66-1.25) mg/dL Glucose (74-99) mg/dL POC Glucose (mg/dL) 345 H 348 H (75-99) mg/dL Calcium (8.4-10.2) mg/dL Procalcitonin 0.94 H (0.02-0.09) ng/mL 06/10/21 06/11/21 06/11/21 Range/Units 19:59 06:11 09:02 WBC (3.8-10.6) k/uL RBC (4.30-5.90) m/uL Hgb (13.0-17.5) gm/dL Hct (39.0-53.0) % RDW (11.5-15.5) % Plt Count (150-450) k/uL Neutrophils # (1.3-7.7) k/uL Lymphocytes # (1.0-4.8) k/uL Sodium 136 L (137-145) mmol/L BUN 58 H (9-20) mg/dL Creatinine 2.30 H (0.66-1.25) mg/dL Glucose 241 H (74-99) mg/dL POC Glucose (mg/dL) 338 H 217 H (75-99) mg/dL Calcium 7.4 L (8.4-10.2) mg/dL Procalcitonin (0.02-0.09) ng/mL 06/11/21 06/11/21 Range/Units 09:02 11:54 WBC 13.8 H (3.8-10.6) k/uL RBC 3.60 L (4.30-5.90) m/uL Hgb 9.9 L (13.0-17.5) gm/dL Hct 31.6 L (39.0-53.0) % RDW 15.6 H (11.5-15.5) % Plt Count 148 L (150-450) k/uL Neutrophils # 12.6 H (1.3-7.7) k/uL Lymphocytes # 0.7 L (1.0-4.8) k/uL Sodium (137-145) mmol/L BUN (9-20) mg/dL Creatinine (0.66-1.25) mg/dL Glucose (74-99) mg/dL POC Glucose (mg/dL) 287 H (75-99) mg/dL Calcium (8.4-10.2) mg/dL Procalcitonin (0.02-0.09) ng/mL Microbiology - Last 24 Hours (Table) 06/08/21 17:31 Blood Culture - Preliminary Blood No Growth after 48 hours 06/08/21 17:31 Blood Culture - Preliminary Blood No Growth after 48 hours Assessment and Plan Plan: Assessment: #1. Acute hypoxic respiratory failure secondary to acute exacerbation of systolic CHF, and acute exacerbation of COPD #2. Possible pneumonia, possibly community acquired, or aspiration related. Currently covered with Zosyn #3. Acute non-ST elevated myocardial infarction #4. Acute urinary tract infection related to Proteus penneri #5. History of urinary retention with self-catheterization #6. History of CAD with previous bypass grafting and previous stent placement #7. History of diabetes mellitus with diabetic neuropathy #8. Previous history of CVA #9. History of hypertension #10. Poor overall functional performance #11. Acute on chronic renal failure with history of stage III chronic kidney disease Plan: Continue with Zosyn Continue IV Lasix Increase IV Solu-Medrol to 61 g every 6 hours We'll add nebulized bronchodilators including DuoNeb, Pulmicort and Perforomist Obtain speech evaluation to rule out possibility of aspiration with thin liquids Patient verbalizes occasionally choking on thin liquids We'll continue to follow his clinical course I have personally seen and examined the patient, performed the documentation and the assessment and plan as written. Number of minutes spent on the visit: [10] Time with Patient: Less than 30
--- NOTE | 2021-06-11 15:38 | P.PN ---
Subjective Progress Note Date: 06/11/21 This is an 85-year-old gentleman with past medical history of covid (05/11), CAD,MD, CABG, CVA, chronic urinary retention with self-catheterization , recurrent UTIs -history of Klebsiella, chronic kidney disease stage IV, chronic anemia diabetes mellitus, chronic neuropathy in hands and feet, hypertension, hyperlipidemia, peripheral vascular disease and multiple other medical issues presented to the ER with increasing generalized weakness accompanied by shortness of breath, occasional intermittent chest pain. Denies fever or chills. Denies cough or congestion. Denies nausea vomiting or diarrhea. D enies abdominal pain. Currently denies chest pain, palpitations. Denies lightheadedness dizziness or focal deficits. Reports she did well in rehab 2 weeks, returned home, progressive weakness and sustained another fall.Troponin 0.512, 1.270, 4.150. EKG reported sinus with right bundle branch block. ProBNP 8790. Chest x-ray reported no acute cardiopulmonary disease, clearing of mild pulmonary interstitial infiltrate in the lower lung bernal compared to prior exam.T-max 99.4, WBC 16.2. Sodium 131 BUN 53, creatinine 1.52 ( baseline creatinine 1.5), glucose 318. UA reported moderate bacteria, few WBC clumps, 122 WBCs, large leukocyte esterase, negative for nitrates with 3+ glucose. 06/08/2021 Echo Reported mildly impaired LV function, EF 45-50%, hypokinetic basal and mid posterior LV wall, mild to moderate mitral regurgitation, mild tricuspid regurgitation, moderate pulmonary hypertension. Anticoagulated on heparin drip. Denies chest pain, palpitations or shortness of breath.NPO, for potential cardiac cath today as per cardiology. Continues on Rocephin, for acute UTI, culture pending. 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 T-max 100.7, blood cultures ordered. Labs pending. 06/09/2021 hypoxia worsened, requiring 5-6 L nasal cannula O2 to maintain O2 sats in the high 80s to low 90s. Denies cough, congestion. Chest x-ray pending. Tmax 100.1, labs pending. Currently on azithromycin, ceftriaxone, urine culture finalizing. Blood sugars controlled. 06/10/2021 respiratory function continued to decline, required nonrebreather during the night currently weaned down to 10 L high flow nasal cannula. Received additional Lasix. Maintained on scheduled Lasix IV push. Diuresing well with 24-hour I&O reflecting a negative fluid balance. Yesterday's chest x- ray reported bilateral pulmonary infiltrates, greater on the right. T-max 99, labs pending. Urine culture reporting Proteus Penneri, maintained on Zosyn. Preliminary blood cultures no growth at 24 hours . Borderline hypotension, map ranging 69-85. 06/11/2021 oxygen weaned down to 5 L nasal cannula maintaining O2 sats in the 90s, less rhonchorous. Chest x-ray last night reported mild worsening and lung inflation pattern. Diuresing well on Lasix IV push with 24-hour I&O reflecting a negative fluid balance. Continues on Zosyn for acute UTI , positive for Proteus Penneri. Afebrile. Labs pending. Objective - Vital Signs Vital signs: Vital Signs Temp 98.0 F 06/11/21 11:44 Pulse 75 06/11/21 14:00 Resp 22 06/11/21 14:00 BP 130/60 06/11/21 11:44 Pulse Ox 92 L 06/11/21 12:05 Intake & Output 06/10/21 06/11/21 06/11/21 18:59 06:59 18:59 Intake Total 960 Output Total 600 1300 1 Balance 360 -1300 -1 Weight 73.5 kg 74.6 kg Intake: Oral 960 Output: Urine 600 1300 Stool 1 Other: Voiding Method Indwelling Catheter Indwelling Catheter Indwelling Catheter - Exam PHYSICAL EXAM: VITAL SIGNS: As above GENERAL: Alert and oriented 3 ,Laying in bed, tired appearing, fragile, mild dyspnea with minimal exertion HEENT: Conjunctivae normal. eyes normal. Oral mucosa moist. NECK: No JVD. No LNs CARDIOVASCULAR: S1, S2 regular. Systolic murmur RESPIRATION: Breath sounds diminished in the bases with fine bibasilar crackles. ABDOMEN: Soft, nontender.No guarding. no masses palpable. No rebound, rigidity, guarding .Bowel sounds heard. LEGS: ( refer to wound care team Doc.)Claudication of bilateral lower extremities with no edema.rigiht foor dressing c,d,i.. PSYCHIATRY: Alert and oriented X3, mood and affect normal. NERVOUS SYSTEM: Cranial N 2-12 grossly normal. Diffuse weakness, No focal deficits. Strength and sensation grossly intact. Skin: Warm and dry, no rash - Labs CBC & Chem 7: 06/11/21 09:02 06/11/21 09:02 Labs: Abnormal Lab Results - Last 24 Hours (Table) 06/10/21 06/10/21 06/10/21 Range/Units 10:40 16:45 19:59 WBC (3.8-10.6) k/uL RBC (4.30-5.90) m/uL Hgb (13.0-17.5) gm/dL Hct (39.0-53.0) % RDW (11.5-15.5) % Plt Count (150-450) k/uL Neutrophils # (1.3-7.7) k/uL Lymphocytes # (1.0-4.8) k/uL Sodium (137-145) mmol/L BUN (9-20) mg/dL Creatinine (0.66-1.25) mg/dL Glucose (74-99) mg/dL POC Glucose (mg/dL) 348 H 338 H (75-99) mg/dL Calcium (8.4-10.2) mg/dL Procalcitonin 0.94 H (0.02-0.09) ng/mL 06/11/21 06/11/21 06/11/21 Range/Units 06:11 09:02 09:02 WBC 13.8 H (3.8-10.6) k/uL RBC 3.60 L (4.30-5.90) m/uL Hgb 9.9 L (13.0-17.5) gm/dL Hct 31.6 L (39.0-53.0) % RDW 15.6 H (11.5-15.5) % Plt Count 148 L (150-450) k/uL Neutrophils # 12.6 H (1.3-7.7) k/uL Lymphocytes # 0.7 L (1.0-4.8) k/uL Sodium 136 L (137-145) mmol/L BUN 58 H (9-20) mg/dL Creatinine 2.30 H (0.66-1.25) mg/dL Glucose 241 H (74-99) mg/dL POC Glucose (mg/dL) 217 H (75-99) mg/dL Calcium 7.4 L (8.4-10.2) mg/dL Procalcitonin (0.02-0.09) ng/mL 06/11/21 Range/Units 11:54 WBC (3.8-10.6) k/uL RBC (4.30-5.90) m/uL Hgb (13.0-17.5) gm/dL Hct (39.0-53.0) % RDW (11.5-15.5) % Plt Count (150-450) k/uL Neutrophils # (1.3-7.7) k/uL Lymphocytes # (1.0-4.8) k/uL Sodium (137-145) mmol/L BUN (9-20) mg/dL Creatinine (0.66-1.25) mg/dL Glucose (74-99) mg/dL POC Glucose (mg/dL) 287 H (75-99) mg/dL Calcium (8.4-10.2) mg/dL Procalcitonin (0.02-0.09) ng/mL Microbiology - Last 24 Hours (Table) 06/08/21 17:31 Blood Culture - Preliminary Blood No Growth after 48 hours 06/08/21 17:31 Blood Culture - Preliminary Blood No Growth after 48 hours Assessment and Plan Assessment: Acute on chronic CHF exacerbation, systolic dysfunction, EF 45-50% Acute hypoxic respiratory failure secondary to the above Progressive generalized weakness, status post fall in a patient with history of falls, recently completed 2 weeks of rehab. Elevated troponins, with vague complaints of chest pain.Possible NSTEMI, conservative management as per cardiology . Acute recurrent UTI, Proteus Penneri, in a patient with history of urinary retention with chronic urinary retention,self caths 5 times a day Leukocytosis secondary to the above Diabetes mellitus II, A1C 11.1, further diabetic teaching in clinic, outpatient Chronic kidney disease, stage IV, baseline 1.5 Abnormal troponin, secondary to the above, decreased from recent admission Hyponatremia, resolved Recent COVID-19 infection CAD with history of MD, CABG Hypertension Diabetic neuropathy History of CVA Plan: Continue on current medication regime ,monitoring and symptomatic treatment. Labs pending .Maintain IV antibx., diuresing, aggressive pulmonary toileting, nebulized bronchodilators, IV steroids. Hyperglycemia, Levemir increased, with monitoring of Accu-Cheks. Prognosis guarded given multiple complex medical issues. ([facility] subacute rehab at discharge). The impression and plan of care has been dictated as directed. : I performed a history and examination of this patient, discussed the same with the dictator. I agree with the dictator's note ,documented as a scribe. Any additional findings or plans will be noted.
[2021-06-11 16:32] LABS: Glucose,Whole Blood 349 mg/dL (75-99)
[2021-06-11] MEDS: ATORVASTATIN 80 MG TAB PO SCH (19:55)
[2021-06-11] MEDS: BUDESONIDE 1 MG/2 ML NEBU INHALATION SCH (20:24)
[2021-06-11] MEDS: FORMOTEROL FUMARATE 20 MCG/2 ML NEBU INHALATION SCH (20:24)
[2021-06-11 20:29] LABS: Glucose,Whole Blood 398 mg/dL (75-99)
[2021-06-12] MEDS: ACETAMINOPHEN TAB 325 MG TAB PO PRN (04:36)
[2021-06-12] MEDS: LEVOTHYROXINE 50 MCG TAB PO SCH (07:01)
[2021-06-12] MEDS: carvediloL 3.125 MG TAB PO SCH ×2 (07:01→17:50)
[2021-06-12] MEDS: methylPREDNISolone SOD SUCCI 125 MG/2 ML VIAL IV SCH ×4 (07:02→23:47)
[2021-06-12 07:26] LABS: Glucose,Whole Blood 295 mg/dL (75-99)
[2021-06-12] MEDS: INSULIN DETEMIR (LEVEMIR) 100 UNIT/ML SYR SQ SCH ×2 (07:52→21:30)
[2021-06-12] MEDS: INSULIN ASPART (NovoLOG) 100 UNIT/ML VIAL SQ SCH ×4 (07:52→21:31)
[2021-06-12] MEDS: PIPERACILLIN-TAZOBACTAM 3.375 GM in SODIUM CHLORIDE 0.9% 100 ML IVPB SCH ×3 (07:52→23:47)
[2021-06-12 08:13] LABS: Calcium 7.6 mg/dL (8.4-10.2)
[2021-06-12] MEDS: FORMOTEROL FUMARATE 20 MCG/2 ML NEBU INHALATION SCH ×2 (08:43→20:07)
[2021-06-12] MEDS: IPRATROPIUM-ALBUTEROL 3 ML NEB INHALATION SCH ×4 (08:43→20:07)
[2021-06-12] MEDS: BUDESONIDE 1 MG/2 ML NEBU INHALATION SCH ×2 (08:43→20:07)
[2021-06-12] MEDS: ASPIRIN 81 MG PO SCH (10:24)
[2021-06-12] MEDS: GABAPENTIN 300 MG CAP PO SCH ×3 (10:24→21:31)
[2021-06-12] MEDS: CLOPIDOGREL 75 MG TAB PO SCH (10:24)
[2021-06-12] MEDS: CHOLECALCIFEROL 25 MCG (1000 IU) TABLET PO SCH (10:24)
[2021-06-12] MEDS: ASCORBIC ACID 500 MG TAB PO SCH ×2 (10:25→21:31)
[2021-06-12] MEDS: PANTOPRAZOLE 40 MG/10 ML VIAL IVP SCH (10:25)
[2021-06-12] MEDS: HEPARIN SODIUM,PORCINE/PF 5,000 UNIT/0.5 ML SYRINGE SQ SCH ×2 (10:25→21:30)
[2021-06-12] MEDS: FUROSEMIDE 10 MG/ML 4 ML VIAL IV SCH (10:25)
[2021-06-12] MEDS: ZINC SULFATE 220 MG CAP PO SCH (10:25)
[2021-06-12 11:25] LABS: Glucose,Whole Blood 394 mg/dL (75-99)
[2021-06-12] MEDS: traMADol 50 MG TAB PO PRN ×2 (11:52→19:42)
--- NOTE | 2021-06-12 12:49 | P.PN ---
Subjective Progress Note Date: 06/12/21 At this and 85-year-old male patient who follows with Dr. Duff as his primary care provider. He has a history of hyper-lipidemia, hypothyroidism, diabetes mellitus with diabetic neuropathy, coronary artery disease with previous coronary artery bypass grafting 5 in 2006 and subsequent stent placements, chronic UTI secondary to urinary retention and the patient self caths 5 times a day, CVA. He also has stenting to the right lower extremity. He is a former smoker. He was discharged to [facility] on 05/21/2021 following an hospitalization for COVID-19 infection and acute on chronic hypoxemic r espiratory failure. He presented here on 06/07/2021 with complaints of generalized weakness and some altered mental status and shortness of breath. EKG revealed sinus rhythm with a right bundle branch block. A cardiogram revealed mildly impaired left ventricular systolic function with ejection fra ction 45-50%. Mild to moderate mitral regurgitation. Moderate pulmonary hypertension. Chest x-ray showing bilateral pulmonary infiltrates mainly in the right midlung with milder faint opacities in the remainder the mid lung and lower lung. Urine cultures positive for gram-negative bacilli. White count 19.8. Hemoglobin 9.9. Platelet count 120,000. Sodium 137. Potassium 4.4. BUN 43. Creatinine 1.67. ProBNP 21,700. He has been initiated on ceftriaxone and azithromycin. Lasix 40 mg IVP 1. Currently in a -220 ML balance. He is seen today in consultation on the selective care unit. He is currently resting comfortably in bed. Awake and alert in no acute distress. He denies any wo rsening shortness of breath, cough or congestion. He is maintaining O2 saturations in the 90s on 5 L high flow nasal cannula. The patient is seen today 06/10/2021 in follow-up on the selective care unit. He is much more awake and alert today. Sitting up in bed. Denies any worsening shortness of breath, cough or congestion. He did have an episode last evening of acute shortness of breath and was given IV diuretics. He is continued on Lasix 40 mg IV every 8 hours. He is in a -1 L balance. He is currently on 10 L high flow nasal cannula. He also states he had some chest discomfort this m orning. He is still bronchospastic and wheezing. Some crackles in the posterior bases. Follow-up chest x-ray is pending. Procalcitonin is pending. He remains on Zosyn. The patient is seen today 06/12/2021 in follow-up on the selective care unit. He is awake and alert in no acute distress. Resting fairly comfortably in bed. He is still requiring 5 L high flow nasal cannula to maintain O2 saturations in the 90s. He's been afebrile. Hemodynamically stable. Blood cultures reveal no growth. Sodium 137. Potassium 4.0. BUN 63. Creatinine 2.13. Glucose 266. He is continued on DuoNeb inhalations, Pulmicort and Perforomist inhalations, IV Solu-Medrol. Antibiotics in the form of Zosyn. Heparin for DVT prophylaxis. Remains on IV diuretics. Currently in a -500 ML balance. Objective - Vital Signs Vital signs: Vital Signs Temp 98.0 F 06/12/21 11:46 Pulse 72 06/12/21 11:48 Resp 18 06/12/21 11:48 BP 129/83 06/12/21 11:46 Pulse Ox 94 L 06/12/21 11:46 Intake & Output 06/11/21 06/12/21 06/12/21 18:59 06:59 18:59 Intake Total 440 150 118 Output Total 801 650 1 Balance -361 -500 117 Weight 74.5 kg Intake: Oral 440 150 118 Output: Urine 800 650 Stool 1 1 Other: Voiding Method Indwelling Catheter Indwelling Catheter Indwelling Catheter - Exam GENERAL EXAM: Alert, frail, 85-year-old gentleman, on 5 L nasal cannula, comfortable in no apparent distress. HEAD: Normocephalic. EYES: Normal reaction of pupils, equal size. NOSE: Clear with pink turbinates. THROAT: No erythema or exudates. NECK: No masses, no JVD. CHEST: No chest wall deformity. LUNGS: Equal air entry with end expiratory wheeze, faint crackles in the posterior base. CVS: S1 and S2 normal with no audible murmur, regular rhythm. ABDOMEN: No hepatosplenomegaly, normal bowel sounds, no guarding or rigidity. SPINE: No scoliosis or deformity SKIN: No rashes CENTRAL NERVOUS SYSTEM: No focal deficits, tone is normal in all 4 extremities. EXTREMITIES: There is no peripheral edema. Bruising left great toe. No clubbing, no cyanosis. Peripheral pulses are intact. - Labs CBC & Chem 7: 06/11/21 09:02 06/12/21 07:18 Labs: Abnormal Lab Results - Last 24 Hours (Table) 06/11/21 06/11/21 06/12/21 Range/Units 16:28 20:28 07:18 BUN 63 H (9-20) mg/dL Creatinine 2.13 H (0.66-1.25) mg/dL Glucose 266 H (74-99) mg/dL POC Glucose (mg/dL) 349 H 398 H (75-99) mg/dL Calcium 7.6 L (8.4-10.2) mg/dL 06/12/21 06/12/21 Range/Units 07:24 11:24 BUN (9-20) mg/dL Creatinine (0.66-1.25) mg/dL Glucose (74-99) mg/dL POC Glucose (mg/dL) 295 H 394 H (75-99) mg/dL Calcium (8.4-10.2) mg/dL Microbiology - Last 24 Hours (Table) 06/08/21 17:31 Blood Culture - Preliminary Blood No Growth after 72 hours 06/08/21 17:31 Blood Culture - Preliminary Blood No Growth after 72 hours Assessment and Plan Assessment: 1 Acute hypoxic respiratory failure secondary to acute exacerbation of systolic congestive heart failure with ejection fraction 45-50% with positive troponin at 4.1, BNP 21,700, recent admission for ongoing COVID-19 infection 2 Acute recurrent urinary tract infection secondary to Proteus penneri 3 Non-ST segment elevation myocardial infarction 4 Recurrent urinary tract infection positive for Klebsiella pneumoniae 5 History of CAD with previous bypass grafting, and previous stent placement 6 Prior history of myocardial infarction with positive troponin this admission at 4.15 7 History of diabetes with diabetic neuropathy 8 History of CVA 9 History of hypertension 10 History of urinary retention with self-catheterization 11 Poor overall functional performance based on the above-mentioned multiple comorbidities 12 Acute on chronic renal failure, history of stage III chronic kidney disease Plan: The patient was seen and evaluated Labs reviewed Currently on 5 L nasal cannula Continued on IV diuretics Continued on Zosyn Continued on bronchodilators, IV Solu-Medrol Chest x-ray in a.m. We'll continue to follow I have personally seen and examined the patient, performed the documentation and the assessment and plan as written. Number of minutes spent on the visit: 10.
--- NOTE | 2021-06-12 15:28 | P.PN ---
Subjective Progress Note Date: 06/12/21 PROGRESS NOTE The patient is an 85-year-old male with a known history of coronary disease, status post CABG and PCI history of peripheral vascular disease, hypertension and hyperlipidemia who presented with UTI and had troponin elevation. His breathing is stable today, he denies any chest discomfort or significant dyspnea. He is complaining of lower extremities discomfort related to his PAD. He continues to be on oxygen and IV diuretics. He had a recent admission for COVID-19 infection. He continues to be on aspirin once a day, Lipitor 80 mg daily, Coreg 3.125 mg twice a day, Plavix 75 mg daily, Lasix 40 mg IV every 12 hours, insulin, Solu-Medrol PHYSICAL EXAMINATION: Blood pressure 129/80 heart rate 70 LUNGS: Clear to auscultation HEART: Regular rate and rhythm, S1, S2. No S3. systolic murmur at the base ABDOMEN: Soft, nontender, no organomegaly EXTREMETIES: Chronic skin changes with decreased pulses and trace edema LAB: BUN 63, creatinine 2.13, potassium 4.0 IMPRESSION: 1. Recent UTI 2. Non-STEMI related to the infection 3. Status post CABG and PCI 4. Peripheral vascular disease 5. Chronic kidney disease PLAN: 1. Change to oral diuretics 2. Increase physical activity 3. Follow renal functions 4. Depending on his progress further recommendations will be made. Objective - Vital Signs Vital signs: Vital Signs Temp 98.0 F 06/12/21 11:46 Pulse 78 06/12/21 13:15 Resp 18 06/12/21 13:15 BP 129/83 06/12/21 11:46 Pulse Ox 94 L 06/12/21 11:46 Intake & Output 06/11/21 06/12/21 06/12/21 18:59 06:59 18:59 Intake Total 440 150 118 Output Total 801 650 2 Balance -361 -500 116 Weight 74.5 kg Intake: Oral 440 150 118 Output: Urine 800 650 Stool 1 2 Other: Voiding Method Indwelling Catheter Indwelling Catheter Indwelling Catheter - Labs CBC & Chem 7: 06/11/21 09:02 06/12/21 07:18 Labs: Abnormal Lab Results - Last 24 Hours (Table) 06/11/21 06/11/21 06/12/21 Range/Units 16:28 20:28 07:18 BUN 63 H (9-20) mg/dL Creatinine 2.13 H (0.66-1.25) mg/dL Glucose 266 H (74-99) mg/dL POC Glucose (mg/dL) 349 H 398 H (75-99) mg/dL Calcium 7.6 L (8.4-10.2) mg/dL 06/12/21 06/12/21 Range/Units 07:24 11:24 BUN (9-20) mg/dL Creatinine (0.66-1.25) mg/dL Glucose (74-99) mg/dL POC Glucose (mg/dL) 295 H 394 H (75-99) mg/dL Calcium (8.4-10.2) mg/dL Microbiology - Last 24 Hours (Table) 06/08/21 17:31 Blood Culture - Preliminary Blood No Growth after 72 hours 06/08/21 17:31 Blood Culture - Preliminary Blood No Growth after 72 hours
[2021-06-12] MEDS: FUROSEMIDE 40 MG TAB PO SCH (15:47)
[2021-06-12 16:15] LABS: Glucose,Whole Blood 381 mg/dL (75-99)
[2021-06-12 16:28] LABS: Glucose,Whole Blood 371 mg/dL (75-99)
--- NOTE | 2021-06-12 18:46 | P.PN ---
Subjective This is a pleasant 85 years old male with multiple medical problems, he is here in the hospital for multiple medical issues. Currently has been treated for acute systolic CHF and he is currently on IV Lasix and switch him to oral Lasix 40 mg twice a day by cardiology team. Also was some evidence of COPD exacerbation and currently on Solu-Medrol 60 mg. Is covered with antibiotics with Zosyn for possible pulmonary infection and also for his Proteus UTI. He has no evidence of non-STEMI status post CABG and PCI, currently stable. Also other chronic medical problems including PVD and chronic kidney disease stage III. He is complaining of from bilateral feet pain for the last 3-4 years and he still bothering him, he was on gabapentin 200 mg twice a day which is increased today to 300 mg 3 times a day. He states at baseline he walks only little at home with the help of walker, currently evaluated by physical therapy and recommended subacute rehab, he is set to go to [facility] whenever he is clinically stable. His breathing looks comfortable while at rest is needing 5 L/m of oxygen. With no significant dyspnea or chest pain and only little cough. Objective - Vital Signs Vital signs: Vital Signs Temp 98.0 F 06/12/21 11:46 Pulse 72 06/12/21 11:48 Resp 18 06/12/21 11:48 BP 129/83 06/12/21 11:46 Pulse Ox 94 L 06/12/21 11:46 Intake & Output 06/11/21 06/12/21 06/12/21 18:59 06:59 18:59 Intake Total 440 150 118 Output Total 801 650 1 Balance -361 -500 117 Weight 74.5 kg Intake: Oral 440 150 118 Output: Urine 800 650 Stool 1 1 Other: Voiding Method Indwelling Catheter Indwelling Catheter Indwelling Catheter - Exam -GENERAL: The patient is alert and oriented x3, not in any acute distress. Well developed, well nourished. Generalized weakness HEENT: Pupils are round and equally reacting to light. EOMI. No scleral icterus. No conjunctival pallor. Normocephalic, atraumatic. No pharyngeal erythema. No thyromegaly. CARDIOVASCULAR: S1 and S2 present. No murmurs, rubs, or gallops. -PULMONARY: Chest is clear to auscultation, no wheezing or crackles. Mild tachypnea ABDOMEN: Soft, nontender, nondistended, normoactive bowel sounds. No palpable organomegaly. MUSCULOSKELETAL: No joint swelling or deformity. -EXTREMITIES: No cyanosis, clubbing, or pedal edema. Left foot superficial wound with no evidence of cellulitis NEUROLOGICAL: Gross neurological examination did not reveal any focal deficits. SKIN: No rashes. no petechiae. - Labs CBC & Chem 7: 06/11/21 09:02 06/12/21 07:18 Labs: Abnormal Lab Results - Last 24 Hours (Table) 06/11/21 06/11/21 06/12/21 Range/Units 16:28 20:28 07:18 BUN 63 H (9-20) mg/dL Creatinine 2.13 H (0.66-1.25) mg/dL Glucose 266 H (74-99) mg/dL POC Glucose (mg/dL) 349 H 398 H (75-99) mg/dL Calcium 7.6 L (8.4-10.2) mg/dL 06/12/21 06/12/21 Range/Units 07:24 11:24 BUN (9-20) mg/dL Creatinine (0.66-1.25) mg/dL Glucose (74-99) mg/dL POC Glucose (mg/dL) 295 H 394 H (75-99) mg/dL Calcium (8.4-10.2) mg/dL Microbiology - Last 24 Hours (Table) 06/08/21 17:31 Blood Culture - Preliminary Blood No Growth after 72 hours 06/08/21 17:31 Blood Culture - Preliminary Blood No Growth after 72 hours Assessment and Plan Assessment: Systolic CHF Non-STEMI status post CABG and PCI COPD exacerbation Proteus UTI Recent COVID-19 infection Peripheral vascular disease Chronic kidney disease stage III peripheral neuropathy Left foot superficial wound, being followed by wound care Diabetes mellitus Diabetic neuropathy Plan: This is a pleasant 85 male with CHF, COPD, non-STEMI and UTI Continue with Solu-Medrol, Zosyn and Levemir Pulmonary and cardiology team on the case Increased gabapentin Continue with insulin sliding scale and monitored glucose Labs and medication were reviewed.. Continue same treatment. Continue with symptomatic treatment. Resume home medication. Monitor lytes and vitals. DVT and GI prophylaxis. Further recommendations as per clinical course of the patient DVT prophylaxis: Subcutaneous heparin GI Prophylaxis: Ppi PT/OT: Going to [facility] Prognosis is guarded
[2021-06-12 19:47] LABS: Glucose,Whole Blood 470 mg/dL (75-99)
[2021-06-12] MEDS: ATORVASTATIN 80 MG TAB PO SCH (21:31)
[2021-06-13] MEDS: traMADol 50 MG TAB PO PRN ×2 (06:29→16:22)
[2021-06-13] MEDS: carvediloL 3.125 MG TAB PO SCH ×2 (06:30→17:05)
[2021-06-13] MEDS: methylPREDNISolone SOD SUCCI 125 MG/2 ML VIAL IV SCH (06:30)
[2021-06-13] MEDS: LEVOTHYROXINE 50 MCG TAB PO SCH (06:30)
[2021-06-13 07:15] LABS: Glucose,Whole Blood 351 mg/dL (75-99)
[2021-06-13] MEDS: BUDESONIDE 1 MG/2 ML NEBU INHALATION SCH ×2 (08:16→19:31)
[2021-06-13] MEDS: IPRATROPIUM-ALBUTEROL 3 ML NEB INHALATION SCH ×4 (08:16→19:31)
[2021-06-13] MEDS: FORMOTEROL FUMARATE 20 MCG/2 ML NEBU INHALATION SCH ×2 (08:16→19:31)
[2021-06-13] MEDS: INSULIN DETEMIR (LEVEMIR) 100 UNIT/ML SYR SQ SCH (08:38)
[2021-06-13] MEDS: CHOLECALCIFEROL 25 MCG (1000 IU) TABLET PO SCH (08:39)
[2021-06-13] MEDS: INSULIN ASPART (NovoLOG) 100 UNIT/ML VIAL SQ SCH ×4 (08:39→22:08)
[2021-06-13] MEDS: FUROSEMIDE 40 MG TAB PO SCH ×2 (08:40→16:17)
[2021-06-13] MEDS: ZINC SULFATE 220 MG CAP PO SCH (08:40)
[2021-06-13] MEDS: PANTOPRAZOLE 40 MG/10 ML VIAL IVP SCH (08:40)
[2021-06-13] MEDS: GABAPENTIN 300 MG CAP PO SCH (08:40)
[2021-06-13] MEDS: PIPERACILLIN-TAZOBACTAM 3.375 GM in SODIUM CHLORIDE 0.9% 100 ML IVPB SCH ×2 (08:40→16:17)
[2021-06-13] MEDS: ASPIRIN 81 MG PO SCH (08:40)
[2021-06-13] MEDS: CLOPIDOGREL 75 MG TAB PO SCH (08:40)
[2021-06-13 10:16] LABS: Calcium 7.8 mg/dL (8.4-10.2); Potassium 4.5 mmol/L (3.5-5.1)
--- NOTE | 2021-06-13 10:18 | XR ---
EXAMINATION TYPE: XR chest 1V portable DATE OF EXAM: 06/13/2021 COMPARISON: 06/10/2021 INDICATION: Pneumonia TECHNIQUE: Single frontal view of the chest is obtained. FINDINGS: The heart size is normal. The pulmonary vasculature is somewhat prominent. Diffuse increased lung markings are present bilaterally. Findings are nonspecific. Correlate for atyp ical pneumonia. Pulmonary edema can be considered. IMPRESSION: 1. Diffuse increased lung markings bilaterally slightly worsening over the interval. Correlate for at ypical pneumonia and pulmonary edema.
[2021-06-13] MEDS: HEPARIN SODIUM,PORCINE/PF 5,000 UNIT/0.5 ML SYRINGE SQ SCH ×2 (11:08→22:07)
[2021-06-13] MEDS: ASCORBIC ACID 500 MG TAB PO SCH ×2 (11:08→22:07)
[2021-06-13 11:17] LABS: Glucose,Whole Blood 414 mg/dL (75-99)
--- NOTE | 2021-06-13 12:01 | P.PN ---
Subjective Progress Note Date: 06/13/21 Principal diagnosis: Acute hypoxic respiratory failure secondary to acute exacerbation of systolic congestive heart failure At this and 85-year-old male patient who follows with Dr. Duff as his primary care provider. He has a history of hyper-lipidemia, hypothyroidism, diabetes mellitus with diabetic neuropathy, coronary artery disease with previous coronary artery bypass grafting 5 in 2006 and subsequent stent placements, chronic UTI secondary to urinary retention and the patient self caths 5 times a day, CVA. He also has stenting to the right lower extremity. He is a former smoker. He was discharged to [facility] on 05/21/2021 following an hospitalization for COVID-19 infection and acute on chronic hypoxemic respiratory failure. He presented here on 06/07/2021 with complaints of generalized weakness and some altered mental status and shortness of breath. EKG revealed sinus rhythm with a right bundle branch block. A cardiogram revealed mildly impaired left ventricular systolic function with ejection fraction 45-50%. Mild to moderate mitral regurgitation. Moderate pulmonary hypertension. Chest x-ray showing bilateral pulmonary infiltrates mainly in the right midlung with milder faint opacities in the remainder the mid lung and lower lung. Urine cultures positive for gram-negative bacilli. White count 19.8. Hemoglobin 9.9. Platelet count 120,000. Sodium 137. Potassium 4.4. BUN 43. Creatinine 1.67. ProBNP 21,700. He has been initiated on ceftriaxone and azithromycin. Lasix 40 mg IVP 1. Currently in a -220 ML balance. He is seen today in consultation on the selective care unit. He is currently resting comfortably in bed. Awake and alert in no acute distress. He denies any worsening shortness of breath, cough or congestion. He is maintaining O2 saturations in the 90s on 5 L high flow nasal cannula. The patient is seen today 06/10/2021 in follow-up on the selective care unit. He is much more awake and alert today. Sitting up in bed. Denies any worsening shortness of breath, cough or congestion. He did have an episode last evening of acute shortness of breath and was given IV diuretics. He is continued on Lasix 40 mg IV every 8 hours. He is in a -1 L balance. He is currently on 10 L high flow nasal cannula. He also states he had some chest discomfort this morning. He is still bronchospastic and wheezing. Some crackles in the posterior bases. Follow-up chest x-ray is pending. Procalcitonin is pending. He remains on Zosyn. The patient is seen today 06/12/2021 in follow-up on the selective care unit. He is awake and alert in no acute distress. Resting fairly comfortably in bed. He is still requiring 5 L high flow nasal cannula to maintain O2 saturations in the 90s. He's been afebrile. Hemodynamically stable. Blood cultures reveal no growth. Sodium 137. Potassium 4.0. BUN 63. Creatinine 2.13. Glucose 266. He is continued on DuoNeb inhalations, Pulmicort and Perforomist inhalations, IV Solu-Medrol. Antibiotics in the form of Zosyn. Heparin for DVT prophylaxis. Remains on IV diuretics. Currently in a -500 ML balance. Reevaluated today on 05/16/2021, patient is basically about the same, continues to be short of breath. Remains on 5 L high flow nasal cannula and obtaining borderline saturations. Nonetheless the patient complained of shortness of breath, intermittent cough, no fever no chills no hemoptysis no chest pain. Remains on diuretics, remains on bronchodilators, I cut down his methylprednisolone to 40 mg IV push every 12 hours. Remains in negative fluid b alance. Nonetheless his chest x-ray continues to show interstitial edema, underlying pneumonia is not entirely ruled out, patient did have recent history of COVID-19 infection Objective - Vital Signs Vital signs: Vital Signs Temp 98.1 F 06/13/21 08:00 Pulse 72 06/13/21 11:37 Resp 18 06/13/21 11:37 BP 107/61 06/13/21 08:00 Pulse Ox 94 L 06/13/21 08:17 Intake & Output 06/12/21 06/13/21 06/13/21 18:59 06:59 18:59 Intake Total 236 200 Output Total 1052 1275 0 Balance -816 -1075 0 Intake: Intake, IV Titration 100 Amount Piperacillin-Tazobactam 3 100 .375 gm In Sodium Chloride 0.9% 100 ml @ 25 mls/hr IVPB Q8HR [facility] Rx# :[id number] Oral 236 100 Output: Urine 1050 1275 Uretheral (Alves) 700 725 Stool 2 0 0 Other: Voiding Method Indwelling Catheter Indwelling Catheter Indwelling Catheter # Voids 3 - Exam Physical Exam revealed an 85-year-old white male in no distress Head: Atraumatic normocephalic HEENT:[Neck is supple.] [No neck masses.] [No thyromegaly.] [No JVD.] Chest: [Symmetrical chest expansion crackles at the bases Cardiac: Distant S1 and S2, no S3 gallop. Abdomen: [Soft, nontender, no megaly, no rebound, no guarding, normal bowel sounds.] Extremities: [No clubbirace of bipedaldema, no cyanosis.] Neurological Exam: [No focal neurologic deficit.] psychiatric: Normal mood affect and normal mental status examination. skin: No rashes. Chronic skin changes noted in the lower extremities. And trace of edema noted - Labs CBC & Chem 7: 06/11/21 09:02 06/13/21 09:23 Labs: Abnormal Lab Results - Last 24 Hours (Table) 06/12/21 06/12/21 06/12/21 Range/Units 16:14 16:27 19:40 Sodium (137-145) mmol/L BUN (9-20) mg/dL Creatinine (0.66-1.25) mg/dL Glucose (74-99) mg/dL POC Glucose (mg/dL) 381 H 371 H 470 H (75-99) mg/dL Calcium (8.4-10.2) mg/dL 06/13/21 06/13/21 06/13/21 Range/Units 07:14 09:23 11:16 Sodium 135 L (137-145) mmol/L BUN 62 H (9-20) mg/dL Creatinine 2.20 H (0.66-1.25) mg/dL Glucose 366 H (74-99) mg/dL POC Glucose (mg/dL) 351 H 414 H (75-99) mg/dL Calcium 7.8 L (8.4-10.2) mg/dL Microbiology - Last 24 Hours (Table) 06/08/21 17:31 Blood Culture - Preliminary Blood No Growth after 96 hours 06/08/21 17:31 Blood Culture - Preliminary Blood No Growth after 96 hours Assessment and Plan Assessment: Impression: Acute hypoxic respiratory failure secondary to acute exacerbation of systolic congestive heart failure Recurrent and acute urinary tract infection sets secondary to Proteus penneri, remains on Zosyn Non-ST segment elevation myocardial infarction History of COVID-19 pneumonia History of coronary artery disease and previous bypass as well as previous stent placement Benign essential hypertension History of underlying COPD Acute on chronic kidney injury, history of stage III chronic kidney disease Recommendation: Reviewed and discussed chest x-ray findings with the patient. Continue diuretics, patient was transitioned to oral Lasix. Continue Zosyn Continue to monitor x-rays of the chest. Continue bronchodilators however I cut down methylprednisolone to 40 mg IV push every 12 hours, sugars continue to be high. Patient is not quite ready for any discharge planning. We'll continue to follow Time with Patient: Less than 30
[2021-06-13] MEDS ORDERED: INSULIN DETEMIR (LEVEMIR) 100 UNIT/ML SYR SQ SCH ×2 (12:45→21:00)
--- NOTE | 2021-06-13 15:02 | P.PN ---
Subjective Progress Note Date: 06/13/21 PROGRESS NOTE The patient is an 85-year-old male with a known history of coronary disease, status post CABG and PCI history of peripheral vascular disease, hypertension and hyperlipidemia who presented with UTI and had troponin elevation. His breathing is stable today, he denies any chest discomfort or significant dyspnea. He is complaining of lower extremities discomfort related to his PAD. He continues to be on oxygen and IV diuretics. He had a recent admission for COVID-19 infection. He continues to be on aspirin once a day, Lipitor 80 mg daily, Coreg 3.125 mg twice a day, Plavix 75 mg daily, Lasix 40 mg IV every 12 hours, insulin, Solu-Medrol June 13: He continues to be dyspneic although stable, his main complaint is the leg discomfort. He denies any chest discomfort, dizziness or palpitations. He continues to be in sinus mechanism with no evidence of malignant arrhythmia. He is laying supine. He continues to be on Coreg 3.125 mg twice a day, aspirin once a day, Lipitor 80 mg daily, Lasix 40 mg twice a day, insulin, Synthroid and Solu-Medrol PHYSICAL EXAMINATION: Blood pressure 146/60 with a heart rate in the 70s LUNGS: Clear to auscultation with mild crackles HEART: Regular rate and rhythm, S1, S2. No S3. systolic murmur at the base ABDOMEN: Soft, nontender, no organomegaly EXTREMETIES: Chronic skin changes with decreased pulses and trace edema, dressing on the right leg LAB: BUN 62, creatinine 2.20, potassium 4.5 IMPRESSION: 1. Recent UTI 2. Non-STEMI related to the infection 3. Status post CABG and PCI 4. Peripheral vascular disease 5. Chronic kidney disease PLAN: 1. Continue present therapy 2. Follow renal functions 3. The patient may benefit from outpatient rehab. 4. shelter prognosis is guarded. Objective - Vital Signs Vital signs: Vital Signs Temp 98.0 F 06/13/21 12:00 Pulse 78 06/13/21 14:00 Resp 20 06/13/21 14:00 BP 146/64 06/13/21 12:00 Pulse Ox 96 06/13/21 12:00 Intake & Output 06/12/21 06/13/21 06/13/21 18:59 06:59 18:59 Intake Total 236 200 Output Total 1052 1275 0 Balance -816 -1075 0 Intake: Intake, IV Titration 100 Amount Piperacillin-Tazobactam 3 100 .375 gm In Sodium Chloride 0.9% 100 ml @ 25 mls/hr IVPB Q8HR [facility] Rx# :[id number] Oral 236 100 Output: Urine 1050 1275 Uretheral (Alves) 700 725 Stool 2 0 0 Other: Voiding Method Indwelling Catheter Indwelling Catheter Indwelling Catheter # Voids 3 - Labs CBC & Chem 7: 06/11/21 09:02 06/13/21 09:23 Labs: Abnormal Lab Results - Last 24 Hours (Table) 06/12/21 06/12/21 06/12/21 Range/Units 16:14 16:27 19:40 Sodium (137-145) mmol/L BUN (9-20) mg/dL Creatinine (0.66-1.25) mg/dL Glucose (74-99) mg/dL POC Glucose (mg/dL) 381 H 371 H 470 H (75-99) mg/dL Calcium (8.4-10.2) mg/dL 06/13/21 06/13/21 06/13/21 Range/Units 07:14 09:23 11:16 Sodium 135 L (137-145) mmol/L BUN 62 H (9-20) mg/dL Creatinine 2.20 H (0.66-1.25) mg/dL Glucose 366 H (74-99) mg/dL POC Glucose (mg/dL) 351 H 414 H (75-99) mg/dL Calcium 7.8 L (8.4-10.2) mg/dL Microbiology - Last 24 Hours (Table) 06/08/21 17:31 Blood Culture - Preliminary Blood No Growth after 96 hours 06/08/21 17:31 Blood Culture - Preliminary Blood No Growth after 96 hours
[2021-06-13 15:54] LABS: Glucose,Whole Blood 411 mg/dL (75-99)
--- NOTE | 2021-06-13 16:15 | P.PN ---
Subjective This is a pleasant 85 years old male with multiple medical problems, he is here in the hospital for multiple medical issues. Currently has been treated for acute systolic CHF and he is currently on IV Lasix and switch him to oral Lasix 40 mg twice a day by cardiology team. Also was some evidence of COPD exacerbation and currently on Solu-Medrol 60 mg. Is covered with antibiotics with Zosyn for possible pulmonary infection and also for his Proteus UTI. He has no evidence of non-STEMI status post CABG and PCI, currently stable. Also other chronic medical problems including PVD and chronic kidney disease stage III. He is complaining of from bilateral feet pain for the last 3-4 years and he still bothering him, he was on gabapentin 200 mg twice a day which is increased today to 300 mg 3 times a day. He states at baseline he walks only little at home with the help of walker, currently evaluated by physical therapy and recommended subacute rehab, he is set to go to [facility] whenever he is clinically stable. His breathing looks comfortable while at rest is needing 5 L/m of oxygen. With no significant dyspnea or chest pain and only little cough. 06/13/2021 Patient states his cough is little better, he still has wheezing or chest exam ination but his oxygen saturation is well kept high 90s on 5 L/m of oxygen. Distal has Alves catheter History of complaining of from bilateral feet pain although he reports some improvement with increasing gabapentin, we will reduce the dose from 300 up to 400 3 times a day Also has been complaining of from constipation and Colace is a started Solu-Medrol dose is lowered to 2 every 12 hours, Levemir dose increased to 20 units twice a day because of high sugar more than 400. Chest x-ray showing atypical pneumonia versus pulmonary edema Patient continued on Zosyn. Repeat labs in the morning Objective - Vital Signs Vital signs: Vital Signs Temp 98.0 F 06/13/21 12:00 Pulse 78 06/13/21 12:00 Resp 20 06/13/21 12:00 BP 146/64 06/13/21 12:00 Pulse Ox 96 06/13/21 12:00 Intake & Output 06/12/21 06/13/21 06/13/21 18:59 06:59 18:59 Intake Total 236 200 Output Total 1052 1275 0 Balance -816 -1075 0 Intake: Intake, IV Titration 100 Amount Piperacillin-Tazobactam 3 100 .375 gm In Sodium Chloride 0.9% 100 ml @ 25 mls/hr IVPB Q8HR [facility] Rx# :[id number] Oral 236 100 Output: Urine 1050 1275 Uretheral (Alves) 700 725 Stool 2 0 0 Other: Voiding Method Indwelling Catheter Indwelling Catheter Indwelling Catheter # Voids 3 - Exam -GENERAL: The patient is alert and oriented x3, not in any acute distress. Well developed, well nourished. Generalized weakness HEENT: Pupils are round and equally reacting to light. EOMI. No scleral icterus. No conjunctival pallor. Normocephalic, atraumatic. No pharyngeal erythema. No thyromegaly. CARDIOVASCULAR: S1 and S2 present. No murmurs, rubs, or gallops. -PULMONARY: Chest is clear to auscultation, no wheezing or crackles. Mild tachypnea ABDOMEN: Soft, nontender, nondistended, normoactive bowel sounds. No palpable organomegaly. MUSCULOSKELETAL: No joint swelling or deformity. -EXTREMITIES: No cyanosis, clubbing, or pedal edema. Left foot superficial wound with no evidence of cellulitis NEUROLOGICAL: Gross neurological examination did not reveal any focal deficits. SKIN: No rashes. no petechiae. - Labs CBC & Chem 7: 06/11/21 09:02 06/13/21 09:23 Labs: Abnormal Lab Results - Last 24 Hours (Table) 06/12/21 06/12/21 06/12/21 Range/Units 16:14 16:27 19:40 Sodium (137-145) mmol/L BUN (9-20) mg/dL Creatinine (0.66-1.25) mg/dL Glucose (74-99) mg/dL POC Glucose (mg/dL) 381 H 371 H 470 H (75-99) mg/dL Calcium (8.4-10.2) mg/dL 06/13/21 06/13/21 06/13/21 Range/Units 07:14 09:23 11:16 Sodium 135 L (137-145) mmol/L BUN 62 H (9-20) mg/dL Creatinine 2.20 H (0.66-1.25) mg/dL Glucose 366 H (74-99) mg/dL POC Glucose (mg/dL) 351 H 414 H (75-99) mg/dL Calcium 7.8 L (8.4-10.2) mg/dL Microbiology - Last 24 Hours (Table) 06/08/21 17:31 Blood Culture - Preliminary Blood No Growth after 96 hours 06/08/21 17:31 Blood Culture - Preliminary Blood No Growth after 96 hours Assessment and Plan Assessment: Systolic CHF Non-STEMI status post CABG and PCI COPD exacerbation Proteus UTI Recent COVID-19 infection Peripheral vascular disease Chronic kidney disease stage III peripheral neuropathy Left foot superficial wound, being followed by wound care Diabetes mellitus Diabetic neuropathy Plan: This is a pleasant 85 male with CHF, COPD, non-STEMI and UTI Continue with Solu-Medrol, Zosyn and Levemir Pulmonary and cardiology team on the case Increased gabapentin Continue with insulin sliding scale and monitored glucose Labs and medication were reviewed.. Continue same treatment. Continue with symptomatic treatment. Resume home medication. Monitor lytes and vitals. DVT and GI prophylaxis. Further recommendations as per clinical course of the patient DVT prophylaxis: Subcutaneous heparin GI Prophylaxis: Ppi PT/OT: Going to [facility] Prognosis is guarded
[2021-06-13] MEDS: GABAPENTIN 400 MG CAP PO SCH ×2 (16:19→22:11)
[2021-06-13 16:50] LABS: Glucose,Whole Blood 399 mg/dL (75-99)
[2021-06-13 20:11] LABS: Glucose,Whole Blood 411 mg/dL (75-99)
[2021-06-13] MEDS: DOCUSATE 100 MG CAP PO SCH (22:07)
[2021-06-13] MEDS: ATORVASTATIN 80 MG TAB PO SCH (22:07)
[2021-06-14] MEDS: PIPERACILLIN-TAZOBACTAM 3.375 GM in SODIUM CHLORIDE 0.9% 100 ML IVPB SCH ×2 (00:30→09:03)
[2021-06-14] MEDS: methylPREDNISolone SOD SUCCI 40 MG/ML 1 ML VIAL IV SCH ×2 (00:30→09:04)
[2021-06-14 06:52] LABS: Glucose,Whole Blood 184 mg/dL (75-99)
[2021-06-14] MEDS ORDERED: INSULIN DETEMIR (LEVEMIR) 100 UNIT/ML SYR SQ SCH ×3 (07:00→21:00)
[2021-06-14] MEDS: carvediloL 3.125 MG TAB PO SCH (07:12)
[2021-06-14] MEDS: LEVOTHYROXINE 50 MCG TAB PO SCH (07:12)
[2021-06-14] MEDS: INSULIN ASPART (NovoLOG) 100 UNIT/ML VIAL SQ SCH ×2 (07:12→13:19)
[2021-06-14] MEDS: FORMOTEROL FUMARATE 20 MCG/2 ML NEBU INHALATION SCH (07:40)
[2021-06-14] MEDS: BUDESONIDE 1 MG/2 ML NEBU INHALATION SCH (07:40)
[2021-06-14] MEDS: IPRATROPIUM-ALBUTEROL 3 ML NEB INHALATION SCH ×3 (07:41→15:42)
[2021-06-14] MEDS ORDERED: INSULIN DETEMIR (LEVEMIR) 100 UNIT/ML SYR SQ ONE ×2 (08:00)
[2021-06-14 08:46] LABS: Basophils # (A) 0.1 k/uL (0-0.2); Basophils % (A) 1 %; Eosinophils % (A) 0 %; HCT 33.4 % (39.0-53.0); HGB 10.6 gm/dL (13.0-17.5); Hypochromasia Moderate; Lymphocytes # (A) 1.2 k/uL (1.0-4.8); Lymphocytes % (A) 12 %; MCH 27.9 pg (25.0-35.0); MCHC 31.6 g/dL (31.0-37.0); MCV 88.1 fL (80.0-100.0); Mean Platelet Volume 8.1; Monocytes # (A) 0.4 k/uL (0-1.0); Monocytes % (A) 4 %; Neutrophils % (A) 82 %; Platelet Count 238 k/uL (150-450); RBC 3.79 m/uL (4.30-5.90); RDW 15.7 % (11.5-15.5); WBC 9.8 k/uL (3.8-10.6)
[2021-06-14 09:03] LABS: Potassium 4.4 mmol/L (3.5-5.1)
[2021-06-14] MEDS: FUROSEMIDE 40 MG TAB PO SCH (09:04)
[2021-06-14] MEDS: CHOLECALCIFEROL 25 MCG (1000 IU) TABLET PO SCH (09:04)
[2021-06-14] MEDS: PANTOPRAZOLE 40 MG/10 ML VIAL IVP SCH (09:04)
[2021-06-14] MEDS: ASCORBIC ACID 500 MG TAB PO SCH (09:04)
[2021-06-14] MEDS: ASPIRIN 81 MG PO SCH (09:04)
[2021-06-14] MEDS: GABAPENTIN 400 MG CAP PO SCH (09:04)
[2021-06-14] MEDS: CLOPIDOGREL 75 MG TAB PO SCH (09:04)
[2021-06-14] MEDS: HEPARIN SODIUM,PORCINE/PF 5,000 UNIT/0.5 ML SYRINGE SQ SCH (09:05)
[2021-06-14] MEDS: ZINC SULFATE 220 MG CAP PO SCH (09:05)
[2021-06-14 10:35] VITALS: PULSE 69; RESP 19
--- NOTE | 2021-06-14 10:49 | P.PN ---
Subjective Progress Note Date: 06/14/21 HISTORY OF PRESENT ILLNESS: This is a 85-year-old male with a past medical history significant for coronary artery disease with previous CABG and PCI, diabetes, hypertension, hyperli pidemia, TIA, and hypothyroidism. Patient follows in the office with Dr. Garcias. We have been asked to see the patient in consultation for abnormal troponins. Patient examined at the bedside. The patient presented to the hospital with generalized weakness and symptoms of a urinary tract infection. The patient denies having any chest pain or pressure. No shortness of breath. No nausea or vomiting. Denies dizziness or lightheadedness. The patient does report tenderness to his bilateral lower extremities. * EKG reveals sinus mechanism with right bundle branch block * Chest xray no active cardiopulmonary disease. There is clearing of mild pulmonary interstitial infiltrates in the lower lung field compared to old exam. * Laboratory data: WBC 16.2. Hemoglobin 10.9. Platelet count 127. Sodium 131. Potassium 4.2. BUN 53. Creatinine 1.52. Lactic acid 1.5. troponin 0.512. 1.270. 4.150. BNP 8790. * Current home cardiac medications include: medication list not updated at the time of this dictation * Most recent echocardiogram obtained in August 2019 revealed ejection fraction 55%, [id number] mitral regurgitation, mild tricuspid regurgitation * Cardiac catheterization history: 2016 revealing severe left main coronary artery disease. Occluded RCA. MEZA to LAD patent. Saphenous vein graft to diagonal was patent. Saphenous vein graft to left circumflex appears to be occluded. The patient underwent PCI to the left circumflex. 06/08/2021 Patient examined this morning at the bedside. He denies chest pain or pressure. He denies SOB. WBC increased to 21 today. Echo reveals ejection fraction 45-50%, basal posterior LV wall hypokinesis, mid posterior LV wall hypokinesis, [id number] mitral regurgitation, mild tricuspid regurgitation, and moderate pulmonary hypertension 06/09/2021 Patient examined this morning at the bedside. Patient denies chest pain or pressure. He denies SOB. Patient is requiring 5L NC to maintain oxygen saturations greater than 92%. Patient was on room air on admission. He is receiving IVF at 60cc/hr. WBC 19.8. BUN 43. Creatinine 1.67. Chest x-ray obtained reveals bilateral pulmonary infiltrates with minimal left pleural e ffusion. 06/10/2021 Patient examined this morning at the bedside. Patient denies chest pain or press ure. He reports SOB this morning. He is on 10-12L HF NC. He has been started on IV lasix 40mg BID. Patient's blood pressure 93/55 this morning. Fluid balance over the last 24 hours is -1 L. 06/11/2021 Patient examined this morning at the bedside. Patient denies chest pain or pressure. He reports shortness of breath this morning but states it is slightly improved from yesterday. His oxygen has been weaned down to 5 L nasal cannula. The patient remains on IV Lasix 40 mg every 8 hours. Patient's creatinine increased today to 2.30. 06/14/2021 Patient examined this morning at the bedside. Patient denies chest pain or pressure. He currently denies shortness of breath. He is on 5 L nasal cannula. The patient has been transitioned to oral Lasix. Vital signs are stable. PHYSICAL EXAM: VITAL SIGNS: Reviewed. GENERAL: Well-developed in no acute distress. HEENT: Head is normocephalic. Pupils are equal, round. Sclerae anicteric. Mucous membranes of the mouth are moist. Neck supple. No JVD or thyromegaly LUNGS: Respirations even and unlabored. Lungs diminished with scattered rhonchi and a few scattered crackles HEART: Regular rate and rhythm. S1 and S2 heard. EXTREMITIES: Normal range of motion. No clubbing or cyanosis. Peripheral pulses intact. Trace lower extremity edema with chronic discoloration and venous wounds. Dressing to right leg. ASSESSMENT: Urinary tract infection Leukocytosis Abnormal troponins, may be secondary to infectious process, cannot rule out non- STEMI Acute on chronic congestive heart failure with borderline/intermediate ejection fraction, 45-50% Acute hypoxic respiratory failure Coronary artery disease with previous CABG and PCI Acute kidney injury Chronic kidney disease Hypertension Hyperlipidemia Diabetes History of TIA Hypothyroidism PLAN: Continue current cardiac medications Patient has been transitioned to oral lasix Pulmonary following Further recommendations pending patient course Nurse practitioner note has been reviewed by physician. Signing provider agrees with the documented findings, assessment, and plan of care. Objective - Vital Signs Vital signs: Vital Signs Temp 97.7 F 06/14/21 08:00 Pulse 80 06/14/21 08:05 Resp 19 06/14/21 08:00 BP 143/66 06/14/21 08:00 Pulse Ox 99 06/14/21 08:00 Intake & Output 06/13/21 06/14/21 06/14/21 18:59 06:59 18:59 Intake Total 500 600 Output Total 800 775 Balance -300 -775 600 Intake: Oral 500 600 Output: Urine 800 775 Stool 0 0 Other: Voiding Method Indwelling Catheter Indwelling Catheter # Bowel Movements 1 - Labs CBC & Chem 7: 06/14/21 08:12 06/14/21 08:12 Labs: Abnormal Lab Results - Last 24 Hours (Table) 06/13/21 06/13/21 06/13/21 Range/Units 11:16 15:52 16:49 RBC (4.30-5.90) m/uL Hgb (13.0-17.5) gm/dL Hct (39.0-53.0) % RDW (11.5-15.5) % Neutrophils # (1.3-7.7) k/uL Carbon Dioxide (22-30) mmol/L BUN (9-20) mg/dL Creatinine (0.66-1.25) mg/dL Glucose (74-99) mg/dL POC Glucose (mg/dL) 414 H 411 H 399 H (75-99) mg/dL Calcium (8.4-10.2) mg/dL 06/13/21 06/14/21 06/14/21 Range/Units 20:05 06:49 08:12 RBC 3.79 L (4.30-5.90) m/uL Hgb 10.6 L (13.0-17.5) gm/dL Hct 33.4 L (39.0-53.0) % RDW 15.7 H (11.5-15.5) % Neutrophils # 8.0 H (1.3-7.7) k/uL Carbon Dioxide (22-30) mmol/L BUN (9-20) mg/dL Creatinine (0.66-1.25) mg/dL Glucose (74-99) mg/dL POC Glucose (mg/dL) 411 H 184 H (75-99) mg/dL Calcium (8.4-10.2) mg/dL 06/14/21 Range/Units 08:12 RBC (4.30-5.90) m/uL Hgb (13.0-17.5) gm/dL Hct (39.0-53.0) % RDW (11.5-15.5) % Neutrophils # (1.3-7.7) k/uL Carbon Dioxide 31 H (22-30) mmol/L BUN 64 H (9-20) mg/dL Creatinine 2.38 H (0.66-1.25) mg/dL Glucose 153 H (74-99) mg/dL POC Glucose (mg/dL) (75-99) mg/dL Calcium 8.0 L (8.4-10.2) mg/dL Microbiology - Last 24 Hours (Table) 06/08/21 17:31 Blood Culture - Preliminary Blood No Growth after 120 hours 06/08/21 17:31 Blood Culture - Preliminary Blood No Growth after 120 hours
--- NOTE | 2021-06-14 11:14 | P.PN ---
Subjective Progress Note Date: 06/14/21 Principal diagnosis: Non-ST segment elevation myocardial infarction. At this and 85-year-old male patient who follows with Dr. Duff as his primary care provider. 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 He also has stenting to the right lower extremity. He is a former smoker. He was discharged to [facility] on 05/21/2021 following an hospitalization for COVID-19 infection and acute on chronic hypoxemic respiratory failure. He presented here on 06/07/2021 with complaints of generalized weakness and some altered mental status and shortness of breath. EKG revealed sinus rhythm with a right bundle branch block. A cardiogram revealed mildly impaired left ventricular systolic function with ejection fraction 45-50%. Mild to moderate mitral regurgitation. Moderate pulmonary hypertension. Chest x-ray showing bilateral pulmonary infiltrates mainly in the right midlung with milder faint opacities in the remainder the mid lung and lower lung. Urine cultures positive for gram-negative bacilli. White count 19.8. Hemoglobin 9.9. Platelet count 120,000. Sodium 137. Potassium 4.4. BUN 43. Creatinine 1.67. ProBNP 21,700. He has been initiated on ceftriaxone and azithromycin. Lasix 40 mg IVP 1. Currently in a -220 ML balance. He is seen today in consultation on the selective care unit. He is currently resting comfortably in bed. Awake and alert in no acute distress. He denies any worsening shortness of breath, cough or congestion. He is maintaining O2 saturations in the 90s on 5 L high flow nasal cannula. The patient is seen today 06/10/2021 in follow-up on the selective care unit. He is much more awake and alert today. Sitting up in bed. Denies any worsening shortness of breath, cough or congestion. He did have an episode last evening of acute shortness of breath and was given IV diuretics. He is continued on Lasix 40 mg IV every 8 hours. He is in a -1 L balance. He is currently on 10 L high flow nasal cannula. He also states he had some chest discomfort this morni ng. He is still bronchospastic and wheezing. Some crackles in the posterior bases. Follow-up chest x-ray is pending. Procalcitonin is pending. He remains on Zosyn. The patient is seen today 06/12/2021 in follow-up on the selective care unit. He is awake and alert in no acute distress. Resting fairly comfortably in bed. He is still requiring 5 L high flow nasal cannula to maintain O2 saturations in the 90s. He's been afebrile. Hemodynamically stable. Blood cultures reveal no growth. Sodium 137. Potassium 4.0. BUN 63. Creatinine 2.13. Glucose 266. He is continued on DuoNeb inhalations, Pulmicort and Perforomist inhalations, IV Solu-Medrol. Antibiotics in the form of Zosyn. Heparin for DVT prophylaxis. Remains on IV diuretics. Currently in a -500 ML balance. Reevaluated today on 05/16/2021, patient is basically about the same, continues to be short of breath. Remains on 5 L high flow nasal cannula and obtaining borderline saturations. Nonetheless the patient complained of shortness of breath, intermittent cough, no fever no chills no hemoptysis no chest pain. Remains on diuretics, remains on bronchodilators, I cut down his methylprednisolone to 40 mg IV push every 12 hours. Remains in negative fluid balance. Nonetheless his chest x-ray continues to show interstitial edema, underlying pneumonia is not entirely ruled out, patient did have recent history of COVID-19 infection Progress note dated 06/14/2021. The patient continues to do relatively well. He is again seen in room 360. The patient remains on 4 L nasal cannula, and saline at 10 mL an hour. There is apparently some consideration for possible discharge today. The patient will be discharged to a rehab facility. From our perspective, the patient could be considered for possible discharge. We will leave that up to the primary service. Today's labs include a white count of 9.8, hemoglobin 10.6, hematocrit 33.4, platelet count 238,000. Sodium 138, potassium 4.4, chlorides 102, CO2 31, anion gap 5, BUN 64, and creatinine 2.38. Calcium is 8.0. Urine on June 07 with positive for Proteus. Chest x-ray from June 13 was reviewed. Objective - Vital Signs Vital signs: Vital Signs Temp 97.7 F 06/14/21 08:00 Pulse 80 06/14/21 08:05 Resp 19 06/14/21 08:00 BP 143/66 06/14/21 08:00 Pulse Ox 99 06/14/21 08:00 Intake & Output 06/13/21 06/14/21 06/14/21 18:59 06:59 18:59 Intake Total 500 600 Output Total 800 775 Balance -300 -775 600 Intake: Oral 500 600 Output: Urine 800 775 Stool 0 0 Other: Voiding Method Indwelling Catheter Indwelling Catheter Indwelling Catheter # Bowel Movements 1 - Exam No acute distress, oriented 3. No acute respiratory distress. No audible wheezing, or use of accessory muscles. 4 L saturation is 99%. HEENT examination is grossly unremarkable. Neck supple. Full range of motion. No adenopathy thyromegaly or neck vein distention. Cardiovascular examination reveals regular rhythm rate. S1-S2 normal. No S3 or S4. No discernible murmur noted. Heart rate is 69 bpm. Blood pressure is 143/66. Lungs reveal bibasilar crackles. Breath sounds are equal bilaterally. No rhonchi. No wheezes. Abdomen soft bowel sounds are heard. No masses or tenderness. Extremities are intact. No cyanosis clubbing or edema. Skin is without rash or lesion. Neurologic examination is brief but nonfocal. - Labs CBC & Chem 7: 06/14/21 08:12 06/14/21 08:12 Labs: Abnormal Lab Results - Last 24 Hours (Table) 06/13/21 06/13/21 06/13/21 Range/Units 11:16 15:52 16:49 RBC (4.30-5.90) m/uL Hgb (13.0-17.5) gm/dL Hct (39.0-53.0) % RDW (11.5-15.5) % Neutrophils # (1.3-7.7) k/uL Carbon Dioxide (22-30) mmol/L BUN (9-20) mg/dL Creatinine (0.66-1.25) mg/dL Glucose (74-99) mg/dL POC Glucose (mg/dL) 414 H 411 H 399 H (75-99) mg/dL Calcium (8.4-10.2) mg/dL 06/13/21 06/14/21 06/14/21 Range/Units 20:05 06:49 08:12 RBC 3.79 L (4.30-5.90) m/uL Hgb 10.6 L (13.0-17.5) gm/dL Hct 33.4 L (39.0-53.0) % RDW 15.7 H (11.5-15.5) % Neutrophils # 8.0 H (1.3-7.7) k/uL Carbon Dioxide (22-30) mmol/L BUN (9-20) mg/dL Creatinine (0.66-1.25) mg/dL Glucose (74-99) mg/dL POC Glucose (mg/dL) 411 H 184 H (75-99) mg/dL Calcium (8.4-10.2) mg/dL 06/14/21 Range/Units 08:12 RBC (4.30-5.90) m/uL Hgb (13.0-17.5) gm/dL Hct (39.0-53.0) % RDW (11.5-15.5) % Neutrophils # (1.3-7.7) k/uL Carbon Dioxide 31 H (22-30) mmol/L BUN 64 H (9-20) mg/dL Creatinine 2.38 H (0.66-1.25) mg/dL Glucose 153 H (74-99) mg/dL POC Glucose (mg/dL) (75-99) mg/dL Calcium 8.0 L (8.4-10.2) mg/dL Microbiology - Last 24 Hours (Table) 06/08/21 17:31 Blood Culture - Preliminary Blood No Growth after 120 hours 06/08/21 17:31 Blood Culture - Preliminary Blood No Growth after 120 hours Assessment and Plan Assessment: Acute hypoxemic respiratory failure secondary to acute exacerbation of systolic and just of heart failure. Recurrent urinary tract infection, secondary to Proteus species. Non-ST segment elevation myocardial infarction. Prior history of coronavirus associated pneumonia. History of CAD, status post previous bypass grafting, as well as stent placement. Essential hypertension. History of underlying COPD. Acute on chronic kidney injury. Plan: Plan dated 06/14/2021. Labs, x-rays, and medications are all reviewed. The chest x-ray from yesterday is reviewed. The patient may be considered for possible discharge to rehab facility today. We'll leave that up to the primary. The patient continues on diuretics, and Zosyn. Additional recommendations and suggestions are forthcoming. Diagnosis is guarded. Sugar is back down in the 180 range. It was much higher yesterday. Additional recommendations and suggestions are forthcoming. The patient will continue be followed if he is not sent to a rehab facility today. Time with Patient: Less than 30
--- NOTE | 2021-06-14 11:33 | P.DS ---
Providers Date of admission: 06/07/21 03:36 Expected date of discharge: 06/14/21 Attending physician: Fred Duff Consults: 06/07/21 03:37 Consult Physician Routine Consulting Provider: Aga Oropeza Consult Reason/Comments: ElevTrop Do you want consulting provider notified?: Yes 06/09/21 07:55 Consult Physician Routine Consulting Provider: Geovani Brewster Reason/Comments: hypoxia Do you want consulting provider notified?: Yes Primary care physician: Fred Duff Hospital Course: Final Diagnoses: Acute on chronic CHF exacerbation, systolic dysfunction, EF 45-50% Acute hypoxic respiratory failure secondary to the above Progressive generalized weakness, status post fall in a patient with history of falls, recently completed 2 weeks of rehab. Elevated troponins, with vague complaints of chest pain.Possible NSTEMI, conservative management as per cardiology . Acute recurrent UTI, Proteus Penneri, in a patient with history of urinary retention with chronic urinary retention,self caths 5 times a day Leukocytosis secondary to the above Diabetes mellitus II, A1C 11.1, further diabetic teaching in clinic, outpatient Chronic kidney disease, stage IV, baseline 1.5 Abnormal troponin, secondary to the above, decreased from recent admission Hyponatremia, resolved Recent COVID-19 infection CAD with history of PR, CABG Hypertension Diabetic neuropathy History of CVA Hospital course:This is an 85-year-old gentleman with past medical history of covid (05/11), CAD,PR, CABG, CVA, chronic urinary retention with self- catheterization , recurrent UTIs -history of Klebsiella, chronic kidney disease stage IV, chronic anemia diabetes mellitus, chronic neuropathy in hands and feet, hypertension, hyperlipidemia, peripheral vascular disease and multiple other medical issues presented to the ER with increasing generalized weakness accompanied by shortness of breath, occasional intermittent chest pain. Denies fever or chills. Denies cough or congestion. Denies nausea vomiting or diarrhea. Denies abdominal pain. Currently denies chest pain, palpitations. Denies lightheadedness dizziness or focal deficits. Reports she did well in rehab 2 weeks, returned home, progressive weakness and sustained another fall.Troponin 0.512, 1.270, 4.150. EKG reported sinus with right bundle branch block. ProBNP 8790. Chest x-ray reported no acute cardiopulmonary disease, clearing of mild pulmonary interstitial infiltrate in the lower lung bernal compared to prior exam.T-max 99.4, WBC 16.2. Sodium 131 BUN 53, creatinine 1.52 ( baseline creatinine 1.5), glucose 318. UA reported moderate bacteria, few WBC clumps, 122 WBCs, large leukocyte esterase, negative for nitrates with 3+ glucose. 06/08/2021 Echo Reported mildly impaired LV function, EF 45-50%, hypokinetic basal and mid posterior LV wall, mild to moderate mitral regurgitation, mild tricuspid regurgitation, moderate pulmonary hypertension. Anticoagulated on heparin drip. Denies chest pain, palpitations or shortness of breath.NPO, for potential cardiac cath today as per cardiology. Continues on Rocephin, for acute UTI, culture pending. 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 T-max 100.7, blood cultures ordered. Labs pending. 06/09/2021 hypoxia worsened, requiring 5-6 L nasal cannula O2 to maintain O2 sats in the high 80s to low 90s. Denies cough, congestion. Chest x-ray pending. Tmax 100.1, labs pending. Currently on azithromycin, ceftriaxone, urine culture finalizing. Blood sugars controlled. 06/10/2021 respiratory function continued to decline, required nonrebreather during the night currently weaned down to 10 L high flow nasal cannula. Received additional Lasix. Maintained on scheduled Lasix IV push. Diuresing well with 24-hour I&O reflecting a negative fluid balance. Yesterday's chest x- ray reported bilateral pulmonary infiltrates, greater on the right. T-max 99, labs pending. Urine culture reporting Proteus Penneri, maintained on Zosyn. Preliminary blood cultures no growth at 24 hours . Borderline hypotension, map ranging 69-85. 06/11/2021 oxygen weaned down to 5 L nasal cannula maintaining O2 sats in the 90s, less rhonchorous. Chest x-ray last night reported mild worsening and lung inflation pattern. Diuresing well on Lasix IV push with 24-hour I&O reflecting a negative fluid balance. Continues on Zosyn for acute UTI , positive for Proteus Penneri. Afebrile. Labs pending. Significant clinical improvement. Denies chest pain, palpitations or increasing shortness of breath. Maintaining O2 sats in the high 90s on 5 L nasal cannula. Cleared by pulmonary and cardiology for discharge. Patient will be discharged to [facility] subacute rehab in a stable condition with guarded prognosis. The impression and plan of care has been dictated as directed. : I performed a history and examination of this patient, discussed the same with the dictator. I agree with the dictator's note ,documented as a scribe. Any additional findings or plans will be noted. Patient Condition at Discharge: Stable Plan - Discharge Summary Discharge Rx Participant: No New Discharge Prescriptions: New Aspirin 81 mg PO DAILY Docusate [Colace] 100 mg PO BID cap carvediloL [Coreg] 3.125 mg PO BID-W/MEALS tab Ipratropium-Albuterol Nebulize [Duoneb 0.5 mg-3 mg/3 ml Soln] 3 ml INHALATION RT-QID #0 ml Furosemide [Lasix] 40 mg PO BID@0900,1600 tab Insulin Detemir (Levemir) [Levemir] 15 unit SQ DAILY@0700 ml Atorvastatin [Lipitor] 80 mg PO HS tab Budesonide [Pulmicort] 1 mg INHALATION RT-BID ml Ipratropium-Albuterol Nebulize [Duoneb 0.5 mg-3 mg/3 ml Soln] 3 ml INHALATION Q4H PRN ml PRN Reason: Shortness Of Breath Or Wheezing Insulin Detemir (Levemir) [Levemir] 10 unit SQ HS ml Gabapentin [Neurontin] 400 mg PO TID #9 cap predniSONE 10 mg PO DIRECTED #30 tab INSULIN LISPRO (HumaLOG) [humaLOG] 0 unit SQ ACHS #10 ml Continue Clopidogrel [Plavix] 75 mg PO DAILY #30 tab Levothyroxine Sodium [Synthroid] 50 mcg PO AC-BRKFST Zinc Sulfate [Orazinc] 220 mg PO DAILY cap Pantoprazole [Protonix] 40 mg PO AC-BRKFST tab Cholecalciferol [Vitamin D3 (25 Mcg = 1000 Iu)] 50 mcg PO DAILY tablet traMADol HCl [Ultram] 50 mg PO TID PRN #9 tab PRN Reason: Moderate Pain Acetaminophen Tab [Tylenol] 650 mg PO Q6HR PRN tab PRN Reason: Mild Pain Or Fever > 100.5 Ascorbic Acid [Vitamin C] 500 mg PO BID tab Discontinued Isosorbide Mononitrate ER [Imdur] 30 mg PO DAILY #30 tab.er.24h Furosemide [Lasix] 40 mg PO DAILY amLODIPine [Norvasc] 10 mg PO DAILY #30 tab Insulin Aspart Protam & Aspart [NovoLOG MIX 70-30 Flexpen] 12 unit SQ HS lisinopriL [Zestril] 5 mg PO DAILY carvediloL [Coreg] 6.25 mg PO BID-W/MEALS Atorvastatin [Lipitor] 40 mg PO HS Insulin Aspart Protam & Aspart [NovoLOG MIX 70-30 Flexpen] 10 unit SQ DAILY Insulin Aspart Protam & Aspart [NovoLOG MIX 70-30 Flexpen] See Protocol SQ HS Discharge Medication List Clopidogrel [Plavix] 75 mg PO DAILY #30 tab 11/20/15 [Rx] Levothyroxine Sodium [Synthroid] 50 mcg PO AC-BRKFST 05/09/21 [History] Acetaminophen Tab [Tylenol] 650 mg PO Q6HR PRN tab 05/11/21 [Rx] Ascorbic Acid [Vitamin C] 500 mg PO BID tab 05/21/21 [Rx] Cholecalciferol [Vitamin D3 (25 Mcg = 1000 Iu)] 50 mcg PO DAILY tablet 05/21/21 [Rx] Pantoprazole [Protonix] 40 mg PO AC-BRKFST tab 05/21/21 [Rx] Zinc Sulfate [Orazinc] 220 mg PO DAILY cap 05/21/21 [Rx] Aspirin 81 mg PO DAILY 06/14/21 [Rx] Atorvastatin [Lipitor] 80 mg PO HS tab 06/14/21 [Rx] Budesonide [Pulmicort] 1 mg INHALATION RT-BID ml 06/14/21 [Rx] Docusate [Colace] 100 mg PO BID cap 06/14/21 [Rx] Furosemide [Lasix] 40 mg PO BID@0900,1600 tab 06/14/21 [Rx] Gabapentin [Neurontin] 400 mg PO TID #9 cap 06/14/21 [Rx] INSULIN LISPRO (HumaLOG) [humaLOG] 0 unit SQ ACHS #10 ml 06/14/21 [Rx] Insulin Detemir (Levemir) [Levemir] 10 unit SQ HS ml 06/14/21 [Rx] Insulin Detemir (Levemir) [Levemir] 15 unit SQ DAILY@0700 ml 06/14/21 [Rx] Ipratropium-Albuterol Nebulize [Duoneb 0.5 mg-3 mg/3 ml Soln] 3 ml INHALATION Q4H PRN ml 06/14/21 [Rx] Ipratropium-Albuterol Nebulize [Duoneb 0.5 mg-3 mg/3 ml Soln] 3 ml INHALATION RT-QID #0 ml 06/14/21 [Rx] carvediloL [Coreg] 3.125 mg PO BID-W/MEALS tab 06/14/21 [Rx] predniSONE 10 mg PO DIRECTED #30 tab 06/14/21 [Rx] traMADol HCl [Ultram] 50 mg PO TID PRN #9 tab 06/14/21 [Rx] Follow up Appointment(s)/Referral(s): Fred Duff DO [Primary Care Provider] - 1 Week (After discharge from subacute rehab) Activity/Diet/Wound Care/Special Instructions: Sal subacute rehab CBC, BMP in 3 days
[2021-06-14 12:27] LABS: Glucose,Whole Blood 194 mg/dL (75-99)
[2021-06-14] MEDS: ACETAMINOPHEN TAB 325 MG TAB PO PRN (12:41)
[2021-06-14 15:36] VITALS: BP 140/63; TEMP 98
[2021-06-14] MEDS: DOCUSATE 100 MG CAP PO SCH (15:38)
[2021-06-14] MEDS ORDERED: PIPERACILLIN-TAZOBACTAM 3.375 GM in SODIUM CHLORIDE 0.9% 100 ML IVPB SCH (21:00)
[2021-06-15] MEDS ORDERED: INSULIN DETEMIR (LEVEMIR) 100 UNIT/ML SYR SQ SCH ×3 (07:00→07:30)
[2021-06-16] MEDS ORDERED: INSULIN DETEMIR (LEVEMIR) 100 UNIT/ML SYR SQ SCH (07:00)
== END 2021-06-14 15:42 | DRG 698 ==
LOC: EC 01:38 → 3SCARD 03:36
PROVIDERS: ADMIT Family Medicine; ATTEND Family Medicine
DX: T83.518A Infection and inflammatory reaction due to other urinary catheter, initial encounter (principal); A41.59 Other Gram-negative sepsis; I21.A1 Myocardial infarction type 2; I50.23 Acute on chronic systolic (congestive) heart failure; J18.9 Pneumonia, unspecified organism; J96.01 Acute respiratory failure with hypoxia; N39.0 Urinary tract infection, site not specified; I13.0 Hypertensive heart and chronic kidney disease with heart failure and stage 1 through stage 4 chronic kidney disease, or unspecified chronic kidney disease; J44.0 Chronic obstructive pulmonary disease with (acute) lower respiratory infection; J44.1 Chronic obstructive pulmonary disease with (acute) exacerbation; N17.9 Acute kidney failure, unspecified; N18.4 Chronic kidney disease, stage 4 (severe); B96.1 Klebsiella pneumoniae [K. pneumoniae] as the cause of diseases classified elsewhere; B96.4 Proteus (mirabilis) (morganii) as the cause of diseases classified elsewhere; E03.9 Hypothyroidism, unspecified; E11.22 Type 2 diabetes mellitus with diabetic chronic kidney disease; E11.42 Type 2 diabetes mellitus with diabetic polyneuropathy; E11.51 Type 2 diabetes mellitus with diabetic peripheral angiopathy without gangrene; E11.621 Type 2 diabetes mellitus with foot ulcer; E11.649 Type 2 diabetes mellitus with hypoglycemia without coma; L97.522 Non-pressure chronic ulcer of other part of left foot with fat layer exposed; I27.20 Pulmonary hypertension, unspecified; L89.890 Pressure ulcer of other site, unstageable; L89.152 Pressure ulcer of sacral region, stage 2; E78.5 Hyperlipidemia, unspecified; E86.0 Dehydration; I25.10 Atherosclerotic heart disease of native coronary artery without angina pectoris; I25.2 Old myocardial infarction; I34.0 Nonrheumatic mitral (valve) insufficiency; I45.10 Unspecified right bundle-branch block; Z86.16 Personal history of COVID-19; Z20.822 Contact with and (suspected) exposure to COVID-19; K59.00 Constipation, unspecified; R33.9 Retention of urine, unspecified; Z79.02 Long term (current) use of antithrombotics/antiplatelets; Z79.4 Long term (current) use of insulin; Z79.890 Hormone replacement therapy; Z79.899 Other long term (current) drug therapy; Z82.49 Family history of ischemic heart disease and other diseases of the circulatory system; Z83.3 Family history of diabetes mellitus; Z86.73 Personal history of transient ischemic attack (TIA), and cerebral infarction without residual deficits; Z87.01 Personal history of pneumonia (recurrent); Z87.440 Personal history of urinary (tract) infections; Z87.891 Personal history of nicotine dependence; Z91.81 History of falling; Z95.1 Presence of aortocoronary bypass graft; Z95.5 Presence of coronary angioplasty implant and graft; Z96.1 Presence of intraocular lens; Z98.41 Cataract extraction status, right eye; Z98.42 Cataract extraction status, left eye; Z91.041 Radiographic dye allergy status; Z98.890 Other specified postprocedural states
CPT/HCPCS: 36415; 71045; 80048; 80053; 80061; 81001; 82550; 83036; 83605; 83735; 83880; 84100; 84145; 84484; 85025; 85027; 85610; 85730; 87040; 87077; 87086; 87186; 87635; 93005; 93306; 94640; 94760; 96361; 96374; 99285

== ENCOUNTER 2021-06-25 11:57 | Inpatient (IN) | payer MEDICARE, BC ==
[2021-06-25 12:25] LABS: Glucose,Whole Blood 180 mg/dL (75-99)
--- NOTE | 2021-06-25 12:38 | ED ---
General Adult HPI - General Chief complaint: Recheck/Abnormal Lab/Rx Stated complaint: R upper arm pain Time Seen by Provider: 06/25/21 12:05 Source: patient, EMS, RN notes reviewed, old records reviewed Mode of arrival: EMS Limitations: physical limitation - History of Present Illness Initial comments: This is an 85-year-old male who comes in because he is having twitching of his body about every 15-30 seconds. Patient also complains of right shoulder pain which she has been complaining about for a while. Patient is alert and oriented 4. Patient states he didn't request come to the hospital. Patient denies chest pain difficulty breathing shortness of breath. Patient denies any fever patient denies cough patient denies nausea vomiting diarrhea. Patient denies any other symptoms at this time. I spoke with the primary medical care doctor he states he was in the hospital recently for an NSTEMI and urinary tract infection. He also was recently admitted hypoglycemia. - Related Data Home Medications Medication Instructions Recorded Confirmed Levothyroxine Sodium [Synthroid] 50 mcg PO DAILY@0605/09/21 06/25/21 Acetaminophen Tab [Tylenol] 650 mg PO Q6H PRN 06/22/21 06/25/21 Ascorbic Acid [Vitamin C] 500 mg PO BID@0800,169906/22/21 06/25/21 Aspirin 81 mg PO DAILY@169906/22/21 06/25/21 Budesonide [Pulmicort] 1 mg INHALATION RT-BID@0800,169906/22/21 06/25/21 Cholecalciferol [Vitamin D3 (25 50 mcg PO DAILY@169906/22/21 06/25/21 Mcg = 1000 Iu)] Clopidogrel [Plavix] 75 mg PO DAILY@79906/22/21 06/25/21 Docusate [Colace] 100 mg PO BID@0800,169906/22/21 06/25/21 Furosemide [Lasix] 40 mg PO BID@0800,169906/22/21 06/25/21 Isosorbide Mononitrate ER [Imdur] 30 mg PO DAILY@0800 06/22/21 06/25/21 Magnesium Hydroxide [Milk of 7,200 mg PO Q48H PRN 06/22/21 06/25/21 Magnesia Concentrate] Na Phos,M-B/Na Phos,Di-Ba [Fleet 133 ml RECTAL DAILY PRN 06/22/21 06/25/21 Adult] Nitroglycerin Sl Tabs [Nitrostat] 0.4 mg SL Q5M PRN 06/22/21 06/25/21 Pantoprazole [Protonix] 40 mg PO DAILY@0600 06/22/21 06/25/21 Zinc Sulfate [Orazinc] 220 mg PO DAILY@1700 06/22/21 06/25/21 bisacodyL [Dulcolax] 10 mg RECTAL DAILY PRN 06/22/21 06/25/21 carvediloL [Coreg] 3.125 mg PO BID@0800,1700 06/22/21 06/25/21 metOLazone 2.5 mg PO MOWEFR@0600 06/22/21 06/25/21 INSULIN LISPRO (HumaLOG) [humaLOG] See Protocol SQ ACHS 06/25/21 06/25/21 Ipratropium-Albuterol Nebulize 3 ml INHALATION RT-Q4H PRN 06/25/21 06/25/21 [Duoneb 0.5 mg-3 mg/3 ml Soln] Previous Rx's Medication Instructions Recorded Atorvastatin [Lipitor] 80 mg PO HS tab 06/14/21 Ipratropium-Albuterol Nebulize 3 ml INHALATION RT-QID #0 ml 06/14/21 [Duoneb 0.5 mg-3 mg/3 ml Soln] Gabapentin [Neurontin] 400 mg PO TID@0600,1400,2100 #9 cap 06/23/21 HYDROcodone/APAP 5-325MG [[place] 1 tab PO Q6H PRN #12 tab 06/23/21 5-325] Insulin Detemir (Levemir) [Levemir] 10 unit SQ HS #0 06/23/21 Allergies Allergy/AdvReac Type Severity Reaction Status Date / Time Iodinated Contrast Media Allergy Rash/Hives Verified 06/25/21 13:56 Review of Systems ROS Statement: Those systems with pertinent positive or pertinent negative responses have been documented in the HPI. ROS Other: All systems not noted in ROS Statement are negative. Past Medical History Past Medical History: Coronary Artery Disease (CAD), Chest Pain / Angina, CVA/TIA, Diabetes Mellitus, Hypertension, Myocardial Infarction ([place]), Renal Disease, Vascular Disorder Additional Past Medical History / Comment(s): Pt recently admitted to [facility] on 05/14/21 with generalized weakness/UTI/Klebsiella/abnormal potassium levels. Other hx: Urinary retention requiring self-catheterization, pt thinks possible from effects from stroke as well as L arm/leg weakness, IDDM type II, bilateral neuropathy of hands and feet, PVD, [place] - 04/09/16, diabetic nephropathy CKD stage III/IV, normocytic anemia, UTIs Last Myocardial Infarction Date:: 2016 History of Any Multi-Drug Resistant Organisms: None Reported Past Surgical History: Coronary Bypass/CABG, Heart Catheterization, Heart Catheterization With Stent Additional Past Surgical History / Comment(s): 5 VESSEL BYPASS 2006, stent RT leg , arthrectomy/stent March 2016, bilateral cataract removal with lens implants Past Anesthesia/Blood Transfusion Reactions: No Reported Reaction Date of Last Stent Placement:: 2016 Past Psychological History: No Psychological Hx Reported Smoking Status: Former smoker Past Alcohol Use History: None Reported Past Drug Use History: None Reported - Past Family History Brother(s) Family Medical History: Myocardial Infarction ([place]) Mother Family Medical History: Diabetes Mellitus Additional Family Medical History / Comment(s): AT AGE 93 Father Family Medical History: Myocardial Infarction ([place]) Additional Family Medical History / Comment(s): AT AGE 83 FROM [place]. General Exam - General Exam Comments Initial Comments: GENERAL: Patient is well-developed and well-nourished. Patient is nontoxic and well- hydrated and is in mild distress. ENT: Neck is soft and supple. No significant lymphadenopathy is noted. Oropharynx is clear. Moist mucous membranes. Neck has full range of motion without eliciting any pain. EYES: The sclera were anicteric and conjunctiva were pink and moist. Extraocular movements were intact and pupils were equal round and reactive to light. Eyelids were unremarkable. PULMONARY: Unlabored respirations. Good breath sounds bilaterally. No audible rales rhonchi or wheezing was noted. CARDIOVASCULAR: There is a regular rate and rhythm without any murmurs gallops or rubs. ABDOMEN: Soft and nontender with normal bowel sounds. SKIN: Skin is clear with no lesions or rashes and otherwise unremarkable. NEUROLOGIC: Patient is alert and oriented x3. Cranial nerves II through XII are grossly intact. Motor and sensory are also intact. Normal speech, volume and content. Symmetrical smile. MUSCULOSKELETAL: Normal extremities with adequate strength and full range of motion. Patient has no specific area of tenderness on the shoulder and he has full range of motion of the shoulder. LYMPHATICS: No significant lymphadenopathy is noted PSYCHIATRIC: Normal psychiatric evaluation. Limitations: physical limitation Course Vital Signs 06/25/21 06/25/21 12:04 13:20 Temperature 99.2 F Pulse Rate 76 78 Respiratory 18 18 Rate Blood Pressure 108/51 119/72 O2 Sat by Pulse 94 L 98 Oximetry Medical Decision Making - Medical Decision Making EKG shows sinus rhythm at 75 bpm [place] interval is 190 QRS is under 4 QT interval 4:30 QTC is 459. Patient's right bundle branch block. Patient's EKG is very similar to previous but different from EKG approximately 2 weeks ago. He EKG is changed in the sense that it has ST segment depression and T-wave inversions in precordial leads V4 V5 and V6 which were not seen 2 weeks ago. But was seen 2 days ago Chest x-ray shows signs of pulmonary edema. I did give the patient a little bit of Lasix. Since the patient was anemic I was not started the patient on heparin at this time. I will consult cardiology. I spoke with the [facility] significant the patient admitted the patient wrote admitting orders. - Lab Data Result diagrams: 06/25/21 12:28 06/25/21 12:28 Lab Results 06/25/21 06/25/21 06/25/21 Range/Units 12:24 12:28 12:28 WBC 9.7 (3.8-10.6) k/uL RBC 2.84 L (4.30-5.90) m/uL Hgb 7.8 L (13.0-17.5) gm/dL Hct 24.2 L (39.0-53.0) % MCV 85.1 (80.0-100.0) fL MCH 27.6 (25.0-35.0) pg MCHC 32.4 (31.0-37.0) g/dL RDW 16.7 H (11.5-15.5) % Plt Count 221 (150-450) k/uL MPV 7.8 Neutrophils % 83 % Lymphocytes % 12 % Monocytes % 4 % Eosinophils % 0 % Basophils % 0 % Neutrophils # 8.1 H (1.3-7.7) k/uL Lymphocytes # 1.2 (1.0-4.8) k/uL Monocytes # 0.4 (0-1.0) k/uL Eosinophils # 0.0 (0-0.7) k/uL Basophils # 0.0 (0-0.2) k/uL Anisocytosis Slight Sodium 135 L (137-145) mmol/L Potassium 3.8 (3.5-5.1) mmol/L Chloride 98 (98-107) mmol/L Carbon Dioxide 33 H (22-30) mmol/L Anion Gap 4 mmol/L BUN 80 H (9-20) mg/dL Creatinine 2.04 H (0.66-1.25) mg/dL Est GFR (CKD-EPI)AfAm 34 (>60 ml/min/1.73 sqM) Est GFR (CKD-EPI)NonAf 29 (>60 ml/min/1.73 sqM) Glucose 155 H (74-99) mg/dL POC Glucose (mg/dL) 180 H (75-99) mg/dL POC Glu Machine Package Sealer ID Desi Daniels Calcium 7.9 L (8.4-10.2) mg/dL Total Bilirubin 0.8 (0.2-1.3) mg/dL AST 35 (17-59) U/L ALT 20 (4-49) U/L Alkaline Phosphatase 90 (38-126) U/L Troponin I (0.000-0.034) ng/mL NT-Pro-B Natriuret Pep pg/mL Total Protein 5.0 L (6.3-8.2) g/dL Albumin 2.3 L (3.5-5.0) g/dL Urine Color Urine Appearance (Clear) Urine pH (5.0-8.0) Ur Specific [place] (1.001-1.035) Urine Protein (Negative) Urine Glucose (UA) (Negative) Urine Ketones (Negative) Urine Blood (Negative) Urine Nitrite (Negative) Urine Bilirubin (Negative) Urine Urobilinogen (<2.0) mg/dL Ur Leukocyte Esterase (Negative) Urine RBC (0-5) /hpf Urine WBC (0-5) /hpf Urine Bacteria (None) /hpf Hyaline Casts (0-2) /lpf Urine Mucus (None) /hpf Stool Occult Blood (Negative) 06/25/21 06/25/21 06/25/21 Range/Units 12:28 12:28 12:38 WBC (3.8-10.6) k/uL RBC (4.30-5.90) m/uL Hgb (13.0-17.5) gm/dL Hct (39.0-53.0) % MCV (80.0-100.0) fL MCH (25.0-35.0) pg MCHC (31.0-37.0) g/dL RDW (11.5-15.5) % Plt Count (150-450) k/uL MPV Neutrophils % % Lymphocytes % % Monocytes % % Eosinophils % % Basophils % % Neutrophils # (1.3-7.7) k/uL Lymphocytes # (1.0-4.8) k/uL Monocytes # (0-1.0) k/uL Eosinophils # (0-0.7) k/uL Basophils # (0-0.2) k/uL Anisocytosis Sodium (137-145) mmol/L Potassium (3.5-5.1) mmol/L Chloride (98-107) mmol/L Carbon Dioxide (22-30) mmol/L Anion Gap mmol/L BUN (9-20) mg/dL Creatinine (0.66-1.25) mg/dL Est GFR (CKD-EPI)AfAm (>60 ml/min/1.73 sqM) Est GFR (CKD-EPI)NonAf (>60 ml/min/1.73 sqM) Glucose (74-99) mg/dL POC Glucose (mg/dL) (75-99) mg/dL POC Glu Machine Package Sealer ID Calcium (8.4-10.2) mg/dL Total Bilirubin (0.2-1.3) mg/dL AST (17-59) U/L ALT (4-49) U/L Alkaline Phosphatase (38-126) U/L Troponin I 2.970 H* (0.000-0.034) ng/mL NT-Pro-B Natriuret Pep 50390 pg/mL Total Protein (6.3-8.2) g/dL Albumin (3.5-5.0) g/dL Urine Color Light Yellow Urine Appearance Clear (Clear) Urine pH 5.5 (5.0-8.0) Ur Specific [place] 1.010 (1.001-1.035) Urine Protein Negative (Negative) Urine Glucose (UA) Negative (Negative) Urine Ketones Negative (Negative) Urine Blood Negative (Negative) Urine Nitrite Negative (Negative) Urine Bilirubin Negative (Negative) Urine Urobilinogen <2.0 (<2.0) mg/dL Ur Leukocyte Esterase Small H (Negative) Urine RBC 3 (0-5) /hpf Urine WBC 3 (0-5) /hpf Urine Bacteria Rare H (None) /hpf Hyaline Casts 3 H (0-2) /lpf Urine Mucus Rare H (None) /hpf Stool Occult Blood (Negative) 06/25/21 Range/Units 13:50 WBC (3.8-10.6) k/uL RBC (4.30-5.90) m/uL Hgb (13.0-17.5) gm/dL Hct (39.0-53.0) % MCV (80.0-100.0) fL MCH (25.0-35.0) pg MCHC (31.0-37.0) g/dL RDW (11.5-15.5) % Plt Count (150-450) k/uL MPV Neutrophils % % Lymphocytes % % Monocytes % % Eosinophils % % Basophils % % Neutrophils # (1.3-7.7) k/uL Lymphocytes # (1.0-4.8) k/uL Monocytes # (0-1.0) k/uL Eosinophils # (0-0.7) k/uL Basophils # (0-0.2) k/uL Anisocytosis Sodium (137-145) mmol/L Potassium (3.5-5.1) mmol/L Chloride (98-107) mmol/L Carbon Dioxide (22-30) mmol/L Anion Gap mmol/L BUN (9-20) mg/dL Creatinine (0.66-1.25) mg/dL Est GFR (CKD-EPI)AfAm (>60 ml/min/1.73 sqM) Est GFR (CKD-EPI)NonAf (>60 ml/min/1.73 sqM) Glucose (74-99) mg/dL POC Glucose (mg/dL) (75-99) mg/dL POC Glu Machine Package Sealer ID Calcium (8.4-10.2) mg/dL Total Bilirubin (0.2-1.3) mg/dL AST (17-59) U/L ALT (4-49) U/L Alkaline Phosphatase (38-126) U/L Troponin I (0.000-0.034) ng/mL NT-Pro-B Natriuret Pep pg/mL Total Protein (6.3-8.2) g/dL Albumin (3.5-5.0) g/dL Urine Color Urine Appearance (Clear) Urine pH (5.0-8.0) Ur Specific [place] (1.001-1.035) Urine Protein (Negative) Urine Glucose (UA) (Negative) Urine Ketones (Negative) Urine Blood (Negative) Urine Nitrite (Negative) Urine Bilirubin (Negative) Urine Urobilinogen (<2.0) mg/dL Ur Leukocyte Esterase (Negative) Urine RBC (0-5) /hpf Urine WBC (0-5) /hpf Urine Bacteria (None) /hpf Hyaline Casts (0-2) /lpf Urine Mucus (None) /hpf Stool Occult Blood Negative (Negative) Critical Care Time Critical Care Time: Yes Total Critical Care Time: 35 Disposition Clinical Impression: Non-STEMI (non-ST elevated myocardial infarction), Anemia, Renal insufficiency, Dehydration, Pulmonary edema Disposition: ADMITTED IP TO THIS [facility] Time of Disposition: 13:59
--- NOTE | 2021-06-25 13:02 | XR ---
EXAMINATION TYPE: XR shoulder complete RT DATE OF EXAM: 06/25/2021 COMPARISON: NONE HISTORY: Pain TECHNIQUE: Three views are submitted. FINDINGS: The osseous structures are intact. There is no acute fracture or dislocation. Mild hypertrophic turner ge of the AC joint noted with inferior spurring of the acromion. Diffuse lung disease noted incidenta lly. IMPRESSION: 1. Mild AC joint arthropathy. There is a spur extending from the inferior acromion. 2. Diffuse lung disease with nodularity seen. Recommend standard chest x-ray to evaluate.
[2021-06-25 13:09] LABS: Anisocytosis Slight; Basophils % (A) 0 %; Eosinophils % (A) 0 %; HCT 24.2 % (39.0-53.0); HGB 7.8 gm/dL (13.0-17.5); Lymphocytes # (A) 1.2 k/uL (1.0-4.8); Lymphocytes % (A) 12 %; MCH 27.6 pg (25.0-35.0); MCHC 32.4 g/dL (31.0-37.0); MCV 85.1 fL (80.0-100.0); Mean Platelet Volume 7.8; Monocytes # (A) 0.4 k/uL (0-1.0); Monocytes % (A) 4 %; Neutrophils # (A) 8.1 k/uL (1.3-7.7); Neutrophils % (A) 83 %; Platelet Count 221 k/uL (150-450); RBC 2.84 m/uL (4.30-5.90); RDW 16.7 % (11.5-15.5); WBC 9.7 k/uL (3.8-10.6)
--- NOTE | 2021-06-25 13:13 | XR ---
EXAMINATION TYPE: XR chest 2V DATE OF EXAM: 06/25/2021 COMPARISON: 06/13/2021 HISTORY: Shortness of breath TECHNIQUE: Frontal and lateral views of the chest are obtained. FINDINGS: There is mild cardiomegaly and moderate pulmonary vascular congestion. There are median st ernotomy wires and prior CABG surgery. The findings are most consistent with mild to moderate CHF. There is no pneumothorax. The osseous structures are intact IMPRESSION: Findings most consistent with mild to moderate CHF.
[2021-06-25 13:17] LABS: Albumin 2.3 g/dL (3.5-5.0); Calcium 7.9 mg/dL (8.4-10.2); Potassium 3.8 mmol/L (3.5-5.1); Total Bilirubin 0.8 mg/dL (0.2-1.3)
[2021-06-25 13:25] LABS: Appearance,Urine Clear (Clear); Bacteria,Urine Rare /hpf; Bilirubin,Urine Negative (Negative); Blood,Urine Negative (Negative); Color,Urine Light Yellow; Glucose,Urine (UA) Negative (Negative); Hyaline Casts,Urine 3 /lpf (0-2); Ketones,Urine Negative (Negative); Leukocyte Esterase,Urine Small (Negative); Mucus,Urine Rare /hpf; Nitrite,Urine Negative (Negative); PH, Urine 5.5 (5.0-8.0); Protein,Urine Negative (Negative); RBC,Urine 3 /hpf (0-5); Urobilinogen,Urine <2.0 mg/dL (<2.0); WBC,Urine 3 /hpf (0-5)
[2021-06-25] MEDS ORDERED: NITROGLYCERIN SL TABS 0.4 MG TAB SUBLINGUAL PRN (13:59)
[2021-06-25] MEDS ORDERED: FUROSEMIDE 10 MG/ML 2 ML VIAL IV ONE (14:01)
[2021-06-25 15:11] LABS: Glucose,Whole Blood 187 mg/dL (75-99)
[2021-06-25] MEDS ORDERED: MAGNESIUM HYDROXIDE 2,400 MG/10 ML CUP PO PRN (16:14)
[2021-06-25] MEDS ORDERED: IPRATROPIUM-ALBUTEROL 3 ML NEB INHALATION PRN (16:14)
[2021-06-25] MEDS ORDERED: ASPIRIN 81 MG PO SCH (17:00)
[2021-06-25 20:48] LABS: Glucose,Whole Blood 211 mg/dL (75-99)
[2021-06-25] MEDS: IPRATROPIUM-ALBUTEROL 3 ML NEB INHALATION SCH (20:48)
[2021-06-25] MEDS: BUDESONIDE 1 MG/2 ML NEBU INHALATION SCH (20:49)
[2021-06-25 20:51] LABS: Anisocytosis Slight; HCT 24.2 % (39.0-53.0); HGB 7.8 gm/dL (13.0-17.5); Hypochromasia Slight; MCHC 32.2 g/dL (31.0-37.0); MCV 86.9 fL (80.0-100.0); Mean Platelet Volume 8.5; Platelet Count 197 k/uL (150-450); RBC 2.78 m/uL (4.30-5.90); RDW 16.7 % (11.5-15.5); WBC 12.1 k/uL (3.8-10.6)
[2021-06-25] MEDS: CHOLECALCIFEROL 25 MCG (1000 IU) TABLET PO SCH (21:40)
[2021-06-25] MEDS: carvediloL 3.125 MG TAB PO SCH (21:40)
[2021-06-25] MEDS: DOCUSATE 100 MG CAP PO SCH (21:40)
[2021-06-25] MEDS: ZINC SULFATE 220 MG CAP PO SCH (21:41)
[2021-06-25] MEDS: ATORVASTATIN 80 MG TAB PO SCH (21:41)
[2021-06-25] MEDS: INSULIN DETEMIR (LEVEMIR) 100 UNIT/ML SYR SQ SCH (21:41)
[2021-06-25] MEDS: PANTOPRAZOLE 40 MG/10 ML VIAL IVP SCH (21:46)
[2021-06-26 00:06] LABS: Anisocytosis Slight; HCT 23.6 % (39.0-53.0); HGB 7.5 gm/dL (13.0-17.5); Hypochromasia Slight; MCH 27.8 pg (25.0-35.0); MCHC 32.1 g/dL (31.0-37.0); MCV 86.7 fL (80.0-100.0); Mean Platelet Volume 7.8; Platelet Count 197 k/uL (150-450); RBC 2.72 m/uL (4.30-5.90); RDW 16.7 % (11.5-15.5); WBC 11.5 k/uL (3.8-10.6)
[2021-06-26 05:32] LABS: Glucose,Whole Blood 138 mg/dL (75-99)
[2021-06-26] MEDS: HYDROcodone/APAP 5-325MG 1 EACH TAB PO PRN ×4 (05:56→23:06)
[2021-06-26] MEDS: LEVOTHYROXINE 50 MCG TAB PO SCH (05:56)
[2021-06-26] MEDS ORDERED: CLOPIDOGREL 75 MG TAB PO SCH (08:00)
[2021-06-26] MEDS: BUDESONIDE 1 MG/2 ML NEBU INHALATION SCH ×2 (08:03→16:06)
[2021-06-26] MEDS: IPRATROPIUM-ALBUTEROL 3 ML NEB INHALATION SCH ×4 (08:03→19:19)
[2021-06-26] MEDS ORDERED: ASPIRIN 325 MG TAB PO SCH (09:00)
[2021-06-26 09:01] LABS: Chol/HDL Ratio 2.66 Ratio; LDL Cholesterol,Calculated 43.6 mg/dL (0.0-131.0); VLDL Calculation 14.86 mg/dL (5.00-40.00)
[2021-06-26] MEDS: PANTOPRAZOLE 40 MG/10 ML VIAL IVP SCH (10:04)
[2021-06-26] MEDS: DOCUSATE 100 MG CAP PO SCH ×2 (10:04→17:49)
[2021-06-26] MEDS: carvediloL 3.125 MG TAB PO SCH ×2 (10:05→17:49)
[2021-06-26 11:51] LABS: Glucose,Whole Blood 191 mg/dL (75-99)
[2021-06-26] MEDS: ISOSORBIDE MONONITRATE ER 30 MG TAB.ER.24H PO SCH (12:13)
--- NOTE | 2021-06-26 14:37 | P.HPIM ---
History of Present Illness H&P Date: 06/25/21 Chief Complaint: R upper arm pain 85-year-old male who comes in because he is having twitching of his body about every 15-30 seconds. Patient also complains of right shoulder pain which she has been complaining about for a while. Patient is alert and oriented 4. Patient states he didn't request come to the hospital. Patient denies chest pain difficulty breathing shortness of breath. Patient denies any fever patient denies cough patient denies nausea vomiting diarrhea. Patient denies any other symptoms at this time. I spoke with the primary medical care doctor he states he was in the hospital recently for an NSTEMI and urinary tract infection. He also was recently admitted hypoglycemia. EKG shows sinus rhythm at 75 bpm [place] interval is 190 QRS is under 4 QT interval 4:30 QTC is 459. Patient's right bundle branch block. Patient's EKG is very similar to previous but different from EKG approximately 2 weeks ago. EKG is changed in the sense that it has ST segment depression and T-wave inversions in precordial leads V4 V5 and V6 which were not seen 2 weeks ago. But was seen 2 days ago Chest x-ray shows signs of pulmonary edema. Patient was given Lasix. Patient was anemic and was not started on heparin at this time. Will consult cardiology. Review of Systems REVIEW OF SYSTEMS: CONSTITUTIONAL: No fever, no malaise, no fatigue. HEENT: No recent visual problems or hearing problems. Denied any sore throat. CARDIOVASCULAR: No chest pain, orthopnea, PND, no palpitations, no syncope. PULMONARY: No shortness of breath, no cough, no hemoptysis. GASTROINTESTINAL: No diarrhea, no nausea, no vomiting, no abdominal pain. NEUROLOGICAL: No headaches, no weakness, no numbness. HEMATOLOGICAL: Denies any bleeding or petechiae. GENITOURINARY: Denies any burning micturition, frequency, or urgency. MUSCULOSKELETAL/RHEUMATOLOGICAL: Denies any joint pain, swelling, or any muscle pain. ENDOCRINE: Denies any polyuria or polydipsia. The rest of the 14-point review of systems is negative. Past Medical History Past Medical History: Coronary Artery Disease (CAD), Chest Pain / Angina, CVA/TIA, Diabetes Mellitus, Hypertension, Myocardial Infarction ([place]), Renal Disease, Vascular Disorder Additional Past Medical History / Comment(s): Pt recently admitted to [facility] on 05/14/21 with generalized weakness/UTI/Klebsiella/abnormal potassium levels. Other hx: Urinary retention requiring self-catheterization, pt thinks possible from effects from stroke as well as L arm/leg weakness, IDDM type II, bilateral neuropathy of hands and feet, PVD, [place] - 04/09/16, diabetic nephropathy CKD stage III/IV, normocytic anemia, UTIs Last Myocardial Infarction Date:: 2016 History of Any Multi-Drug Resistant Organisms: None Reported Past Surgical History: Coronary Bypass/CABG, Heart Catheterization, Heart Catheterization With Stent Additional Past Surgical History / Comment(s): 5 VESSEL BYPASS 2006, stent RT leg , arthrectomy/stent March 2016, bilateral cataract removal with lens implants Past Anesthesia/Blood Transfusion Reactions: No Reported Reaction Date of Last Stent Placement:: 2016 Past Psychological History: No Psychological Hx Reported Smoking Status: Former smoker Past Alcohol Use History: None Reported Past Drug Use History: None Reported - Past Family History Brother(s) Family Medical History: Myocardial Infarction ([place]) Mother Family Medical History: Diabetes Mellitus Additional Family Medical History / Comment(s): AT AGE 93 Father Family Medical History: Myocardial Infarction ([place]) Additional Family Medical History / Comment(s): AT AGE 83 FROM [place]. Medications and Allergies Home Medications Medication Instructions Recorded Confirmed Type Levothyroxine Sodium [Synthroid] 50 mcg PO DAILY@0600 05/09/21 06/25/21 History Atorvastatin [Lipitor] 80 mg PO HS tab 06/14/21 06/25/21 Rx Ipratropium-Albuterol Nebulize 3 ml INHALATION RT-QID #0 ml 06/14/21 06/25/21 Rx [Duoneb 0.5 mg-3 mg/3 ml Soln] Acetaminophen Tab [Tylenol] 650 mg PO Q6H PRN 06/22/21 06/25/21 History Ascorbic Acid [Vitamin C] 500 mg PO BID@0800,1700 06/22/21 06/25/21 History Aspirin 81 mg PO DAILY@169906/22/21 06/25/21 History Budesonide [Pulmicort] 1 mg INHALATION RT-BID@0800,1700 06/22/21 06/25/21 History Cholecalciferol [Vitamin D3 (25 50 mcg PO DAILY@169906/22/2122 History Mcg = 1000 Iu)] Clopidogrel [Plavix] 75 mg PO DAILY@0800 06/22/21 06/25/21 History Docusate [Colace] 100 mg PO BID@0800,1700 06/22/21 06/25/21 History Furosemide [Lasix] 40 mg PO BID@0800,1700 06/22/21 06/25/21 History Isosorbide Mononitrate ER [Imdur] 30 mg PO DAILY@0800 06/22/21 06/25/21 History Magnesium Hydroxide [Milk of 7,200 mg PO Q48H PRN 06/22/21 06/25/21 History Magnesia Concentrate] Na Phos,M-B/Na Phos,Di-Ba [Fleet 133 ml RECTAL DAILY PRN 06/22/21 06/25/21 History Adult] Nitroglycerin Sl Tabs [Nitrostat] 0.4 mg SL Q5M PRN 06/22/21 06/25/21 History Pantoprazole [Protonix] 40 mg PO DAILY@0600 06/22/21 06/25/21 History Zinc Sulfate [Orazinc] 220 mg PO DAILY@1700 06/22/21 06/25/21 History bisacodyL [Dulcolax] 10 mg RECTAL DAILY PRN 06/22/21 06/25/21 History carvediloL [Coreg] 3.125 mg PO BID@0800,1700 06/22/21 06/25/21 History metOLazone 2.5 mg PO MOWEFR@0600 06/22/21 06/25/21 History Gabapentin [Neurontin] 400 mg PO TID@0600,1400,2100 #9 cap 06/23/21 06/25/21 Rx HYDROcodone/APAP 5-325MG [[place] 1 tab PO Q6H PRN #12 tab 06/23/21 06/25/21 Rx 5-325] Insulin Detemir (Levemir) [Levemir] 10 unit SQ HS #0 06/23/21 06/25/21 Rx INSULIN LISPRO (HumaLOG) [humaLOG] See Protocol SQ ACHS 06/25/21 06/25/21 History Ipratropium-Albuterol Nebulize 3 ml INHALATION RT-Q4H PRN 06/25/21 06/25/21 History [Duoneb 0.5 mg-3 mg/3 ml Soln] [place] Packet 1 packet PO BID@0800,1700 06/25/21 06/25/21 History Allergies Allergy/AdvReac Type Severity Reaction Status Date / Time Iodinated Contrast Media Allergy Rash/Hives Verified 06/25/21 13:56 Physical Exam Vitals: Vital Signs Temp Pulse Resp BP Pulse Ox 06/25/21 13:20 78 18 119/72 98 06/25/21 12:04 99.2 F 76 18 108/51 94 L Intake and Output 06/24/21 06/25/21 06/25/21 22:59 06:59 14:59 Other: Weight 75.296 kg GENERAL: The patient is alert and oriented x3, not in any acute distress. Well developed, well nourished. HEENT: Pupils are round and equally reacting to light. EOMI. No scleral icterus. No conjunctival pallor. Normocephalic, atraumatic. No pharyngeal erythema. No thyromegaly. CARDIOVASCULAR: S1 and S2 present. No murmurs, rubs, or gallops. PULMONARY: Chest is clear to auscultation, no wheezing or crackles. ABDOMEN: Soft, nontender, nondistended, sluggish bowel sounds. No palpable organomegaly. MUSCULOSKELETAL: No joint swelling or deformity. Post surgical spine. EXTREMITIES: No cyanosis, clubbing, or pedal edema. NEUROLOGICAL: Gross neurological examination did not reveal any focal deficits. SKIN: No rashes. Results CBC & Chem 7: 06/26/21 00:00 06/25/21 12:28 Labs: Abnormal Lab Results - Last 24 Hours (Table) 06/25/21 06/25/21 06/25/21 Range/Units 12:24 12:28 12:28 RBC 2.84 L (4.30-5.90) m/uL Hgb 7.8 L (13.0-17.5) gm/dL Hct 24.2 L (39.0-53.0) % RDW 16.7 H (11.5-15.5) % Neutrophils # 8.1 H (1.3-7.7) k/uL Sodium 135 L (137-145) mmol/L Carbon Dioxide 33 H (22-30) mmol/L BUN 80 H (9-20) mg/dL Creatinine 2.04 H (0.66-1.25) mg/dL Glucose 155 H (74-99) mg/dL POC Glucose (mg/dL) 180 H (75-99) mg/dL Calcium 7.9 L (8.4-10.2) mg/dL Troponin I (0.000-0.034) ng/mL Total Protein 5.0 L (6.3-8.2) g/dL Albumin 2.3 L (3.5-5.0) g/dL Ur Leukocyte Esterase (Negative) Urine Bacteria (None) /hpf Hyaline Casts (0-2) /lpf Urine Mucus (None) /hpf 06/25/21 06/25/21 Range/Units 12:28 12:38 RBC (4.30-5.90) m/uL Hgb (13.0-17.5) gm/dL Hct (39.0-53.0) % RDW (11.5-15.5) % Neutrophils # (1.3-7.7) k/uL Sodium (137-145) mmol/L Carbon Dioxide (22-30) mmol/L BUN (9-20) mg/dL Creatinine (0.66-1.25) mg/dL Glucose (74-99) mg/dL POC Glucose (mg/dL) (75-99) mg/dL Calcium (8.4-10.2) mg/dL Troponin I 2.970 H* (0.000-0.034) ng/mL Total Protein (6.3-8.2) g/dL Albumin (3.5-5.0) g/dL Ur Leukocyte Esterase Small H (Negative) Urine Bacteria Rare H (None) /hpf Hyaline Casts 3 H (0-2) /lpf Urine Mucus Rare H (None) /hpf Assessment and Plan Assessment: 1. Elevated troponin/NSTEMI/EKG changes; possibly type II related to severe anemia - Order current troponin and monitor EKG; cardiology is consulted - Patient was admitted to the hospital a few weeks ago with elevated troponin on previous admission; we will recommend 2-D echo and cardiology 2. Acute on chronic anemia; we will plan to keep hemoglobin greater than 8.0 monitor hemoglobin and hematocrit every 6 hours and transfuse as needed; stool occult sent from ED and is pending; start patient on IV Protonix 3. Acute on chronic kidney disease; hold off on IV fluid hydration due to possible exacerbation of CHF 4. Acute exacerbation CHF; chest x-ray reveals mild pulmonary edema; BNP is elevated at 18,700 5. Hypothyroidism; levothyroxine 50 MCG daily 6. Hypertension; Coreg 3.125 mg by mouth twice a day 7. Hyperlipidemia; previously used Lipitor 80 mg daily at bedtime 8. COPD; not in exacerbation; continue home inhalers therapy in form of Pulmicort inhaler and DuoNeb nebulizer treatments 9. Diabetes mellitus; controlled with insulin; we will monitor Accu-Cheks before meals and at bedtime with insulin sliding scale DVT prophylaxis; SCDs only CODE STATUS; DO NOT RESUSCITATE
--- NOTE | 2021-06-26 14:54 | P.CRDCN ---
History of Present Illness Consult date: 06/26/21 History of present illness: HISTORY OF PRESENT ILLNESS: This is a 85-year-old male with a past medical history significant for coronary artery disease with previous CABG and PCI, diabetes, hypertension, hyperlipidemia, TIA, PAD and hypothyroidism. Patient follows in the office with Dr. Garcias. We have been asked to see the patient in consultation for abnormal troponins. Patient examined at the bedside, son and grandson at bedside. Patient has had multiple hospitalizations since April of this year and according to family, patient is at [facility] for subacute rehab but keeps returning to the hospital for medical problems. Family received a call yesterday that the patient was lethargic and disoriented and had pain in his shoulder. At this time, patient denies having any chest pain, no shortness of breath, no shoulder pain no jaw pain. In May/2021, patient was diagnosed with non-ST elevated myocardial infarction related to infection with plan for medical management, also recent hospitalization for Covid 19 * EKG reveals sinus mechanism with right bundle branch block, T-wave abnormalities * Chest xray findings consistent with mild to moderate heart failure. * Right shoulder x-ray revealed mild before meals joint arthropathy. Spur extending from the inferior acromion. Diffuse lung disease with nodularity. Laboratory data: Troponins 2.970, 4.59, 3.89 WBC 12.1, hemoglobin 7.8, platelet count 197. Sodium 135, potassium 3.8, CO2 33, BUN 80, creatinine 2.04. Blood sugar 211. Cholesterol 94, LDL 43, HDL 35 * Current home cardiac medications include: Lipitor 80 mg at bedtime, Coreg 3.125 mg twice daily, Plavix 75 mg daily, Lasix 40 mg twice daily, Imdur 30 mg daily, metolazone 2.5 mg Monday, Nitrostat as needed * Most recent echocardiogram obtained in 06/07/2021 reveals EF of 45-50% with borderline concentric left ventricular hypertrophy, LV wall motion hypokinetic, mild aortic valve sclerosis, [id number] mitral regurgitation, mild tricuspid regurgitation, moderate pulmonary hypertension. RVSP 49.56 mmHg. * Cardiac catheterization history: 2016 revealing severe left main coronary artery disease. Occluded RCA. MEZA to LAD patent. Saphenous vein graft to diagonal was patent. Saphenous vein graft to left circumflex appears to be occluded. The patient underwent PCI to the left circumflex. REVIEW OF SYSTEMS: At the time of my exam: CONSTITUTIONAL: Denies fever or chills. Reports generalized fatigue and weakness HEENT: Denies blurred vision, vision changes, or eye pain. Denies hemoptysis CARDIOVASCULAR: Denies chest pain. Denies orthopnea. Denies PND. Denies palpitations RESPIRATORY: Denies shortness of breath. GASTROINTESTINAL: Denies abdominal pain. Denies nausea or vomiting. HEMATOLOGIC: Denies bleeding disorders. GENITOURINARY: Denies any blood in urine. SKIN: Denies pruitis. Denies rash. PHYSICAL EXAM: VITAL SIGNS: Reviewed. GENERAL: Well-developed in no acute distress. HEENT: Head is normocephalic. Pupils are equal, round. Sclerae anicteric. Mucous membranes of the mouth are moist. Neck supple. No JVD or thyromegaly LUNGS: Respirations even and unlabored. Lungs diminished to auscultation bilaterally. HEART: Regular rate and rhythm. S1 and S2 heard. Systolic murmur at the base. ABDOMEN: Soft. Nondistended. Nontender. Alves catheter in place. EXTREMITIES: Normal range of motion. No clubbing or cyanosis. Peripheral pulses intact. Trace lower extremity edema with chronic discoloration and venous wounds NEUROLOGIC: Awake and alert. Oriented x 3. ASSESSMENT: Non-ST elevated myocardial infarction with noted troponin significantly abnormal from previous admission 05/2021 Coronary artery disease with previous CABG and PCI Acute kidney injury Chronic kidney disease Hypertension Hyperlipidemia Diabetes History of TIA Peripheral vascular disease Hypothyroidism Recent Covid 19 infection Anemia with no signs of bleeding PLAN: Continue patient on atorvastatin 80 mg daily, Coreg 3.125 mg twice daily, Imdur 30mg daily Plan will be for medical management Recommend workup for anemia Further recommendations pending patient course Nurse practitioner note has been reviewed by physician. Signing provider agrees with the documented findings, assessment, and plan of care. Past Medical History Past Medical History: Coronary Artery Disease (CAD), Chest Pain / Angina, CVA/TIA, Diabetes Mellitus, Hypertension, Myocardial Infarction ([place]), Renal Disease, Vascular Disorder Additional Past Medical History / Comment(s): Pt recently admitted to [facility] on 05/14/21 with generalized weakness/UTI/Klebsiella/abnormal potassium levels. Other hx: Urinary retention requiring self-catheterization, pt thinks possible from effects from stroke as well as L arm/leg weakness, IDDM type II, bilateral neuropathy of hands and feet, PVD, [place] - 04/09/16, diabetic nephropathy CKD stage III/IV, normocytic anemia, UTIs Last Myocardial Infarction Date:: 2016 History of Any Multi-Drug Resistant Organisms: None Reported Past Surgical History: Coronary Bypass/CABG, Heart Catheterization, Heart Catheterization With Stent Additional Past Surgical History / Comment(s): 5 VESSEL BYPASS 2006, stent RT leg , arthrectomy/stent March 2016, bilateral cataract removal with lens implants Past Anesthesia/Blood Transfusion Reactions: No Reported Reaction Date of Last Stent Placement:: 2016 Past Psychological History: No Psychological Hx Reported Smoking Status: Former smoker Past Alcohol Use History: None Reported Past Drug Use History: None Reported - Past Family History Brother(s) Family Medical History: Myocardial Infarction ([place]) Mother Family Medical History: Diabetes Mellitus Additional Family Medical History / Comment(s): AT AGE 93 Father Family Medical History: Myocardial Infarction ([place]) Additional Family Medical History / Comment(s): AT AGE 83 FROM [place]. Medications and Allergies Home Medications Medication Instructions Recorded Confirmed Type Levothyroxine Sodium [Synthroid] 50 mcg PO DAILY@0600 05/09/21 06/25/21 History Atorvastatin [Lipitor] 80 mg PO HS tab 06/14/21 06/25/21 Rx Ipratropium-Albuterol Nebulize 3 ml INHALATION RT-QID #0 ml 06/14/21 06/25/21 Rx [Duoneb 0.5 mg-3 mg/3 ml Soln] Acetaminophen Tab [Tylenol] 650 mg PO Q6H PRN 06/22/21 06/25/21 History Ascorbic Acid [Vitamin C] 500 mg PO BID@0800,1700 06/22/21 06/25/21 History Aspirin 81 mg PO DAILY@169906/22/21 06/25/21 History Budesonide [Pulmicort] 1 mg INHALATION RT-BID@0800,169906/22/21 06/25/21 History Cholecalciferol [Vitamin D3 (25 50 mcg PO DAILY@1700 06/22/21 06/25/21 History Mcg = 1000 Iu)] Clopidogrel [Plavix] 75 mg PO DAILY@0800 06/22/21 06/25/21 History Docusate [Colace] 100 mg PO BID@0800,1700 06/22/21 06/25/21 History Furosemide [Lasix] 40 mg PO BID@0800,1700 06/22/21 06/25/21 History Isosorbide Mononitrate ER [Imdur] 30 mg PO DAILY@0800 06/22/21 06/25/21 History Magnesium Hydroxide [Milk of 7,200 mg PO Q48H PRN 06/22/21 06/25/21 History Magnesia Concentrate] Na Phos,M-B/Na Phos,Di-Ba [Fleet 133 ml RECTAL DAILY PRN 06/22/21 06/25/21 History Adult] Nitroglycerin Sl Tabs [Nitrostat] 0.4 mg SL Q5M PRN 06/22/21 06/25/21 History Pantoprazole [Protonix] 40 mg PO DAILY@0600 06/22/21 06/25/21 History Zinc Sulfate [Orazinc] 220 mg PO DAILY@1700 06/22/21 06/25/21 History bisacodyL [Dulcolax] 10 mg RECTAL DAILY PRN 06/22/21 06/25/21 History carvediloL [Coreg] 3.125 mg PO BID@0800,1700 06/22/21 06/25/21 History metOLazone 2.5 mg PO MOWEFR@0600 06/22/21 06/25/21 History Gabapentin [Neurontin] 400 mg PO TID@0600,1400,2100 #9 cap 06/23/21 06/25/21 Rx HYDROcodone/APAP 5-325MG [[place] 1 tab PO Q6H PRN #12 tab 06/23/21 06/25/21 Rx 5-325] Insulin Detemir (Levemir) [Levemir] 10 unit SQ HS #0 06/23/21 06/25/21 Rx INSULIN LISPRO (HumaLOG) [humaLOG] See Protocol SQ ACHS 06/25/21 06/25/21 History Ipratropium-Albuterol Nebulize 3 ml INHALATION RT-Q4H PRN 06/25/21 06/25/21 History [Duoneb 0.5 mg-3 mg/3 ml Soln] [place] Packet 1 packet PO BID@0800,1700 06/25/21 06/25/21 History Allergies Allergy/AdvReac Type Severity Reaction Status Date / Time Iodinated Contrast Media Allergy Rash/Hives Verified 06/25/21 13:56 Physical Exam Vitals: Vital Signs Temp Pulse Pulse Resp BP BP Pulse Ox 06/26/21 08:16 74 06/26/21 08:04 78 06/26/21 08:00 97.5 F L 79 18 105/78 98 06/26/21 04:00 98.5 F 74 18 129/90 99 06/26/21 01:54 71 18 06/26/21 00:00 98 F 71 18 112/57 100 06/25/21 21:07 81 06/25/21 20:52 77 95 06/25/21 20:00 99.5 F 78 18 118/59 100 06/25/21 18:39 77 18 06/25/21 17:15 98.7 F 77 129/60 97 06/25/21 15:06 79 18 135/63 100 06/25/21 13:20 78 18 119/72 98 06/25/21 12:04 99.2 F 76 18 108/51 94 L Intake and Output 06/25/21 06/26/21 06/26/21 22:59 06:59 14:59 Intake Total 10 240 Output Total 900 1250 Balance -900 -1240 240 Intake: IV 10 0.9 10 Oral 240 Output: Urine 900 1250 Other: Voiding Method Indwelling Catheter Indwelling Catheter Weight 76 kg Results 06/26/21 00:00 06/25/21 12:28 Cardiac Enzymes 06/25/21 06/25/21 06/25/21 Range/Units 12:28 12:28 17:26 AST 35 (17-59) U/L Troponin I 2.970 H* 4.590 H* (0.000-0.034) ng/mL 06/25/21 Range/Units 20:39 AST (17-59) U/L Troponin I 3.890 H* (0.000-0.034) ng/mL Lipids 06/25/21 Range/Units 12:28 Triglycerides 74.30 (0.00-149.00) mg/dL Cholesterol 94.00 (0.00-200.00) mg/dL HDL Cholesterol 35.30 L (40.00-60.00) mg/dL Cholesterol/HDL Ratio 2.66 Ratio CBC 06/25/21 06/25/21 06/26/21 Range/Units 12:28 20:39 00:00 WBC 9.7 12.1 H 11.5 H (3.8-10.6) k/uL RBC 2.84 L 2.78 L 2.72 L (4.30-5.90) m/uL Hgb 7.8 L 7.8 L 7.5 L (13.0-17.5) gm/dL Hct 24.2 L 24.2 L 23.6 L (39.0-53.0) % Plt Count 221 197 197 (150-450) k/uL Comprehensive Metabolic Panel 06/25/21 Range/Units 12:28 Sodium 135 L (137-145) mmol/L Potassium 3.8 (3.5-5.1) mmol/L Chloride 98 (98-107) mmol/L Carbon Dioxide 33 H (22-30) mmol/L BUN 80 H (9-20) mg/dL Creatinine 2.04 H (0.66-1.25) mg/dL Glucose 155 H (74-99) mg/dL Calcium 7.9 L (8.4-10.2) mg/dL AST 35 (17-59) U/L ALT 20 (4-49) U/L Alkaline Phosphatase 90 (38-126) U/L Total Protein 5.0 L (6.3-8.2) g/dL Albumin 2.3 L (3.5-5.0) g/dL Current Medications Generic Name Dose Route Start Last Admin Trade Name Freq PRN Reason Stop Dose Admin Hydrocodone Bitart/Acetaminophen 1 each 06/26/21 05:51 06/26/21 05:56 Hydrocodone/Apap 5-325mg 1 Each Tab PO 1 each Q6HR PRN Administration Pain Albuterol/Ipratropium 3 ml 06/25/21 16:14 Ipratropium-Albuterol 3 Ml Neb INHALATION RT-Q4H PRN Shortness Of Breath Or Wheezing Albuterol/Ipratropium 3 ml 06/25/21 20:00 06/26/21 08:03 Ipratropium-Albuterol 3 Ml Neb INHALATION 3 ml RT-QID KODY Administration Aspirin 81 mg 06/25/21 17:00 06/25/21 21:39 Aspirin 81 Mg PO 81 mg DAILY@1700 [facility] Administration Atorvastatin Calcium 80 mg 06/25/21 21:00 06/25/21 21:41 Atorvastatin 80 Mg Tab PO 80 mg HS [facility] Administration Budesonide 1 mg 06/25/21 17:00 06/26/21 08:03 Budesonide 1 Mg/2 Ml Nebu INHALATION 1 mg RT-BID@0800,1700 [facility] Administration Carvedilol 3.125 mg 06/25/21 17:00 06/26/21 10:05 Carvedilol 3.125 Mg Tab PO 3.125 mg BID@0800,1700 [facility] Administration Cholecalciferol 50 mcg 06/25/21 17:00 06/25/21 21:40 Cholecalciferol 25 Mcg (1000 Iu) Tablet PO 50 mcg DAILY@1700 [facility] Administration Clopidogrel Bisulfate 75 mg 06/26/21 08:00 06/26/21 10:05 Clopidogrel 75 Mg Tab PO 75 mg DAILY@0800 [facility] Administration Docusate Sodium 100 mg 06/25/21 17:00 06/26/21 10:04 Docusate 100 Mg Cap PO 100 mg BID@0800,1700 [facility] Administration Insulin Detemir 10 unit 06/25/21 21:00 06/25/21 21:41 Insulin Detemir (Levemir) 100 Unit/Ml Syr SQ 10 unit [facility] Administration Isosorbide Mononitrate 30 mg 06/26/21 08:00 Isosorbide Mononitrate Er 30 Mg Tab.Er.24h PO DAILY@0800 [facility] Levothyroxine Sodium 50 mcg 06/26/21 06:00 06/26/21 05:56 Levothyroxine 50 Mcg Tab PO 50 mcg DAILY@0600 [facility] Administration Magnesium Hydroxide 7,200 mg 06/25/21 16:14 Magnesium Hydroxide 2,400 Mg/10 Ml Cup PO Q48H PRN Constipation Nitroglycerin 0.4 mg 06/25/21 13:59 Nitroglycerin Sl Tabs 0.4 Mg Tab SUBLINGUAL Q5M PRN Chest Pain Pantoprazole Sodium 40 mg 06/25/21 16:30 06/26/21 10:04 Pantoprazole 40 Mg/10 Ml Vial IVP 40 mg DAILY [facility] Administration Zinc Sulfate 220 mg 06/25/21 17:00 06/25/21 21:41 Zinc Sulfate 220 Mg Cap PO 220 mg DAILY@1700 [facility] Administration Intake and Output 06/25/21 06/26/21 06/26/21 22:59 06:59 14:59 Intake Total 10 240 Output Total 900 1250 Balance -900 -1240 240 Intake: IV 10 0.9 10 Oral 240 Output: Urine 900 1250 Other: Voiding Method Indwelling Catheter Indwelling Catheter Weight 76 kg 06/26/21 00:00 06/25/21 12:28
[2021-06-26 17:01] LABS: Glucose,Whole Blood 275 mg/dL (75-99)
[2021-06-26] MEDS: CHOLECALCIFEROL 25 MCG (1000 IU) TABLET PO SCH (17:50)
[2021-06-26] MEDS: ZINC SULFATE 220 MG CAP PO SCH (17:50)
[2021-06-26] MEDS: ATORVASTATIN 80 MG TAB PO SCH (20:05)
[2021-06-26 20:42] LABS: Glucose,Whole Blood 301 mg/dL (75-99)
[2021-06-26] MEDS: INSULIN DETEMIR (LEVEMIR) 100 UNIT/ML SYR SQ SCH (20:42)
[2021-06-27] MEDS: HYDROcodone/APAP 5-325MG 1 EACH TAB PO PRN ×3 (05:35→23:53)
[2021-06-27] MEDS: LEVOTHYROXINE 50 MCG TAB PO SCH (05:35)
[2021-06-27 06:00] LABS: Glucose,Whole Blood 118 mg/dL (75-99)
[2021-06-27] MEDS: IPRATROPIUM-ALBUTEROL 3 ML NEB INHALATION SCH ×4 (08:38→19:28)
[2021-06-27] MEDS: BUDESONIDE 1 MG/2 ML NEBU INHALATION SCH ×2 (08:39→15:46)
[2021-06-27] MEDS: DOCUSATE 100 MG CAP PO SCH ×2 (09:12→16:50)
[2021-06-27] MEDS: ISOSORBIDE MONONITRATE ER 30 MG TAB.ER.24H PO SCH (09:26)
[2021-06-27] MEDS: PANTOPRAZOLE 40 MG/10 ML VIAL IVP SCH (09:26)
[2021-06-27] MEDS: carvediloL 3.125 MG TAB PO SCH ×2 (09:26→17:04)
[2021-06-27 11:39] LABS: Glucose,Whole Blood 186 mg/dL (75-99)
[2021-06-27 11:40] LABS: Anisocytosis Slight; Basophils % (A) 0 %; Eosinophils # (A) 0.1 k/uL (0-0.7); Eosinophils % (A) 1 %; HCT 29.4 % (39.0-53.0); Hypochromasia Slight; Lymphocytes # (A) 1.2 k/uL (1.0-4.8); Lymphocytes % (A) 11 %; MCH 28.7 pg (25.0-35.0); MCHC 32.5 g/dL (31.0-37.0); MCV 88.3 fL (80.0-100.0); Mean Platelet Volume 7.4; Monocytes # (A) 0.4 k/uL (0-1.0); Monocytes % (A) 4 %; Neutrophils # (A) 9.5 k/uL (1.3-7.7); Neutrophils % (A) 84 %; Platelet Count 194 k/uL (150-450); RBC 3.34 m/uL (4.30-5.90); RDW 16.9 % (11.5-15.5); WBC 11.3 k/uL (3.8-10.6)
[2021-06-27 11:41] LABS: HGB 9.6 gm/dL (13.0-17.5)
--- NOTE | 2021-06-27 12:39 | P.PN ---
Subjective Progress Note Date: 06/27/21 HISTORY OF PRESENT ILLNESS: This is a 85-year-old male with a past medical history significant for coronary artery disease with previous CABG and PCI, diabetes, hypertension, hyperli pidemia, TIA, PAD and hypothyroidism. Patient follows in the office with Dr. Garcias. We have been asked to see the patient in consultation for abnormal troponins. Patient examined at the bedside, son and grandson at bedside. Patient has had multiple hospitalizations since April of this year and ac cording to family, patient is at [facility] for subacute rehab but keeps returning to the hospital for medical problems. Family received a call yesterday that the patient was lethargic and disoriented and had pain in his shoulder. At this time, patient denies having any chest pain, no shortness of breath, no shoulder pain no jaw pain. In May/2021, patient was diagnosed with non-ST elevated myocardial infarction related to infection with plan for medical management, also recent hospitalization for Covid 19 * EKG reveals sinus mechanism with right bundle branch block, T-wave abnormalities * Chest xray findings consistent with mild to moderate heart failure. * Right shoulder x-ray revealed mild before meals joint arthropathy. Spur extending from the inferior acromion. Diffuse lung disease with nodularity. Laboratory data: Troponins 2.970, 4.59, 3.89 WBC 12.1, hemoglobin 7.8, platelet count 197. Sodium 135, potassium 3.8, CO2 33, BUN 80, creatinine 2.04. Blood sugar 211. Cholesterol 94, LDL 43, HDL 35 * Current home cardiac medications include: Lipitor 80 mg at bedtime, Coreg 3.125 mg twice daily, Plavix 75 mg daily, Lasix 40 mg twice daily, Imdur 30 mg daily, metolazone 2.5 mg Monday, Nitrostat as needed * Most recent echocardiogram obtained in 06/07/2021 reveals EF of 45-50% with borderline concentric left ventricular hypertrophy, LV wall motion hypokinetic, mild aortic valve sclerosis, [id number] mitral regurgitation, mild tricuspid regurgitation, moderate pulmonary hypertension. RVSP 49.56 mmHg. * Cardiac catheterization history: 2016 revealing severe left main coronary artery disease. Occluded RCA. MEZA to LAD patent. Saphenous vein graft to diagonal was patent. Saphenous vein graft to left circumflex appears to be occluded. The patient underwent PCI to the left circumflex. 06/27/2021 Patient denies having any shoulder pain, no chest pain. He denies having any shortness of breath. Heart rate has been in the 60s to 80s and blood pressure 113/57. 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 Repeat blood work reveals hemoglobin 9.6. PHYSICAL EXAM: VITAL SIGNS: Reviewed. GENERAL: Well-developed in no acute distress. HEENT: Head is normocephalic. Pupils are equal, round. Sclerae anicteric. Mucous membranes of the mouth are moist. Neck supple. No JVD or thyromegaly LUNGS: Respirations even and unlabored. Lungs diminished to auscultation bilaterally. HEART: Regular rate and rhythm. S1 and S2 heard. Systolic murmur at the base. ABDOMEN: Soft. Nondistended. Nontender. Alves catheter in place. EXTREMITIES: Normal range of motion. No clubbing or cyanosis. Peripheral pulses intact. Trace lower extremity edema with chronic discoloration and venous wounds NEUROLOGIC: Awake and alert. Oriented x 3. ASSESSMENT: Non-ST elevated myocardial infarction with noted troponin significantly abnormal from previous admission 05/2021 Coronary artery disease with previous CABG and PCI Acute kidney injury Chronic kidney disease Hypertension Hyperlipidemia Diabetes History of TIA Peripheral vascular disease Hypothyroidism Recent Covid 19 infection Anemia with no signs of bleeding PLAN: Continue patient on atorvastatin 80 mg daily, Coreg 3.125 mg twice daily, Imdur 30mg daily Plan will be for medical management Recommend workup for anemia Patient is cleared from cardiology for discharge back to [facility]. Follow-up outpatient with Dr. Garcias Nurse practitioner note has been reviewed by physician. Signing provider agrees with the documented findings, assessment, and plan of care. Objective - Vital Signs Vital signs: Vital Signs Temp 97.9 F 06/27/21 08:00 Pulse 80 06/27/21 12:21 Resp 18 06/27/21 08:00 BP 113/57 06/27/21 08:00 Pulse Ox 97 06/27/21 08:42 Intake & Output 06/26/21 06/27/21 06/27/21 18:59 06:59 18:59 Intake Total 240 620 Output Total 600 700 Balance -360 -80 Weight 76 kg 79 kg Intake: Oral 240 Blood Product 0 620 Rc As-1 Unit 0 310 [id number] Output: Urine 600 700 Other: Voiding Method Indwelling Catheter Indwelling Catheter Indwelling Catheter - Labs CBC & Chem 7: 06/27/21 10:25 06/25/21 12:28 Labs: Abnormal Lab Results - Last 24 Hours (Table) 06/25/21 06/26/21 06/26/21 Range/Units 13:40 15:29 17:00 WBC (3.8-10.6) k/uL RBC (4.30-5.90) m/uL Hgb (13.0-17.5) gm/dL Hct (39.0-53.0) % RDW (11.5-15.5) % Neutrophils # (1.3-7.7) k/uL POC Glucose (mg/dL) 275 H (75-99) mg/dL Troponin I 1.820 H* (0.000-0.034) ng/mL Crossmatch See Detail 06/26/21 06/27/21 06/27/21 Range/Units 20:32 05:44 10:25 WBC 11.3 H (3.8-10.6) k/uL RBC 3.34 L (4.30-5.90) m/uL Hgb 9.6 L D (13.0-17.5) gm/dL Hct 29.4 L (39.0-53.0) % RDW 16.9 H (11.5-15.5) % Neutrophils # 9.5 H (1.3-7.7) k/uL POC Glucose (mg/dL) 301 H 118 H (75-99) mg/dL Troponin I (0.000-0.034) ng/mL Crossmatch 06/27/21 Range/Units 11:36 WBC (3.8-10.6) k/uL RBC (4.30-5.90) m/uL Hgb (13.0-17.5) gm/dL Hct (39.0-53.0) % RDW (11.5-15.5) % Neutrophils # (1.3-7.7) k/uL POC Glucose (mg/dL) 186 H (75-99) mg/dL Troponin I (0.000-0.034) ng/mL Crossmatch
[2021-06-27 13:34] LABS: Reticulocyte % 2.9 % (0.5-2.0)
[2021-06-27 14:12] LABS: African American GFR (CKD) 44 (>60 ml/min/1.73 sqM); Anion Gap 4 mmol/L; Blood Urea Nitrogen 72 mg/dL (9-20); Calcium 8.2 mg/dL (8.4-10.2); Carbon Dioxide 35 mmol/L (22-30); Chloride 100 mmol/L (98-107); Non-African American GFR(CKD) 38 (>60 ml/min/1.73 sqM); Potassium 3.3 mmol/L (3.5-5.1); Sodium 139 mmol/L (137-145)
[2021-06-27 14:16] LABS: Glucose 35 mg/dL (74-99)
[2021-06-27] MEDS ORDERED: Potassium Replacement Protocol 1 EACH MISC MISCELLANE PRN (14:27)
[2021-06-27] MEDS: SODIUM CHLORIDE 0.9% 1,000 ML IV SCH (14:28)
[2021-06-27 15:12] LABS: T4, Free (Free Thyroxine) 1.89 ng/dL (0.78-2.19)
--- NOTE | 2021-06-27 15:23 | P.PN ---
Subjective Progress Note Date: 06/26/21 85-year-old male who comes in because he is having twitching of his body about every 15-30 seconds. Patient also complains of right shoulder pain which she has been complaining about for a while. Patient is alert and oriented 4. Patient states he didn't request come to the hospital. Patient denies chest pain difficulty breathing shortness of breath. Patient denies any fever patient denies cough patient denies nausea vomiting diarrhea. Patient denies any other symptoms at this time. I spoke with the primary medical care doctor he states he was in the hospital recently for an NSTEMI and urinary tract infection. He also was recently admitted hypoglycemia. EKG shows sinus rhythm at 75 bpm WI interval is 190 QRS is under 4 QT interval 4:30 QTC is 459. Patient's right bundle branch block. Patient's EKG is very similar to previous but different from EKG approximately 2 weeks ago. EKG is ch anged in the sense that it has ST segment depression and T-wave inversions in precordial leads V4 V5 and V6 which were not seen 2 weeks ago. But was seen 2 days ago Chest x-ray shows signs of pulmonary edema. Patient was given Lasix. Patient was anemic and was not started on heparin at this time. Will consult cardiology. Objective - Vital Signs Vital signs: Vital Signs Temp 97.5 F L 06/26/21 08:00 Pulse 74 06/26/21 08:16 Resp 18 06/26/21 08:00 BP 105/78 06/26/21 08:00 Pulse Ox 98 06/26/21 08:00 Intake & Output 06/25/21 06/26/21 06/26/21 18:59 06:59 18:59 Intake Total 10 240 Output Total 900 1250 Balance -900 -1240 240 Weight 75.296 kg 76 kg 76 kg Intake: IV 10 0.9 10 Oral 240 Output: Urine 900 1250 Other: Voiding Method Indwelling Catheter Indwelling Catheter - Exam GENERAL: The patient is alert and oriented x3, not in any acute distress. Well developed, well nourished. HEENT: Pupils are round and equally reacting to light. EOMI. No scleral icterus. No conjunctival pallor. Normocephalic, atraumatic. No pharyngeal erythema. No thyromegaly. CARDIOVASCULAR: S1 and S2 present. No murmurs, rubs, or gallops. PULMONARY: Chest is clear to auscultation, no wheezing or crackles. ABDOMEN: Soft, nontender, nondistended, sluggish bowel sounds. No palpable organomegaly. MUSCULOSKELETAL: No joint swelling or deformity. Post surgical spine. EXTREMITIES: No cyanosis, clubbing, or pedal edema. NEUROLOGICAL: Gross neurological examination did not reveal any focal deficits. SKIN: No rashes. - Labs CBC & Chem 7: 06/27/21 10:25 06/27/21 10:25 Labs: Abnormal Lab Results - Last 24 Hours (Table) 06/25/21 06/25/21 06/25/21 Range/Units 12:28 13:40 15:09 WBC (3.8-10.6) k/uL RBC (4.30-5.90) m/uL Hgb (13.0-17.5) gm/dL Hct (39.0-53.0) % RDW (11.5-15.5) % POC Glucose (mg/dL) 187 H (75-99) mg/dL Troponin I (0.000-0.034) ng/mL HDL Cholesterol 35.30 L (40.00-60.00) mg/dL Crossmatch See Detail 06/25/21 06/25/21 06/25/21 Range/Units 17:26 20:39 20:39 WBC 12.1 H (3.8-10.6) k/uL RBC 2.78 L (4.30-5.90) m/uL Hgb 7.8 L (13.0-17.5) gm/dL Hct 24.2 L (39.0-53.0) % RDW 16.7 H (11.5-15.5) % POC Glucose (mg/dL) (75-99) mg/dL Troponin I 4.590 H* 3.890 H* (0.000-0.034) ng/mL HDL Cholesterol (40.00-60.00) mg/dL Crossmatch 06/25/21 06/26/21 06/26/21 Range/Units 20:46 00:00 05:31 WBC 11.5 H (3.8-10.6) k/uL RBC 2.72 L (4.30-5.90) m/uL Hgb 7.5 L (13.0-17.5) gm/dL Hct 23.6 L (39.0-53.0) % RDW 16.7 H (11.5-15.5) % POC Glucose (mg/dL) 211 H 138 H (75-99) mg/dL Troponin I (0.000-0.034) ng/mL HDL Cholesterol (40.00-60.00) mg/dL Crossmatch 06/26/21 Range/Units 11:50 WBC (3.8-10.6) k/uL RBC (4.30-5.90) m/uL Hgb (13.0-17.5) gm/dL Hct (39.0-53.0) % RDW (11.5-15.5) % POC Glucose (mg/dL) 191 H (75-99) mg/dL Troponin I (0.000-0.034) ng/mL HDL Cholesterol (40.00-60.00) mg/dL Crossmatch Assessment and Plan Assessment: 1. Elevated troponin/NSTEMI/EKG changes; possibly type II related to severe anemia - Order current troponin and monitor EKG; cardiology is consulted - Patient was admitted to the hospital a few weeks ago with elevated troponin on previous admission; we will recommend 2-D echo and cardiology 2. Acute on chronic anemia; we will plan to keep hemoglobin greater than 8.0 monitor hemoglobin and hematocrit every 6 hours and transfuse as needed; stool occult sent from ED and is pending; start patient on IV Protonix 3. Acute on chronic kidney disease; hold off on IV fluid hydration due to possible exacerbation of CHF 4. Acute exacerbation CHF; chest x-ray reveals mild pulmonary edema; BNP is elevated at 18,700 5. Hypothyroidism; levothyroxine 50 MCG daily 6. Hypertension; Coreg 3.125 mg by mouth twice a day 7. Hyperlipidemia; previously used Lipitor 80 mg daily at bedtime 8. COPD; not in exacerbation; continue home inhalers therapy in form of Pulmicort inhaler and DuoNeb nebulizer treatments 9. Diabetes mellitus; controlled with insulin; we will monitor Accu-Cheks before meals and at bedtime with insulin sliding scale DVT prophylaxis; SCDs only CODE STATUS; DO NOT RESUSCITATE
--- NOTE | 2021-06-27 15:40 | P.PN ---
Subjective Progress Note Date: 06/27/21 Principal diagnosis: NSTEMI Acute on chronic anemia Acute on chronic kidney disease 85-year-old male who comes in because he is having twitching of his body about every 15-30 seconds. Patient also complains of right shoulder pain which she has been complaining about for a while. Patient is alert and oriented 4. Patient states he didn't request come to the hospital. Patient denies chest pain difficulty breathing shortness of breath. Patient denies any fever patient denies cough patient denies nausea vomiting diarrhea. Patient denies any other symptoms at this time. I spoke with the primary medical care doctor he states he was in the hospital recently for an NSTEMI and urinary tract infection. He also was recently admitted hypoglycemia. EKG shows sinus rhythm at 75 bpm MA interval is 190 QRS is under 4 QT interval 4:30 QTC is 459. Patient's right bundle branch block. Patient's EKG is very similar to previous but different from EKG approximately 2 weeks ago. EKG is changed in the sense that it has ST segment depression and T-wave inversions in precordial leads V4 V5 and V6 which were not seen 2 weeks ago. But was seen 2 days ago Chest x-ray shows signs of pulmonary edema. Patient was given Lasix. Patient was anemic and was not started on heparin at this time. Will consult cardiology. 06/27/2021 Patient is seen and evaluated resting comfortably in bed; no complaints of chest pain Vital signs are reviewed and remained stable temperature of 98.4, pulse 65, respirations 17 and blood pressure 119/62, O2 saturation 98% on 4 L Laboratory review shows stability was 11.3, hemoglobin 9.6, sodium 139, potassium 3.3, BUN/creatinine of 72/1.63 Hemoglobin remained stable post transfusion with 1 unit of packed RBCs; stool occult blood is negative; we will order iron studies, vitamin B-12 and folic a melissa levels, TSH and reticulocyte Consult hematology for further evaluation of anemia Cardiology on board and recommending to continue with atorvastatin 80 mg daily, Coreg 3.125 g twice a day and Imdur 30 mg daily; continue with medical management Objective - Vital Signs Vital signs: Vital Signs Temp 97.9 F 06/27/21 08:00 Pulse 80 06/27/21 12:21 Resp 18 06/27/21 08:00 BP 113/57 06/27/21 08:00 Pulse Ox 97 06/27/21 08:42 Intake & Output 06/26/21 06/27/21 06/27/21 18:59 06:59 18:59 Intake Total 240 620 Output Total 600 700 Balance -360 -80 Weight 76 kg 79 kg Intake: Oral 240 Blood Product 0 620 Rc As-1 Unit 0 310 [id number] Output: Urine 600 700 Other: Voiding Method Indwelling Catheter Indwelling Catheter Indwelling Catheter - Exam GENERAL: The patient is alert and oriented x3, not in any acute distress. Well developed, well nourished. HEENT: Pupils are round and equally reacting to light. EOMI. No scleral icterus. No conjunctival pallor. Normocephalic, atraumatic. No pharyngeal erythema. No thyromegaly. CARDIOVASCULAR: S1 and S2 present. No murmurs, rubs, or gallops. PULMONARY: Chest is clear to auscultation, no wheezing or crackles. ABDOMEN: Soft, nontender, nondistended, sluggish bowel sounds. No palpable organomegaly. MUSCULOSKELETAL: No joint swelling or deformity. Post surgical spine. EXTREMITIES: No cyanosis, clubbing, or pedal edema. NEUROLOGICAL: Gross neurological examination did not reveal any focal deficits. SKIN: No rashes. - Labs CBC & Chem 7: 06/27/21 10:25 06/27/21 10:25 Labs: Abnormal Lab Results - Last 24 Hours (Table) 06/25/21 06/26/21 06/26/21 Range/Units 13:40 15:29 17:00 WBC (3.8-10.6) k/uL RBC (4.30-5.90) m/uL Hgb (13.0-17.5) gm/dL Hct (39.0-53.0) % RDW (11.5-15.5) % Neutrophils # (1.3-7.7) k/uL POC Glucose (mg/dL) 275 H (75-99) mg/dL Troponin I 1.820 H* (0.000-0.034) ng/mL Crossmatch See Detail 06/26/21 06/27/21 06/27/21 Range/Units 20:32 05:44 10:25 WBC 11.3 H (3.8-10.6) k/uL RBC 3.34 L (4.30-5.90) m/uL Hgb 9.6 L D (13.0-17.5) gm/dL Hct 29.4 L (39.0-53.0) % RDW 16.9 H (11.5-15.5) % Neutrophils # 9.5 H (1.3-7.7) k/uL POC Glucose (mg/dL) 301 H 118 H (75-99) mg/dL Troponin I (0.000-0.034) ng/mL Crossmatch 06/27/21 Range/Units 11:36 WBC (3.8-10.6) k/uL RBC (4.30-5.90) m/uL Hgb (13.0-17.5) gm/dL Hct (39.0-53.0) % RDW (11.5-15.5) % Neutrophils # (1.3-7.7) k/uL POC Glucose (mg/dL) 186 H (75-99) mg/dL Troponin I (0.000-0.034) ng/mL Crossmatch Assessment and Plan Assessment: 1. Elevated troponin/NSTEMI/EKG changes; possibly type II related to severe anemia - Order current troponin and monitor EKG; cardiology is consulted - Patient was admitted to the hospital a few weeks ago with elevated troponin on previous admission; we will recommend 2-D echo and cardiology 2. Acute on chronic anemia; we will plan to keep hemoglobin greater than 8.0 monitor hemoglobin and hematocrit every 6 hours and transfuse as needed; stool occult sent from ED and is pending; start patient on IV Protonix 3. Acute on chronic kidney disease; hold off on IV fluid hydration due to possible exacerbation of CHF 4. Acute exacerbation CHF; chest x-ray reveals mild pulmonary edema; BNP is elevated at 18,700 5. Hypothyroidism; levothyroxine 50 MCG daily 6. Hypertension; Coreg 3.125 mg by mouth twice a day 7. Hyperlipidemia; previously used Lipitor 80 mg daily at bedtime 8. COPD; not in exacerbation; continue home inhalers therapy in form of Pulmicort inhaler and DuoNeb nebulizer treatments 9. Diabetes mellitus; controlled with insulin; we will monitor Accu-Cheks before meals and at bedtime with insulin sliding scale DVT prophylaxis; SCDs only CODE STATUS; DO NOT RESUSCITATE
[2021-06-27 16:31] LABS: Glucose,Whole Blood 179 mg/dL (75-99)
[2021-06-27 16:49] LABS: % Iron Saturation 10.11 (15.00-50.00); Iron 15 ug/dL (65-175); Total Iron Binding Capacity 148 ug/dL (228-460)
[2021-06-27] MEDS: POTASSIUM CHLORIDE ER 20 MEQ TAB.ER PO SCH ×2 (17:04→18:09)
[2021-06-27] MEDS: ZINC SULFATE 220 MG CAP PO SCH (17:04)
[2021-06-27] MEDS: CHOLECALCIFEROL 25 MCG (1000 IU) TABLET PO SCH (17:04)
[2021-06-27 20:17] LABS: Glucose,Whole Blood 209 mg/dL (75-99)
[2021-06-27] MEDS: ATORVASTATIN 80 MG TAB PO SCH (21:05)
[2021-06-27] MEDS: INSULIN DETEMIR (LEVEMIR) 100 UNIT/ML SYR SQ SCH (21:05)
[2021-06-28] MEDS: SODIUM CHLORIDE 0.9% 1,000 ML IV SCH (03:26)
[2021-06-28 06:06] LABS: Glucose,Whole Blood 100 mg/dL (75-99)
[2021-06-28] MEDS: LEVOTHYROXINE 50 MCG TAB PO SCH (06:16)
--- NOTE | 2021-06-28 08:34 | P.CONS ---
History of Present Illness - Reason for Consult Consult date: 06/28/21 wound care - History of Present Illness This is an 85-year-old patient with past medical history significant for the artery disease, CVA, hypertension, diabetes, chronic kidney disease stage III/4, peripheral vascular disease. Pictures reviewed for coccyx ulcer due to patient refusal to see ulcers. he has 3 ulcerations. one to the sacrum that is a stage II pressure ulcer measuring approximately 1 x 1 x 0.1 cm with granulation noted to the wound bed minimal slough wound edges are attached to the wound base there is no tunneling or undermining. Excoriation noted to the site. Right pedal anterior foot ulceration with fatty layer exposure measuring 1.3 x 2.0 x 0.1 cm with significant amount of slough noted within the wound bed and minimal granulation. Wound edges are attached to the wound base. No tunneling or u ndermining noted. Patient has unstageable pressure ulcer to the left great toe. Has eschar In place. No drainage to the site noted. Review Of Systems: Constitutional: No fever, no chills, no night sweats. No weight change. No weakness, fatigue or lethargy. No daytime sleepiness. Integumentary:reports wounds, no lesions. No rash or pruritus. No unusual bruising. No change in hair or nails. Physical exam: General Appearance: Alert, cooperative, no distress, appears stated age. Skin: See HPI all other Skin color, texture, tugor normal, no rashes or lesions. Neurologic: Alert oriented x3 Assessment: 1. Stage II pressure ulcer sacrum 2. Right anterior foot ulceration with fatty layer exposure nonpressure components. 3. Pressure ulceration left great toe unstageable new 4. Diabetic foot ulcer Plan: 1. Sacrum: Apply honey gel, dry gauze, and border foam. Right anterior foot: Apply honey gel, dry gauze, foam and rolled gauze, secure with tape. Left great toe: No dressings at this time. Patient would benefit from continued wound wound care and outpatient setting. Thank you for the consultation any questions to contact the wound care center DNP note has been reviewed and discussed with Dr. Neff and the impression and plan of care has been directed as dictated. Past Medical History Past Medical History: Coronary Artery Disease (CAD), Chest Pain / Angina, CVA/TIA, Diabetes Mellitus, Hypertension, Myocardial Infarction ([place]), Renal Disease, Vascular Disorder Additional Past Medical History / Comment(s): Pt recently admitted to [facility] on 05/14/21 with generalized weakness/UTI/Klebsiella/abnormal potassium levels. Other hx: Urinary retention requiring self-catheterization, pt thinks possible from effects from stroke as well as L arm/leg weakness, IDDM type II, bilateral neuropathy of hands and feet, PVD, [place] - 04/09/16, diabetic nephropathy CKD stage III/IV, normocytic anemia, UTIs Last Myocardial Infarction Date:: 2016 History of Any Multi-Drug Resistant Organisms: None Reported Past Surgical History: Coronary Bypass/CABG, Heart Catheterization, Heart Catheterization With Stent Additional Past Surgical History / Comment(s): 5 VESSEL BYPASS 2006, stent RT leg , arthrectomy/stent March 2016, bilateral cataract removal with lens implants Past Anesthesia/Blood Transfusion Reactions: No Reported Reaction Date of Last Stent Placement:: 2016 Past Psychological History: No Psychological Hx Reported Smoking Status: Former smoker Past Alcohol Use History: None Reported Past Drug Use History: None Reported - Past Family History Brother(s) Family Medical History: Myocardial Infarction ([place]) Mother Family Medical History: Diabetes Mellitus Additional Family Medical History / Comment(s): AT AGE 93 Father Family Medical History: Myocardial Infarction ([place]) Additional Family Medical History / Comment(s): AT AGE 83 FROM [place]. Medications and Allergies Home Medications Medication Instructions Recorded Confirmed Type Levothyroxine Sodium [Synthroid] 50 mcg PO DAILY@0600 05/09/21 06/25/21 History Atorvastatin [Lipitor] 80 mg PO HS tab 06/14/21 06/25/21 Rx Ipratropium-Albuterol Nebulize 3 ml INHALATION RT-QID #0 ml 06/14/21 06/25/21 Rx [Duoneb 0.5 mg-3 mg/3 ml Soln] Acetaminophen Tab [Tylenol] 650 mg PO Q6H PRN 06/22/21 06/25/21 History Ascorbic Acid [Vitamin C] 500 mg PO BID@0800,1700 06/22/21 06/25/21 History Aspirin 81 mg PO DAILY@1700 06/22/21 06/25/21 History Budesonide [Pulmicort] 1 mg INHALATION RT-BID@0800,1700 06/22/21 06/25/21 History Cholecalciferol [Vitamin D3 (25 50 mcg PO DAILY@1700 06/22/21 06/25/21 History Mcg = 1000 Iu)] Clopidogrel [Plavix] 75 mg PO DAILY@0800 06/22/21 06/25/21 History Docusate [Colace] 100 mg PO BID@0800,1700 06/22/21 06/25/21 History Furosemide [Lasix] 40 mg PO BID@0800,1700 06/22/21 06/25/21 History Isosorbide Mononitrate ER [Imdur] 30 mg PO DAILY@0800 06/22/21 06/25/21 History Magnesium Hydroxide [Milk of 7,200 mg PO Q48H PRN 06/22/21 06/25/21 History Magnesia Concentrate] Na Phos,M-B/Na Phos,Di-Ba [Fleet 133 ml RECTAL DAILY PRN 06/22/21 06/25/21 History Adult] Nitroglycerin Sl Tabs [Nitrostat] 0.4 mg SL Q5M PRN 06/22/21 06/25/21 History Pantoprazole [Protonix] 40 mg PO DAILY@0600 06/22/21 06/25/21 History Zinc Sulfate [Orazinc] 220 mg PO DAILY@1700 06/22/21 06/25/21 History bisacodyL [Dulcolax] 10 mg RECTAL DAILY PRN 06/22/21 06/25/21 History carvediloL [Coreg] 3.125 mg PO BID@0800,1700 06/22/21 06/25/21 History metOLazone 2.5 mg PO MOWEFR@0600 06/22/21 06/25/21 History Gabapentin [Neurontin] 400 mg PO TID@0600,1400,2100 #9 cap 06/23/21 06/25/21 Rx HYDROcodone/APAP 5-325MG [[place] 1 tab PO Q6H PRN #12 tab 06/23/21 06/25/21 Rx 5-325] Insulin Detemir (Levemir) [Levemir] 10 unit SQ HS #0 06/23/21 06/25/21 Rx INSULIN LISPRO (HumaLOG) [humaLOG] See Protocol SQ ACHS 06/25/21 06/25/21 History Ipratropium-Albuterol Nebulize 3 ml INHALATION RT-Q4H PRN 06/25/21 06/25/21 H istory [Duoneb 0.5 mg-3 mg/3 ml Soln] [place] Packet 1 packet PO BID@0800,1700 06/25/21 06/25/21 History Allergies Allergy/AdvReac Type Severity Reaction Status Date / Time Iodinated Contrast Media Allergy Rash/Hives Verified 06/25/21 13:56 Physical Exam Vitals: Vital Signs Temp Pulse Pulse Resp BP Pulse Ox 06/28/21 08:23 99.2 F 81 24 145/66 91 L 06/28/21 04:00 98.2 F 68 18 121/63 93 L 06/28/21 00:00 98.6 F 73 18 126/67 91 L 06/27/21 20:00 97.8 F 79 18 146/81 97 06/27/21 19:39 84 06/27/21 19:28 83 06/27/21 16:00 97.8 F 82 18 151/66 94 L 06/27/21 15:53 78 06/27/21 15:41 74 94 L 06/27/21 14:00 65 17 06/27/21 12:21 80 06/27/21 12:13 78 06/27/21 12:00 98.4 F 65 17 109/62 98 06/27/21 08:48 70 06/27/21 08:42 97 06/27/21 08:39 67 Intake and Output 06/27/21 06/28/21 06/28/21 22:59 06:59 14:59 Output Total 700 350 Balance -700 -350 Output: Urine 700 350 Other: Voiding Method Indwelling Catheter # Bowel Movements 1 Results CBC & Chem 7: 06/27/21 10:25 06/27/21 10:25 Labs: Abnormal Lab Results - Last 24 Hours (Table) 06/27/21 06/27/21 06/27/21 Range/Units 10:25 10:25 10:25 WBC 11.3 H (3.8-10.6) k/uL RBC 3.34 L (4.30-5.90) m/uL Hgb 9.6 L D (13.0-17.5) gm/dL Hct 29.4 L (39.0-53.0) % RDW 16.9 H (11.5-15.5) % Neutrophils # 9.5 H (1.3-7.7) k/uL Retic Count 2.9 H (0.5-2.0) % Potassium 3.3 L (3.5-5.1) mmol/L Carbon Dioxide 35 H (22-30) mmol/L BUN 72 H (9-20) mg/dL Creatinine 1.63 H (0.66-1.25) mg/dL Glucose 35 L* (74-99) mg/dL POC Glucose (mg/dL) (75-99) mg/dL Calcium 8.2 L (8.4-10.2) mg/dL Iron 15 L (65-175) ug/dL TIBC 148 L (228-460) ug/dL % Saturation 10.11 L (15.00-50.00) Transferrin 106.0 L (204.0-354.0) mg/dL TSH 8.610 H (0.465-4.680) mIU/L 06/27/21 06/27/21 06/27/21 Range/Units 11:36 16:26 20:15 WBC (3.8-10.6) k/uL RBC (4.30-5.90) m/uL Hgb (13.0-17.5) gm/dL Hct (39.0-53.0) % RDW (11.5-15.5) % Neutrophils # (1.3-7.7) k/uL Retic Count (0.5-2.0) % Potassium (3.5-5.1) mmol/L Carbon Dioxide (22-30) mmol/L BUN (9-20) mg/dL Creatinine (0.66-1.25) mg/dL Glucose (74-99) mg/dL POC Glucose (mg/dL) 186 H 179 H 209 H (75-99) mg/dL Calcium (8.4-10.2) mg/dL Iron (65-175) ug/dL TIBC (228-460) ug/dL % Saturation (15.00-50.00) Transferrin (204.0-354.0) mg/dL TSH (0.465-4.680) mIU/L 06/28/21 Range/Units 06:03 WBC (3.8-10.6) k/uL RBC (4.30-5.90) m/uL Hgb (13.0-17.5) gm/dL Hct (39.0-53.0) % RDW (11.5-15.5) % Neutrophils # (1.3-7.7) k/uL Retic Count (0.5-2.0) % Potassium (3.5-5.1) mmol/L Carbon Dioxide (22-30) mmol/L BUN (9-20) mg/dL Creatinine (0.66-1.25) mg/dL Glucose (74-99) mg/dL POC Glucose (mg/dL) 100 H (75-99) mg/dL Calcium (8.4-10.2) mg/dL Iron (65-175) ug/dL TIBC (228-460) ug/dL % Saturation (15.00-50.00) Transferrin (204.0-354.0) mg/dL TSH (0.465-4.680) mIU/L Assessment and Plan (1) Non-pressure chronic ulcer of other part of right foot with fat layer exposed Current Visit: Yes Status: Acute Code(s): L97.512 - NON-PRS CHRONIC ULCER OTH PRT RIGHT FOOT W FAT LAYER EXPOSED SNOMED Code(s): 364906564 (2) Pressure ulcer of left foot, unstageable Current Visit: No Status: Acute Code(s): L89.890 - PRESSURE ULCER OF OTHER SITE, UNSTAGEABLE SNOMED Code(s): 942429095 (3) Pressure ulcer of sacral region, stage 2 Current Visit: No Status: Acute Code(s): L89.152 - PRESSURE ULCER OF SACRAL REGION, STAGE 2 SNOMED Code(s): 00312559548968653 (4) Type 2 diabetes mellitus with foot ulcer Current Visit: No Status: Acute Code(s): E11.621 - TYPE 2 DIABETES MELLITUS WITH FOOT ULCER; L97.509 - NON-PRESSURE CHRONIC ULCER OTH PRT UNSP FOOT W UNSP SEVERITY SNOMED Code(s): 632836565
[2021-06-28] MEDS: IPRATROPIUM-ALBUTEROL 3 ML NEB INHALATION SCH ×4 (08:44→19:51)
[2021-06-28] MEDS: BUDESONIDE 1 MG/2 ML NEBU INHALATION SCH ×2 (08:44→15:13)
[2021-06-28] MEDS: carvediloL 3.125 MG TAB PO SCH ×2 (09:04→17:23)
[2021-06-28] MEDS: PANTOPRAZOLE 40 MG/10 ML VIAL IVP SCH (09:04)
[2021-06-28] MEDS: DOCUSATE 100 MG CAP PO SCH ×2 (09:04→17:21)
[2021-06-28] MEDS: ISOSORBIDE MONONITRATE ER 30 MG TAB.ER.24H PO SCH (09:04)
[2021-06-28 09:08] LABS: Anisocytosis Slight; Basophils % (A) 0 %; Eosinophils % (A) 1 %; HCT 30.9 % (39.0-53.0); Hypochromasia Slight; Lymphocytes # (A) 0.6 k/uL (1.0-4.8); Lymphocytes % (A) 7 %; MCH 28.7 pg (25.0-35.0); MCHC 32.4 g/dL (31.0-37.0); MCV 88.5 fL (80.0-100.0); Mean Platelet Volume 7.4; Monocytes # (A) 0.3 k/uL (0-1.0); Monocytes % (A) 3 %; Neutrophils # (A) 7.3 k/uL (1.3-7.7); Neutrophils % (A) 88 %; Platelet Count 171 k/uL (150-450); RBC 3.49 m/uL (4.30-5.90); RDW 16.9 % (11.5-15.5); WBC 8.2 k/uL (3.8-10.6)
[2021-06-28 09:20] LABS: Potassium 3.6 mmol/L (3.5-5.1)
--- NOTE | 2021-06-28 09:58 | P.NPCON ---
History of Present Illness - Reason for Consult acute renal failure, chronic renal failure - History of Present Illness Reason for consultation: Acute kidney injury and chronic kidney disease History of present illness: Patient is a 85-year-old male seen in consultation for acute kidney injury on chronic kidney disease. Patient has chronic kidney disease stage IIIB with baseline creatinine in the range of 1.5-2 secondary to nephrosclerosis. Creatinine on admission was 2.04 and is down to 1.47 today. Patient presented to the hospital due to generalized weakness and twitching. He was also having g eneralized body pain which seems was improved. Patient's currently resting in bed and is not a very reliable historian. He seems somewhat agitated. He was diagnosed with an STEMI by cardiology due to elevated troponins. He does a history of coronary disease with history of CABG and PCI. Patient has history of diabetes. He has been receiving IV fluids. Chest x-ray shows of a fluid overload. Patient's proBNP was elevated at 18,700. Patient has history of systolic CHF with ejection fraction of 45-50% with mild to moderate mitral regurgitation and moderate pulmonary hypertension. He currently has a Alves catheter which seems to be chronic. Blood pressure stable. He is on 4 L nasal cannula. Denies chest pain or shortness of breath. He was taking Lasix as well as metolazone at home. I don't see any nonsteroidals and his home medication list. Vital signs are stable. General: No acute distress. Awake. HEENT: Head exam is unremarkable. LUNGS: Breath sounds decreased. HEART: Rate and Rhythm are regular. ABDOMEN: Soft, no distention. EXTREMITITES: No edema. Past Medical History Past Medical History: Coronary Artery Disease (CAD), Chest Pain / Angina, CVA/TIA, Diabetes Mellitus, Hypertension, [place]ocardial Infarction ([place]), Renal Disease, Vascular Disorder Additional Past Medical History / Comment(s): Pt recently admitted to [facility] on 05/14/21 with generalized weakness/UTI/Klebsiella/abnormal potassium levels. Other hx: Urinary retention requiring self-catheterization, pt thinks possible from effects from stroke as well as L arm/leg weakness, IDDM type II, bilateral neuropathy of hands and feet, PVD, [place] - 04/09/16, diabetic nephropathy CKD stage III/IV, normocytic anemia, UTIs Last Myocardial Infarction Date:: 2016 History of Any Multi-Drug Resistant Organisms: None Reported Past Surgical History: Coronary Bypass/CABG, Heart Catheterization, Heart Catheterization With Stent Additional Past Surgical History / Comment(s): 5 VESSEL BYPASS 2006, stent RT leg , arthrectomy/stent March 2016, bilateral cataract removal with lens implants Past Anesthesia/Blood Transfusion Reactions: No Reported Reaction Date of Last Stent Placement:: 2016 Past Psychological History: No Psychological Hx Reported Smoking Status: Former smoker Past Alcohol Use History: None Reported Past Drug Use History: None Reported - Past Family History Brother(s) Family Medical History: Myocardial Infarction ([place]) Mother Family Medical History: Diabetes Mellitus Additional Family Medical History / Comment(s): AT AGE 93 Father Family Medical History: [place]ocardial Infarction ([place]) Additional Family Medical History / Comment(s): AT AGE 83 FROM [place]. Medications and Allergies Home Medications Medication Instructions Recorded Confirmed Type Levothyroxine Sodium [Synthroid] 50 mcg PO DAILY@0600 05/09/21 06/25/21 History Atorvastatin [Lipitor] 80 mg PO HS tab 06/14/21 06/25/21 Rx Ipratropium-Albuterol Nebulize 3 ml INHALATION RT-QID #0 ml 06/14/21 06/25/21 Rx [Duoneb 0.5 mg-3 mg/3 ml Soln] Acetaminophen Tab [Tylenol] 650 mg PO Q6H PRN 06/22/21 06/25/21 History Ascorbic Acid [Vitamin C] 500 mg PO BID@0800,1700 06/22/21 06/25/21 History Aspirin 81 mg PO DAILY@17006/22/21 06/25/21 History Budesonide [Pulmicort] 1 mg INHALATION RT-BID@0800,169906/22/21 06/25/21 History Cholecalciferol [Vitamin D3 (25 50 mcg PO DAILY@169906/22/21 06/25/21 History Mcg = 1000 Iu)] Clopidogrel [Plavix] 75 mg PO DAILY@0800 06/22/21 06/25/21 History Docusate [Colace] 100 mg PO BID@0800,1700 06/22/21 06/25/21 History Furosemide [Lasix] 40 mg PO BID@0800,1700 06/22/21 06/25/21 History Isosorbide Mononitrate ER [Imdur] 30 mg PO DAILY@0800 04/05/22 04/08/22 History Magnesium Hydroxide [Milk of 7,200 mg PO Q48H PRN 06/22/21 06/25/21 History Magnesia Concentrate] Na Phos,M-B/Na Phos,Di-Ba [Fleet 133 ml RECTAL DAILY PRN 06/22/21 06/25/21 History Adult] Nitroglycerin Sl Tabs [Nitrostat] 0.4 mg SL Q5M PRN 06/22/21 06/25/21 History Pantoprazole [Protonix] 40 mg PO DAILY@0600 06/22/21 06/25/21 History Zinc Sulfate [Orazinc] 220 mg PO DAILY@1700 06/22/21 06/25/21 History bisacodyL [Dulcolax] 10 mg RECTAL DAILY PRN 06/22/21 06/25/21 History carvediloL [Coreg] 3.125 mg PO BID@0800,1700 06/22/21 06/25/21 History metOLazone 2.5 mg PO MOWEFR@0600 06/22/21 06/25/21 History Gabapentin [Neurontin] 400 mg PO TID@0600,1400,2100 #9 cap 06/23/21 06/25/21 Rx HYDROcodone/APAP 5-325MG [[place] 1 tab PO Q6H PRN #12 tab 06/23/21 06/25/21 Rx 5-325] Insulin Detemir (Levemir) [Levemir] 10 unit SQ HS #0 06/23/21 06/25/21 Rx INSULIN LISPRO (HumaLOG) [humaLOG] See Protocol SQ ACHS 06/25/21 06/25/21 Histo ry Ipratropium-Albuterol Nebulize 3 ml INHALATION RT-Q4H PRN 06/25/21 06/25/21 History [Duoneb 0.5 mg-3 mg/3 ml Soln] [place] Packet 1 packet PO BID@0800,1700 06/25/21 06/25/21 History Allergies Allergy/AdvReac Type Severity Reaction Status Date / Time Iodinated Contrast Media Allergy Rash/Hives Verified 06/25/21 13:56 Physical Exam Vitals: Vital Signs Temp Pulse Pulse Resp BP Pulse Ox 06/28/21 08:58 78 06/28/21 08:44 78 06/28/21 08:23 99.2 F 81 24 145/66 91 L 06/28/21 04:00 98.2 F 68 18 121/63 93 L 06/28/21 00:00 98.6 F 73 18 126/67 91 L 06/27/21 20:00 97.8 F 79 18 146/81 97 06/27/21 19:39 84 06/27/21 19:28 83 06/27/21 16:00 97.8 F 82 18 151/66 94 L 06/27/21 15:53 78 06/27/21 15:41 74 94 L 06/27/21 14:00 65 17 06/27/21 12:21 80 06/27/21 12:13 78 06/27/21 12:00 98.4 F 65 17 109/62 98 Intake and Output 06/27/21 06/28/21 06/28/21 22:59 06:59 14:59 Output Total 700 350 Balance -700 -350 Output: Urine 700 350 Other: Voiding Method Indwelling Catheter # Bowel Movements 1 Results - Lab Results Most recent lab results Calcium 8.0 mg/dL (8.4-10.2) L 06/28/21 08:10 06/28/21 08:10 06/28/21 08:10 Assessment and Plan Plan: Assessment: 1. Acute kidney injury mostly prerenal secondary to diuresis. Renal function improved with IV hydration. Creatinine was 2.04 on admission and is 1.47 today. UA is benign. CAT scan from April 2021 showed no evidence of hydronephrosis. 2. Chronic kidney disease stage IIIB with baseline creatinine in the range of 1.5-2 secondary to nephrosclerosis and cardiorenal syndrome. 3. Chronic systolic CHF with ejection fraction of 45-50% with mild to moderate mitral regurgitation and moderate pulmonary hypertension. 4. NSTEMI. Cardiology following. 5. Diabetes. 6. Hypertension with chronic kidney disease. Controlled. 7. Anemia of chronic kidney disease. Iron deficiency noted. Plan: Hep-Lock IV fluids. Start Lasix 40 mg orally once daily. Avoid nephrotoxins. Continue to monitor renal function and urine output. Add IV iron. Thank you for the consultation. I will continue to follow the patient with you during his hospital stay.
[2021-06-28 11:43] LABS: Glucose,Whole Blood 73 mg/dL (75-99)
[2021-06-28] MEDS: FUROSEMIDE 40 MG TAB PO SCH (12:46)
[2021-06-28] MEDS: SODIUM FERRIC GLUCONAT-SUCROSE 125 MG in SODIUM CHLORIDE 0.9% 100 ML IVPB SCH (12:46)
[2021-06-28 16:32] LABS: Glucose,Whole Blood 146 mg/dL (75-99)
--- NOTE | 2021-06-28 17:11 | P.CONS ---
History of Present Illness - Reason for Consult Consult date: 06/28/21 anemia Requesting physician: Janice Oakley - Chief Complaint chest pain - History of Present Illness Mr. Patton is an 85 yo male we have been asked to see Re: anemia. He has a PMH of CKD, decubitus ulcers, PVD, CAD, DMII, he is on asa and plavix for his cardiac Hx. Pt denies a Hx of anemia, epistaxis, black or bloody stool, he bruises easily. No Hx of malignancy, blood disorders. Review of Systems 10 point review of systems is negative except as stated in HPI Past Medical History Past Medical History: Coronary Artery Disease (CAD), Chest Pain / Angina, CVA/TIA, Diabetes Mellitus, Hypertension, Myocardial Infarction (VT), Renal Disease, Vascular Disorder Additional Past Medical History / Comment(s): Pt recently admitted to [facility] on 05/14/21 with generalized weakness/UTI/Klebsiella/abnormal potassium levels. Other hx: Urinary retention requiring self-catheterization, pt thinks possible from effects from stroke as well as L arm/leg weakness, IDDM type II, bilateral neuropathy of hands and feet, PVD, VT - 04/09/16, diabetic nephropathy CKD stage III/IV, normocytic anemia, UTIs Last Myocardial Infarction Date:: 2016 History of Any Multi-Drug Resistant Organisms: None Reported Past Surgical History: Coronary Bypass/CABG, Heart Catheterization, Heart Catheterization With Stent Additional Past Surgical History / Comment(s): 5 VESSEL BYPASS 2006, stent RT leg , arthrectomy/stent March 2016, bilateral cataract removal with lens implants Past Anesthesia/Blood Transfusion Reactions: No Reported Reaction Date of Last Stent Placement:: 2016 Past Psychological History: No Psychological Hx Reported Smoking Status: Former smoker Past Alcohol Use History: None Reported Past Drug Use History: None Reported - Past Family History Brother(s) Family Medical History: Myocardial Infarction (VT) Mother Family Medical History: Diabetes Mellitus Additional Family Medical History / Comment(s): AT AGE 93 Father Family Medical History: Myocardial Infarction (VT) Additional Family Medical History / Comment(s): AT AGE 83 FROM VT. Medications and Allergies Home Medications Medication Instructions Recorded Confirmed Type Levothyroxine Sodium [Synthroid] 50 mcg PO DAILY@0600 05/09/21 06/25/21 History Atorvastatin [Lipitor] 80 mg PO HS tab 06/14/21 06/25/21 Rx Ipratropium-Albuterol Nebulize 3 ml INHALATION RT-QID #0 ml 06/14/21 06/25/21 Rx [Duoneb 0.5 mg-3 mg/3 ml Soln] Acetaminophen Tab [Tylenol] 650 mg PO Q6H PRN 06/22/21 06/25/21 History Ascorbic Acid [Vitamin C] 500 mg PO BID@0800,1700 06/22/21 06/25/21 History Aspirin 81 mg PO DAILY@169906/22/21 06/25/21 History Budesonide [Pulmicort] 1 mg INHALATION RT-BID@0800,169906/22/21 06/25/21 History Cholecalciferol [Vitamin D3 (25 50 mcg PO DAILY@169906/22/21 06/25/21 History Mcg = 1000 Iu)] Clopidogrel [Plavix] 75 mg PO DAILY@0800 06/22/21 06/25/21 History Docusate [Colace] 100 mg PO BID@0800,169906/22/21 06/25/21 History Furosemide [Lasix] 40 mg PO BID@0800,169906/22/21 06/25/21 History Isosorbide Mononitrate ER [Imdur] 30 mg PO DAILY@0806/22/21 06/25/21 History Magnesium Hydroxide [Milk of 7,200 mg PO Q48H PRN 06/22/21 06/25/21 History Magnesia Concentrate] Na Phos,M-B/Na Phos,Di-Ba [Fleet 133 ml RECTAL DAILY PRN 06/22/21 06/25/21 History Adult] Nitroglycerin Sl Tabs [Nitrostat] 0.4 mg SL Q5M PRN 06/22/21 06/25/21 History Pantoprazole [Protonix] 40 mg PO DAILY@0600 06/22/21 06/25/21 History Zinc Sulfate [Orazinc] 220 mg PO DAILY@169906/22/21 06/25/21 History bisacodyL [Dulcolax] 10 mg RECTAL DAILY PRN 06/22/21 06/25/21 History carvediloL [Coreg] 3.125 mg PO BID@0800,1700 06/22/21 06/25/21 History metOLazone 2.5 mg PO MOWEFR@0600 06/22/21 06/25/21 History Gabapentin [Neurontin] 400 mg PO TID@0600,1400,2100 #9 cap 06/23/21 06/25/21 Rx HYDROcodone/APAP 5-325MG [Rhome 1 tab PO Q6H PRN #12 tab 06/23/21 06/25/21 Rx 5-325] Insulin Detemir (Levemir) [Levemir] 10 unit SQ HS #0 06/23/21 06/25/21 Rx INSULIN LISPRO (HumaLOG) [humaLOG] See Protocol SQ ACHS 06/25/21 06/25/21 History Ipratropium-Albuterol Nebulize 3 ml INHALATION RT-Q4H PRN 06/25/21 06/25/21 History [Duoneb 0.5 mg-3 mg/3 ml Soln] Gilbert Packet 1 packet PO BID@0800,1700 06/25/21 06/25/21 History Allergies Allergy/AdvReac Type Severity Reaction Status Date / Time Iodinated Contrast Media Allergy Rash/Hives Verified 06/25/21 13:56 Physical Exam Vitals: Vital Signs Temp Pulse Pulse Resp BP Pulse Ox 06/28/21 08:58 78 06/28/21 08:44 78 06/28/21 08:23 99.2 F 81 24 145/66 91 L 06/28/21 08:00 24 06/28/21 04:00 98.2 F 68 18 121/63 93 L 06/28/21 00:00 98.6 F 73 18 126/67 91 L 06/27/21 20:00 97.8 F 79 18 146/81 97 06/27/21 19:39 84 06/27/21 19:28 83 06/27/21 16:00 97.8 F 82 18 151/66 94 L 06/27/21 15:53 78 06/27/21 15:41 74 94 L 06/27/21 14:00 65 17 06/27/21 12:21 80 06/27/21 12:13 78 06/27/21 12:00 98.4 F 65 17 109/62 98 Intake and Output 04/10/22 04/11/22 04/11/22 22:59 06:59 14:59 Output Total 700 350 Balance -700 -350 Output: Urine 700 350 Other: Voiding Method Indwelling Catheter Indwelling Catheter # Bowel Movements 1 - Constitutional General appearance: average body habitus, cooperative, mild distress - EENT Eyes: anicteric sclerae, EOMI ENT: hearing grossly normal - Neck Neck: no lymphadenopathy - Respiratory Respiratory: bilateral: CTA - Cardiovascular Rhythm: regular Heart sounds: normal: S1, S2 Abnormal Heart Sounds: no systolic murmur, no diastolic murmur, no rub, no S3 Gallop, no S4 Gallop, no click, no other leg Peripheral Edema: bilateral: None - Gastrointestinal General gastrointestinal: no absent bowel sounds, no decreased bowel sounds, no distended, no hepatomegaly, no hyperactive bowel sounds, normal bowel sounds, no organomegaly, no rigid, no scaphoid, soft, no splenomegaly, no tenderness, no umbilical hernia, no ventral hernia - Integumentary BLE bronzed skin, ulcerations, lt brandt is wrapped. - Neurologic Neurologic: CNII-XII intact (Grossly) - Musculoskeletal Musculoskeletal: generalized weakness, strength equal bilaterally - Psychiatric Psychiatric: A&O x's 3, appropriate affect, intact judgment & insight Results CBC & Chem 7: 06/28/21 08:10 06/28/21 08:10 Labs: Abnormal Lab Results - Last 24 Hours (Table) 06/27/21 06/27/21 06/27/21 Range/Units 10:25 10:25 16:26 RBC (4.30-5.90) m/uL Hgb (13.0-17.5) gm/dL Hct (39.0-53.0) % RDW (11.5-15.5) % Lymphocytes # (1.0-4.8) k/uL Retic Count 2.9 H (0.5-2.0) % Potassium 3.3 L (3.5-5.1) mmol/L Carbon Dioxide 35 H (22-30) mmol/L BUN 72 H (9-20) mg/dL Creatinine 1.63 H (0.66-1.25) mg/dL Glucose 35 L* (74-99) mg/dL POC Glucose (mg/dL) 179 H (75-99) mg/dL Calcium 8.2 L (8.4-10.2) mg/dL Iron 15 L (65-175) ug/dL TIBC 148 L (228-460) ug/dL % Saturation 10.11 L (15.00-50.00) Transferrin 106.0 L (204.0-354.0) mg/dL TSH 8.610 H (0.465-4.680) mIU/L 06/27/21 06/28/21 06/28/21 Range/Units 20:15 06:03 08:10 RBC 3.49 L (4.30-5.90) m/uL Hgb 10.0 L (13.0-17.5) gm/dL Hct 30.9 L (39.0-53.0) % RDW 16.9 H (11.5-15.5) % Lymphocytes # 0.6 L (1.0-4.8) k/uL Retic Count (0.5-2.0) % Potassium (3.5-5.1) mmol/L Carbon Dioxide (22-30) mmol/L BUN (9-20) mg/dL Creatinine (0.66-1.25) mg/dL Glucose (74-99) mg/dL POC Glucose (mg/dL) 209 H 100 H (75-99) mg/dL Calcium (8.4-10.2) mg/dL Iron (65-175) ug/dL TIBC (228-460) ug/dL % Saturation (15.00-50.00) Transferrin (204.0-354.0) mg/dL TSH (0.465-4.680) mIU/L 06/28/21 Range/Units 08:10 RBC (4.30-5.90) m/uL Hgb (13.0-17.5) gm/dL Hct (39.0-53.0) % RDW (11.5-15.5) % Lymphocytes # (1.0-4.8) k/uL Retic Count (0.5-2.0) % Potassium (3.5-5.1) mmol/L Carbon Dioxide 36 H (22-30) mmol/L BUN 60 H (9-20) mg/dL Creatinine 1.47 H (0.66-1.25) mg/dL Glucose (74-99) mg/dL POC Glucose (mg/dL) (75-99) mg/dL Calcium 8.0 L (8.4-10.2) mg/dL Iron (65-175) ug/dL TIBC (228-460) ug/dL % Saturation (15.00-50.00) Transferrin (204.0-354.0) mg/dL TSH (0.465-4.680) mIU/L Assessment and Plan (1) Anemia Narrative/Plan: Normocytic, normochromic anemia, mild in 2019, progressive since 06/08. Ferritin increased since 06/08. CKD with elevated creatinine since 2015. Pt has lower extremity wounds, he states for few years, progressive last few months. There is documentation of sacral ulcers. Pt reports a Hx of ETOH, quitting 20 years ago. Most likely anemia of chronic disease and chronic inflammation. Addition lab work ordered for evaluation. Transfuse for Hgb<7 unless pt is symptomatic Current Visit: Yes Status: Chronic Priority: High Code(s): D64.9 - ANEMIA, UNSPECIFIED SNOMED Code(s): 942128466 Plan: Doctor attests: I performed a history and physical examination of this patient, developed impression and plan of care. Discussed with dictator. I agree with dictators note, documented as a scribe. Time with Patient: Greater than 30
[2021-06-28] MEDS: ZINC SULFATE 220 MG CAP PO SCH (17:23)
[2021-06-28] MEDS: CHOLECALCIFEROL 25 MCG (1000 IU) TABLET PO SCH (17:23)
[2021-06-28] MEDS: ATORVASTATIN 80 MG TAB PO SCH (19:45)
[2021-06-28] MEDS: HYDROcodone/APAP 5-325MG 1 EACH TAB PO PRN (19:45)
[2021-06-28 20:15] LABS: Glucose,Whole Blood 218 mg/dL (75-99)
[2021-06-28] MEDS: INSULIN DETEMIR (LEVEMIR) 100 UNIT/ML SYR SQ SCH (20:39)
--- NOTE | 2021-06-28 21:51 | P.PN ---
Subjective Progress Note Date: 06/28/21 Patient seen today he is doing slightly better than the weekend. He continues to suffer from multiple medical problems and debility. Objective - Vital Signs Vital signs: Vital Signs Temp 98 F 06/28/21 11:52 Pulse 81 06/28/21 16:00 Resp 18 06/28/21 16:00 BP 126/72 06/28/21 16:00 Pulse Ox 91 L 06/28/21 16:00 Intake & Output 06/28/21 06/28/21 06/29/21 06:59 18:59 06:59 Intake Total 360 Output Total 350 1600 Balance -350 -1240 Intake: Oral 360 Output: Urine 350 1600 Other: Voiding Method Indwelling Catheter Indwelling Catheter # Bowel Movements 1 - Exam GENERAL: This is a 85-year-old Pleasant and cooperative. HEENT: Head is atraumatic, normocephalic. Pupils are equal, round, and reactive to light. Sclerae anicteric. Conjunctivae are clear. Mucus membranes of the mouth are moist. Neck is supple. RESPIRATORY: Clear to auscultation. No wheezes, rales, or rhonchi. CARDIOVASCULAR: Regular rate and rhythm. GASTROINTESTINAL: No distention noted. Abdomen soft and round. Normal active bowel sounds auscultated x 4 quadrants. No pain or tenderness noted upon palpation. INTEGUMENTARY: Some skin breakdown in the sacral area stage II decubitus ulcer. EXTREMITIES: Diminished peripheral pulses. NEUROLOGIC: Cranial nerves II-XII intact. PSYCHIATRIC: Awake, alert, and oriented X 3. Appropriate affect. Intact judgement and insight. - Labs CBC & Chem 7: 06/28/21 08:10 06/28/21 08:10 Labs: Abnormal Lab Results - Last 24 Hours (Table) 06/28/21 06/28/21 06/28/21 Range/Units 06:03 08:10 08:10 RBC 3.49 L (4.30-5.90) m/uL Hgb 10.0 L (13.0-17.5) gm/dL Hct 30.9 L (39.0-53.0) % RDW 16.9 H (11.5-15.5) % Lymphocytes # 0.6 L (1.0-4.8) k/uL Carbon Dioxide 36 H (22-30) mmol/L BUN 60 H (9-20) mg/dL Creatinine 1.47 H (0.66-1.25) mg/dL POC Glucose (mg/dL) 100 H (75-99) mg/dL Calcium 8.0 L (8.4-10.2) mg/dL Ferritin (22.0-322.0) ng/mL 06/28/21 06/28/21 06/28/21 Range/Units 08:10 11:41 16:30 RBC (4.30-5.90) m/uL Hgb (13.0-17.5) gm/dL Hct (39.0-53.0) % RDW (11.5-15.5) % Lymphocytes # (1.0-4.8) k/uL Carbon Dioxide (22-30) mmol/L BUN (9-20) mg/dL Creatinine (0.66-1.25) mg/dL POC Glucose (mg/dL) 73 L 146 H (75-99) mg/dL Calcium (8.4-10.2) mg/dL Ferritin 752.0 H (22.0-322.0) ng/mL 06/28/21 Range/Units 20:13 RBC (4.30-5.90) m/uL Hgb (13.0-17.5) gm/dL Hct (39.0-53.0) % RDW (11.5-15.5) % Lymphocytes # (1.0-4.8) k/uL Carbon Dioxide (22-30) mmol/L BUN (9-20) mg/dL Creatinine (0.66-1.25) mg/dL POC Glucose (mg/dL) 218 H (75-99) mg/dL Calcium (8.4-10.2) mg/dL Ferritin (22.0-322.0) ng/mL Assessment and Plan (1) Dehydration Current Visit: Yes Status: Acute Code(s): E86.0 - DEHYDRATION SNOMED Code(s): 75549968 (2) Non-STEMI (non-ST elevated myocardial infarction) Current Visit: Yes Status: Acute Code(s): I21.4 - NON-ST ELEVATION (NSTEMI) MYOCARDIAL INFARCTION SNOMED Code(s): 24597294 (3) Non-pressure chronic ulcer of other part of right foot with fat layer exposed Current Visit: Yes Status: Acute Code(s): L97.512 - NON-PRS CHRONIC ULCER OTH PRT RIGHT FOOT W FAT LAYER EXPOSED SNOMED Code(s): 301674052 (4) Pulmonary edema Current Visit: Yes Status: Acute Code(s): J81.1 - CHRONIC PULMONARY EDEMA SNOMED Code(s): 85356286 (5) Anemia Current Visit: Yes Status: Chronic Priority: High Code(s): D64.9 - ANEMIA, UNSPECIFIED SNOMED Code(s): 794419953 (6) High risk for readmission Current Visit: No Status: Acute Code(s): Z91.89 - OTH PERSONAL RISK FACTORS, NOT ELSEWHERE CLASSIFIED SNOMED Code(s): 822488065 Plan: Patient is continued to improve over the weekend he continues to have medical debility and his non-ambulating he will likely return to [facility] for progressive rehab if condition worsens over time thin family would like to make him a palliative care they recommended medical management for his coronary artery disease and his heart disease. Plan to return to [facility] within 24-48 hours
[2021-06-29] MEDS: HYDROcodone/APAP 5-325MG 1 EACH TAB PO PRN ×2 (03:09→23:07)
[2021-06-29 06:15] LABS: Glucose,Whole Blood 48 mg/dL (75-99)
[2021-06-29] MEDS: LEVOTHYROXINE 50 MCG TAB PO SCH (06:23)
[2021-06-29 06:36] LABS: Glucose,Whole Blood 59 mg/dL (75-99)
[2021-06-29 06:52] LABS: Glucose,Whole Blood 94 mg/dL (75-99)
[2021-06-29 08:53] LABS: Magnesium 2.4 mg/dL (1.6-2.3); Potassium 3.3 mmol/L (3.5-5.1)
[2021-06-29] MEDS: BUDESONIDE 1 MG/2 ML NEBU INHALATION SCH ×2 (09:01→20:27)
[2021-06-29] MEDS: IPRATROPIUM-ALBUTEROL 3 ML NEB INHALATION SCH ×4 (09:01→20:27)
[2021-06-29] MEDS: SODIUM FERRIC GLUCONAT-SUCROSE 125 MG in SODIUM CHLORIDE 0.9% 100 ML IVPB SCH (09:04)
[2021-06-29] MEDS: carvediloL 3.125 MG TAB PO SCH ×2 (09:07→17:50)
[2021-06-29] MEDS: FUROSEMIDE 40 MG TAB PO SCH (09:07)
[2021-06-29] MEDS: ISOSORBIDE MONONITRATE ER 30 MG TAB.ER.24H PO SCH (09:07)
[2021-06-29] MEDS: PANTOPRAZOLE 40 MG/10 ML VIAL IVP SCH (09:08)
[2021-06-29] MEDS: DOCUSATE 100 MG CAP PO SCH ×2 (09:08→17:50)
[2021-06-29] MEDS ORDERED: POTASSIUM CHLORIDE ER 20 MEQ TAB.ER PO STA (10:04)
--- NOTE | 2021-06-29 10:06 | P.PN ---
Subjective Patient is seen in follow-up for acute kidney injury on chronic kidney disease. Patient has chronic kidney disease stage IIIB with baseline creatinine in the range of 1.5-2 secondary to nephrosclerosis. Renal function improved from admission. Has a Alves catheter. Nonoliguric. On 5 L nasal cannula. Hemodynamically stable. Denies chest pain or shortness of breath. No vomiting or diarrhea. Doesn't like hospital food. Vital signs are stable. General: Awake and alert. No acute distress. HEENT: Head exam is unremarkable. LUNGS: Breath sounds decreased. HEART: Rate and Rhythm are regular. ABDOMEN: Soft, no distention. EXTREMITITES: No edema. Objective - Vital Signs Vital signs: Vital Signs Temp 98.7 F 06/29/21 08:00 Pulse 77 06/29/21 08:00 Resp 18 06/29/21 08:00 BP 136/69 06/29/21 08:00 Pulse Ox 95 06/29/21 08:00 Intake & Output 06/28/21 06/29/21 06/29/21 18:59 06:59 18:59 Intake Total 360 480 Output Total 1600 575 Balance -1240 -95 Intake: Oral 360 480 Output: Urine 1600 575 Uretheral (Alves) 225 Other: Voiding Method Indwelling Catheter Indwelling Catheter - Labs CBC & Chem 7: 06/28/21 08:10 06/29/21 07:56 Labs: Abnormal Lab Results - Last 24 Hours (Table) 06/28/21 06/28/21 06/28/21 Range/Units 08:10 11:41 16:30 Potassium (3.5-5.1) mmol/L Chloride (98-107) mmol/L Carbon Dioxide (22-30) mmol/L BUN (9-20) mg/dL Creatinine (0.66-1.25) mg/dL POC Glucose (mg/dL) 73 L 146 H (75-99) mg/dL Calcium (8.4-10.2) mg/dL Magnesium (1.6-2.3) mg/dL Ferritin 752.0 H (22.0-322.0) ng/mL 06/28/21 06/29/21 06/29/21 Range/Units 20:13 06:14 06:34 Potassium (3.5-5.1) mmol/L Chloride (98-107) mmol/L Carbon Dioxide (22-30) mmol/L BUN (9-20) mg/dL Creatinine (0.66-1.25) mg/dL POC Glucose (mg/dL) 218 H 48 L 59 L (75-99) mg/dL Calcium (8.4-10.2) mg/dL Magnesium (1.6-2.3) mg/dL Ferritin (22.0-322.0) ng/mL 06/29/21 Range/Units 07:56 Potassium 3.3 L (3.5-5.1) mmol/L Chloride 97 L (98-107) mmol/L Carbon Dioxide 37 H (22-30) mmol/L BUN 56 H (9-20) mg/dL Creatinine 1.56 H (0.66-1.25) mg/dL POC Glucose (mg/dL) (75-99) mg/dL Calcium 8.0 L (8.4-10.2) mg/dL Magnesium 2.4 H (1.6-2.3) mg/dL Ferritin (22.0-322.0) ng/mL Assessment and Plan Plan: Assessment: 1. Acute kidney injury mostly prerenal secondary to diuresis. Renal function improved with IV hydration. Creatinine was 2.04 on admission and is stable at 1.56 today. UA is benign. CAT scan from April 2021 showed no evidence of hydronephrosis. 2. Chronic kidney disease stage IIIB with baseline creatinine in the range of 1.5-2 secondary to nephrosclerosis and cardiorenal syndrome. 3. Chronic systolic CHF with ejection fraction of 45-50% with mild to moderate mitral regurgitation and moderate pulmonary hypertension. 4. NSTEMI. Cardiology following. 5. Diabetes. 6. Hypertension with chronic kidney disease. Controlled. 7. Anemia of chronic kidney disease. Iron deficiency noted. 8. Hypokalemia from diuresis. Plan: Maintain Lasix 40 mg orally once daily. Avoid nephrotoxins. Continue to monitor renal function and urine output. Maintain IV iron. Replace potassium. Dates discharge to [facility].
[2021-06-29 11:49] LABS: Glucose,Whole Blood 138 mg/dL (75-99)
[2021-06-29 16:33] LABS: Glucose,Whole Blood 195 mg/dL (75-99)
[2021-06-29] MEDS: ZINC SULFATE 220 MG CAP PO SCH (17:50)
[2021-06-29] MEDS: CHOLECALCIFEROL 25 MCG (1000 IU) TABLET PO SCH (17:50)
[2021-06-29 20:00] LABS: Glucose,Whole Blood 228 mg/dL (75-99)
--- NOTE | 2021-06-29 20:31 | P.PN ---
Subjective Progress Note Date: 06/29/21 Principal diagnosis: anemia in follow-up patient denies any new complaints, no bleeding Objective - Vital Signs Vital signs: Vital Signs Temp 98.7 F 06/29/21 08:00 Pulse 77 06/29/21 08:00 Resp 18 06/29/21 08:00 BP 136/69 06/29/21 08:00 Pulse Ox 95 06/29/21 08:00 Intake & Output 06/28/21 06/29/21 06/29/21 18:59 06:59 18:59 Intake Total 360 480 Output Total 1600 575 Balance -1240 -95 Intake: Oral 360 480 Output: Urine 1600 575 Uretheral (Alves) 225 Other: Voiding Method Indwelling Catheter Indwelling Catheter Indwelling Catheter - Constitutional General appearance: Present: average body habitus, cooperative, no acute distress - EENT Eyes: Present: anicteric sclerae, EOMI ENT: Present: hearing grossly normal - Respiratory Details: respirations even and unlabored at rest - Musculoskeletal Musculoskeletal: Present: generalized weakness - Psychiatric Psychiatric: Present: A&O x's 3, appropriate affect, intact judgment & insight - Labs CBC & Chem 7: 06/28/21 08:10 06/29/21 07:56 Labs: Abnormal Lab Results - Last 24 Hours (Table) 06/28/21 06/28/21 06/28/21 Range/Units 08:10 16:30 20:13 Potassium (3.5-5.1) mmol/L Chloride (98-107) mmol/L Carbon Dioxide (22-30) mmol/L BUN (9-20) mg/dL Creatinine (0.66-1.25) mg/dL POC Glucose (mg/dL) 146 H 218 H (75-99) mg/dL Calcium (8.4-10.2) mg/dL Magnesium (1.6-2.3) mg/dL Ferritin 752.0 H (22.0-322.0) ng/mL 06/29/21 06/29/21 06/29/21 Range/Units 06:14 06:34 07:56 Potassium 3.3 L (3.5-5.1) mmol/L Chloride 97 L (98-107) mmol/L Carbon Dioxide 37 H (22-30) mmol/L BUN 56 H (9-20) mg/dL Creatinine 1.56 H (0.66-1.25) mg/dL POC Glucose (mg/dL) 48 L 59 L (75-99) mg/dL Calcium 8.0 L (8.4-10.2) mg/dL Magnesium 2.4 H (1.6-2.3) mg/dL Ferritin (22.0-322.0) ng/mL 06/29/21 Range/Units 11:37 Potassium (3.5-5.1) mmol/L Chloride (98-107) mmol/L Carbon Dioxide (22-30) mmol/L BUN (9-20) mg/dL Creatinine (0.66-1.25) mg/dL POC Glucose (mg/dL) 138 H (75-99) mg/dL Calcium (8.4-10.2) mg/dL Magnesium (1.6-2.3) mg/dL Ferritin (22.0-322.0) ng/mL Assessment and Plan (1) Anemia Narrative/Plan: Normocytic, normochromic anemia, mild in 2019, progressive since 06/08. Ferritin increased since 06/08. CKD with elevated creatinine since 2016. Pt has lower extremity wounds, he states for few years, progressive last few months. There is documentation of sacral ulcers. Pt reports a Hx of ETOH, quitting 20 years ago. Most likely anemia of chronic disease and chronic inflammation. Most of the workup is still pending. Ferritin is elevated, most suggestive of inflammation. Transfuse for Hgb<7 unless pt is symptomatic. patient received 1 unit. Hemoglobin was stable yesterday. Current Visit: Yes Status: Chronic Priority: High Code(s): D64.9 - ANEMIA, UNSPECIFIED SNOMED Code(s): 550898010
[2021-06-29 21:56] LABS: Protein, Total 5.7 g/dL (6.2-8.2)
[2021-06-29] MEDS: ATORVASTATIN 80 MG TAB PO SCH (23:07)
[2021-06-29] MEDS: INSULIN DETEMIR (LEVEMIR) 100 UNIT/ML SYR SQ SCH (23:35)
[2021-06-30 05:47] LABS: Glucose,Whole Blood 116 mg/dL (75-99)
[2021-06-30] MEDS: LEVOTHYROXINE 50 MCG TAB PO SCH (06:07)
[2021-06-30] MEDS: IPRATROPIUM-ALBUTEROL 3 ML NEB INHALATION SCH ×4 (08:58→19:15)
[2021-06-30] MEDS: BUDESONIDE 1 MG/2 ML NEBU INHALATION SCH ×2 (08:59→19:15)
[2021-06-30] MEDS: PANTOPRAZOLE 40 MG/10 ML VIAL IVP SCH (09:05)
[2021-06-30] MEDS: ISOSORBIDE MONONITRATE ER 30 MG TAB.ER.24H PO SCH (09:05)
[2021-06-30] MEDS: DOCUSATE 100 MG CAP PO SCH ×2 (09:06→16:55)
[2021-06-30] MEDS: FUROSEMIDE 40 MG TAB PO SCH (09:06)
[2021-06-30] MEDS: carvediloL 3.125 MG TAB PO SCH ×2 (09:06→17:00)
[2021-06-30] MEDS: HYDROcodone/APAP 5-325MG 1 EACH TAB PO PRN ×3 (09:06→23:34)
--- NOTE | 2021-06-30 09:57 | P.PN ---
Subjective Patient is seen in follow-up for acute kidney injury on chronic kidney disease. Patient has chronic kidney disease stage IIIB with baseline creatinine in the range of 1.5-2 secondary to nephrosclerosis. Renal function improved from admission. Has a Alves catheter. Nonoliguric. On 4 L nasal cannula. Hemodynamically stable. Denies chest pain or shortness of breath. No vomiting or diarrhea. Appetite fair. Vital signs are stable. General: Awake and alert. No acute distress. HEENT: Head exam is unremarkable. LUNGS: Breath sounds decreased. HEART: Rate and Rhythm are regular. ABDOMEN: Soft, no distention. EXTREMITITES: No edema. Objective - Vital Signs Vital signs: Vital Signs Temp 98.3 F 06/30/21 08:57 Pulse 80 06/30/21 09:14 Resp 18 06/30/21 08:57 BP 150/67 06/30/21 08:57 Pulse Ox 95 06/30/21 09:02 Intake & Output 06/29/21 06/30/21 06/30/21 18:59 06:59 18:59 Intake Total 360 120 Output Total 300 700 Balance -300 -340 120 Intake: Oral 360 120 Output: Urine 300 700 Other: Voiding Method Indwelling Catheter Indwelling Catheter # Bowel Movements 1 1 - Labs CBC & Chem 7: 06/28/21 08:10 06/29/21 07:56 Labs: Abnormal Lab Results - Last 24 Hours (Table) 06/28/21 06/29/21 06/29/21 Range/Units 08:10 11:37 12:44 POC Glucose (mg/dL) 138 H (75-99) mg/dL Total Protein (PEP) 5.7 L (6.2-8.2) g/dL Methylmalonic Acid 0.53 H (<0.40) umol/L 06/29/21 06/29/21 06/30/21 Range/Units 16:32 19:58 05:45 POC Glucose (mg/dL) 195 H 228 H 116 H (75-99) mg/dL Total Protein (PEP) (6.2-8.2) g/dL Methylmalonic Acid (<0.40) umol/L Assessment and Plan Plan: Assessment: 1. Acute kidney injury mostly prerenal secondary to diuresis. Renal function improved with IV hydration. Creatinine was 2.04 on admission and is stable at 1.56 yesterday. UA is benign. CAT scan from April 2021 showed no evidence of hydronephrosis. 2. Chronic kidney disease stage IIIB with baseline creatinine in the range of 1.5-2 secondary to nephrosclerosis and cardiorenal syndrome. 3. Chronic systolic CHF with ejection fraction of 45-50% with mild to moderate mitral regurgitation and moderate pulmonary hypertension. 4. NSTEMI. Cardiology following. 5. Diabetes. 6. Hypertension with chronic kidney disease. Stable. 7. Anemia of chronic kidney disease. Iron deficiency noted. 8. Hypokalemia from diuresis. Replaced. Plan: Maintain Lasix 40 mg orally once daily. Avoid nephrotoxins. Continue to monitor renal function and urine output. Maintain IV iron. Awaits discharged to [facility]. Repeat BMP and magnesium level 2-3 days postdischarge. Follow up outpatient in 1 week.
[2021-06-30] MEDS: SODIUM FERRIC GLUCONAT-SUCROSE 125 MG in SODIUM CHLORIDE 0.9% 100 ML IVPB SCH (10:02)
[2021-06-30 10:44] LABS: Calcium 7.9 mg/dL (8.4-10.2)
[2021-06-30 10:59] LABS: Potassium 5.1 mmol/L (3.5-5.1)
[2021-06-30 11:00] LABS: Magnesium 2.3 mg/dL (1.6-2.3)
[2021-06-30 11:26] LABS: Glucose,Whole Blood 183 mg/dL (75-99)
[2021-06-30 16:54] LABS: Glucose,Whole Blood 245 mg/dL (75-99)
[2021-06-30] MEDS: CHOLECALCIFEROL 25 MCG (1000 IU) TABLET PO SCH (16:58)
[2021-06-30] MEDS: ZINC SULFATE 220 MG CAP PO SCH (16:59)
--- NOTE | 2021-06-30 17:15 | P.PN ---
Subjective Progress Note Date: 06/29/21 Patient seen today he is doing slightly better than the weekend. He continues to suffer from multiple medical problems and debility. Patient is almost back to his baseline he is not doing well this was discussed with his son Amador. Objective - Vital Signs Vital signs: Vital Signs Temp 98.3 F 06/30/21 08:57 Pulse 81 06/30/21 15:50 Resp 16 06/30/21 12:53 BP 126/59 06/30/21 15:50 Pulse Ox 92 L 06/30/21 17:05 Intake & Output 06/29/21 06/30/21 06/30/21 18:59 06:59 18:59 Intake Total 360 120 Output Total 300 700 Balance -300 -340 120 Intake: Oral 360 120 Output: Urine 300 700 Other: Voiding Method Indwelling Catheter Indwelling Catheter Indwelling Catheter # Bowel Movements 1 1 - Exam GENERAL: This is a 85-year-old Pleasant and cooperative. HEENT: Head is atraumatic, normocephalic. Pupils are equal, round, and reactive to light. Sclerae anicteric. Conjunctivae are clear. Mucus membranes of the mouth are moist. Neck is supple. RESPIRATORY: Clear to auscultation. No wheezes, rales, or rhonchi. CARDIOVASCULAR: Regular rate and rhythm. GASTROINTESTINAL: No distention noted. Abdomen soft and round. Normal active bowel sounds auscultated x 4 quadrants. No pain or tenderness noted upon palpation. INTEGUMENTARY: Some skin breakdown in the sacral area stage II decubitus ulcer. EXTREMITIES: Diminished peripheral pulses. NEUROLOGIC: Cranial nerves II-XII intact. PSYCHIATRIC: Awake, alert, and oriented X 3. Appropriate affect. Intact judgement and insight. - Labs CBC & Chem 7: 06/28/21 08:10 06/30/21 10:03 Labs: Abnormal Lab Results - Last 24 Hours (Table) 06/28/21 06/29/21 06/29/21 Range/Units 08:10 12:44 19:58 Carbon Dioxide (22-30) mmol/L BUN (9-20) mg/dL Creatinine (0.66-1.25) mg/dL Glucose (74-99) mg/dL POC Glucose (mg/dL) 228 H (75-99) mg/dL Calcium (8.4-10.2) mg/dL Total Protein (PEP) 5.7 L (6.2-8.2) g/dL Methylmalonic Acid 0.53 H (<0.40) umol/L 06/30/21 06/30/21 06/30/21 Range/Units 05:45 10:03 11:21 Carbon Dioxide 34 H (22-30) mmol/L BUN 51 H (9-20) mg/dL Creatinine 1.40 H (0.66-1.25) mg/dL Glucose 119 H (74-99) mg/dL POC Glucose (mg/dL) 116 H 183 H (75-99) mg/dL Calcium 7.9 L (8.4-10.2) mg/dL Total Protein (PEP) (6.2-8.2) g/dL Methylmalonic Acid (<0.40) umol/L 06/30/21 Range/Units 16:53 Carbon Dioxide (22-30) mmol/L BUN (9-20) mg/dL Creatinine (0.66-1.25) mg/dL Glucose (74-99) mg/dL POC Glucose (mg/dL) 245 H (75-99) mg/dL Calcium (8.4-10.2) mg/dL Total Protein (PEP) (6.2-8.2) g/dL Methylmalonic Acid (<0.40) umol/L Assessment and Plan (1) Dehydration Current Visit: Yes Status: Acute Code(s): E86.0 - DEHYDRATION SNOMED Code(s): 62133115 (2) Non-STEMI (non-ST elevated myocardial infarction) Current Visit: Yes Status: Acute Code(s): I21.4 - NON-ST ELEVATION (NSTEMI) MYOCARDIAL INFARCTION SNOMED Code(s): 55662186 (3) Non-pressure chronic ulcer of other part of right foot with fat layer exposed Current Visit: Yes Status: Acute Code(s): L97.512 - NON-PRS CHRONIC ULCER OTH PRT RIGHT FOOT W FAT LAYER EXPOSED SNOMED Code(s): 687864008 (4) Pulmonary edema Current Visit: Yes Status: Acute Code(s): J81.1 - CHRONIC PULMONARY EDEMA SNOMED Code(s): 83038400 (5) Anemia Current Visit: Yes Status: Chronic Priority: High Code(s): D64.9 - ANEMIA, UNSPECIFIED SNOMED Code(s): 362648859 (6) High risk for readmission Current Visit: No Status: Acute Code(s): Z91.89 - OTH PERSONAL RISK FACTORS, NOT ELSEWHERE CLASSIFIED SNOMED Code(s): 688784495 Plan: Patient is continued to improve over the weekend he continues to have medical debility and his non-ambulating he will likely return to [facility] for progressive rehab if condition worsens over time then family would like to make him a palliative care they recommended medical management for his coronary artery disease and his heart disease. Plan to return to [facility] within 24-48 hours
[2021-06-30 19:08] LABS: Glucose,Whole Blood 319 mg/dL (75-99)
[2021-06-30 19:47] LABS: Albumin 2.17 g/dL (3.80-4.90); Gamma Globulin 1.06 g/dL (0.70-1.50)
[2021-06-30] MEDS: ATORVASTATIN 80 MG TAB PO SCH (20:29)
[2021-06-30] MEDS: INSULIN DETEMIR (LEVEMIR) 100 UNIT/ML SYR SQ SCH (20:29)
[2021-07-01 05:31] LABS: Glucose,Whole Blood 92 mg/dL (75-99)
[2021-07-01] MEDS: LEVOTHYROXINE 50 MCG TAB PO SCH (06:04)
[2021-07-01] MEDS: HYDROcodone/APAP 5-325MG 1 EACH TAB PO PRN (08:38)
[2021-07-01] MEDS: SODIUM FERRIC GLUCONAT-SUCROSE 125 MG in SODIUM CHLORIDE 0.9% 100 ML IVPB SCH (08:39)
[2021-07-01] MEDS: PANTOPRAZOLE 40 MG/10 ML VIAL IVP SCH (08:39)
[2021-07-01] MEDS: ISOSORBIDE MONONITRATE ER 30 MG TAB.ER.24H PO SCH (08:39)
[2021-07-01] MEDS: FUROSEMIDE 40 MG TAB PO SCH (08:39)
[2021-07-01] MEDS: carvediloL 3.125 MG TAB PO SCH ×2 (08:39→16:59)
[2021-07-01] MEDS: DOCUSATE 100 MG CAP PO SCH ×2 (08:41→16:59)
[2021-07-01] MEDS: BUDESONIDE 1 MG/2 ML NEBU INHALATION SCH ×2 (09:01→16:33)
[2021-07-01] MEDS: IPRATROPIUM-ALBUTEROL 3 ML NEB INHALATION SCH ×3 (09:01→16:30)
[2021-07-01 09:40] LABS: Calcium 8.3 mg/dL (8.4-10.2); Magnesium 2.4 mg/dL (1.6-2.3); Potassium 4.1 mmol/L (3.5-5.1)
--- NOTE | 2021-07-01 10:01 | P.PN ---
Subjective Patient is seen in follow-up for acute kidney injury on chronic kidney disease. Patient has chronic kidney disease stage IIIB with baseline creatinine in the range of 1.5-2 secondary to nephrosclerosis. Renal function improved from admission. Has a Alves catheter. Nonoliguric. On 5 L nasal cannula. Hemodynamically stable. Denies chest pain or shortness of breath. No vomiting or diarrhea. Appetite fair. No active complaints. Vital signs are stable. General: Awake and alert. No acute distress. HEENT: Head exam is unremarkable. LUNGS: Breath sounds decreased. HEART: Rate and Rhythm are regular. ABDOMEN: Soft, no distention. EXTREMITITES: No edema. Objective - Vital Signs Vital signs: Vital Signs Temp 97.9 F 07/01/21 04:00 Pulse 78 07/01/21 09:01 Resp 20 07/01/21 04:00 BP 138/63 07/01/21 04:00 Pulse Ox 96 07/01/21 09:03 Intake & Output 06/30/21 07/01/21 07/01/21 18:59 06:59 18:59 Intake Total 240 120 Output Total 600 525 300 Balance -360 -525 -180 Weight 68 kg Intake: Oral 240 120 Output: Urine 600 525 300 Other: Voiding Method Indwelling Catheter Indwelling Catheter - Labs CBC & Chem 7: 06/28/21 08:10 07/01/21 08:24 Labs: Abnormal Lab Results - Last 24 Hours (Table) 06/29/21 06/30/21 06/30/21 Range/Units 12:44 10:03 11:21 Carbon Dioxide 34 H (22-30) mmol/L BUN 51 H (9-20) mg/dL Creatinine 1.40 H (0.66-1.25) mg/dL Glucose 119 H (74-99) mg/dL POC Glucose (mg/dL) 183 H (75-99) mg/dL Calcium 7.9 L (8.4-10.2) mg/dL Magnesium (1.6-2.3) mg/dL Albumin (PEP) 2.17 L (3.80-4.90) g/dL Vsmhr-3-Fhphopsac 0.66 H (0.10-0.40) g/dL Xjlhf-3-Hqxapwqjn 1.04 H (0.60-1.00) g/dL 06/30/21 06/30/21 07/01/21 Range/Units 16:53 19:06 08:24 Carbon Dioxide 39 H (22-30) mmol/L BUN 44 H (9-20) mg/dL Creatinine 1.60 H (0.66-1.25) mg/dL Glucose 64 L (74-99) mg/dL POC Glucose (mg/dL) 245 H 319 H (75-99) mg/dL Calcium 8.3 L (8.4-10.2) mg/dL Magnesium 2.4 H (1.6-2.3) mg/dL Albumin (PEP) (3.80-4.90) g/dL Yjdtj-9-Cdxzgpudf (0.10-0.40) g/dL Gbqdq-8-Tptqbdmlu (0.60-1.00) g/dL Assessment and Plan Plan: Assessment: 1. Acute kidney injury mostly prerenal secondary to diuresis. Renal function improved with IV hydration. Creatinine was 2.04 on admission and is stable at 1.6 today. UA is benign. CAT scan from April 2021 showed no evidence of hydronephrosis. 2. Chronic kidney disease stage IIIB with baseline creatinine in the range of 1.5-2 secondary to nephrosclerosis and cardiorenal syndrome. 3. Chronic systolic CHF with ejection fraction of 45-50% with mild to moderate mitral regurgitation and moderate pulmonary hypertension. 4. NSTEMI. Cardiology following. 5. Diabetes. 6. Hypertension with chronic kidney disease. Stable. 7. Anemia of chronic kidney disease. Iron deficiency noted. 8. Hypokalemia from diuresis. Replaced. Improved. Plan: Maintain Lasix 40 mg orally once daily. Avoid nephrotoxins. Continue to monitor renal function and urine output. Maintain IV iron. Awaits discharged to ECF. Repeat BMP and magnesium level 2-3 days postdischarge. Follow up outpatient in 1 week.
[2021-07-01 11:50] LABS: Glucose,Whole Blood 105 mg/dL (75-99)
--- NOTE | 2021-07-01 12:19 | P.CONS ---
History of Present Illness - Reason for Consult Consult date: 07/01/21 Multipleco-morbidities, declining health, goals of care Requesting physician: Fred Duff - Chief Complaint Generalized weakness - History of Present Illness Patient is a 85-year-old male seen in consultation for acute kidney injury on chronic kidney disease. Patient has chronic kidney disease stage IIIB with baseline creatinine in the range of 1.5-2 secondary to nephrosclerosis. Creatinine on admission was 2.04 and is down to 1.47 today. Patient presented to the hospital due to generalized weakness and twitching. He was also having generalized body pain which seems was improved. Patient's currently resting in bed and is not a very reliable historian. He was diagnosed with an STEMI by cardiology due to elevated troponins. He does a history of coronary disease with history of CABG and PCI. Patient has history of diabetes. He has been receiving IV fluids. Chest x-ray shows of a fluid overload. Patient's proBNP was elevated at 18,700. Patient has history of systolic CHF with ejection fraction of 45-50% with mild to moderate mitral regurgitation and moderate pulmonary hypertension. Review of Systems Review Of Systems: Constitutional: No fever, no chills, no night sweats. + weakness, fatigue or lethargy. + daytime sleepiness. HEENT: No headache. No blurred vision or double vision, no loss of vision. No loss of Hearing, no ringing in the ears, no dizziness. No nasal drainage or congestion. No epistaxis. No sore throat. Lungs: + shortness of breath with exertion and at rest, and non-productive coug h. No wheezing. Cardiovascular: No chest pain, no lower extremity edema. No palpitations. No paroxysmal nocturnal dyspnea. + orthopnea. No lightheadedness or dizziness. No syncopal episodes. Abdominal: No abdominal pain. No nausea, vomiting. No diarrhea. No constipation. No bloody or tarry stools.. + loss of appetite. Genitourinary: + urinary retention, Alves present, straight caths self at home Musculoskeletal: No myalgias. + muscle weakness, no frequent falls. No back pain. No neck pain. Integumentary: + wounds to right greater toe, sacrum, and right foot. No rash or pruritus. No unusual bruising. Neurologic: No aphasia. No facial droop. No change in mentation. No head injury. No headache. No paralysis. No paresthesia. Psychiatric: + depression, + anxiety, + agitation. Past Medical History Past Medical History: Coronary Artery Disease (CAD), Chest Pain / Angina, Heart Failure, CVA/TIA, Diabetes Mellitus, Hyperlipidemia, Hypertension, Myocardial Infarction (SD), Myocardial Infarction (non Q-wave), Renal Disease, Vascular Disorder Additional Past Medical History / Comment(s): Pt recently admitted to [facility] on 05/14/21 with generalized weakness/UTI/Klebsiella/abnormal potassium levels. Other hx: Urinary retention requiring self-catheterization, pt thinks possible from effects from stroke as well as L arm/leg weakness, IDDM type II, bilateral neuropathy of hands and feet, PVD, SD - 04/09/16, diabetic nephropathy CKD stage III/IV, normocytic anemia, UTIs Last Myocardial Infarction Date:: 2016 History of Any Multi-Drug Resistant Organisms: None Reported Past Surgical History: Coronary Bypass/CABG, Heart Catheterization, Heart Catheterization With Stent Additional Past Surgical History / Comment(s): 5 VESSEL BYPASS 2006, stent RT leg , arthrectomy/stent March 2016, bilateral cataract removal with lens implants Past Anesthesia/Blood Transfusion Reactions: No Reported Reaction Date of Last Stent Placement:: 2016 Past Psychological History: No Psychological Hx Reported Smoking Status: Former smoker Past Alcohol Use History: None Reported Past Drug Use History: None Reported - Past Family History Brother(s) Family Medical History: Myocardial Infarction (SD) Mother Family Medical History: Diabetes Mellitus Additional Family Medical History / Comment(s): AT AGE 93 Father Family Medical History: Myocardial Infarction (SD) Additional Family Medical History / Comment(s): AT AGE 83 FROM SD. Medications and Allergies Home Medications Medication Instructions Recorded Confirmed Type Levothyroxine Sodium [Synthroid] 50 mcg PO DAILY@0600 05/09/21 06/25/21 History Atorvastatin [Lipitor] 80 mg PO HS tab 06/14/21 06/25/21 Rx Ipratropium-Albuterol Nebulize 3 ml INHALATION RT-QID #0 ml 06/14/21 06/25/21 Rx [Duoneb 0.5 mg-3 mg/3 ml Soln] Acetaminophen Tab [Tylenol] 650 mg PO Q6H PRN 06/22/21 06/25/21 History Ascorbic Acid [Vitamin C] 500 mg PO BID@0800,1700 06/22/21 06/25/21 History Aspirin 81 mg PO DAILY@169906/22/21 06/25/21 History Budesonide [Pulmicort] 1 mg INHALATION RT-BID@0800,169906/22/21 06/25/21 History Cholecalciferol [Vitamin D3 (25 50 mcg PO DAILY@169906/22/21 06/25/21 History Mcg = 1000 Iu)] Clopidogrel [Plavix] 75 mg PO DAILY@0800 06/22/21 06/25/21 History Docusate [Colace] 100 mg PO BID@0800,169906/22/21 06/25/21 History Furosemide [Lasix] 40 mg PO BID@0800,169906/22/21 06/25/21 History Isosorbide Mononitrate ER [Imdur] 30 mg PO DAILY@0800 06/22/21 06/25/21 History Magnesium Hydroxide [Milk of 7,200 mg PO Q48H PRN 06/22/21 06/25/21 History Magnesia Concentrate] Na Phos,M-B/Na Phos,Di-Ba [Fleet 133 ml RECTAL DAILY PRN 06/22/21 06/25/21 History Adult] Nitroglycerin Sl Tabs [Nitrostat] 0.4 mg SL Q5M PRN 06/22/21 06/25/21 History Pantoprazole [Protonix] 40 mg PO DAILY@0600 06/22/21 06/25/21 History Zinc Sulfate [Orazinc] 220 mg PO DAILY@169906/22/21 06/25/21 History bisacodyL [Dulcolax] 10 mg RECTAL DAILY PRN 06/22/21 06/25/21 History carvediloL [Coreg] 3.125 mg PO BID@0800,1700 06/22/21 06/25/21 History metOLazone 2.5 mg PO MOWEFR@0600 06/22/21 06/25/21 History Gabapentin [Neurontin] 400 mg PO TID@0600,1400,2100 #9 cap 06/23/21 06/25/21 Rx HYDROcodone/APAP 5-325MG [Beulah 1 tab PO Q6H PRN #12 tab 06/23/21 06/25/21 Rx 5-325] Insulin Detemir (Levemir) [Levemir] 10 unit SQ HS #0 06/23/21 06/25/21 Rx INSULIN LISPRO (HumaLOG) [humaLOG] See Protocol SQ ACHS 06/25/21 06/25/21 History Ipratropium-Albuterol Nebulize 3 ml INHALATION RT-Q4H PRN 06/25/21 06/25/21 History [Duoneb 0.5 mg-3 mg/3 ml Soln] Gilbert Packet 1 packet PO BID@0800,1700 06/25/21 06/25/21 History Allergies Allergy/AdvReac Type Severity Reaction Status Date / Time Iodinated Contrast Media Allergy Rash/Hives Verified 06/25/21 13:56 Physical Exam Vitals: General: Patient awake alert and oriented x 3. HEENT: Head is atraumatic, normocephalic Neck is supple. Sclerae are clear. Pupils equal, round and reactive to light bilaterally. CV: Heart regular in rate and rhythm positive S1 and S2. No S3. No S4. No clicks, rubs or murmurs. No JVD. Peripheral pulses equal but diminished Lungs: Fine crackles to bilateral bases. No wheezes rales or rhonchi. Respirations even, but labored. No intercostal retractions. currently on 6L NC Abdomen/GI: Soft. Bowel sounds present in all 4 quadrants. Bowel sounds normoactive. No abdominal tenderness. : Alves catheter draining clear, yellow urine Musculoskeletal/ Extremities: + generalized weakness. No tenderness on muscular exam. No edema No ecchymosis. Skin: Stage II ulcer to coccyx, unstageable wound to left greater toe, Right anterior pedal ulcer. Neurologic: Awake, alert and oriented times 3. Psychiatric: Depressed and agitated. Judgement and insight intact. Vital Signs Temp Pulse Pulse Resp BP Pulse Ox 07/01/21 09:03 96 07/01/21 09:01 78 07/01/21 04:00 97.9 F 71 20 138/63 97 06/30/21 23:30 98.2 F 73 22 138/62 97 06/30/21 20:00 98.0 F 78 20 138/64 90 L 06/30/21 19:28 76 06/30/21 19:15 80 06/30/21 18:49 90 L 06/30/21 17:05 92 L 06/30/21 16:02 91 L 06/30/21 15:50 81 126/59 77 L 06/30/21 15:35 72 06/30/21 15:25 72 06/30/21 12:53 74 16 117/54 94 L 06/30/21 12:29 84 06/30/21 12:17 79 Intake and Output 06/30/21 07/01/21 07/01/21 22:59 06:59 14:59 Intake Total 120 120 Output Total 600 525 Balance -480 -525 120 Intake: Oral 120 120 Output: Urine 600 525 Other: Voiding Method Indwelling Catheter Indwelling Catheter Weight 68 kg Results CBC & Chem 7: 06/28/21 08:10 07/01/21 08:24 Labs: Abnormal Lab Results - Last 24 Hours (Table) 06/29/21 06/30/21 06/30/21 Range/Units 12:44 10:03 11:21 Carbon Dioxide 34 H (22-30) mmol/L BUN 51 H (9-20) mg/dL Creatinine 1.40 H (0.66-1.25) mg/dL Glucose 119 H (74-99) mg/dL POC Glucose (mg/dL) 183 H (75-99) mg/dL Calcium 7.9 L (8.4-10.2) mg/dL Albumin (PEP) 2.17 L (3.80-4.90) g/dL Yobzv-9-Nazmzfuyt 0.66 H (0.10-0.40) g/dL Oflxx-5-Zkaupyoge 1.04 H (0.60-1.00) g/dL 06/30/21 06/30/21 Range/Units 16:53 19:06 Carbon Dioxide (22-30) mmol/L BUN (9-20) mg/dL Creatinine (0.66-1.25) mg/dL Glucose (74-99) mg/dL POC Glucose (mg/dL) 245 H 319 H (75-99) mg/dL Calcium (8.4-10.2) mg/dL Albumin (PEP) (3.80-4.90) g/dL Pbowd-4-Wwtjqbade (0.10-0.40) g/dL Objca-9-Kbwuytqic (0.60-1.00) g/dL Chest x-ray: report reviewed, image reviewed Assessment and Plan Assessment: Social - 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 He is and has 2 sons. He lives with his and his bciika-vg-twb, both which are not well and unable to care for him. He is a former smoker and quit approximately 10 years ago. He is also a former drinker and quit approximately 20 years ago. When asked what activities he enjoys he state "Nothing, I've been too sick to do anything." Spiritual/Cultural - Fred considers himself fairly adventist and is Mu-Ism. His spiritual beliefs are a source of comfort to him. He does not belong to a particular mormonism. No cultural practices/restrictions identified. Functional - The patient states he is unable to tolerate much activity now due to generalized weakness and sob. His activity tolerance has declined significantly in the last 2 weeks. Prior to admission, the patient states he was able to ambulate independently with a walker. He was able to straight cath himself and feed himself. He denies any dysphagia. Today he states "I can't hardly do anything." PPS - 30% Debility with weakness NYHA Class IV Pain - 6/10 to feet, conrtolled with prescribed Beulah Psych/Emotional - The patient states he feels as though he has a good support system with his family. Fred stated he feels hopeless and depressed. He is "sick of all the poking and jabbing". He states he does not want to continue treatment and stop coming to the hospital. Plan: Summary/Goals - The patient was educated on his disease progression and multiple co-morbidities. His goal is to optimize comfort measures and promote quality of life for his time remaining. He is aware that his son, Amador, has a meeting with Dr. Duff today and would like to talk with him before making any decisions regarding Hospice. The patient is a DNR. Plan - Discharge back to [facility] today, transsition to Hospice care if no improvement Naida Jimenes [facility] Palliative Care Spectralink [phone] Email: [email or web address] Time with Patient: Greater than 30
[2021-07-01 13:49] LABS: Free Kappa Lt Chain Qnt, Serum 11.45 mg/dL (0.33-1.94); Free Lambda Lt Chain Qnt, Seru 10.12 mg/dL (0.57-2.63)
--- NOTE | 2021-07-01 15:53 | P.PN ---
Subjective Progress Note Date: 07/01/21 Principal diagnosis: anemia in follow-up patient denies any new complaints, no bleeding. His feet continue to be sore. Objective - Vital Signs Vital signs: Vital Signs Temp 98.5 F 07/01/21 08:00 Pulse 75 07/01/21 11:15 Resp 17 07/01/21 11:15 BP 138/62 07/01/21 11:15 Pulse Ox 95 07/01/21 11:15 Intake & Output 06/30/21 07/01/21 07/01/21 18:59 06:59 18:59 Intake Total 240 120 Output Total 600 525 300 Balance -360 -525 -180 Weight 68 kg Intake: Oral 240 120 Output: Urine 600 525 300 Other: Voiding Method Indwelling Catheter Indwelling Catheter Indwelling Catheter - Constitutional General appearance: Present: average body habitus, cooperative, no acute distress - EENT Eyes: Present: anicteric sclerae, EOMI ENT: Present: hearing grossly normal - Respiratory Details: Aspirations even and unlabored at rest - Musculoskeletal Musculoskeletal: Present: generalized weakness - Psychiatric Psychiatric: Present: A&O x's 3, appropriate affect, intact judgment & insight - Labs CBC & Chem 7: 06/28/21 08:10 07/01/21 08:24 Labs: Abnormal Lab Results - Last 24 Hours (Table) 06/29/21 06/30/21 06/30/21 Range/Units 12:44 16:53 19:06 Carbon Dioxide (22-30) mmol/L BUN (9-20) mg/dL Creatinine (0.66-1.25) mg/dL Glucose (74-99) mg/dL POC Glucose (mg/dL) 245 H 319 H (75-99) mg/dL Calcium (8.4-10.2) mg/dL Magnesium (1.6-2.3) mg/dL Albumin (PEP) 2.17 L (3.80-4.90) g/dL Pzwks-9-Qqrdetjat 0.66 H (0.10-0.40) g/dL Izehh-0-Vegjpadtm 1.04 H (0.60-1.00) g/dL Free Mccall LC, Quant 11.45 H (0.33-1.94) mg/dL Free Lambda LC, Quant 10.12 H (0.57-2.63) mg/dL 07/01/21 07/01/21 Range/Units 08:24 11:48 Carbon Dioxide 39 H (22-30) mmol/L BUN 44 H (9-20) mg/dL Creatinine 1.60 H (0.66-1.25) mg/dL Glucose 64 L (74-99) mg/dL POC Glucose (mg/dL) 105 H (75-99) mg/dL Calcium 8.3 L (8.4-10.2) mg/dL Magnesium 2.4 H (1.6-2.3) mg/dL Albumin (PEP) (3.80-4.90) g/dL Tzrfv-9-Jmftykzue (0.10-0.40) g/dL Igntx-7-Dexuynnym (0.60-1.00) g/dL Free Mccall LC, Quant (0.33-1.94) mg/dL Free Lambda LC, Quant (0.57-2.63) mg/dL Assessment and Plan (1) Anemia Narrative/Plan: Normocytic, normochromic anemia, mild in 2018, progressive since 06/08. Ferritin increased since 06/08. CKD with elevated creatinine since 2015. Pt has lower extremity wounds, he states for few years, progressive last few months. There is documentation of sacral ulcers. Pt reports a Hx of ETOH, quitting 20 years ago. Based on PMH, recent progressive wounds and labs changes most likely anemia of chronic disease and acute/chronic inflammation. Reviewed orders. Hematology order for erythropoietin level was canceled, this was never communicated to us as to why. Attending has reordered. Pending results. Recommendation from the [employer] is begin SALVATORE supplementation. Protein electrophoresis is showing a very small IgG lambda and IgG kappa monoclonal protein, kappa and lambda light chains are both elevated but, ratio is near normal. At these levels this is not a significant finding and would not be acted upon at this time. There are other factors to be corrected first. Transfuse for Hgb<7 unless pt is symptomatic. Patient received 1 unit. CBC ordered for today. CBC ordered for tomorrow. Current Visit: Yes Status: Chronic Priority: High Code(s): D64.9 - ANEMIA, UNSPECIFIED SNOMED Code(s): 320639133
[2021-07-01 16:06] VITALS: BMI 24.2
[2021-07-01 16:19] LABS: Glucose,Whole Blood 194 mg/dL (75-99)
[2021-07-01 16:21] LABS: Anisocytosis Slight; Basophils # (A) 0.1 k/uL (0-0.2); Basophils % (A) 1 %; Eosinophils # (A) 0.1 k/uL (0-0.7); Eosinophils % (A) 2 %; HCT 32.3 % (39.0-53.0); HGB 9.9 gm/dL (13.0-17.5); Hypochromasia Moderate; Lymphocytes # (A) 0.8 k/uL (1.0-4.8); Lymphocytes % (A) 13 %; MCH 27.9 pg (25.0-35.0); MCHC 30.7 g/dL (31.0-37.0); MCV 90.9 fL (80.0-100.0); Mean Platelet Volume 7.7; Monocytes # (A) 0.3 k/uL (0-1.0); Monocytes % (A) 4 %; Neutrophils % (A) 79 %; Platelet Count 154 k/uL (150-450); RBC 3.56 m/uL (4.30-5.90); WBC 6.4 k/uL (3.8-10.6)
[2021-07-01 16:26] VITALS: BP 126/77; PULSE 77; RESP 15; TEMP 98.2
[2021-07-01] MEDS: ZINC SULFATE 220 MG CAP PO SCH (16:59)
[2021-07-01] MEDS: CHOLECALCIFEROL 25 MCG (1000 IU) TABLET PO SCH (16:59)
--- NOTE | 2021-07-02 09:57 | P.DS ---
Providers Date of admission: 06/25/21 13:59 Attending physician: Fred Duff Consults: 06/25/21 13:59 Consult Physician Urgent Consulting Provider: [facility] Consult Reason/Comments: Non-STEMI Do you want consulting provider notified?: Yes 06/27/21 12:29 Consult Physician Routine Consulting Provider: Orlando Munguia Consult Reason/Comments: Anemia Do you want consulting provider notified?: Yes 06/27/21 12:42 Consult Physician Routine Consulting Provider: Gennaro Laughlin Consult Reason/Comments: Ac on CKD Do you want consulting provider notified?: Yes Primary care physician: Fred Duff - Discharge Diagnosis(es) (1) Dehydration Current Visit: Yes Status: Acute (2) Non-STEMI (non-ST elevated myocardial infarction) Current Visit: Yes Status: Acute (3) Non-pressure chronic ulcer of other part of right foot with fat layer exposed Current Visit: Yes Status: Acute (4) Pulmonary edema Current Visit: Yes Status: Acute (5) Anemia Current Visit: Yes Status: Chronic Priority: High (6) High risk for readmission Current Visit: No Status: Acute (7) Chronic renal disease, stage 3, moderately decreased glomerular filtration rate (GFR) between 30-59 mL/min/1.73 square meter Current Visit: Yes Status: Acute (8) Urinary retention Current Visit: No Status: Acute Priority: Medium (9) Urinary tract infection Current Visit: No Status: Acute Hospital Course: This is a gentleman that was admitted for multiple problems from [facility] he was admitted last week for hypoglycemic event which was corrected however he returns with further medical debility and apparent none ST segment elevated myocardial infarction. He has continued to deteriorate medically he's had 3 admissions in the past month all for 3 to separate medical diagnosis is discussed with family son in particular ubaldo about his eating increasing dependency and decreasing declining health Patient Condition at Discharge: Poor Plan - Discharge Summary Discharge Rx Participant: No New Discharge Prescriptions: No Action Levothyroxine Sodium [Synthroid] 50 mcg PO DAILY@0600 Ipratropium-Albuterol Nebulize [Duoneb 0.5 mg-3 mg/3 ml Soln] 3 ml INHALATION RT-QID #0 ml Atorvastatin [Lipitor] 80 mg PO HS tab Magnesium Hydroxide [Milk of Magnesia Concentrate] 7,200 mg PO Q48H PRN PRN Reason: Constipation Na Phos,M-B/Na Phos,Di-Ba [Fleet Adult] 133 ml RECTAL DAILY PRN PRN Reason: Constipation Acetaminophen Tab [Tylenol] 650 mg PO Q6H PRN PRN Reason: Fever And/ Or Pain Zinc Sulfate [Orazinc] 220 mg PO DAILY@1700 Docusate [Colace] 100 mg PO BID@0800,1700 Pantoprazole [Protonix] 40 mg PO DAILY@0600 Cholecalciferol [Vitamin D3 (25 Mcg = 1000 Iu)] 50 mcg PO DAILY@1700 Isosorbide Mononitrate ER [Imdur] 30 mg PO DAILY@0800 carvediloL [Coreg] 3.125 mg PO BID@0800,1700 Clopidogrel [Plavix] 75 mg PO DAILY@0800 Aspirin 81 mg PO DAILY@1700 Ascorbic Acid [Vitamin C] 500 mg PO BID@0800,1700 HYDROcodone/APAP 5-325MG [Buchanan 5-325] 1 tab PO Q6H PRN #12 tab PRN Reason: Pain Ipratropium-Albuterol Nebulize [Duoneb 0.5 mg-3 mg/3 ml Soln] 3 ml INHALATION RT-Q4H PRN PRN Reason: Shortness Of Breath Or Wheezing Gilbert Packet 1 packet PO BID@0800,1700 Nitroglycerin Sl Tabs [Nitrostat] 0.4 mg SL Q5M PRN PRN Reason: Chest Pain bisacodyL [Dulcolax] 10 mg RECTAL DAILY PRN PRN Reason: Constipation Budesonide [Pulmicort] 1 mg INHALATION RT-BID@0800,1700 Furosemide [Lasix] 40 mg PO BID@0800,1700 metOLazone 2.5 mg PO MOWEFR@0600 Insulin Detemir (Levemir) [Levemir] 10 unit SQ HS #0 Gabapentin [Neurontin] 400 mg PO TID@0600,1400,2100 #9 cap INSULIN LISPRO (HumaLOG) [humaLOG] See Protocol SQ ACHS Discharge Medication List Levothyroxine Sodium [Synthroid] 50 mcg PO DAILY@0600 05/09/21 [History] Atorvastatin [Lipitor] 80 mg PO HS tab 06/14/21 [Rx] Ipratropium-Albuterol Nebulize [Duoneb 0.5 mg-3 mg/3 ml Soln] 3 ml INHALATION RT-QID #0 ml 06/14/21 [Rx] Acetaminophen Tab [Tylenol] 650 mg PO Q6H PRN 06/22/21 [History] Ascorbic Acid [Vitamin C] 500 mg PO BID@0800,169906/22/21 [History] Aspirin 81 mg PO DAILY@169906/22/21 [History] Budesonide [Pulmicort] 1 mg INHALATION RT-BID@0800,169906/22/21 [History] Cholecalciferol [Vitamin D3 (25 Mcg = 1000 Iu)] 50 mcg PO DAILY@169906/22/21 [History] Clopidogrel [Plavix] 75 mg PO DAILY@79906/22/21 [History] Docusate [Colace] 100 mg PO BID@0800,169906/22/21 [History] Furosemide [Lasix] 40 mg PO BID@0800,169906/22/21 [History] Isosorbide Mononitrate ER [Imdur] 30 mg PO DAILY@79906/22/21 [History] Magnesium Hydroxide [Milk of Magnesia Concentrate] 7,200 mg PO Q48H PRN 06/22/21 [History] Na Phos,M-B/Na Phos,Di-Ba [Fleet Adult] 133 ml RECTAL DAILY PRN 06/22/21 [History] Nitroglycerin Sl Tabs [Nitrostat] 0.4 mg SL Q5M PRN 06/22/21 [History] Pantoprazole [Protonix] 40 mg PO DAILY@59906/22/21 [History] Zinc Sulfate [Orazinc] 220 mg PO DAILY@169906/22/21 [History] bisacodyL [Dulcolax] 10 mg RECTAL DAILY PRN 06/22/21 [History] carvediloL [Coreg] 3.125 mg PO BID@0800,169906/22/21 [History] metOLazone 2.5 mg PO MOWEFR@59906/22/21 [History] Gabapentin [Neurontin] 400 mg PO TID@0600,1400,2100 #9 cap 06/23/21 [Rx] HYDROcodone/APAP 5-325MG [Buchanan 5-325] 1 tab PO Q6H PRN #12 tab 06/23/21 [Rx] Insulin Detemir (Levemir) [Levemir] 10 unit SQ HS #0 06/23/21 [Rx] INSULIN LISPRO (HumaLOG) [humaLOG] See Protocol SQ ACHS 06/25/21 [History] Ipratropium-Albuterol Nebulize [Duoneb 0.5 mg-3 mg/3 ml Soln] 3 ml INHALATION RT-Q4H PRN 06/25/21 [History] Gilbert Packet 1 packet PO BID@0800,1700 06/25/21 [History] Follow up Appointment(s)/Referral(s): Caden Garcias MD [STAFF PHYSICIAN] - 1 Week Fred Duff DO [Primary Care Provider] - 1-2 days
--- NOTE | 2021-07-05 11:19 | CDI ---
Documentation Clarification Form Date: 07/05/2021 11:12:05 AM From: John Alanis Admit Date: 06/25/2021 01:59:00 PM Patient Name: Fred Patton Visit Number: [id number] Discharge Date: 07/01/2021 06:21:00 PM ATTENTION: The Clinical Documentation Specialists (CDI) and [facility] Coding Staff appreciate your assistance in clarifying documentation. Please respond to the clarification below the line at the bottom and electronically sign. The CDI & [facility] Coding staff will review the response and follow-up if needed. Please note: Queries are made part of the Legal Health Record. If you have any questions, please contact the author of this message via ITS. Dr. Fred Duff Conflicting documentation has been found in the medical record. As attending physician, please provide clarification. H+P: CHF exacerbation with BNP 18,700 Progress note 07/01: chronic systolic CHF History/Risk Factors: hx of systolic CHF Clinical Indicators: BNP 18,700 Treatment: IV Lasix pus Please clarify which diagnosis is most appropriate: [ ] chronic systolic CHF [X ] acute on chronic systolic CHF [ ] Other (please specify) [ ] Unable to determine MTDD
== END 2021-07-01 18:21 | DRG 280 ==
LOC: EC 11:57 → 3SCARD 13:59
PROVIDERS: ADMIT Family Medicine; ATTEND Family Medicine
DX: I13.0 Hypertensive heart and chronic kidney disease with heart failure and stage 1 through stage 4 chronic kidney disease, or unspecified chronic kidney disease (principal); I21.A1 Myocardial infarction type 2; I50.23 Acute on chronic systolic (congestive) heart failure; N17.9 Acute kidney failure, unspecified; I50.22 Chronic systolic (congestive) heart failure; N39.0 Urinary tract infection, site not specified; D63.1 Anemia in chronic kidney disease; E03.9 Hypothyroidism, unspecified; Z86.16 Personal history of COVID-19; E11.22 Type 2 diabetes mellitus with diabetic chronic kidney disease; E11.51 Type 2 diabetes mellitus with diabetic peripheral angiopathy without gangrene; E11.621 Type 2 diabetes mellitus with foot ulcer; E61.1 Iron deficiency; E78.5 Hyperlipidemia, unspecified; E86.0 Dehydration; E87.6 Hypokalemia; N18.32 Chronic kidney disease, stage 3b; I25.10 Atherosclerotic heart disease of native coronary artery without angina pectoris; I25.2 Old myocardial infarction; I27.20 Pulmonary hypertension, unspecified; I34.0 Nonrheumatic mitral (valve) insufficiency; I45.10 Unspecified right bundle-branch block; J44.9 Chronic obstructive pulmonary disease, unspecified; L89.152 Pressure ulcer of sacral region, stage 2; L89.890 Pressure ulcer of other site, unstageable; L97.512 Non-pressure chronic ulcer of other part of right foot with fat layer exposed; L97.529 Non-pressure chronic ulcer of other part of left foot with unspecified severity; M12.9 Arthropathy, unspecified; T50.2X5A Adverse effect of carbonic-anhydrase inhibitors, benzothiadiazides and other diuretics, initial encounter; Z66 Do not resuscitate; Z79.02 Long term (current) use of antithrombotics/antiplatelets; Z79.4 Long term (current) use of insulin; Z79.82 Long term (current) use of aspirin; Z79.890 Hormone replacement therapy; Z79.899 Other long term (current) drug therapy; Z82.49 Family history of ischemic heart disease and other diseases of the circulatory system; Z83.3 Family history of diabetes mellitus; Z86.73 Personal history of transient ischemic attack (TIA), and cerebral infarction without residual deficits; Z87.891 Personal history of nicotine dependence; Z95.1 Presence of aortocoronary bypass graft; Z96.1 Presence of intraocular lens; Z98.41 Cataract extraction status, right eye; Z98.42 Cataract extraction status, left eye; Z98.61 Coronary angioplasty status; R33.9 Retention of urine, unspecified
CPT/HCPCS: 36415; 71046; 80048; 80053; 80061; 81001; 82272; 82607; 82668; 82728; 82746; 83540; 83550; 83735; 83880; 83883; 83921; 84165; 84439; 84443; 84484; 85025; 85027; 85045; 86038; 86334; 86431; 86850; 86900; 86901; 86920; 87635; 93005; 94640; 94760; 96374; 99291